=== PATIENT | female | born 1955 | race African-American/Black ===

== ENCOUNTER 2017-01-01 01:33 | Observation (INO) | payer OTHER ==
--- NOTE | 2017-01-01 02:16 | PDOC ---
History of Present Illness - History of Present Illness Initial Comments: 01/01/17 03:09 The patient is a 61 year old female with a PMHx of HIV, diabetes, glaucoma who presents to the ED with chronic low back pain. She states that the pain is worse than usual, so she is requesting pain medication. She denies weakness, numbness. She denies fever, chills, nausea, vomiting, diarrhea. <Aparna Wallace - Last Filed: 01/01/17 03:08> <Natalie Vidal - Last Filed: 01/01/17 07:22> - General Chief Complaint: Chronic pain Stated Complaint: BACK PAIN Time Seen by Provider: 01/01/17 02:16 Past History <Aparna Wallace - Last Filed: 01/01/17 03:08> - Past Medical History Diabetes: Yes HTN: Yes HIV: Yes Thyroid Disease: Yes - Surgical History Abdominal Surgery: Yes Appendectomy: Yes - Immunization History Immunization Up to Date: Yes - Psycho/Social/Smoking Cessation Hx Anxiety: No Suicidal Ideation: No Smoking Status: No Smoking History: Never smoked Have you smoked in the past 12 months: No Information on smoking cessation initiated: No Hx Alcohol Use: No Drug/Substance Use Hx: No Substance Use Type: None <Natalie Vidal - Last Filed: 01/01/17 07:22> - Past Medical History Allergies/Adverse Reactions: Allergies Allergy/AdvReac Type Severity Reaction Status Date / Time metronidazole [From Flagyl] Allergy Verified 01/01/17 01:46 Home Medications: Ambulatory Orders Aspirin [ASA -] 81 mg PO DAILY 12/18/15 Efavirenz/Emtricitab/Tenofovir [Atripla Tablet -] 1 tab PO DAILY 12/18/15 Hydrochlorothiazide 25 mg PO DAILY 12/18/15 Insulin Aspart [Novolog Flexpen] 10 unit SQ TID 12/18/15 Insulin Glargine,Hum.rec.anlog [Lantus Solostar PEN -] 55 units SQ HS 12/18/15 Metformin HCl [Glucophage] 1,000 mg PO AM 12/18/15 Doxepin HCl 200 mg PO DAILY 01/06/16 Metformin HCl 500 mg PO ACDIN 01/06/16 Ziprasidone HCl [Geodon] 40 mg PO DAILY 01/06/16 Review of Systems - Review of Systems Comments:: 01/01/17 03:09 GENERAL/CONSTITUTIONAL: No fever or chills. No weakness. HEAD, EYES, EARS, NOSE AND THROAT: No change in vision. No ear pain or discharge. No sore throat. CARDIOVASCULAR: No chest pain or shortness of breath. RESPIRATORY: No cough, wheezing, or hemoptysis. GASTROINTESTINAL: No nausea, vomiting, diarrhea or constipation. GENITOURINARY: No dysuria, frequency, or change in urination. MUSCULOSKELETAL: + low back pain. No joint or muscle swelling or pain. No neck pain. SKIN: No rash NEUROLOGIC: No headache, vertigo, loss of consciousness, or change in strength/ sensation. ENDOCRINE: No increased thirst. No abnormal weight change. HEMATOLOGIC/LYMPHATIC: No anemia, easy bleeding, or history of blood clots. ALLERGIC/IMMUNOLOGIC: No hives or skin allergy. <Aparna Wallace - Last Filed: 01/01/17 03:08> *Physical Exam - Vital Signs Last Vital Signs Temp Pulse Resp BP Pulse Ox 97.2 F L 105 H 20 160/89 96 01/01/17 01:46 01/01/17 01:46 01/01/17 01:46 01/01/17 01:46 01/01/17 01:46 - Physical Exam Comments: 01/01/17 03:09 GENERAL: Awake, alert, and fully oriented, in no acute distress HEAD: No signs of trauma EYES: PERRLA, EOMI, sclera anicteric, conjunctiva clear ENT: Auricles normal inspection, hearing grossly normal, nares patent, oropharynx clear without exudates. Moist mucosa NECK: Normal ROM, supple, no lymphadenopathy, JVD, or masses LUNGS: Breath sounds equal, clear to auscultation bilaterally. No wheezes, and no crackles HEART: Regular rate and rhythm, normal S1 and S2, no murmurs, rubs or gallops ABDOMEN: Soft, nontender, normoactive bowel sounds. No guarding, no rebound. No masses EXTREMITIES: + back tenderness. No bony deformities. Normal range of motion, no edema. No clubbing or cyanosis. No cords, erythema, or tenderness NEUROLOGICAL: Cranial nerves II through XII grossly intact. Normal speech, normal gait SKIN: Warm, Dry, normal turgor, no rashes or lesions noted. <Aparna Wallace - Last Filed: 01/01/17 03:08> - Vital Signs Last Vital Signs Temp Pulse Resp BP Pulse Ox 97.2 F L 105 H 20 160/89 96 01/01/17 01:46 01/01/17 01:46 01/01/17 01:46 01/01/17 01:46 01/01/17 01:46 <Natalie Vidal - Last Filed: 01/01/17 07:22> ED Treatment Course - Medications Given in the ED: ED Medications Discontinued Medications Generic Name Dose Route Start Last Admin Trade Name Guillaumeq PRN Reason Stop Dose Admin Cyclobenzaprine HCl 10 mg 01/01/17 02:34 01/01/17 02:44 Flexeril - PO 01/01/17 02:35 10 mg ONCE ONE Administration Ketorolac Tromethamine 60 mg 01/01/17 02:35 01/01/17 02:45 Toradol Injection - IM 01/01/17 02:36 60 mg ONCE ONE Administration <Aparna Wallace - Last Filed: 01/01/17 03:08> - LABORATORY CBC & Chemistry Diagram: 01/01/17 05:40 01/01/17 05:40 <Natalie Vidal - Last Filed: 01/01/17 07:22> Medical Decision Making - Medical Decision Making 01/01/17 07:12 Pt comes in with her "usual back pain" however she has tachycardia and she has a history of HIV and diabetes and she has abdominal pain. Pt admits that todays pain is worse than her usual pain. She is a poor historian. 01/01/17 07:16 Patient Name: Saniya Gold This is a preliminary report by imaging sr. operations manager Exam: Noncontrast CT abdomen and pelvis Images: 544 Clinical indication: Back pain. HIV positive. Findings: Subsegmental dependent atelectatic changes are noted in the lung bases. The liver, gallbladder, spleen and pancreas all have a normal unenhanced appearance. The adrenal glands are unremarkable. The kidneys have a normal unenhanced appearance. No calculi are seen. There is no hydronephrosis or hydroureter. A short segment of prominent small bowel is noted in the midabdomen measuring up to 3.3 cm in diameter. The majority of bowel is nondistended. The appendix has a normal appearance. Colonic diverticulosis is noted without evidence of diverticulitis. The uterus is anteverted. A fibroid is noted in the fundus. No adnexal masses are seen. Fat- containing ventral hernias are noted. The urinary bladder is unremarkable. No abdominal or pelvic adenopathy is seen. No lytic or blastic destructive osseous lesions are seen. Impression: Short segment of distended small bowel could be transient and physiologic. There is no associated mesenteric infiltration. This could also represent an early or low grade bowel obstruction. Fibroid uterus. No inflammatory process identified in the abdomen or pelvis. No abdominal mass, adenopathy or collection seen. THIS DOCUMENT HAS BEEN ELECTRONICALLY SIGNED 01/01/17 07:21 Pt will be signed out to the day doctor. She is awaiting EKG; and zosyn abx; ( NOTE SHE IS ALLERGIC TO FLAGYL) she will require admission. <Natalie Vidal - Last Filed: 01/01/17 07:22> *DC/Admit/Observation/Transfer - Attestations Scribe Attestion: 01/01/17 03:10 Documentation prepared by Aparna Wallace, acting as medical billing coordinator for Natalie Vidal MD. <Aparna Wallace - Last Filed: 01/01/17 03:08> <Natalie Vidal - Last Filed: 01/01/17 07:22> Diagnosis at time of Disposition: HIV disease, Bowel obstruction - Discharge Dispostion Condition at time of disposition: Guarded - Referrals Referrals: STAFF,NOT ON [Primary Care Provider] -
[2017-01-01] MEDS ORDERED: CYCLOBENZAPRINE HCL 10 MG TABLET (FP) PO ONE (02:34)
[2017-01-01] MEDS ORDERED: KETOROLAC TROMETHAMINE 60 MG/2 ML VIAL IM ONE (02:35)
[2017-01-01] MEDS ORDERED: CYCLOBENZAPRINE HCL 10 MG TABLET (FP) ONE (02:37)
[2017-01-01] MEDS ORDERED: KETOROLAC TROMETHAMINE 60 MG/2 ML VIAL ONE (02:37)
[2017-01-01 03:17] LABS: URINE APPEARANCE CLEAR; URINE BILIRUBIN NEGATIVE (NEGATIVE); URINE COLOR STRAW; URINE GLUCOSE (UA) 3+ (NEGATIVE); URINE KETONE NEGATIVE (NEGATIVE); URINE NITRITE NEGATIVE (NEGATIVE); URINE UROBILINOGEN NEGATIVE E.U./dl (0.2-1.0)
[2017-01-01 03:25] LABS: URINE BLOOD 1+ (NEGATIVE); URINE LEUK ESTERASE 1+ (NEGATIVE); URINE PROTEIN 2+ (NEGATIVE)
[2017-01-01 03:27] LABS: URINE BACTERIA RARE /hpf (NONE SEEN); URINE RBC 7 /hpf (0-3); URINE WBC 10 /hpf (3-5)
[2017-01-01] MEDS ORDERED: SODIUM CHLORIDE 0.9% 500 ML INFUS.BAG IV ONE (05:20)
[2017-01-01 06:14] LABS: MCH 29.6 pg (25.7-33.7); MCHC 32.7 g/dl (32.0-36.0); MEAN CELL VOLUME 90.3 fl (80-96); MEAN PLT VOLUME 8.5 fl (7.5-11.1); PLATELET COUNT 309 K/MM3 (134-434); RDW 13.6 % (11.6-15.6); WHITE BLOOD COUNT 16.1 K/mm3 (4.0-10.0)
[2017-01-01 06:36] LABS: ALBUMIN 3.3 g/dl (3.4-5.0); BILIRUBIN,TOTAL 0.2 mg/dL (0.2-1.0); CALCIUM 9.1 mg/dL (8.5-10.1); CREATININE 1.8 mg/dL (0.55-1.02); TOT PROT 7.8 g/dl (6.4-8.2)
[2017-01-01 06:52] LABS: PLATELET ESTIMATE ADEQUATE (NORMAL)
[2017-01-01 07:18] LABS: TROPONIN I 0.02 ng/ml (0.00-0.05)
[2017-01-01] MEDS ORDERED: PIPERACILLIN/TAZOB 3.375 GM 3.375 GM in DEXTROSE 5%-WATER - 50 ML IVPB ONE (07:18)
[2017-01-01] MEDS ORDERED: PIPERACILLIN/TAZOB 3.375 GM 50 ML IVPB ONE (07:23)
--- NOTE | 2017-01-01 11:06 | PDOC ---
*Physical Exam - Vital Signs Last Vital Signs Temp Pulse Resp BP Pulse Ox 97.3 F L 81 18 110/76 97 01/01/17 09:40 01/01/17 09:40 01/01/17 09:40 01/01/17 09:40 01/01/17 09:40 ED Treatment Course - LABORATORY CBC & Chemistry Diagram: 01/01/17 05:40 01/01/17 05:40 - ADDITIONAL ORDERS Additional order review: Laboratory Results 01/01/17 01/01/17 01/01/17 06:44 05:40 03:05 Sodium 134 L Potassium 4.3 Chloride 100 Carbon Dioxide 24 Anion Gap 10 BUN 21 H D Creatinine 1.8 H D Creat Clearance w eGFR 28.60 Random Glucose 336 H* D Calcium 9.1 Total Bilirubin 0.2 D AST 14 L D ALT 13 Alkaline Phosphatase 210 H D Creatine Kinase 158 D CK-MB (CK-2) 5.642 H Troponin I 0.02 Total Protein 7.8 Albumin 3.3 L Urine Color Straw Urine Appearance Clear Urine pH 6.0 Ur Specific [place] 1.012 Urine Protein 2+ H Urine Glucose (UA) 3+ H Urine Ketones Negative Urine Blood 1+ H Urine Nitrite Negative Urine Bilirubin Negative Urine Urobilinogen Negative Ur Leukocyte Esterase 1+ H Urine RBC 7 Urine WBC 10 Ur Epithelial Cells Rare Urine Bacteria Rare 01/01/17 05:40 RBC 4.30 MCV 90.3 MCHC 32.7 RDW 13.6 MPV 8.5 Neutrophils % 38.0 L D Lymphocytes % 49.0 H Monocytes % 2.0 L Eosinophils % 1.0 - Medications Given in the ED: ED Medications Discontinued Medications Generic Name Dose Route Start Last Admin Trade Name Freq PRN Reason Stop Dose Admin Cyclobenzaprine HCl 10 mg 01/01/17 02:34 01/01/17 02:44 Flexeril - PO 01/01/17 02:35 10 mg ONCE ONE Administration Piperacillin Sod/Tazobactam 50 mls @ 100 mls/hr 01/01/17 07:18 01/01/17 07:35 Sod 3.375 gm/ Dextrose IVPB 01/01/17 07:47 100 mls/hr ONCE ONE Administration Protocol Ketorolac Tromethamine 60 mg 01/01/17 02:35 01/01/17 02:45 Toradol Injection - IM 01/01/17 02:36 60 mg ONCE ONE Administration Sodium Chloride 1,000 ml 01/01/17 05:20 01/01/17 06:03 Normal Saline - IV 01/01/17 05:21 1,000 ml ONCE ONE Administration Medical Decision Making - Medical Decision Making 01/01/17 11:01 Labs, CT and my repeat medical exam, Obs admit for Uncontrolled DM, and Abdominal Distention and low grade obstruction. Will assume she has a UTI[ Culture Pending] *DC/Admit/Observation/Transfer Diagnosis at time of Disposition: HIV disease, Hyperglycemia Bowel obstruction Qualifiers: Intestinal obstruction type: unspecified Qualified Code(s): K56.60 - Unspecified intestinal obstruction - Discharge Dispostion Condition at time of disposition: Guarded Admit: Yes - Referrals Referrals: STAFF,NOT ON [Primary Care Provider] - - Patient Instructions - Post Discharge Activity
[2017-01-01] MEDS ORDERED: ACETAMINOPHEN 325 MG TABLET (FP) PO PRN (12:20)
--- NOTE | 2017-01-01 12:47 | PN ---
Teaching Attending Note Name of Resident: Afua Fuentes ATTENDING PHYSICIAN STATEMENT I saw and evaluated the patient. I reviewed the resident's note and discussed the case with the resident. I agree with the resident's findings and plan as documented. SUBJECTIVE:61yo F c/o low back pain intermittent over the past 3 months. was started on gabapentin which typically alleviates the pain but states it did not help her pain this morning and prompted her to come to the ER. she states that she is still able to ambulate with the pain. pain is not moving and is limited to the back. reports no bowel/bladder incontinence. has not followed up with a doctor to further evaluate her back. states she last ate in the evening and tolerated well. had normal BM yesterday. passing significants amount of flatus and belching. no difficulty urinating. denies CP, SOB,fever, chills, N/V/C/D, dysuria, urinary frequency, hematuria, abdominal pain. recent abx use or travel. no sick contacts. states her viral load was checked last month and was undetectable. states she had abdominal surgery for hysterctomy and appendectomy. (however CT scan reports uterus and appendix) OBJECTIVE: Last Vital Signs Temp Pulse Resp BP Pulse Ox 97.3 F L 81 18 110/76 97 01/01/17 09:40 01/01/17 09:40 01/01/17 09:40 01/01/17 09:40 01/01/17 09:40 General NAD, flat affect CV S1 S2 RRR no murmur/rub/gallop Lungs CTA B/L no wheezing/rales/rhonchi Abdomen soft ND/NT hypoactive BS. tympanic throughout, obese, old surgical incision below the umbilicus Extremities no pedal edema, no rashes ASSESSMENT AND PLAN: 61yo F wtih PMH HTN, depression, HIV on HARRT, DM, presented to the ER and was admitted for further evaluation of their emergent condition 1. Early SBO- hx of abdominal surgery and doxepin. will make NPO for now and IVF. serial abdominal exam. await official read of CT scan however on my review no definite obstruction appreciated. significant ileus and fecal retention noted. will give suppository. after official read if pt continues to feel asymptomatic and no change in physical exam will consider advancing diet to liquids. repeat AXR in AM. consider surgical consult if theres change in status 2. SIRS- leukocytosis and tachycardia which can be pain induced. no urinary symptoms and CXR clear. on reviewing old labs appears pt appears to have chronic leukocytosis, will check BCx. was given zosyn in the ER. will hold off on continuing abx at this time and monitor labs. f/u cx 3. ERIKA- likely dehydration. IVF. monitor UOP. avoid nephrotoxic agents 4. Hyperglycemia- check A1c. BGM Q6H. hold metformin at this time. reduced dosing of lantus. iss, bgm 5. HTN- will hold HCTZ at this time for likely dehydration, if BP remains elevated will consider alternative agent 6. HIV- as per pt has undetectable viral load. hold HARRT 7. Depression- restart meds once tolerating po 8. DVT ppx- hep sq
--- NOTE | 2017-01-01 12:59 | HP ---
CHIEF COMPLAINT:low back pain PCP: HISTORY OF PRESENT ILLNESS: 61 year old female with a past medical history of HIV (on antivirals), Diabetes mellitus type II, and sciatica, present to the emergency room for worsening low back pain that has started this am. The pain is a 6/10, sharp, non radiating, in the region of the middle, low back. Patient denies lifting something heavy. She thinks she may have "twisted" her back. Patient denies fever, chills, n, v, chest pain, sob, abdominal pain, dysuria, polyuria. ER course was notable for: (1)WBC 16 (2)UA + LE +1, rbc 7, wbc 10 (3)imaging CT early/low grade bowel obstruction Recent Travel:no PAST MEDICAL HISTORY: DM type II, HIV, HTN, HLD, chronic low back pain PAST SURGICAL HISTORY: Right oophorectomy Social History: Smoking:no Alcohol:no Drugs: IVDA crack, heroin; quit ten years ago Family History: Allergies metronidazole [From Flagyl] Allergy (Verified 01/01/17 07:40) HOME MEDICATIONS: Home Medications Medication Instructions Recorded Aspirin [ASA -] 81 mg PO DAILY 12/18/15 Efavirenz/Emtricitab/Tenofovir 1 tab PO DAILY 12/18/15 [Atripla Tablet -] Hydrochlorothiazide 25 mg PO DAILY 12/18/15 Insulin Aspart [Novolog Flexpen] 10 unit SQ TID 12/18/15 Insulin Glargine,Hum.rec.anlog 55 units SQ HS 12/18/15 [Lantus Solostar PEN -] Metformin HCl [Glucophage] 1,000 mg PO AM 12/18/15 Doxepin HCl 200 mg PO DAILY 01/06/16 Metformin HCl 500 mg PO ACDIN 01/06/16 Ziprasidone HCl [Geodon] 40 mg PO DAILY 01/06/16 REVIEW OF SYSTEMS CONSTITUTIONAL: Absent: fever, chills, diaphoresis, generalized weakness, malaise, loss of appetite, weight change HEENT: Absent: rhinorrhea, nasal congestion, throat pain, throat swelling, difficulty swallowing, mouth swelling, ear pain, eye pain, visual changes CARDIOVASCULAR: Absent: chest pain, syncope, palpitations, irregular heart rate, lightheadedness , peripheral edema RESPIRATORY: Absent: cough, shortness of breath, dyspnea with exertion, orthopnea, wheezing, stridor, hemoptysis GASTROINTESTINAL: Absent: abdominal pain, abdominal distension, nausea, vomiting, diarrhea, constipation, melena, hematochezia GENITOURINARY: Absent: dysuria, frequency, urgency, hesitancy, hematuria, flank pain, genital pain MUSCULOSKELETAL: Present: low back pain, nonradiating Absent: myalgia, arthralgia, joint swelling, neck pain SKIN: Absent: rash, itching, pallor HEMATOLOGIC/IMMUNOLOGIC: Absent: easy bleeding, easy bruising, lymphadenopathy, frequent infections ENDOCRINE: Absent: unexplained weight gain, unexplained weight loss, heat intolerance, cold intolerance NEUROLOGIC: Absent: headache, focal weakness or paresthesias, dizziness, unsteady gait, seizure, mental status changes, bladder or bowel incontinence PSYCHIATRIC: Absent: anxiety, depression, suicidal or homicidal ideation, hallucinations. PHYSICAL EXAMINATION GENERAL: Awake, alert, and fully oriented, in no acute distress. HEAD: Normal with no signs of trauma. EYES: Pupils equal, round and reactive to light, extraocular movements intact, sclera anicteric, conjunctiva clear. No lid lag. EARS, NOSE, THROAT: Ears normal, nares patent, oropharynx clear without exudates. Moist mucous membranes. tongue with significant leukoplakia NECK: Normal range of motion, supple without lymphadenopathy, JVD, or masses. LUNGS: Breath sounds equal, clear to auscultation bilaterally. No wheezes, and no crackles. No accessory muscle use. HEART: Regular rate and rhythm, normal S1 and S2 without murmur, rub or gallop. ABDOMEN: Soft, nontender, not distended, normoactive bowel sounds, no guarding, no rebound, no masses. No hepatomegaly or splenomegaly. MUSCULOSKELETAL: Normal range of motion at all joints. tenderness to palpation of lower back , bl. + CVA tenderness. UPPER EXTREMITIES: 2+ pulses, warm, well-perfused. No cyanosis. No clubbing. Cap refill <2 seconds. No peripheral edema. LOWER EXTREMITIES: 2+ pulses, warm, well-perfused. No calf tenderness. No peripheral edema. NEUROLOGICAL: Cranial nerves II-XII intact. Normal speech. Normal gait. PSYCHIATRIC: Cooperative. Good eye contact. Appropriate mood and affect. SKIN: Warm, dry, normal turgor, no rashes or lesions noted. ASSESSMENT/PLAN: 61 year old female with PMH of HIV, DM II, chronic low back pain, presenting with worsening low back pain. Admitted for early/low grade obstruction and UTI. 1. Early/Low grade bowel obstruction: -NPO, bowel rest -IVF NS 75mls/hr -suppository -watch for clinical signs of resolving obstruction: belching, flatus -repeat abdominal x ray in the AM 2. SIRS criteria met: tachycardic >100; leukocytosis; secondary to questionable UTI: -wbc count 16: patient wbc baseline around 12 -1x antibiotic given in ER; will hold antibiotic for now; -await cultures urine and blood cultures 3. Diabetes Mellitus Type II: hyperglycemia -levemir 25U one time HS tonight -Insulin SS -Glucose check Q6h -hemoglobin a1c 4. HIV: -hold antivirals -current viral load undetectable as per patient; checked one month ago 5. HTN: -hydrochlorothiazide 25mg po ddaily : hold -hold until can tolerate po 6. Low back pain: -Lumbar spine xray did not indicate fracture -degenerative changes -tylenol 650mg po q4h prn for pain -flexeril as outpatient prn -f/u with ortho 7. Acute kidney injury: -hold all nephrotoxic drugs -BUN/Cr 21/1.8 -secondary to poor glycemic control, or home medication possibly metformin FEN: Fluids: NS 75mls. 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 Code(s): E11.29 - TYPE 2 DIABETES MELLITUS W OTH DIABETIC KIDNEY COMPLICATION (5) HIV (human immunodeficiency virus infection) Code(s): Z21 - ASYMPTOMATIC HUMAN IMMUNODEFICIENCY VIRUS INFECTION STATUS (6) HLD (hyperlipidemia) Code(s): E78.5 - HYPERLIPIDEMIA, UNSPECIFIED (7) Sciatica Code(s): M54.30 - SCIATICA, UNSPECIFIED SIDE Qualifiers: Laterality: bilateral Qualified Code(s): M54.31 - Sciatica, right side (8) Urinary tract infection Code(s): N39.0 - URINARY TRACT INFECTION, SITE NOT SPECIFIED Visit type - Emergency Visit Emergency Visit: Yes ED Registration Date: 01/01/17 Care time: The patient presented to the Emergency Department on the above date and was hospitalized for further evaluation of their emergent condition. - New Patient This patient is new to me today: Yes Date on this admission: 01/01/17 - Critical Care Critical Care patient: No
[2017-01-01] MEDS: SODIUM CHLORIDE 1,000 ML IV SCH (13:10)
[2017-01-01 13:55] VITALS: BMI 34.5
[2017-01-01] MEDS ORDERED: BISACODYL 10 MG SUPP.RECT RC ONE (14:00)
[2017-01-01] MEDS ORDERED: INSULIN SLIDING SCALE (NOVOLOG) 1 VIAL SQ SCH ×2 (16:30→18:00)
[2017-01-01] MEDS ORDERED: BISACODYL 10 MG SUPP.RECT PR ONE (17:23)
[2017-01-01] MEDS ORDERED: INSULIN DETEMIR 100 UNITS/ML MDV SQ ONE (21:00)
[2017-01-01] MEDS ORDERED: INSULIN DETEMIR 100 UNITS/ML MDV SQ SCH (22:00)
[2017-01-01] MEDS ORDERED: ZOLPIDEM TARTRATE 5 MG TABLET PO ONE ×2 (22:02)
[2017-01-01] MEDS: INSULIN SLIDING SCALE (NOVOLOG) 1 VIAL SQ SCH (22:06)
[2017-01-02] MEDS: HEPARIN NA (PORCINE) 5,000 UNITS/ML 1ML VIAL SQ SCH ×2 (01:59→10:41)
[2017-01-02] MEDS: SODIUM CHLORIDE 1,000 ML IV SCH (01:59)
[2017-01-02] MEDS: INSULIN SLIDING SCALE (NOVOLOG) 1 VIAL SQ SCH ×2 (06:17→11:19)
[2017-01-02 06:39] VITALS: TEMP 98.7
[2017-01-02 07:54] LABS: BASOPHIL 0.8 % (0-2.0); EOSINOPHIL 2.2 % (0-4.5); MCH 30.4 pg (25.7-33.7); MCHC 33.6 g/dl (32.0-36.0); MEAN CELL VOLUME 90.5 fl (80-96); MEAN PLT VOLUME 8.5 fl (7.5-11.1); NEUTROPHILS 43.3 % (42.8-82.8); PLATELET COUNT 244 K/MM3 (134-434); RDW 13.8 % (11.6-15.6); WHITE BLOOD COUNT 9.5 K/mm3 (4.0-10.0)
[2017-01-02 08:12] LABS: ALBUMIN 2.8 g/dl (3.4-5.0); CALCIUM 8.6 mg/dL (8.5-10.1); CREATININE 1.3 mg/dL (0.55-1.02)
[2017-01-02 08:14] LABS: BILIRUBIN,TOTAL 0.2 mg/dL (0.2-1.0); TOT PROT 6.5 g/dl (6.4-8.2)
[2017-01-02 10:05] VITALS: BP 149/88; PULSE 108
[2017-01-02] MEDS ORDERED: INSULIN (NOVOLOG) ASPART 100 UNITS/ML 10ML VIAL ONE (11:13)
--- NOTE | 2017-01-02 12:08 | PN ---
Teaching Attending Note Name of Resident: Afua Fuentes ATTENDING PHYSICIAN STATEMENT I saw and evaluated the patient. I reviewed the resident's note and discussed the case with the resident. I agree with the resident's findings and plan as documented. SUBJECTIVE:currently asymptomatic. states she had a large BM yesterday and a small one this morning. tolerating diet well. denies CP, SOB,fever, chills, N/V/ C/D OBJECTIVE: Last Vital Signs Temp Pulse Resp BP Pulse Ox 98.7 F 108 H 20 149/88 96 01/02/17 10:00 01/02/17 10:00 01/02/17 10:01/02/17 10:01/01/17 21:33 General NAD, flat affect CV S1 S2 RRR no murmur/rub/gallop Lungs CTA B/L no wheezing/rales/rhonchi Abdomen soft ND/NT hypoactive BS, obese, old surgical incision below the umbilicus Extremities no pedal edema, no rashes ASSESSMENT AND PLAN: 61yo F wtih PMH HTN, depression, HIV on HARRT, DM, presented to the ER and was admitted for further evaluation of their emergent condition 1. Early SBO- hx of abdominal surgery and on doxepin which is know to cause paralytic ileus. diet advanced to liquids last night. had BM last night and this morning. pt remains asymptomatic. further review of the chart shows ileus since 2014. AXR today shows ileus with fecal retention. pt states she has GI appointment the end of the month and there was possibility of colonoscopy. states she was started on stool softeners a week ago but has not been taking them. counseled in detail need to have minimum BM daily. encouraged to f/u with GI appointement. informed her of medication that can be related to her symtpoms and risks of her bowels being distended can lead to obstruction and perforation. informed her to eat high fiber diet. notified her of signs of obstruction and to report to ER if these symptoms develop. 2. SIRS- leukocytosis resolved. no signs of infection. no indication for abx. 3. ERIKA- likely dehydration.imrpoved. d/c ivf avoid nephrotoxic agents 4. Hyperglycemia- A1c 11.6. resume home regimen. counseled on diabetic diet and medication complaince. 5. HTN- will resume HCTZ 6. HIV- as per pt has undetectable viral load. cont HARRT 7. Depression- restart medications with hesitation, will defer to psychiatrist of changing medications 8. chronic back pain- tylenol prn pain. PT outpatient referral 9. DVT ppx- hep sq
--- NOTE | 2017-01-02 12:12 | EKG ---
Test Reason : Blood Pressure : / mmHG Vent. Rate : 099 BPM Atrial Rate : 099 BPM P-R Int : 148 ms QRS Dur : 080 ms QT Int : 384 ms P-R-T Axes : 048 -28 024 degrees QTc Int : 492 ms NORMAL SINUS RHYTHM MINIMAL VOLTAGE CRITERIA FOR LVH, MAY BE NORMAL VARIANT PROLONGED QT ABNORMAL ECG WHEN COMPARED WITH ECG OF 06-JAN-2016 10:55, NO SIGNIFICANT CHANGE WAS FOUND Confirmed by CAROLINA DE OLIVEIRA MD ([id number]) on 01/02/2017 12:12:15 PM Referred By: Confirmed By:CAROLINA DE OLIVEIRA MD
--- NOTE | 2017-01-02 15:34 | DS ---
Physical Exam: SUBJECTIVE: Patient seen and examined, ambulating without pain. Two watery bowel movements last night. Denies fever, chills, n, v, abdominal pain or back pain. OBJECTIVE: Vital Signs Period Temp Pulse Resp BP Sys/Isbell Pulse Ox Last 24 Hr 98.3 F-98.7 F 98-108 18-20 131-149/76-88 95-96 PHYSICAL EXAM GENERAL: The patient is awake, alert, and fully oriented, in no acute distress. HEAD: Normal with no signs of trauma. EYES: PERRL, extraocular movements intact, sclera anicteric, conjunctiva clear. ENT: Ears normal, nares patent, oropharynx clear without exudates, moist mucous membranes. NECK: Trachea midline, full range of motion, supple. LUNGS: Breath sounds equal, clear to auscultation bilaterally, no wheezes, no crackles, no accessory muscle use. HEART: Regular rate and rhythm, S1, S2 without murmur, rub or gallop. ABDOMEN: Soft, nontender, nondistended, normoactive bowel sounds, no guarding, no rebound, no hepatosplenomegaly, no masses. EXTREMITIES: 2+ pulses, warm, well-perfused, no edema. NEUROLOGICAL: Cranial nerves II through XII grossly intact. Normal speech, gait not observed. PSYCH: Normal mood, normal affect. SKIN: Warm, dry, normal turgor, no rashes or lesions noted. LABS CBC, BMP 01/02/17 06:15 01/02/17 06:15 HOSPITAL COURSE: Date of Admission:01/01/17 Date of Discharge: 01/02/17 This is a 61 year old female with a past medical history of depression, HIV on HARRT, DM type II, presented to the emergency room with worsening back pain. Patient found to have a early/mild small bowel obstruction vs dilation. She was kept NPO, started on IV hydration and pain was controlled with Tylenol. Patients 's diet was advanced, which she tolerated well. Repeat abdominal xray in the am did reveal ileus with fecal impaction. Patient started on stool softeners, counseled on diet. She has an appointment to she GI doctor this month. During admission patient fulfilled SIRS criteria with leukocytosis and tachycardia. This resolved the next day, no signs of infections and there was no indication for antibiotics. On admission, labs indicated acute kidney injury that was related to dehydration and improved. Patient also has uncontrolled diabetes, hemoglobin A1C was around 11. Patient was treated here with levemir and insulin sliding scale. She is advised to keep a tight glucose control and follow up with her primary regarding this issue. Patient has HIV, antivirals were held during hospital stay, due effects on kidney. Patient reveals viral load was undetectable last month. Patient also had a history of depression and on doxepin , that could cause paralytic ileus. Would advise speaking to her psychiatrist regarding possible change in this medication. Minutes to complete discharge: 40 Discharge Summary Reason For Visit: UTI, DIABETES MELLITUS, SMALL BOWEL OBSTRUCTION Current Active Problems Bowel obstruction (Acute) Fecal retention (Acute) HIV disease (Acute) Hyperglycemia (Acute) Ileus (Acute) Morbid obesity (Acute) Condition: Improved - Instructions Diet, Activity, Other Instructions: continue to take stool softeners daily to ensure you have daily bowel movements. Follow up with your GI doctor the end of the month for your scheduled appointment as you may require colonoscopy. your slow bowel movement may be related to your medication (Doxepin). Follow a diabetic, high fiber diet. Follow up with your primary care doctor this week take tylenol as needed for back pain, start doing physical therapy. you can schedule for outpatient physical therapy at [facility] for chronic back pain ([phone]). if your symptoms worsen than you may benefit from further evaluation from an orthopedic surgeon if you develop nausea and vomiting or abdominal pain return to the ER. Referrals: STAFF,NOT ON [Primary Care Provider] - Disposition: HOME - Home Medications Comprehensive Discharge Medication List: Ambulatory Orders Aspirin [ASA -] 81 mg PO DAILY 12/18/15 Efavirenz/Emtricitab/Tenofovir [Atripla Tablet -] 1 tab PO DAILY 12/18/15 Hydrochlorothiazide 25 mg PO DAILY 12/18/15 Insulin Aspart [Novolog Flexpen] 10 unit SQ TID 12/18/15 Insulin Glargine,Hum.rec.anlog [Lantus Solostar PEN -] 55 units SQ HS 12/18/15 Metformin HCl [Glucophage] 1,000 mg PO AM 12/18/15 Doxepin HCl 200 mg PO DAILY 01/06/16 Metformin HCl 500 mg PO ACDIN 01/06/16 Ziprasidone HCl [Geodon] 40 mg PO DAILY 01/06/16 Docusate Sodium [Colace -] 100 mg PO TID #90 capsule 01/02/17 Problem List - Problems (1) Bowel obstruction Code(s): K56.60 - UNSPECIFIED INTESTINAL OBSTRUCTION Qualifiers: Intestinal obstruction type: unspecified Qualified Code(s): K56.60 - Unspecified intestinal obstruction (2) HIV disease Code(s): B20 - HUMAN IMMUNODEFICIENCY VIRUS [HIV] DISEASE (3) Hyperglycemia Code(s): R73.9 - HYPERGLYCEMIA, UNSPECIFIED (4) DM type 2 causing renal disease Code(s): E11.29 - TYPE 2 DIABETES MELLITUS W OTH DIABETIC KIDNEY COMPLICATION (5) HIV (human immunodeficiency virus infection) Code(s): Z21 - ASYMPTOMATIC HUMAN IMMUNODEFICIENCY VIRUS INFECTION STATUS (6) HLD (hyperlipidemia) Code(s): E78.5 - HYPERLIPIDEMIA, UNSPECIFIED (7) Sciatica Code(s): M54.30 - SCIATICA, UNSPECIFIED SIDE Qualifiers: Laterality: bilateral Qualified Code(s): M54.31 - Sciatica, right side This patient is new to me today: No Emergency Visit: Yes ED Registration Date: 01/01/17 Care time: The patient presented to the Emergency Department on the above date and was hospitalized for further evaluation of their emergent condition. Critical Care patient: No - Discharge Referral Referred to [facility] No
== END 2017-01-02 12:00 | disposition home or self-care (01) ==
LOC: JER 01:33 → JERBED 11:07 → J5S 13:10
PROVIDERS: ADMIT Internal Medicine; ATTEND Internal Medicine
DX: K56.69 Other intestinal obstruction (principal); M54.5 Low back pain; E11.65 Type 2 diabetes mellitus with hyperglycemia; H40.89 Other specified glaucoma; N17.9 Acute kidney failure, unspecified; I10 Essential (primary) hypertension; E86.0 Dehydration; M54.31 Sciatica, right side; R65.10 Systemic inflammatory response syndrome (SIRS) of non-infectious origin without acute organ dysfunction; F32.9 Major depressive disorder, single episode, unspecified; N39.0 Urinary tract infection, site not specified; E78.5 Hyperlipidemia, unspecified; Z21 Asymptomatic human immunodeficiency virus [HIV] infection status
CPT/HCPCS: 36415; 71010-TC; 72100-TC; 74020-TC; 74176; 80053; 81003; 81015; 82550; 82553; 83036; 84484; 85025; 87040; 87086; 93005; 93010; 99285-25; G0378; J1644

== ENCOUNTER 2017-03-26 00:34 | Emergency (ER) | payer OTHER ==
[2017-03-26 01:15] VITALS: BP 128/81; PULSE 76; TEMP 97.9; BMI 34.8
[2017-03-26] MEDS ORDERED: OXYCODONE/APAP 5/325MG COMBO TABLET PO ONE (02:21)
--- NOTE | 2017-03-26 02:30 | PDOC ---
History of Present Illness - General Chief Complaint: Back Pain Stated Complaint: BACK PAIN Time Seen by Provider: 03/26/17 01:41 History Source: Patient Exam Limitations: No Limitations - History of Present Illness Initial Comments: 03/26/17 02:22 Patient is a 61 year old female with HIV+, HTN, glaucoma, DM, appendectomy, right oopherectomy, c/o lower back pain. States she was diagnosed with sciatica 2 months ago. Has been using Naproxen for pain without any relief. Pain is 9/10 throbbing, this episode started 3:30pm today. Took naproxen then without any improvement in symptoms. denies bowel or bladder incontinence, saddle anesthesia. PMD: Dr. Zuleta PMHX: as above PSocHx: PFamHX; noncontributary ALL:metronidazole GENERAL/CONSTITUTIONAL: [No fever or chills. No weakness. No weight change.] HEAD, EYES, EARS, NOSE AND THROAT: [No change in vision. No ear pain or discharge. No sore throat.] CARDIOVASCULAR: [No chest pain or shortness of breath.] RESPIRATORY: [No cough, wheezing, or hemoptysis.] GASTROINTESTINAL: [No nausea, vomiting, diarrhea or constipation. No rectal bleeding.] GENITOURINARY: [No dysuria, frequency, or change in urination.] MUSCULOSKELETAL: (+) joint or muscle swelling or pain. No neck or back pain.] SKIN AND BREASTS: [No rash or easy bruising.] NEUROLOGIC: [No headache, vertigo, loss of consciousness, or loss of sensation.] PSYCHIATRIC: [No depression or anxiety.] ENDOCRINE: [No increased thirst. No abnormal weight change.] HEMATOLOGIC/LYMPHATIC: [No anemia, easy bleeding, or history of blood clots.] ALLERGIC/IMMUNOLOGIC: [No hives or skin allergy. No latex allergy.] GENERAL: [The patient is awake, alert, and fully oriented, in no acute distress. ] HEAD: [Normal with no signs of trauma.] EYES: [Pupils equal, round and reactive to light, extraocular movements intact, sclera anicteric, conjunctiva clear.] ENT: [Ears normal, nares patent, oropharynx clear without exudates. Moist mucous membranes.] NECK: [Normal range of motion, supple without lymphadenopathy, JVD, or masses.] LUNGS: [Breath sounds equal, clear to auscultation bilaterally. No wheezes, and no crackles.] HEART: [Regular rate and rhythm, normal S1 and S2 without murmur, rub.] ABDOMEN: [Soft, nontender, normoactive bowel sounds. No guarding, no rebound. No masses.] BACK: tenderness b/l paraspinal tenderness lumbar, tenderness to the right buttock midline. EXTREMITIES: [Normal range of motion, no edema. No clubbing or cyanosis. No cords, erythema, or tenderness.] NEUROLOGICAL: [Cranial nerves II through XII grossly intact. Normal speech, normal gait with cane, (+) 5/5 strength b/l, DTR's intact] PSYCH: [Normal mood, normal affect.] SKIN: [Warm, Dry, normal turgor, no rashes or lesions noted.] Past History - Past Medical History Allergies/Adverse Reactions: Allergies Allergy/AdvReac Type Severity Reaction Status Date / Time metronidazole [From Flagyl] Allergy Verified 03/26/17 01:15 Home Medications: Ambulatory Orders Aspirin [ASA -] 81 mg PO DAILY 12/18/15 Efavirenz/Emtricitab/Tenofovir [Atripla Tablet -] 1 tab PO DAILY 12/18/15 Hydrochlorothiazide 25 mg PO DAILY 12/18/15 Insulin Aspart [Novolog Flexpen] 10 unit SQ TID 12/18/15 Insulin Glargine,Hum.rec.anlog [Lantus Solostar PEN -] 55 units SQ HS 12/18/15 Metformin HCl [Glucophage] 1,000 mg PO AM 12/18/15 Doxepin HCl 200 mg PO DAILY 01/06/16 Metformin HCl 500 mg PO ACDIN 01/06/16 Ziprasidone HCl [Geodon] 40 mg PO DAILY 01/06/16 Docusate Sodium [Colace -] 100 mg PO TID #90 capsule 01/02/17 Cyclobenzaprine HCl [Flexeril 10 mg] 10 mg PO BID PRN #20 tablet 03/26/17 Tramadol HCl [Ultram] 50 mg PO TID #14 tablet MDD 4 03/26/17 Diabetes: Yes HTN: Yes HIV: Yes Thyroid Disease: Yes - Surgical History Abdominal Surgery: Yes Appendectomy: Yes - Immunization History Immunization Up to Date: Yes - Psycho/Social/Smoking Cessation Hx Anxiety: No Suicidal Ideation: No Smoking Status: No Smoking History: Never smoked Have you smoked in the past 12 months: No Information on smoking cessation initiated: No Hx Alcohol Use: No Drug/Substance Use Hx: No Substance Use Type: None *Physical Exam - Vital Signs Last Vital Signs Temp Pulse Resp BP Pulse Ox 97.9 F 76 19 128/81 98 03/26/17 01:08 03/26/17 01:08 03/26/17 01:08 03/26/17 01:08 03/26/17 01:08 Medical Decision Making - Medical Decision Making 03/26/17 02:30 Patient is a 61 year old female with HIV+, HTN, glaucoma, DM, appendectomy, right oopherectomy, c/o lower back pain. Pain is chronic but pain meds Rx does not control pain. here questing to have pain meds. Given percocet 1 tab without relief. Given Toradol 60mg IM and Flexeril 10mg po I discussed the physical exam findings, ancillary test results and final diagnoses with the patient. I answered all of the patient's questions. The patient was satisfied with the care received and felt comfortable with the discharge plan and treatment plan. The Patient agrees to follow up with the primary care physician within 24-72 hours. *DC/Admit/Observation/Transfer Diagnosis at time of Disposition: Chronic radicular pain of lower back - Discharge Dispostion Disposition: HOME Condition at time of disposition: Stable - Prescriptions Prescriptions: Cyclobenzaprine HCl [Flexeril 10 mg] 10 mg PO BID PRN #20 tablet PRN Reason: Back Pain Tramadol HCl [Ultram] 50 mg PO TID #14 tablet MDD 4 - Referrals Referrals: STAFF,NOT ON [Primary Care Provider] - - Patient Instructions Additional Instructions: Your Discharge Instructions: You must call primary care physician within 24 hours to arrange follow-up. Return to the Emergency Department with any new, persistent or worsening symptoms, for fever, chills, SOB, dizziness or any other concerning changes that may occur.
[2017-03-26] MEDS ORDERED: OXYCODONE/APAP 5/325MG COMBO TABLET ONE (02:45)
[2017-03-26] MEDS ORDERED: KETOROLAC TROMETHAMINE 60 MG/2 ML VIAL IM ONE (02:58)
[2017-03-26] MEDS ORDERED: CYCLOBENZAPRINE HCL 10 MG TABLET (FP) PO ONE (02:58)
[2017-03-26] MEDS ORDERED: CYCLOBENZAPRINE HCL 10 MG TABLET (FP) ONE (03:07)
[2017-03-26] MEDS ORDERED: KETOROLAC TROMETHAMINE 60 MG/2 ML VIAL ONE (03:07)
== END 2017-03-26 03:38 | disposition home or self-care (01) ==
LOC: SUPCPDRO 00:34 → JER 00:34
PROC: 3E0233Z Introduction of Anti-inflammatory into Muscle, Percutaneous Approach (ICD-10-PCS; principal; 2017-03-26)
DX: M54.16 Radiculopathy, lumbar region (principal); I10 Essential (primary) hypertension; E11.9 Type 2 diabetes mellitus without complications; Z79.4 Long term (current) use of insulin; Z79.84 Long term (current) use of oral hypoglycemic drugs; Z21 Asymptomatic human immunodeficiency virus [HIV] infection status
CPT/HCPCS: 96372; 99282-25

== ENCOUNTER 2017-06-01 03:11 | Emergency (ER) | payer OTHER ==
[2017-06-01 03:29] VITALS: BP 115/72; PULSE 97; TEMP 98.2; BMI 34.0
--- NOTE | 2017-06-01 03:30 | PDOC ---
History of Present Illness - General History Source: Patient Exam Limitations: No Limitations - History of Present Illness Initial Comments: 06/01/17 03:44 The patient is a 61 year old female with significant past medical history of CAD s/p recent stent placement x1 (2 weeks ago), HIV+, hypertension, diabetes, and glaucoma who presents to the ED for less than left hand numbness prior to arrival. Patient reports around 9pm yesterday evening she developed numbness at the lateral aspect of the left elbow. Denies any trauma to the area. States taking her medications prior to going to bed and subsequently her numbness improved. Patient reports prior to arrival she was awoken by the pain and numbness that was localized at the left third, fourth, and fifth digits and the dorsal aspect of the left hand. Patient recently had a stent placement done 2 weeks ago. Denies lightheadedness, diaphoresis, SOB, chest pain, jaw pain, shoulder pain, leg swelling, nausea, or vomiting. The patient denies fever, chills, cough, abdominal pain, and diarrhea. Allergies: amoxicillin, metronidazole Social History: No alcohol, tobacco, or drug use reported. Past Surgical History: s/p recent cardiac stent placement (2 weeks ago), appendectomy, right oophorectomy PCP: Dr. Zuleta <Pura Martinez - Last Filed: 06/01/17 04:53> - General History Source: Patient <Gina Roldanan - Last Filed: 06/01/17 21:34> - General Stated Complaint: NUMBNESS/HAND Time Seen by Provider: 06/01/17 03:22 Past History <Pura Martinez - Last Filed: 06/01/17 04:53> - Past Medical History Diabetes: Yes HTN: Yes HIV: Yes Thyroid Disease: Yes - Surgical History Abdominal Surgery: Yes Appendectomy: Yes - Immunization History Immunization Up to Date: Yes - Psycho/Social/Smoking Cessation Hx Anxiety: No Suicidal Ideation: No Smoking Status: No Smoking History: Never smoked Have you smoked in the past 12 months: No Number of Cigarettes Smoked Daily: 0 If you are a former smoker, when did you quit?: 0 Information on smoking cessation initiated: No Hx Alcohol Use: No Drug/Substance Use Hx: No Substance Use Type: None <Selvin Roldan - Last Filed: 06/01/17 21:34> - Past Medical History Allergies/Adverse Reactions: Allergies Allergy/AdvReac Type Severity Reaction Status Date / Time amoxicillin Allergy Verified 06/01/17 03:31 metronidazole [From Flagyl] Allergy Verified 06/01/17 03:31 Home Medications: Ambulatory Orders Aspirin [ASA -] 81 mg PO DAILY 12/18/15 Efavirenz/Emtricitab/Tenofovir [Atripla Tablet -] 1 tab PO DAILY 12/18/15 Hydrochlorothiazide 25 mg PO DAILY 12/18/15 Insulin Aspart [Novolog Flexpen] 10 unit SQ TID 12/18/15 Insulin Glargine,Hum.rec.anlog [Lantus Solostar PEN -] 45 units SQ HS 12/18/15 Ziprasidone HCl [Geodon] 40 mg PO DAILY 01/06/16 Cyclobenzaprine HCl [Flexeril 10 mg] 10 mg PO BID PRN #20 tablet 03/26/17 Lisinopril [Prinivil] 20 mg PO DAILY 06/01/17 Review of Systems - Review of Systems Able to Perform ROS?: Yes Comments:: 06/01/17 03:44 CONSTITUTIONAL: Absent: fever, chills, diaphoresis, generalized weakness, malaise, loss of appetite HEENT: Absent: rhinorrhea, nasal congestion, throat pain, throat swelling, difficulty swallowing, mouth swelling, ear pain, eye pain, visual Changes CARDIOVASCULAR: Absent: chest pain, syncope, palpitations, irregular heart rate, lightheadedness , peripheral edema RESPIRATORY: Absent: cough, shortness of breath, dyspnea with exertion, orthopnea, wheezing, stridor, hemoptysis GASTROINTESTINAL: Absent: abdominal pain, abdominal distension, nausea, vomiting, diarrhea, constipation, melena, hematochezia GENITOURINARY: Absent: dysuria, frequency, urgency, hesitancy, hematuria, flank pain, genital pain MUSCULOSKELETAL: +pain over the left third, fourth, and fifth digits Absent: myalgia, arthralgia , joint swelling SKIN: Absent: rash, itching, pallor NEUROLOGIC: +numbness over the left third, fourth, and fifth digits Absent: headache, focal weakness, dizziness, unsteady gait, seizure, mental status changes, bladder or bowel incontinence <Pura Martinez - Last Filed: 06/01/17 04:53> *Physical Exam - Vital Signs Last Vital Signs Temp Pulse Resp BP Pulse Ox 98.2 F 97 H 16 115/72 98 06/01/17 03:26 06/01/17 03:26 06/01/17 03:26 06/01/17 03:26 06/01/17 03:26 - Physical Exam Comments: 06/01/17 03:45 GENERAL: Well developed, well nourished. Awake and alert. No acute distress. HEENT: Normocephalic, atraumatic. PERRLA, EOMI. No conjunctival pallor. Sclera are non- icteric. Moist mucous membranes. Oropharynx is clear. NECK: Supple. Full ROM. No JVD. Carotid pulses 2+ and symmetric, without bruits. No thyromegaly. No lymphadenopathy. CARDIOVASCULAR: Regular rate and rhythm. No murmurs, rubs, or gallops. Distal pulses are 2+ and symmetric. PULMONARY: No evidence of respiratory distress. Lungs clear to auscultation bilaterally. No wheezing, rales or rhonchi. ABDOMINAL: Soft. Non-tender. Non-distended. No rebound or guarding. No organomegaly. Normoactive bowel sounds. MUSCULOSKELETAL Normal range of motion at all joints. No bony deformities. No CVA tenderness. EXTREMITIES: No cyanosis. No clubbing. Tenderness on palpation over the left 3rd, 4th, and 5th digits. No edema. No calf tenderness. SKIN: Warm and dry. Normal capillary refill. No rashes. No jaundice. NEUROLOGICAL: Alert, awake, appropriate. Cranial nerves 2-12 intact. Moving all extremities equally. No gross neurological deficits. <Pura Martinez - Last Filed: 06/01/17 04:53> - Vital Signs Last Vital Signs Temp Pulse Resp BP Pulse Ox 98.2 F 97 H 16 115/72 98 06/01/17 03:26 06/01/17 03:26 06/01/17 03:26 06/01/17 03:26 06/01/17 03:26 <Selvin Roldan - Last Filed: 06/01/17 21:34> Heart Score/ECG Review - ECG Impressions Comment:: 06/01/17 03:55 NSR @91bpm L axis deviation Voltage criteria for L ventricular hypertrophy Nonspecific T wave abnormality Abnormal ECG <Pura Martinez - Last Filed: 06/01/17 04:53> ED Treatment Course - LABORATORY CBC & Chemistry Diagram: 06/01/17 03:44 06/01/17 03:44 - RADIOLOGY Radiograph Interpretation: 06/01/17 04:50 EXAM: CT cervical spine without contrast Reviewed by Imaging nurse receptionist: FINDINGS: The cervical vertebrae are normally . No fracture or destructive bone lesion. Multilevel anterior osteophytosis is noted. There is slight left foraminal narrowing at C5-6 and C6-7 due to left uncovertebral hypertrophy. Although no definite disc abnormalities are identified, CT, especially in patients with large body habitus, are not sensitive for evaluation of degenerative disc disease. If this is suspected MRI should be obtained. 06/01/17 04:53 EXAM: CT brain without contrast Reviewed by Imaging nurse receptionist: FINDINGS: No hemorrhage. No mass. No detectable infarct. No shift or herniation. Osseous structures are intact. <Pura Martinez - Last Filed: 06/01/17 04:53> - LABORATORY CBC & Chemistry Diagram: 06/01/17 03:44 06/01/17 03:44 <eSlvin Roldan - Last Filed: 06/01/17 21:34> Medical Decision Making - Medical Decision Making 06/01/17 21:34 Dr. Roldan: The scribe's documentation has been prepared under my direction and personally reviewed by me in its entirery. I confirm that the note above accurately reflects all work, treatment, procedures, and medical decision making performed by me. <Selvin Roldan - Last Filed: 06/01/17 21:34> *DC/Admit/Observation/Transfer - Attestations Scribe Attestion: 06/01/17 03:45 Documentation prepared by Pura Martinez, acting as outside medical sales representative for Selvin Roldan MD/DO. <Pura Martinez - Last Filed: 06/01/17 04:53> - Discharge Dispostion Admit: No <Selvin Roldan - Last Filed: 06/01/17 21:34> Diagnosis at time of Disposition: Ulnar neuropathy at wrist Qualifiers: Laterality: left Qualified Code(s): G56.22 - Lesion of ulnar nerve, left upper limb Leukocytosis Qualifiers: Leukocytosis type: unspecified Qualified Code(s): D72.829 - Elevated white blood cell count, unspecified Proteinuria Qualifiers: Proteinuria type: other Qualified Code(s): R80.8 - Other proteinuria - Discharge Dispostion Disposition: HOME Condition at time of disposition: Improved - Referrals Referrals: [facility] [Provider Group] - Patient Instructions Printed Discharge Instructions: DI for Leukocytosis Additional Instructions: There was protein found in your urine. Please follow up with your primary care doctor to have this evaluated. There was an elevated white blood cell count, there was no signs of an infection , but please have this rechecked with your primary care doctor within 2-3 days. if you have any fevers, pain, vomiting, or any other concerns, return to the ER or go to your primary care doctor for evaluation immediately. A copy of your blood work is included, please follow up with your doctor for reevaluation. Return if your sypmtoms are worse. Print Language: MACEDON[place]
[2017-06-01] MEDS ORDERED: NITROGLYCERIN 2% OINTMENT - 1GM PACKET TD ONE ×2 (03:32→05:30)
[2017-06-01 03:55] LABS: BASOPHIL 0.6 % (0-2.0); MCH 29.3 pg (25.7-33.7); MCHC 32.3 g/dl (32.0-36.0); MEAN CELL VOLUME 90.5 fl (80-96); MEAN PLT VOLUME 7.9 fl (7.5-11.1); NEUTROPHILS 52.4 % (42.8-82.8); PLATELET COUNT 312 K/MM3 (134-434); RDW 15.2 % (11.6-15.6); WHITE BLOOD COUNT 18.7 K/mm3 (4.0-10.0)
[2017-06-01 04:06] LABS: INR 0.98 (0.82-1.09); PROTHROMBIN TIME (PATIENT) 10.8 SEC (9.98-11.88)
[2017-06-01 04:14] LABS: ANION GAP 8 (8-16); CALCIUM 8.6 mg/dL (8.5-10.1); CO2 23 mmol/L (21-32); CREATININE 1.3 mg/dL (0.55-1.02); GLUCOSE,RANDOM 153 mg/dL (74-106); MAGNESIUM 2.1 mg/dL (1.8-2.4); SGOT/AST 22 U/L (15-37); SGPT/ALT 20 U/L (12-78); TOT PROT 7.7 g/dl (6.4-8.2)
[2017-06-01 04:17] LABS: ALK PHOS 172 U/L (45-117); TROPONIN I < 0.02 ng/ml (0.00-0.05)
[2017-06-01 04:18] LABS: ALBUMIN 0.4 g/dl (3.4-5.0); BILIRUBIN,TOTAL < 0.1 mg/dL (0.2-1.0)
[2017-06-01] MEDS ORDERED: KETOROLAC TROMETHAMINE 30 MG/1 ML VIAL IVPUSH ONE (05:10)
[2017-06-01] MEDS ORDERED: KETOROLAC TROMETHAMINE 30 MG/1 ML VIAL ONE ×2 (05:24→05:27)
[2017-06-01] MEDS ORDERED: KETOROLAC TROMETHAMINE 60 MG/2 ML VIAL IM ONE (05:27)
[2017-06-01] MEDS ORDERED: morphine CARPU-JECT 2 MG/1 ML DISP.SYRIN IVPUSH ONE (06:04)
[2017-06-01] MEDS ORDERED: morphine CARPU-JECT 2 MG/1 ML DISP.SYRIN ONE (06:10)
--- NOTE | 2017-06-01 09:12 | PDOC ---
*Physical Exam - Vital Signs Last Vital Signs Temp Pulse Resp BP Pulse Ox 98.2 F 97 H 16 115/72 98 06/01/17 03:26 06/01/17 03:26 06/01/17 03:26 06/01/17 03:26 06/01/17 03:26 ED Treatment Course - LABORATORY CBC & Chemistry Diagram: 06/01/17 03:44 06/01/17 03:44 - ADDITIONAL ORDERS Additional order review: Laboratory Results 06/01/17 06/01/17 03:44 03:44 INR 0.98 Sodium 139 Potassium 4.6 Chloride 108 H Carbon Dioxide 23 Anion Gap 8 BUN 30 H D Creatinine 1.3 H Creat Clearance w eGFR 41.64 Random Glucose 153 H D Calcium 8.6 Magnesium 2.1 Total Bilirubin < 0.1 L D AST 22 D ALT 20 D Alkaline Phosphatase 172 H Creatine Kinase 121 Troponin I < 0.02 B-Natriuretic Peptide 24.60 Total Protein 7.7 Albumin 0.4 L D 06/01/17 03:44 RBC 3.92 MCV 90.5 MCHC 32.3 RDW 15.2 D MPV 7.9 Neutrophils % 52.4 D Lymphocytes % 41.2 H Monocytes % 3.8 Eosinophils % 2.0 Basophils % 0.6 - Medications Given in the ED: ED Medications Discontinued Medications Generic Name Dose Route Start Last Admin Trade Name Stephanie PRN Reason Stop Dose Admin Ketorolac Tromethamine 30 mg 06/01/17 05:10 06/01/17 05:31 Toradol Injection - IVPUSH 06/01/17 05:11 Not Given ONCE ONE Ketorolac Tromethamine 60 mg 06/01/17 05:27 06/01/17 05:31 Toradol Injection - IM 06/01/17 05:28 Not Given ONCE ONE Morphine Sulfate 2 mg 06/01/17 06:04 06/01/17 06:25 Morphine Injection - IVPUSH 06/01/17 06:05 2 mg ONCE ONE Administration Nitroglycerin 0.5 inch 06/01/17 03:32 06/01/17 05:30 Nitro-Bid 2% Paste - TD 06/01/17 03:33 0.5 inch ONCE ONE Administration Medical Decision Making - Medical Decision Making 06/01/17 09:13 61y F hx of CAD s/p stent (2 weeks ago), HIV (und VRL), htn, dm, glaucoma presents with L hand parasthesias primarily in the 345 digits distal to the wrist, denies any arm proximal to it, including elbow, shoulder, neck pain, chest pain, sob, diaphoresis. Pt denies any recent trauma, or any pressure to the wrist area. The pt is awaiting a secnod trop due to concern it is an anginal equivalent, trop due to 9:30. Pt has cardiology appointment later today at [facility] Pts labs noted for leukocytosis, unclera source, cxr clear, awaiting UA suspect her sypmtoms are due to ulnar radiculapathy 06/01/17 12:01 trop negative no chest pain will dc pt with pmd and cardiology fu I discussed the physical exam findings, ancillary test results and final diagnoses with the patient. I answered all of the patient's questions. The patient was satisfied with the care received and felt comfortable with the discharge plan and treatment plan. The patient will call their primary care physician within 24 hours to arrange follow-up and will return to the Emergency Department with any new, persistent or worsening symptoms. *DC/Admit/Observation/Transfer Diagnosis at time of Disposition: Ulnar neuropathy at wrist Qualifiers: Laterality: left Qualified Code(s): G56.22 - Lesion of ulnar nerve, left upper limb Leukocytosis Qualifiers: Leukocytosis type: unspecified Qualified Code(s): D72.829 - Elevated white blood cell count, unspecified Proteinuria Qualifiers: Proteinuria type: other Qualified Code(s): R80.8 - Other proteinuria - Discharge Dispostion Disposition: HOME Condition at time of disposition: Improved Admit: No - Referrals Referrals: [facility] [Provider Group] - Patient Instructions Printed Discharge Instructions: DI for Leukocytosis Additional Instructions: There was protein found in your urine. Please follow up with your primary care doctor to have this evaluated. There was an elevated white blood cell count, there was no signs of an infection , but please have this rechecked with your primary care doctor within 2-3 days. if you have any fevers, pain, vomiting, or any other concerns, return to the ER or go to your primary care doctor for evaluation immediately. A copy of your blood work is included, please follow up with your doctor for reevaluation. Return if your sypmtoms are worse. Print Language: ESTONIAN - Post Discharge Activity
[2017-06-01] MEDS ORDERED: OXYCODONE/APAP 5/325MG COMBO TABLET PO ONE (09:17)
[2017-06-01] MEDS ORDERED: OXYCODONE/APAP 5/325MG COMBO TABLET ONE (09:19)
[2017-06-01 09:34] LABS: URINE APPEARANCE CLEAR; URINE BILIRUBIN NEGATIVE (NEGATIVE); URINE COLOR COLORLESS; URINE GLUCOSE (UA) 1+ (NEGATIVE); URINE KETONE NEGATIVE (NEGATIVE); URINE LEUK ESTERASE NEGATIVE (NEGATIVE); URINE NITRITE NEGATIVE (NEGATIVE); URINE UROBILINOGEN NEGATIVE mg/dL (0.2-1.0)
[2017-06-01 09:38] LABS: URINE BLOOD 1+ (NEGATIVE); URINE PROTEIN 2+ (NEGATIVE)
[2017-06-01 09:40] LABS: URINE BACTERIA RARE /hpf (NONE SEEN); URINE RBC 3 /hpf (0-3); URINE WBC 1 /hpf (3-5)
[2017-06-01 11:23] LABS: TROPONIN I < 0.02 ng/ml (0.00-0.05)
--- NOTE | 2017-06-01 13:07 | EKG ---
Test Reason : Blood Pressure : / mmHG Vent. Rate : 091 BPM Atrial Rate : 091 BPM P-R Int : 154 ms QRS Dur : 072 ms QT Int : 376 ms P-R-T Axes : 045 -34 026 degrees QTc Int : 462 ms POOR DATA QUALITY, INTERPRETATION MAY BE ADVERSELY AFFECTED NORMAL SINUS RHYTHM LEFT AXIS DEVIATION VOLTAGE CRITERIA FOR LEFT VENTRICULAR HYPERTROPHY NONSPECIFIC T WAVE ABNORMALITY ABNORMAL ECG WHEN COMPARED WITH ECG OF 01-JAN-2017 07:42, NO SIGNIFICANT CHANGE WAS FOUND Confirmed by JADE WALDRON MD ([id number]) on 06/01/2017 1:07:27 PM Referred By: Confirmed By:JADE WALDRON MD
== END 2017-06-01 13:15 | disposition home or self-care (01) ==
LOC: JER 03:11
PROC: 3E033NZ Introduction of Analgesics, Hypnotics, Sedatives into Peripheral Vein, Percutaneous Approach (ICD-10-PCS; principal; 2017-06-01)
DX: G56.32 Lesion of radial nerve, left upper limb (principal); D72.829 Elevated white blood cell count, unspecified; R80.8 Other proteinuria; I25.10 Atherosclerotic heart disease of native coronary artery without angina pectoris; I10 Essential (primary) hypertension; Z95.5 Presence of coronary angioplasty implant and graft; E11.9 Type 2 diabetes mellitus without complications; Z79.4 Long term (current) use of insulin; Z21 Asymptomatic human immunodeficiency virus [HIV] infection status; E07.9 Disorder of thyroid, unspecified; H40.89 Other specified glaucoma
CPT/HCPCS: 36415; 70450-TC; 71010-TC; 72125-TC; 80053; 81003; 81015; 82550; 83735; 83880; 84484; 85025; 85610; 93005; 93010; 99282-25

== ENCOUNTER 2017-08-30 00:15 | Emergency (ER) | payer OTHER ==
--- NOTE | 2017-08-30 00:43 | PDOC ---
History of Present Illness - History of Present Illness Initial Comments: 08/30/17 01:02 The patient is a 61 year old female, with no significant past medical history, who presents to the emergency department with left wrist pain s/p falling onto her left hand this evening. She denies numbness or tingling to her hand or fingers. She denies chest pain, shortness of breath, headache and dizziness. She denies fever, chills, nausea, vomit, diarrhea and constipation. She denies dysuria, frequency, urgency and hematuria. Allergies: amoxicillin <Danica Sierra - Last Filed: 08/30/17 02:02> <Elizabeth Baires - Last Filed: 08/30/17 02:14> - General Stated Complaint: INJURY TO LEFT WRIST Time Seen by Provider: 08/30/17 00:40 Past History <Danica Sierra - Last Filed: 08/30/17 02:02> - Past Medical History Diabetes: Yes HTN: Yes Thyroid Disease: Yes - Surgical History Abdominal Surgery: Yes Appendectomy: Yes - Immunization History Immunization Up to Date: Yes - Suicide/Smoking/Psychosocial Hx Smoking Status: No Smoking History: Never smoked Have you smoked in the past 12 months: No Number of Cigarettes Smoked Daily: 0 If you are a former smoker, when did you quit?: 0 Hx Alcohol Use: No Drug/Substance Use Hx: No Substance Use Type: None <Elizabeth Baires - Last Filed: 08/30/17 02:14> - Past Medical History Allergies/Adverse Reactions: Allergies Allergy/AdvReac Type Severity Reaction Status Date / Time amoxicillin Allergy Verified 08/30/17 00:49 metronidazole [From Flagyl] Allergy Verified 08/30/17 00:49 Home Medications: Ambulatory Orders Aspirin [ASA -] 81 mg PO DAILY 12/18/15 Efavirenz/Emtricitab/Tenofovir [Atripla Tablet -] 1 tab PO DAILY 12/18/15 Hydrochlorothiazide 25 mg PO DAILY 12/18/15 Insulin Aspart [Novolog Flexpen] 10 unit SQ TID 12/18/15 Insulin Glargine,Hum.rec.anlog [Lantus Solostar PEN -] 45 units SQ HS 12/18/15 Ziprasidone HCl [Geodon] 40 mg PO DAILY 01/06/16 Cyclobenzaprine HCl [Flexeril 10 mg] 10 mg PO BID PRN #20 tablet 03/26/17 Lisinopril [Prinivil] 20 mg PO DAILY 06/01/17 Review of Systems - Review of Systems Able to Perform ROS?: Yes Comments:: 08/30/17 01:01 CONSTITUTIONAL: Absent: fever, no chills, no fatigue EYES: Absent: visual changes ENT: Absent: ear pain, no sore throat CARDIOVASCULAR: Absent: chest pain, no palpitations RESPIRATORY: Absent: cough, no SOB GI: Absent: abdominal pain, no nausea, no vomiting, no constipation, no diarrhea GENITOURINARY: Absent: dysuria, no frequency, no hematuria MUSCULOSKELETAL: (+) left wrist pain. Absent: back pain, no myalgia SKIN: Absent: rash NEURO: Absent: headache <Danica Sierra - Last Filed: 08/30/17 02:02> *Physical Exam - Vital Signs Last Vital Signs Temp Pulse Resp BP Pulse Ox 97.5 F L 78 20 142/83 98 08/30/17 00:49 08/30/17 00:49 08/30/17 00:49 08/30/17 00:49 08/30/17 00:49 - Physical Exam Comments: 08/30/17 01:02 GENERAL: Well-appearing, well-nourished. No apparent distress. HEENT: Normocephalic, atraumatic. PERRL, EOM intact. CARDIOVASCULAR: Normal S1, S2. Regular rate and rhythm. PULMONARY: Clear to auscultation bilaterally. ABDOMEN: Soft, non-distended, non-tender. EXTREMITIES: (+) left wrist is mildly ttp with normal ROM. Normal ROM in all four extremities. No gross deformities. SKIN: Warm, dry. No rash NEUROLOGICAL: No focal neurological deficits. <Danica Sierra - Last Filed: 08/30/17 02:02> ED Treatment Course - RADIOLOGY Radiograph Interpretation: 08/30/17 02:02 Preliminary read of left wrist and forearm xrays by Dr. Baires reveal no evidence of obvious fractures or abnormalities. The patient has been placed in an ANDREIA wrap. <Danica Sierra - Last Filed: 08/30/17 02:02> Medical Decision Making - Medical Decision Making 08/30/17 00:45 61-year-old female presents with left wrist pain. She states that she fell onto her wrist earlier today. The left wrist is neurovascularly intact with radial and ulnar pulses. Sensation and proprioception is intact. Cap refill is less than 2 seconds. And radiographs of left wrist <Elizabeth Baires - Last Filed: 08/30/17 02:14> *DC/Admit/Observation/Transfer - Attestations Scribe Attestion: 08/30/17 01:04 Documentation prepared by Danica Sierra, acting as medical office secretary for Elizabeth Baires MD <Danica Sierra - Last Filed: 08/30/17 02:02> <Elizabeth Baires - Last Filed: 08/30/17 02:14> Diagnosis at time of Disposition: Sprain of left wrist Qualifiers: Encounter type: initial encounter Qualified Code(s): S63.502A - Unspecified sprain of left wrist, initial encounter; S63.502A - Unspecified sprain of left wrist, initial encounter - Discharge Dispostion Disposition: HOME Condition at time of disposition: Stable - Referrals Referrals: Reinier Torres MD [Staff Physician] - - Patient Instructions Printed Discharge Instructions: DI for Wrist Sprain Additional Instructions: please take tylenol or OTC mediation for pain See the orthopedist if your symptoms do not get better in a couple days
[2017-08-30 00:56] VITALS: BP 142/83; PULSE 78; TEMP 97.5; BMI 34.0
== END 2017-08-30 02:19 | disposition home or self-care (01) ==
LOC: JER 00:15
DX: S63.502A Unspecified sprain of left wrist, initial encounter (principal); W18.39XA Other fall on same level, initial encounter; Y93.89 Activity, other specified; Y92.9 Unspecified place or not applicable; E11.9 Type 2 diabetes mellitus without complications; I10 Essential (primary) hypertension; E07.9 Disorder of thyroid, unspecified
CPT/HCPCS: 73090-TC-LT; 73110-TC-LT; 99281-25

== ENCOUNTER 2017-12-21 21:30 | Inpatient (IN) | payer OTHER ==
--- NOTE | 2017-12-21 22:15 | PDOC ---
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 Chest pain is different than prior anginal pain. No alleviators or identifiable triggers. Denies F/C, N/V, SOB, Paulino, cough, abdominal pain, diarrhea, constipation, urinary complaints, lightheadedness, vertigo, weakness, sensory changes. Pt. reports last stress test 07/2017- wnl. Denies h/o CABG. Does not recall last CD4 count. Past History - Past Medical History Allergies/Adverse Reactions: Allergies Allergy/AdvReac Type Severity Reaction Status Date / Time amoxicillin Allergy Verified 12/21/17 21:33 metronidazole [From Flagyl] Allergy Verified 12/21/17 21:33 Home Medications: Ambulatory Orders Aspirin [ASA -] 81 mg PO DAILY 12/18/15 Efavirenz/Emtricitab/Tenofovir [Atripla Tablet -] 1 tab PO DAILY 12/18/15 Hydrochlorothiazide 25 mg PO DAILY 12/18/15 Insulin Glargine,Hum.rec.anlog [Lantus Solostar PEN -] 45 units SQ HS 12/18/15 Ziprasidone HCl [Geodon] 40 mg PO DAILY 01/06/16 Lisinopril [Prinivil] 20 mg PO DAILY 06/01/17 Cardiac Disorders: Yes COPD: No Diabetes: Yes HTN: Yes Thyroid Disease: Yes - Surgical History Abdominal Surgery: Yes Appendectomy: Yes Cardiac Surgery: Yes - Immunization History Immunization Up to Date: Yes - Suicide/Smoking/Psychosocial Hx Smoking Status: No Smoking History: Never smoked Have you smoked in the past 12 months: No Number of Cigarettes Smoked Daily: 0 If you are a former smoker, when did you quit?: 0 Information on smoking cessation initiated: No Hx Alcohol Use: No Drug/Substance Use Hx: No Substance Use Type: None Review of Systems - Review of Systems Comments:: 12/21/17 22:15 GENERAL/CONSTITUTIONAL: No fever or chills. No weakness. HEAD, EYES, EARS, NOSE AND THROAT: No change in vision. No ear pain or discharge. No sore throat.- CARDIOVASCULAR: + chest pain.No shortness of breath RESPIRATORY: No cough, wheezing, or hemoptysis. GASTROINTESTINAL: No nausea, vomiting, diarrhea or constipation. GENITOURINARY: No dysuria, frequency, or change in urination. MUSCULOSKELETAL: No joint or muscle swelling or pain. No neck or back pain. SKIN: No rash NEUROLOGIC: No headache, vertigo, loss of consciousness, or change in strength/ sensation. ENDOCRINE: No increased thirst. No abnormal weight change HEMATOLOGIC/LYMPHATIC: No anemia, easy bleeding, or history of blood clots. ALLERGIC/IMMUNOLOGIC: No hives or skin allergy. *Physical Exam - Vital Signs Last Vital Signs Temp Pulse Resp BP Pulse Ox 97.6 F 102 H 20 130/71 95 12/21/17 21:33 12/21/17 21:33 12/21/17 21:33 12/21/17 21:33 12/21/17 21:33 - Physical Exam Comments: 12/21/17 22:15 GENERAL: Awake, alert, and fully oriented, in no acute distress HEAD: No signs of trauma, normocephalic, atraumatic EYES: PERRLA, EOMI, sclera anicteric, conjunctiva clear ENT: Hearing grossly normal, nares patent, oropharynx clear without exudates. Moist mucosa NECK: Normal ROM, supple, no lymphadenopathy, JVD, or masses LUNGS: No distress, speaks full sentences, clear to auscultation bilaterally HEART: Chest wall ttp at 2-3rd intercostal space at inframammary line. Regular rate and rhythm, normal S1 and S2, no murmurs, rubs or gallops, peripheral pulses normal and equal bilaterally. ABDOMEN: LUQ ttp. Soft, normoactive bowel sounds. No guarding, no rebound. No masses. Neg CVA ttp. Neg suprapubic ttp. EXTREMITIES : Normal inspection, Normal range of motion, no edema. No clubbing or cyanosis. SKIN: Warm, Dry, normal turgor, no rashes or lesions noted. 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 Chest pain different than prior anginal pain. No alleviators or identifiable triggers. Denies F/C, N/V, SOB, palpitations, diaphoresis, Paulino, cough, abdominal pain, diarrhea, constipation, urinary complaints, lightheadedness, vertigo, weakness, sensory changes. Pt. reports last stress test 07/2017- wnl. Denies h/o CABG. Does not recall last CD4 count. Physical exam unremarkable and pt. hemodynamically stable. Chest pain reproducible at 2-3rd intercostal space at inframammary line. Will perform ACS/ND r/o given significant comorbidities and risk factors. Will also assess for PNA. Dr. Esparza Software Test Manager. DDx: Costochondirits, esophagitis, gastritis, ACS/ND, PNA ED Course: CBC, CMP, Lipase, cardiac profile EKG, CXR UA ASA 325 mg 12/21/17 22:41 EKG: NSR with absent TWI ,STD, or ANETA. Normal interval duration. LVH. 12/21/17 22:45 *DC/Admit/Observation/Transfer - Referrals - Patient Instructions Additional Instructions: Please return to the emergency department with any new or worsening symptoms or concerns. Please follow up with your board mill supervisor within the next 24-72 hours. - Post Discharge Activity - Attestations Physician Attestion: 12/21/17 23:22 I attest to the documentation provided in this note.
[2017-12-21] MEDS ORDERED: ASPIRIN 325 MG ENTERIC COATED TABLET (FP) PO ONE (22:41)
--- NOTE | 2017-12-21 22:49 | PDOC ---
Attending Attestation - HPI HPI: 12/21/17 22:50 The patient is a 62 year old female with past medical history of hypertension, hyperlipidemia, HIV, CAD s/p stent 05/16, and morbid obesity who presents to the ED with complaints of sudden onset left sided chest pain that began 1 hour ago. She describes the pain as sharp, stabbing, spasmodic and is present underneath her left breast. She denies taking anything for her pain and coming straight to the emergency department. The patient denies any similar symptoms in the past. She denies any associated diaphoresis, lightheadedness, shortness of breath. She denies any fever or chills. Last stress test was 07/2017 which was normal. She states this pain is very different from the time she needed a stent. Customer Management Specialist: Dr. Esparza Documentation prepared by Jennifer Sotomayor, acting as medical practice administrator for Christin Carl DO. - Physicial Exam PE: 12/21/17 22:51 GENERAL: Awake, alert, and fully oriented, in no acute distress HEAD: No signs of trauma EYES: PERRLA, EOMI, sclera anicteric, conjunctiva clear ENT: Auricles normal inspection, hearing grossly normal, nares patent, oropharynx clear without exudates. Moist mucosa NECK: Normal ROM, supple, no lymphadenopathy, JVD, or masses LUNGS: Breath sounds equal, clear to auscultation bilaterally. No wheezes, and no crackles HEART: Tednerness to palpation under left breast. Regular rate and rhythm, normal S1 and S2, no murmurs, rubs or gallops ABDOMEN: Soft, nontender, normoactive bowel sounds. No guarding, no rebound. No masses EXTREMITIES: Normal range of motion, no edema. No clubbing or cyanosis. No cords, erythema, or tenderness NEUROLOGICAL: Cranial nerves II through XII grossly intact. Normal speech, normal gait SKIN: Warm, Dry, normal turgor, no rashes or lesions noted. <Jennifer Sotomayor - Last Filed: 12/21/17 22:50> - Resident Resident Name: Anurag Vargas - ED Attending Attestation I have performed the following: I have examined & evaluated the patient, The case was reviewed & discussed with the resident, I agree w/resident's findings & plan, Exceptions are as noted - Medical Decision Making 12/21/17 22:46 I, Dr. Christin Carl, DO, attest that this document has been prepared under my direction and personally reviewed by me in its entirety. I further attest, that it accurately reflects all work, treatment, procedures and medical decision -making performed by me. 12/21/17 22:46 a/p: 62yo female with Sharp L sided cp that is reproducible -pain under L breast no rashes no sob no abd pain no n/v/d no diaphoresis different than when she needed a stent will check labs including cardiac enzyme - though low suspicion for ACS given reproducibilty of pain will consult with Dr. Esparza 12/22/17 01:[address] Viki Phelan - accepts pt under Dr. Rhoda Phelan will place consult to Dr. Esparza pt with elevated lipase no gallstones on ultrasound - prelim read ivf hydration running elevated WBC will monitor on obs 12/22/17 01:42 pt agreeable to stay for further eval <Christin Carl - Last Filed: 12/22/17 01:42> Discharge Disposition <Jennifer Sotomayor - Last Filed: 12/21/17 22:50> - Discharge Dispostion Last Admission D/C Date: 07/14/09 Admit: Yes <Christin Carl - Last Filed: 12/22/17 01:42> - Diagnosis Chest pain, Pancreatitis - Discharge Dispostion Condition at time of disposition: Fair - Referrals Referrals: Rhoda Phelan [Primary Care Provider] - - Patient Instructions Additional Instructions: Please return to the emergency department with any new or worsening symptoms or concerns. Please follow up with your reference library assistant within the next 24-72 hours. - Post Discharge Activity Heart Score/ECG Review - ECG Intrepretation Comment:: 12/21/17 22:48 sinus at 93, nl axis, nl interval, lvh, no acute st/t wave findings <Christin Carl - Last Filed: 12/22/17 01:42>
[2017-12-21] MEDS ORDERED: ASPIRIN 325 MG ENTERIC COATED TABLET (FP) ONE (23:00)
[2017-12-21 23:11] LABS: HEMATOCRIT 35.2 % (32.4-45.2); HEMOGLOBIN 11.7 GM/dL (10.7-15.3); MCH 30.6 pg (25.7-33.7); MCHC 33.1 g/dl (32.0-36.0); MEAN CELL VOLUME 92.5 fl (80-96); MEAN PLT VOLUME 8.5 fl (7.5-11.1); PLATELET COUNT 309 K/MM3 (134-434); RBC 3.81 M/mm3 (3.60-5.2); RDW 13.9 % (11.6-15.6); WHITE BLOOD COUNT 21.2 K/mm3 (4.0-10.0)
[2017-12-21 23:22] LABS: INR 1.07 (0.82-1.09); PROTHROMBIN TIME (PATIENT) 12.1 SEC (9.98-11.88)
[2017-12-21 23:34] LABS: URINE APPEARANCE CLEAR; URINE BILIRUBIN NEGATIVE (NEGATIVE); URINE BLOOD 1+ (NEGATIVE); URINE COLOR COLORLESS; URINE GLUCOSE (UA) NEGATIVE (NEGATIVE); URINE KETONE NEGATIVE (NEGATIVE); URINE LEUK ESTERASE TRACE (NEGATIVE); URINE NITRITE NEGATIVE (NEGATIVE); URINE UROBILINOGEN NEGATIVE mg/dL (0.2-1.0)
[2017-12-21 23:36] LABS: ALBUMIN 3.5 g/dl (3.4-5.0); ANION GAP 7 (8-16); BLOOD UREA NITROGEN 28 mg/dL (7-18); CALCIUM 9.2 mg/dL (8.5-10.1); CHLORIDE 108 mmol/L (98-107); CO2 27 mmol/L (21-32); GLUCOSE,RANDOM 64 mg/dL (74-106); SGPT/ALT 17 U/L (12-78); SODIUM 142 mmol/L (136-145)
[2017-12-21 23:39] LABS: ALK PHOS 167 U/L (45-117); BILIRUBIN,TOTAL 0.3 mg/dL (0.2-1.0); CREATININE 1.4 mg/dL (0.55-1.02); SGOT/AST 17 U/L (15-37)
[2017-12-21 23:41] LABS: URINE PROTEIN 2+ (NEGATIVE)
[2017-12-21 23:43] LABS: EPI CELLS RARE /HPF (FEW); URINE BACTERIA RARE /hpf (NONE SEEN)
--- NOTE | 2017-12-22 00:28 | PDOC ---
*Physical Exam - Vital Signs Last Vital Signs Temp Pulse Resp BP Pulse Ox 97.6 F 102 H 20 130/71 95 12/21/17 21:33 12/21/17 21:33 12/21/17 21:33 12/21/17 21:33 12/21/17 21:33 ED Treatment Course - LABORATORY CBC & Chemistry Diagram: 12/21/17 22:52 12/21/17 22:52 - ADDITIONAL ORDERS Additional order review: Laboratory Results 12/21/17 12/21/17 12/21/17 23:27 22:57 22:52 PT with INR INR Sodium 142 Potassium 4.0 Chloride 108 H Carbon Dioxide 27 Anion Gap 7 L BUN 28 H Creatinine 1.4 H Creat Clearance w eGFR 38.10 Random Glucose 64 L Calcium 9.2 Total Bilirubin 0.3 D AST 17 ALT 17 Alkaline Phosphatase 167 H Creatine Kinase 233 H Creatine Kinase Index 1.6 CK-MB (CK-2) 3.879 H Troponin I 0.02 Total Protein 8.0 Albumin 3.5 Lipase 496 H Urine Color Colorless Urine Appearance Clear Urine pH 7.0 Ur Specific [place] 1.004 Urine Protein 2+ H Urine Glucose (UA) Negative Urine Ketones Negative Urine Blood 1+ H Urine Nitrite Negative Urine Bilirubin Negative Urine Urobilinogen Negative Ur Leukocyte Esterase Trace Urine WBC (Auto) 3 Urine RBC (Auto) 8 Ur Epithelial Cells Rare Urine Bacteria Rare 12/21/17 22:52 PT with INR 12.10 H INR 1.07 Sodium Potassium Chloride Carbon Dioxide Anion Gap BUN Creatinine Creat Clearance w eGFR Random Glucose Calcium Total Bilirubin AST ALT Alkaline Phosphatase Creatine Kinase Creatine Kinase Index CK-MB (CK-2) Troponin I Total Protein Albumin Lipase Urine Color Urine Appearance Urine pH Ur Specific [place] Urine Protein Urine Glucose (UA) Urine Ketones Urine Blood Urine Nitrite Urine Bilirubin Urine Urobilinogen Ur Leukocyte Esterase Urine WBC (Auto) Urine RBC (Auto) Ur Epithelial Cells Urine Bacteria 12/21/17 22:52 RBC 3.81 MCV 92.5 MCHC 33.1 RDW 13.9 MPV 8.5 Neutrophils % No Result Required. Lymphocytes % No Result Required. - Medications Given in the ED: ED Medications Discontinued Medications Generic Name Dose Route Start Last Admin Trade Name Freq PRN Reason Stop Dose Admin Aspirin 325 mg 12/21/17 22:41 12/21/17 23:10 Ecotrin - PO 12/21/17 22:42 325 mg ONCE ONE Administration Medical Decision Making - Medical Decision Making 12/22/17 00:26 Pt signed out to me by ivelisse Garcia team. 62F with a PMH HTN, HLD, CAD s/p stent placement in 04/2017 who presents with CP. ACS r/o. Pending repeat trop at 0200 and d/c if negative. 12/22/17 01:41 Attending admitted pt to Dr. Phelan. US negative. *DC/Admit/Observation/Transfer Diagnosis at time of Disposition: Chest pain, Pancreatitis - Discharge Dispostion Condition at time of disposition: Fair - Referrals Referrals: Rhoda Phelan [Primary Care Provider] - - Patient Instructions Additional Instructions: Please return to the emergency department with any new or worsening symptoms or concerns. Please follow up with your food safety auditor within the next 24-72 hours. - Post Discharge Activity
[2017-12-22] MEDS ORDERED: SODIUM CHLORIDE 0.9% 1000 ML INFUS.BAG IV ONE (00:38)
[2017-12-22 04:16] VITALS: BMI 34.4
--- NOTE | 2017-12-22 06:54 | HP ---
Admitting History and Physical - Primary Care Physician PCP: Cesar Phelan - Admission Chief Complaint: CP History of Present Illness: Pt developed left sided CP last night while washing dishes, lasted for one hour ; CP is described as stabbing, no radiation, not associated with SOB/ palpitations/ dizziness. Pt was a HX/o CAD, s/p PCI and stenting ( triggered by GANNON) at [facility]. History Source: Patient - Past Medical History Cardiovascular: Yes: CAD (with stent), HTN, Hyperlipdemia ...: No Infectious Disease: Yes: HIV Endocrine: Yes: Diabetes Mellitus (on insulin) - Past Surgical History Past Surgical History: Yes: Appendectomy (complicated- per pt) - Smoking History Smoking history: Former smoker Have you smoked in the past 12 months: No Aproximately how many cigarettes per day: 0 If you are a former smoker, when did you quit?: 40 YRS AGO - Alcohol/Substance Use Hx Alcohol Use: No - Social History ADL: Independent History of Recent Travel: No Home Medications - Allergies Allergies/Adverse Reactions: Allergies Allergy/AdvReac Type Severity Reaction Status Date / Time amoxicillin Allergy Verified 12/21/17 21:33 metronidazole [From Flagyl] Allergy Verified 12/21/17 21:33 - Home Medications Home Medications: Ambulatory Orders Aspirin [ASA -] 81 mg PO DAILY 12/18/15 Efavirenz/Emtricitab/Tenofovir [Atripla Tablet -] 1 tab PO DAILY 12/18/15 Hydrochlorothiazide 25 mg PO DAILY 12/18/15 Insulin Glargine,Hum.rec.anlog [Lantus Solostar PEN -] 45 units SQ HS 12/18/15 Ziprasidone HCl [Geodon] 40 mg PO DAILY 01/06/16 Lisinopril [Prinivil] 20 mg PO DAILY 06/01/17 Family Disease History - Family Disease History Family Disease History: Heart Disease: Mother Review of Systems - Review of Systems Constitutional: denies: Chills, Fever Eyes: denies: Blurred Vision, Eye Pain, Recent Change in Vision HENT: denies: Ear Discharge, Ear Pain, Nasal Congestion, Throat Pain Neck: denies: Pain on Movement, Stiffness, Tenderness Cardiovascular: denies: Chest Pain (now), Edema, Palpitations Respiratory: denies: Cough, SOB, Wheezing Gastrointestinal: denies: Abdominal Pain, Diarrhea, Nausea, Vomiting Genitourinary: denies: Burning, Discharge, Dysuria Musculoskeletal: denies: Back Pain, Extremity Pain Integumentary: denies: Eczema, Rash Neurological: denies: Change in LOC, Change in Speech, Numbness, Unsteady Gait, Weakness Endocrine: denies: Excessive Sweating, Intolerance to Cold Psychiatric: denies: Anxiety, Depression Physical Examination Vital Signs: Vital Signs Temperature 98.3 F 12/22/17 06:00 Pulse Rate 84 12/22/17 06:00 Respiratory Rate 18 12/22/17 06:00 Blood Pressure 128/76 12/22/17 06:00 O2 Sat by Pulse Oximetry (%) 98 12/22/17 03:55 Constitutional: Yes: No Distress, Calm Eyes: Yes: Conjunctiva Clear, EOM Intact HENT: Yes: Normocephalic. No: Pharyngeal Erythema, Rhinnorhea Neck: Yes: Trachea Midline. No: Lymphadenopathy, Tenderness Cardiovascular: Yes: Regular Rate and Rhythm, S1, S2 Respiratory: Yes: Regular, CTA Bilaterally. No: Rales Gastrointestinal: Yes: Normal Bowel Sounds, Soft, Abdomen, Obese, Tenderness, Epigastrium ...Rectal Exam: Yes: Deferred Renal/: No: CVA Tenderness - Left, CVA Tenderness - Right Breast(s): Yes: Other (deferred) Musculoskeletal: No: Joint Stiffness, Joint Swelling Edema: No Neurological: Yes: Alert, Oriented, Other (motor and sensory is symmetreri in UE / LE/ face) Psychiatric: Yes: Alert, Oriented Labs: CBC, BMP 12/21/17 22:52 12/21/17 22:52 Imaging - Results Chest X-ray: Report Reviewed Ultrasound: Pending Problem List - Problems (1) Chest pain Code(s): R07.9 - CHEST PAIN, UNSPECIFIED (2) Pancreatitis Assessment/Plan: probable, mild case NPO untill seen by GI. 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 Cardio consult ASA Probable mild case of pancreatitis; repeat labs today in AM; hold HIV meds GI consult ID consult AM labs Case was d/w pt's nurse.
[2017-12-22] MEDS ORDERED: SODIUM CHLORIDE 1,000 ML IV SCH (07:15)
[2017-12-22 08:42] LABS: AMYLASE 156 U/L (25-115); ANION GAP 7 (8-16); BILIRUBIN,TOTAL 0.4 mg/dL (0.2-1.0); BLOOD UREA NITROGEN 22 mg/dL (7-18); CALCIUM 8.3 mg/dL (8.5-10.1); CHLORIDE 110 mmol/L (98-107); CO2 23 mmol/L (21-32); CREATININE 1.1 mg/dL (0.55-1.02); GLUCOSE,RANDOM 119 mg/dL (74-106); SGOT/AST 16 U/L (15-37); SGPT/ALT 15 U/L (12-78); SODIUM 140 mmol/L (136-145)
[2017-12-22 08:43] LABS: ALK PHOS 156 U/L (45-117); HEMATOCRIT 34.5 % (32.4-45.2); HEMOGLOBIN 11.1 GM/dL (10.7-15.3); MCH 29.9 pg (25.7-33.7); MCHC 32.1 g/dl (32.0-36.0); MEAN CELL VOLUME 93.3 fl (80-96); MEAN PLT VOLUME 8.3 fl (7.5-11.1); PLATELET COUNT 285 K/MM3 (134-434); RBC 3.69 M/mm3 (3.60-5.2); RDW 13.9 % (11.6-15.6); WHITE BLOOD COUNT 13.1 K/mm3 (4.0-10.0)
[2017-12-22 08:59] LABS: LIPASE 264 U/L (73-393)
--- NOTE | 2017-12-22 10:02 | EKG ---
Test Reason : Blood Pressure : / mmHG Vent. Rate : 093 BPM Atrial Rate : 093 BPM P-R Int : 142 ms QRS Dur : 076 ms QT Int : 368 ms P-R-T Axes : 052 -25 064 degrees QTc Int : 457 ms POOR DATA QUALITY, INTERPRETATION MAY BE ADVERSELY AFFECTED NORMAL SINUS RHYTHM MODERATE VOLTAGE CRITERIA FOR LVH, MAY BE NORMAL VARIANT WHEN COMPARED WITH ECG OF 01-JUN-2017 03:40, NO SIGNIFICANT CHANGE WAS FOUND Confirmed by WENDIE HENAO MD ([id number]) on 12/22/2017 10:01:39 AM Referred By: Confirmed By:WENDIE HENAO MD
--- NOTE | 2017-12-22 10:18 | CON.GI ---
Consult Consult Specialty:: GI Reason for Consultation:: r/o pancreatitis - History of Present Illness History of Present Illness: A 62 yof with cardiac history admitted last night with severe left, lower, anterio-lateral, chest pain of acute onset while washing dishes at home. Denies associated nausea, vomiting, diarrhea, shortness of breath, palpitations, dizziness, or chest tightness. No prior episodes of the same. Denies recent trauma to the area. Denies chronic gastrointestinal issues. Denies weight loss, dysphagia, odynophagia, dyspepesia, chronic alcohol, or NSAIDs use. No significant family history. Screening colonoscopy was done 1 year ago, small polyps were found, per patent. Repeat in 3 y recommended. On admission noted to have leukocytosis, mild lipase, amylase, ALP, BUN, Cr elevation, normal AST, ALT , bilirubin. At the time of this encounter, the patient is not in distress, pain, or discomfort, ambulating. Reports mild pain and tenderness at the same location. - History Source History Provided By: Patient - Past Medical History Cardio/Vascular: Yes: CAD (with stent), HTN, Hyperlipdemia ...: No Infectious Disease: Yes: HIV Endocrine: Yes: Diabetes Mellitus (on insulin) - Past Surgical History Past Surgical History: Yes: Appendectomy (complicated- per pt) - Alcohol/Substance Use Hx Alcohol Use: No - Smoking History Smoking history: Former smoker Have you smoked in the past 12 months: No Aproximately how many cigarettes per day: 0 If you are a former smoker, when did you quit?: 40 YRS AGO - Social History ADL: Independent History of Recent Travel: No Home Medications - Allergies Allergies/Adverse Reactions: Allergies Allergy/AdvReac Type Severity Reaction Status Date / Time amoxicillin Allergy Verified 12/21/17 21:33 metronidazole [From Flagyl] Allergy Verified 12/21/17 21:33 - Home Medications Home Medications: Ambulatory Orders Aspirin [ASA -] 81 mg PO DAILY 12/18/15 Efavirenz/Emtricitab/Tenofovir [Atripla Tablet -] 1 tab PO DAILY 12/18/15 Hydrochlorothiazide 25 mg PO DAILY 12/18/15 Insulin Glargine,Hum.rec.anlog [Lantus Solostar PEN -] 45 units SQ HS 12/18/15 Ziprasidone HCl [Geodon] 40 mg PO DAILY 01/06/16 Lisinopril [Prinivil] 20 mg PO DAILY 06/01/17 Family Disease History - Family Disease History Family Disease History: Heart Disease: Mother Review of Systems Findings/Remarks: as per HPI, H&P Physical Exam-GI Vital Signs: Vital Signs Temperature 98.3 F 12/22/17 06:00 Pulse Rate 84 12/22/17 06:00 Respiratory Rate 18 12/22/17 06:00 Blood Pressure 128/76 12/22/17 06:00 O2 Sat by Pulse Oximetry (%) 98 12/22/17 03:55 Constitutional: Yes: Well Nourished, No Distress, Calm Eyes: Yes: Conjunctiva Clear HENT: Yes: Other (poor dental state) Neck: Yes: WNL Cardiovascular: Yes: WNL Respiratory: Yes: Regular, Other (LL anterolateral tenderness on palpation) Gastrointestinal Inspection: No: Ascites, Distention ...Auscultate: Yes: Normoactive Bowel Sounds ...Palpate: No: Firm/Rigid, Guarding, Pulsatile Mass, Soft, Tenderness, Tenderness, Epigastium, Tenderness, Rebound Neurological: Yes: Alert, Oriented Labs: CBC, BMP 12/22/17 07:50 12/22/17 07:50 INR, PTT INR 1.07 (0.82-1.09) 12/21/17 22:52 Laboratory Tests 12/21/17 12/21/17 12/21/17 22:52 22:52 22:52 WBC 21.2 H RBC 3.81 Hgb 11.7 Hct 35.2 MCV 92.5 MCH 30.6 MCHC 33.1 RDW 13.9 Plt Count 309 MPV 8.5 Neutrophils % No Result Required. Neutrophils % (Manual) 40.3 L Band Neutrophils % 1.8 Lymphocytes % No Result Required. Lymphocytes % (Manual) 53.5 H Monocytes % (Manual) 3 L Eosinophils % (Manual) 0.9 Basophils % (Manual) 0.0 Myelocytes % (Man) 0 Promyelocytes % (Man) 0 Nucleated RBC % 0 Metamyelocytes 0 PT with INR 12.10 H INR 1.07 Sodium 142 Potassium 4.0 Chloride 108 H Carbon Dioxide 27 Anion Gap 7 L BUN 28 H Creatinine 1.4 H Creat Clearance w eGFR 38.10 POC Glucometer Random Glucose 64 L Calcium 9.2 Total Bilirubin 0.3 D AST 17 ALT 17 Alkaline Phosphatase 167 H Creatine Kinase Creatine Kinase Index CK-MB (CK-2) Troponin I Total Protein 8.0 Albumin 3.5 Total Amylase Lipase Urine Color Urine Appearance Urine pH Ur Specific [place] Urine Protein Urine Glucose (UA) Urine Ketones Urine Blood Urine Nitrite Urine Bilirubin Urine Urobilinogen Ur Leukocyte Esterase Urine WBC (Auto) Urine RBC (Auto) Ur Epithelial Cells Urine Bacteria 12/21/17 12/21/17 12/22/17 22:57 23:27 01:59 WBC RBC Hgb Hct MCV MCH MCHC RDW Plt Count MPV Neutrophils % Neutrophils % (Manual) Band Neutrophils % Lymphocytes % Lymphocytes % (Manual) Monocytes % (Manual) Eosinophils % (Manual) Basophils % (Manual) Myelocytes % (Man) Promyelocytes % (Man) Nucleated RBC % Metamyelocytes PT with INR INR Sodium Potassium Chloride Carbon Dioxide Anion Gap BUN Creatinine Creat Clearance w eGFR POC Glucometer Random Glucose Calcium Total Bilirubin AST ALT Alkaline Phosphatase Creatine Kinase 233 H 227 H Creatine Kinase Index 1.6 1.4 CK-MB (CK-2) 3.879 H 3.356 Troponin I 0.02 0.02 Total Protein Albumin Total Amylase Lipase 496 H Urine Color Colorless Urine Appearance Clear Urine pH 7.0 Ur Specific [place] 1.004 Urine Protein 2+ H Urine Glucose (UA) Negative Urine Ketones Negative Urine Blood 1+ H Urine Nitrite Negative Urine Bilirubin Negative Urine Urobilinogen Negative Ur Leukocyte Esterase Trace Urine WBC (Auto) 3 Urine RBC (Auto) 8 Ur Epithelial Cells Rare Urine Bacteria Rare 12/22/17 12/22/17 12/22/17 07:50 07:50 11:27 WBC 13.1 H D RBC 3.69 Hgb 11.1 Hct 34.5 MCV 93.3 MCH 29.9 MCHC 32.1 RDW 13.9 Plt Count 285 MPV 8.3 Neutrophils % Neutrophils % (Manual) Band Neutrophils % Lymphocytes % Lymphocytes % (Manual) Monocytes % (Manual) Eosinophils % (Manual) Basophils % (Manual) Myelocytes % (Man) Promyelocytes % (Man) Nucleated RBC % Metamyelocytes PT with INR INR Sodium 140 Potassium 4.0 Chloride 110 H Carbon Dioxide 23 Anion Gap 7 L BUN 22 H Creatinine 1.1 H Creat Clearance w eGFR 50.33 POC Glucometer 164 Random Glucose 119 H Calcium 8.3 L Total Bilirubin 0.4 D AST 16 ALT 15 Alkaline Phosphatase 156 H Creatine Kinase Creatine Kinase Index CK-MB (CK-2) Troponin I Total Protein 7.0 Albumin 3.0 L Total Amylase 156 H Lipase 264 Urine Color Urine Appearance Urine pH Ur Specific [place] Urine Protein Urine Glucose (UA) Urine Ketones Urine Blood Urine Nitrite Urine Bilirubin Urine Urobilinogen Ur Leukocyte Esterase Urine WBC (Auto) Urine RBC (Auto) Ur Epithelial Cells Urine Bacteria Imaging - Results X-ray: Report Reviewed Ultrasound: Report Reviewed Problem List - Problems (1) Costochondritis, acute Code(s): M94.0 - CHONDROCOSTAL JUNCTION SYNDROME [TIETZE] (2) Pancreatitis Code(s): K85.90 - ACUTE PANCREATITIS WITHOUT NECROSIS OR INFECTION, UNSP (3) HIV disease Code(s): B20 - HUMAN IMMUNODEFICIENCY VIRUS [HIV] DISEASE Assessment/Plan A 62 yof with reproducible left, lower jerald-lateral chest pain, and no significant findings on GI history and exam other than obese abdomen. Elevated lipase, amylase, ALP, WBC noted on blood work and a fatty liver on US of the abdomen. The chest x-ray read didn't report acute pathology in the area of the tenderness. The Lipase normalized on repeat blood work. Amylase will take time to normalize in settings of abnormal renal clearance Suspicious for passed small gallstone/gs pancreatitis in setting of acute pain, leukocytosis, ALP, lipase and amylase elevation. Gastric, duodenal ulcer, or significant gastritis are a possibility. However, given the acute, unprovoked onset, favor either GS, or chest pathology. Asses for chest wall/rib/upper abdomen pathology with a CT Fractionated ALP ?bone GGT PPI EGD on Monday if the above is normal Monitor WBC Low fat diet
[2017-12-22] MEDS ORDERED: ACETAMINOPHEN 325 MG TABLET (FP) ONE (10:46)
[2017-12-22] MEDS: SODIUM CHLORIDE 1,000 ML IV SCH (10:47)
[2017-12-22] MEDS: ACETAMINOPHEN 325 MG TABLET (FP) PO PRN (10:47)
[2017-12-22] MEDS: ASPIRIN 81 MG CHEWABLE TABLETS PO SCH (10:49)
[2017-12-22] MEDS: RANITIDINE HCL 150 MG TABLET (FP) PO SCH (10:49)
--- NOTE | 2017-12-22 11:16 | CON.CARD ---
Consult Consult Specialty:: Cardiology Reason for Consultation:: Chest pain - History of Present Illness History of Present Illness: 62 yo F with h/o DM, HIV on HAART, HTN, HLD, hyporthoidism, peripheral neuropathy, CAD s/p PCI 04/2017 and MGUS. She is admitted with reproducible left sided pain exacerbated with palpation and deep inspiration. A GI work up is in progress for mildly elevated pancreatic enzymes. In 2017 reported typical anginal symptoms after one of her friends . Stress test showed inferior wall ischemia. Underwent LHC 04/2017 that showed severe ostial RPDA stenosis and underwent REBEKA placement. EF was preserved and there was moderate LCx stenosis. She had a negative stress test in 07/2017 after presenting with Atypical and reporoducible chest pain. - History Source History Provided By: Patient, Medical Record - Past Medical History Cardio/Vascular: Yes: CAD (with stent), HTN, Hyperlipdemia ...: No Infectious Disease: Yes: HIV Endocrine: Yes: Diabetes Mellitus (on insulin) - Past Surgical History Past Surgical History: Yes: Appendectomy (complicated- per pt) - Alcohol/Substance Use Hx Alcohol Use: No - Smoking History Smoking history: Former smoker Have you smoked in the past 12 months: No Aproximately how many cigarettes per day: 0 If you are a former smoker, when did you quit?: 40 YRS AGO - Social History ADL: Independent History of Recent Travel: No Home Medications - Allergies Allergies/Adverse Reactions: Allergies Allergy/AdvReac Type Severity Reaction Status Date / Time amoxicillin Allergy Verified 12/21/17 21:33 metronidazole [From Flagyl] Allergy Verified 12/21/17 21:33 - Home Medications Home Medications: Ambulatory Orders Aspirin [ASA -] 81 mg PO DAILY 12/18/15 Efavirenz/Emtricitab/Tenofovir [Atripla Tablet -] 1 tab PO DAILY 12/18/15 Hydrochlorothiazide 25 mg PO DAILY 12/18/15 Insulin Glargine,Hum.rec.anlog [Lantus Solostar PEN -] 45 units SQ HS 12/18/15 Ziprasidone HCl [Geodon] 40 mg PO DAILY 01/06/16 Lisinopril [Prinivil] 20 mg PO DAILY 06/01/17 Family Disease History - Family Disease History Family Disease History: Heart Disease: Mother Review of Systems - Review of Systems Constitutional: reports: No Symptoms, Chills Eyes: reports: No Symptoms HENT: reports: No Symptoms. denies: Difficult Swallowing Neck: reports: No Symptoms Cardiovascular: reports: No Symptoms, Chest Pain. denies: Edema, Palpitations, Shortness of Breath Respiratory: denies: Cough, Exercise Intolerance, Hemoptysis Gastrointestinal: denies: Abdominal Pain, Bloating Genitourinary: reports: No Symptoms Breasts: reports: No Symptoms Reported Vital Signs: Vital Signs Temperature 98.3 F 12/22/17 10:00 Pulse Rate 89 12/22/17 10:00 Respiratory Rate 12/22/17 10:00 Blood Pressure 129/75 12/22/17 10:00 O2 Sat by Pulse Oximetry (%) 98 12/22/17 03:55 Constitutional: Yes: Well Nourished, No Distress, Calm Eyes: Yes: Conjunctiva Clear, EOM Intact HENT: Yes: Atraumatic, Normocephalic Neck: Yes: Supple, Trachea Midline Respiratory: Yes: Regular, CTA Bilaterally Gastrointestinal: Yes: Normal Bowel Sounds, Soft Cardiovascular: Yes: Regular Rate and Rhythm, Other (reporducible left sided chest pain) JVD: No Carotid Bruit: No Heart Sounds: Yes: S1, S2 Murmur: No: Systolic Murmur, Diastolic Murmur Edema: No Peripheral Pulses WNL: No - Other Data Labs, Other Data: CBC, BMP 12/22/17 07:50 12/22/17 07:50 INR, PTT INR 1.07 (0.82-1.09) 12/21/17 22:52 Troponin, BNP 12/21/17 12/22/17 22:57 01:59 Troponin I 0.02 0.02 Troponin, BNP 12/21/17 12/22/17 22:57 01:59 Troponin I 0.02 0.02 NSR no STT changes. Nl axis and interval Problem List - Problems (1) Chest pain Code(s): R07.9 - CHEST PAIN, UNSPECIFIED Assessment/Plan 62 F with HTN and HIV. In 04/2017 sh had PCI/stenting for anginal symptoms. Presenting now with reproducible and musculoskeletal pain. ECG is normal and DAINA negative. Analgisic support for chest pain is appropriate. Continue ASA and consider statin therapy. Will see as needed.
[2017-12-22] MEDS: PANTOPRAZOLE 40 MG TABLET (FP) PO SCH (13:12)
--- NOTE | 2017-12-22 13:46 | PN ---
Progress Note, Physician Chief Complaint: ID ID Consult I used to care for this patient for this 62 year old femalewith HIV many years but she has been followed at [facility] for years and doing well from HIV standpoint. Has a good T cell cound and undectable HIV PCR RNA on Atripla. She sees her provider regularly. Her larger issues have been her obesity "metabolic syndrome" with fatty liver CAD with stenting HPTN and diabetes She may have a component of chronic kidney disease. Here with sudden left lower chest pain yesterday nonradiating No SOB diaphoresis N/V radiation of pain. No recent trauma EKG here unremarkable for ischemic changes. - Current Medication List Current Medications: Active Medications Acetaminophen (Tylenol -) 650 mg PO Q6H PRN PRN Reason: MODERATE PAIN Last Admin: 12/22/17 10:47 Dose: 650 mg Aspirin (Asa -) [address] [facility] Last Admin: 12/22/17 10:49 Dose: 81 mg Sodium Chloride (Normal Saline -) 1,000 mls @ 100 mls/hr IV ASDIR [facility] Last Admin: 12/22/17 10:47 Dose: 100 mls/hr Insulin Aspart (Novolog Vial Sliding Scale -) 1 vial SQ BIDAC BASIA PRN Reason: Protocol Pantoprazole Sodium (Protonix -) [address] [facility] Last Admin: 12/22/17 13:12 Dose: 40 mg Ranitidine HCl (Zantac -) [address] [facility] Last Admin: 12/22/17 10:49 Dose: 150 mg - Objective Vital Signs: Vital Signs Temperature 98.3 F 12/22/17 10:00 Pulse Rate 89 12/22/17 10:00 Respiratory Rate 18 12/22/17 10:00 Blood Pressure 129/75 12/22/17 10:00 O2 Sat by Pulse Oximetry (%) 98 12/22/17 03:55 Constitutional: Yes: Obese Neck: Yes: WNL, Supple Cardiovascular: Yes: S1, S2, Other (Tenderness left lower chest wall clearly reproducible) Respiratory: Yes: WNL, Regular, CTA Bilaterally Gastrointestinal: Yes: WNL, Normal Bowel Sounds, Soft. No: Tenderness, Tenderness, Epigastrium Labs: CBC, BMP 12/22/17 07:50 12/22/17 07:50 INR, PTT INR 1.07 (0.82-1.09) 12/21/17 22:52 Problem List - Problems (1) Costochondritis, acute Code(s): M94.0 - CHONDROCOSTAL JUNCTION SYNDROME [TIETZE] (2) HIV disease Code(s): B20 - HUMAN IMMUNODEFICIENCY VIRUS [HIV] DISEASE Assessment/Plan Laboratory Tests 12/21/17 12/21/17 12/21/17 22:52 22:52 22:57 WBC 21.2 H Plt Count Creat Clearance w eGFR 38.10 AST 17 ALT 17 Total Amylase Lipase 496 H 12/22/17 12/22/17 07:50 07:50 WBC 13.1 H D Plt Count 285 Creat Clearance w eGFR AST ALT Total Amylase 156 H Lipase Assessment HIV positive for years stable on meds. Her issues more to do with the "inflammatory " aspects of being HIV positive CAD DM Metabolic syndrome fatty liver. Her chest pain easily reproducible on palpation with unremarkable EKG so musculoskeletal origin my feeling. Not sure what to make of her elevated Lipase but clincially she does not appear to have pancreatitis Elevated WBC may be stress related Coming down on no antibiotics Plan Discussed with cardiology regarding the above Resume Atripla here if we have it Follow up with her HIV provider GI recommedations seen Michelle CRUZ
[2017-12-22] MEDS: INSULIN SLIDING SCALE (NOVOLOG) 1 VIAL SQ SCH (17:29)
[2017-12-22] MEDS: ZOLPIDEM TARTRATE 5 MG TABLET PO PRN (23:13)
[2017-12-23] MEDS: INSULIN SLIDING SCALE (NOVOLOG) 1 VIAL SQ SCH ×2 (06:20→16:43)
[2017-12-23 07:48] LABS: HEMATOCRIT 32.5 % (32.4-45.2); HEMOGLOBIN 10.5 GM/dL (10.7-15.3); MCH 30.5 pg (25.7-33.7); MCHC 32.4 g/dl (32.0-36.0); MEAN PLT VOLUME 8.4 fl (7.5-11.1); PLATELET COUNT 275 K/MM3 (134-434); RBC 3.46 M/mm3 (3.60-5.2); RDW 13.7 % (11.6-15.6); WHITE BLOOD COUNT 11.2 K/mm3 (4.0-10.0)
[2017-12-23 07:49] LABS: ALBUMIN 3.1 g/dl (3.4-5.0); ALK PHOS 154 U/L (45-117); AMYLASE 127 U/L (25-115); ANION GAP 6 (8-16); BILIRUBIN,TOTAL 0.3 mg/dL (0.2-1.0); BLOOD UREA NITROGEN 18 mg/dL (7-18); CALCIUM 7.9 mg/dL (8.5-10.1); CHLORIDE 111 mmol/L (98-107); CO2 24 mmol/L (21-32); CREATININE 1.1 mg/dL (0.55-1.02); GLUCOSE,RANDOM 237 mg/dL (74-106); POTASSIUM 4.6 mmol/L (3.5-5.1); SGOT/AST 15 U/L (15-37); SGPT/ALT 15 U/L (12-78); SODIUM 141 mmol/L (136-145); TOT PROT 6.7 g/dl (6.4-8.2)
[2017-12-23 07:59] LABS: LIPASE 366 U/L (73-393)
[2017-12-23] MEDS ORDERED: PT OWN MED DRAWER 7, Y5N ONE (08:29)
[2017-12-23] MEDS: RANITIDINE HCL 150 MG TABLET (FP) PO SCH (09:00)
[2017-12-23] MEDS: PANTOPRAZOLE 40 MG TABLET (FP) PO SCH (09:00)
[2017-12-23] MEDS: EFAVIRENZ 200 MG CAPSULE PO SCH (09:00)
[2017-12-23] MEDS: EMTRICITABINE 200MG/TENOFOVIR 300MG PO SCH (09:00)
[2017-12-23] MEDS: ASPIRIN 81 MG CHEWABLE TABLETS PO SCH (09:00)
--- NOTE | 2017-12-23 11:50 | CON.NEP ---
Consult Consult Specialty:: Nephrology Referred by:: Dr. Phelan Reason for Consultation:: CKD, Renal Cyst - History of Present Illness Chief Complaint: Abd pain History of Present Illness: This is a 62 year old woman with PMhx of HIV, Hypertension, DM, HLD who presented with complaints of Abd pain and found to have elevated Cr and cyst like lesion on CT scan. Pt denies any history of CKD. Pt is atripla which contains tenofovir. Pt denies any history of stones. Denies any NSIAD use. No recent contrast exposure. No dysuria, flank pain, hematuria. No N/V/D. No sob or chest pain. - History Source History Provided By: Patient Limitations to Obtaining History: No Limitations - Past Medical History Cardio/Vascular: Yes: CAD (with stent), HTN, Hyperlipdemia ...: No Infectious Disease: Yes: HIV Endocrine: Yes: Diabetes Mellitus (on insulin) - Past Surgical History Past Surgical History: Yes: Appendectomy (complicated- per pt) - Alcohol/Substance Use Hx Alcohol Use: No - Smoking History Smoking history: Former smoker Have you smoked in the past 12 months: No Aproximately how many cigarettes per day: 0 If you are a former smoker, when did you quit?: 40 YRS AGO - Social History ADL: Independent History of Recent Travel: No Home Medications - Allergies Allergies/Adverse Reactions: Allergies Allergy/AdvReac Type Severity Reaction Status Date / Time amoxicillin Allergy Verified 12/21/17 21:33 metronidazole [From Flagyl] Allergy Verified 12/21/17 21:33 - Home Medications Home Medications: Ambulatory Orders Aspirin [ASA -] 81 mg PO DAILY 12/18/15 Efavirenz/Emtricitab/Tenofovir [Atripla Tablet -] 1 tab PO DAILY 12/18/15 Hydrochlorothiazide 25 mg PO DAILY 12/18/15 Insulin Glargine,Hum.rec.anlog [Lantus Solostar PEN -] 45 units SQ HS 12/18/15 Ziprasidone HCl [Geodon] 40 mg PO DAILY 01/06/16 Lisinopril [Prinivil] 20 mg PO DAILY 06/01/17 Family Disease History - Family Disease History Family History: Unremarkable Family Disease History: Heart Disease: Mother Review of Systems - Review of Systems Constitutional: reports: No Symptoms Eyes: reports: No Symptoms HENT: reports: No Symptoms Neck: reports: No Symptoms Cardiovascular: reports: No Symptoms Respiratory: reports: No Symptoms Gastrointestinal: reports: No Symptoms Genitourinary: reports: No Symptoms Musculoskeletal: reports: No Symptoms Integumentary: reports: No Symptoms Neurological: reports: No Symptoms Endocrine: reports: No Symptoms Nephrology Consult - Height Height: 5 ft 9 in - Weight Weight: 105.687 kg - BMI Body Mass Index (BMI): 34.4 - Lab Results CBC,BMP: CBC, BMP 12/23/17 05:43 12/23/17 05:43 Anion Gap: Anion Gap Anion Gap 6 (8-16) L 12/23/17 05:43 - Imaging Cat Scan: Report Reviewed - Physical Examination Vital Signs: Vital Signs Temperature 98.4 F 12/23/17 05:22 Pulse Rate 79 12/23/17 05:22 Respiratory Rate 18 12/23/17 05:22 Blood Pressure 107/59 12/23/17 05:22 O2 Sat by Pulse Oximetry (%) 97 12/22/17 20:33 Constitutional: Yes: No Distress Eyes: Yes: Conjunctiva Clear HENT: Yes: Atraumatic Neck: Yes: Supple Cardiovascular: Yes: Regular Rate and Rhythm Respiratory: Yes: Regular, CTA Bilaterally Gastrointestinal: Yes: Normal Bowel Sounds, Soft Edema: No Assessment/Plan 62 year old woman with PMhx of HIV, Hypertension, DM, HLD who presented with complaints of Abd pain and found to have elevated Cr and cyst like lesion on CT scan. #Renal Cyst seen on CT of the Abd appears to be a simple cyst but may contrain some proteinious material will check US of the kidney to aceess for any solid lesions UA does have some RBC's so it is important to characterize the lesions repeat UA tomorrow #CKD Pt does have a elevated Cr in the past will determine echotexture of kidney on US check UPCR pt is on tenofovir which can cause ATN Trend BUN/Cr #Abd pain work up as per primary Gi following #Hypertension currently off anithypertensives can d/c IVF and trend BP Thank you Will follow Kane Aguirre DO Current Medications Acetaminophen (Tylenol -) 650 mg PO Q6H PRN PRN Reason: MODERATE PAIN Last Admin: 12/22/17 10:47 Dose: 650 mg Aspirin (Asa -) 81 mg PO DAILY [facility] Last Admin: 12/23/17 09:00 Dose: 81 mg Efavirenz (Sustiva -) 600 mg PO DAILY [facility] Last Admin: 12/23/17 09:00 Dose: 600 mg Emtricitabine/Tenofovir (Truvada) 1 tab PO DAILY [facility] Last Admin: 12/23/17 09:00 Dose: 1 tab Sodium Chloride (Normal Saline -) 1,000 mls @ 100 mls/hr IV ASDIR [facility] Last Admin: 12/22/17 10:47 Dose: 100 mls/hr Insulin Aspart (Novolog Vial Sliding Scale -) 1 vial SQ BIDAC [facility] PRN Reason: Protocol Last Admin: 12/23/17 06:20 Dose: 6 units Pantoprazole Sodium (Protonix -) 40 mg PO DAILY [facility] Last Admin: 12/23/17 09:00 Dose: 40 mg Ranitidine HCl (Zantac -) 150 mg PO DAILY [facility] Last Admin: 12/23/17 09:00 Dose: 150 mg Zolpidem Tartrate (Ambien -) 5 mg PO HS PRN PRN Reason: INSOMNIA Last Admin: 12/22/17 23:13 Dose: 5 mg
[2017-12-23] MEDS: SODIUM CHLORIDE 1,000 ML IV SCH (12:00)
--- NOTE | 2017-12-23 12:11 | PN ---
Progress Note, Physician History of Present Illness: Pt w/o SOB, CP, palp, abd pain. SHe is tolerating well PO intake - Current Medication List Current Medications: Active Medications Acetaminophen (Tylenol -) 650 mg PO Q6H PRN PRN Reason: MODERATE PAIN Last Admin: 12/22/17 10:47 Dose: 650 mg Aspirin (Asa -) 81 mg PO DAILY [facility] Last Admin: 12/23/17 09:00 Dose: 81 mg Efavirenz (Sustiva -) 600 mg PO DAILY [facility] Last Admin: 12/23/17 09:00 Dose: 600 mg Emtricitabine/Tenofovir (Truvada) 1 tab PO DAILY [facility] Last Admin: 12/23/17 09:00 Dose: 1 tab Sodium Chloride (Normal Saline -) 1,000 mls @ 100 mls/hr IV ASDIR [facility] Last Admin: 12/22/17 10:47 Dose: 100 mls/hr Insulin Aspart (Novolog Vial Sliding Scale -) 1 vial SQ BIDAC [facility] PRN Reason: Protocol Last Admin: 12/23/17 06:20 Dose: 6 units Pantoprazole Sodium (Protonix -) 40 mg PO DAILY [facility] Last Admin: 12/23/17 09:00 Dose: 40 mg Ranitidine HCl (Zantac -) 150 mg PO DAILY [facility] Last Admin: 12/23/17 09:00 Dose: 150 mg Zolpidem Tartrate (Ambien -) 5 mg PO HS PRN PRN Reason: INSOMNIA Last Admin: 12/22/17 23:13 Dose: 5 mg - Objective Vital Signs: Vital Signs Temperature 98.4 F 12/23/17 05:22 Pulse Rate 79 12/23/17 05:22 Respiratory Rate 18 12/23/17 05:22 Blood Pressure 107/59 12/23/17 05:22 O2 Sat by Pulse Oximetry (%) 97 12/22/17 20:33 Constitutional: Yes: No Distress, Calm Cardiovascular: Yes: Regular Rate and Rhythm, S1, S2 Respiratory: Yes: Regular, CTA Bilaterally. No: Rales Gastrointestinal: Yes: Normal Bowel Sounds, Soft, Abdomen, Obese. No: Tenderness Edema: No Neurological: Yes: Alert, Oriented Labs: CBC, BMP 12/23/17 05:43 12/23/17 05:43 INR, PTT INR 1.07 (0.82-1.09) 12/21/17 22:52 Problem List - Problems (1) Chest pain Code(s): R07.9 - CHEST PAIN, UNSPECIFIED (2) Pancreatitis Code(s): K85.90 - ACUTE PANCREATITIS WITHOUT NECROSIS OR INFECTION, UNSP (3) Leukocytosis Code(s): D72.829 - ELEVATED WHITE BLOOD CELL COUNT, UNSPECIFIED Qualifiers: Leukocytosis type: unspecified Qualified Code(s): D72.829 - Elevated white blood cell count, unspecified (4) ERIKA (acute kidney injury) Code(s): N17.9 - ACUTE KIDNEY FAILURE, UNSPECIFIED (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 Cardio, GI, ID, Renal consults appreciated Probable mild case of pancreatitis; repeat labs today in AM; hold HIV meds AM labs Restart Lantus Consider Pulm consult Case was d/w pt's nurse.
--- NOTE | 2017-12-23 15:11 | PN ---
Progress Note, Physician History of Present Illness: No events. Comfortable. LL chest tenderness still present, better. CT results noted - Current Medication List Current Medications: Active Medications Acetaminophen (Tylenol -) 650 mg PO Q6H PRN PRN Reason: MODERATE PAIN Last Admin: 12/22/17 10:47 Dose: 650 mg Aspirin (Asa -) 81 mg PO DAILY [facility] Last Admin: 12/23/17 09:00 Dose: 81 mg Efavirenz (Sustiva -) 600 mg PO DAILY [facility] Last Admin: 12/23/17 09:00 Dose: 600 mg Emtricitabine/Tenofovir (Truvada) 1 tab PO DAILY [facility] Last Admin: 12/23/17 09:00 Dose: 1 tab Sodium Chloride (Normal Saline -) 1,000 mls @ 100 mls/hr IV ASDIR [facility] Last Admin: 12/22/17 10:47 Dose: 100 mls/hr Insulin Aspart (Novolog Vial Sliding Scale -) 1 vial SQ BIDAC [facility] PRN Reason: Protocol Last Admin: 12/23/17 06:20 Dose: 6 units Insulin Detemir (Levemir Vial) 45 units SQ HS [facility] Pantoprazole Sodium (Protonix -) 40 mg PO DAILY [facility] Last Admin: 12/23/17 09:00 Dose: 40 mg Ranitidine HCl (Zantac -) 150 mg PO DAILY [facility] Last Admin: 12/23/17 09:00 Dose: 150 mg Zolpidem Tartrate (Ambien -) 5 mg PO HS PRN PRN Reason: INSOMNIA Last Admin: 12/22/17 23:13 Dose: 5 mg - Objective Vital Signs: Vital Signs Temperature 98.4 F 12/23/17 10:00 Pulse Rate 80 12/23/17 10:00 Respiratory Rate 18 12/23/17 10:00 Blood Pressure 138/81 12/23/17 10:00 O2 Sat by Pulse Oximetry (%) 96 12/23/17 10:00 Constitutional: Yes: Well Nourished, No Distress, Calm Eyes: Yes: Conjunctiva Clear HENT: Yes: Atraumatic Neck: Yes: Supple Cardiovascular: Yes: Regular Rate and Rhythm Respiratory: Yes: Regular Gastrointestinal: Yes: Soft. No: Melena, Tenderness, Vomiting Neurological: Yes: Alert, Oriented Labs: CBC, BMP 12/23/17 05:43 12/23/17 05:43 INR, PTT INR 1.07 (0.82-1.09) 12/21/17 22:52 Abnormal Lab Results 12/23/17 12/23/17 05:43 05:43 WBC 11.2 H RBC 3.46 L Hgb 10.5 L Chloride 111 H Anion Gap 6 L Creatinine 1.1 H Random Glucose 237 H Calcium 7.9 L Alkaline Phosphatase 154 H Albumin 3.1 L Total Amylase 127 H Problem List - Problems (1) Costochondritis, acute Code(s): M94.0 - CHONDROCOSTAL JUNCTION SYNDROME [TIETZE] (2) Pancreatitis Code(s): K85.90 - ACUTE PANCREATITIS WITHOUT NECROSIS OR INFECTION, UNSP (3) HIV disease Code(s): B20 - HUMAN IMMUNODEFICIENCY VIRUS [HIV] DISEASE Assessment/Plan EGD early next week Fractionated ALP ?bone GGT PPI po qam Monitor WBC Low fat diet
[2017-12-23] MEDS: INSULIN DETEMIR 100 UNITS/ML MDV SQ SCH (21:50)
[2017-12-23] MEDS ORDERED: amLODIPine BESYLATE 5 MG TABLET (FP) PO ONE (22:15)
[2017-12-23] MEDS: CITALOPRAM HYDROBROMIDE 20 MG TABLET (FP) PO SCH (22:18)
[2017-12-23] MEDS: ZOLPIDEM TARTRATE 5 MG TABLET PO PRN (22:18)
[2017-12-24 06:57] LABS: HEMATOCRIT 33.3 % (32.4-45.2); HEMOGLOBIN 10.7 GM/dL (10.7-15.3); MCH 30.1 pg (25.7-33.7); MCHC 32.3 g/dl (32.0-36.0); MEAN CELL VOLUME 93.2 fl (80-96); MEAN PLT VOLUME 8.3 fl (7.5-11.1); PLATELET COUNT 292 K/MM3 (134-434); RBC 3.57 M/mm3 (3.60-5.2); RDW 13.9 % (11.6-15.6); WHITE BLOOD COUNT 11.7 K/mm3 (4.0-10.0)
[2017-12-24 07:53] LABS: CHLORIDE 110 mmol/L (98-107); SODIUM 143 mmol/L (136-145)
[2017-12-24 08:25] LABS: ALBUMIN 3.2 g/dl (3.4-5.0); ALK PHOS 157 U/L (45-117); ANION GAP 12 (8-16); BILIRUBIN,TOTAL 0.2 mg/dL (0.2-1.0); BLOOD UREA NITROGEN 15 mg/dL (7-18); CALCIUM 8.7 mg/dL (8.5-10.1); CO2 21 mmol/L (21-32); CREATININE 1.1 mg/dL (0.55-1.02); GLUCOSE,RANDOM 148 mg/dL (74-106); MAGNESIUM 1.8 mg/dL (1.8-2.4); PHOSPHOROUS 2.9 mg/dL (2.5-4.9); SGOT/AST 16 U/L (15-37)
[2017-12-24 08:56] LABS: SGPT/ALT 15 U/L (12-78)
[2017-12-24] MEDS: PANTOPRAZOLE 40 MG TABLET (FP) PO SCH (09:26)
[2017-12-24] MEDS: ASPIRIN 81 MG CHEWABLE TABLETS PO SCH (09:26)
[2017-12-24] MEDS: CITALOPRAM HYDROBROMIDE 20 MG TABLET (FP) PO SCH (09:26)
[2017-12-24] MEDS: RANITIDINE HCL 150 MG TABLET (FP) PO SCH (09:26)
[2017-12-24] MEDS: EFAVIRENZ 200 MG CAPSULE PO SCH (09:27)
--- NOTE | 2017-12-24 09:27 | PN ---
Progress Note (short form) - Note Progress Note: Renal follow up for Renal cyst/CKD Pt seen and examined at the bedside awake and alert no acute complaints no sob, chest pain, abd pain making urine Vital Signs Temperature 98.2 F 12/24/17 07:23 Pulse Rate 79 12/24/17 07:23 Respiratory Rate 20 12/24/17 07:26 Blood Pressure 138/77 12/24/17 07:23 O2 Sat by Pulse Oximetry (%) 99 12/24/17 07:26 Intake & Output 12/21/17 12/22/17 12/23/17 12/24/17 23:59 23:59 23:59 23:59 Intake Total 1040 1840 1690 Balance 1040 1840 1690 Weight 81.647 kg 105.687 kg 105.687 kg NAD awake and alert no LE edema CBC, BMP 12/24/17 05:37 12/24/17 05:37 Laboratory Tests 12/24/17 05:37 Calcium 8.7 Phosphorus 2.9 Magnesium 1.8 Albumin 3.2 L Current Medications Acetaminophen (Tylenol -) 650 mg PO Q6H PRN PRN Reason: MODERATE PAIN Last Admin: 12/22/17 10:47 Dose: 650 mg Aspirin (Asa -) 81 mg PO DAILY [facility] Last Admin: 12/23/17 09:00 Dose: 81 mg Citalopram Hydrobromide (Celexa -) 40 mg PO DAILY [facility] Last Admin: 12/23/17 22:18 Dose: 40 mg Efavirenz (Sustiva -) 600 mg PO DAILY [facility] Last Admin: 12/23/17 09:00 Dose: 600 mg Emtricitabine/Tenofovir (Truvada) 1 tab PO DAILY [facility] Last Admin: 12/23/17 09:00 Dose: 1 tab Sodium Chloride (Normal Saline -) 1,000 mls @ 100 mls/hr IV ASDIR [facility] Last Admin: 12/23/17 12:00 Dose: 100 mls/hr Insulin Aspart (Novolog Vial Sliding Scale -) 1 vial SQ BIDAC [facility] PRN Reason: Protocol Last Admin: 12/23/17 16:43 Dose: 10 units Insulin Detemir (Levemir Vial) 45 units SQ HS [facility] Last Admin: 12/23/17 21:50 Dose: 45 units Pantoprazole Sodium (Protonix -) 40 mg PO DAILY [facility] Last Admin: 12/23/17 09:00 Dose: 40 mg Ranitidine HCl (Zantac -) 150 mg PO DAILY [facility] Last Admin: 12/23/17 09:00 Dose: 150 mg Zolpidem Tartrate (Ambien -) 5 mg PO HS PRN PRN Reason: INSOMNIA Last Admin: 12/23/17 22:18 Dose: 5 mg 62 year old woman with PMhx of HIV, Hypertension, DM, HLD who presented with complaints of Abd pain and found to have elevated Cr and cyst like lesion on CT scan. #Renal Cyst seen on CT of the Abd US performed, read is pending would repeat UA today to monitor for RBCs pt would benefit from repeat CT and urology eval as outpatient #CKD Pt does have a elevated Cr in the past US read is pending renal function stable at this time urine studies pending #Abd pain work up as per primary Gi following for possible EGD Kane Aguirre DO
[2017-12-24] MEDS: EMTRICITABINE 200MG/TENOFOVIR 300MG PO SCH (09:28)
[2017-12-24] MEDS: SODIUM CHLORIDE 1,000 ML IV SCH (09:36)
[2017-12-24] MEDS: INSULIN SLIDING SCALE (NOVOLOG) 1 VIAL SQ SCH ×2 (09:36→16:34)
[2017-12-24 09:41] LABS: PLATELET ESTIMATE ADEQUATE
--- NOTE | 2017-12-24 11:39 | PN ---
Progress Note, Physician History of Present Illness: Pt w/o SOB, CP, palp, abd pain. She is tolerating well PO intake. She didn't sleep as well last night as before; she states that is taking ambien 10 mg every night. - Current Medication List Current Medications: Active Medications Acetaminophen (Tylenol -) 650 mg PO Q6H PRN PRN Reason: MODERATE PAIN Last Admin: 12/22/17 10:47 Dose: 650 mg Aspirin (Asa -) 81 mg PO DAILY [facility] Last Admin: 12/24/17 09:26 Dose: 81 mg Citalopram Hydrobromide (Celexa -) 40 mg PO DAILY [facility] Last Admin: 12/24/17 09:26 Dose: 40 mg Efavirenz (Sustiva -) 600 mg PO DAILY [facility] Last Admin: 12/24/17 09:27 Dose: 600 mg Emtricitabine/Tenofovir (Truvada) 1 tab PO DAILY [facility] Last Admin: 12/24/17 09:28 Dose: 1 tab Sodium Chloride (Normal Saline -) 1,000 mls @ 100 mls/hr IV ASDIR [facility] Last Admin: 12/24/17 09:36 Dose: 100 mls/hr Insulin Aspart (Novolog Vial Sliding Scale -) 1 vial SQ BIDAC [facility] PRN Reason: Protocol Last Admin: 12/24/17 09:36 Dose: Not Given Insulin Detemir (Levemir Vial) 45 units SQ HS [facility] Last Admin: 12/23/17 21:50 Dose: 45 units Pantoprazole Sodium (Protonix -) 40 mg PO DAILY [facility] Last Admin: 12/24/17 09:26 Dose: 40 mg Ranitidine HCl (Zantac -) 150 mg PO DAILY [facility] Last Admin: 12/24/17 09:26 Dose: 150 mg Zolpidem Tartrate (Ambien -) 5 mg PO HS PRN PRN Reason: INSOMNIA Last Admin: 12/23/17 22:18 Dose: 5 mg - Objective Vital Signs: Vital Signs Temperature 98.2 F 12/24/17 07:23 Pulse Rate 79 12/24/17 07:23 Respiratory Rate 20 12/24/17 07:26 Blood Pressure 138/77 12/24/17 07:23 O2 Sat by Pulse Oximetry (%) 99 12/24/17 07:26 Constitutional: Yes: No Distress, Calm Respiratory: Yes: Regular, CTA Bilaterally. No: Rales Gastrointestinal: Yes: Normal Bowel Sounds, Soft. No: Tenderness Edema: No Neurological: Yes: Alert, Oriented Labs: CBC, BMP 12/24/17 05:37 12/24/17 05:37 INR, PTT INR 1.07 (0.82-1.09) 12/21/17 22:52 Problem List - Problems (1) Chest pain Code(s): R07.9 - CHEST PAIN, UNSPECIFIED (2) Pancreatitis Code(s): K85.90 - ACUTE PANCREATITIS WITHOUT NECROSIS OR INFECTION, UNSP (3) Leukocytosis Code(s): D72.829 - ELEVATED WHITE BLOOD CELL COUNT, UNSPECIFIED Qualifiers: Leukocytosis type: unspecified Qualified Code(s): D72.829 - Elevated white blood cell count, unspecified (4) ERIKA (acute kidney injury) Code(s): N17.9 - ACUTE KIDNEY FAILURE, UNSPECIFIED (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 Cardio, GI, ID, Renal consults appreciated Probable mild case of pancreatitis AM labs Restart Lantus Pulm consult for mediastinal LA. Add small dose Lisinopril. Case was d/w pt's nurse.
[2017-12-24] MEDS ORDERED: ZOLPIDEM TARTRATE 5 MG TABLET PO PRN (12:21)
[2017-12-24] MEDS: LISINOPRIL 10 MG TABLET (FP) PO SCH (12:52)
[2017-12-24] MEDS: INSULIN DETEMIR 100 UNITS/ML MDV SQ SCH (22:21)
[2017-12-24] MEDS: ACETAMINOPHEN 325 MG TABLET (FP) PO PRN (23:41)
[2017-12-25] MEDS: INSULIN SLIDING SCALE (NOVOLOG) 1 VIAL SQ SCH ×2 (06:20→17:32)
[2017-12-25 06:46] LABS: HEMATOCRIT 30.8 % (32.4-45.2); HEMOGLOBIN 10.1 GM/dL (10.7-15.3); MCH 30.7 pg (25.7-33.7); MCHC 32.8 g/dl (32.0-36.0); MEAN CELL VOLUME 93.6 fl (80-96); MEAN PLT VOLUME 8.7 fl (7.5-11.1); PLATELET COUNT 301 K/MM3 (134-434); RBC 3.29 M/mm3 (3.60-5.2); RDW 13.6 % (11.6-15.6)
[2017-12-25 07:10] LABS: ANION GAP 11 (8-16); BLOOD UREA NITROGEN 16 mg/dL (7-18); CHLORIDE 110 mmol/L (98-107); CO2 21 mmol/L (21-32); GLUCOSE,RANDOM 173 mg/dL (74-106); POTASSIUM 3.9 mmol/L (3.5-5.1); SODIUM 142 mmol/L (136-145)
[2017-12-25 07:15] LABS: ALK PHOS 141 U/L (45-117); BILIRUBIN,TOTAL 0.4 mg/dL (0.2-1.0); SGOT/AST 11 U/L (15-37); SGPT/ALT 13 U/L (12-78); TOT PROT 6.5 g/dl (6.4-8.2)
[2017-12-25] MEDS ORDERED: PT OWN MED DRAWER 7, Y5N ONE (09:31)
--- NOTE | 2017-12-25 09:31 | PN ---
Progress Note, Physician History of Present Illness: Pt w/o SOB, CP, palp, abd pain. She is tolerating well PO intake. - Current Medication List Current Medications: Active Medications Acetaminophen (Tylenol -) 650 mg PO Q6H PRN PRN Reason: MODERATE PAIN Last Admin: 12/24/17 23:41 Dose: 650 mg Aspirin (Asa -) 81 mg PO DAILY [facility] Last Admin: 12/24/17 09:26 Dose: 81 mg Citalopram Hydrobromide (Celexa -) 40 mg PO DAILY [facility] Last Admin: 12/24/17 09:26 Dose: 40 mg Efavirenz (Sustiva -) 600 mg PO DAILY [facility] Last Admin: 12/24/17 09:27 Dose: 600 mg Emtricitabine/Tenofovir (Truvada) 1 tab PO DAILY [facility] Last Admin: 12/24/17 09:28 Dose: 1 tab Sodium Chloride (Normal Saline -) 1,000 mls @ 100 mls/hr IV ASDIR [facility] Last Admin: 12/24/17 09:36 Dose: 100 mls/hr Insulin Aspart (Novolog Vial Sliding Scale -) 1 vial SQ BIDAC [facility] PRN Reason: Protocol Last Admin: 12/25/17 06:20 Dose: Not Given Insulin Detemir (Levemir Vial) 45 units SQ HS [facility] Last Admin: 12/24/17 22:21 Dose: 45 units Lisinopril (Prinivil) 10 mg PO DAILY [facility] Last Admin: 12/24/17 12:52 Dose: 10 mg Pantoprazole Sodium (Protonix -) 40 mg PO DAILY [facility] Last Admin: 12/24/17 09:26 Dose: 40 mg Ranitidine HCl (Zantac -) 150 mg PO DAILY [facility] Last Admin: 12/24/17 09:26 Dose: 150 mg Zolpidem Tartrate (Ambien -) 10 mg PO HS PRN PRN Reason: INSOMNIA - Objective Vital Signs: Vital Signs Temperature 98.0 F 12/25/17 07:30 Pulse Rate 74 12/25/17 07:30 Respiratory Rate 20 12/25/17 07:38 Blood Pressure 138/73 12/25/17 07:30 O2 Sat by Pulse Oximetry (%) 97 12/25/17 07:38 Constitutional: Yes: No Distress, Calm Cardiovascular: Yes: Regular Rate and Rhythm, S1, S2 Respiratory: Yes: Regular, CTA Bilaterally. No: Rales Gastrointestinal: Yes: Normal Bowel Sounds, Soft. No: Tenderness Peripheral Pulses WNL: No Neurological: Yes: Alert, Oriented Labs: CBC, BMP 12/25/17 06:20 12/25/17 06:20 INR, PTT INR 1.07 (0.82-1.09) 12/21/17 22:52 Problem List - Problems (1) Chest pain Code(s): R07.9 - CHEST PAIN, UNSPECIFIED (2) Pancreatitis Code(s): K85.90 - ACUTE PANCREATITIS WITHOUT NECROSIS OR INFECTION, UNSP (3) Leukocytosis Code(s): D72.829 - ELEVATED WHITE BLOOD CELL COUNT, UNSPECIFIED Qualifiers: Leukocytosis type: unspecified Qualified Code(s): D72.829 - Elevated white blood cell count, unspecified (4) ERIKA (acute kidney injury) Code(s): N17.9 - ACUTE KIDNEY FAILURE, UNSPECIFIED (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 Code(s): E11.29 - TYPE 2 DIABETES MELLITUS W OTH DIABETIC KIDNEY COMPLICATION (6) HLD (hyperlipidemia) Code(s): E78.5 - HYPERLIPIDEMIA, UNSPECIFIED (7) HTN (hypertension) Code(s): I10 - ESSENTIAL (PRIMARY) HYPERTENSION (8) HIV disease Code(s): B20 - HUMAN IMMUNODEFICIENCY VIRUS [HIV] DISEASE (9) Kidney cysts Code(s): N28.1 - CYST OF KIDNEY, ACQUIRED (10) Mediastinal lymphadenopathy Code(s): R59.0 - LOCALIZED ENLARGED LYMPH NODES (11) Depression Code(s): F32.9 - MAJOR DEPRESSIVE DISORDER, SINGLE EPISODE, UNSPECIFIED (12) Insomnia Code(s): G47.00 - INSOMNIA, UNSPECIFIED Assessment/Plan Admitted to monitor bed. Cardio, GI, ID, Renal consults appreciated Probable mild case of pancreatitis AM labs Restart Lantus Pulm consult for mediastinal LA. Add small dose Lisinopril. For EGD today; to f/u with GI. Case was d/w pt's nurse.
[2017-12-25] MEDS: LISINOPRIL 10 MG TABLET (FP) PO SCH (09:35)
--- NOTE | 2017-12-25 12:00 | PN ---
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 ASHD S/P STENT HTN HLD DM PLAN ANALGESICS F/U CHEST CT 6 MONTHS MONITOR PANCREATIC ENZYMES GI W/U CONTINUE HAART DR BARTHOLOMEW Problem List - Problems (1) Chest pain Code(s): R07.9 - CHEST PAIN, UNSPECIFIED (2) Chest pain Code(s): R07.9 - CHEST PAIN, UNSPECIFIED (3) Costochondritis, acute Code(s): M94.0 - CHONDROCOSTAL JUNCTION SYNDROME [TIETZE] (4) Mediastinal lymphadenopathy Code(s): R59.0 - LOCALIZED ENLARGED LYMPH NODES (5) Pancreatitis Code(s): K85.90 - ACUTE PANCREATITIS WITHOUT NECROSIS OR INFECTION, UNSP (6) HIV disease Code(s): B20 - HUMAN IMMUNODEFICIENCY VIRUS [HIV] DISEASE (7) Hyperglycemia Code(s): R73.9 - HYPERGLYCEMIA, UNSPECIFIED (8) HLD (hyperlipidemia) Code(s): E78.5 - HYPERLIPIDEMIA, UNSPECIFIED (9) HTN (hypertension) Code(s): I10 - ESSENTIAL (PRIMARY) HYPERTENSION
--- NOTE | 2017-12-25 12:49 | PN ---
Progress Note, Physician Chief Complaint: ID Discussed with Dr Phelan Patient for EGD - Current Medication List Current Medications: Active Medications Acetaminophen (Tylenol -) 650 mg PO Q6H PRN PRN Reason: MODERATE PAIN Last Admin: 12/24/17 23:41 Dose: 650 mg Aspirin (Asa -) 81 mg PO DAILY [facility] Last Admin: 12/24/17 09:26 Dose: 81 mg Citalopram Hydrobromide (Celexa -) 40 mg PO DAILY [facility] Last Admin: 12/24/17 09:26 Dose: 40 mg Efavirenz (Sustiva -) 600 mg PO DAILY [facility] Last Admin: 12/24/17 09:27 Dose: 600 mg Emtricitabine/Tenofovir (Truvada) 1 tab PO DAILY [facility] Last Admin: 12/24/17 09:28 Dose: 1 tab Sodium Chloride (Normal Saline -) 1,000 mls @ 100 mls/hr IV ASDIR [facility] Last Admin: 12/24/17 09:36 Dose: 100 mls/hr Insulin Aspart (Novolog Vial Sliding Scale -) 1 vial SQ BIDAC [facility] PRN Reason: Protocol Last Admin: 12/25/17 06:20 Dose: Not Given Insulin Detemir (Levemir Vial) 45 units SQ HS [facility] Last Admin: 12/24/17 22:21 Dose: 45 units Lisinopril (Prinivil) 10 mg PO DAILY [facility] Last Admin: 12/25/17 09:35 Dose: 10 mg Pantoprazole Sodium (Protonix -) 40 mg PO DAILY [facility] Last Admin: 12/24/17 09:26 Dose: 40 mg Ranitidine HCl (Zantac -) 150 mg PO DAILY [facility] Last Admin: 12/24/17 09:26 Dose: 150 mg Zolpidem Tartrate (Ambien -) 10 mg PO HS PRN PRN Reason: INSOMNIA - Objective Vital Signs: Vital Signs Temperature 98.0 F 12/25/17 07:30 Pulse Rate 74 12/25/17 07:30 Respiratory Rate 20 12/25/17 07:38 Blood Pressure 138/73 12/25/17 07:30 O2 Sat by Pulse Oximetry (%) 97 12/25/17 07:38 Labs: CBC, BMP 12/25/17 06:20 12/25/17 06:20 INR, PTT INR 1.07 (0.82-1.09) 12/21/17 22:52 Problem List - Problems (1) Costochondritis, acute Code(s): M94.0 - CHONDROCOSTAL JUNCTION SYNDROME [TIETZE] (2) HIV disease Code(s): B20 - HUMAN IMMUNODEFICIENCY VIRUS [HIV] DISEASE Assessment/Plan Laboratory Tests 12/25/17 06:20 WBC 11.0 H Hgb 10.1 L Plt Count 301 Assessment patient can probably be discharged to her PMD [place] assuming her EGD unremakable as discussed Michelle CRUZ
[2017-12-25] MEDS ORDERED: MIDAZOLAM HCL 2 MG/2 ML SINGLE DOSE VIAL ONE (13:11)
[2017-12-25] MEDS ORDERED: LIDOCAINE VISCOUS 2% ORAL/TOP 20 ML UNIT-DOSE CUP MM ONE (13:12)
--- NOTE | 2017-12-25 13:26 | PROC ---
Endoscopy Procedure Endoscopy procedure completed. Please see scanned procedure report. Mild gastritis in the antrum, otherwise normal EGD. Random biopsies taken from proximal small bowel and the stomach. Follow results in office in 1 week
--- NOTE | 2017-12-25 13:33 | CONS ---
DATE OF CONSULTATION: 12/25/2017 REFERRING PHYSICIAN: Cesar Phelan MD HISTORY: The patient is a 62-year-old black female with a past medical history of HIV currently on HAART therapy, hypertension, hyperlipidemia, ASHD status post stent in April 2017, MGUS, hypothyroidism, peripheral neuropathy, nonsmoker admitted to [facility] with the complaint of left-sided chest pain. The patient states that she was washing dishes and suddenly developed left-sided chest pain. She describes the pain as sharp in character increasing with movement. She denied any shortness of breath, fever, chills, nausea, vomiting, or diaphoresis. She presented to the emergency room with above. The patient also states that the pain was reproducible increasing with movement and palpation. In the emergency room, she underwent CT scan of the chest that revealed no evidence of any infiltrates and/or effusions. CT of the abdomen and pelvis were performed, which revealed evidence of cortical thickening of the right kidney and lobulated contoured unchanged from January 06 and showed a 2.7 cortical lesion in the upper pole of the right kidney. Of note is also a CT scan of the chest that revealed numbers nonspecific subcentimeter mediastinal nodes not pathologically enlarged. The patient denies any shortness of breath. Denies any dyspnea on exertion, PND, or orthopnea. Denies any fevers, weight loss, or night sweats. She has a history of smoking. Quit greater than 40 years ago. She is currently employed as a nurse's aide. PAST MEDICAL HISTORY: Again include HIV on HAART therapy, ASHD status post stent, hypertension, hyperlipidemia, hypothyroidism, peripheral neuropathy, MGUS, diabetes. REVIEW OF SYSTEMS: No orthopnea, no PND, no cough, no hemoptysis. Positive left-sided chest pain reproducible. No abdominal pain, no nausea, no vomiting. SOCIAL HISTORY: Born in [place]. Moved to [place] many years ago. History of smoking. Quit greater than 40 years ago. CURRENT MEDICATIONS: Include Tylenol, Prinivil, Celexa, Sustiva, Truvada, Ambien, normal saline, Zantac, Norvasc, Levemir, aspirin, Protonix. PHYSICAL EXAMINATION: General: The patient is a well-developed, well-nourished female awake and alert in no acute distress. Vital Signs: She is afebrile. Blood pressure 138/73, respiratory rate 20, O2 saturation 97% on room air. HEENT: Normocephalic and atraumatic. Neck: Supple. Heart: Regular with S1, S2. Chest: Clear. Abdomen: Soft. Bowel sounds positive. Extremities: No cyanosis or edema. LABORATORIES: BUN 16, creatinine 1, alkaline phosphatase 141, lipase elevated on admission 496, currently at 366. Amylase 156 on admission, currently 127. Chest CT: No acute infiltrates or effusions. There are multiple mediastinal nodes not enlarged. There was a 1.5-cm x 1-cm tracheal diverticulum by posterolateral wall. IMPRESSION: 1. Chest pain syndrome most likely musculoskeletal. The pain is reproducible with movement and palpation. 2. Elevated pancreatic cancer, pancreatitis secondary to possible gallstones. 3. Human immunodeficiency virus currently on highly active antiretroviral therapy. 4. Mediastinal nodules, nonspecific. 5. Tracheal diverticulum. 6. Hypertension. 7. Arteriosclerotic heart disease. PLAN: Continue GI workup as per GI. Obtain follow up chest CT in 4-6 months to evaluate mediastinal nodes. Continue HAART therapy. O2 p.r.ru BARTHOLOMEW M.D. RAVINDER/[id number]
[2017-12-25 13:44] VITALS: TEMP 98.5
[2017-12-25 14:00] VITALS: BP 150/77; PULSE 65
--- NOTE | 2017-12-25 16:45 | PN ---
Progress Note (short form) - Note Progress Note: Renal follow up for Renal cyst/CKD Pt seen and examined at the bedside no acute complaints no sob, chest pain, abd pain Vital Signs Temperature 98.5 F 12/25/17 13:25 Pulse Rate 65 12/25/17 13:59 Respiratory Rate 20 12/25/17 13:59 Blood Pressure 150/77 12/25/17 13:59 O2 Sat by Pulse Oximetry (%) 99 12/25/17 13:59 Intake & Output 12/22/17 12/23/17 12/24/17 12/25/17 23:59 23:59 23:59 23:59 Intake Total 1040 1840 3160 2660 Balance 1040 1840 3160 2660 Weight 105.687 kg 105.687 kg NAD awake and alert no LE edema CBC, BMP 12/25/17 06:20 12/25/17 06:20 Current Medications Acetaminophen (Tylenol -) 650 mg PO Q6H PRN PRN Reason: MODERATE PAIN Last Admin: 12/24/17 23:41 Dose: 650 mg Aspirin (Asa -) 81 mg PO DAILY [facility] Last Admin: 12/24/17 09:26 Dose: 81 mg Citalopram Hydrobromide (Celexa -) 40 mg PO DAILY [facility] Last Admin: 12/24/17 09:26 Dose: 40 mg Efavirenz (Sustiva -) 600 mg PO DAILY [facility] Last Admin: 12/24/17 09:27 Dose: 600 mg Emtricitabine/Tenofovir (Truvada) 1 tab PO DAILY [facility] Last Admin: 12/24/17 09:28 Dose: 1 tab Sodium Chloride (Normal Saline -) 1,000 mls @ 100 mls/hr IV ASDIR [facility] Last Admin: 12/24/17 09:36 Dose: 100 mls/hr Insulin Aspart (Novolog Vial Sliding Scale -) 1 vial SQ BIDAC [facility] PRN Reason: Protocol Last Admin: 12/25/17 06:20 Dose: Not Given Insulin Detemir (Levemir Vial) 45 units SQ HS [facility] Last Admin: 12/24/17 22:21 Dose: 45 units Lisinopril (Prinivil) 10 mg PO DAILY [facility] Last Admin: 12/25/17 09:35 Dose: 10 mg Pantoprazole Sodium (Protonix -) 40 mg PO DAILY [facility] Last Admin: 12/24/17 09:26 Dose: 40 mg Ranitidine HCl (Zantac -) 150 mg PO DAILY [facility] Last Admin: 12/24/17 09:26 Dose: 150 mg Zolpidem Tartrate (Ambien -) 10 mg PO HS PRN PRN Reason: INSOMNIA 62 year old woman with PMhx of HIV, Hypertension, DM, HLD who presented with complaints of Abd pain and found to have elevated Cr and cyst like lesion on CT scan. #Renal Cyst seen on CT of the Abd US showed no pathology would recommend outpatient urology follow up and CT of Abd #CKD Pt does have a elevated Cr in the past Renal function stable at this time UPCR is pending US showed no change in size or echotexture of the kidney #Abd pain work up as per primary Gi following for possible EGD Kane Aguirre DO
[2017-12-25] MEDS: ASPIRIN 81 MG CHEWABLE TABLETS PO SCH (17:33)
[2017-12-25] MEDS: RANITIDINE HCL 150 MG TABLET (FP) PO SCH (17:33)
[2017-12-25] MEDS: PANTOPRAZOLE 40 MG TABLET (FP) PO SCH (17:33)
[2017-12-25] MEDS: CITALOPRAM HYDROBROMIDE 20 MG TABLET (FP) PO SCH (17:33)
[2017-12-25] MEDS: SODIUM CHLORIDE 1,000 ML IV SCH (17:34)
[2017-12-25] MEDS: EFAVIRENZ 200 MG CAPSULE PO SCH (17:34)
[2017-12-25] MEDS: EMTRICITABINE 200MG/TENOFOVIR 300MG PO SCH (17:34)
--- NOTE | 2017-12-25 18:13 | DS ---
Physical Examination Vital Signs: Vital Signs Temperature 98.5 F 12/25/17 13:25 Pulse Rate 65 12/25/17 13:59 Respiratory Rate 20 12/25/17 13:59 Blood Pressure 150/77 12/25/17 13:59 O2 Sat by Pulse Oximetry (%) 99 12/25/17 13:59 Findings/Remarks: See progress note for HPI, PE. Labs: CBC, BMP 12/25/17 06:20 12/25/17 06:20 Discharge Summary Reason For Visit: PANCREATITIS, CHEST PAIN Current Active Problems ERIKA (acute kidney injury) (Acute) Chest pain (Acute) Chest pain (Acute) Costochondritis, acute (Acute) Depression (Acute) Insomnia (Acute) Kidney cysts (Acute) Mediastinal lymphadenopathy (Acute) Pancreatitis (Acute) Procedures: Principal: Chest/ Abd/ Pelvis CT scan. Renal US. CXR Hospital Course: Pt came to ER c/o left sided CP, CE were negative, Telemetry monitoring was negative; pt was seen by Cardio (Dr. Monterroso) and considered to have musculoskeletal pain. Pt was noticed to have elevated Lipase, unremarkable pancreas on Abd/ Pelvis CT scan; Pt was seen by GI (Dr. Jim), had EGD + for mid gastritis. Pt's creatinine was elevated at admission and improved with IVF; pt was seen by Renal (Dr. Aguirre), simple renal cyst in right kidney was confirmed by US ( also seen on CT scan. Pt with subcentimeter mediastinal LA, seen by Pulmonary (Dr. Travis); 6 months follow up chest CT scan was recommended. Pt was seen by ID (Dr. Martinez). Pt to be DC'ed home with follow up with her PCP and specialists at [facility]. Condition: Fair - Instructions Diet, Activity, Other Instructions: To see own Primary Medical Doctor within a week. To have Chest CT scan repeated in 6 months ( for follow up on mediastinal LA). To see Endocrinology for thyroid nodule evaluation. To see LOG HANDLING EQUIPMENT OPERATOR for evaluation of uterine masses and vaginal wall mass. To see GI in 1-2 weeks, for follow up. To see Renal doctor in 1-2 weeks, for follow up. To see ID as scheduled. Resume diet. Please return to the emergency department with any new or worsening symptoms or concerns. Please follow up with your demonstrator sewing techniques within the next 24-72 hours. Referrals: Rhoda Phelan [Primary Care Provider] - Disposition: HOME - Home Medications Comprehensive Discharge Medication List: Ambulatory Orders
--- NOTE | 2017-12-26 14:25 | PATH ---
Surgical Pathology Report Patient Name: SANJUANITA APODACA [facility]. Rec. #: [id number] /Age/Gender: 1955 (Age: 62) / F Account: [id number] Location: 4 W TELEMETRY U Taken: 12/25/2017 Received: 12/25/2017 Reported: 12/26/2017 Physicians: Marilee Mary M.D. Specimen(s) Received A: BX DUODENUM B: BX ANTRUM BODY Clinical History Preoperative diagnosis: Epigastric pain Postoperative diagnosis: Gastritis Final Diagnosis A. DUODENUM, SECOND PORTION, BIOPSY: DUODENAL MUCOSA WITHOUT SIGNIFICANT PATHOLOGIC FINDINGS. B. STOMACH, ANTRUM AND BODY, BIOPSY: GASTRIC ANTRAL AND BODY MUCOSA WITH MILD CHRONIC GASTRITIS. IMMUNOHISTOCHEMICAL STAIN FOR H. PYLORI IS NEGATIVE. Electronically Signed Cherise Larson M.D. Gross Description A. Received in formalin, labeled "biopsy duodenum second portion" are 2 farooq, irregular portions of soft tissue measuring 0.1 and 0.2 cm. in greatest dimension. The specimens are submitted in toto in one cassette. B. Received in formalin, labeled "biopsy antrum and body" are 2 farooq, irregular portions of soft tissue measuring 0.2 and 0.3 cm. in greatest dimension. The specimens are submitted in toto in one cassette. 12/25/201712/25/2017
== END 2017-12-25 19:06 | disposition home or self-care (01) | DRG 439 ==
LOC: JER 21:30 → JERBED 12-22 01:37 → UNDOADMOB 12-22 02:05 → JERBED 12-22 02:05 → J4W 12-22 03:54 → OBSVTOIN 12-22 10:04
PROVIDERS: ADMIT Internal Medicine; ATTEND Internal Medicine
PROC: 0DB68ZX Excision of Stomach, Via Natural or Artificial Opening Endoscopic, Diagnostic (ICD-10-PCS; 2017-12-25)
PROC: 0DB98ZX Excision of Duodenum, Via Natural or Artificial Opening Endoscopic, Diagnostic (ICD-10-PCS; principal; 2017-12-25 13:15)
DX: K85.90 Acute pancreatitis without necrosis or infection, unspecified (principal); N17.9 Acute kidney failure, unspecified; M94.0 Chondrocostal junction syndrome [Tietze]; K29.60 Other gastritis without bleeding; I25.10 Atherosclerotic heart disease of native coronary artery without angina pectoris; E78.5 Hyperlipidemia, unspecified; E66.01 Morbid (severe) obesity due to excess calories; Z87.891 Personal history of nicotine dependence; D72.829 Elevated white blood cell count, unspecified; Z79.4 Long term (current) use of insulin; E11.42 Type 2 diabetes mellitus with diabetic polyneuropathy; Z98.61 Coronary angioplasty status; K76.0 Fatty (change of) liver, not elsewhere classified; N28.1 Cyst of kidney, acquired; E11.22 Type 2 diabetes mellitus with diabetic chronic kidney disease; I12.9 Hypertensive chronic kidney disease with stage 1 through stage 4 chronic kidney disease, or unspecified chronic kidney disease; N18.9 Chronic kidney disease, unspecified; R59.0 Localized enlarged lymph nodes; F32.9 Major depressive disorder, single episode, unspecified; G47.00 Insomnia, unspecified; E03.9 Hypothyroidism, unspecified; D47.2 Monoclonal gammopathy; Z21 Asymptomatic human immunodeficiency virus [HIV] infection status; Z68.34 Body mass index [BMI] 34.0-34.9, adult
CPT/HCPCS: 36415; 71045-TC; 71260-TC; 74177-TC; 76705-TC; 76775-TC; 80053; 81003; 81015; 82150; 82550; 82553; 82962; 82977; 83690; 83735; 84080; 84100; 84484; 85025; 85027; 85610; 88305-TC; 93005; 93010; 99283-25; G0378

== ENCOUNTER 2018-04-06 20:37 | Emergency (ER) | payer OTHER ==
[2018-04-06 20:44] VITALS: BP 130/86; PULSE 93; TEMP 98.8; BMI 35.2
--- NOTE | 2018-04-06 20:44 | PDOC ---
Rapid Medical Evaluation Time Seen by Provider: 04/06/18 20:39 Medical Evaluation: Allergies Allergy/AdvReac Type Severity Reaction Status Date / Time amoxicillin Allergy Verified 12/21/17 21:33 metronidazole [From Flagyl] Allergy Verified 12/21/17 21:33 04/06/18 20:39 I have performed a brief in-person evaluation of this patient. The patient presents with a chief complaint of: dizziness Pertinent physical exam findings: EOMI. CN2-12 grossly intact. I have ordered the following: ekg, labs, urine The patient will proceed to the ED for further evaluation. Discharge Disposition - Diagnosis Dizziness - Referrals - Patient Instructions - Post Discharge Activity
[2018-04-06 21:29] LABS: BASO % 0.7 % (0-2.0); EOS % 2.1 % (0-4.5); HEMATOCRIT 37.2 % (32.4-45.2); HEMOGLOBIN 12.4 GM/dL (10.7-15.3); LYMPH % 47.5 % (8-40); MCHC 33.3 g/dl (32.0-36.0); MEAN CELL VOLUME 89.9 fl (80-96); MEAN PLT VOLUME 8.5 fl (7.5-11.1); MONO % 3.3 % (3.8-10.2); NEUT % 46.4 % (42.8-82.8); PLATELET COUNT 338 K/MM3 (134-434); RBC 4.13 M/mm3 (3.60-5.2); RDW 14.9 % (11.6-15.6)
[2018-04-06 21:41] LABS: URINE APPEARANCE CLEAR; URINE BILIRUBIN NEGATIVE (<2.0 mg/dL); URINE COLOR LTYELLOW; URINE GLUCOSE (UA) 1+ (NEGATIVE); URINE KETONE NEGATIVE (NEGATIVE); URINE LEUK ESTERASE TRACE (NEGATIVE); URINE NITRITE NEGATIVE (NEGATIVE); URINE UROBILINOGEN NEGATIVE mg/dL (0.2-1.0)
[2018-04-06 21:47] LABS: EPI CELLS RARE /HPF (FEW); URINE BACTERIA RARE /hpf (NONE SEEN); URINE PROTEIN 3+ (NEGATIVE)
[2018-04-06 21:59] LABS: ALBUMIN 3.7 g/dl (3.4-5.0); ANION GAP 6 (8-16); BILIRUBIN,TOTAL 0.2 mg/dL (0.2-1.0); BLOOD UREA NITROGEN 24 mg/dL (7-18); CALCIUM 9.6 mg/dL (8.5-10.1); CHLORIDE 109 mmol/L (98-107); CO2 26 mmol/L (21-32); CREATININE 1.4 mg/dL (0.55-1.02); GLUCOSE,RANDOM 180 mg/dL (74-106); POTASSIUM 4.6 mmol/L (3.5-5.1); SGOT/AST 14 U/L (15-37); SGPT/ALT 15 U/L (12-78); SODIUM 141 mmol/L (136-145); TOT PROT 8.4 g/dl (6.4-8.2)
[2018-04-06 22:01] LABS: ALK PHOS 123 U/L (45-117)
[2018-04-06] MEDS ORDERED: SODIUM CHLORIDE 0.9% 500 ML INFUS.BAG IV ONE (22:19)
--- NOTE | 2018-04-06 23:29 | PDOC ---
History of Present Illness - General History Source: Patient, Old Records Exam Limitations: No Limitations - History of Present Illness Initial Comments: 04/07/18 03:10 Patient is a 62 year old female with a significant past medical history of Diabetes, HIV, HTN, Hyperlipidemia, who presents to the ED with complaints of of lightheadedness that began this morning. Patient reports waking up this morning when she began to experience sudden onset of lightheaded. She reports taking her blood pressure shortly after waking up, stating it was found to be 205/195. Patient reports feeling continuous lightheaded throughout the rest of the day. She reports experiencing associated symptoms of decreased appetite, and head pain. Patient stated taking her blood pressure again after attempting to eat with it being 195/105, prompting her to come into the ED for further evaluation. Denies chest pain, Denies nausea, vomiting. Denies contact with sick individuals , out of state travelling. Denies dysuria, hematuria. Denies constipation, diarrhea. Denies fevers, chills. Denies fever, chills Allergies: Amoxicillin, Metronidazole Social history: Lives alone. Former smoker. No alcohol. No illicit drugs. Surgical history: Appendectomy (complicated- per pt) PMD: Not on staff. <Kenyon Vieyra - Last Filed: 04/07/18 03:10> <Natalie Vidal - Last Filed: 04/08/18 02:25> - General Chief Complaint: Blood Pressure Problem Stated Complaint: HYPERTENSION Time Seen by Provider: 04/06/18 20:39 Past History <Kenyon Vieyra - Last Filed: 04/07/18 03:10> - Past Medical History Anemia: No Asthma: Yes Cancer: No Cardiac Disorders: Yes CVA: No COPD: No CHF: No Dementia: No Diabetes: Yes GI Disorders: No Disorders: No HTN: Yes Hypercholesterolemia: Yes Liver Disease: No Seizures: No Thyroid Disease: Yes - Surgical History Abdominal Surgery: Yes Appendectomy: Yes Cardiac Surgery: Yes Cholecystectomy: No Lung Surgery: No Neurologic Surgery: No Orthopedic Surgery: No - Immunization History Immunization Up to Date: Yes - Suicide/Smoking/Psychosocial Hx Smoking Status: No Smoking History: Never smoked Have you smoked in the past 12 months: No Number of Cigarettes Smoked Daily: 0 If you are a former smoker, when did you quit?: 0 Information on smoking cessation initiated: No Hx Alcohol Use: No Drug/Substance Use Hx: No Substance Use Type: None Hx Substance Use Treatment: No <Natalie Vidal - Last Filed: 04/08/18 02:25> - Past Medical History Allergies/Adverse Reactions: Allergies Allergy/AdvReac Type Severity Reaction Status Date / Time amoxicillin Allergy Verified 04/06/18 20:44 metronidazole [From Flagyl] Allergy Verified 04/06/18 20:44 Home Medications: Ambulatory Orders Aspirin [ASA -] 81 mg PO DAILY 12/18/15 Efavirenz/Emtricitab/Tenofovir [Atripla Tablet -] 1 tab PO DAILY 12/18/15 Hydrochlorothiazide 25 mg PO DAILY 12/18/15 Insulin Glargine,Hum.rec.anlog [Lantus Solostar PEN -] 45 units SQ HS 12/18/15 Ziprasidone HCl [Geodon] 40 mg PO DAILY 01/06/16 Lisinopril [Prinivil] 20 mg PO DAILY 06/01/17 Citalopram Hydrobromide [Celexa -] 40 mg PO DAILY tablet 12/25/17 Pantoprazole Sodium [Protonix -] 40 mg PO DAILY #14 tablet.ec MDD 1 12/25/17 Zolpidem Tartrate [Ambien] 10 mg PO HS PRN tablet MDD 1 12/25/17 Review of Systems - Review of Systems Able to Perform ROS?: Yes Comments:: 04/07/18 03:10 GENERAL/CONSTITUTIONAL: No fever or chills. No weakness. HEAD, EYES, EARS, NOSE AND THROAT: No change in vision. No ear pain or discharge. No sore throat. CARDIOVASCULAR: No chest pain or shortness of breath. RESPIRATORY: No cough, wheezing, or hemoptysis. GASTROINTESTINAL: No nausea, vomiting, diarrhea or constipation. GENITOURINARY: No dysuria, frequency, or change in urination. MUSCULOSKELETAL: No joint or muscle swelling or pain. No neck or back pain. SKIN: No rash NEUROLOGIC: +Lightheadedness. +Headache. No vertigo, loss of consciousness, or change in strength/sensation. ENDOCRINE: No increased thirst. No abnormal weight change. HEMATOLOGIC/LYMPHATIC: No anemia, easy bleeding, or history of blood clots. ALLERGIC/IMMUNOLOGIC: No hives or skin allergy. <Kenyon Vieyra - Last Filed: 04/07/18 03:10> *Physical Exam - Vital Signs Last Vital Signs Temp Pulse Resp BP Pulse Ox 98.8 F 93 H 19 130/86 100 04/06/18 20:40 04/06/18 20:40 04/06/18 20:40 04/06/18 20:40 04/06/18 20:40 - Physical Exam Comments: 04/07/18 03:10 GENERAL: Awake, alert, and fully oriented, in no acute distress HEAD: No signs of trauma EYES: PERRLA, EOMI, sclera anicteric, conjunctiva clear ENT: +Missing multiple teeth. +Bridge of nose depression. Auricles normal inspection, hearing grossly normal, nares patent, oropharynx clear without exudates. Moist mucosa NECK: Normal ROM, supple, no lymphadenopathy, JVD, or masses LUNGS: Breath sounds equal, clear to auscultation bilaterally. No wheezes, and no crackles HEART: +Borderline tachycardia to 92. Regular rate and rhythm, normal S1 and S2, no murmurs, rubs or gallops ABDOMEN: +Minimal gassy pain. Soft, nontender, normoactive bowel sounds. No guarding, no rebound. No masses EXTREMITIES: Normal range of motion, no edema. No clubbing or cyanosis. No cords, erythema, or tenderness NEUROLOGICAL: Cranial nerves II through XII grossly intact. Normal speech, normal gait SKIN: Warm, Dry, normal turgor, no rashes or lesions noted. <Kenyon Vieyra - Last Filed: 04/07/18 03:10> - Vital Signs Last Vital Signs Temp Pulse Resp BP Pulse Ox 98.8 F 93 H 19 130/86 100 04/06/18 20:40 04/06/18 20:40 04/06/18 20:40 04/06/18 20:40 04/06/18 20:40 <Natalie Vidal - Last Filed: 04/08/18 02:25> Heart Score/ECG Review - ECG Intrepretation Comment:: 04/07/18 02:41 Completed @23:08:40 Normal Sinus rhythm Left axis Deviation Moderate voltage criteria for LVH, may be normal variant Nonspecific T wave abnormality Abnormal ECG Vent. rate OR interval 148 ms QRS duration 76 ms <Kenyon Vieyra - Last Filed: 04/07/18 03:10> ED Treatment Course - LABORATORY CBC & Chemistry Diagram: 04/06/18 21:12 04/06/18 21:12 - ADDITIONAL ORDERS Additional order review: Laboratory Results 04/06/18 04/06/18 04/06/18 21:34 21:12 21:12 PT with INR 12.40 INR 1.10 Sodium Potassium Chloride Carbon Dioxide Anion Gap BUN Creatinine Creat Clearance w eGFR Random Glucose Calcium Magnesium 1.8 Total Bilirubin AST ALT Alkaline Phosphatase Creatine Kinase Creatine Kinase Index CK-MB (CK-2) Troponin I Total Protein Albumin Urine Color Ltyellow Urine Appearance Clear Urine pH 7.0 Ur Specific [place] 1.008 Urine Protein 3+ H Urine Glucose (UA) 1+ H Urine Ketones Negative Urine Blood 1+ H Urine Nitrite Negative Urine Bilirubin Negative Urine Urobilinogen Negative Ur Leukocyte Esterase Trace Urine WBC (Auto) 6 Urine RBC (Auto) 6 Ur Epithelial Cells Rare Urine Bacteria Rare 04/06/18 21:12 PT with INR INR Sodium 141 Potassium 4.6 Chloride 109 H Carbon Dioxide 26 Anion Gap 6 L BUN 24 H Creatinine 1.4 H Creat Clearance w eGFR 38.10 Random Glucose 180 H Calcium 9.6 Magnesium Total Bilirubin 0.2 D AST 14 L ALT 15 Alkaline Phosphatase 123 H Creatine Kinase 169 Creatine Kinase Index 2.3 CK-MB (CK-2) 3.950 H Troponin I < 0.02 Total Protein 8.4 H Albumin 3.7 Urine Color Urine Appearance Urine pH Ur Specific [place] Urine Protein Urine Glucose (UA) Urine Ketones Urine Blood Urine Nitrite Urine Bilirubin Urine Urobilinogen Ur Leukocyte Esterase Urine WBC (Auto) Urine RBC (Auto) Ur Epithelial Cells Urine Bacteria 04/06/18 21:12 RBC 4.13 D MCV 89.9 MCHC 33.3 RDW 14.9 MPV 8.5 Neutrophils % 46.4 Lymphocytes % 47.5 H Monocytes % 3.3 L Eosinophils % 2.1 Basophils % 0.7 - Medications Given in the ED: ED Medications Discontinued Medications Generic Name Dose Route Start Last Admin Trade Name Freq PRN Reason Stop Dose Admin Sodium Chloride 500 ml 04/06/18 22:19 04/06/18 22:58 Normal Saline - IV 04/06/18 22:20 500 ml ONCE ONE Administration <Kenyon Vieyra - Last Filed: 04/07/18 03:10> - LABORATORY CBC & Chemistry Diagram: 04/06/18 21:12 04/06/18 21:12 - ADDITIONAL ORDERS Additional order review: Laboratory Results 04/06/18 04/06/18 04/06/18 21:34 21:12 21:12 Sodium 141 Potassium 4.6 Chloride 109 H Carbon Dioxide 26 Anion Gap 6 L BUN 24 H Creatinine 1.4 H Creat Clearance w eGFR 38.10 Random Glucose 180 H Calcium 9.6 Magnesium 1.8 Total Bilirubin 0.2 D AST 14 L ALT 15 Alkaline Phosphatase 123 H Creatine Kinase 169 Creatine Kinase Index 2.3 CK-MB (CK-2) 3.950 H Troponin I < 0.02 Total Protein 8.4 H Albumin 3.7 Urine Color Ltyellow Urine Appearance Clear Urine pH 7.0 Ur Specific [place] 1.008 Urine Protein 3+ H Urine Glucose (UA) 1+ H Urine Ketones Negative Urine Blood 1+ H Urine Nitrite Negative Urine Bilirubin Negative Urine Urobilinogen Negative Ur Leukocyte Esterase Trace Urine WBC (Auto) 6 Urine RBC (Auto) 6 Ur Epithelial Cells Rare Urine Bacteria Rare 04/06/18 21:12 RBC 4.13 D MCV 89.9 MCHC 33.3 RDW 14.9 MPV 8.5 Neutrophils % 46.4 Lymphocytes % 47.5 H Monocytes % 3.3 L Eosinophils % 2.1 Basophils % 0.7 - RADIOLOGY Radiology Studies Ordered: Category Date Time Status HEAD CT WITHOUT CONTRAST [CT] Stat CT Scan 04/06/18 22:04 Completed - Medications Given in the ED: ED Medications Discontinued Medications Generic Name Dose Route Start Last Admin Trade Name Freq PRN Reason Stop Dose Admin Sodium Chloride 500 ml 04/06/18 22:19 04/06/18 22:58 Normal Saline - IV 04/06/18 22:20 500 ml ONCE ONE Administration <Natalie Vidal - Last Filed: 04/08/18 02:25> Medical Decision Making - Medical Decision Making 04/08/18 02:04 Pt is non compliant with her meds and her BP is elevated. No other complaints. She feels better after treatment and she will be discharged and she will follow with PMD. <Natalie Vidal - Last Filed: 04/08/18 02:25> *DC/Admit/Observation/Transfer - Attestations Scribe Attestion: 04/07/18 03:11 Documentation prepared by Kenyon Vieyra, acting as medical doctor md/medical director for Natalie Vidal MD/DO. <Kenyon Vieyra - Last Filed: 04/07/18 03:10> - Discharge Dispostion Decision to Admit order: No <Natalie Vidal - Last Filed: 04/08/18 02:25> Diagnosis at time of Disposition: Dizziness, HTN (hypertension) - Discharge Dispostion Disposition: HOME Condition at time of disposition: Improved - Referrals Referrals: ON STAFF,NOT [Primary Care Provider] - - Patient Instructions Printed Discharge Instructions: How to Monitor Your Blood Pressure at Home - Post Discharge Activity
[2018-04-07 02:34] LABS: INR 1.1 (0.82-1.09); PROTHROMBIN TIME (PATIENT) 12.4 SEC (9.7-13.0)
--- NOTE | 2018-04-10 00:39 | EKG ---
Test Reason : Blood Pressure : / mmHG Vent. Rate : 084 BPM Atrial Rate : 084 BPM P-R Int : 148 ms QRS Dur : 076 ms QT Int : 386 ms P-R-T Axes : 054 -31 042 degrees QTc Int : 456 ms NORMAL SINUS RHYTHM LEFT AXIS DEVIATION MODERATE VOLTAGE CRITERIA FOR LVH, MAY BE NORMAL VARIANT NONSPECIFIC T WAVE ABNORMALITY ABNORMAL ECG WHEN COMPARED WITH ECG OF 21-DEC-2017 22:38, NO SIGNIFICANT CHANGE WAS FOUND Confirmed by ESAU MAHONEY MD ([id number]) on 04/10/2018 12:39:35 AM Referred By: Confirmed By:ESAU MAHONEY MD
== END 2018-04-06 23:50 | disposition home or self-care (01) ==
LOC: JER 20:37
DX: I10 Essential (primary) hypertension (principal); E11.9 Type 2 diabetes mellitus without complications; Z79.4 Long term (current) use of insulin; E78.00 Pure hypercholesterolemia, unspecified; Z21 Asymptomatic human immunodeficiency virus [HIV] infection status; Z91.14 Patient's other noncompliance with medication regimen
CPT/HCPCS: 36415; 70450-TC; 80053; 81003; 81015; 82550; 82553; 83735; 84484; 85025; 85610; 93005; 93010; 99283-25

== ENCOUNTER 2019-11-26 20:50 | Inpatient (IN) | payer OTHER ==
--- NOTE | 2019-11-26 21:35 | PDOC ---
History of Present Illness - General Chief Complaint: Constipation Stated Complaint: ABD PAIN - History of Present Illness Initial Comments: The pt is a 64F w/ a history of T2DM, HIV, HTN, HLD, history of bowel obstruction, constipation, recent UTI who presents for evaluation of constipation. The pt states her last BM was Monday (3 days ago). Pt tolerating PO, denies N/V, fevers. Endorses recent UTI treated with Ciprofloxacin. She reports lower abdominal pain that is achy, non-radiating, waxes/wanes, is worse with pressure, and not alleviated by anything she can identify. Pt states she follow up at [facility] for HIV, reports undetectable viral load, CD4 count reportedly [id number] 11/26/19 21:46 Past History - Past Medical History Allergies/Adverse Reactions: Allergies Allergy/AdvReac Type Severity Reaction Status Date / Time amoxicillin Allergy Verified 11/26/19 21:36 metronidazole [From Flagyl] Allergy Verified 11/26/19 21:36 Home Medications: Ambulatory Orders Hydrochlorothiazide 25 mg PO DAILY 12/18/15 Citalopram Hydrobromide [Celexa -] 40 mg PO DAILY tablet 12/25/17 Pantoprazole Sodium [Protonix -] 40 mg PO DAILY #14 tablet.ec MDD 1 12/25/17 Zolpidem Tartrate [Ambien] 10 mg PO HS PRN tablet MDD 1 12/25/17 Brimonidine Tartrate/Timolol [Combigan Eye Drops] 5 ml OU BID 11/27/19 Carvedilol [Coreg -] 3.125 mg PO BID 11/27/19 Clopidogrel Bisulfate [Clopidogrel] 75 mg PO DAILY 11/27/19 Doxepin HCl [Sinequan -] 100 mg PO DAILY 11/27/19 Dulaglutide [Trulicity] 1.5 mg SQ DAILY 11/27/19 Furosemide [Lasix -] 20 mg PO BID 11/27/19 Insulin Glargine,Hum.rec.anlog [Basaglar Kwikpen U-100] 50 unit SQ AM 11/27/19 Levothyroxine [Synthroid -] 50 mcg PO DAILY 11/27/19 Rosuvastatin [Crestor -] 20 mg PO HS 11/27/19 Travoprost [Travatan Z] 5 ml OU HS 11/27/19 Anemia: No Asthma: Yes Cancer: No Cardiac Disorders: Yes CVA: No COPD: No CHF: No Dementia: No Diabetes: Yes GI Disorders: No Disorders: No HTN: Yes Hypercholesterolemia: Yes Liver Disease: No Seizures: No Thyroid Disease: Yes - Surgical History Abdominal Surgery: Yes Appendectomy: Yes Cardiac Surgery: Yes Cholecystectomy: No Lung Surgery: No Neurologic Surgery: No Orthopedic Surgery: No - Immunization History Immunization Up to Date: Yes - Psycho Social/Smoking Cessation Hx Smoking Status: No Smoking History: Never smoked Have you smoked in the past 12 months: No Number of Cigarettes Smoked Daily: 0 If you are a former smoker, when did you quit?: 0 Hx Alcohol Use: No Drug/Substance Use Hx: No Substance Use Type: None Hx Substance Use Treatment: No Review of Systems - Review of Systems Able to Perform ROS?: Yes Comments:: GENERAL/CONSTITUTIONAL: No fever or chills. No weakness HEAD, EYES, EARS, NOSE AND THROAT: No change in vision. No change in hearing. No sore throat CARDIOVASCULAR: No chest pain or shortness of breath RESPIRATORY: Denies cough, hemoptysis GASTROINTESTINAL: No nausea, vomiting, diarrhea GENITOURINARY: +frequency; denies dysuria/hematuria MUSCULOSKELETAL: No joint or muscle swelling or pain. No neck or back pain SKIN: No rash NEUROLOGIC: No headache, vertigo, loss of consciousness, or change in strength/ sensation ENDOCRINE: No increased thirst. No abnormal weight change HEMATOLOGIC/LYMPHATIC: No anemia, easy bleeding, or history of blood clots ALLERGIC/IMMUNOLOGIC: No hives or skin allergy 11/26/19 21:34 Is the patient limited Venezuelan proficient: No *Physical Exam - Vital Signs Initial Vital Signs Temp Pulse Resp BP Pulse Ox 98.4 F 112 H 20 103/77 98 11/26/19 21:15 11/26/19 21:15 11/26/19 21:15 11/26/19 21:15 11/26/19 21:15 11/26/19 21:59 - Physical Exam GENERAL: Awake, alert, and oriented to person/place/time, in no acute distress HEAD: No signs of trauma, normocephalic, atraumatic EYES: PERRLA, EOMI, sclera anicteric, conjunctiva clear ENT: Hearing grossly normal, nares patent, oropharynx clear without exudates. No uvular deviation. Moist mucosa LUNGS: No distress, speaks in full sentences, clear to auscultation bilaterally HEART: Regular rate and rhythm, normal S1 and S2, no murmurs appreciated, peripheral pulses normal and equal bilaterally ABDOMEN: Soft, protuberant, inferior TTP w/o rebound or guarding, increased bowel sounds EXTREMITIES: Normal inspection, Normal range of motion, no edema. No clubbing or cyanosis NEUROLOGICAL: Cranial nerves II through XII grossly intact. Normal speech, normal gait, no focal sensorimotor deficits SKIN: Warm, Dry 11/26/19 21:34 ED Treatment Course - LABORATORY CBC & Chemistry Diagram: 11/27/19 01:26 11/26/19 22:20 - RADIOLOGY Radiograph Interpretation: THIS IS A PRELIMINARY REPORT FROM [facility] [employer] DATE OF SERVICE: 2019-11-26 23:49:33 EXAM: CT ABDOMEN AND PELVIS WITH CONTRAST 1.1 cm indeterminate cortical hypodensity mid left kidney (axial image 70, for example), advise ultrasound correlation. Additonal small hypodensities bilateral kidneys probably represent cysts. Large feces rectosigmoid colon, probably constipation. No bowel obstruction or inflammation. Diverticulosis colon. No free fluid or free air. Normal appendix. Shallow lobulated periumbilical ventral hernia containing fat and a small portion of cecum. Unremarkable liver, spleen, stomach, pancreas. Dilated gallbladder, which can be seen with fasting state. Presacral edema, nonspecific. Leiomyomatous uterus. 1.2 cm cystic structure lower left vaginal region, possibly a Bartholin cyst. 11/27/19 01:42 Medical Decision Making - Medical Decision Making The pt is a 64F w/ a history of T2DM, HIV, HTN, HLD, history of bowel obstruction, constipation, recent UTI who presents for evaluation of constipation. ED Course Labs sent CT A&P CT w/ evidence of heavy stool burden, no evidence of infection or obstruction Results discussed with patient and copy of prelim read provided Lytes overall unremarkable LFTs wnl No ERIKA CBC pending 11/27/19 01:43 Tachycardia and Leukocytosis noted Pt given 1L IVF Pt giving urine sample 11/27/19 04:24 UA w/o evidence of UTI Plan for admission for dehydration Pt signed out to [facility] Admitting 11/27/19 06:42 Discharge - Discharge Information Problems reviewed: Yes Clinical Impression/Diagnosis: Dehydration Constipation Qualifiers: Constipation type: unspecified constipation type Qualified Code(s): K59.00 - Constipation, unspecified Leukocytosis Qualifiers: Leukocytosis type: unspecified Qualified Code(s): D72.829 - Elevated white blood cell count, unspecified Condition: Fair - Admission No - Follow up/Referral - Patient Discharge Instructions - Post Discharge Activity
--- NOTE | 2019-11-26 22:26 | PDOC ---
Documentation entered by eTresa Garg SCRIBE, acting as scribe for Elizabeth Baires MD. Elizabeth Baires MD: This documentation has been prepared by the darwinibe, Teresa Garg SCRIBE, under my direction and personally reviewed by me in its entirety. I confirm that the documentation accurately reflects all work, treatment, procedures, and medical decision making performed by me. Attending Attestation - Resident Resident Name: Ramon Zavala - ED Attending Attestation I have performed the following: I have examined & evaluated the patient, The case was reviewed & discussed with the resident, I agree w/resident's findings & plan, Exceptions are as noted - HPI HPI: 11/26/19 22:07 64-year-old female presents because she has not had a bowel movement since Monday after multiple attempts with stool softeners and cathartics. She is tried mag citrate and MiraLAX with no success. She states that she typically does not have a problem with constipation. - Physicial Exam PE: 11/26/19 22:20 64 yo female with c/o constipaiyon head ncat face midface injury(old scarring)) neck supple lungs cta b/l cvs [id number] abdomen protuberant, no rebound, hyperactive BS skin warm and dry neuro axox3,moving All extremites 11/27/19 01:38 - Medical Decision Making 11/26/19 22:30 Past medical history diagnosed with HIV 07/31, reports undetectable viral loads and is followed by infectious disease at [facility] Type 2 diabetes, hypertension hyperlipidemia 11/26/19 22:57 11/27/19 01:38 ct scan was done ct scan shows large stool burden, normal appemdix,no sbo plan will start with enemas
[2019-11-26 23:25] LABS: ALBUMIN 3.2 g/dl (3.4-5.0); BILIRUBIN,TOTAL 0.3 mg/dL (0.2-1); BLOOD UREA NITROGEN 32.5 mg/dL (7-18); CREATININE 1.2 mg/dL (0.55-1.3); POTASSIUM 5.2 mmol/L (3.5-5.1); TOT PROT 7.8 g/dl (6.4-8.2)
[2019-11-27] MEDS ORDERED: MINERAL OIL ENEMA 133 ML ENEMA PR ONE (00:16)
[2019-11-27 01:42] LABS: BASO % 1.3 % (0-2.0); HEMATOCRIT 47.3 % (32.4-45.2); HEMOGLOBIN 15.7 GM/dL (10.7-15.3); MCH 29.6 pg (25.7-33.7); MCHC 33.2 g/dl (32.0-36.0); MEAN PLT VOLUME 9.2 fl (7.5-11.1); MONO % 3.8 % (3.8-10.2); NEUT % 49.9 % (42.8-82.8); RBC 5.31 M/mm3 (3.60-5.2); RDW 14.4 % (11.6-15.6); WHITE BLOOD COUNT 24.5 K/mm3 (4.0-10.0)
[2019-11-27] MEDS ORDERED: SODIUM CHLORIDE 0.9% 500 ML INFUS.BAG IV ONE (02:03)
[2019-11-27 04:29] LABS: PLATELET COUNT 273 K/MM3 (134-434)
[2019-11-27 04:31] LABS: PLATELET ESTIMATE ADEQUATE
[2019-11-27 04:56] LABS: EPI CELLS 3.7 /HPF (0-5/HPF); HYALINE CASTS 4 /lpf (0-8); URINE APPEARANCE CLEAR; URINE BACTERIA 14.1 /hpf (NEGATIVE); URINE BILIRUBIN NEGATIVE (NEGATIVE); URINE COLOR YELLOW; URINE GLUCOSE (UA) 1+ (NEGATIVE); URINE KETONE NEGATIVE (NEGATIVE); URINE LEUK ESTERASE NEGATIVE (NEGATIVE); URINE NITRITE NEGATIVE (NEGATIVE); URINE PROTEIN 3+ (NEGATIVE); URINE RBC 11 /hpf (0-4); URINE UROBILINOGEN 0.2 mg/dL (0.2-1.0)
--- NOTE | 2019-11-27 05:03 | PN ---
Teaching Attending Note Name of Resident: Rachele Caldwell ATTENDING PHYSICIAN STATEMENT I saw and evaluated the patient. I reviewed the resident's note and discussed the case with the resident. I agree with the resident's findings and plan as documented. SUBJECTIVE: Patient is a 64 year old woman with a PMH of NIDDM, HIV disease, HTN, HLD, Appendectomy, Depression, Renal cysts, Bowel obstruction, Constipation and Recent UTI who presents for evaluation of constipation. Patient states her last bowel movement was Monday (3 days ago). She reports associated lower abdominal pain that is achy, non-radiating, waxes/wanes, is worse with pressure , and not alleviated by anything she can identify. Tolerating oral intake and denies nausea, fever, chills, vomiting, headache, chest pain, dizziness, SOB, palpitations or dysuria, Recently had a UTI and was treated with Ciprofloxacin. Remote history of crack/cocaine use. Follows up at [facility] for HIV care, and reports undetectable viral load [place] [id number]. OBJECTIVE: Alert Vital Signs Period Temp Pulse Resp BP Sys/Isbell Pulse Ox Last 24 Hr 98.4 F-98.6 F 88-112 18-20 103-129/77-85 93-98 HEENT: No Jaundice, eye redness or discharge, PERRLA, EOMI. Normocephalic, atraumatic. External ears are normal and hearing is grossly intact. No nasal discharge. Neck: Supple, nontender. No palpable adenopathy or thyromegaly. No JVD Chest: Good effort. Clear to auscultation and percussion. Heart: Regular. No S3, rub or murmur Abdomen: Not distended, soft, suprapubic tenderness and no HSM. No rebound or guarding. Normal bowel sounds. Ext: Peripheral pulses intact. No leg edema. Skin: Warm and dry. No petechiae, rash or ecchymosis. Neuro: Alert. Oriented x3. CN 2-12 grossly intact. Sensation grossly intact in all four extremities and DTR are symmetric. Psych: Appropriate mood and affect. Good insight. Home Medications Medication Instructions Recorded Aspirin [ASA -] 81 mg PO DAILY 12/18/15 Efavirenz/Emtricitab/Tenofovir 1 tab PO DAILY 12/18/15 [Atripla Tablet -] Hydrochlorothiazide 25 mg PO DAILY 12/18/15 Insulin Glargine,Hum.rec.anlog 45 units SQ HS 12/18/15 [Lantus Solostar PEN -] Ziprasidone HCl [Geodon] 40 mg PO DAILY 01/06/16 Lisinopril [Prinivil] 20 mg PO DAILY 06/01/17 Citalopram Hydrobromide [Celexa -] 40 mg PO DAILY tablet 12/25/17 Pantoprazole Sodium [Protonix -] 40 mg PO DAILY #14 tablet.ec MDD 1 12/25/17 Zolpidem Tartrate [Ambien] 10 mg PO HS PRN tablet MDD 1 12/25/17 Abnormal Lab Results 11/26/19 11/27/19 11/27/19 22:20 01:26 04:38 WBC 24.5 H RBC 5.31 H Hgb 15.7 H Hct 47.3 H D Absolute Neuts (auto) 12.2 H Neutrophils % (Manual) 37.0 L Lymphocytes % 44.0 H Lymphocytes % (Manual) 50.0 H Sodium 133 L Potassium 5.2 H Anion Gap 5 L BUN 32.5 H Random Glucose 239 H Alkaline Phosphatase 145 H Albumin 3.2 L Ur Specific [place] 1.036 H Urine Protein 3+ H Urine Glucose (UA) 1+ H Urine Blood 1+ H ASSESSMENT AND PLAN: 1. Incompletely treated UTI?/Constipation - Got IV NS and Fleet mineral oil enema in the ER. Will treat with IV Levofloxacin for incompletely treated UTI pending urine culture. Consult ID. CXR shows cardiomegaly, poor inspiration and unfolded aorta. Will continue on Miralax bid, IV NS and liberal oral fluid intake. Consult GI - could she have colitis underlying the constipation? CT scan of abdomen/pelvis with IV contrast showed "1.1 cm indeterminate cortical hypodensity mid left kidney (axial image 70, for example), advise ultrasound correlation. Additonal small hypodensities bilateral kidneys probably represent cysts. Large feces rectosigmoid colon, probably constipation. No bowel obstruction or inflammation. Diverticulosis colon. No free fluid or free air. Normal appendix. Shallow lobulated periumbilical ventral hernia containing fat and a small portion of cecum. Unremarkable liver, spleen, stomach, pancreas. Dilated gallbladder, which can be seen with fasting state. Presacral edema, nonspecific. Leiomyomatous uterus. 1.2 cm cystic structure lower left vaginal region, possibly a Bartholin cyst." Mild hyponatremia likely due to HCTZ and mild hyperkalemia likely due to hyperglycemia/lisinopril/type 4 RTA. Will strive for euglycemia and give IV NS to enhance K+ excretion. EKG shows NSR with no significant ST-T wave changes. Will continue comprehensive care for all of patients comorbid conditions including HAART for HIV disease 2. Hypoalbuminemia - Possibly due to combined effects of proteinuriamalnutrition and inflammation associated with comorbid chronic conditions. Will ensure adequate dietary protein intake and also consult quality assurance assessor. 3. Uncontrolled DM For now, we will hold the home diabetes drugs and implement sliding scale insulin regimen. Provide comprehensive diabetes care with patient teaching and counseling about the importance of adherence to prescribed diabetes regimen, euglycemia, eye care and foot care. 4. CKD - Has proteinuria and multiple risk factors for CKD. Likely has superimposed dehydration. Will check CPK, hydrate and monitor urine output. Will consult nephrology and avoid nephrotoxic agents such as NSAIDS, aminoglycosides, contrast dyes and certain Alternative medicine products. 5. Obesity Counseled on the risks associated with obesity. Will provide patient all the necessary assistance, counseling and positive reinforcement to facilitate weight loss. Consult quality assurance assessor. 6. Hypertension - Restart suitable outpatient antihypertensive drugs when clinically appropriate. Revise regimen to ensure [id number] excellent BP control and marriage and family counselor patient on the injurious effects of uncontrolled hypertension. Nonpharmacologic measures to control hypertension like weight loss , salt restriction and exercise discussed. Importance of adherence to treatment regimen and attainment of normotension emphasized. 7 DVT prophylaxis - Heparin 5000u sq tid. 8. Advance directives - Full code
[2019-11-27 05:49] LABS: URINE WBC 13 /hpf (0-5)
--- NOTE | 2019-11-27 05:56 | HP ---
CHIEF COMPLAINT: Constipation PCP: [facility] HISTORY OF PRESENT ILLNESS: Ms. Gold is a 64 year old female with PMH of HIV, HTN, HLD, CAD s/p stent who presents with constipation x4 days. Patient has been experiencing intermittent lower abdominal cramping for about 2 weeks and constipation since last Monday. She took miralax, docusate, and mag citrate over the weekend with no relief of symptoms. She denies any associated fevers, nausea, vomiting, diarrhea. She states that she normally has regular BMs every other day, no hx of severe constipation or blood in her stool. Patient has had no appetite x1 day to feeling "full and backed up". She has been drinking 6-7 bottles of water each day. Patient also reports urinary symptoms for the past couple weeks. She states that she has the urge to continue urinating after she goes to the bathroom and has difficulty fully emptying her bladder. She was diagnosed with a UTI one week ago and prescribed cipro. She only took the abx for 3 days and discontinued them because her symptoms had improved. Patient's last colonoscopy was 2016, she states that she is due for next scope this year. She has had polyps in the past, so receives colonoscopies every 3 years. No hx of cancer. She follows with infectious disease at [facility] for her HIV. Reports an undetectable viral load and CD4 count of 2500. ER course was notable for: (1) Gave fleet enema --> pt had small BM (2) CTAP: Large feces, no bowel obstruction or inflammation. Diverticulosis colon. Shallow lobulated periumbilical ventral hernia containing fat and small portion of cecum. 1.1cm indeterminate cortical hypodensity mid left kidney. (3) Recent Travel: denies PAST MEDICAL HISTORY: As per HPI PAST SURGICAL HISTORY: Appendectomy, complicated with perforation --> R ovary removed Cardiac stent Social History: Smoking: quit >30 years ago Alcohol: ~2 drinks/month Drugs: hx of crack and heroin use (snorted), last use in 2017 Allergies amoxicillin Allergy (Verified 11/26/19 21:36) metronidazole [From Flagyl] Allergy (Verified 11/26/19 21:36) HOME MEDICATIONS: Home Medications Medication Instructions Recorded Aspirin [ASA -] 81 mg PO DAILY 12/18/15 Efavirenz/Emtricitab/Tenofovir 1 tab PO DAILY 12/18/15 [Atripla Tablet -] Hydrochlorothiazide 25 mg PO DAILY 12/18/15 Insulin Glargine,Hum.rec.anlog 45 units SQ HS 12/18/15 [Lantus Solostar PEN -] Ziprasidone HCl [Geodon] 40 mg PO DAILY 01/06/16 Lisinopril [Prinivil] 20 mg PO DAILY 06/01/17 Citalopram Hydrobromide [Celexa -] 40 mg PO DAILY tablet 12/25/17 Pantoprazole Sodium [Protonix -] 40 mg PO DAILY #14 tablet.ec MDD 1 12/25/17 Zolpidem Tartrate [Ambien] 10 mg PO HS PRN tablet MDD 1 12/25/17 REVIEW OF SYSTEMS CONSTITUTIONAL: Absent: fever, chills, diaphoresis, generalized weakness, malaise, loss of appetite, weight change HEENT: Absent: rhinorrhea, nasal congestion, throat pain, throat swelling, difficulty swallowing, mouth swelling, ear pain, eye pain, visual changes CARDIOVASCULAR: Absent: chest pain, syncope, palpitations, irregular heart rate, lightheadedness , peripheral edema RESPIRATORY: Absent: cough, shortness of breath, dyspnea with exertion, orthopnea, wheezing, stridor, hemoptysis GASTROINTESTINAL: abdominal pain, constipation Absent: abdominal distension, nausea, vomiting, diarrhea, melena, hematochezia GENITOURINARY: urgency Absent: dysuria, frequency, hesitancy, hematuria, flank pain, genital pain MUSCULOSKELETAL: Absent: myalgia, arthralgia, joint swelling, back pain, neck pain SKIN: Absent: rash, itching, pallor HEMATOLOGIC/IMMUNOLOGIC: Absent: easy bleeding, easy bruising, lymphadenopathy, frequent infections ENDOCRINE: Absent: unexplained weight gain, unexplained weight loss, heat intolerance, cold intolerance NEUROLOGIC: Absent: headache, focal weakness or paresthesias, dizziness, unsteady gait, seizure, mental status changes, bladder or bowel incontinence PSYCHIATRIC: Absent: anxiety, depression, suicidal or homicidal ideation, hallucinations. PHYSICAL EXAMINATION Vital Signs - 24 hr 11/26/19 11/27/19 11/27/19 21:15 03:41 03:59 Temperature 98.4 F 98.6 F Pulse Rate 112 H Pulse Rate [ 94 H 88 Right Radial] Respiratory 20 18 Rate Blood Pressure 103/77 Blood Pressure 129/85 [Left Arm] O2 Sat by Pulse 98 93 L 97 Oximetry (%) 11/27/19 05:23 Temperature Pulse Rate Pulse Rate [ Right Radial] Respiratory Rate Blood Pressure Blood Pressure [Left Arm] O2 Sat by Pulse 97 Oximetry (%) GENERAL: Awake, alert, and fully oriented, in no acute distress. HEAD: Normal with no signs of trauma. EYES: Pupils equal, round and reactive to light, extraocular movements intact, sclera anicteric, conjunctiva clear. No lid lag. EARS, NOSE, THROAT: Ears normal, nares patent, oropharynx clear without exudates. Moist mucous membranes. NECK: Normal range of motion, supple without lymphadenopathy, JVD, or masses. LUNGS: Breath sounds equal, clear to auscultation bilaterally. No wheezes, and no crackles. No accessory muscle use. HEART: Regular rate and rhythm, normal S1 and S2 without murmur, rub or gallop. ABDOMEN: Distended, obese but soft, no guarding. Tender in lower quadrants, normoactive bowel sounds, no guarding, no rebound, no masses. No hepatomegaly or splenomegaly. MUSCULOSKELETAL: Normal range of motion at all joints. No bony deformities or tenderness. No CVA tenderness. UPPER EXTREMITIES: 2+ pulses, warm, well-perfused. No cyanosis. No clubbing. No peripheral edema. LOWER EXTREMITIES: 2+ pulses, warm, well-perfused. No calf tenderness. No peripheral edema. NEUROLOGICAL: Cranial nerves II-XII intact. Normal speech. Normal gait. PSYCHIATRIC: Cooperative. Good eye contact. Appropriate mood and affect. SKIN: Warm, dry, normal turgor, no rashes or lesions noted, normal capillary refill. Laboratory Results - last 24 hr CBC, BMP 11/27/19 01:26 11/26/19 22:20 Urine Test Results Urine Color Yellow Urine Appearance Clear Urine pH 7.0 (5.0-8.0) Ur Specific [place] 1.036 (1.010-1.035) H Urine Protein 3+ (NEGATIVE) H Urine Glucose (UA) 1+ (NEGATIVE) H Urine Ketones Negative (NEGATIVE) Urine Blood 1+ (NEGATIVE) H Urine Nitrite Negative (NEGATIVE) Urine Bilirubin Negative (NEGATIVE) Ur Leukocyte Esterase Negative (NEGATIVE) ASSESSMENT/PLAN: Ms. Gold is a 64 year old female with PMH of HIV, HTN, HLD, CAD s/p stent who presents with constipation x4 days with abdominal cramping and urinary symptoms. #Incompletely treated UTI/Constipation Received fleet emema in ED, had small BM CTAP: Large feces, no bowel obstruction or inflammation. Diverticulosis colon. Shallow lobulated periumbilical ventral hernia containing fat and small portion of cecum. 1.1cm indeterminate cortical hypodensity mid left kidney. Treat with saline enema daily and miralax BID. Pt may need discomplaction Complete UTI treatment with IV levaquin Hyponatremia likely 2/2 dehydration and Hctz. Hyperkalemia likely 2/2 hyperglycemia and lisinopril. Will hydrate with IVF and closely monitor electrolytes #CKD Pt has proteinuria and multiple risk factors F/u renal US for evaluation of cysts F/u CPK Nephrology consultation (Dr. Cuello) #HIV Med-rec pt's HIV medications F/u CPK IV hydration #HTN Med-rec pt's BP medications and cont #DM2 Pt states she takes insulin 50units in am, will med-rec and continue Implement ISS TIDAC and FSG monitoring #CAD Cont asa 81mg daily #FEN IV NS @ 100ml/hr Diabetic and sodium-controlled diet #DVT ppx Heparin sq #Dispo Monitor on med-surg ATTENDING PHYSICIAN STATEMENT I saw and evaluated the patient. I reviewed the resident's note and discussed the case with the resident. I agree with the resident's findings and plan as documented. SUBJECTIVE: OBJECTIVE: ASSESSMENT AND PLAN:
[2019-11-27] MEDS ORDERED: SODIUM CHLORIDE 1,000 ML IV SCH ×2 (06:00→06:30)
[2019-11-27 07:45] LABS: BASO % 0.4 % (0-2.0); EOS % 0.5 % (0-4.5); HEMATOCRIT 41.3 % (32.4-45.2); HEMOGLOBIN 13.6 GM/dL (10.7-15.3); LYMPH % 35.4 % (8-40); MCH 29.6 pg (25.7-33.7); MEAN CELL VOLUME 89.7 fl (80-96); MEAN PLT VOLUME 8.7 fl (7.5-11.1); MONO % 4.2 % (3.8-10.2); NEUT % 59.5 % (42.8-82.8); PLATELET COUNT 268 K/MM3 (134-434); RBC 4.61 M/mm3 (3.60-5.2); RDW 13.9 % (11.6-15.6); WHITE BLOOD COUNT 17.2 K/mm3 (4.0-10.0)
[2019-11-27] MEDS: INSULIN SLIDING SCALE (NOVOLOG) 1 VIAL SQ SCH ×3 (07:45→17:39)
[2019-11-27 07:51] LABS: ALBUMIN 2.8 g/dl (3.4-5.0); BILIRUBIN,TOTAL 0.3 mg/dL (0.2-1); BLOOD UREA NITROGEN 31.8 mg/dL (7-18); CREATININE 1.2 mg/dL (0.55-1.3); POTASSIUM 4.4 mmol/L (3.5-5.1); TOT PROT 6.6 g/dl (6.4-8.2)
[2019-11-27] MEDS: HEPARIN NA (PORCINE) 5,000 UNITS/ML 1ML VIAL SQ SCH ×4 (09:22→22:58)
--- NOTE | 2019-11-27 09:59 | HOSP ---
Subjective - Review of Symptoms Events since last encounter: Patient was seen and examined. stated that came in due to having severe constipation, was given multiple agents in ed. that patient had a bowel movement today. Vital Signs Temperature 98.6 F 11/27/19 03:41 Pulse Rate 88 11/27/19 03:59 Respiratory Rate 18 11/27/19 03:41 Blood Pressure 129/85 11/27/19 03:41 O2 Sat by Pulse Oximetry (%) 97 11/27/19 05:23 chest: CTA Heart:S1S2 positive Abdomen: large abdomen, NT CBCD WBC 17.2 K/mm3 (4.0-10.0) H 11/27/19 06:50 RBC 4.61 M/mm3 (3.60-5.2) 11/27/19 06:50 Hgb 13.6 GM/dL (10.7-15.3) 11/27/19 06:50 Hct 41.3 % (32.4-45.2) 11/27/19 06:50 MCV 89.7 fl (80-96) 11/27/19 06:50 MCHC 33.0 g/dl (32.0-36.0) 11/27/19 06:50 RDW 13.9 % (11.6-15.6) 11/27/19 06:50 Plt Count 268 K/MM3 (134-434) 11/27/19 06:50 MPV 8.7 fl (7.5-11.1) 11/27/19 06:50 CMP Sodium 137 mmol/L (136-145) 11/27/19 06:50 Potassium 4.4 mmol/L (3.5-5.1) 11/27/19 06:50 Chloride 103 mmol/L (98-107) 11/27/19 06:50 Carbon Dioxide 28 mmol/L (21-32) 11/27/19 06:50 Anion Gap 5 MMOL/L (8-16) L 11/27/19 06:50 BUN 31.8 mg/dL (7-18) H 11/27/19 06:50 Creatinine 1.2mg/dL (0.55-1.3) 11/27/19 06:50 Random Glucose 220 mg/dL (74-106) H 11/27/19 06:50 Calcium 9.0 mg/dL (8.5-10.1) 11/27/19 06:50 Total Bilirubin 0.3 mg/dL (0.2-1) 11/27/19 06:50 AST 19 U/L (15-37) 11/27/19 06:50 ALT 19 U/L (13-61) 11/27/19 06:50 Alkaline Phosphatase 127 U/L (45-117) H 11/27/19 06:50 Total Protein 6.6 g/dl (6.4-8.2) 11/27/19 06:50 Albumin 2.8 g/dl (3.4-5.0) L 11/27/19 06:50 Current Medications Generic Name Dose Route Start Last Admin Trade Name Freq PRN Reason Stop Dose Admin Heparin Sodium (Porcine) 5,000 unit 11/27/19 07:15 11/27/19 09:22 Heparin - SQ 5,000 unit TID [facility] Administration Sodium Chloride 1,000 mls @ 100 mls/hr 11/27/19 06:30 11/27/19 06:32 Normal Saline - IV 100 mls/hr ASDIR [facility] Administration Insulin Aspart 1 vial 11/27/19 07:00 Novolog Vial Sliding Scale - SQ TIDAC [facility] Protocol Polyethylene Glycol 17 gm 11/27/19 10:00 Miralax (For Daily Use) - PO BID [facility] Home Medications Medication Instructions Recorded Hydrochlorothiazide 25 mg PO DAILY 12/18/15 Citalopram Hydrobromide [Celexa -] 40 mg PO DAILY tablet 12/25/17 Pantoprazole Sodium [Protonix -] 40 mg PO DAILY #14 tablet.ec MDD 1 12/25/17 Zolpidem Tartrate [Ambien] 10 mg PO HS PRN tablet MDD 1 12/25/17 Brimonidine Tartrate/Timolol 5 ml OU BID 11/27/19 [Combigan Eye Drops] Carvedilol [Coreg -] 3.125 mg PO BID 11/27/19 Clopidogrel Bisulfate [Clopidogrel] 75 mg PO DAILY 11/27/19 Doxepin HCl [Sinequan -] 100 mg PO DAILY 11/27/19 Dulaglutide [Trulicity] 1.5 mg SQ DAILY 11/27/19 Furosemide [Lasix -] 20 mg PO BID 11/27/19 Insulin Glargine,Hum.rec.anlog 50 unit SQ AM 11/27/19 [Basaglar Kwikpen U-100] Levothyroxine [Synthroid -] 50 mcg PO DAILY 11/27/19 Rosuvastatin [Crestor -] 20 mg PO HS 11/27/19 Travoprost [Travatan Z] 5 ml OU HS 11/27/19 CTAP: Large feces, no bowel obstruction or inflammation. Diverticulosis colon. Shallow lobulated periumbilical ventral hernia containing fat and small portion of cecum. 1.1cm indeterminate cortical hypodensity mid left kidney. ASSESSMENT AND PLan: 64 year old female with PMH of HIV, HTN, HLD, CAD s/p stent who presents with constipation x4 days with abdominal cramping and urinary symptoms. #Incompletely treated UTI: on IV levaquin, ucx pending #Constipation; s/p fleet emema in ED, had small BM, ivf continue #ARF on CKD:back to nl , nephro consult due to cortical hypodensity mid left kidney, repeat bmp, #HIV: Med-rec pt's HIV medications #HTN: continue coreg/lasix , will dc hctz #DM2: SS with coverage for now, will start 50U levemir for am #CAD: on asa 81mg daily, also plavix will continue DVt px : heparin Physical Examination Vital Signs: Vital Signs Temperature 98.6 F 11/27/19 03:41 Pulse Rate 88 11/27/19 03:59 Respiratory Rate 18 11/27/19 03:41 Blood Pressure 129/85 11/27/19 03:41 O2 Sat by Pulse Oximetry (%) 97 11/27/19 05:23 Labs: CBC, BMP 11/27/19 06:50 11/27/19 06:50
[2019-11-27] MEDS ORDERED: PATIENT'S OWN MEDICATION (NON-FORMULARY) (Brimonidine Tartrate/Timolol [Combigan 0.2%-0.5% OU SCH (10:15)
--- NOTE | 2019-11-27 11:35 | EKG ---
Test Reason : Blood Pressure : / mmHG Vent. Rate : 098 BPM Atrial Rate : 098 BPM P-R Int : 152 ms QRS Dur : 074 ms QT Int : 380 ms P-R-T Axes : 045 -28 039 degrees QTc Int : 485 ms NORMAL SINUS RHYTHM MINIMAL VOLTAGE CRITERIA FOR LVH, MAY BE NORMAL VARIANT NONSPECIFIC T WAVE ABNORMALITY PROLONGED QT ABNORMAL ECG WHEN COMPARED WITH ECG OF 06-APR-2018 23:08, NO SIGNIFICANT CHANGE WAS FOUND Confirmed by ALPHONSE CRUZ, VANGIE ([id number]) on 11/27/2019 11:34:53 AM Referred By: Confirmed By:VANGIE CUNHA MD
--- NOTE | 2019-11-27 11:40 | CONSULT ---
Consult Consult Specialty:: Nephrology Reason for Consultation:: hyperkalemia - History of Present Illness Chief Complaint: abd pain History of Present Illness: Pt is a 64 year old female with pmhx of hiv, htn, hld, constipation and cad who presents with abd pain. She was found to be hyperkalemic and hyponatremic. Her main complaint is constipation and abd discomfort. She denies fevers or chills. She denies dysuria. She denies hematuria. She denies nsaid use. She says she drinks about 7 bottle of water per day to keep hydrated. She denies hx of ckd. - History Source History Provided By: Patient, Medical Record - Past Medical History Cardio/Vascular: Yes: CAD (with stent), HTN, Hyperlipdemia Infectious Disease: Yes: HIV Endocrine: Yes: Diabetes Mellitus (on insulin) - Past Surgical History Past Surgical History: Yes: Appendectomy (complicated- per pt) - Alcohol/Substance Use Hx Alcohol Use: No - Smoking History Smoking history: Never smoked Have you smoked in the past 12 months: No Aproximately how many cigarettes per day: 0 If you are a former smoker, when did you quit?: 0 - Social History ADL: Independent History of Recent Travel: No Home Medications - Allergies Allergies/Adverse Reactions: Allergies Allergy/AdvReac Type Severity Reaction Status Date / Time amoxicillin Allergy Verified 11/26/19 21:36 metronidazole [From Flagyl] Allergy Verified 11/26/19 21:36 - Home Medications Home Medications: Ambulatory Orders Hydrochlorothiazide 25 mg PO DAILY 12/18/15 Citalopram Hydrobromide [Celexa -] 40 mg PO DAILY tablet 12/25/17 Pantoprazole Sodium [Protonix -] 40 mg PO DAILY #14 tablet.ec MDD 1 12/25/17 Zolpidem Tartrate [Ambien] 10 mg PO HS PRN tablet MDD 1 12/25/17 Brimonidine Tartrate/Timolol [Combigan Eye Drops] 5 ml OU BID 11/27/19 Carvedilol [Coreg -] 3.125 mg PO BID 11/27/19 Clopidogrel Bisulfate [Clopidogrel] 75 mg PO DAILY 11/27/19 Doxepin HCl [Sinequan -] 100 mg PO DAILY 11/27/19 Dulaglutide [Trulicity] 1.5 mg SQ DAILY 11/27/19 Furosemide [Lasix -] 20 mg PO BID 11/27/19 Insulin Glargine,Hum.rec.anlog [Basaglar Kwikpen U-100] 50 unit SQ AM 11/27/19 Levothyroxine [Synthroid -] 50 mcg PO DAILY 11/27/19 Rosuvastatin [Crestor -] 20 mg PO HS 11/27/19 Travoprost [Travatan Z] 5 ml OU HS 11/27/19 Family Medical History Family History: Denies Review of Systems - Review of Systems Constitutional: reports: Malaise Eyes: reports: No Symptoms HENT: reports: No Symptoms Neck: reports: No Symptoms Cardiovascular: reports: No Symptoms Respiratory: reports: No Symptoms Gastrointestinal: reports: Constipation Genitourinary: reports: No Symptoms Musculoskeletal: reports: No Symptoms Integumentary: reports: No Symptoms Neurological: reports: No Symptoms Endocrine: reports: No Symptoms Hematology/Lymphatic: reports: No Symptoms Psychiatric: reports: No Symptoms Physical Exam Vital Signs: Vital Signs Temperature 98.6 F 11/27/19 03:41 Pulse Rate 88 11/27/19 03:59 Respiratory Rate 18 11/27/19 03:41 Blood Pressure 129/85 11/27/19 03:41 O2 Sat by Pulse Oximetry (%) 97 11/27/19 05:23 Constitutional: Yes: Calm Eyes: Yes: Conjunctiva Clear HENT: Yes: Atraumatic Neck: Yes: Supple Cardiovascular: Yes: S1, S2 Respiratory: Yes: CTA Bilaterally Gastrointestinal: Yes: Soft Renal/: Yes: Bladder Distention Musculoskeletal: Yes: WNL Edema: No Neurological: Yes: Oriented Psychiatric: Yes: Oriented Labs: CBC, BMP 11/27/19 06:50 11/27/19 06:50 Laboratory Tests 11/26/19 11/27/19 22:20 06:50 Sodium 133 L 137 Potassium 5.2 H 4.4 BUN 31.8 H Creatinine 1.2 1.2 Imaging - Results Ultrasound: Report Reviewed Problem List - Problems (1) Urinary retention Code(s): R33.9 - RETENTION OF URINE, UNSPECIFIED (2) Dehydration Code(s): E86.0 - DEHYDRATION (3) Fecal retention Code(s): K59.00 - CONSTIPATION, UNSPECIFIED Qualifiers: Constipation type: unspecified constipation type Qualified Code(s): K59.00 - Constipation, unspecified (4) ERIKA (acute kidney injury) Code(s): N17.9 - ACUTE KIDNEY FAILURE, UNSPECIFIED Assessment/Plan Current Medications Generic Name Dose Route Start Last Admin Trade Name Stephanie PRN Reason Stop Dose Admin Brimonidine Tartrate 1 drop 11/27/19 22:00 Alphagan 0.2% - OU BID [facility] Carvedilol 3.125 mg 11/27/19 10:45 Coreg - PO BID [facility] Citalopram Hydrobromide 40 mg 11/27/19 10:15 Celexa - PO DAILY [facility] Clopidogrel Bisulfate 75 mg 11/27/19 10:15 Plavix - PO DAILY [facility] Doxepin HCl 100 mg 11/28/19 10:00 Sinequan - PO DAILY [facility] Furosemide 20 mg 11/27/19 14:00 Lasix - PO BIDLASIX [facility] Heparin Sodium (Porcine) 5,000 unit 11/27/19 07:15 11/27/19 09:22 Heparin - SQ 5,000 unit TID [facility] Administration Sodium Chloride 1,000 mls @ 100 mls/hr 11/27/19 06:30 11/27/19 06:32 Normal Saline - IV 11/27/19 23:59 100 mls/hr ASDIR [facility] Administration Insulin Aspart 1 vial 11/27/19 07:00 11/27/19 07:45 Novolog Vial Sliding Scale - SQ Not Given TIDAC [facility] Protocol Latanoprost 1 drop 11/27/19 22:00 Xalatan 0.005% Eye Drops - OU HS [facility] Levothyroxine Sodium 50 mcg 11/27/19 10:45 Synthroid - PO DAILY@0700 [facility] Non-Formulary Medication 1.5 mg 11/28/19 10:00 Dulaglutide [Trulicity] SQ DAILY [facility] Polyethylene Glycol 17 gm 11/27/19 10:00 Miralax (For Daily Use) - PO BID [facility] Rosuvastatin Calcium 20 mg 11/27/19 22:00 Crestor - PO HS [facility] Timolol Maleate 1 drop 11/27/19 22:00 Timoptic 0.5% OU BID [facility] Impression 1. azotemia 2. urinary retention 3. hld 4. HIV 5. cad 6. constipation 7. UTI Plan - place santana - consider urology eval - monitor for post obstructive diuresis - hold next lasix dose - follow cultures
[2019-11-27] MEDS ORDERED: FUROSEMIDE 20 MG TABLET (FP) PO SCH (14:00)
[2019-11-27] MEDS: LEVOTHYROXINE NA 50 MCG TABLET (FP) PO SCH (15:55)
[2019-11-27] MEDS: CLOPIDOGREL BISULFATE 75 MG TABLET (FP) PO SCH (15:55)
[2019-11-27] MEDS: POLYETHYLENE GLYCOL 3350 119 GM BTL PO SCH ×2 (15:55→23:01)
[2019-11-27] MEDS: CITALOPRAM HYDROBROMIDE 20 MG TABLET (FP) PO SCH (15:56)
[2019-11-27] MEDS: CARVEDILOL 3.125 MG TABLET (FP) PO SCH ×2 (15:57→22:55)
[2019-11-27] MEDS ORDERED: INSULIN (NOVOLOG) ASPART 100 UNITS/ML 10ML VIAL ONE (17:44)
[2019-11-27] MEDS: ROSUVASTATIN CA 20 MG TABLET (FP) PO SCH (22:54)
[2019-11-27] MEDS ORDERED: MELATONIN 5 MG TABLETS PO ONE (23:00)
[2019-11-27] MEDS: BRIMONIDINE TARTRATE 0.2% OPHTHALMIC 5 ML BOTTLE OU SCH (23:02)
[2019-11-27] MEDS: TIMOLOL 0.5% OPHTHALMIC SOL 5 ML BOTTLE OU SCH (23:02)
[2019-11-27] MEDS: LATANOPROST 0.005% OPHTH SOLN 2.5ML BOTTLE OU SCH (23:03)
[2019-11-28] MEDS: INSULIN SLIDING SCALE (NOVOLOG) 1 VIAL SQ SCH ×3 (06:43→17:21)
[2019-11-28] MEDS: HEPARIN NA (PORCINE) 5,000 UNITS/ML 1ML VIAL SQ SCH ×3 (06:44→21:26)
[2019-11-28] MEDS: LEVOTHYROXINE NA 50 MCG TABLET (FP) PO SCH (06:46)
--- NOTE | 2019-11-28 08:01 | CON.GI ---
Consult Consult Specialty:: GI Referred by:: Hospitalist Reason for Consultation:: Constipation - History of Present Illness Chief Complaint: Constipation History of Present Illness: 64F admited through [facility] ER for evaluation of constipation. She states that she has chronic constipation, uses MiraLAX intermittently and that her last bowel movement was Monday. She was given enemas and states that she was "finally able to push out the rock" last night. She believes that her last colonoscopy was 3 years ago at [facility] and that she is due to have another this year. Her PMD is Dr. Aguilera and she states he is affiliated with [facility]. He father had colon cancer in his 70's. CT scan of A/P in the ER revealed rectal fecal impaction and umbilical hernia containing portion of transverse colon. - History Source History Provided By: Patient - Past Medical History Cardio/Vascular: Yes: CAD (with stent), HTN, Hyperlipdemia Infectious Disease: Yes: HIV Endocrine: Yes: Diabetes Mellitus (on insulin) - Past Surgical History Past Surgical History: Yes: Appendectomy (complicated- per pt, with right sided oophorectomy and removal of fallopian tube) - Alcohol/Substance Use Hx Alcohol Use: Yes (occasional) History of Substance Use: reports: Cocaine, Heroin - Smoking History Smoking history: Never smoked Have you smoked in the past 12 months: No Aproximately how many cigarettes per day: 0 If you are a former smoker, when did you quit?: 0 - Social History ADL: Independent Place of : [facility] History of Recent Travel: No Home Medications - Allergies Allergies/Adverse Reactions: Allergies Allergy/AdvReac Type Severity Reaction Status Date / Time amoxicillin Allergy Verified 11/26/19 21:36 metronidazole [From Flagyl] Allergy Verified 11/26/19 21:36 - Home Medications Home Medications: Ambulatory Orders Hydrochlorothiazide 25 mg PO DAILY 12/18/15 Citalopram Hydrobromide [Celexa -] 40 mg PO DAILY tablet 12/25/17 Pantoprazole Sodium [Protonix -] 40 mg PO DAILY #14 tablet.ec MDD 1 12/25/17 Zolpidem Tartrate [Ambien] 10 mg PO HS PRN tablet MDD 1 12/25/17 Brimonidine Tartrate/Timolol [Combigan Eye Drops] 5 ml OU BID 11/27/19 Carvedilol [Coreg -] 3.125 mg PO BID 11/27/19 Clopidogrel Bisulfate [Clopidogrel] 75 mg PO DAILY 11/27/19 Doxepin HCl [Sinequan -] 100 mg PO DAILY 11/27/19 Dulaglutide [Trulicity] 1.5 mg SQ DAILY 11/27/19 Furosemide [Lasix -] 20 mg PO BID 11/27/19 Insulin Glargine,Hum.rec.anlog [Basaglar Kwikpen U-100] 50 unit SQ AM 11/27/19 Levothyroxine [Synthroid -] 50 mcg PO DAILY 11/27/19 Rosuvastatin [Crestor -] 20 mg PO HS 11/27/19 Travoprost [Travatan Z] 5 ml OU HS 11/27/19 Family Medical History Family Hx Cancer: Father (colon cancer 72) Family Hx Cardiac Disorders: Mother (: 74: "hrt problems") Other Family History: 1 sister: healthy. 1 son, 1 daughter: healthy Review of Systems - Review of Systems Constitutional: denies: Chills Cardiovascular: denies: Chest Pain Respiratory: denies: SOB Gastrointestinal: reports: Constipation. denies: Abdominal Pain, Diarrhea, Rectal Bleeding, Vomiting, Vomiting Blood Musculoskeletal: denies: Back Pain Physical Exam-GI Vital Signs: Vital Signs Temperature 98.1 F 11/28/19 06:49 Pulse Rate 76 11/28/19 06:49 Respiratory Rate 18 11/28/19 06:49 Blood Pressure 123/82 11/28/19 06:49 O2 Sat by Pulse Oximetry (%) 97 11/27/19 21:00 Constitutional: Yes: Calm Eyes: No: Sclera Icterus Cardiovascular: Yes: Regular Rate and Rhythm. No: Murmur Respiratory: Yes: CTA Bilaterally Gastrointestinal Inspection: Yes: Scars (midline pelvic surgical scar). No: Distention ...Auscultate: Yes: Normoactive Bowel Sounds ...Palpate: Yes: Soft. No: Hepatomegaly, Splenomegaly, Tenderness ...Percussion: No: Tympanitic ...Rectal Exam: Yes: Deferred (deferred by patient) Edema: No (No LE edema) Labs: CBC, BMP 11/27/19 06:50 11/27/19 06:50 Hepatic Panel Total Bilirubin 0.3 mg/dL (0.2-1) 11/27/19 06:50 AST 19 U/L (15-37) 11/27/19 06:50 ALT 19 U/L (13-61) 11/27/19 06:50 Alkaline Phosphatase 127 U/L (45-117) H 11/27/19 06:50 Albumin 2.8 g/dl (3.4-5.0) L 11/27/19 06:50 Imaging - Results Cat Scan: Report Reviewed Problem List - Problems (1) Constipation Assessment/Plan: Likely multifactorial. Sounds like Ms. Gold had a fecal impaction that she was able to pas yesterday Advise: MiraLAX 17g BID Check TSH Glycemic control That she follow-up with her PMD to arrange follow-up at [facility] for colonoscopy Unable to appreciate umbilical hernia on my exam. ? if reduced during a prior examination. Can obtain surgical opinion regarding this ALP mildly elevated on admission: check GGT, Check abdominal US, if it does not appear to be liver / biliary in etiology, exclusion of alternate causes per primary team. Code(s): K59.00 - CONSTIPATION, UNSPECIFIED
[2019-11-28 09:24] LABS: BASO % 0.8 % (0-2.0); EOS % 2.8 % (0-4.5); HEMATOCRIT 37.5 % (32.4-45.2); HEMOGLOBIN 12.5 GM/dL (10.7-15.3); LYMPH % 58.3 % (8-40); MCH 29.9 pg (25.7-33.7); MCHC 33.4 g/dl (32.0-36.0); MEAN CELL VOLUME 89.5 fl (80-96); MEAN PLT VOLUME 8.7 fl (7.5-11.1); MONO % 4.5 % (3.8-10.2); NEUT % 33.6 % (42.8-82.8); PLATELET COUNT 246 K/MM3 (134-434); RBC 4.19 M/mm3 (3.60-5.2); RDW 13.9 % (11.6-15.6)
[2019-11-28] MEDS ORDERED: PT OWN MED DRAWER 7, Y5N ONE (09:52)
[2019-11-28] MEDS ORDERED: DOXEPIN HCL 50 MG CAPSULE PO SCH (10:00)
[2019-11-28] MEDS ORDERED: PATIENT'S OWN MEDICATION (NON-FORMULARY) (Dulaglutide [Trulicity] 1.5 MG) SQ SCH (10:00)
[2019-11-28 10:03] LABS: ALBUMIN 2.6 g/dl (3.4-5.0); BILIRUBIN,TOTAL 0.2 mg/dL (0.2-1); BLOOD UREA NITROGEN 38.5 mg/dL (7-18); CREATININE 1.6 mg/dL (0.55-1.3); MAGNESIUM 2.6 mg/dL (1.8-2.4); PHOSPHOROUS 3.5 mg/dL (2.5-4.9); POTASSIUM 4.5 mmol/L (3.5-5.1); TOT PROT 6.3 g/dl (6.4-8.2)
[2019-11-28] MEDS: DOXEPIN HCL 25 MG CAPSULE PO SCH (10:03)
[2019-11-28] MEDS: CITALOPRAM HYDROBROMIDE 20 MG TABLET (FP) PO SCH (10:03)
[2019-11-28] MEDS: CARVEDILOL 3.125 MG TABLET (FP) PO SCH ×2 (10:03→21:26)
[2019-11-28] MEDS: CLOPIDOGREL BISULFATE 75 MG TABLET (FP) PO SCH (10:03)
[2019-11-28] MEDS: BRIMONIDINE TARTRATE 0.2% OPHTHALMIC 5 ML BOTTLE OU SCH ×2 (10:04→21:28)
[2019-11-28] MEDS: TIMOLOL 0.5% OPHTHALMIC SOL 5 ML BOTTLE OU SCH ×2 (10:04→21:27)
[2019-11-28] MEDS: POLYETHYLENE GLYCOL 3350 119 GM BTL PO SCH ×2 (10:09→21:35)
[2019-11-28 10:40] LABS: ANISOCYTOSIS 0; MACROCYTOSIS 0; PLATELET ESTIMATE NORMAL
--- NOTE | 2019-11-28 14:30 | PN ---
Progress Note, Physician History of Present Illness: Pt seen and examined at bedside. She is awake and alert. She feels that the abd discomfort is improved. - Current Medication List Current Medications: Active Medications Brimonidine Tartrate (Alphagan 0.2% -) 1 drop OU BID [facility] Last Admin: 11/28/19 10:04 Dose: 1 drop Carvedilol (Coreg -) 3.125 mg PO BID [facility] Last Admin: 11/28/19 10:03 Dose: 3.125 mg Citalopram Hydrobromide (Celexa -) 40 mg PO DAILY [facility] Last Admin: 11/28/19 10:03 Dose: 40 mg Clopidogrel Bisulfate (Plavix -) 75 mg PO DAILY [facility] Last Admin: 11/28/19 10:03 Dose: 75 mg Doxepin HCl (Sinequan -) 100 mg PO DAILY [facility] Last Admin: 11/28/19 10:03 Dose: 100 mg Heparin Sodium (Porcine) (Heparin -) 5,000 unit SQ TID [facility] Last Admin: 11/28/19 06:44 Dose: 5,000 unit Insulin Aspart ([facility] Vial Sliding [facility] -) [facility] Last Admin: 11/28/19 11:26 Dose: 8 units Latanoprost (Xalatan 0.005% Eye Drops -) 1 drop OU [facility] Last Admin: 11/27/19 23:03 Dose: 1 drop Levothyroxine Sodium (Synthroid -) 50 mcg PO DAILY@0700 [facility] Last Admin: 11/28/19 06:46 Dose: 50 mcg Non-Formulary Medication (Dulaglutide [Trulicity]) 1.5 mg SQ DAILY [facility] Polyethylene Glycol (Miralax (For Daily Use) -) 17 gm PO BID [facility] Last Admin: 11/28/19 10:09 Dose: 17 grams Rosuvastatin Calcium (Crestor -) 20 mg PO HS [facility] Last Admin: 11/27/19 22:54 Dose: 20 mg Timolol Maleate (Timoptic 0.5%) 1 drop OU BID [facility] Last Admin: 11/28/19 10:04 Dose: 1 drop - Objective Vital Signs: Vital Signs Temperature 98.6 F 11/28/19 10:04 Pulse Rate 80 11/28/19 10:04 Respiratory Rate 18 11/28/19 10:04 Blood Pressure 112/69 11/28/19 10:04 O2 Sat by Pulse Oximetry (%) 97 11/28/19 09:00 Constitutional: Yes: Calm Eyes: Yes: Conjunctiva Clear HENT: Yes: Atraumatic Neck: Yes: Supple Cardiovascular: Yes: S1, S2 Respiratory: Yes: CTA Bilaterally Gastrointestinal: Yes: Normal Bowel Sounds, Soft Genitourinary: Yes: Santana Present Edema: No Neurological: Yes: Oriented Psychiatric: Yes: Oriented Labs: CBC, BMP 11/28/19 08:05 11/28/19 08:05 Problem List - Problems (1) Urinary retention Code(s): R33.9 - RETENTION OF URINE, UNSPECIFIED (2) Dehydration Code(s): E86.0 - DEHYDRATION (3) Fecal retention Code(s): K59.00 - CONSTIPATION, UNSPECIFIED Qualifiers: Constipation type: unspecified constipation type Qualified Code(s): K59.00 - Constipation, unspecified (4) ERIKA (acute kidney injury) Code(s): N17.9 - ACUTE KIDNEY FAILURE, UNSPECIFIED Assessment/Plan Current Medications Generic Name Dose Route Start Last Admin Trade Name Freq PRN Reason Stop Dose Admin Brimonidine Tartrate 1 drop 11/27/19 22:00 11/28/19 10:04 Alphagan 0.2% - OU 1 drop BID [facility] Administration Carvedilol 3.125 mg 11/27/19 10:45 11/28/19 10:03 Coreg - PO 3.125 mg BID [facility] Administration Citalopram Hydrobromide 40 mg 11/27/19 10:15 11/28/19 10:03 Celexa - PO 40 mg DAILY [facility] Administration Clopidogrel Bisulfate 75 mg 11/27/19 10:15 11/28/19 10:03 Plavix - PO 75 mg DAILY [facility] Administration Doxepin HCl 100 mg 11/28/19 10:00 11/28/19 10:03 Sinequan - PO 100 mg DAILY [facility] Administration Heparin Sodium (Porcine) 5,000 unit 11/27/19 15:45 11/28/19 06:44 Heparin - SQ 5,000 unit TID [facility] Administration Insulin Aspart 1 vial 11/27/19 07:00 11/28/19 11:26 Novolog Vial Sliding Scale - SQ 8 units TIDAC [facility] Administration Protocol Latanoprost 1 drop 11/27/19 22:00 11/27/19 23:03 Xalatan 0.005% Eye Drops - OU 1 drop HS [facility] Administration Levothyroxine Sodium 50 mcg 11/27/19 10:45 11/28/19 06:46 Synthroid - PO 50 mcg DAILY@0700 [facility] Administration Non-Formulary Medication 1.5 mg 11/28/19 10:00 Dulaglutide [Trulicity] SQ DAILY [facility] Polyethylene Glycol 17 gm 11/27/19 10:00 11/28/19 10:09 Miralax (For Daily Use) - PO 17 grams BID [facility] Administration Rosuvastatin Calcium 20 mg 11/27/19 22:00 11/27/19 22:54 Crestor - PO 20 mg HS [facility] Administration Timolol Maleate 1 drop 11/27/19 22:00 11/28/19 10:04 Timoptic 0.5% OU 1 drop BID [facility] Administration Impression 1. azotemia 2. urinary retention 3. hld 4. HIV 5. cad 6. constipation 7. UTI Plan - monitor santana output - start fluids - monitor for post obstructive diuresis - consider urology eval - follow cultures - cont bowel regimen
[2019-11-28] MEDS: SODIUM CHLORIDE 0.45% 1,000 ML IV SCH (15:06)
--- NOTE | 2019-11-28 15:20 | PN ---
Teaching Attending Note Name of Resident: Claire Brantley ATTENDING PHYSICIAN STATEMENT I saw and evaluated the patient. SUBJECTIVE: Seen and examined at bedside, no acute events overnight. No further bowel movements. OBJECTIVE: Vital Signs - 24 hr 11/27/19 11/27/19 11/27/19 18:00 21:00 22:00 Temperature 98.6 F 98.5 F Pulse Rate 82 91 H Respiratory 18 18 Rate Blood Pressure 152/78 126/78 O2 Sat by Pulse 97 Oximetry (%) 11/28/19 11/28/19 11/28/19 06:49 09:00 10:04 Temperature 98.1 F 98.6 F Pulse Rate 76 80 Respiratory 18 18 18 Rate Blood Pressure 123/82 112/69 O2 Sat by Pulse 97 Oximetry (%) PE: General: NAD CVS: s1s2, rrr Lungs: cta bl unlabored Abd: nt, slightly distended, large abdomen, +santana Ext: no cce Current Medications Brimonidine Tartrate (Alphagan 0.2% -) 1 drop OU BID [facility] Last Admin: 11/28/19 10:04 Dose: 1 drop Carvedilol (Coreg -) 3.125 mg PO BID [facility] Last Admin: 11/28/19 10:03 Dose: 3.125 mg Citalopram Hydrobromide (Celexa -) 40 mg PO DAILY [facility] Last Admin: 11/28/19 10:03 Dose: 40 mg Clopidogrel Bisulfate (Plavix -) 75 mg PO DAILY [facility] Last Admin: 11/28/19 10:03 Dose: 75 mg Doxepin HCl (Sinequan -) 100 mg PO DAILY [facility] Last Admin: 11/28/19 10:03 Dose: 100 mg Heparin Sodium (Porcine) (Heparin -) 5,000 unit SQ TID [facility] Last Admin: 11/28/19 14:43 Dose: 5,000 unit Sodium Chloride (1/2 Normal Saline) 1,000 mls @ 75 mls/hr IV ASDIR [facility] Last Admin: 11/28/19 15:06 Dose: 75 mls/hr Insulin Aspart (Novolog Vial Sliding Scale -) 1 vial SQ TIDAC [facility]; Protocol Last Admin: 11/28/19 11:26 Dose: 8 units Latanoprost (Xalatan 0.005% Eye Drops -) 1 drop OU HS [facility] Last Admin: 11/27/19 23:03 Dose: 1 drop Levothyroxine Sodium (Synthroid -) 50 mcg PO DAILY@0700 [facility] Last Admin: 11/28/19 06:46 Dose: 50 mcg Non-Formulary Medication (Dulaglutide [Trulicity]) 1.5 mg SQ DAILY [facility] Polyethylene Glycol (Miralax (For Daily Use) -) 17 gm PO BID [facility] Last Admin: 11/28/19 10:09 Dose: 17 grams Rosuvastatin Calcium (Crestor -) 20 mg PO HS [facility] Last Admin: 11/27/19 22:54 Dose: 20 mg Timolol Maleate (Timoptic 0.5%) 1 drop OU BID [facility] Last Admin: 11/28/19 10:04 Dose: 1 drop Laboratory Results - last 24 hr 11/27/19 11/28/19 11/28/19 17:38 06:41 08:05 WBC 10.0 RBC 4.19 Hgb 12.5 Hct 37.5 MCV 89.5 MCH 29.9 MCHC 33.4 RDW 13.9 Plt Count 246 MPV 8.7 Absolute Neuts (auto) 3.4 Neutrophils % 33.6 L D Neutrophils % (Manual) 31.7 L Band Neutrophils % 0.0 Lymphocytes % 58.3 H D Lymphocytes % (Manual) 49.5 H Monocytes % 4.5 Monocytes % (Manual) 2 L Eosinophils % 2.8 D Eosinophils % (Manual) 3.9 D Basophils % 0.8 Basophils % (Manual) 2.0 D Myelocytes % (Man) 0 Promyelocytes % (Man) 0 Blast Cells % (Manual) 0 Nucleated RBC % 0 Metamyelocytes 0 Hypochromia 0 Platelet Estimate Normal Polychromasia 1+ Poikilocytosis 0 Anisocytosis 0 Microcytosis 0 Macrocytosis 0 Sodium Potassium Chloride Carbon Dioxide Anion Gap BUN Creatinine Est GFR (CKD-EPI)AfAm Est GFR (CKD-EPI)NonAf POC Glucometer 277 278 Random Glucose Calcium Phosphorus Magnesium Total Bilirubin AST ALT Alkaline Phosphatase Total Protein Albumin 11/28/19 11/28/19 08:05 11:06 WBC RBC Hgb Hct MCV MCH MCHC RDW Plt Count MPV Absolute Neuts (auto) Neutrophils % Neutrophils % (Manual) Band Neutrophils % Lymphocytes % Lymphocytes % (Manual) Monocytes % Monocytes % (Manual) Eosinophils % Eosinophils % (Manual) Basophils % Basophils % (Manual) Myelocytes % (Man) Promyelocytes % (Man) Blast Cells % (Manual) Nucleated RBC % Metamyelocytes Hypochromia Platelet Estimate Polychromasia Poikilocytosis Anisocytosis Microcytosis Macrocytosis Sodium 137 Potassium 4.5 Chloride 103 Carbon Dioxide 28 Anion Gap 5 L BUN 38.5 H Creatinine 1.6 H Est GFR (CKD-EPI)AfAm 39.06 Est GFR (CKD-EPI)NonAf 33.70 POC Glucometer 311 Random Glucose 233 H Calcium 9.0 Phosphorus 3.5 Magnesium 2.6 H Total Bilirubin 0.2 AST 15 ALT 18 Alkaline Phosphatase 117 Total Protein 6.3 L Albumin 2.6 L ASSESSMENT AND PLAN: 64 year old female with PMH of HIV, HTN, HLD, CAD s/p stent who presents with constipation x4 days with abdominal cramping and urinary symptoms. 1) UTI -completed outpatient PO abx -urine cx neg here -stop IV abx 2) Constipation -fecal impaction, passed yesterday -started on miralax -needs outpatient endoscopy -GI following 3) Acute on chronic kidney disease -started on IV fluids -santana placed, monitor i/os -monitor renal function -renal following 4) HIV, cw current regimen 5) HTN, controlled on bb, holding hctz given tani 6) DM2, cw current regimen 7) CAD, asa/plavix, bb
[2019-11-28] MEDS: LATANOPROST 0.005% OPHTH SOLN 2.5ML BOTTLE OU SCH (21:27)
[2019-11-28] MEDS: ROSUVASTATIN CA 20 MG TABLET (FP) PO SCH (21:27)
[2019-11-28] MEDS ORDERED: MELATONIN 1 MG TABLET PO ONE (21:38)
[2019-11-29] MEDS: SODIUM CHLORIDE 0.45% 1,000 ML IV SCH ×2 (06:54→15:17)
[2019-11-29] MEDS: INSULIN SLIDING SCALE (NOVOLOG) 1 VIAL SQ SCH ×2 (06:58→11:52)
[2019-11-29] MEDS: HEPARIN NA (PORCINE) 5,000 UNITS/ML 1ML VIAL SQ SCH ×2 (07:00→15:17)
[2019-11-29] MEDS: LEVOTHYROXINE NA 50 MCG TABLET (FP) PO SCH (07:02)
[2019-11-29 09:40] LABS: HEMATOCRIT 38.3 % (32.4-45.2); HEMOGLOBIN 12.7 GM/dL (10.7-15.3); MCH 29.7 pg (25.7-33.7); MCHC 33.1 g/dl (32.0-36.0); MEAN CELL VOLUME 89.5 fl (80-96); MEAN PLT VOLUME 8.6 fl (7.5-11.1); PLATELET COUNT 253 K/MM3 (134-434); RBC 4.28 M/mm3 (3.60-5.2); RDW 14.1 % (11.6-15.6); WHITE BLOOD COUNT 9.5 K/mm3 (4.0-10.0)
[2019-11-29] MEDS: CLOPIDOGREL BISULFATE 75 MG TABLET (FP) PO SCH (09:44)
[2019-11-29] MEDS: CITALOPRAM HYDROBROMIDE 20 MG TABLET (FP) PO SCH (09:44)
[2019-11-29] MEDS: CARVEDILOL 3.125 MG TABLET (FP) PO SCH (09:45)
[2019-11-29] MEDS: BRIMONIDINE TARTRATE 0.2% OPHTHALMIC 5 ML BOTTLE OU SCH (09:46)
[2019-11-29] MEDS: TIMOLOL 0.5% OPHTHALMIC SOL 5 ML BOTTLE OU SCH (09:46)
[2019-11-29] MEDS: DOXEPIN HCL 25 MG CAPSULE PO SCH (09:47)
[2019-11-29] MEDS: POLYETHYLENE GLYCOL 3350 119 GM BTL PO SCH (09:49)
[2019-11-29 10:04] VITALS: BP 139/92; PULSE 84; TEMP 98.3
[2019-11-29 10:07] LABS: ALBUMIN 2.6 g/dl (3.4-5.0); BILIRUBIN,TOTAL 0.3 mg/dL (0.2-1); BLOOD UREA NITROGEN 31.3 mg/dL (7-18); CALCIUM 8.9 mg/dL (8.5-10.1); CREATININE 1.5 mg/dL (0.55-1.3); POTASSIUM 4.5 mmol/L (3.5-5.1); TOT PROT 6.3 g/dl (6.4-8.2)
--- NOTE | 2019-11-29 12:06 | DS ---
Physical Exam: SUBJECTIVE: Patient seen and examined She was admitted to the hospital for constipation and dehydration she had a CAT scan done in the hospital which was nonspecific. Today she had a bowel movement no abdominal pain no diarrhea no other symptoms. OBJECTIVE: Vital Signs Period Temp Pulse Resp BP Sys/Isbell Pulse Ox Last 24 Hr 97.8 F-98.5 F 71-84 17-19 110-147/57-92 97 PHYSICAL EXAM GENERAL: The patient is awake, alert, and fully oriented, in no acute distress. HEAD: Normal with no signs of trauma. EYES: PERRL, extraocular movements intact, sclera anicteric, conjunctiva clear. ENT: Ears normal, nares patent, oropharynx clear without exudates, moist mucous membranes. NECK: Trachea midline, full range of motion, supple. LUNGS: Breath sounds equal, clear to auscultation bilaterally, no wheezes, no crackles, no accessory muscle use. HEART: Regular rate and rhythm, S1, S2 without murmur, rub or gallop. ABDOMEN: Soft, nontender, nondistended, normoactive bowel sounds, no guarding, no rebound, no hepatosplenomegaly, no masses. EXTREMITIES: 2+ pulses, warm, well-perfused, no edema. NEUROLOGICAL: Cranial nerves II through XII grossly intact. Normal speech, gait not observed. PSYCH: Normal mood, normal affect. SKIN: Warm, dry, normal turgor, no rashes or lesions noted. LABS Laboratory Results - last 24 hr 11/28/19 11/29/19 11/29/19 16:43 06:57 07:30 WBC RBC Hgb Hct MCV MCH MCHC RDW Plt Count MPV Sodium 139 Potassium 4.5 Chloride 107 Carbon Dioxide 28 Anion Gap 5 L BUN 31.3 H Creatinine 1.5 H Est GFR (CKD-EPI)AfAm 42.23 Est GFR (CKD-EPI)NonAf 36.44 POC Glucometer 167 208 Random Glucose 234 H Calcium 8.9 Total Bilirubin 0.3 AST 13 L ALT 15 Alkaline Phosphatase 114 Total Protein 6.3 L Albumin 2.6 L 11/29/19 11/29/19 07:30 11:48 WBC 9.5 RBC 4.28 Hgb 12.7 Hct 38.3 MCV 89.5 MCH 29.7 MCHC 33.1 RDW 14.1 Plt Count 253 MPV 8.6 Sodium Potassium Chloride Carbon Dioxide Anion Gap BUN Creatinine Est GFR (CKD-EPI)AfAm Est GFR (CKD-EPI)NonAf POC Glucometer 341 Random Glucose Calcium Total Bilirubin AST ALT Alkaline Phosphatase Total Protein Albumin HOSPITAL COURSE: She was admitted to the hospital for intestinal obstruction and constipation she was observed in the hospital and she had good bowel movement yesterday she is eating well her CAT scan abdomen is nonspecific no obstruction she got umbilical hernia which is not obstructed. Her abdominal ultrasound is okay to also renal ultrasound is okay to. Her creatinine has come down to base 1.5. She discharged home on home medication advised her to take MiraLAX 1 pack twice a day and more fiber in the diet she will follow-up with her primary care doctor. Date of Admission:11/27/19 Date of Discharge: 11/29/19 Minutes to complete discharge: 30 Discharge Summary Problems reviewed: Yes Reason For Visit: DM TYPE 2 CAUSING RENAL DISEASE,CONSTIPATION Current Active Problems Constipation (Acute) Dehydration (Acute) Fecal retention (Acute) Leukocytosis (Acute) Urinary retention (Acute) Condition: Improved - Instructions Diet, Activity, Other Instructions: Diabetic diet and activity as tolerated. Referrals: Evita Palma MD [Staff Physician] - Disposition: HOME - Home Medications Comprehensive Discharge Medication List: Ambulatory Orders Hydrochlorothiazide 25 mg PO DAILY 12/18/15 Citalopram Hydrobromide [Celexa -] 40 mg PO DAILY tablet 12/25/17 Pantoprazole Sodium [Protonix -] 40 mg PO DAILY #14 tablet.ec MDD 1 12/25/17 Zolpidem Tartrate [Ambien] 10 mg PO HS PRN tablet MDD 1 12/25/17 Brimonidine Tartrate/Timolol [Combigan Eye Drops] 5 ml OU BID 11/27/19 Carvedilol [Coreg -] 3.125 mg PO BID 11/27/19 Clopidogrel Bisulfate [Clopidogrel] 75 mg PO DAILY 11/27/19 Doxepin HCl [Sinequan -] 100 mg PO DAILY 11/27/19 Dulaglutide [Trulicity] 1.5 mg SQ DAILY 11/27/19 Furosemide [Lasix -] 20 mg PO BID 11/27/19 Insulin Glargine,Hum.rec.anlog [Basaglar Kwikpen U-100] 50 unit SQ AM 01/08/20 Levothyroxine [Synthroid -] 50 mcg PO DAILY 11/27/19 Rosuvastatin [Crestor -] 20 mg PO HS 11/27/19 Travoprost [Travatan Z] 5 ml OU HS 11/27/19 Doxepin HCl [Sinequan -] 100 mg PO DAILY capsule 11/29/19 Levothyroxine [Synthroid -] 50 mcg PO DAILY@0700 tablet 11/29/19 Polyethylene Glycol 3350 [Miralax 119 gm Btl -] 17 gm PO BID #30 bottle Timolol 0.5% [Timoptic 0.5%] 1 drop OU BID drops 11/29/19 This patient is new to me today: Yes Date on this admission: 11/29/19 Emergency Visit: Yes ED Registration Date: 11/27/19 Care time: The patient presented to the Emergency Department on the above date and was hospitalized for further evaluation of their emergent condition. Critical Care patient: No - Discharge Referral Referred to [facility] Med P.C.: No
--- NOTE | 2019-11-29 13:55 | PN ---
Progress Note, Physician History of Present Illness: Pt seen and examined at bedside. She is awake and alert. She had the santana removed and is voiding. - Current Medication List Current Medications: Active Medications Brimonidine Tartrate (Alphagan 0.2% -) 1 drop OU BID [facility] Last Admin: 11/29/19 09:46 Dose: 1 drop Carvedilol (Coreg -) 3.125 mg PO BID [facility] Last Admin: 11/29/19 09:45 Dose: 3.125 mg Citalopram Hydrobromide (Celexa -) 40 mg PO DAILY [facility] Last Admin: 11/29/19 09:44 Dose: 40 mg Clopidogrel Bisulfate (Plavix -) 75 mg PO DAILY [facility] Last Admin: 11/29/19 09:44 Dose: 75 mg Doxepin HCl (Sinequan -) 100 mg PO DAILY [facility] Last Admin: 11/29/19 09:47 Dose: 100 mg Heparin Sodium (Porcine) (Heparin -) 5,000 unit SQ TID [facility] Last Admin: 11/29/19 07:00 Dose: 5,000 unit Sodium Chloride (1/2 Normal Saline) 1,000 mls @ 75 mls/hr IV ASDIR [facility] Last Admin: 11/29/19 06:54 Dose: 75 mls/hr Insulin Aspart (Novolog Vial Sliding Scale -) 1 vial SQ TIDAC [facility]; Protocol Last Admin: 11/29/19 11:52 Dose: 8 units Latanoprost (Xalatan 0.005% Eye Drops -) 1 drop OU [facility] Last Admin: 11/28/19 21:27 Dose: 1 drop Levothyroxine Sodium (Synthroid -) 50 mcg PO DAILY@0700 [facility] Last Admin: 11/29/19 07:02 Dose: 50 mcg Non-Formulary Medication (Dulaglutide [Trulicity]) 1.5 mg SQ DAILY [facility] Polyethylene Glycol (Miralax (For Daily Use) -) 17 gm PO BID [facility] Last Admin: 11/29/19 09:49 Dose: 17 grams Rosuvastatin Calcium (Crestor -) 20 mg PO HS [facility] Last Admin: 11/28/19 21:27 Dose: 20 mg Timolol Maleate (Timoptic 0.5%) 1 drop OU BID [facility] Last Admin: 11/29/19 09:46 Dose: 1 drop - Objective Vital Signs: Vital Signs Temperature 98.3 F 11/29/19 10:03 Pulse Rate 84 11/29/19 10:03 Respiratory Rate 17 11/29/19 10:03 Blood Pressure 139/92 11/29/19 10:03 O2 Sat by Pulse Oximetry (%) 97 11/29/19 09:00 Constitutional: Yes: Calm Eyes: Yes: Conjunctiva Clear HENT: Yes: Atraumatic Neck: Yes: Supple Cardiovascular: Yes: S1, S2 Respiratory: Yes: CTA Bilaterally Gastrointestinal: Yes: Soft Genitourinary: Yes: WNL Musculoskeletal: Yes: WNL Edema: No Neurological: Yes: Oriented Psychiatric: Yes: Oriented Labs: CBC, BMP 11/29/19 07:30 11/29/19 07:30 Problem List - Problems (1) Urinary retention Code(s): R33.9 - RETENTION OF URINE, UNSPECIFIED (2) Dehydration Code(s): E86.0 - DEHYDRATION (3) Fecal retention Code(s): K59.00 - CONSTIPATION, UNSPECIFIED Qualifiers: Constipation type: unspecified constipation type Qualified Code(s): K59.00 - Constipation, unspecified (4) ERIKA (acute kidney injury) Code(s): N17.9 - ACUTE KIDNEY FAILURE, UNSPECIFIED Assessment/Plan Current Medications Generic Name Dose Route Start Last Admin Trade Name Freq PRN Reason Stop Dose Admin Brimonidine Tartrate 1 drop 11/27/19 22:00 11/29/19 09:46 Alphagan 0.2% - OU 1 drop BID [facility] Administration Carvedilol 3.125 mg 11/27/19 10:45 11/29/19 09:45 Coreg - PO 3.125 mg BID [facility] Administration Citalopram Hydrobromide 40 mg 11/27/19 10:15 11/29/19 09:44 Celexa - PO 40 mg DAILY [facility] Administration Clopidogrel Bisulfate 75 mg 11/27/19 10:15 11/29/19 09:44 Plavix - PO 75 mg DAILY [facility] Administration Doxepin HCl 100 mg 11/28/19 10:00 11/29/19 09:47 Sinequan - PO 100 mg DAILY [facility] Administration Heparin Sodium (Porcine) 5,000 unit 11/27/19 15:45 11/29/19 07:00 Heparin - SQ 5,000 unit TID [facility] Administration Sodium Chloride 1,000 mls @ 75 mls/hr 11/28/19 14:45 11/29/19 06:54 1/2 Normal Saline IV 75 mls/hr ASDIR [facility] Administration Insulin Aspart 1 vial 11/27/19 07:00 11/29/19 11:52 Novolog Vial Sliding Scale - SQ 8 units TIDAC [facility] Administration Protocol Latanoprost 1 drop 11/27/19 22:00 11/28/19 21:27 Xalatan 0.005% Eye Drops - OU 1 drop HS [facility] Administration Levothyroxine Sodium 50 mcg 11/27/19 10:45 11/29/19 07:02 Synthroid - PO 50 mcg DAILY@0700 [facility] Administration Non-Formulary Medication 1.5 mg 11/28/19 10:00 Dulaglutide [Trulicity] SQ DAILY [facility] Polyethylene Glycol 17 gm 11/27/19 10:00 11/29/19 09:49 Miralax (For Daily Use) - PO 17 grams BID [facility] Administration Rosuvastatin Calcium 20 mg 11/27/19 22:00 11/28/19 21:27 Crestor - PO 20 mg HS [facility] Administration Timolol Maleate 1 drop 11/27/19 22:00 11/29/19 09:46 Timoptic 0.5% OU 1 drop BID [facility] Administration Impression 1. azotemia 2. urinary retention 3. hld 4. HIV 5. cad 6. constipation 7. UTI Plan - renal function starting to improve - pt tolerated voiding trial - will need outpt follow up - bowel regimen for constipation
[2019-11-29 15:38] VITALS: BMI 34.2
== END 2019-11-29 15:32 | disposition home or self-care (01) | DRG 392 ==
LOC: JER 20:50 → JERBED 11-27 05:06 → J5S 11-27 12:13
PROVIDERS: ADMIT Internal Medicine; ATTEND Internal Medicine
DX: K59.09 Other constipation (principal); E87.1 Hypo-osmolality and hyponatremia; N39.0 Urinary tract infection, site not specified; N17.9 Acute kidney failure, unspecified; E46 Unspecified protein-calorie malnutrition; E78.5 Hyperlipidemia, unspecified; Z21 Asymptomatic human immunodeficiency virus [HIV] infection status; R00.0 Tachycardia, unspecified; D72.829 Elevated white blood cell count, unspecified; E11.9 Type 2 diabetes mellitus without complications; E86.0 Dehydration; F32.9 Major depressive disorder, single episode, unspecified; N28.1 Cyst of kidney, acquired; E87.5 Hyperkalemia; K43.9 Ventral hernia without obstruction or gangrene; E11.65 Type 2 diabetes mellitus with hyperglycemia; R33.9 Retention of urine, unspecified; E66.9 Obesity, unspecified; Z68.34 Body mass index [BMI] 34.0-34.9, adult; E88.09 Other disorders of plasma-protein metabolism, not elsewhere classified; I25.10 Atherosclerotic heart disease of native coronary artery without angina pectoris; I12.9 Hypertensive chronic kidney disease with stage 1 through stage 4 chronic kidney disease, or unspecified chronic kidney disease; E11.22 Type 2 diabetes mellitus with diabetic chronic kidney disease; N18.9 Chronic kidney disease, unspecified; Z95.5 Presence of coronary angioplasty implant and graft
CPT/HCPCS: 36415; 71045-TC-FY; 74177-TC; 76775-TC; 76856-TC; 80053; 81003; 82550; 82962; 83735; 84100; 85025; 85027; 87086; 93005; 93010; 97116-GP; 97161-GP; 99285-25; J1644; J7030; Q9967

== ENCOUNTER 2019-12-03 02:49 | Inpatient (IN) | payer OTHER ==
--- NOTE | 2019-12-03 03:32 | PDOC ---
Attending Attestation - Resident Resident Name: NasimericaSelene - ED Attending Attestation I have performed the following: I have examined & evaluated the patient, The case was reviewed & discussed with the resident, I agree w/resident's findings & plan - HPI HPI: 12/03/19 04:24 see resident hpi - Physicial Exam PE: 12/03/19 04:26 agree with resident exam - Medical Decision Making 12/03/19 04:26 64-year-old female status post mechanical fall with resulting shoulder pain Plan for CT scan of the head and cervical spine as well as x-rays of the affected shoulder We will plan for DC home pending results
[2019-12-03] MEDS ORDERED: ACETAMINOPHEN 325 MG TABLET (FP) PO ONE (03:46)
--- NOTE | 2019-12-03 03:46 | PDOC ---
History of Present Illness - General Chief Complaint: Injury Stated Complaint: FALL Time Seen by Provider: 12/03/19 03:31 - History of Present Illness Initial Comments: Saniya Gold is a 64yo woman with a PMH of T2DM, HIV, HTN, HLD, history of bowel obstruction, constipation, recent UTI who presents following a fall tonight. She says that she was rushing to get to the bathroom and slipped on the cement floor. She remebers the entire incident, did not hit her head, and denies LOC. She says that she caught herself on the right shoulder. She reports pain in the right shoulder but denies any other injury or pain. Past History - Past Medical History Allergies/Adverse Reactions: Allergies Allergy/AdvReac Type Severity Reaction Status Date / Time amoxicillin Allergy Verified 12/03/19 03:06 metronidazole [From Flagyl] Allergy Verified 12/03/19 03:06 Home Medications: Ambulatory Orders Hydrochlorothiazide 25 mg PO DAILY 12/18/15 Citalopram Hydrobromide [Celexa -] 40 mg PO DAILY tablet 12/25/17 Pantoprazole Sodium [Protonix -] 40 mg PO DAILY #14 tablet.ec MDD 1 12/25/17 Zolpidem Tartrate [Ambien] 10 mg PO HS PRN tablet MDD 1 12/25/17 Brimonidine Tartrate/Timolol [Combigan Eye Drops] 5 ml OU BID 11/27/19 Carvedilol [Coreg -] 3.125 mg PO BID 11/27/19 Clopidogrel Bisulfate [Clopidogrel] 75 mg PO DAILY 11/27/19 Dulaglutide [Trulicity] 1.5 mg SQ WEEKLY 11/27/19 Furosemide [Lasix -] 20 mg PO BID 11/27/19 Insulin Glargine,Hum.rec.anlog [Basaglar Kwikpen U-100] 50 unit SQ AM 11/27/19 Levothyroxine [Synthroid -] 50 mcg PO DAILY 11/27/19 Rosuvastatin [Crestor -] 20 mg PO HS 11/27/19 Travoprost [Travatan Z] 5 ml OU HS 11/27/19 Doxepin HCl [Sinequan -] 100 mg PO DAILY capsule 11/29/19 Polyethylene Glycol 3350 [Miralax 119 gm Btl -] 17 gm PO BID #30 bottle Timolol 0.5% [Timoptic 0.5%] 1 drop OU BID drops 11/29/19 Anemia: No Asthma: Yes Cancer: No Cardiac Disorders: Yes CVA: No COPD: No CHF: No Dementia: No Diabetes: Yes GI Disorders: No Disorders: No HTN: Yes Hypercholesterolemia: Yes Liver Disease: No Seizures: No Thyroid Disease: Yes - Surgical History Abdominal Surgery: Yes Appendectomy: Yes Cardiac Surgery: Yes Cholecystectomy: No Lung Surgery: No Neurologic Surgery: No Orthopedic Surgery: No - Immunization History Immunization Up to Date: Yes - Psycho Social/Smoking Cessation Hx Smoking Status: No Smoking History: Unknown if ever smoked Have you smoked in the past 12 months: No Number of Cigarettes Smoked Daily: 0 If you are a former smoker, when did you quit?: 0 Hx Alcohol Use: No Drug/Substance Use Hx: No Substance Use Type: None Hx Substance Use Treatment: No Review of Systems - Review of Systems Comments:: General: No fevers, no chills, no weight or appetite change, no malaise HEENT: No changes in vision, no changes in hearing, no congestion, no sore throat CV: No chest pain, no palpitations, no LE edema Pulm: No SOB, no cough, no wheezing GI: No nausea or vomiting, no change in bowel habits, no melena : No frequency, no urgency, no dysuria Musc: See HPI Skin: No rash, no lesions, no erythema Endo: No excessive thirst, no heat/cold intolerance Heme: No unusual bruising or bleeding, no swollen glands Neuro: No syncope, no numbness/tingling, no focal weakness Vasc: No claudication Psych: No recent change in mood, no SI or HI *Physical Exam - Vital Signs Last Vital Signs Temp Pulse Resp BP Pulse Ox 98.3 F 76 18 146/84 95 12/03/19 03:04 12/03/19 03:04 12/03/19 03:04 12/03/19 03:04 12/03/19 03:04 - Physical Exam General: Comfortable, no acute distress HEENT: PERRL, EOMI, MMM, voice normal, normal neck ROM, no LAD Cards: RRR, no murmur appreciated Pulm: Comfortable on room air, clear to auscultation bilaterally Abd: Soft, nontender, nondistended Ext: TTP over superior lateral right shoulder. No erythema, no bruising. Pt unable to move upper extremity secondary to pain Vasc: Extremities WWP. Skin: Normal color, no rashes or lesions Neuro: A&Ox3, CN grossly intact, normal speech, motor/sensory grossly intact and symmetric Psych: Mood appropriate to situation ED Treatment Course - LABORATORY CBC & Chemistry Diagram: 12/03/19 06:15 12/03/19 06:15 Medical Decision Making - Medical Decision Making 12/03/19 03:45 Saniya Gold is a 64yo woman with a PMH of T2DM, HIV, HTN, HLD, history of bowel obstruction, constipation, recent UTI who presents with right shoulder pain following a mechanical fall without head injury or LOC. - Apparently mechanical fall - Xray right shoulder - CT head, CT c-spine - Acetaminophen for pain. 12/03/19 05:01 - Shoulder xray with proximal humerus fracture. Preop labs ordered - Morphine for continued pain - No acute injury aprpeciated on CT head, c-spine but radiology report pending - Will admit when labs resulted 12/03/19 06:57 - Labs hemolized. Reordered - Consult to anny Salcedo 12/03/19 07:13 - Spoke to Dr Torres. Will likely need surgical repair - Plan to admit pending labs Signed out to Dr Chavez for the remainder of her ED care Discussed with Dr Urban. Selene Severino PGY2 Discharge - Discharge Information Problems reviewed: Yes Clinical Impression/Diagnosis: Closed fracture of right proximal humerus Qualifiers: Encounter type: initial encounter Fracture morphology: unspecified fracture morphology Qualified Code(s): S42.201A - Unspecified fracture of upper end of right humerus, initial encounter for closed fracture - Admission Yes - Follow up/Referral Referrals: ON STAFF,NOT [Primary Care Provider] - - Patient Discharge Instructions - Post Discharge Activity
[2019-12-03] MEDS ORDERED: ACETAMINOPHEN 325 MG TABLET (FP) ONE (03:53)
[2019-12-03] MEDS ORDERED: morphine CARPU-JECT 4 MG/1 ML DISP.SYRIN SQ ONE (05:00)
[2019-12-03] MEDS ORDERED: morphine SULFATE 4 MG/ML VIAL ONE (06:24)
[2019-12-03 07:09] LABS: INR 0.95 (0.83-1.09); PROTHROMBIN TIME (PATIENT) 11.2 SEC (9.7-13.0)
--- NOTE | 2019-12-03 07:51 | PDOC ---
*Physical Exam - Vital Signs Last Vital Signs Temp Pulse Resp BP Pulse Ox 98.3 F 69 18 143/81 95 12/03/19 03:04 12/03/19 06:15 12/03/19 06:15 12/03/19 06:15 12/03/19 06:15 ED Treatment Course - LABORATORY CBC & Chemistry Diagram: 12/04/19 09:46 12/04/19 09:46 - ADDITIONAL ORDERS Additional order review: Laboratory Results 12/03/19 12/03/19 12/03/19 06:15 06:15 06:15 PT with INR 11.20 INR 0.95 PTT (Actin FS) 30.5 Sodium Cancelled Potassium Cancelled Chloride Cancelled Carbon Dioxide Cancelled Anion Gap Cancelled BUN Cancelled Creatinine Cancelled Est GFR (CKD-EPI)AfAm Cancelled Est GFR (CKD-EPI)NonAf Cancelled Random Glucose Cancelled Calcium Cancelled Total Bilirubin Cancelled AST Cancelled ALT Cancelled Alkaline Phosphatase Cancelled Total Protein Cancelled Albumin Cancelled 12/03/19 06:15 RBC Cancelled MCV Cancelled MCHC Cancelled RDW Cancelled MPV Cancelled Neutrophils % Cancelled Lymphocytes % Cancelled Monocytes % Cancelled Eosinophils % Cancelled Basophils % Cancelled - Medications Given in the ED: ED Medications Discontinued Medications Generic Name Dose Route Start Last Admin Trade Name Stephanie PRN Reason Stop Dose Admin Acetaminophen 975 mg 12/03/19 03:46 12/03/19 03:55 Tylenol - PO 12/03/19 03:47 975 mg ONCE ONE Administration Morphine Sulfate 6 mg 12/03/19 05:00 12/03/19 06:27 Morphine Injection - SQ 12/03/19 05:01 6 mg ONCE ONE Administration Medical Decision Making - Medical Decision Making 12/03/19 07:50 Sign-out received from Dr. Severino. Pt with proximal radial fracture, displaced, surgical per Dr. Torres. Waiting for labs (first set hemolyzed) --> Admit Med/Surg 12/03/19 08:35 - 20g IV placed L AC by myself under ultrasound guidance - Labs redrawn and sent - Patient's pain is well controlled s/p morphine overnight - Ordered for 1L NS (no CHF, Normal EF on 2016 ECHO) - Patient made NPO 12/03/19 09:22 - White count 17.0, nl H&H - CMP pending 12/03/19 10:34 - Sign-out given to Dr. Reyes, admitted under Dr. Brantley - Lab sending phlebotomy for repeat CMP - BGM ordered, nurse aware - Per report, Ortho was at bedside and said patient to be NPO tonight at 6PM for surgery tomorrow 12/03/19 10:37 - CMP drawn - BGM 420, 6 U Regular SQ Insulin ordered 12/03/19 11:53 - K 4.8 on repeat CMP, Glucose elevated - drawn before insulin administered Discharge - Discharge Information Problems reviewed: Yes Clinical Impression/Diagnosis: Closed fracture of right proximal humerus Qualifiers: Encounter type: initial encounter Fracture morphology: unspecified fracture morphology Qualified Code(s): S42.201A - Unspecified fracture of upper end of right humerus, initial encounter for closed fracture Condition: Stable - Follow up/Referral - Patient Discharge Instructions - Post Discharge Activity
[2019-12-03] MEDS ORDERED: SODIUM CHLORIDE 0.9% 500 ML INFUS.BAG IV ONE (08:30)
[2019-12-03 09:11] LABS: BASO % 0.3 % (0-2.0); EOS % 0.2 % (0-4.5); HEMATOCRIT 44.5 % (32.4-45.2); HEMOGLOBIN 14.7 GM/dL (10.7-15.3); MCH 29.9 pg (25.7-33.7); MEAN CELL VOLUME 90.5 fl (80-96); MEAN PLT VOLUME 8.9 fl (7.5-11.1); NEUT % 64.5 % (42.8-82.8); PLATELET COUNT 301 K/MM3 (134-434); RBC 4.92 M/mm3 (3.60-5.2)
[2019-12-03 09:53] LABS: ALBUMIN 3.3 g/dl (3.4-5.0); BILIRUBIN,TOTAL 0.4 mg/dL (0.2-1); BLOOD UREA NITROGEN 32.5 mg/dL (7-18); CALCIUM 9.2 mg/dL (8.5-10.1); CREATININE 1.7 mg/dL (0.55-1.3); TOT PROT 8.4 g/dl (6.4-8.2)
[2019-12-03 09:56] LABS: POTASSIUM 6.5 mmol/L (3.5-5.1)
--- NOTE | 2019-12-03 10:13 | PN ---
Progress Note (short form) - Note Progress Note: Pt seen and examined in ER. In short she is a 64 year old right hand dominant female patient who fell last night , injuring her right arm. She is on PLavix, last took it yesterday. AVSS PE Right UE is NVI, good ROM at the wrist, fingers, thumb Right shoulder is swollen, tender to touch. + deformity X-rays Show a completely displaced right proximal humerus fracture, 2 part. Imp Displaced right proximal humerus fracture. Rec The pt needs surgery, closed reduction vs likely ORIF with an intramedullary clayton. Surgery likely delayed as she last took Plavix yesterday, and this is not a surgery we can use a tourniquet. Surgery will be tomorrow, or more likely Monday. We need medical clearance. NPO after midnight tonight in case we can do the surgery tomorrow. Stop all anticoagulants. Surgery d/w pt
[2019-12-03 10:22] LABS: INR 0.96 (0.83-1.09); PROTHROMBIN TIME (PATIENT) 11.3 SEC (9.7-13.0)
[2019-12-03 10:25] LABS: ACTIVATED PTT 37.8 SECONDS (25.2-36.5)
[2019-12-03] MEDS ORDERED: INSULIN REGULAR HUMAN 100 UNITS/ML *VIAL SQ ONE (10:37)
[2019-12-03] MEDS ORDERED: morphine CARPU-JECT 4 MG/1 ML DISP.SYRIN IVPUSH ONE (11:39)
[2019-12-03] MEDS ORDERED: MORPHINE SULFATE 2 MG/ML VIAL ONE (11:44)
[2019-12-03 11:46] LABS: BILIRUBIN,TOTAL 0.2 mg/dL (0.2-1); BLOOD UREA NITROGEN 31.8 mg/dL (7-18); CALCIUM 8.9 mg/dL (8.5-10.1); CREATININE 1.5 mg/dL (0.55-1.3); POTASSIUM 4.8 mmol/L (3.5-5.1); TOT PROT 7.2 g/dl (6.4-8.2)
--- NOTE | 2019-12-03 12:35 | EKG ---
Test Reason : Blood Pressure : / mmHG Vent. Rate : 088 BPM Atrial Rate : 088 BPM P-R Int : 160 ms QRS Dur : 076 ms QT Int : 382 ms P-R-T Axes : 052 -33 031 degrees QTc Int : 462 ms NORMAL SINUS RHYTHM LEFT AXIS DEVIATION MODERATE VOLTAGE CRITERIA FOR LVH, MAY BE NORMAL VARIANT ABNORMAL ECG Confirmed by MD PRIMITIVO, YESENIA ([id number]) on 12/03/2019 12:35:19 PM Referred By: Confirmed By:YESENIA LANGFORD MD
--- NOTE | 2019-12-03 14:09 | HP ---
CHIEF COMPLAINT: fall PCP: Peterson Tejada ([facility]) HISTORY OF PRESENT ILLNESS: Patient is a 64 yo F with a PMHx of DM, HIV, HTN, HLD, CAD s/p CABG 2017, recent UTI, presenting today with a mechanical fall. Patient says she was getting out of bed to go to the bathroom where she ended up slipping on cement. She denies LOC, head trauma. In the ER patient was found to have a Proximal R Humeral Neck fracture. Ortho was consulted and are planning surgical intervention. Patient currently denies pain except for her RUE. She denies dizziness, sob, chest pain, chills, fevers, urinary problems, nausea, vomiting, bloody stools. ER course was notable for: (1) Proximal L humeral fracture on x ray. (2) Glucose 400 Recent Travel: n/a Surgery: Appendectomy, complicated with perforation --> R ovary removed Cardiac stent Social History: Smoking: quit >30 years ago Alcohol: ~2 drinks/month Drugs: hx of crack and heroin use (snorted), last use in 2004 per patient Allergies amoxicillin Allergy (Verified 12/03/19 03:06) metronidazole [From Flagyl] Allergy (Verified 12/03/19 03:06) HOME MEDICATIONS: Home Medications Medication Instructions Recorded Hydrochlorothiazide 25 mg PO DAILY 12/18/15 Citalopram Hydrobromide [Celexa -] 40 mg PO DAILY tablet 12/25/17 Pantoprazole Sodium [Protonix -] 40 mg PO DAILY #14 tablet.ec MDD 1 12/25/17 Zolpidem Tartrate [Ambien] 10 mg PO HS PRN tablet MDD 1 12/25/17 Brimonidine Tartrate/Timolol 5 ml OU BID 11/27/19 [Combigan Eye Drops] Carvedilol [Coreg -] 3.125 mg PO BID 11/27/19 Clopidogrel Bisulfate [Clopidogrel] 75 mg PO DAILY 11/27/19 Dulaglutide [Trulicity] 1.5 mg SQ WEEKLY 11/27/19 Furosemide [Lasix -] 20 mg PO BID 11/27/19 Insulin Glargine,Hum.rec.anlog 50 unit SQ AM 11/27/19 [Basaglar Kwikpen U-100] Levothyroxine [Synthroid -] 50 mcg PO DAILY 11/27/19 Rosuvastatin [Crestor -] 20 mg PO HS 11/27/19 Travoprost [Travatan Z] 5 ml OU HS 11/27/19 Doxepin HCl [Sinequan -] 100 mg PO DAILY capsule 11/29/19 Polyethylene Glycol 3350 [Miralax 17 gm PO BID #30 bottle 11/29/19 119 gm Btl -] Timolol 0.5% [Timoptic 0.5%] 1 drop OU BID drops 11/29/19 REVIEW OF SYSTEMS per HPI PHYSICAL EXAMINATION Vital Signs - 24 hr 12/03/19 12/03/19 12/03/19 03:04 06:15 09:20 Temperature 98.3 F 98.4 F Pulse Rate 76 Pulse Rate [ 69 93 H Radial] Respiratory 18 18 20 Rate Blood Pressure 146/84 Blood Pressure 143/81 144/86 [Left Arm] O2 Sat by Pulse 95 95 96 Oximetry (%) GENERAL: a/o x 3, in nad HEAD: Normal with no signs of trauma. EYES:extraocular movements intact, sclera anicteric EARS, NOSE, THROAT: Moist mucous membranes. NECK: supple without lymphadenopathy, JVD LUNGS: Lungs CTA b/l HEART: RRR ABDOMEN: obese, +BS, nt, nd MUSCULOSKELETAL: RUE with sling, restricted ROM LOWER EXTREMITIES: 2+ pulses, No peripheral edema. Laboratory Results - last 24 hr 12/03/19 12/03/19 12/03/19 06:15 06:15 08:30 WBC 17.0 H Corrected WBC (auto) RBC 4.92 Hgb 14.7 Hct 44.5 D MCV 90.5 MCH 29.9 MCHC 33.0 RDW 14.0 Plt Count 301 MPV 8.9 Absolute Neuts (auto) 10.9 H Neutrophils % 64.5 D Lymphocytes % 32.0 D Monocytes % 3.0 L Eosinophils % 0.2 D Basophils % 0.3 Nucleated RBC % 0 Platelet Estimate Platelet Comment PT with INR 11.20 INR 0.95 PTT (Actin FS) Sodium Potassium Chloride Carbon Dioxide Anion Gap BUN Creatinine Est GFR (CKD-EPI)AfAm Est GFR (CKD-EPI)NonAf POC Glucometer Random Glucose Calcium Total Bilirubin AST ALT Alkaline Phosphatase Total Protein Albumin Blood Type B POSITIVE Antibody Screen Negative 12/03/19 12/03/19 12/03/19 08:30 08:30 08:30 WBC Corrected WBC (auto) RBC Hgb Hct MCV MCH MCHC RDW Plt Count MPV Absolute Neuts (auto) Neutrophils % Lymphocytes % Monocytes % Eosinophils % Basophils % Nucleated RBC % Platelet Estimate Platelet Comment PT with INR 11.30 INR 0.96 PTT (Actin FS) Cancelled 37.8 H Sodium 132 L Potassium 6.5 H* Chloride 99 Carbon Dioxide 28 Anion Gap 5 L BUN 32.5 H Creatinine 1.7 H Est GFR (CKD-EPI)AfAm 36.30 Est GFR (CKD-EPI)NonAf 31.32 POC Glucometer Random Glucose 446 H* Calcium 9.2 Total Bilirubin 0.4 AST 66 H ALT 39 Alkaline Phosphatase 152 H Total Protein 8.4 H Albumin 3.3 L Blood Type Antibody Screen 12/03/19 12/03/19 12/03/19 08:30 10:35 10:45 WBC Corrected WBC (auto) RBC Hgb Hct MCV MCH MCHC RDW Plt Count MPV Absolute Neuts (auto) Neutrophils % Lymphocytes % Monocytes % Eosinophils % Basophils % Nucleated RBC % Platelet Estimate Platelet Comment PT with INR INR PTT (Actin FS) Sodium 134 L Potassium 4.8 Chloride 102 Carbon Dioxide 29 Anion Gap 4 L BUN 31.8 H Creatinine 1.5 H Est GFR (CKD-EPI)AfAm 42.23 Est GFR (CKD-EPI)NonAf 36.44 POC Glucometer 420 Random Glucose 410 H* Calcium 8.9 Total Bilirubin 0.2 AST 26 ALT 33 Alkaline Phosphatase 134 H Total Protein 7.2 Albumin 3.0 L Blood Type Cancelled Antibody Screen Cancelled ASSESSMENT/PLAN: 64 yo F with a PMHx of DM, HIV, HTN, HLD, CAD s/p CABG 2016, recent UTI, presenting with a mechanical fall. # R Proximal Humeral Neck fracture s/P mechanical fall -ortho on board -plan for surgery some time this week. -patient on plavix and will need to be held -npo after midnight -pain control #Leukocytosis -likely reactive. -FU am labs #DM -SSI -hold home meds #HIV -cont. Home meds #HTN -cont. coreg, hctz #CHF -cont lasix 20mg BID #Hypothyroidosm -cont. Levothyroxin #HLD/CAD -cont. Crestor 20mg -hold Plavix for planned surgical intervention #DVT ppx hep sq- hold after midnight #FEN -npo after midnight -monitor lytes Visit type - Emergency Visit Emergency Visit: Yes ED Registration Date: 12/03/19 Care time: The patient presented to the Emergency Department on the above date and was hospitalized for further evaluation of their emergent condition. - New Patient This patient is new to me today: Yes Date on this admission: 12/03/19 - Critical Care Critical Care patient: No ATTENDING PHYSICIAN STATEMENT I saw and evaluated the patient. I reviewed the resident's note and discussed the case with the resident. I agree with the resident's findings and plan as documented. SUBJECTIVE: OBJECTIVE: ASSESSMENT AND PLAN:
[2019-12-03] MEDS: FUROSEMIDE 20 MG TABLET (FP) PO SCH (15:06)
[2019-12-03] MEDS ORDERED: FUROSEMIDE 40 MG TABLET (FP) ONE (15:22)
[2019-12-03 16:50] VITALS: BMI 32.8
[2019-12-03] MEDS: INSULIN SLIDING SCALE (NOVOLOG) 1 VIAL SQ SCH ×2 (18:35→23:24)
--- NOTE | 2019-12-03 18:50 | PN ---
Teaching Attending Note Name of Resident: Deep Reyes ATTENDING PHYSICIAN STATEMENT I saw and evaluated the patient. I reviewed the resident's note and discussed the case with the resident. I agree with the resident's findings and plan as documented. SUBJECTIVE: Seen and examined at bedside. Patient states that tramadol works better than morphine for pain. Right arm is in sling. OBJECTIVE: Vital Signs - 24 hr 12/03/19 12/03/19 12/03/19 03:04 06:15 09:20 Temperature 98.3 F 98.4 F Pulse Rate 76 Pulse Rate [ 69 93 H Radial] Respiratory 18 18 20 Rate Blood Pressure 146/84 Blood Pressure 143/81 144/86 [Left Arm] O2 Sat by Pulse 95 95 96 Oximetry (%) 12/03/19 12/03/19 15:11 16:23 Temperature 98.4 F 97.4 F L Pulse Rate 81 Pulse Rate [ 91 H Radial] Respiratory 20 20 Rate Blood Pressure 151/98 Blood Pressure 116/68 [Left Arm] O2 Sat by Pulse 99 Oximetry (%) PE: Current Medications Brimonidine Tartrate (Alphagan 0.2% -) 1 drop OU BID [facility] Carvedilol (Coreg -) 3.125 mg PO BID [facility] Citalopram Hydrobromide (Celexa -) 40 mg PO DAILY [facility] Doxepin HCl (Sinequan -) 100 mg PO DAILY [facility] Furosemide (Lasix -) 20 mg PO BIDLASIX [facility] Last Admin: 12/03/19 15:06 Dose: 20 mg Heparin Sodium (Porcine) (Heparin -) 5,000 unit SQ BID [facility] Hydrochlorothiazide (Hctz -) 25 mg PO DAILY [facility] Insulin Aspart (Novolog Vial Sliding Scale -) 1 vial SQ Q4HPO [facility]; Protocol Last Admin: 12/03/19 18:35 Dose: 6 units Latanoprost (Xalatan 0.005% Eye Drops -) 1 drop OU HS [facility] Levothyroxine Sodium (Synthroid -) 50 mcg PO AM [facility] Pantoprazole Sodium (Protonix -) 40 mg PO DAILY [facility] Polyethylene Glycol (Miralax (For Daily Use) -) 17 gm PO BID [facility] Rosuvastatin Calcium (Crestor -) 20 mg PO HS [facility] Timolol Maleate (Timoptic 0.5%) 1 drop OU BID [facility] Timolol Maleate (Timoptic 0.5%) 1 drop OU BID [facility] Laboratory Tests 12/03/19 12/03/19 12/03/19 06:15 06:15 06:15 WBC Cancelled Corrected WBC (auto) Cancelled RBC Cancelled Hgb Cancelled Hct Cancelled MCV Cancelled MCH Cancelled MCHC Cancelled RDW Cancelled Plt Count Cancelled MPV Cancelled Absolute Neuts (auto) Cancelled Neutrophils % Cancelled Lymphocytes % Cancelled Monocytes % Cancelled Eosinophils % Cancelled Basophils % Cancelled Nucleated RBC % Cancelled Platelet Estimate Cancelled Platelet Comment Cancelled PT with INR INR PTT (Actin FS) 30.5 Sodium Cancelled Potassium Cancelled Chloride Cancelled Carbon Dioxide Cancelled Anion Gap Cancelled BUN Cancelled Creatinine Cancelled Est GFR (CKD-EPI)AfAm Cancelled Est GFR (CKD-EPI)NonAf Cancelled POC Glucometer Random Glucose Cancelled Calcium Cancelled Total Bilirubin Cancelled AST Cancelled ALT Cancelled Alkaline Phosphatase Cancelled Total Protein Cancelled Albumin Cancelled Blood Type Antibody Screen 12/03/19 12/03/19 12/03/19 06:15 06:15 08:30 WBC 17.0 H Corrected WBC (auto) RBC 4.92 Hgb 14.7 Hct 44.5 D MCV 90.5 MCH 29.9 MCHC 33.0 RDW 14.0 Plt Count 301 MPV 8.9 Absolute Neuts (auto) 10.9 H Neutrophils % 64.5 D Lymphocytes % 32.0 D Monocytes % 3.0 L Eosinophils % 0.2 D Basophils % 0.3 Nucleated RBC % 0 Platelet Estimate Platelet Comment PT with INR 11.20 INR 0.95 PTT (Actin FS) Sodium Potassium Chloride Carbon Dioxide Anion Gap BUN Creatinine Est GFR (CKD-EPI)AfAm Est GFR (CKD-EPI)NonAf POC Glucometer Random Glucose Calcium Total Bilirubin AST ALT Alkaline Phosphatase Total Protein Albumin Blood Type B POSITIVE Antibody Screen Negative 12/03/19 12/03/19 12/03/19 08:30 08:30 08:30 WBC Corrected WBC (auto) RBC Hgb Hct MCV MCH MCHC RDW Plt Count MPV Absolute Neuts (auto) Neutrophils % Lymphocytes % Monocytes % Eosinophils % Basophils % Nucleated RBC % Platelet Estimate Platelet Comment PT with INR 11.30 INR 0.96 PTT (Actin FS) Cancelled 37.8 H Sodium 132 L Potassium 6.5 H* Chloride 99 Carbon Dioxide 28 Anion Gap 5 L BUN 32.5 H Creatinine 1.7 H Est GFR (CKD-EPI)AfAm 36.30 Est GFR (CKD-EPI)NonAf 31.32 POC Glucometer Random Glucose 446 H* Calcium 9.2 Total Bilirubin 0.4 AST 66 H ALT 39 Alkaline Phosphatase 152 H Total Protein 8.4 H Albumin 3.3 L Blood Type Antibody Screen 12/03/19 12/03/19 12/03/19 08:30 10:35 10:45 WBC Corrected WBC (auto) RBC Hgb Hct MCV MCH MCHC RDW Plt Count MPV Absolute Neuts (auto) Neutrophils % Lymphocytes % Monocytes % Eosinophils % Basophils % Nucleated RBC % Platelet Estimate Platelet Comment PT with INR INR PTT (Actin FS) Sodium 134 L Potassium 4.8 Chloride 102 Carbon Dioxide 29 Anion Gap 4 L BUN 31.8 H Creatinine 1.5 H Est GFR (CKD-EPI)AfAm 42.23 Est GFR (CKD-EPI)NonAf 36.44 POC Glucometer 420 Random Glucose 410 H* Calcium 8.9 Total Bilirubin 0.2 AST 26 ALT 33 Alkaline Phosphatase 134 H Total Protein 7.2 Albumin 3.0 L Blood Type Cancelled Antibody Screen Cancelled 12/03/19 12/03/19 12:12 16:58 WBC Corrected WBC (auto) RBC Hgb Hct MCV MCH MCHC RDW Plt Count MPV Absolute Neuts (auto) Neutrophils % Lymphocytes % Monocytes % Eosinophils % Basophils % Nucleated RBC % Platelet Estimate Platelet Comment PT with INR INR PTT (Actin FS) Sodium Potassium Chloride Carbon Dioxide Anion Gap BUN Creatinine Est GFR (CKD-EPI)AfAm Est GFR (CKD-EPI)NonAf POC Glucometer 307 276 Random Glucose Calcium Total Bilirubin AST ALT Alkaline Phosphatase Total Protein Albumin Blood Type Antibody Screen all imaging reports reviewed ASSESSMENT AND PLAN: 64 year old female with PMH of HIV, HTN, HLD, CAD s/p stent who presents after a fall onto her right side 1) Right Proximal Humeral Neck fracture -surgery to be scheduled likely on Monday, last dose of Plavix was yesterday -EKG no ischemic changes and cxr no acute pathology -pain control -ortho eval -hold plavix 2) CKD-creat stable, monitor 3) HIV, placed back on home regimen 4) HTN, controlled on current meds 5) DM2, uncontrolled, give half dose lantus in AM 25 units, start sliding scale for coverage 6) CAD, holding plavix, c/w asa, bb 7) Hypothyroidism-synthroid
[2019-12-03] MEDS ORDERED: ACETAMINOPHEN 1000 MG/100 ML VIAL (NON FORMULARY) IVPB ONE (20:27)
[2019-12-03] MEDS ORDERED: TIMOLOL 0.5% OPHTHALMIC SOL 5 ML BOTTLE OU SCH (22:00)
[2019-12-03] MEDS ORDERED: PATIENT'S OWN MEDICATION (NON-FORMULARY) (Brimonidine Tartrate/Timolol [Combigan 0.2%-0.5% OU SCH (22:00)
[2019-12-03] MEDS: HEPARIN NA (PORCINE) 5,000 UNITS/ML 1ML VIAL SQ SCH (23:14)
[2019-12-03] MEDS: CARVEDILOL 3.125 MG TABLET (FP) PO SCH (23:14)
[2019-12-03] MEDS: ROSUVASTATIN CA 20 MG TABLET (FP) PO SCH (23:14)
[2019-12-03] MEDS: POLYETHYLENE GLYCOL 3350 119 GM BTL PO SCH (23:21)
[2019-12-03] MEDS: TIMOLOL 0.5% OPHTHALMIC SOL 5 ML BOTTLE OU SCH (23:27)
[2019-12-03] MEDS: LATANOPROST 0.005% OPHTH SOLN 2.5ML BOTTLE OU SCH (23:28)
[2019-12-04] MEDS: LATANOPROST 0.005% OPHTH SOLN 2.5ML BOTTLE OU SCH ×2 (02:18→22:14)
[2019-12-04] MEDS: INSULIN SLIDING SCALE (NOVOLOG) 1 VIAL SQ SCH ×6 (02:19→22:14)
[2019-12-04] MEDS: TIMOLOL 0.5% OPHTHALMIC SOL 5 ML BOTTLE OU SCH ×3 (02:19→22:14)
[2019-12-04] MEDS: BRIMONIDINE TARTRATE 0.2% OPHTHALMIC 5 ML BOTTLE OU SCH ×3 (02:21→22:13)
[2019-12-04] MEDS: FUROSEMIDE 20 MG TABLET (FP) PO SCH ×2 (06:53→13:44)
[2019-12-04] MEDS: LEVOTHYROXINE NA 50 MCG TABLET (FP) PO SCH (06:53)
[2019-12-04] MEDS: INSULIN (LEVEMIR) 100 UNITS/ML UNITS SQ SCH (06:55)
[2019-12-04] MEDS: ACETAMINOPHEN 1000 MG/100 ML VIAL (NON FORMULARY) IVPB PRN ×3 (09:55→23:48)
[2019-12-04] MEDS ORDERED: PT OWN MED DRAWER 7, Y5N ONE (10:06)
[2019-12-04] MEDS: HYDROCHLOROTHIAZIDE 25 MG TABLET (FP) PO SCH (10:09)
[2019-12-04] MEDS: PANTOPRAZOLE 40 MG TABLET PO SCH (10:09)
[2019-12-04] MEDS: CITALOPRAM HYDROBROMIDE 20 MG TABLET PO SCH (10:09)
[2019-12-04] MEDS: CARVEDILOL 3.125 MG TABLET (FP) PO SCH ×2 (10:09→22:14)
[2019-12-04] MEDS: DOXEPIN HCL 50 MG CAPSULE PO SCH (10:10)
[2019-12-04 10:16] LABS: BASO % 0.4 % (0-2.0); EOS % 1.3 % (0-4.5); HEMOGLOBIN 12.8 GM/dL (10.7-15.3); MCH 30.2 pg (25.7-33.7); MCHC 33.8 g/dl (32.0-36.0); MEAN CELL VOLUME 89.4 fl (80-96); MEAN PLT VOLUME 8.4 fl (7.5-11.1); MONO % 4.4 % (3.8-10.2); NEUT % 44.9 % (42.8-82.8); PLATELET COUNT 262 K/MM3 (134-434); RBC 4.25 M/mm3 (3.60-5.2); RDW 13.7 % (11.6-15.6); WHITE BLOOD COUNT 11.6 K/mm3 (4.0-10.0)
--- NOTE | 2019-12-04 10:48 | PN ---
Progress Note (short form) - Note Progress Note: Pt seen and examined. In sling. PE RUE is NVI + swelling right shoulder area Imp Right proximal humerus fracture, displaced Rec Pt needs surgery, ORIF with a proximal humeral nail. Medical clearance Hold all anticoagulants NPO after midnight Surgery planned for Monday
[2019-12-04] MEDS: POLYETHYLENE GLYCOL 3350 119 GM BTL PO SCH ×2 (10:51→22:14)
[2019-12-04 10:53] LABS: BLOOD UREA NITROGEN 29.4 mg/dL (7-18); CALCIUM 8.7 mg/dL (8.5-10.1); CREATININE 1.5 mg/dL (0.55-1.3); POTASSIUM 4.4 mmol/L (3.5-5.1)
[2019-12-04] MEDS ORDERED: INSULIN (NOVOLOG) ASPART 100 UNITS/ML 10ML VIAL ONE ×2 (12:01→17:20)
--- NOTE | 2019-12-04 13:19 | PN ---
Physical Exam: SUBJECTIVE: Patient seen and examined. Complaining of RUE pain. Refusing morphine because her history of drug abuse. OBJECTIVE: Vital Signs Period Temp Pulse Resp BP Sys/Isbell Pulse Ox Last 24 Hr 97.4 F-98.4 F 80-91 20-20 116-151/68-98 94-99 GENERAL: a/o x 3, in nad HEAD: Normal with no signs of trauma. EYES:extraocular movements intact, sclera anicteric EARS, NOSE, THROAT: Moist mucous membranes. NECK: supple without lymphadenopathy, JVD LUNGS: Lungs CTA b/l HEART: RRR ABDOMEN: obese, +BS, nt, nd MUSCULOSKELETAL: RUE with sling, restricted ROM LOWER EXTREMITIES: 2+ pulses, No peripheral edema. Laboratory Results - last 24 hr 12/03/19 12/03/19 12/04/19 16:58 23:05 02:16 WBC RBC Hgb Hct MCV MCH MCHC RDW Plt Count MPV Absolute Neuts (auto) Neutrophils % Lymphocytes % Monocytes % Eosinophils % Basophils % Nucleated RBC % Sodium Potassium Chloride Carbon Dioxide Anion Gap BUN Creatinine Est GFR (CKD-EPI)AfAm Est GFR (CKD-EPI)NonAf POC Glucometer 276 360 278 Random Glucose Calcium 12/04/19 12/04/19 12/04/19 06:52 09:46 09:46 WBC 11.6 H RBC 4.25 Hgb 12.8 Hct 38.0 MCV 89.4 MCH 30.2 MCHC 33.8 RDW 13.7 Plt Count 262 MPV 8.4 Absolute Neuts (auto) 5.2 Neutrophils % 44.9 D Lymphocytes % 49.0 H D Monocytes % 4.4 Eosinophils % 1.3 D Basophils % 0.4 Nucleated RBC % 0 Sodium 139 Potassium 4.4 Chloride 108 H Carbon Dioxide 27 Anion Gap 5 L BUN 29.4 H Creatinine 1.5 H Est GFR (CKD-EPI)AfAm 42.23 Est GFR (CKD-EPI)NonAf 36.44 POC Glucometer 152 Random Glucose 147 H Calcium 8.7 12/04/19 11:59 WBC RBC Hgb Hct MCV MCH MCHC RDW Plt Count MPV Absolute Neuts (auto) Neutrophils % Lymphocytes % Monocytes % Eosinophils % Basophils % Nucleated RBC % Sodium Potassium Chloride Carbon Dioxide Anion Gap BUN Creatinine Est GFR (CKD-EPI)AfAm Est GFR (CKD-EPI)NonAf POC Glucometer 320 Random Glucose Calcium Active Medications Generic Name Dose Route Start Last Admin Trade Name Freq PRN Reason Stop Dose Admin Acetaminophen 1,000 mg 12/04/19 09:26 12/04/19 09:55 Ofirmev Injection - IVPB 1,000 mg Q6H PRN Administration PAIN LEVEL 6-10 Brimonidine Tartrate 1 drop 12/03/19 22:00 12/04/19 10:51 Alphagan 0.2% - OU 1 drop BID [facility] Administration Carvedilol 3.125 mg 12/03/19 22:00 12/04/19 10:09 Coreg - PO 3.125 mg BID [facility] Administration Citalopram Hydrobromide 40 mg 12/04/19 10:00 12/04/19 10:09 Celexa - PO 40 mg DAILY [facility] Administration Doxepin HCl 100 mg 12/04/19 10:00 12/04/19 10:10 Sinequan - PO 100 mg DAILY [facility] Administration Furosemide 20 mg 12/03/19 14:30 12/04/19 06:53 Lasix - PO 20 mg BIDLASIX [facility] Administration Heparin Sodium (Porcine) 5,000 unit 12/03/19 22:00 12/03/19 23:14 Heparin - SQ 5,000 unit BID [facility] Administration Hydrochlorothiazide 25 mg 12/04/19 10:00 12/04/19 10:09 Hctz - PO 25 mg DAILY [facility] Administration Insulin Aspart 1 vial 12/03/19 18:00 12/04/19 12:02 Novolog Vial Sliding Scale - SQ 8 units Q4HPO [facility] Administration Protocol Insulin Detemir 25 units 12/04/19 07:00 12/04/19 06:55 Levemir Vial SQ 25 units AM [facility] Administration Latanoprost 1 drop 12/03/19 22:00 12/04/19 02:18 Xalatan 0.005% Eye Drops - OU 1 drop HS [facility] Administration Levothyroxine Sodium 50 mcg 12/04/19 07:00 12/04/19 06:53 Synthroid - PO 50 mcg AM [facility] Administration Pantoprazole Sodium 40 mg 12/04/19 10:00 12/04/19 10:09 Protonix - PO 40 mg DAILY [facility] Administration Polyethylene Glycol 17 gm 12/03/19 22:00 12/04/19 10:51 Miralax (For Daily Use) - PO 17 gm BID [facility] Administration Rosuvastatin Calcium 20 mg 12/03/19 22:00 12/03/19 23:14 Crestor - PO 20 mg HS [facility] Administration Timolol Maleate 1 drop 12/03/19 22:00 12/04/19 10:51 Timoptic 0.5% OU 1 drop BID [facility] Administration ASSESSMENT/PLAN: 64 yo F with a PMHx of DM, HIV, HTN, HLD, CAD s/p CABG 2017, recent UTI, presenting with a mechanical fall. # R Proximal Humeral Neck fracture s/P mechanical fall -ortho on board -plan for surgery monday -patient on plavix and will need to be held -make npo night -pain control with IV tylenol #Leukocytosis -likely reactive. went down to 11 today -FU am labs #DM -SSI -hold home meds #HIV -cont. Home meds #HTN -cont. coreg, hctz #CHF -cont lasix 20mg BID #Hypothyroidosm -cont. Levothyroxin #HLD/CAD -cont. Crestor 20mg -hold Plavix for planned surgical intervention #DVT ppx hep sq- hold after midnight #FEN -npo after midnight -monitor lytes Patient medically optimized for surgery. Visit type - Emergency Visit Emergency Visit: Yes ED Registration Date: 12/03/19 Care time: The patient presented to the Emergency Department on the above date and was hospitalized for further evaluation of their emergent condition. - New Patient This patient is new to me today: Yes Date on this admission: 12/04/19 - Critical Care Critical Care patient: No ATTENDING PHYSICIAN STATEMENT I saw and evaluated the patient. I reviewed the resident's note and discussed the case with the resident. I agree with the resident's findings and plan as documented. SUBJECTIVE: OBJECTIVE: ASSESSMENT AND PLAN:
--- NOTE | 2019-12-04 17:08 | PN ---
Teaching Attending Note Name of Resident: Deep Reyes ATTENDING PHYSICIAN STATEMENT I saw and evaluated the patient. I reviewed the resident's note and discussed the case with the resident. I agree with the resident's findings and plan as documented. SUBJECTIVE: Seen and examined at bedside. Feeling well, tylenol with good relief. Wants sleeping pill for tonight, didn't sleep well last night. OBJECTIVE: Vital Signs - 24 hr 12/03/19 12/04/19 12/04/19 21:00 05:50 09:00 Temperature 98.2 F Pulse Rate 87 Respiratory 20 20 Rate Blood Pressure 129/76 O2 Sat by Pulse 94 L 98 Oximetry (%) 12/04/19 12/04/19 10:00 14:35 Temperature 97.9 F 98.0 F Pulse Rate 80 97 H Respiratory 20 20 Rate Blood Pressure 144/84 130/73 O2 Sat by Pulse Oximetry (%) PE: Gen: NAD CVS: s1s2, rrr Lungs: CTA b/l, unlabored Abdomen: soft, ntnd Ext: + swelling right shoulder area Current Medications Acetaminophen (Ofirmev Injection -) 1,000 mg IVPB Q6H PRN PRN Reason: PAIN LEVEL 6-10 Last Admin: 12/04/19 09:55 Dose: 1,000 mg Brimonidine Tartrate (Alphagan 0.2% -) 1 drop OU BID [facility] Last Admin: 12/04/19 10:51 Dose: 1 drop Carvedilol (Coreg -) 3.125 mg PO BID [facility] Last Admin: 12/04/19 10:09 Dose: 3.125 mg Citalopram Hydrobromide (Celexa -) 40 mg PO DAILY [facility] Last Admin: 12/04/19 10:09 Dose: 40 mg Doxepin HCl (Sinequan -) 100 mg PO DAILY [facility] Last Admin: 12/04/19 10:10 Dose: 100 mg Furosemide (Lasix -) 20 mg PO BIDLASIX [facility] Last Admin: 12/04/19 13:44 Dose: 20 mg Heparin Sodium (Porcine) (Heparin -) 5,000 unit SQ BID [facility] Last Admin: 12/03/19 23:14 Dose: 5,000 unit Hydrochlorothiazide (Hctz -) 25 mg PO DAILY [facility] Last Admin: 12/04/19 10:09 Dose: 25 mg Insulin Aspart (Novolog Vial Sliding Scale -) 1 vial SQ Q4HPO [facility]; Protocol Last Admin: 12/04/19 16:57 Dose: 8 units Insulin Detemir (Levemir Vial) 25 units SQ AM [facility] Last Admin: 12/04/19 06:55 Dose: 25 units Latanoprost (Xalatan 0.005% Eye Drops -) 1 drop OU HS [facility] Last Admin: 12/04/19 02:18 Dose: 1 drop Levothyroxine Sodium (Synthroid -) 50 mcg PO AM [facility] Last Admin: 12/04/19 06:53 Dose: 50 mcg Pantoprazole Sodium (Protonix -) 40 mg PO DAILY [facility] Last Admin: 12/04/19 10:09 Dose: 40 mg Polyethylene Glycol (Miralax (For Daily Use) -) 17 gm PO BID [facility] Last Admin: 12/04/19 10:51 Dose: 17 gm Rosuvastatin Calcium (Crestor -) 20 mg PO HS [facility] Last Admin: 12/03/19 23:14 Dose: 20 mg Timolol Maleate (Timoptic 0.5%) 1 drop OU BID [facility] Last Admin: 12/04/19 10:51 Dose: 1 drop Laboratory Results - last 24 hr 12/03/19 12/04/19 12/04/19 23:05 02:16 06:52 WBC RBC Hgb Hct MCV MCH MCHC RDW Plt Count MPV Absolute Neuts (auto) Neutrophils % Lymphocytes % Monocytes % Eosinophils % Basophils % Nucleated RBC % Sodium Potassium Chloride Carbon Dioxide Anion Gap BUN Creatinine Est GFR (CKD-EPI)AfAm Est GFR (CKD-EPI)NonAf POC Glucometer 360 278 152 Random Glucose Calcium 12/04/19 12/04/19 12/04/19 09:46 09:46 11:59 WBC 11.6 H RBC 4.25 Hgb 12.8 Hct 38.0 MCV 89.4 MCH 30.2 MCHC 33.8 RDW 13.7 Plt Count 262 MPV 8.4 Absolute Neuts (auto) 5.2 Neutrophils % 44.9 D Lymphocytes % 49.0 H D Monocytes % 4.4 Eosinophils % 1.3 D Basophils % 0.4 Nucleated RBC % 0 Sodium 139 Potassium 4.4 Chloride 108 H Carbon Dioxide 27 Anion Gap 5 L BUN 29.4 H Creatinine 1.5 H Est GFR (CKD-EPI)AfAm 42.23 Est GFR (CKD-EPI)NonAf 36.44 POC Glucometer 320 Random Glucose 147 H Calcium 8.7 12/04/19 16:52 WBC RBC Hgb Hct MCV MCH MCHC RDW Plt Count MPV Absolute Neuts (auto) Neutrophils % Lymphocytes % Monocytes % Eosinophils % Basophils % Nucleated RBC % Sodium Potassium Chloride Carbon Dioxide Anion Gap BUN Creatinine Est GFR (CKD-EPI)AfAm Est GFR (CKD-EPI)NonAf POC Glucometer 324 Random Glucose Calcium ASSESSMENT AND PLAN: 64 year old female with PMH of HIV, HTN, HLD, CAD s/p stent who presents after a fall onto her right side 1) Right Proximal Humeral Neck fracture -surgery planned for Monday -EKG no ischemic changes and cxr no acute pathology patient is medically stable for surgery -pain control -ortho eval -hold asa/plavix 2) CKD-creat stable, monitor 3) HIV, cw home regimen 4) HTN, controlled on current meds 5) DM2, cw mnmgt, ss for supp coverage 6) CAD, holding asa/plavix, c/w bb 7) Hypothyroidism-synthroid
[2019-12-04] MEDS: ROSUVASTATIN CA 20 MG TABLET (FP) PO SCH (22:14)
[2019-12-04] MEDS: ZOLPIDEM TARTRATE 5 MG TABLET PO PRN (22:15)
[2019-12-05] MEDS: INSULIN SLIDING SCALE (NOVOLOG) 1 VIAL SQ SCH ×5 (02:35→22:27)
[2019-12-05] MEDS: FUROSEMIDE 20 MG TABLET (FP) PO SCH ×2 (06:27→14:40)
[2019-12-05] MEDS: INSULIN (LEVEMIR) 100 UNITS/ML UNITS SQ SCH (06:27)
[2019-12-05] MEDS: LEVOTHYROXINE NA 50 MCG TABLET (FP) PO SCH (06:28)
[2019-12-05] MEDS: ACETAMINOPHEN 1000 MG/100 ML VIAL (NON FORMULARY) IVPB PRN (07:46)
[2019-12-05 08:54] LABS: BASO % 0.3 % (0-2.0); EOS % 1.8 % (0-4.5); HEMOGLOBIN 13.2 GM/dL (10.7-15.3); LYMPH % 39.6 % (8-40); MCH 29.6 pg (25.7-33.7); MCHC 33.1 g/dl (32.0-36.0); MEAN CELL VOLUME 89.4 fl (80-96); MEAN PLT VOLUME 8.8 fl (7.5-11.1); MONO % 5.3 % (3.8-10.2); PLATELET COUNT 272 K/MM3 (134-434); RBC 4.47 M/mm3 (3.60-5.2); RDW 13.4 % (11.6-15.6)
[2019-12-05 09:28] LABS: BILIRUBIN,TOTAL 0.4 mg/dL (0.2-1); BLOOD UREA NITROGEN 28.1 mg/dL (7-18); CALCIUM 9.3 mg/dL (8.5-10.1); CREATININE 1.4 mg/dL (0.55-1.3); POTASSIUM 4.4 mmol/L (3.5-5.1); TOT PROT 7.2 g/dl (6.4-8.2)
--- NOTE | 2019-12-05 09:39 | PN ---
Physical Exam: SUBJECTIVE: Patient seen and examined. Offers no complaints today. No events overnight. OBJECTIVE: Vital Signs Period Temp Pulse Resp BP Sys/Isbell Pulse Ox Last 24 Hr 97.9 F-98.0 F 80-114 20-20 130-149/71-88 98 GENERAL: a/o x 3, in nad HEAD: Normal with no signs of trauma. EYES:extraocular movements intact, sclera anicteric EARS, NOSE, THROAT: Moist mucous membranes. NECK: supple without lymphadenopathy, JVD LUNGS: Lungs CTA b/l HEART: RRR ABDOMEN: obese, +BS, nt, nd MUSCULOSKELETAL: RUE with sling, restricted ROM from pain LOWER EXTREMITIES: 2+ pulses, No peripheral edema. Laboratory Results - last 24 hr 12/04/19 12/04/19 12/04/19 09:46 09:46 11:59 WBC 11.6 H RBC 4.25 Hgb 12.8 Hct 38.0 MCV 89.4 MCH 30.2 MCHC 33.8 RDW 13.7 Plt Count 262 MPV 8.4 Absolute Neuts (auto) 5.2 Neutrophils % 44.9 D Lymphocytes % 49.0 H D Monocytes % 4.4 Eosinophils % 1.3 D Basophils % 0.4 Nucleated RBC % 0 Sodium 139 Potassium 4.4 Chloride 108 H Carbon Dioxide 27 Anion Gap 5 L BUN 29.4 H Creatinine 1.5 H Est GFR (CKD-EPI)AfAm 42.23 Est GFR (CKD-EPI)NonAf 36.44 POC Glucometer 320 Random Glucose 147 H Calcium 8.7 Total Bilirubin AST ALT Alkaline Phosphatase Total Protein Albumin 12/05/19 12/05/19 12/05/19 06:26 07:45 07:45 WBC 15.0 H RBC 4.47 Hgb 13.2 Hct 40.0 MCV 89.4 MCH 29.6 MCHC 33.1 RDW 13.4 Plt Count 272 MPV 8.8 Absolute Neuts (auto) 7.9 Neutrophils % 53.0 Lymphocytes % 39.6 Monocytes % 5.3 Eosinophils % 1.8 Basophils % 0.3 Nucleated RBC % 0 Sodium 138 Potassium 4.4 Chloride 105 Carbon Dioxide 28 Anion Gap 5 L BUN 28.1 H Creatinine 1.4 H Est GFR (CKD-EPI)AfAm 45.90 Est GFR (CKD-EPI)NonAf 39.61 POC Glucometer 148 Random Glucose 170 H Calcium 9.3 Total Bilirubin 0.4 AST 15 ALT 20 Alkaline Phosphatase 129 H Total Protein 7.2 Albumin 3.0 L Active Medications Generic Name Dose Route Start Last Admin Trade Name Stephanie PRN Reason Stop Dose Admin Brimonidine Tartrate 1 drop 12/03/19 22:00 12/04/19 22:13 Alphagan 0.2% - OU 1 drop BID [facility] Administration Carvedilol 3.125 mg 12/03/19 22:00 12/04/19 22:14 Coreg - PO 3.125 mg BID [facility] Administration Citalopram Hydrobromide 40 mg 12/04/19 10:00 12/04/19 10:09 Celexa - PO 40 mg DAILY [facility] Administration Doxepin HCl 100 mg 12/04/19 10:00 12/04/19 10:10 Sinequan - PO 100 mg DAILY [facility] Administration Furosemide 20 mg 12/03/19 14:30 12/05/19 06:27 Lasix - PO 20 mg BIDLASIX [facility] Administration Heparin Sodium (Porcine) 5,000 unit 12/03/19 22:00 12/03/19 23:14 Heparin - SQ 5,000 unit BID [facility] Administration Hydrochlorothiazide 25 mg 12/04/19 10:00 12/04/19 10:09 Hctz - PO 25 mg DAILY [facility] Administration Insulin Aspart 1 vial 12/03/19 18:00 12/05/19 06:27 Novolog Vial Sliding Scale - SQ Not Given Q4HPO [facility] Protocol Insulin Detemir 25 units 12/04/19 07:00 12/05/19 06:27 Levemir Vial SQ 25 units AM [facility] Administration Latanoprost 1 drop 12/03/19 22:00 12/04/19 22:14 Xalatan 0.005% Eye Drops - OU 1 drop HS [facility] Administration Levothyroxine Sodium 50 mcg 12/04/19 07:00 12/05/19 06:28 Synthroid - PO 50 mcg AM [facility] Administration Pantoprazole Sodium 40 mg 12/04/19 10:00 12/04/19 10:09 Protonix - PO 40 mg DAILY [facility] Administration Polyethylene Glycol 17 gm 12/03/19 22:00 12/04/19 22:14 Miralax (For Daily Use) - PO 17 gm BID [facility] Administration Rosuvastatin Calcium 20 mg 12/03/19 22:00 12/04/19 22:14 Crestor - PO 20 mg HS [facility] Administration Timolol Maleate 1 drop 12/03/19 22:00 12/04/19 22:14 Timoptic 0.5% OU 1 drop BID [facility] Administration Zolpidem Tartrate 10 mg 12/04/19 17:16 12/04/19 22:15 Ambien - PO 10 mg HS PRN Administration INSOMNIA ASSESSMENT/PLAN: 64 yo F with a PMHx of DM, HIV, HTN, HLD, CAD s/p CABG 2017, recent UTI, presenting with a mechanical fall. # R Proximal Humeral Neck fracture s/P mechanical fall -ortho on board -plan for surgery tomorrow -plavix held -make npo after midnight -pain control with IV tylenol #Leukocytosis -likely reactive -FU am labs #DM -SSI -hold home meds #HIV -cont. Home meds #HTN -cont. coreg, hctz #CHF -cont lasix 20mg BID #Hypothyroidosm -cont. Levothyroxin #HLD/CAD -cont. Crestor 20mg -hold Plavix for planned surgical intervention #DVT ppx hep sq- hold after midnight #FEN -npo after midnight -monitor lytes Patient medically optimized for surgery. Visit type - Emergency Visit Emergency Visit: Yes ED Registration Date: 12/03/19 Care time: The patient presented to the Emergency Department on the above date and was hospitalized for further evaluation of their emergent condition. - New Patient This patient is new to me today: Yes Date on this admission: 12/05/19 - Critical Care Critical Care patient: No ATTENDING PHYSICIAN STATEMENT I saw and evaluated the patient. I reviewed the resident's note and discussed the case with the resident. I agree with the resident's findings and plan as documented. SUBJECTIVE: OBJECTIVE: ASSESSMENT AND PLAN:
--- NOTE | 2019-12-05 10:12 | PN ---
Progress Note (short form) - Note Progress Note: Ortho Pt seen and examined s/p right proximal humerus fx Selected Entries 12/05/19 05:45 Temperature 98 F Pulse Rate 86 Respiratory 20 Rate Blood Pressure 132/88 Laboratory Tests 12/05/19 07:45 WBC 15.0 H Hgb 13.2 Hct 40.0 Plt Count 272 + swelling, + ttp, decr rom nvi a/p OR tomorrow for right humeral IM clayton NPO after midnight surgical clearance d/w Dr. Baird
[2019-12-05] MEDS: CITALOPRAM HYDROBROMIDE 20 MG TABLET PO SCH (10:26)
[2019-12-05] MEDS: PANTOPRAZOLE 40 MG TABLET PO SCH (10:26)
[2019-12-05] MEDS: BRIMONIDINE TARTRATE 0.2% OPHTHALMIC 5 ML BOTTLE OU SCH ×2 (10:26→22:24)
[2019-12-05] MEDS: CARVEDILOL 3.125 MG TABLET (FP) PO SCH ×2 (10:26→22:20)
[2019-12-05] MEDS: HYDROCHLOROTHIAZIDE 25 MG TABLET (FP) PO SCH (10:26)
[2019-12-05] MEDS: TIMOLOL 0.5% OPHTHALMIC SOL 5 ML BOTTLE OU SCH ×2 (10:27→22:25)
[2019-12-05] MEDS: POLYETHYLENE GLYCOL 3350 119 GM BTL PO SCH ×2 (10:31→22:21)
[2019-12-05] MEDS: DOXEPIN HCL 50 MG CAPSULE PO SCH (10:32)
[2019-12-05] MEDS ORDERED: INSULIN (NOVOLOG) ASPART 100 UNITS/ML 10ML VIAL ONE (11:12)
[2019-12-05] MEDS: RILPIVIRINE PO SCH (12:00)
[2019-12-05] MEDS: EMTRICITABINE PO SCH (12:00)
[2019-12-05] MEDS: TENOFOVIR ALAFENAMIDE PO SCH (12:00)
--- NOTE | 2019-12-05 15:56 | PN ---
Teaching Attending Note Name of Resident: Deep Reyes ATTENDING PHYSICIAN STATEMENT I saw and evaluated the patient. I reviewed the resident's note and discussed the case with the resident. I agree with the resident's findings and plan as documented. SUBJECTIVE: Seen and examined at bedside. Feeling well, no complaints. afebrile OBJECTIVE: Vital Signs - 24 hr 12/04/19 12/04/19 12/05/19 21:00 22:36 05:45 Temperature 98.0 F 98 F Pulse Rate 114 H 86 Respiratory 20 20 Rate Blood Pressure 149/71 132/88 O2 Sat by Pulse 98 Oximetry (%) 12/05/19 12/05/19 12/05/19 09:00 10:00 15:02 Temperature 98.0 F Pulse Rate 94 H 95 H Respiratory 20 20 Rate Blood Pressure 105/60 128/69 O2 Sat by Pulse 98 Oximetry (%) PE: Gen: NAD CVS: s1s2, rrr Lungs: CTA b/l, unlabored Abdomen: soft, ntnd Ext: + swelling right shoulder area Current Medications Brimonidine Tartrate (Alphagan 0.2% -) 1 drop OU BID [facility] Last Admin: 12/05/19 10:26 Dose: 1 drop Carvedilol (Coreg -) 3.125 mg PO BID [facility] Last Admin: 12/05/19 10:26 Dose: 3.125 mg Citalopram Hydrobromide (Celexa -) 40 mg PO DAILY [facility] Last Admin: 12/05/19 10:26 Dose: 40 mg Doxepin HCl (Sinequan -) 100 mg PO DAILY [facility] Last Admin: 12/05/19 10:32 Dose: 100 mg Furosemide (Lasix -) 20 mg PO BIDLASIX [facility] Last Admin: 12/05/19 14:40 Dose: 20 mg Heparin Sodium (Porcine) (Heparin -) 5,000 unit SQ BID [facility] Last Admin: 12/03/19 23:14 Dose: 5,000 unit Hydrochlorothiazide (Hctz -) 25 mg PO DAILY [facility] Last Admin: 12/05/19 10:26 Dose: 25 mg Insulin Aspart (Novolog Vial Sliding Scale -) 1 vial SQ Q4HPO [facility]; Protocol Last Admin: 12/05/19 14:40 Dose: 10 units Insulin Detemir (Levemir Vial) 25 units SQ AM [facility] Last Admin: 12/05/19 06:27 Dose: 25 units Latanoprost (Xalatan 0.005% Eye Drops -) 1 drop OU HS [facility] Last Admin: 12/04/19 22:14 Dose: 1 drop Levothyroxine Sodium (Synthroid -) 50 mcg PO AM [facility] Last Admin: 12/05/19 06:28 Dose: 50 mcg Patient's Own Medication (Non- Formulary) ( Emtricitab/Rilpi [ Odefsey Tablet] 1 each PO DAILY@0800 [facility] Last Admin: 12/05/19 12:00 Dose: 1 each Pantoprazole Sodium (Protonix -) 40 mg PO DAILY [facility] Last Admin: 12/05/19 10:26 Dose: 40 mg Polyethylene Glycol (Miralax (For Daily Use) -) 17 gm PO BID [facility] Last Admin: 12/05/19 10:31 Dose: 17 gm Rosuvastatin Calcium (Crestor -) 20 mg PO HS [facility] Last Admin: 12/04/19 22:14 Dose: 20 mg Timolol Maleate (Timoptic 0.5%) 1 drop OU BID [facility] Last Admin: 12/05/19 10:27 Dose: 1 drop Zolpidem Tartrate (Ambien -) 10 mg PO HS PRN PRN Reason: INSOMNIA Last Admin: 12/04/19 22:15 Dose: 10 mg Laboratory Results - last 24 hr 12/04/19 12/04/19 12/05/19 16:52 22:11 02:33 WBC RBC Hgb Hct MCV MCH MCHC RDW Plt Count MPV Absolute Neuts (auto) Neutrophils % Lymphocytes % Monocytes % Eosinophils % Basophils % Nucleated RBC % Sodium Potassium Chloride Carbon Dioxide Anion Gap BUN Creatinine Est GFR (CKD-EPI)AfAm Est GFR (CKD-EPI)NonAf POC Glucometer 324 273 152 Random Glucose Calcium Total Bilirubin AST ALT Alkaline Phosphatase Total Protein Albumin 12/05/19 12/05/19 12/05/19 06:26 07:45 07:45 WBC 15.0 H RBC 4.47 Hgb 13.2 Hct 40.0 MCV 89.4 MCH 29.6 MCHC 33.1 RDW 13.4 Plt Count 272 MPV 8.8 Absolute Neuts (auto) 7.9 Neutrophils % 53.0 Lymphocytes % 39.6 Monocytes % 5.3 Eosinophils % 1.8 Basophils % 0.3 Nucleated RBC % 0 Sodium 138 Potassium 4.4 Chloride 105 Carbon Dioxide 28 Anion Gap 5 L BUN 28.1 H Creatinine 1.4 H Est GFR (CKD-EPI)AfAm 45.90 Est GFR (CKD-EPI)NonAf 39.61 POC Glucometer 148 Random Glucose 170 H Calcium 9.3 Total Bilirubin 0.4 AST 15 ALT 20 Alkaline Phosphatase 129 H Total Protein 7.2 Albumin 3.0 L 12/05/19 10:59 WBC RBC Hgb Hct MCV MCH MCHC RDW Plt Count MPV Absolute Neuts (auto) Neutrophils % Lymphocytes % Monocytes % Eosinophils % Basophils % Nucleated RBC % Sodium Potassium Chloride Carbon Dioxide Anion Gap BUN Creatinine Est GFR (CKD-EPI)AfAm Est GFR (CKD-EPI)NonAf POC Glucometer 351 Random Glucose Calcium Total Bilirubin AST ALT Alkaline Phosphatase Total Protein Albumin ASSESSMENT AND PLAN: 64 year old female with PMH of HIV, HTN, HLD, CAD s/p stent who presents after a fall onto her right side 1) Right Proximal Humeral Neck fracture -surgery planned for tomorrow -medically acceptable risk for surgery -pain control -chronic leukocytosis, no evidence of infection, ua ordered -ortho eval -hold asa/plavix 2) CKD-creat stable, monitor 3) HIV, cw home regimen 4) HTN, controlled on current meds 5) DM2, cw mnmgt, ss for supp coverage 6) CAD, holding asa/plavix, c/w bb 7) Hypothyroidism-synthroid
[2019-12-05] MEDS ORDERED: ACETAMINOPHEN 1000 MG/100 ML VIAL (NON FORMULARY) IVPB PRN (20:34)
[2019-12-05 20:40] LABS: EPI CELLS 1.5 /HPF (0-5/HPF); HYALINE CASTS 1 /lpf (0-8); PH,URINE 6.5 (5.0-8.0); URINE APPEARANCE CLEAR; URINE BACTERIA 17.9 /hpf (NEGATIVE); URINE BILIRUBIN NEGATIVE (NEGATIVE); URINE COLOR YELLOW; URINE GLUCOSE (UA) 3+ (NEGATIVE); URINE KETONE NEGATIVE (NEGATIVE); URINE LEUK ESTERASE NEGATIVE (NEGATIVE); URINE NITRITE NEGATIVE (NEGATIVE); URINE PROTEIN 2+ (NEGATIVE); URINE RBC 2 /hpf (0-4); URINE UROBILINOGEN 0.2 mg/dL (0.2-1.0); URINE WBC 2 /hpf (0-5)
[2019-12-05] MEDS ORDERED: PT OWN MED DRAWER 7, Y5N ONE (21:55)
[2019-12-05] MEDS: HEPARIN NA (PORCINE) 5,000 UNITS/ML 1ML VIAL SQ SCH (22:19)
[2019-12-05] MEDS: ROSUVASTATIN CA 20 MG TABLET (FP) PO SCH (22:20)
[2019-12-05] MEDS: ZOLPIDEM TARTRATE 5 MG TABLET PO PRN (22:20)
[2019-12-05] MEDS: LATANOPROST 0.005% OPHTH SOLN 2.5ML BOTTLE OU SCH (22:25)
[2019-12-06] MEDS: FUROSEMIDE 20 MG TABLET (FP) PO SCH (06:18)
[2019-12-06] MEDS: LEVOTHYROXINE NA 50 MCG TABLET (FP) PO SCH (06:25)
[2019-12-06] MEDS: INSULIN SLIDING SCALE (NOVOLOG) 1 VIAL SQ SCH ×4 (06:25→23:03)
[2019-12-06] MEDS: INSULIN (LEVEMIR) 100 UNITS/ML UNITS SQ SCH (06:27)
[2019-12-06 09:17] LABS: BASO % 0.2 % (0-2.0); EOS % 2.1 % (0-4.5); HEMATOCRIT 39.9 % (32.4-45.2); HEMOGLOBIN 13.3 GM/dL (10.7-15.3); LYMPH % 41.9 % (8-40); MCH 30.3 pg (25.7-33.7); MCHC 33.4 g/dl (32.0-36.0); MEAN CELL VOLUME 90.7 fl (80-96); MEAN PLT VOLUME 8.8 fl (7.5-11.1); MONO % 4.6 % (3.8-10.2); NEUT % 51.2 % (42.8-82.8); PLATELET COUNT 264 K/MM3 (134-434); WHITE BLOOD COUNT 16.8 K/mm3 (4.0-10.0)
[2019-12-06 09:42] LABS: INR 1.01 (0.83-1.09); PROTHROMBIN TIME (PATIENT) 11.9 SEC (9.7-13.0)
[2019-12-06 10:08] LABS: ALBUMIN 2.9 g/dl (3.4-5.0); BILIRUBIN,TOTAL 0.4 mg/dL (0.2-1); BLOOD UREA NITROGEN 30.3 mg/dL (7-18); CALCIUM 9.3 mg/dL (8.5-10.1); CREATININE 1.6 mg/dL (0.55-1.3); POTASSIUM 4.8 mmol/L (3.5-5.1); TOT PROT 7.4 g/dl (6.4-8.2)
[2019-12-06] MEDS: RILPIVIRINE PO SCH (10:13)
[2019-12-06] MEDS: EMTRICITABINE PO SCH (10:13)
[2019-12-06] MEDS: TENOFOVIR ALAFENAMIDE PO SCH (10:13)
[2019-12-06] MEDS: PANTOPRAZOLE 40 MG TABLET PO SCH (10:14)
[2019-12-06] MEDS: CITALOPRAM HYDROBROMIDE 20 MG TABLET PO SCH (10:14)
[2019-12-06] MEDS: CARVEDILOL 3.125 MG TABLET (FP) PO SCH ×2 (10:14→22:28)
[2019-12-06] MEDS: BRIMONIDINE TARTRATE 0.2% OPHTHALMIC 5 ML BOTTLE OU SCH ×2 (10:16→22:30)
[2019-12-06] MEDS: TIMOLOL 0.5% OPHTHALMIC SOL 5 ML BOTTLE OU SCH ×2 (10:16→22:30)
--- NOTE | 2019-12-06 10:28 | PN ---
Teaching Attending Note Name of Resident: Deep Reyes ATTENDING PHYSICIAN STATEMENT I saw and evaluated the patient. I reviewed the resident's note and discussed the case with the resident. I agree with the resident's findings and plan as documented. SUBJECTIVE: Is in no distress at this time Pain is well controlled OBJECTIVE: In no distress has dry mucosa cvs::S1S2 CTAB Abd:BS+ nt/nd EXT: no edema ASSESSMENT AND PLAN: She is a 64 Y/O F W DM HIV Vital Signs - 24 hr Regards to her caraic meds: she is tachycardic which can be in the setting of pain if still tachy with proper pain control will increase the carvedilol dose patient is on LASIX and HCTZ which is not indicated, will DC HCTZ at this time and if any other agent needed for HTN control will add non diuretics. Will get an TTE and will get cardiac monitoring in light of her recent fall in HX of CAD in elderly patient. Also will help with initiating other antiHTN medication such as ACEI . Will restart plavix Monitor Volume status of the patient After the procedure: need to get Fu EKG and cardiac markers will send LFT Pain management with opioids Start bowel regimen 12/05/19 12/05/19 12/05/19 15:02 21:00 22:31 Temperature 98.0 F 98.4 F Pulse Rate 95 H 97 H Respiratory 20 20 20 Rate Blood Pressure 128/69 130/80 O2 Sat by Pulse 98 Oximetry (%) 12/06/19 05:14 Temperature 97.8 F Pulse Rate 91 H Respiratory 20 Rate Blood Pressure 142/79 O2 Sat by Pulse Oximetry (%) Current Medications Generic Name Dose Route Start Last Admin Trade Name Freq PRN Reason Stop Dose Admin Acetaminophen 1,000 mg 12/05/19 20:34 12/05/19 22:20 Ofirmev Injection - IVPB 1,000 mg Q6H PRN Administration MODERATE PAIN Brimonidine Tartrate 1 drop 12/03/19 22:00 12/06/19 10:16 Alphagan 0.2% - OU 1 drop BID [facility] Administration Carvedilol 3.125 mg 12/03/19 22:00 12/06/19 10:14 Coreg - PO 3.125 mg BID [facility] Administration Citalopram Hydrobromide 40 mg 12/04/19 10:00 12/06/19 10:14 Celexa - PO 40 mg DAILY [facility] Administration Doxepin HCl 100 mg 12/04/19 10:00 12/05/19 10:32 Sinequan - PO 100 mg DAILY [facility] Administration Furosemide 20 mg 12/03/19 14:30 12/06/19 06:18 Lasix - PO Not Given BIDLASIX [facility] Heparin Sodium (Porcine) 5,000 unit 12/03/19 22:00 12/05/19 22:19 Heparin - SQ 5,000 unit BID [facility] Administration Hydrochlorothiazide 25 mg 12/04/19 10:00 12/05/19 10:26 Hctz - PO 25 mg DAILY [facility] Administration Insulin Aspart 1 vial 12/05/19 22:00 12/06/19 06:25 Novolog Vial Sliding Scale - SQ Not Given ACHS [facility] Protocol Insulin Detemir 25 units 12/04/19 07:00 12/06/19 06:27 Levemir Vial SQ Not Given AM [facility] Latanoprost 1 drop 12/03/19 22:00 12/05/19 22:25 Xalatan 0.005% Eye Drops - OU 1 drop HS [facility] Administration Levothyroxine Sodium 50 mcg 12/04/19 07:00 12/06/19 06:25 Synthroid - PO 50 mcg AM [facility] Administration Patient's Own 1 each 12/05/19 10:00 12/06/19 10:13 Medication (Non- PO 1 each Formulary) ( DAILY@0800 [facility] Administration Emtricitab/Rilpi [ Odefsey Tablet] Pantoprazole Sodium 40 mg 12/04/19 10:00 12/06/19 10:14 Protonix - PO 40 mg DAILY [facility] Administration Polyethylene Glycol 17 gm 12/03/19 22:00 12/05/19 22:21 Miralax (For Daily Use) - PO 17 gm BID [facility] Administration Rosuvastatin Calcium 20 mg 12/03/19 22:00 12/05/19 22:20 Crestor - PO 20 mg HS [facility] Administration Timolol Maleate 1 drop 12/03/19 22:00 12/06/19 10:16 Timoptic 0.5% OU 1 drop BID [facility] Administration Zolpidem Tartrate 10 mg 12/04/19 17:16 12/05/19 22:20 Ambien - PO 10 mg HS PRN Administration INSOMNIA
[2019-12-06] MEDS: POLYETHYLENE GLYCOL 3350 119 GM BTL PO SCH ×2 (11:27→22:31)
[2019-12-06] MEDS: HEPARIN NA (PORCINE) 5,000 UNITS/ML 1ML VIAL SQ SCH ×2 (11:27→22:31)
[2019-12-06] MEDS: DOXEPIN HCL 50 MG CAPSULE PO SCH (11:27)
[2019-12-06] MEDS ORDERED: DEXAMETHASONE SOD PHOSPHATE/PF 10 MG/ML SDV ONE (12:38)
[2019-12-06] MEDS ORDERED: ROPIVACAINE HCL 0.5% 30ML VIAL ONE (12:38)
[2019-12-06] MEDS ORDERED: INSULIN (NOVOLOG) ASPART 100 UNITS/ML 10ML VIAL ONE (12:38)
[2019-12-06] MEDS ORDERED: MIDAZOLAM HCL 2 MG/2 ML SINGLE DOSE VIAL ONE ×2 (12:40)
[2019-12-06] MEDS ORDERED: PROPOFOL 20 ML ONE ×3 (13:30)
[2019-12-06] MEDS ORDERED: ETOMIDATE 20 MG/10 ML AMPUL IVPUSH ONE (13:30)
[2019-12-06] MEDS ORDERED: ROCURONIUM BROMIDE 50 MG/5 ML SYRINGE ONE ×2 (13:31→13:33)
[2019-12-06] MEDS ORDERED: EPHEDRINE SULFATE/0.9% NACL/PF 50 MG/10 ML SYRINGE NR ONE (13:31)
[2019-12-06] MEDS ORDERED: LIDOCAINE HCL/PF 2% SDV 5ML VIAL ONE (13:42)
[2019-12-06] MEDS ORDERED: ceFAZolin SODIUM 1 GM VIAL ONE (13:59)
[2019-12-06] MEDS ORDERED: ceFAZolin SODIUM 1 GM VIAL IVPB ONE (14:07)
[2019-12-06] MEDS ORDERED: DEXAMETHASONE SOD PHOSPHATE 4 MG/1 ML VIAL ONE (14:15)
[2019-12-06] MEDS ORDERED: NEOSTIGMINE METHYLSULFATE 0.5 MG/ML - 10 ML MDV ONE (14:24)
[2019-12-06] MEDS ORDERED: GLYCOPYRROLATE 0.2 MG/1 ML VIAL ONE (14:25)
[2019-12-06] MEDS ORDERED: oxyCODONE HCL 5 MG TABLET PO PRN (14:56)
--- NOTE | 2019-12-06 14:59 | OP ---
Operative Note - Note: Operative Date: 12/06/19 ([facility]) Pre-Operative Diagnosis: right displaced proximal humerus fx Operation: right humerus IM clayton Post-Operative Diagnosis: Same as Pre-op Surgeon: Reinier Torres Underwriter Solicitation Director: Luis Eduardo Hunter Anesthesiologist/NSH TEACHER: Sarah Russell Anesthesia: General, Local Estimated Blood Loss (mls): 20
--- NOTE | 2019-12-06 15:29 | OP ---
DATE OF OPERATION: 12/06/2019 PREOPERATIVE DIAGNOSIS: Right proximal humerus fracture, displaced. POSTOPERATIVE DIAGNOSIS: Right proximal humerus fracture, displaced. PROCEDURE: Intramedullary rodding, right proximal humerus fracture. SURGICAL ATTENDING: Reinier Torres MD [employer] CLERK: Rafat Baird MD and DIANNE Smith ANESTHESIA: Regional and general. CLOSURE: [place] proximal humeral nail with appropriate interlocks proximally and distally, 0 Vicryl deltoid, 2-0 subcutaneous, and samreen for skin. ESTIMATED BLOOD LOSS: Negligible. COMPLICATIONS: None. CONDITION: To recovery room in stable condition. DESCRIPTION OF PROCEDURE: The patient was taken to the operating room on December 06, 2019. General and regional anesthesia was administered by the anesthesiologist. IV Kefzol was administered prophylactically prior to the case. The patient was placed in the beach chair position with all prominences well padded. Right shoulder area was prepped and draped in the usual sterile fashion. A 2-cm longitudinal incision over the anterolateral corner of the humerus was incised. Hemostasis achieved with Bovie electrocautery. Sharp dissection was carried through the deltoid fascia splitting the fibers in the direction of their origin and gaining access to the subcutaneous space. Digital palpation was used to place the guidewire for the [place] proximal humeral nail at the articular margin on the greater tuberosity. Proper placement was confirmed in the AP and lateral plane based on the image intensifier. A wire was advanced into the proximal humerus and then opened with a proximal reamer. A beaded guidewire was placed down the opening, past the fracture, and into the distal fragment. Intramedullary canal was reamed to a 9-1/2 to facilitate passage of the clayton. A nonbeaded guidewire was placed instead of the beaded in order to pass the clayton and able to remove the wire. The real nail was then malleted into place. Three proximal and 2 distal screws were drilled, depth gauged, and then screwed with the appropriate length screws. They were done using a triple bushing on each one of the targeting holes on the targeter for the clayton. Proper placement of all hardware was confirmed based on the image intensifier in AP and lateral planes. The outrigger was then removed. The palpation revealed that the proximal aspect of the nail was just flush with the cortical margin and not intersharing the subacromial space. Range of motion revealed excellent stability of the fracture with excellent placement of the hardware. The incisions were irrigated, and the was then closed with 0 Vicryl, 2-0 subcutaneous, and samreen for skin. Sterile pressure dressing followed by a sling was applied. Patient was awakened from anesthesia, transferred to recovery in stable condition. No complications. Estimated blood loss negligible. Marilee [id number]
[2019-12-06] MEDS ORDERED: ACETAMINOPHEN 1000 MG/100 ML VIAL (NON FORMULARY) IVPB PRN (15:57)
[2019-12-06] MEDS ORDERED: ACETAMINOPHEN 325 MG TABLET (FP) PO PRN (16:01)
[2019-12-06] MEDS ORDERED: ONDANSETRON 4 MG/2 ML VIAL IVPUSH PRN (16:01)
[2019-12-06] MEDS ORDERED: LACTATED RINGERS SOLUTION 1,000 ML IV SCH (16:15)
--- NOTE | 2019-12-06 18:16 | PN ---
Physical Exam: SUBJECTIVE: Patient seen and examined. offers no complaints at this time. no events overnight. plan for surgery today OBJECTIVE: Vital Signs Period Temp Pulse Resp BP Sys/Isbell Pulse Ox Last 24 Hr 97.7 F-98.9 F 84-108 11-20 92-154/53-87 93-98 GENERAL: a/o x 3, in nad HEAD: Normal with no signs of trauma. EYES:extraocular movements intact, sclera anicteric EARS, NOSE, THROAT: Moist mucous membranes. NECK: supple without lymphadenopathy, JVD LUNGS: Lungs CTA b/l HEART: RRR ABDOMEN: obese, +BS, nt, nd MUSCULOSKELETAL: RUE with sling, restricted ROM from pain LOWER EXTREMITIES: 2+ pulses, No peripheral edema. Laboratory Results - last 24 hr 12/05/19 12/05/19 12/06/19 19:15 22:26 07:36 WBC 16.8 H RBC 4.40 Hgb 13.3 Hct 39.9 MCV 90.7 MCH 30.3 MCHC 33.4 RDW 14.0 Plt Count 264 MPV 8.8 Absolute Neuts (auto) 8.6 H Neutrophils % 51.2 Lymphocytes % 41.9 H Monocytes % 4.6 Eosinophils % 2.1 Basophils % 0.2 Nucleated RBC % 0 PT with INR INR Sodium Potassium Chloride Carbon Dioxide Anion Gap BUN Creatinine Est GFR (CKD-EPI)AfAm Est GFR (CKD-EPI)NonAf POC Glucometer 252 Random Glucose Calcium Total Bilirubin AST ALT Alkaline Phosphatase Creatine Kinase Creatine Kinase Index CK-MB (CK-2) Troponin I Total Protein Albumin Urine Color Yellow Urine Appearance Clear Urine pH 6.5 Ur Specific [place] 1.015 Urine Protein 2+ H Urine Glucose (UA) 3+ H Urine Ketones Negative Urine Blood Trace Urine Nitrite Negative Urine Bilirubin Negative Urine Urobilinogen 0.2 Ur Leukocyte Esterase Negative Urine WBC (Auto) 2 Urine RBC (Auto) 2 Urine Casts (Auto) 1 U Epithel Cells (Auto) 1.5 Urine Bacteria (Auto) 17.9 12/06/19 12/06/19 12/06/19 07:36 07:36 12:25 WBC RBC Hgb Hct MCV MCH MCHC RDW Plt Count MPV Absolute Neuts (auto) Neutrophils % Lymphocytes % Monocytes % Eosinophils % Basophils % Nucleated RBC % PT with INR 11.90 INR 1.01 Sodium 136 Potassium 4.8 Chloride 102 Carbon Dioxide 28 Anion Gap 6 L BUN 30.3 H Creatinine 1.6 H Est GFR (CKD-EPI)AfAm 39.06 Est GFR (CKD-EPI)NonAf 33.70 POC Glucometer 256 Random Glucose 254 H Calcium 9.3 Total Bilirubin 0.4 AST 12 L ALT 18 Alkaline Phosphatase 135 H Creatine Kinase Creatine Kinase Index CK-MB (CK-2) Troponin I Total Protein 7.4 Albumin 2.9 L Urine Color Urine Appearance Urine pH Ur Specific [place] Urine Protein Urine Glucose (UA) Urine Ketones Urine Blood Urine Nitrite Urine Bilirubin Urine Urobilinogen Ur Leukocyte Esterase Urine WBC (Auto) Urine RBC (Auto) Urine Casts (Auto) U Epithel Cells (Auto) Urine Bacteria (Auto) 12/06/19 12/06/19 15:45 17:06 WBC RBC Hgb Hct MCV MCH MCHC RDW Plt Count MPV Absolute Neuts (auto) Neutrophils % Lymphocytes % Monocytes % Eosinophils % Basophils % Nucleated RBC % PT with INR INR Sodium Potassium Chloride Carbon Dioxide Anion Gap BUN Creatinine Est GFR (CKD-EPI)AfAm Est GFR (CKD-EPI)NonAf POC Glucometer 208 Random Glucose Calcium Total Bilirubin AST ALT Alkaline Phosphatase Creatine Kinase 157 Creatine Kinase Index No Result Required. CK-MB (CK-2) < 1.0 Troponin I < 0.02 Total Protein Albumin Urine Color Urine Appearance Urine pH Ur Specific [place] Urine Protein Urine Glucose (UA) Urine Ketones Urine Blood Urine Nitrite Urine Bilirubin Urine Urobilinogen Ur Leukocyte Esterase Urine WBC (Auto) Urine RBC (Auto) Urine Casts (Auto) U Epithel Cells (Auto) Urine Bacteria (Auto) Active Medications Generic Name Dose Route Start Last Admin Trade Name Guillaumeq PRN Reason Stop Dose Admin Acetaminophen 1,000 mg 12/06/19 15:57 Ofirmev Injection - IVPB Q6H PRN MODERATE PAIN Acetaminophen 650 mg 12/06/19 16:01 Tylenol - PO Q4H PRN Pain-PACU ORDER X 2 DOSES ONLY Brimonidine Tartrate 1 drop 12/06/19 22:00 Alphagan 0.2% - OU BID [facility] Carvedilol 3.125 mg 12/06/19 22:00 Coreg - PO BID [facility] Cefazolin Sodium/Dextrose 2 gm 12/06/19 21:00 Ancef 2 Gm Premixed Ivpb - IVPB 12/07/19 20:59 Q8H [facility] Citalopram Hydrobromide 40 mg 12/07/19 10:00 Celexa - PO DAILY [facility] Doxepin HCl 100 mg 12/07/19 22:00 Sinequan - PO HS [facility] Furosemide 20 mg 12/07/19 06:00 Lasix - PO BIDLASIX [facility] Heparin Sodium (Porcine) 5,000 unit 12/06/19 22:00 Heparin - SQ BID [facility] Lactated Ringer's 1,000 mls @ 125 mls/hr 12/06/19 16:15 12/06/19 17:15 Lactated Ringers Solution IV 0 mls ASDIR [facility] Administration Insulin Aspart 1 vial 12/06/19 16:30 12/06/19 18:06 Novolog Vial Sliding Scale - SQ Not Given ACHS [facility] Protocol Insulin Detemir 25 units 12/07/19 07:00 Levemir Vial SQ AM [facility] Latanoprost 1 drop 12/06/19 22:00 Xalatan 0.005% Eye Drops - OU HS [facility] Levothyroxine Sodium 50 mcg 12/07/19 07:00 Synthroid - PO AM [facility] Non-Formulary Medication 1 each 12/07/19 08:00 Emtricitab/Rilpiviri/Tenof Ala [Odefsey Tablet] PO DAILY@0800 [facility] Ondansetron HCl 4 mg 12/06/19 16:01 Zofran Injection IVPUSH Q6H PRN NAUSEA AND/OR VOMITING Oxycodone HCl 5 mg 12/06/19 15:57 Roxicodone - PO Q4H PRN PAIN LEVEL 6-10 Pantoprazole Sodium 40 mg 12/07/19 10:00 Protonix - PO DAILY [facility] Polyethylene Glycol 17 gm 12/06/19 22:00 Miralax (For Daily Use) - PO BID [facility] Rosuvastatin Calcium 20 mg 12/06/19 22:00 Crestor - PO HS [facility] Timolol Maleate 1 drop 12/06/19 22:00 Timoptic 0.5% OU BID [facility] Zolpidem Tartrate 10 mg 12/06/19 15:57 Ambien - PO HS PRN INSOMNIA ASSESSMENT/PLAN: 64 yo F with a PMHx of DM, HIV, HTN, HLD, CAD s/p CABG 2017, recent UTI, presenting with a mechanical fall. # R Proximal Humeral Neck fracture s/P mechanical fall -ortho on board -plan for surgery today -plavix held -npo -pain control -restart plavix once cleared #Leukocytosis -likely reactive -FU am labs #DM -SSI -hold home meds #HIV -cont. Home meds #HTN -cont. coreg, hctz #CHF -dc lasix. patient on hctz. -echo #Hypothyroidosm -cont. Levothyroxin #HLD/CAD -cont. Crestor 20mg -hold Plavix for planned surgical intervention #DVT ppx hep sq #FEN -npo -monitor lytes Visit type - Emergency Visit Emergency Visit: Yes ED Registration Date: 12/03/19 Care time: The patient presented to the Emergency Department on the above date and was hospitalized for further evaluation of their emergent condition. - New Patient This patient is new to me today: Yes Date on this admission: 12/06/19 - Critical Care Critical Care patient: No ATTENDING PHYSICIAN STATEMENT I saw and evaluated the patient. I reviewed the resident's note and discussed the case with the resident. I agree with the resident's findings and plan as documented. SUBJECTIVE: OBJECTIVE: ASSESSMENT AND PLAN:
[2019-12-06] MEDS ORDERED: ceFAZolin 2 GRAM PREMIX BAG IVPB SCH (21:00)
[2019-12-06] MEDS: ceFAZolin 2 GRAM PREMIX BAG IVPB SCH (22:00)
[2019-12-06] MEDS: ROSUVASTATIN CA 20 MG TABLET (FP) PO SCH (22:28)
[2019-12-06] MEDS: ZOLPIDEM TARTRATE 5 MG TABLET PO PRN (22:29)
[2019-12-06] MEDS: oxyCODONE HCL 5 MG TABLET PO PRN (22:29)
[2019-12-06] MEDS: LATANOPROST 0.005% OPHTH SOLN 2.5ML BOTTLE OU SCH (22:30)
[2019-12-07] MEDS: oxyCODONE HCL 5 MG TABLET PO PRN ×4 (03:17→20:10)
[2019-12-07] MEDS: MELATONIN 5 MG TABLETS PO PRN (03:47)
[2019-12-07] MEDS ORDERED: LIDOCAINE 5% TOPICAL PATCH TP ONE (05:37)
[2019-12-07] MEDS: ceFAZolin 2 GRAM PREMIX BAG IVPB SCH ×2 (05:51→14:02)
[2019-12-07] MEDS: LEVOTHYROXINE NA 50 MCG TABLET (FP) PO SCH (06:00)
[2019-12-07] MEDS: INSULIN (LEVEMIR) 100 UNITS/ML UNITS SQ SCH (06:00)
[2019-12-07] MEDS: INSULIN SLIDING SCALE (NOVOLOG) 1 VIAL SQ SCH ×4 (06:00→22:27)
--- NOTE | 2019-12-07 10:09 | PN ---
Progress Note (short form) - Note Progress Note: Post op day#1.S/p Right humerus pining under GA with intersclene block uneventful.Patient stable and c/o some pain so will put patient on oxycodone.No any anesthesia related problem.Patient Dc from the anesthesia care.
[2019-12-07] MEDS: CITALOPRAM HYDROBROMIDE 20 MG TABLET PO SCH (11:17)
[2019-12-07] MEDS: BRIMONIDINE TARTRATE 0.2% OPHTHALMIC 5 ML BOTTLE OU SCH ×2 (11:18→22:30)
[2019-12-07] MEDS: HEPARIN NA (PORCINE) 5,000 UNITS/ML 1ML VIAL SQ SCH ×2 (11:19→22:27)
[2019-12-07] MEDS: CARVEDILOL 3.125 MG TABLET (FP) PO SCH ×2 (11:19→22:26)
[2019-12-07] MEDS: PANTOPRAZOLE 40 MG TABLET PO SCH (11:19)
[2019-12-07] MEDS: TIMOLOL 0.5% OPHTHALMIC SOL 5 ML BOTTLE OU SCH ×2 (11:20→22:32)
--- NOTE | 2019-12-07 13:00 | PN ---
Progress Note, Physician History of Present Illness: patient seen at bedside. complains of right arm pain. Better since increasing oxycodone to 10mg by anesthesia. Denies nausea vomiting fever chills chest pain or SOB. denies urianry or GI symptoms. is eating and drinking well. urinating well. having BMs. POD#1 s/p right humerus IM [facility] - Current Medication List Current Medications: Active Medications Acetaminophen (Ofirmev Injection -) 1,000 mg IVPB Q6H PRN PRN Reason: MODERATE PAIN Last Admin: 12/07/19 04:43 Dose: 1,000 mg Acetaminophen (Tylenol -) 650 mg PO Q4H PRN PRN Reason: Pain-PACU ORDER X 2 DOSES ONLY Brimonidine Tartrate (Alphagan 0.2% -) 1 drop OU BID [facility] Last Admin: 12/07/19 11:18 Dose: 1 drop Carvedilol (Coreg -) 3.125 mg PO BID [facility] Last Admin: 12/07/19 11:19 Dose: 3.125 mg Cefazolin Sodium/Dextrose (Ancef 2 Gm Premixed Ivpb -) 2 gm IVPB Q8H [facility] Stop: 12/07/19 20:59 Last Admin: 12/07/19 05:51 Dose: 2 gm Citalopram Hydrobromide (Celexa -) 40 mg PO DAILY [facility] Last Admin: 12/07/19 11:17 Dose: 40 mg Doxepin HCl (Sinequan -) 100 mg PO HS [facility] Furosemide (Lasix -) 20 mg PO BIDLASIX [facility] Heparin Sodium (Porcine) (Heparin -) 5,000 unit SQ BID [facility] Last Admin: 12/07/19 11:19 Dose: 5,000 unit Lactated Ringer's (Lactated Ringers Solution) 1,000 mls @ 125 mls/hr IV ASDIR [facility] Last Admin: 12/06/19 17:15 Dose: 0 mls Insulin Aspart (Novolog Vial Sliding Scale -) 1 vial SQ ACHS [facility]; Protocol Last Admin: 12/07/19 11:52 Dose: 4 units Insulin Detemir (Levemir Vial) 25 units SQ AM [facility] Last Admin: 12/07/19 06:00 Dose: 25 units Latanoprost (Xalatan 0.005% Eye Drops -) 1 drop OU HS [facility] Last Admin: 12/06/19 22:30 Dose: 1 drop Levothyroxine Sodium (Synthroid -) 50 mcg PO AM [facility] Last Admin: 12/07/19 06:00 Dose: 50 mcg Melatonin (Melatonin) 5 mg PO HS PRN PRN Reason: INSOMNIA Last Admin: 12/07/19 03:47 Dose: 5 mg Miscellaneous (Lidoderm Patch Removal) 1 each MC DAILY@2200 [facility] Non-Formulary Medication (Emtricitab/Rilpiviri/Tenof Ala [Odefsey Tablet]) 1 each PO DAILY@0800 [facility] Last Admin: 12/07/19 11:18 Dose: 1 each Ondansetron HCl (Zofran Injection) 4 mg IVPUSH Q6H PRN PRN Reason: NAUSEA AND/OR VOMITING Oxycodone HCl (Roxicodone -) 10 mg PO Q4H PRN PRN Reason: PAIN LEVEL 6-10 Last Admin: 12/07/19 11:16 Dose: 10 mg Pantoprazole Sodium (Protonix -) 40 mg PO DAILY [facility] Last Admin: 12/07/19 11:19 Dose: 40 mg Polyethylene Glycol (Miralax (For Daily Use) -) 17 gm PO BID [facility] Last Admin: 12/06/19 22:31 Dose: 17 gm Rosuvastatin Calcium (Crestor -) 20 mg PO HS [facility] Last Admin: 12/06/19 22:28 Dose: 20 mg Timolol Maleate (Timoptic 0.5%) 1 drop OU BID [facility] Last Admin: 12/07/19 11:20 Dose: 1 drop Zolpidem Tartrate (Ambien -) 10 mg PO HS PRN PRN Reason: INSOMNIA Last Admin: 12/06/19 22:29 Dose: 10 mg - Objective Vital Signs: Vital Signs Temperature 97.9 F 12/07/19 06:00 Pulse Rate 96 H 12/07/19 06:00 Respiratory Rate 19 12/07/19 06:00 Blood Pressure 139/84 12/07/19 06:00 O2 Sat by Pulse Oximetry (%) 95 12/06/19 21:00 Constitutional: Yes: No Distress, Calm, Obese Eyes: Yes: Conjunctiva Clear, EOM Intact HENT: Yes: Atraumatic Neck: Yes: Supple Cardiovascular: Yes: Regular Rate and Rhythm Respiratory: Yes: CTA Bilaterally Gastrointestinal: Yes: Soft, Abdomen, Obese. No: Tenderness, Tenderness, Epigastrium, Tenderness, Rebound Extremities: Yes: Other (RUE dressing C/D/I. good capillary refill of RUE. RUE is warm with 2+ radial pulse. sensation intact. able to move fingers and wrist.) Edema: No Wound/Incision: Yes: Clean/Dry Neurological: Yes: Alert Psychiatric: Yes: Alert Labs: CBC, BMP 12/06/19 07:36 12/06/19 07:36 INR, PTT INR 1.01 (0.83-1.09) 12/06/19 07:36 Impression/Plan Impression/Plan: 64 yo F with a PMHx of DM, HIV, HTN, HLD, CAD s/p CABG 2017, presenting with a mechanical fall found to have right proximal displaced humeral fracture POD#1 s/ p right humerus IM [facility]. R Proximal displaced Humeral fracture from a fall mechanical fall POD#1 s/p right humerus IM [place] Pain control restart plavix when ok by ortho PT consult Leukocytosis likely reactive trend labs not done today will check tomorrow AM ERIKA vs ERIKA on CKD will get renal consult patient unsure if she has a CKD history but states she has a "spot" on one of her kidneys making urine DM ISS hold home meds HIV continue HAART HTN continue coreg CHF Echo pending diuretics held for now Hypothyroidosm continue synthroid HLD/CAD cont. Crestor 20mg restart plavix once cleared by ortho FEN LR @ 125ml/hr-decrease to 42ml/hr then dc in AM no electrolyte issues-monitor Diabetic diet PPx: HSQ TID PT consult PPI Visit type - Emergency Visit Emergency Visit: Yes ED Registration Date: 12/03/19 Care time: The patient presented to the Emergency Department on the above date and was hospitalized for further evaluation of their emergent condition. - New Patient This patient is new to me today: Yes Date on this admission: 12/07/19 - Critical Care Critical Care patient: No
[2019-12-07] MEDS ORDERED: LACTATED RINGERS SOLUTION 1,000 ML IV SCH (13:01)
--- NOTE | 2019-12-07 13:15 | EKG ---
Test Reason : Blood Pressure : / mmHG Vent. Rate : 102 BPM Atrial Rate : 102 BPM P-R Int : 150 ms QRS Dur : 082 ms QT Int : 382 ms P-R-T Axes : 043 -33 106 degrees QTc Int : 497 ms SINUS TACHYCARDIA LEFT AXIS DEVIATION MODERATE VOLTAGE CRITERIA FOR LVH, MAY BE NORMAL VARIANT T WAVE ABNORMALITY, CONSIDER LATERAL ISCHEMIA ABNORMAL ECG WHEN COMPARED WITH ECG OF 03-DEC-2019 06:04, INVERTED T WAVES HAVE REPLACED NONSPECIFIC T WAVE ABNORMALITY IN LATERAL LEADS Confirmed by JADE WALDRON MD ([id number]) on 12/07/2019 1:14:57 PM Referred By: Confirmed By:JADE WALDRON MD
[2019-12-07 14:00] LABS: BASO % 0.5 % (0-2.0); EOS % 0.3 % (0-4.5); HEMATOCRIT 36.2 % (32.4-45.2); MCH 29.4 pg (25.7-33.7); MCHC 33.1 g/dl (32.0-36.0); MEAN CELL VOLUME 88.7 fl (80-96); MEAN PLT VOLUME 8.5 fl (7.5-11.1); MONO % 5.8 % (3.8-10.2); NEUT % 58.4 % (42.8-82.8); PLATELET COUNT 300 K/MM3 (134-434); RBC 4.09 M/mm3 (3.60-5.2); RDW 13.4 % (11.6-15.6); WHITE BLOOD COUNT 18.4 K/mm3 (4.0-10.0)
[2019-12-07] MEDS: POLYETHYLENE GLYCOL 3350 119 GM BTL PO SCH ×2 (14:00→22:33)
[2019-12-07 14:23] LABS: ALBUMIN 2.7 g/dl (3.4-5.0); BILIRUBIN,TOTAL 0.2 mg/dL (0.2-1); BLOOD UREA NITROGEN 30.5 mg/dL (7-18); CALCIUM 8.9 mg/dL (8.5-10.1); CREATININE 1.6 mg/dL (0.55-1.3); POTASSIUM 4.1 mmol/L (3.5-5.1)
--- NOTE | 2019-12-07 17:59 | CON.NEP ---
Consult - Past Medical History Cardio/Vascular: Yes: CAD (with stent), HTN, Hyperlipdemia Infectious Disease: Yes: HIV Endocrine: Yes: Diabetes Mellitus (on insulin) - Past Surgical History Past Surgical History: Yes: Appendectomy (complicated- per pt, with right sided oophorectomy and removal of fallopian tube) - Alcohol/Substance Use Hx Alcohol Use: No History of Substance Use: reports: Cocaine, Heroin - Smoking History Smoking history: Never smoked Have you smoked in the past 12 months: No Aproximately how many cigarettes per day: 0 If you are a former smoker, when did you quit?: 0 - Social History ADL: Independent History of Recent Travel: No Home Medications - Allergies Allergies/Adverse Reactions: Allergies Allergy/AdvReac Type Severity Reaction Status Date / Time amoxicillin Allergy Verified 12/03/19 03:06 metronidazole [From Flagyl] Allergy Verified 12/03/19 03:06 - Home Medications Home Medications: Ambulatory Orders Hydrochlorothiazide 25 mg PO DAILY 12/18/15 Citalopram Hydrobromide [Celexa -] 40 mg PO DAILY tablet 12/25/17 Pantoprazole Sodium [Protonix -] 40 mg PO DAILY #14 tablet.ec MDD 1 12/25/17 Zolpidem Tartrate [Ambien] 10 mg PO HS PRN tablet MDD 1 12/25/17 Brimonidine Tartrate/Timolol [Combigan Eye Drops] 5 ml OU BID 11/27/19 Carvedilol [Coreg -] 3.125 mg PO BID 11/27/19 Clopidogrel Bisulfate [Clopidogrel] 75 mg PO DAILY 11/27/19 Dulaglutide [Trulicity] 1.5 mg SQ WEEKLY 11/27/19 Furosemide [Lasix -] 20 mg PO BID 11/27/19 Insulin Glargine,Hum.rec.anlog [Basaglar Kwikpen U-100] 50 unit SQ AM 11/27/19 Levothyroxine [Synthroid -] 50 mcg PO DAILY 11/27/19 Rosuvastatin [Crestor -] 20 mg PO HS 11/27/19 Travoprost [Travatan Z] 5 ml OU HS 11/27/19 Doxepin HCl [Sinequan -] 100 mg PO DAILY capsule 11/29/19 Polyethylene Glycol 3350 [Miralax 119 gm Btl -] 17 gm PO BID #30 bottle Timolol 0.5% [Timoptic 0.5%] 1 drop OU BID drops 11/29/19 Emtricitab/Rilpiviri/Tenof Ala [Odefsey Tablet] 1 each PO DAILY 12/05/19 Nephrology Consult - Height Height: 5 ft 9 in - Weight Weight: 222 lb 4.8 oz - BMI Body Mass Index (BMI): 32.8 - Lab Results CBC,BMP: CBC, BMP 12/07/19 13:29 12/07/19 13:29 Anion Gap: Anion Gap Anion Gap 5 MMOL/L (8-16) L 12/07/19 13:29 - Physical Examination Vital Signs: Vital Signs Temperature 98.3 F 12/07/19 14:00 Pulse Rate 85 12/07/19 14:00 Respiratory Rate 12/07/19 14:00 Blood Pressure 139/88 12/07/19 14:00 O2 Sat by Pulse Oximetry (%) 98 12/07/19 09:00 Assessment/Plan tani underlying ckd on ivf proteinuria noted T2DM, HIV, HTN, HLD, history of bowel obstruction, constipation, recent UTI fall
[2019-12-07] MEDS: DOXEPIN HCL 50 MG CAPSULE PO SCH (22:26)
[2019-12-07] MEDS: ROSUVASTATIN CA 20 MG TABLET (FP) PO SCH (22:26)
[2019-12-07] MEDS: LATANOPROST 0.005% OPHTH SOLN 2.5ML BOTTLE OU SCH (22:26)
[2019-12-07] MEDS: ZOLPIDEM TARTRATE 5 MG TABLET PO PRN (22:27)
[2019-12-07] MEDS: LIDOCAINE PATCH REMOVAL MC SCH (22:33)
[2019-12-08] MEDS: oxyCODONE HCL 5 MG TABLET PO PRN ×5 (01:03→22:18)
[2019-12-08] MEDS: INSULIN (LEVEMIR) 100 UNITS/ML UNITS SQ SCH (06:28)
[2019-12-08] MEDS: LEVOTHYROXINE NA 50 MCG TABLET (FP) PO SCH (06:28)
[2019-12-08] MEDS: INSULIN SLIDING SCALE (NOVOLOG) 1 VIAL SQ SCH ×4 (06:28→21:41)
[2019-12-08 07:24] LABS: BASO % 0.7 % (0-2.0); EOS % 1.4 % (0-4.5); HEMATOCRIT 35.8 % (32.4-45.2); HEMOGLOBIN 11.9 GM/dL (10.7-15.3); LYMPH % 40.9 % (8-40); MCH 29.4 pg (25.7-33.7); MCHC 33.1 g/dl (32.0-36.0); MEAN CELL VOLUME 88.7 fl (80-96); MEAN PLT VOLUME 8.5 fl (7.5-11.1); MONO % 5.1 % (3.8-10.2); NEUT % 51.9 % (42.8-82.8); PLATELET COUNT 255 K/MM3 (134-434); RBC 4.03 M/mm3 (3.60-5.2); RDW 13.4 % (11.6-15.6); WHITE BLOOD COUNT 14.3 K/mm3 (4.0-10.0)
[2019-12-08 07:46] LABS: ALBUMIN 2.5 g/dl (3.4-5.0); BILIRUBIN,TOTAL 0.4 mg/dL (0.2-1); BLOOD UREA NITROGEN 31.1 mg/dL (7-18); CALCIUM 9.1 mg/dL (8.5-10.1); CREATININE 1.5 mg/dL (0.55-1.3); POTASSIUM 4.3 mmol/L (3.5-5.1); TOT PROT 6.8 g/dl (6.4-8.2)
[2019-12-08] MEDS ORDERED: INSULIN (LEVEMIR) 100 UNITS/ML UNITS SQ ONE (08:45)
--- NOTE | 2019-12-08 08:57 | PN ---
Progress Note, Physician History of Present Illness: patient seen and examined at bedside. Pain muc better controlled today since increasing oxycodone to 10mg by anesthesia yesterday. States she had the best sleep last night since being admitted to the hospital. Denies nausea vomiting fever chills chest pain or SOB. denies urinary or GI symptoms. is eating and drinking well. urinating well. having BMs. POD#2 s/p right humerus IM [place]. Fingersticks high. Patient states she is on 60units of basaglar QAM at home. here only on 25 units - Current Medication List Current Medications: Active Medications Acetaminophen (Ofirmev Injection -) 1,000 mg IVPB Q6H PRN PRN Reason: MODERATE PAIN Last Admin: 12/07/19 04:43 Dose: 1,000 mg Acetaminophen (Tylenol -) 650 mg PO Q4H PRN PRN Reason: Pain-PACU ORDER X 2 DOSES ONLY Brimonidine Tartrate (Alphagan 0.2% -) 1 drop OU BID [facility] Last Admin: 12/07/19 22:30 Dose: 1 drop Carvedilol (Coreg -) 3.125 mg PO BID [facility] Last Admin: 12/07/19 22:26 Dose: 3.125 mg Citalopram Hydrobromide (Celexa -) 40 mg PO DAILY [facility] Last Admin: 12/07/19 11:17 Dose: 40 mg Doxepin HCl (Sinequan -) 100 mg PO HS [facility] Last Admin: 12/07/19 22:26 Dose: 100 mg Furosemide (Lasix -) 20 mg PO BIDLASIX [facility] Heparin Sodium (Porcine) (Heparin -) 5,000 unit SQ BID [facility] Last Admin: 12/07/19 22:27 Dose: 5,000 unit Insulin Aspart (Novolog Vial Sliding Scale -) 1 vial SQ ACHS [facility]; Protocol Last Admin: 12/08/19 06:28 Dose: 4 units Insulin Detemir (Levemir Vial) 35 units SQ AM [facility] Latanoprost (Xalatan 0.005% Eye Drops -) 1 drop OU HS [facility] Last Admin: 12/07/19 22:26 Dose: 1 drop Levothyroxine Sodium (Synthroid -) 50 mcg PO AM [facility] Last Admin: 12/08/19 06:28 Dose: 50 mcg Melatonin (Melatonin) 5 mg PO HS PRN PRN Reason: INSOMNIA Last Admin: 12/07/19 03:47 Dose: 5 mg Miscellaneous (Lidoderm Patch Removal) 1 each MC DAILY@2200 [facility] Last Admin: 12/07/19 22:33 Dose: 1 each Non-Formulary Medication (Emtricitab/Rilpiviri/Tenof Ala [Odefsey Tablet]) 1 each PO DAILY@0800 [facility] Last Admin: 12/08/19 07:59 Dose: 1 each Ondansetron HCl (Zofran Injection) 4 mg IVPUSH Q6H PRN PRN Reason: NAUSEA AND/OR VOMITING Oxycodone HCl (Roxicodone -) 10 mg PO Q4H PRN PRN Reason: PAIN LEVEL 6-10 Last Admin: 12/08/19 06:30 Dose: 10 mg Pantoprazole Sodium (Protonix -) 40 mg PO DAILY [facility] Last Admin: 12/07/19 11:19 Dose: 40 mg Polyethylene Glycol (Miralax (For Daily Use) -) 17 gm PO BID [facility] Last Admin: 12/07/19 22:33 Dose: Not Given Rosuvastatin Calcium (Crestor -) 20 mg PO HS [facility] Last Admin: 12/07/19 22:26 Dose: 20 mg Timolol Maleate (Timoptic 0.5%) 1 drop OU BID [facility] Last Admin: 12/07/19 22:32 Dose: 1 drop Zolpidem Tartrate (Ambien -) 10 mg PO HS PRN PRN Reason: INSOMNIA Last Admin: 12/07/19 22:27 Dose: 10 mg - Objective Vital Signs: Vital Signs Temperature 98.6 F 12/08/19 06:00 Pulse Rate 94 H 12/08/19 06:00 Respiratory Rate 12/08/19 06:00 Blood Pressure 132/76 12/08/19 06:00 O2 Sat by Pulse Oximetry (%) 96 12/07/19 21:00 Constitutional: Yes: No Distress, Calm, Obese, diaphoretic Eyes: Yes: Conjunctiva Clear, EOM Intact HENT: Yes: Atraumatic Neck: Yes: Supple Cardiovascular: Yes: Regular Rate and Rhythm Respiratory: Yes: CTA Bilaterally Gastrointestinal: Yes: Soft, Abdomen, Obese. No: Tenderness, Tenderness, Epigastrium, Tenderness, Rebound Extremities: Yes: Other (RUE dressing C/D/I. good capillary refill of RUE. RUE is warm with 2+ radial pulse. sensation intact. able to move fingers and wrist.) Edema: No Wound/Incision: Yes: Clean/Dry Neurological: Yes: Alert Psychiatric: Yes: Alert Labs: CBC, BMP 12/08/19 06:45 12/08/19 06:45 INR, PTT INR 1.01 (0.83-1.09) 12/06/19 07:36 Impression/Plan Impression/Plan: 64 yo F with a PMHx of DM, HIV, HTN, HLD, CAD s/p CABG 2016, presenting with a mechanical fall found to have right proximal displaced humeral fracture POD#2 s/ p right humerus IM [facility]. R Proximal displaced Humeral fracture from a fall mechanical fall POD#2 s/p right humerus IM [place] Pain control restart plavix when ok by ortho PT consult Leukocytosis likely reactive improving and is 14.3K today down from 18.4 yesterday trend patient is diaphoretic and states she feels warm but denies fever and/or chills culture if spikes temp ERIKA vs ERIKA on CKD renal consult noted and appreciated f/u renal/bladder US patient unsure if she has a CKD history but states she has a "spot" on one of her kidneys making urine creatinine 1.4 today which is likely her baseline DM blood glucose needs better control currently on 25units levemir QAM but patient states she is on 60 units of basaglar at home (home meds documented as 60units) Will increase her to 35 units to avoid hypoglycemia and titrate up as needed as the patient is on a diabetic diet and likely not eating as much carbs as she does at home. ISS hold home trulicity HIV continue HAART HTN continue coreg BP acceptable CHF Echo pending continue 20mg po BID lasix Hypothyroidosm continue synthroid HLD/CAD s/p stent cont. Crestor 20mg restart plavix once cleared by ortho FEN DC IVF today no electrolyte issues-monitor Diabetic diet PPx: HSQ TID PT consult PPI Visit type - Emergency Visit Emergency Visit: Yes ED Registration Date: 12/03/19 Care time: The patient presented to the Emergency Department on the above date and was hospitalized for further evaluation of their emergent condition. - New Patient This patient is new to me today: No - Critical Care Critical Care patient: No
[2019-12-08] MEDS: CITALOPRAM HYDROBROMIDE 20 MG TABLET PO SCH (10:15)
[2019-12-08] MEDS: CARVEDILOL 3.125 MG TABLET (FP) PO SCH ×2 (10:15→21:34)
[2019-12-08] MEDS: PANTOPRAZOLE 40 MG TABLET PO SCH (10:15)
[2019-12-08] MEDS: HEPARIN NA (PORCINE) 5,000 UNITS/ML 1ML VIAL SQ SCH ×2 (10:16→21:35)
[2019-12-08] MEDS: BRIMONIDINE TARTRATE 0.2% OPHTHALMIC 5 ML BOTTLE OU SCH ×2 (10:16→21:44)
[2019-12-08] MEDS: TIMOLOL 0.5% OPHTHALMIC SOL 5 ML BOTTLE OU SCH ×2 (10:17→21:37)
[2019-12-08] MEDS: POLYETHYLENE GLYCOL 3350 119 GM BTL PO SCH ×3 (13:07→21:45)
[2019-12-08] MEDS: FUROSEMIDE 20 MG TABLET (FP) PO SCH (14:43)
--- NOTE | 2019-12-08 20:06 | PN ---
Progress Note (short form) - Note Progress Note: tani underlying ckd proteinuria T2DM, HIV, HTN, HLD, history of bowel obstruction, constipation, recent UTI fall Current Medications Acetaminophen (Ofirmev Injection -) 1,000 mg IVPB Q6H PRN PRN Reason: MODERATE PAIN Last Admin: 12/07/19 04:43 Dose: 1,000 mg Acetaminophen (Tylenol -) 650 mg PO Q4H PRN PRN Reason: Pain-PACU ORDER X 2 DOSES ONLY Brimonidine Tartrate (Alphagan 0.2% -) 1 drop OU BID [facility] Last Admin: 12/08/19 10:16 Dose: 1 drop Carvedilol (Coreg -) 3.125 mg PO BID [facility] Last Admin: 12/08/19 10:15 Dose: 3.125 mg Citalopram Hydrobromide (Celexa -) 40 mg PO DAILY [facility] Last Admin: 12/08/19 10:15 Dose: 40 mg Doxepin HCl (Sinequan -) 100 mg PO HS [facility] Last Admin: 12/07/19 22:26 Dose: 100 mg Furosemide (Lasix -) 20 mg PO BIDLASIX [facility] Last Admin: 12/08/19 14:43 Dose: 20 mg Heparin Sodium (Porcine) (Heparin -) 5,000 unit SQ BID [facility] Last Admin: 12/08/19 10:16 Dose: 5,000 unit Insulin Aspart (Novolog Vial Sliding Scale -) 1 vial SQ [facility]; Protocol Last Admin: 12/08/19 17:19 Dose: 4 units Insulin Detemir (Levemir Vial) 35 units SQ AM [facility] Latanoprost (Xalatan 0.005% Eye Drops -) 1 drop OU HS [facility] Last Admin: 12/07/19 22:26 Dose: 1 drop Levothyroxine Sodium (Synthroid -) 50 mcg PO AM [facility] Last Admin: 12/08/19 06:28 Dose: 50 mcg Melatonin (Melatonin) 5 mg PO HS PRN PRN Reason: INSOMNIA Last Admin: 12/07/19 03:47 Dose: 5 mg Miscellaneous (Lidoderm Patch Removal) 1 each MC DAILY@2200 [facility] Last Admin: 12/07/19 22:33 Dose: 1 each Non-Formulary Medication (Emtricitab/Rilpiviri/Tenof Ala [Odefsey Tablet]) 1 each PO DAILY@0800 [facility] Last Admin: 12/08/19 07:59 Dose: 1 each Ondansetron HCl (Zofran Injection) 4 mg IVPUSH Q6H PRN PRN Reason: NAUSEA AND/OR VOMITING Oxycodone HCl (Roxicodone -) 10 mg PO Q4H PRN PRN Reason: PAIN LEVEL 6-10 Last Admin: 12/08/19 18:16 Dose: 10 mg Pantoprazole Sodium (Protonix -) 40 mg PO DAILY [facility] Last Admin: 12/08/19 10:15 Dose: 40 mg Polyethylene Glycol (Miralax (For Daily Use) -) 17 gm PO BID [facility] Last Admin: 12/08/19 13:07 Dose: Not Given Rosuvastatin Calcium (Crestor -) 20 mg PO HS [facility] Last Admin: 12/07/19 22:26 Dose: 20 mg Timolol Maleate (Timoptic 0.5%) 1 drop OU BID [facility] Last Admin: 12/08/19 10:17 Dose: 1 drop Zolpidem Tartrate (Ambien -) 10 mg PO HS PRN PRN Reason: INSOMNIA Last Admin: 12/07/19 22:27 Dose: 10 mg Last Vital Signs Temp Pulse Resp BP Pulse Ox 97.4 F L 95 H 20 128/77 99 12/08/19 19:56 12/08/19 19:56 12/08/19 19:56 12/08/19 19:56 12/08/19 19:56 CBC, BMP 12/08/19 06:45 12/08/19 06:45 IMP tani- creat trending down today underlying ckd proteinuria noted T2DM, HIV, HTN, HLD, history of bowel obstruction, constipation, recent UTI fall Plan- follow up renal function continue to hydrate
[2019-12-08] MEDS: ROSUVASTATIN CA 20 MG TABLET (FP) PO SCH (21:34)
[2019-12-08] MEDS: DOXEPIN HCL 50 MG CAPSULE PO SCH (21:36)
[2019-12-08] MEDS: LATANOPROST 0.005% OPHTH SOLN 2.5ML BOTTLE OU SCH (21:37)
[2019-12-08] MEDS: ZOLPIDEM TARTRATE 5 MG TABLET PO PRN (22:17)
[2019-12-08] MEDS: LIDOCAINE PATCH REMOVAL MC SCH (22:17)
[2019-12-09] MEDS: LEVOTHYROXINE NA 50 MCG TABLET (FP) PO SCH (06:40)
[2019-12-09] MEDS: INSULIN (LEVEMIR) 100 UNITS/ML UNITS SQ SCH (06:40)
[2019-12-09] MEDS: FUROSEMIDE 20 MG TABLET (FP) PO SCH ×2 (06:40→13:25)
[2019-12-09] MEDS: INSULIN SLIDING SCALE (NOVOLOG) 1 VIAL SQ SCH ×4 (06:41→21:43)
[2019-12-09 07:10] LABS: BLOOD UREA NITROGEN 38.2 mg/dL (7-18); CREATININE 1.9 mg/dL (0.55-1.3); MAGNESIUM 2.1 mg/dL (1.8-2.4); POTASSIUM 4.3 mmol/L (3.5-5.1)
[2019-12-09 07:12] LABS: BASO % 0.4 % (0-2.0); EOS % 1.8 % (0-4.5); HEMATOCRIT 34.3 % (32.4-45.2); HEMOGLOBIN 11.4 GM/dL (10.7-15.3); LYMPH % 48.9 % (8-40); MCH 29.7 pg (25.7-33.7); MCHC 33.2 g/dl (32.0-36.0); MEAN CELL VOLUME 89.5 fl (80-96); MEAN PLT VOLUME 8.5 fl (7.5-11.1); MONO % 6.1 % (3.8-10.2); NEUT % 42.8 % (42.8-82.8); PLATELET COUNT 271 K/MM3 (134-434); RBC 3.83 M/mm3 (3.60-5.2); RDW 13.4 % (11.6-15.6)
--- NOTE | 2019-12-09 07:51 | PN ---
Teaching Attending Note Name of Resident: Deep Reyes ATTENDING PHYSICIAN STATEMENT I saw and evaluated the patient. I reviewed the resident's note and discussed the case with the resident. I agree with the resident's findings and plan as documented. SUBJECTIVE: Patient pain is better controlled OBJECTIVE: Vital Signs Temperature 98.0 F 12/09/19 06:00 Pulse Rate 92 H 12/09/19 06:00 Respiratory Rate 12/09/19 06:00 Blood Pressure 114/78 12/09/19 06:00 O2 Sat by Pulse Oximetry (%) 99 12/08/19 21:00 General: Elderly woman, comfortable, not in distress HEENT; mucous membranes moist, no anemia, no jaundice, PERRLA, no nystagmus Neck: No JVD, supple, no bruit, thyroid palpably normal, normal carotid pulsations. Chest: Nontender, minimal basal rales. CVS: S1-S2 regular no murmur/gallop/rub Abdomen: Nondistended, soft, bowel sounds present. Extremities: Right upper extremity status post IM nail postoperative day thyroid no edema., No cough tenderness, pulses present ORE DRYER: AO X3 , no gross motor sensory deficit CBC, BMP 12/09/19 05:10 12/09/19 05:10 Active Medications Acetaminophen (Ofirmev Injection -) 1,000 mg IVPB Q6H PRN PRN Reason: MODERATE PAIN Last Admin: 12/07/19 04:43 Dose: 1,000 mg Acetaminophen (Tylenol -) 650 mg PO Q4H PRN PRN Reason: Pain-PACU ORDER X 2 DOSES ONLY Brimonidine Tartrate (Alphagan 0.2% -) 1 drop OU BID [facility] Last Admin: 12/08/19 21:44 Dose: 1 drop Carvedilol (Coreg -) 3.125 mg PO BID [facility] Last Admin: 12/08/19 21:34 Dose: 3.125 mg Citalopram Hydrobromide (Celexa -) 40 mg PO DAILY [facility] Last Admin: 12/08/19 10:15 Dose: 40 mg Doxepin HCl (Sinequan -) 100 mg PO HS [facility] Last Admin: 12/08/19 21:36 Dose: 100 mg Furosemide (Lasix -) 20 mg PO BIDLASIX [facility] Last Admin: 12/09/19 06:40 Dose: 20 mg Heparin Sodium (Porcine) (Heparin -) 5,000 unit SQ BID [facility] Last Admin: 12/08/19 21:35 Dose: 5,000 unit Insulin Aspart (Novolog Vial Sliding Scale -) 1 vial SQ ACHS [facility]; Protocol Last Admin: 12/09/19 06:41 Dose: 2 units Insulin Detemir (Levemir Vial) 35 units SQ AM [facility] Last Admin: 12/09/19 06:40 Dose: 35 units Latanoprost (Xalatan 0.005% Eye Drops -) 1 drop OU HS [facility] Last Admin: 12/08/19 21:37 Dose: 1 drop Levothyroxine Sodium (Synthroid -) 50 mcg PO AM [facility] Last Admin: 12/09/19 06:40 Dose: 50 mcg Melatonin (Melatonin) 5 mg PO HS PRN PRN Reason: INSOMNIA Last Admin: 12/07/19 03:47 Dose: 5 mg Miscellaneous (Lidoderm Patch Removal) 1 each MC DAILY@2200 [facility] Last Admin: 12/08/19 22:17 Dose: Not Given Non-Formulary Medication (Emtricitab/Rilpiviri/Tenof Ala [Odefsey Tablet]) 1 each PO DAILY@0800 [facility] Last Admin: 12/08/19 07:59 Dose: 1 each Ondansetron HCl (Zofran Injection) 4 mg IVPUSH Q6H PRN PRN Reason: NAUSEA AND/OR VOMITING Oxycodone HCl (Roxicodone -) 10 mg PO Q4H PRN PRN Reason: PAIN LEVEL 6-10 Last Admin: 12/08/19 22:18 Dose: 10 mg Pantoprazole Sodium (Protonix -) 40 mg PO DAILY [facility] Last Admin: 12/08/19 10:15 Dose: 40 mg Polyethylene Glycol (Miralax (For Daily Use) -) 17 gm PO BID [facility] Last Admin: 12/08/19 21:45 Dose: 17 gm Rosuvastatin Calcium (Crestor -) 20 mg PO HS [facility] Last Admin: 12/08/19 21:34 Dose: 20 mg Timolol Maleate (Timoptic 0.5%) 1 drop OU BID [facility] Last Admin: 12/08/19 21:37 Dose: 1 drop Zolpidem Tartrate (Ambien -) 10 mg PO HS PRN PRN Reason: INSOMNIA Last Admin: 12/08/19 22:17 Dose: 10 mg ASSESSMENT AND PLAN:64 yo F with a PMHx of DM, HIV, HTN, HLD, CAD s/p CABG 2017 , presenting with a mechanical fall found to have right proximal displaced humeral fracture POD#3 s/p right humerus IM [facility]. Plan: Continue current management, IV hydration normal saline 75 cc. Problem List - Problems (1) Right supracondylar humerus fracture Assessment/Plan: Status post IM nail, Postoperative day third today third continue pain management Problems reviewed: Yes Code(s): S42.411A - DISPL SIMPLE SUPRCNDL FX W/O INTRCNDL FX R HUMERUS, INIT (2) ERIKA (acute kidney injury) Assessment/Plan: Will start IV normal saline 75 cc/h follow BMP follow-up nephrology recommendations Problems reviewed: Yes Code(s): N17.9 - ACUTE KIDNEY FAILURE, UNSPECIFIED (3) HIV disease Assessment/Plan: Continue all home medication Problems reviewed: Yes Code(s): B20 - HUMAN IMMUNODEFICIENCY VIRUS [HIV] DISEASE (4) Leukocytosis Assessment/Plan: Stable afebrile most likely reactive will observe Problems reviewed: Yes Code(s): D72.829 - ELEVATED WHITE BLOOD CELL COUNT, UNSPECIFIED Qualifiers: Leukocytosis type: unspecified Qualified Code(s): D72.829 - Elevated white blood cell count, unspecified (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 Assessment/Plan: Optimize glycemic control Problems reviewed: Yes Code(s): E11.29 - TYPE 2 DIABETES MELLITUS W OTH DIABETIC KIDNEY COMPLICATION (6) HIV (human immunodeficiency virus infection) Assessment/Plan: No acute issue continue all home medication Problems reviewed: Yes Code(s): Z21 - ASYMPTOMATIC HUMAN IMMUNODEFICIENCY VIRUS INFECTION STATUS (7) HLD (hyperlipidemia) Assessment/Plan: Continue statin Problems reviewed: Yes Code(s): E78.5 - HYPERLIPIDEMIA, UNSPECIFIED (8) Hypothyroid Assessment/Plan: Continue levothyroxine Problems reviewed: Yes Code(s): E03.9 - HYPOTHYROIDISM, UNSPECIFIED
[2019-12-09] MEDS: oxyCODONE HCL 5 MG TABLET PO PRN ×3 (09:07→21:43)
[2019-12-09] MEDS: CITALOPRAM HYDROBROMIDE 20 MG TABLET PO SCH (10:58)
[2019-12-09] MEDS: TIMOLOL 0.5% OPHTHALMIC SOL 5 ML BOTTLE OU SCH ×2 (10:58→21:37)
[2019-12-09] MEDS: BRIMONIDINE TARTRATE 0.2% OPHTHALMIC 5 ML BOTTLE OU SCH ×2 (10:58→21:42)
[2019-12-09] MEDS: PANTOPRAZOLE 40 MG TABLET PO SCH (10:58)
[2019-12-09] MEDS: CARVEDILOL 3.125 MG TABLET (FP) PO SCH ×2 (10:58→21:42)
[2019-12-09] MEDS: HEPARIN NA (PORCINE) 5,000 UNITS/ML 1ML VIAL SQ SCH ×2 (10:59→21:39)
[2019-12-09] MEDS ORDERED: SODIUM CHLORIDE 1,000 ML IV SCH (11:00)
[2019-12-09] MEDS: POLYETHYLENE GLYCOL 3350 119 GM BTL PO SCH ×2 (11:01→21:43)
--- NOTE | 2019-12-09 11:24 | PN ---
Physical Exam: SUBJECTIVE: Patient seen and examined. Complains of pain of RUE. No events overnight. Creatinine bump to 1.9. OBJECTIVE: Vital Signs Period Temp Pulse Resp BP Sys/Isbell Pulse Ox Last 24 Hr 97.4 F-98.3 F 91-97 18-20 109-142/73-79 99 GENERAL: a/o x 3, in nad HEAD: Normal with no signs of trauma. EYES:extraocular movements intact, sclera anicteric EARS, NOSE, THROAT: Moist mucous membranes. NECK: supple without lymphadenopathy, JVD LUNGS: Lungs CTA b/l HEART: RRR ABDOMEN: obese, +BS, nt, nd MUSCULOSKELETAL: dry dressing on RUE. restricted ROM from pain LOWER EXTREMITIES: 2+ pulses, No peripheral edema. Laboratory Results - last 24 hr 12/08/19 12/08/19 12/08/19 12:50 17:14 21:40 WBC RBC Hgb Hct MCV MCH MCHC RDW Plt Count MPV Absolute Neuts (auto) Neutrophils % Lymphocytes % Monocytes % Eosinophils % Basophils % Nucleated RBC % Sodium Potassium Chloride Carbon Dioxide Anion Gap BUN Creatinine Est GFR (CKD-EPI)AfAm Est GFR (CKD-EPI)NonAf POC Glucometer 242 293 353 Random Glucose Calcium Magnesium 12/09/19 12/09/19 12/09/19 05:10 05:10 05:46 WBC 14.0 H RBC 3.83 Hgb 11.4 Hct 34.3 MCV 89.5 MCH 29.7 MCHC 33.2 RDW 13.4 Plt Count 271 MPV 8.5 Absolute Neuts (auto) 6.0 Neutrophils % 42.8 Lymphocytes % 48.9 H Monocytes % 6.1 Eosinophils % 1.8 Basophils % 0.4 Nucleated RBC % 0 Sodium 135 L Potassium 4.3 Chloride 103 Carbon Dioxide 28 Anion Gap 4 L BUN 38.2 H Creatinine 1.9 H Est GFR (CKD-EPI)AfAm 31.73 Est GFR (CKD-EPI)NonAf 27.38 POC Glucometer 193 Random Glucose 265 H Calcium 9.0 Magnesium 2.1 12/09/19 10:55 WBC RBC Hgb Hct MCV MCH MCHC RDW Plt Count MPV Absolute Neuts (auto) Neutrophils % Lymphocytes % Monocytes % Eosinophils % Basophils % Nucleated RBC % Sodium Potassium Chloride Carbon Dioxide Anion Gap BUN Creatinine Est GFR (CKD-EPI)AfAm Est GFR (CKD-EPI)NonAf POC Glucometer 254 Random Glucose Calcium Magnesium Active Medications Generic Name Dose Route Start Last Admin Trade Name Freq PRN Reason Stop Dose Admin Acetaminophen 1,000 mg 12/06/19 15:57 12/07/19 04:43 Ofirmev Injection - IVPB 1,000 mg Q6H PRN Administration MODERATE PAIN Acetaminophen 650 mg 12/06/19 16:01 Tylenol - PO Q4H PRN Pain-PACU ORDER X 2 DOSES ONLY Brimonidine Tartrate 1 drop 12/06/19 22:00 12/09/19 10:58 Alphagan 0.2% - OU 1 drop BID [facility] Administration Carvedilol 3.125 mg 12/06/19 22:00 12/09/19 10:58 Coreg - PO 3.125 mg BID [facility] Administration Citalopram Hydrobromide 40 mg 12/07/19 10:00 12/09/19 10:58 Celexa - PO 40 mg DAILY [facility] Administration Doxepin HCl 100 mg 12/07/19 22:00 12/08/19 21:36 Sinequan - PO 100 mg HS [facility] Administration Furosemide 20 mg 12/07/19 06:00 12/09/19 06:40 Lasix - PO 20 mg BIDLASIX [facility] Administration Heparin Sodium (Porcine) 5,000 unit 12/06/19 22:00 12/09/19 10:59 Heparin - SQ 5,000 unit BID [facility] Administration Sodium Chloride 1,000 mls @ 75 mls/hr 12/09/19 11:00 Normal Saline - IV ASDIR [facility] Insulin Aspart 1 vial 12/06/19 16:30 12/09/19 10:59 Novolog Vial Sliding Scale - SQ 6 units ACHS [facility] Administration Protocol Insulin Detemir 35 units 12/08/19 08:45 12/09/19 06:40 Levemir Vial SQ 35 units AM [facility] Administration Latanoprost 1 drop 12/06/19 22:00 12/08/19 21:37 Xalatan 0.005% Eye Drops - OU 1 drop HS [facility] Administration Levothyroxine Sodium 50 mcg 12/07/19 07:00 12/09/19 06:40 Synthroid - PO 50 mcg AM [facility] Administration Melatonin 5 mg 12/07/19 03:40 12/07/19 03:47 Melatonin PO 5 mg HS PRN Administration INSOMNIA Miscellaneous 1 each 12/07/19 22:00 12/08/19 22:17 Lidoderm Patch Removal MC Not Given DAILY@2200 [facility] Non-Formulary Medication 1 each 12/07/19 08:00 12/09/19 08:02 Emtricitab/Rilpiviri/Tenof Ala [Odefsey Tablet] PO 1 each DAILY@0800 [facility] Administration Ondansetron HCl 4 mg 12/06/19 16:01 Zofran Injection IVPUSH Q6H PRN NAUSEA AND/OR VOMITING Oxycodone HCl 10 mg 12/07/19 10:09 12/09/19 09:07 Roxicodone - PO 10 mg Q4H PRN Administration PAIN LEVEL 6-10 Pantoprazole Sodium 40 mg 12/07/19 10:00 12/09/19 10:58 Protonix - PO 40 mg DAILY [facility] Administration Polyethylene Glycol 17 gm 12/06/19 22:00 12/09/19 11:01 Miralax (For Daily Use) - PO 17 gm BID [facility] Administration Rosuvastatin Calcium 20 mg 12/06/19 22:00 12/08/19 21:34 Crestor - PO 20 mg HS [facility] Administration Timolol Maleate 1 drop 12/06/19 22:00 12/09/19 10:58 Timoptic 0.5% OU 1 drop BID [facility] Administration Zolpidem Tartrate 10 mg 12/06/19 15:57 12/08/19 22:17 Ambien - PO 10 mg HS PRN Administration INSOMNIA ASSESSMENT/PLAN: # R Proximal displaced Humeral fracture from a fall mechanical fall - POD#3 s/p right humerus IM [place] -ortho on board -plavix currently held. restart when ok with ortho -pain control -PT consult #Leukocytosis -likely reactive. downtrending -FU am labs #ERIKA on CKD -cr up to 1.9 from 1.5 -renal consult noted and appreciated -renal/bladder US noted -start IV fluids NS @ 75ml. -FU echo #DM -SSI -hold home meds #HIV -cont. Home meds #HTN -cont. coreg, hctz #CHF -dc lasix. patient on hctz. -FU echo #Hypothyroidosm -cont. Levothyroxin #HLD/CAD -cont. Crestor 20mg -Restart plavix when ok with ortho #DVT ppx hep sq BID #FEN -start IV fluids NS @ 75ml/hour -diabetic diet -monitor lytes Visit type - Emergency Visit Emergency Visit: Yes ED Registration Date: 12/03/19 Care time: The patient presented to the Emergency Department on the above date and was hospitalized for further evaluation of their emergent condition. - New Patient This patient is new to me today: Yes Date on this admission: 12/09/19 - Critical Care Critical Care patient: No ATTENDING PHYSICIAN STATEMENT I saw and evaluated the patient. I reviewed the resident's note and discussed the case with the resident. I agree with the resident's findings and plan as documented. SUBJECTIVE: OBJECTIVE: ASSESSMENT AND PLAN:
--- NOTE | 2019-12-09 11:35 | ECHO ---
Name: SANJUANITA APODACA Exam:Adult Echocardiogram Study Date: 12/09/2019 09:51 AM Age: 64 yrs Height: 69 in Weight: 222 lb BSA: 2.2 m2 MMode/2D Measurements & Calculations Ao root diam: 3.1 cm LVOT diam: 2.1 cm LA dimension: 2.8 cm LVLd ap4: 6.4 cm SV(MOD-sp4): 19.0 ml EDV(MOD-sp4): 64.0 ml LVLs ap4: 5.3 cm ESV(MOD-sp4): 45.0 ml RV S Larry: 13.4 cm/sec Doppler Measurements & Calculations MV E max larry: 57.8 cm/sec Ao V2 max: 109.0 cm/sec MV A max larry: 110.1 cm/sec Ao max P.8 mmHg MV E/A: 0.52 MV dec time: 0.11 sec CLAUDIO(V,D): 2.7 cm2 LV V1 max P.7 mmHg PA V2 max: 97.7 cm/sec LV V1 max: 82.7 cm/sec PA max P.8 mmHg Med Peak E' Larry: 4.9 cm/sec Med E/e': 11.7 Lat Peak E' Larry: 6.8 cm/sec Lat E/e': 8.5 Procedure A complete two-dimensional transthoracic echocardiogram was performed (2D, M-mode, Doppler and color flow Doppler). Technically limited study. Left Ventricle The left ventricle is normal in size. Left ventricular systolic function is mild to moderately reduce d. Ejection Fraction = 40-45%. Grade I diastolic dysfunction, (abnormal relaxation pattern). Ratio E/E'= 11. There is mild to moderate global hypokinesis of the left ventricle. Right Ventricle The right ventricle is normal size. The right ventricular systolic function is mildly reduced. Atria The left atrial size is normal. Right atrial size is normal. Mitral Valve The mitral valve is normal in structure and function. There is no mitral regurgitation noted. Tricuspid Valve The tricuspid valve is normal in structure and function. No tricuspid regurgitation. Aortic Valve There is mild aortic sclerosis.;. No aortic regurgitation is present. Pulmonic Valve The pulmonic valve is not well visualized. Great Vessels The aortic root is normal size. Pericardium/Pleura There is no pericardial effusion. Interpretation Summary Technically limited study The left ventricle is normal in size. Left ventricular systolic function is mild to moderately reduced. There is mild to moderate global hypokinesis of the left ventricle. Ejection Fraction = 40-45%. Grade I diastolic dysfunction, (abnormal relaxation pattern). Ratio E/E'= 11 The right ventricular systolic function is mildly reduced. The left atrial size is normal. Right atrial size is normal. There is mild aortic sclerosis. No significant valvular regurgitations There is no pericardial effusion. Viraj Geronimo MD 12/09/2019 11:34 AM
--- NOTE | 2019-12-09 15:36 | PN ---
Progress Note (short form) - Note Progress Note: Ortho Pt seen and examined s/p right proximal humerus IM [facility] pod #3 Selected Entries 12/09/19 14:00 Temperature 98.6 F Pulse Rate 85 Respiratory 20 Rate Blood Pressure 127/70 Laboratory Tests 12/09/19 05:10 WBC 14.0 H Hgb 11.4 Hct 34.3 Plt Count 271 dressing c/d/i, good rom of elbow, wrist and hand nvi a/p ROM exercises as tolerated sling for comfort pain control ok to d/c from ortho pov fu in 7-10 days
--- NOTE | 2019-12-09 16:10 | PN ---
Progress Note, Physician History of Present Illness: Pt seen and examined at bedside. She denies shortness of breath. - Current Medication List Current Medications: Active Medications Acetaminophen (Ofirmev Injection -) 1,000 mg IVPB Q6H PRN PRN Reason: MODERATE PAIN Last Admin: 12/07/19 04:43 Dose: 1,000 mg Acetaminophen (Tylenol -) 650 mg PO Q4H PRN PRN Reason: Pain-PACU ORDER X 2 DOSES ONLY Brimonidine Tartrate (Alphagan 0.2% -) 1 drop OU BID [facility] Last Admin: 12/09/19 10:58 Dose: 1 drop Carvedilol (Coreg -) 3.125 mg PO BID [facility] Last Admin: 12/09/19 10:58 Dose: 3.125 mg Citalopram Hydrobromide (Celexa -) 40 mg PO DAILY [facility] Last Admin: 12/09/19 10:58 Dose: 40 mg Doxepin HCl (Sinequan -) 100 mg PO HS [facility] Last Admin: 12/08/19 21:36 Dose: 100 mg Furosemide (Lasix -) 20 mg PO BIDLASIX [facility] Last Admin: 12/09/19 13:25 Dose: 20 mg Heparin Sodium (Porcine) (Heparin -) 5,000 unit SQ BID [facility] Last Admin: 12/09/19 10:59 Dose: 5,000 unit Sodium Chloride (Normal Saline -) 1,000 mls @ 75 mls/hr IV ASDIR [facility] Last Admin: 12/09/19 13:03 Dose: 75 mls/hr Insulin Aspart (Novolog Vial Sliding Scale -) 1 vial SQ ACHS [facility]; Protocol Last Admin: 12/09/19 10:59 Dose: 6 units Insulin Detemir (Levemir Vial) 35 units SQ AM [facility] Last Admin: 12/09/19 06:40 Dose: 35 units Latanoprost (Xalatan 0.005% Eye Drops -) 1 drop OU HS [facility] Last Admin: 12/08/19 21:37 Dose: 1 drop Levothyroxine Sodium (Synthroid -) 50 mcg PO AM [facility] Last Admin: 12/09/19 06:40 Dose: 50 mcg Melatonin (Melatonin) 5 mg PO HS PRN PRN Reason: INSOMNIA Last Admin: 12/07/19 03:47 Dose: 5 mg Miscellaneous (Lidoderm Patch Removal) 1 each [facility] DAILY@2200 [facility] Last Admin: 12/08/19 22:17 Dose: Not Given Non-Formulary Medication (Emtricitab/Rilpiviri/Tenof Ala [Odefsey Tablet]) 1 each PO DAILY@0800 [facility] Last Admin: 12/09/19 08:02 Dose: 1 each Ondansetron HCl (Zofran Injection) 4 mg IVPUSH Q6H PRN PRN Reason: NAUSEA AND/OR VOMITING Oxycodone HCl (Roxicodone -) 10 mg PO Q4H PRN PRN Reason: PAIN LEVEL 6-10 Last Admin: 12/09/19 14:56 Dose: 10 mg Pantoprazole Sodium (Protonix -) 40 mg PO DAILY [facility] Last Admin: 12/09/19 10:58 Dose: 40 mg Polyethylene Glycol (Miralax (For Daily Use) -) 17 gm PO BID [facility] Last Admin: 12/09/19 11:01 Dose: 17 gm Rosuvastatin Calcium (Crestor -) 20 mg PO HS [facility] Last Admin: 12/08/19 21:34 Dose: 20 mg Timolol Maleate (Timoptic 0.5%) 1 drop OU BID [facility] Last Admin: 12/09/19 10:58 Dose: 1 drop Zolpidem Tartrate (Ambien -) 10 mg PO HS PRN PRN Reason: INSOMNIA Last Admin: 12/08/19 22:17 Dose: 10 mg - Objective Vital Signs: Vital Signs Temperature 98.6 F 12/09/19 14:00 Pulse Rate 85 12/09/19 14:00 Respiratory Rate 20 12/09/19 14:00 Blood Pressure 127/70 12/09/19 14:00 O2 Sat by Pulse Oximetry (%) 99 12/09/19 09:00 Constitutional: Yes: Calm Eyes: Yes: Conjunctiva Clear HENT: Yes: Atraumatic Cardiovascular: Yes: S1, S2 Respiratory: Yes: CTA Bilaterally Gastrointestinal: Yes: WNL Genitourinary: Yes: WNL Musculoskeletal: Yes: Other (right shoulder pain) Edema: No Neurological: Yes: Oriented Psychiatric: Yes: Oriented Labs: CBC, BMP 12/09/19 05:10 12/09/19 05:10 INR, PTT INR 1.01 (0.83-1.09) 12/06/19 07:36 Assessment/Plan Current Medications Generic Name Dose Route Start Last Admin Trade Name Freq PRN Reason Stop Dose Admin Acetaminophen 1,000 mg 12/06/19 15:57 12/07/19 04:43 Ofirmev Injection - IVPB 1,000 mg Q6H PRN Administration MODERATE PAIN Acetaminophen 650 mg 12/06/19 16:01 Tylenol - PO Q4H PRN Pain-PACU ORDER X 2 DOSES ONLY Brimonidine Tartrate 1 drop 12/06/19 22:00 12/09/19 10:58 Alphagan 0.2% - OU 1 drop BID [facility] Administration Carvedilol 3.125 mg 12/06/19 22:00 12/09/19 10:58 Coreg - PO 3.125 mg BID [facility] Administration Citalopram Hydrobromide 40 mg 12/07/19 10:00 12/09/19 10:58 Celexa - PO 40 mg DAILY [facility] Administration Doxepin HCl 100 mg 12/07/19 22:00 12/08/19 21:36 Sinequan - PO 100 mg HS [facility] Administration Furosemide 20 mg 12/07/19 06:00 12/09/19 13:25 Lasix - PO 20 mg BIDLASIX [facility] Administration Heparin Sodium (Porcine) 5,000 unit 12/06/19 22:00 12/09/19 10:59 Heparin - SQ 5,000 unit BID [facility] Administration Sodium Chloride 1,000 mls @ 75 mls/hr 12/09/19 11:00 12/09/19 13:03 Normal Saline - IV 75 mls/hr ASD[facility] Administration Insulin Aspart 1 vial 12/06/19 16:30 12/09/19 10:59 Novolog Vial Sliding Scale - SQ 6 units ACHS [facility] Administration Protocol Insulin Detemir 35 units 12/08/19 08:45 12/09/19 06:40 Levemir Vial SQ 35 units AM [facility] Administration Latanoprost 1 drop 12/06/19 22:00 12/08/19 21:37 Xalatan 0.005% Eye Drops - OU 1 drop HS [facility] Administration Levothyroxine Sodium 50 mcg 12/07/19 07:00 12/09/19 06:40 Synthroid - PO 50 mcg AM [facility] Administration Melatonin 5 mg 12/07/19 03:40 12/07/19 03:47 Melatonin PO 5 mg HS PRN Administration INSOMNIA Miscellaneous 1 each 12/07/19 22:00 12/08/19 22:17 Lidoderm Patch Removal MC Not Given DAILY@2200 [facility] Non-Formulary Medication 1 each 12/07/19 08:00 12/09/19 08:02 Emtricitab/Rilpiviri/Tenof Ala [Odefsey Tablet] PO 1 each DAILY@0800 [facility] Administration Ondansetron HCl 4 mg 12/06/19 16:01 Zofran Injection IVPUSH Q6H PRN NAUSEA AND/OR VOMITING Oxycodone HCl 10 mg 12/07/19 10:09 12/09/19 14:56 Roxicodone - PO 10 mg Q4H PRN Administration PAIN LEVEL 6-10 Pantoprazole Sodium 40 mg 12/07/19 10:00 12/09/19 10:58 Protonix - PO 40 mg DAILY [facility] Administration Polyethylene Glycol 17 gm 12/06/19 22:00 12/09/19 11:01 Miralax (For Daily Use) - PO 17 gm BID [facility] Administration Rosuvastatin Calcium 20 mg 12/06/19 22:00 12/08/19 21:34 Crestor - PO 20 mg HS [facility] Administration Timolol Maleate 1 drop 12/06/19 22:00 12/09/19 10:58 Timoptic 0.5% OU 1 drop BID [facility] Administration Zolpidem Tartrate 10 mg 12/06/19 15:57 12/08/19 22:17 Ambien - PO 10 mg HS PRN Administration INSOMNIA Impression 1. ERIKA 2. hx urinary retention 3. hld 4. HIV 5. cad 6. constipation 7. 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
[2019-12-09] MEDS ORDERED: PT OWN MED DRAWER 7, Y5N ONE ×2 (21:15→21:31)
[2019-12-09] MEDS: LATANOPROST 0.005% OPHTH SOLN 2.5ML BOTTLE OU SCH (21:37)
[2019-12-09] MEDS: ZOLPIDEM TARTRATE 5 MG TABLET PO PRN (21:41)
[2019-12-09] MEDS: ROSUVASTATIN CA 20 MG TABLET (FP) PO SCH (21:42)
[2019-12-09] MEDS: DOXEPIN HCL 50 MG CAPSULE PO SCH (21:43)
[2019-12-09] MEDS: LIDOCAINE PATCH REMOVAL MC SCH (21:50)
[2019-12-10] MEDS: oxyCODONE HCL 5 MG TABLET PO PRN ×2 (03:30→22:59)
[2019-12-10] MEDS: INSULIN (LEVEMIR) 100 UNITS/ML UNITS SQ SCH (06:38)
[2019-12-10] MEDS: INSULIN SLIDING SCALE (NOVOLOG) 1 VIAL SQ SCH ×4 (06:38→22:58)
[2019-12-10] MEDS: LEVOTHYROXINE NA 50 MCG TABLET (FP) PO SCH (06:38)
[2019-12-10 07:13] LABS: BASO % 0.9 % (0-2.0); EOS % 1.4 % (0-4.5); HEMATOCRIT 33.5 % (32.4-45.2); HEMOGLOBIN 11.2 GM/dL (10.7-15.3); LYMPH % 47.8 % (8-40); MCH 29.9 pg (25.7-33.7); MCHC 33.3 g/dl (32.0-36.0); MEAN CELL VOLUME 89.6 fl (80-96); MEAN PLT VOLUME 8.2 fl (7.5-11.1); MONO % 5.5 % (3.8-10.2); NEUT % 44.4 % (42.8-82.8); PLATELET COUNT 301 K/MM3 (134-434); RBC 3.74 M/mm3 (3.60-5.2); RDW 13.3 % (11.6-15.6); WHITE BLOOD COUNT 14.6 K/mm3 (4.0-10.0)
--- NOTE | 2019-12-10 07:42 | PN ---
Teaching Attending Note Name of Resident: Deep Reyes ATTENDING PHYSICIAN STATEMENT I saw and evaluated the patient. I reviewed the resident's note and discussed the case with the resident. I agree with the resident's findings and plan as documented. SUBJECTIVE: No new complaint, Hemodynamically stable OBJECTIVE: Vital Signs Temperature 97.8 F 12/10/19 06:00 Pulse Rate 86 12/10/19 06:00 Respiratory Rate 20 12/10/19 06:00 Blood Pressure 130/73 12/10/19 06:00 O2 Sat by Pulse Oximetry (%) 96 12/09/19 21:00 General: Elderly woman, comfortable, not in distress HEENT; mucous membranes moist, no anemia, no jaundice, PERRLA, no nystagmus Neck: No JVD, supple, no bruit, thyroid palpably normal, normal carotid pulsations. Chest: Nontender, minimal basal rales. CVS: S1-S2 regular no murmur/gallop/rub Abdomen: Nondistended, soft, bowel sounds present. Extremities: Right upper extremity status post IM nail postoperative day thyroid no edema., No cough tenderness, pulses present FRAME FIXER: AO X3 , no gross motor sensory deficit Active Medications Acetaminophen (Ofirmev Injection -) 1,000 mg IVPB Q6H PRN PRN Reason: MODERATE PAIN Last Admin: 12/07/19 04:43 Dose: 1,000 mg Acetaminophen (Tylenol -) 650 mg PO Q4H PRN PRN Reason: Pain-PACU ORDER X 2 DOSES ONLY Brimonidine Tartrate (Alphagan 0.2% -) 1 drop OU BID [facility] Last Admin: 12/09/19 21:42 Dose: 1 drop Carvedilol (Coreg -) 3.125 mg PO BID [facility] Last Admin: 12/09/19 21:42 Dose: 3.125 mg Citalopram Hydrobromide (Celexa -) 40 mg PO DAILY [facility] Last Admin: 12/09/19 10:58 Dose: 40 mg Doxepin HCl (Sinequan -) 100 mg PO HS [facility] Heparin Sodium (Porcine) (Heparin -) 5,000 unit SQ BID [facility] Last Admin: 12/09/19 21:39 Dose: 5,000 unit Insulin Aspart (Novolog Vial Sliding Scale -) 1 vial SQ [facility]; Protocol Last Admin: 12/10/19 06:38 Dose: 2 units Insulin Detemir (Levemir Vial) 35 units SQ AM [facility] Last Admin: 12/10/19 06:38 Dose: 35 units Latanoprost (Xalatan 0.005% Eye Drops -) 1 drop OU HS [facility] Last Admin: 12/09/19 21:37 Dose: 1 drop Levothyroxine Sodium (Synthroid -) 50 mcg PO AM [facility] Last Admin: 12/10/19 06:38 Dose: 50 mcg Melatonin (Melatonin) 5 mg PO HS PRN PRN Reason: INSOMNIA Last Admin: 12/07/19 03:47 Dose: 5 mg Miscellaneous (Lidoderm Patch Removal) 1 each MC DAILY@2200 [facility] Last Admin: 12/09/19 21:50 Dose: Not Given Non-Formulary Medication (Emtricitab/Rilpiviri/Tenof Ala [Odefsey Tablet]) 1 each PO DAILY@0800 [facility] Last Admin: 12/09/19 08:02 Dose: 1 each Ondansetron HCl (Zofran Injection) 4 mg IVPUSH Q6H PRN PRN Reason: NAUSEA AND/OR VOMITING Oxycodone HCl (Roxicodone -) 10 mg PO Q4H PRN PRN Reason: PAIN LEVEL 6-10 Last Admin: 12/10/19 03:30 Dose: 10 mg Pantoprazole Sodium (Protonix -) 40 mg PO DAILY [facility] Last Admin: 12/09/19 10:58 Dose: 40 mg Polyethylene Glycol (Miralax (For Daily Use) -) 17 gm PO BID [facility] Last Admin: 12/09/19 21:43 Dose: 17 gm Rosuvastatin Calcium (Crestor -) 20 mg PO HS [facility] Last Admin: 12/09/19 21:42 Dose: 20 mg Timolol Maleate (Timoptic 0.5%) 1 drop OU BID [facility] Last Admin: 12/09/19 21:37 Dose: 1 drop Zolpidem Tartrate (Ambien -) 10 mg PO HS PRN PRN Reason: INSOMNIA Last Admin: 12/09/19 21:41 Dose: 10 mg 64 yo F with a PMHx of DM, HIV, HTN, HLD, CAD s/p CABG 2017, presenting with a mechanical fall found to have right proximal displaced humeral fracture POD#4 s/ p right humerus IM clayton. ASSESSMENT AND PLAN: Follow-up BMP if creatinine is baseline can be discharged home after evaluation by physical therapy. Problem List - Problems (1) Right supracondylar humerus fracture Assessment/Plan: Status post IM nail, Postoperative day 4th continue pain management, orthopedics cleared to DC. 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 Assessment/Plan: Optimize glycemic control Code(s): E11.29 - TYPE 2 DIABETES MELLITUS W OTH DIABETIC KIDNEY COMPLICATION (5) HIV (human immunodeficiency virus infection) Assessment/Plan: No acute issue continue all home medication Code(s): Z21 - ASYMPTOMATIC HUMAN IMMUNODEFICIENCY VIRUS INFECTION STATUS (6) HLD (hyperlipidemia) Assessment/Plan: Continue statin Code(s): E78.5 - HYPERLIPIDEMIA, UNSPECIFIED (7) Hypothyroid Assessment/Plan: Continue levothyroxine Code(s): E03.9 - HYPOTHYROIDISM, UNSPECIFIED (8) CAD (coronary artery disease) Assessment/Plan: Status post stent hemodynamically stable denies any chest pain continue statin, beta-blockers, Plavix Problems reviewed: Yes Code(s): I25.10 - ATHSCL HEART DISEASE OF [place] CORONARY ARTERY W/O ANG PCTRS (9) HTN (hypertension) Assessment/Plan: Well-controlled continue all home medications Problems reviewed: Yes Code(s): I10 - ESSENTIAL (PRIMARY) HYPERTENSION (10) Systolic heart failure secondary to coronary artery disease Assessment/Plan: Patient has history of CAD, hypertension ejection fraction 45 to 50% most likely compensated heart failure with reduced/borderline ejection fraction needs optimization of CHF therapy, already on beta-felicita, statin and Plavix, patient has CKD stage III currently mild ERIKA, ACEI/ARBS intubated as an outpatient. I Problems reviewed: Yes Code(s): I50.20 - UNSPECIFIED SYSTOLIC (CONGESTIVE) HEART FAILURE; I25.10 - ATHSCL HEART DISEASE OF [place] CORONARY ARTERY W/O ANG PCTRS (11) Acute kidney injury superimposed on CKD Assessment/Plan: Baseline CKD stage III rising BUN/creatinine, nephrology input appreciated will follow up. Patient was recently admitted with subacute obstruction, with urinary retention in November 2019, patient was discharged home on November 20, 2019, readmitted with fall developed ERIKA we will follow-up bladder scan. Code(s): N17.9 - ACUTE KIDNEY FAILURE, UNSPECIFIED; N18.9 - CHRONIC KIDNEY DISEASE, UNSPECIFIED
[2019-12-10 07:54] LABS: ALBUMIN 2.3 g/dl (3.4-5.0); BILIRUBIN,TOTAL 0.6 mg/dL (0.2-1); BLOOD UREA NITROGEN 34.5 mg/dL (7-18); CALCIUM 9.2 mg/dL (8.5-10.1); CREATININE 1.9 mg/dL (0.55-1.3); POTASSIUM 4.3 mmol/L (3.5-5.1); TOT PROT 6.6 g/dl (6.4-8.2)
[2019-12-10] MEDS: CITALOPRAM HYDROBROMIDE 20 MG TABLET PO SCH (10:09)
[2019-12-10] MEDS: CARVEDILOL 3.125 MG TABLET (FP) PO SCH ×2 (10:09→22:58)
[2019-12-10] MEDS: CLOPIDOGREL BISULFATE 75 MG TABLET (FP) PO SCH (10:09)
[2019-12-10] MEDS: HEPARIN NA (PORCINE) 5,000 UNITS/ML 1ML VIAL SQ SCH ×2 (10:09→22:43)
[2019-12-10] MEDS: PANTOPRAZOLE 40 MG TABLET PO SCH (10:09)
[2019-12-10] MEDS: BRIMONIDINE TARTRATE 0.2% OPHTHALMIC 5 ML BOTTLE OU SCH ×2 (10:14→22:42)
[2019-12-10] MEDS: POLYETHYLENE GLYCOL 3350 119 GM BTL PO SCH ×2 (10:15→22:58)
[2019-12-10] MEDS: TIMOLOL 0.5% OPHTHALMIC SOL 5 ML BOTTLE OU SCH ×2 (10:15→22:43)
--- NOTE | 2019-12-10 13:03 | PN ---
Progress Note, Physician History of Present Illness: Pt seen and examined at bedside. She is awake and alert. She denies shortness of breath. - Current Medication List Current Medications: Active Medications Acetaminophen (Ofirmev Injection -) 1,000 mg IVPB Q6H PRN PRN Reason: MODERATE PAIN Last Admin: 12/07/19 04:43 Dose: 1,000 mg Acetaminophen (Tylenol -) 650 mg PO Q4H PRN PRN Reason: Pain-PACU ORDER X 2 DOSES ONLY Brimonidine Tartrate (Alphagan 0.2% -) 1 drop OU BID [facility]CLUDE 234 BEDS AT [facility] Last Admin: 12/10/19 10:14 Dose: 1 drop Carvedilol (Coreg -) 3.125 mg PO BID [facility]CLUDE 234 BEDS AT [facility] Last Admin: 12/10/19 10:09 Dose: 3.125 mg Citalopram Hydrobromide (Celexa -) 40 mg PO DAILY [facility]CLUDE 234 BEDS AT [facility] Last Admin: 12/10/19 10:09 Dose: 40 mg Clopidogrel Bisulfate (Plavix -) 75 mg PO DAILY [facility]CLUDE 234 BEDS AT [facility] Last Admin: 12/10/19 10:09 Dose: 75 mg Doxepin HCl (Sinequan -) 100 mg PO [facility] Heparin Sodium (Porcine) (Heparin -) 5,000 unit SQ BID [facility] 234 BEDS AT [facility] Last Admin: 12/10/19 10:09 Dose: 5,000 unit Insulin Aspart (Novolog Vial Sliding Scale -) 1 vial SQ [facility] COUNTS INCLUDE 234 BEDS AT [facility]; Protocol Last Admin: 12/10/19 12:31 Dose: 6 units Insulin Detemir (Levemir Vial) 35 units SQ AM [facility]S [facility]CLUDE 234 BEDS AT [facility] Last Admin: 12/10/19 06:38 Dose: 35 units Latanoprost (Xalatan 0.005% Eye Drops -) 1 drop OU HS [facility]S INCLUDE 234 BEDS AT [facility] Last Admin: 12/09/19 21:37 Dose: 1 drop Levothyroxine Sodium (Synthroid -) 50 mcg PO AM [facility]CLUDE 234 BEDS AT [facility] Last Admin: 12/10/19 06:38 Dose: 50 mcg Melatonin (Melatonin) 5 mg PO HS PRN PRN Reason: INSOMNIA Last Admin: 12/07/19 03:47 Dose: 5 mg Miscellaneous (Lidoderm Patch Removal) 1 each MC DAILY@2200 [facility]CLUDE 234 BEDS AT [facility] Last Admin: 12/09/19 21:50 Dose: Not Given Non-Formulary Medication (Emtricitab/Rilpiviri/Tenof Ala [Odefsey Tablet]) 1 each PO DAILY@0800 [facility]CLUDE 234 BEDS AT [facility] Last Admin: 12/10/19 08:31 Dose: 1 each Ondansetron HCl (Zofran Injection) 4 mg IVPUSH Q6H PRN PRN Reason: NAUSEA AND/OR VOMITING Pantoprazole Sodium (Protonix -) 40 mg PO DAILY [facility]CLUDE 234 BEDS AT [facility] Last Admin: 12/10/19 10:09 Dose: 40 mg Polyethylene Glycol (Miralax (For Daily Use) -) 17 gm PO BID [facility]CLUDE 234 BEDS AT [facility] Last Admin: 12/10/19 10:15 Dose: 17 gm Rosuvastatin Calcium (Crestor -) 20 mg PO HS [facility]S INCLUDE 234 BEDS AT [facility] Last Admin: 12/09/19 21:42 Dose: 20 mg Timolol Maleate (Timoptic 0.5%) 1 drop OU BID [facility]CLUDE 234 BEDS AT [facility] Last Admin: 12/10/19 10:15 Dose: 1 drop Zolpidem Tartrate (Ambien -) 10 mg PO HS PRN PRN Reason: INSOMNIA Last Admin: 12/09/19 21:41 Dose: 10 mg - Objective Vital Signs: Vital Signs Temperature 97.8 F 12/10/19 09:00 Pulse Rate 87 12/10/19 09:00 Respiratory Rate 12/10/19 09:00 Blood Pressure 145/88 12/10/19 09:00 O2 Sat by Pulse Oximetry (%) 94 L 12/10/19 09:00 Constitutional: Yes: Calm Eyes: Yes: Conjunctiva Clear HENT: Yes: Atraumatic Neck: Yes: Supple Cardiovascular: Yes: S1, S2 Respiratory: Yes: CTA Bilaterally Gastrointestinal: Yes: Soft Genitourinary: Yes: WNL Musculoskeletal: Yes: WNL Edema: No Neurological: Yes: Oriented Psychiatric: Yes: Oriented Labs: CBC, BMP 12/10/19 07:00 12/10/19 07:00 INR, PTT INR 1.01 (0.83-1.09) 12/06/19 07:36 Assessment/Plan Current Medications Generic Name Dose Route Start Last Admin Trade Name Freq PRN Reason Stop Dose Admin Acetaminophen 1,000 mg 12/06/19 15:57 12/07/19 04:43 Ofirmev Injection - IVPB 1,000 mg Q6H PRN Administration MODERATE PAIN Acetaminophen 650 mg 12/06/19 16:01 Tylenol - PO Q4H PRN Pain-PACU ORDER X 2 DOSES ONLY Brimonidine Tartrate 1 drop 12/06/19 22:00 12/10/19 10:14 Alphagan 0.2% - OU 1 drop BID [facility] Administration Carvedilol 3.125 mg 12/06/19 22:00 12/10/19 10:09 Coreg - PO 3.125 mg BID [facility] Administration Citalopram Hydrobromide 40 mg 12/07/19 10:00 12/10/19 10:09 Celexa - PO 40 mg DAILY [facility] Administration Clopidogrel Bisulfate 75 mg 12/10/19 10:00 12/10/19 10:09 Plavix - PO 75 mg DAILY [facility] Administration Doxepin HCl 100 mg 12/10/19 22:00 Sinequan - PO HS [facility] Heparin Sodium (Porcine) 5,000 unit 12/06/19 22:00 12/10/19 10:09 Heparin - SQ 5,000 unit BID [facility] Administration Insulin Aspart 1 vial 12/06/19 16:30 12/10/19 12:31 Novolog Vial Sliding Scale - SQ 6 units ACHS [facility] Administration Protocol Insulin Detemir 35 units 12/08/19 08:45 12/10/19 06:38 Levemir Vial SQ 35 units AM [facility] Administration Latanoprost 1 drop 12/06/19 22:00 12/09/19 21:37 Xalatan 0.005% Eye Drops - OU 1 drop HS [facility] Administration Levothyroxine Sodium 50 mcg 12/07/19 07:00 12/10/19 06:38 Synthroid - PO 50 mcg AM [facility] Administration Melatonin 5 mg 12/07/19 03:40 12/07/19 03:47 Melatonin PO 5 mg HS PRN Administration INSOMNIA Miscellaneous 1 each 12/07/19 22:00 12/09/19 21:50 Lidoderm Patch Removal MC Not Given DAILY@2200 COUNTS INCLUDE 234 BEDS AT [facility] Non-Formulary Medication 1 each 12/07/19 08:00 12/10/19 08:31 Emtricitab/Rilpiviri/Tenof Ala [Odefsey Tablet] PO 1 each DAILY@0800 [facility] Administration Ondansetron HCl 4 mg 12/06/19 16:01 Zofran Injection IVPUSH Q6H PRN NAUSEA AND/OR VOMITING Pantoprazole Sodium 40 mg 12/07/19 10:00 12/10/19 10:09 Protonix - PO 40 mg DAILY [facility] Administration Polyethylene Glycol 17 gm 12/06/19 22:00 12/10/19 10:15 Miralax (For Daily Use) - PO 17 gm BID [facility] Administration Rosuvastatin Calcium 20 mg 12/06/19 22:00 12/09/19 21:42 Crestor - PO 20 mg HS [facility] Administration Timolol Maleate 1 drop 12/06/19 22:00 12/10/19 10:15 Timoptic 0.5% OU 1 drop BID [facility] Administration Zolpidem Tartrate 10 mg 12/06/19 15:57 12/09/19 21:41 Ambien - PO 10 mg HS PRN Administration INSOMNIA Impression 1. ERIKA 2. hx urinary retention 3. hld 4. HIV 5. cad 6. constipation 7. s/p right humerus repair Plan - check bladder scan again - place santana if elevated pvr - if no urine start saline - repeat labs in am - pt was on lasix and fluids yesterday, held both overnight
[2019-12-10] MEDS ORDERED: SODIUM CHLORIDE 1,000 ML IV SCH (13:45)
--- NOTE | 2019-12-10 13:50 | PN ---
Physical Exam: SUBJECTIVE: Patient seen and examined. Offers no new complaints. no events overnight. OBJECTIVE: Vital Signs Period Temp Pulse Resp BP Sys/Isbell Pulse Ox Last 24 Hr 97.7 F-98.6 F 84-87 20-20 114-145/70-88 94-96 GENERAL: a/o x 3, in nad HEAD: Normal with no signs of trauma. EYES:extraocular movements intact, sclera anicteric EARS, NOSE, THROAT: Moist mucous membranes. NECK: supple without lymphadenopathy, JVD LUNGS: Lungs CTA b/l HEART: RRR ABDOMEN: obese, +BS, nt, nd MUSCULOSKELETAL: restricted ROM from pain LOWER EXTREMITIES: 2+ pulses, No peripheral edema. Laboratory Results - last 24 hr 12/09/19 12/09/19 12/10/19 17:19 21:35 05:47 WBC RBC Hgb Hct MCV MCH MCHC RDW Plt Count MPV Absolute Neuts (auto) Neutrophils % Lymphocytes % Monocytes % Eosinophils % Basophils % Nucleated RBC % Sodium Potassium Chloride Carbon Dioxide Anion Gap BUN Creatinine Est GFR (CKD-EPI)AfAm Est GFR (CKD-EPI)NonAf POC Glucometer 284 231 178 Random Glucose Calcium Total Bilirubin AST ALT Alkaline Phosphatase Total Protein Albumin 12/10/19 12/10/19 12/10/19 07:00 07:00 11:52 WBC 14.6 H RBC 3.74 Hgb 11.2 Hct 33.5 MCV 89.6 MCH 29.9 MCHC 33.3 RDW 13.3 Plt Count 301 MPV 8.2 Absolute Neuts (auto) 6.5 Neutrophils % 44.4 Lymphocytes % 47.8 H Monocytes % 5.5 Eosinophils % 1.4 Basophils % 0.9 Nucleated RBC % 0 Sodium 135 L Potassium 4.3 Chloride 102 Carbon Dioxide 29 Anion Gap 4 L BUN 34.5 H Creatinine 1.9 H Est GFR (CKD-EPI)AfAm 31.73 Est GFR (CKD-EPI)NonAf 27.38 POC Glucometer 290 Random Glucose 202 H Calcium 9.2 Total Bilirubin 0.6 AST 16 ALT 8 L Alkaline Phosphatase 104 Total Protein 6.6 Albumin 2.3 L Active Medications Generic Name Dose Route Start Last Admin Trade Name Freq PRN Reason Stop Dose Admin Acetaminophen 1,000 mg 12/06/19 15:57 12/07/19 04:43 Ofirmev Injection - IVPB 1,000 mg Q6H PRN Administration MODERATE PAIN Acetaminophen 650 mg 12/06/19 16:01 Tylenol - PO Q4H PRN Pain-PACU ORDER X 2 DOSES ONLY Brimonidine Tartrate 1 drop 12/06/19 22:00 12/10/19 10:14 Alphagan 0.2% - OU 1 drop BID [facility] Administration Carvedilol 3.125 mg 12/06/19 22:00 12/10/19 10:09 Coreg - PO 3.125 mg BID [facility] Administration Citalopram Hydrobromide 40 mg 12/07/19 10:00 12/10/19 10:09 Celexa - PO 40 mg DAILY [facility] Administration Clopidogrel Bisulfate 75 mg 12/10/19 10:00 12/10/19 10:09 Plavix - PO 75 mg DAILY [facility] Administration Doxepin HCl 100 mg 12/10/19 22:00 Sinequan - PO HS [facility] Heparin Sodium (Porcine) 5,000 unit 12/06/19 22:00 12/10/19 10:09 Heparin - SQ 5,000 unit BID [facility] Administration Sodium Chloride 1,000 mls @ 42 mls/hr 12/10/19 13:45 Normal Saline - IV ASDIR [facility] Insulin Aspart 1 vial 12/06/19 16:30 12/10/19 12:31 Novolog Vial Sliding Scale - SQ 6 units ACHS [facility] Administration Protocol Insulin Detemir 35 units 12/08/19 08:45 12/10/19 06:38 Levemir Vial SQ 35 units AM [facility] Administration Latanoprost 1 drop 12/06/19 22:00 12/09/19 21:37 Xalatan 0.005% Eye Drops - OU 1 drop HS [facility] Administration Levothyroxine Sodium 50 mcg 12/07/19 07:00 12/10/19 06:38 Synthroid - PO 50 mcg AM [facility] Administration Melatonin 5 mg 12/07/19 03:40 12/07/19 03:47 Melatonin PO 5 mg HS PRN Administration INSOMNIA Miscellaneous 1 each 12/07/19 22:00 12/09/19 21:50 Lidoderm Patch Removal MC Not Given DAILY@2200 [facility] Non-Formulary Medication 1 each 12/07/19 08:00 12/10/19 08:31 Emtricitab/Rilpiviri/Tenof Ala [Odefsey Tablet] PO 1 each DAILY@0800 [facility] Administration Ondansetron HCl 4 mg 12/06/19 16:01 Zofran Injection IVPUSH Q6H PRN NAUSEA AND/OR VOMITING Pantoprazole Sodium 40 mg 12/07/19 10:00 12/10/19 10:09 Protonix - PO 40 mg DAILY [facility] Administration Polyethylene Glycol 17 gm 12/06/19 22:00 12/10/19 10:15 Miralax (For Daily Use) - PO 17 gm BID [facility] Administration Rosuvastatin Calcium 20 mg 12/06/19 22:00 12/09/19 21:42 Crestor - PO 20 mg HS [facility] Administration Timolol Maleate 1 drop 12/06/19 22:00 12/10/19 10:15 Timoptic 0.5% OU 1 drop BID [facility] Administration Zolpidem Tartrate 10 mg 12/06/19 15:57 12/09/19 21:41 Ambien - PO 10 mg HS PRN Administration INSOMNIA ASSESSMENT/PLAN: # R Proximal displaced Humeral fracture from a fall mechanical fall - POD#4 s/p right humerus IM clayton -ortho on board -plavix restarted -pain control -PT consult -fu in 7-10 days with ortho #Leukocytosis -likely reactive. downtrending -FU am labs #ERKIA on CKD -cr at 1.9 with no change. -renal consult noted and appreciated -renal/bladder US noted -IV fluids held yesterday because she was on lasix too.. lasix held. restart normal saline at 53ml/hour -echo noted. EF 40-45% -bladder scan done post void 320ml -will repeat bladder scan later -encourage frequent urinations. #DM -SSI -hold home meds #HIV -cont. Home meds #HTN -cont. coreg, hctz #CHF -dc lasix. patient on hctz. -FU echo #Hypothyroidosm -cont. Levothyroxin #HLD/CAD -cont. Crestor 20mg -Restart plavix when ok with ortho #DVT ppx hep sq BID #FEN -IV fluids NS @ 53ml/hour -diabetic diet -monitor lytes dispo: likely discharge tomorrow with home VNS Visit type - Emergency Visit Emergency Visit: Yes ED Registration Date: 12/03/19 Care time: The patient presented to the Emergency Department on the above date and was hospitalized for further evaluation of their emergent condition. - New Patient This patient is new to me today: Yes Date on this admission: 12/10/19 - Critical Care Critical Care patient: No - Discharge Referral Referred to [facility] Med [facility] No ATTENDING PHYSICIAN STATEMENT I saw and evaluated the patient. I reviewed the resident's note and discussed the case with the resident. I agree with the resident's findings and plan as documented. SUBJECTIVE: OBJECTIVE: ASSESSMENT AND PLAN:
[2019-12-10] MEDS ORDERED: ACETAMINOPHEN 500 MG TABLET (FP) PO PRN (16:45)
[2019-12-10] MEDS: LATANOPROST 0.005% OPHTH SOLN 2.5ML BOTTLE OU SCH (22:42)
[2019-12-10] MEDS: MELATONIN 5 MG TABLETS PO PRN (22:57)
[2019-12-10] MEDS: ROSUVASTATIN CA 20 MG TABLET (FP) PO SCH (22:58)
[2019-12-10] MEDS: DOXEPIN HCL 25 MG CAPSULE PO SCH (22:58)
[2019-12-10] MEDS ORDERED: DOCUSATE SODIUM 100 MG CAPSULE (FP) PO SCH (23:10)
[2019-12-10] MEDS ORDERED: SENNOSIDES 8.6MG TABLET (FP) PO SCH (23:10)
[2019-12-11] MEDS: LEVOTHYROXINE NA 50 MCG TABLET (FP) PO SCH (06:47)
[2019-12-11] MEDS: INSULIN (LEVEMIR) 100 UNITS/ML UNITS SQ SCH (06:47)
[2019-12-11] MEDS: INSULIN SLIDING SCALE (NOVOLOG) 1 VIAL SQ SCH ×3 (06:47→18:04)
[2019-12-11 08:21] LABS: BASO % 0.4 % (0-2.0); HEMATOCRIT 33.4 % (32.4-45.2); HEMOGLOBIN 11.1 GM/dL (10.7-15.3); LYMPH % 43.4 % (8-40); MCH 29.7 pg (25.7-33.7); MCHC 33.2 g/dl (32.0-36.0); MEAN CELL VOLUME 89.5 fl (80-96); MEAN PLT VOLUME 8.4 fl (7.5-11.1); NEUT % 47.2 % (42.8-82.8); PLATELET COUNT 306 K/MM3 (134-434); RBC 3.74 M/mm3 (3.60-5.2); RDW 13.5 % (11.6-15.6); WHITE BLOOD COUNT 12.2 K/mm3 (4.0-10.0)
[2019-12-11 08:39] LABS: ALBUMIN 2.4 g/dl (3.4-5.0); BILIRUBIN,TOTAL 0.5 mg/dL (0.2-1); BLOOD UREA NITROGEN 39.8 mg/dL (7-18); CALCIUM 9.1 mg/dL (8.5-10.1); CREATININE 2.1 mg/dL (0.55-1.3); POTASSIUM 4.2 mmol/L (3.5-5.1); TOT PROT 6.4 g/dl (6.4-8.2)
[2019-12-11] MEDS: CITALOPRAM HYDROBROMIDE 20 MG TABLET PO SCH (09:00)
--- NOTE | 2019-12-11 09:20 | PN ---
Progress Note (short form) - Note Progress Note: Pt seen and examined. She is on POD #5 s/p right proximal humerus fracture ORIF with an intra medullary clayton. Doing well, less pain, no real complaints, in sling. PE Right arm is NVI Good/full painless ROM at the right elbow, forearm, wrist, fingers, thumb Right shoulder dressing is CDI, no drainage Imp Doing very well. She understands her restrictions Rec Can DC from an orthopedic pov F/U with Dr Torres in 7-10 days
[2019-12-11] MEDS: HEPARIN NA (PORCINE) 5,000 UNITS/ML 1ML VIAL SQ SCH ×2 (09:33→21:09)
[2019-12-11] MEDS: PANTOPRAZOLE 40 MG TABLET PO SCH (09:33)
[2019-12-11] MEDS: CARVEDILOL 3.125 MG TABLET (FP) PO SCH (09:33)
[2019-12-11] MEDS: CLOPIDOGREL BISULFATE 75 MG TABLET (FP) PO SCH (09:34)
--- NOTE | 2019-12-11 10:29 | PN ---
Physical Exam: SUBJECTIVE: Patient seen and examined. No events overnight. no new complaints from patient. OBJECTIVE: Vital Signs Period Temp Pulse Resp BP Sys/Isbell Pulse Ox Last 24 Hr 97.8 F-98.9 F 79-96 20-20 103-140/66-85 98 GENERAL: a/o x 3, in nad HEAD: Normal with no signs of trauma. EYES:extraocular movements intact, sclera anicteric EARS, NOSE, THROAT: Moist mucous membranes. NECK: supple without lymphadenopathy, JVD LUNGS: Lungs CTA b/l HEART: RRR ABDOMEN: obese, +BS, nt, nd MUSCULOSKELETAL: restricted ROM from pain LOWER EXTREMITIES: 2+ pulses, No peripheral edema. Laboratory Results - last 24 hr 12/11/19 12/11/19 12/11/19 06:43 07:10 07:10 WBC 12.2 H RBC 3.74 Hgb 11.1 Hct 33.4 MCV 89.5 MCH 29.7 MCHC 33.2 RDW 13.5 Plt Count 306 MPV 8.4 Absolute Neuts (auto) 5.8 Neutrophils % 47.2 Lymphocytes % 43.4 H Monocytes % 6.0 Eosinophils % 3.0 D Basophils % 0.4 Nucleated RBC % 0 Sodium 136 Potassium 4.2 Chloride 103 Carbon Dioxide 26 Anion Gap 7 L BUN 39.8 H Creatinine 2.1 H Est GFR (CKD-EPI)AfAm 28.12 Est GFR (CKD-EPI)NonAf 24.26 POC Glucometer 242 Random Glucose 266 H Calcium 9.1 Total Bilirubin 0.5 AST 12 L ALT 9 L Alkaline Phosphatase 105 Total Protein 6.4 Albumin 2.4 L Active Medications Generic Name Dose Route Start Last Admin Trade Name Freq PRN Reason Stop Dose Admin Acetaminophen 1,000 mg 12/10/19 16:45 Tylenol - PO Q6H PRN MODERATE PAIN Brimonidine Tartrate 1 drop 12/06/19 22:00 12/10/19 22:42 Alphagan 0.2% - OU 1 drop BID [facility] Administration Carvedilol 3.125 mg 12/06/19 22:00 12/11/19 09:33 Coreg - PO 3.125 mg BID [facility] Administration Citalopram Hydrobromide 40 mg 12/07/19 10:00 12/11/19 09:00 Celexa - PO 40 mg DAILY [facility] Administration Clopidogrel Bisulfate 75 mg 12/10/19 10:00 12/11/19 09:34 Plavix - PO 75 mg DAILY [facility] Administration Docusate Sodium 300 mg 12/10/19 23:10 Colace - PO HS [facility] Doxepin HCl 100 mg 12/10/19 22:00 12/10/19 22:58 Sinequan - PO 100 mg HS [facility] Administration Heparin Sodium (Porcine) 5,000 unit 12/06/19 22:00 12/11/19 09:33 Heparin - SQ 5,000 unit BID [facility] Administration Sodium Chloride 1,000 mls @ 42 mls/hr 12/11/19 10:30 Normal Saline - IV ASDIR [facility] Insulin Aspart 1 vial 12/06/19 16:30 12/11/19 06:47 Novolog Vial Sliding Scale - SQ 4 units ACHS [facility] Administration Protocol Insulin Detemir 35 units 12/08/19 08:45 12/11/19 06:47 Levemir Vial SQ 35 units AM [facility] Administration Latanoprost 1 drop 12/06/19 22:00 12/10/19 22:42 Xalatan 0.005% Eye Drops - OU 1 drop HS [facility] Administration Levothyroxine Sodium 50 mcg 12/07/19 07:00 12/11/19 06:47 Synthroid - PO 50 mcg AM [facility] Administration Melatonin 5 mg 12/07/19 03:40 12/10/19 22:57 Melatonin PO 5 mg HS PRN Administration INSOMNIA Non-Formulary Medication 1 each 12/07/19 08:00 12/11/19 08:17 Emtricitab/Rilpiviri/Tenof Ala [Odefsey Tablet] PO 1 each DAILY@0800 [facility] Administration Ondansetron HCl 4 mg 12/06/19 16:01 12/11/19 09:58 Zofran Injection IVPUSH 4 mg Q6H PRN Administration NAUSEA AND/OR VOMITING Oxycodone HCl 5 mg 12/10/19 22:31 12/10/19 22:59 Roxicodone - PO 5 mg Q4H PRN Administration PAIN LEVEL 6-10 Pantoprazole Sodium 40 mg 12/07/19 10:00 12/11/19 09:33 Protonix - PO 40 mg DAILY [facility] Administration Polyethylene Glycol 17 gm 12/06/19 22:00 12/10/19 22:58 Miralax (For Daily Use) - PO 17 gm BID [facility] Administration Rosuvastatin Calcium 20 mg 12/06/19 22:00 12/10/19 22:58 Crestor - PO 20 mg HS [facility] Administration Senna 1 tab 12/10/19 23:10 Senna - PO HS [facility] Timolol Maleate 1 drop 12/06/19 22:00 12/10/19 22:43 Timoptic 0.5% OU 1 drop BID [facility] Administration ASSESSMENT/PLAN: # R Proximal displaced Humeral fracture from a fall mechanical fall - POD#5 s/p right humerus IM clayton -ortho on board -plavix restarted -pain control -PT consult -fu in 7-10 days with ortho #Leukocytosis -likely reactive. downtrending -FU am labs #ERIKA on CKD -worsening cr at 2.1 now -renal consult noted and appreciated -renal/bladder US noted -IV fluids held yesterday because she was on lasix too.. lasix held. restart normal saline at 45mll/hour -echo noted. EF 40-45% #DM -SSI -hold home meds #HIV -cont. Home meds #HTN -cont. coreg, hctz #CHF -dc lasix. patient on hctz. -FU echo #Hypothyroidosm -cont. Levothyroxin #HLD/CAD -cont. Crestor 20mg -Restart plavix when ok with ortho #DVT ppx hep sq BID #FEN -IV fluids NS @ 45ml/hour -diabetic diet -monitor lytes dispo: likely discharge tomorrow with home VNS Visit type - Emergency Visit Emergency Visit: Yes ED Registration Date: 12/03/19 Care time: The patient presented to the Emergency Department on the above date and was hospitalized for further evaluation of their emergent condition. - New Patient This patient is new to me today: Yes Date on this admission: 12/11/19 - Critical Care Critical Care patient: No ATTENDING PHYSICIAN STATEMENT I saw and evaluated the patient. I reviewed the resident's note and discussed the case with the resident. I agree with the resident's findings and plan as documented. SUBJECTIVE: OBJECTIVE: ASSESSMENT AND PLAN:
[2019-12-11] MEDS ORDERED: SODIUM CHLORIDE 1,000 ML IV SCH (10:30)
--- NOTE | 2019-12-11 11:20 | PN ---
Progress Note, Physician History of Present Illness: Pt seen and examined at bedside. She is awake and alert. She has no complaints. - Current Medication List Current Medications: Active Medications Acetaminophen (Tylenol -) 1,000 mg PO Q6H PRN PRN Reason: MODERATE PAIN Brimonidine Tartrate (Alphagan 0.2% -) 1 drop OU BID [facility] Last Admin: 12/10/19 22:42 Dose: 1 drop Carvedilol (Coreg -) 3.125 mg PO BID [facility] Last Admin: 12/11/19 09:33 Dose: 3.125 mg Citalopram Hydrobromide (Celexa -) 40 mg PO DAILY [facility] Last Admin: 12/11/19 09:00 Dose: 40 mg Clopidogrel Bisulfate (Plavix -) 75 mg PO DAILY [facility] Last Admin: 12/11/19 09:34 Dose: 75 mg Docusate Sodium (Colace -) 300 mg PO HS [facility] Doxepin HCl (Sinequan -) 100 mg PO HS [facility] Last Admin: 12/10/19 22:58 Dose: 100 mg Heparin Sodium (Porcine) (Heparin -) 5,000 unit SQ BID [facility] Last Admin: 12/11/19 09:33 Dose: 5,000 unit Sodium Chloride (Normal Saline -) 1,000 mls @ 42 mls/hr IV ASDIR [facility] Insulin Aspart (Novolog Vial Sliding Scale -) 1 vial SQ ACHS [facility]; Protocol Last Admin: 12/11/19 06:47 Dose: 4 units Insulin Detemir (Levemir Vial) 35 units SQ AM [facility] Last Admin: 12/11/19 06:47 Dose: 35 units Latanoprost (Xalatan 0.005% Eye Drops -) 1 drop OU HS [facility] Last Admin: 12/10/19 22:42 Dose: 1 drop Levothyroxine Sodium (Synthroid -) 50 mcg PO AM [facility] Last Admin: 12/11/19 06:47 Dose: 50 mcg Melatonin (Melatonin) 5 mg PO HS PRN PRN Reason: INSOMNIA Last Admin: 12/10/19 22:57 Dose: 5 mg Non-Formulary Medication (Emtricitab/Rilpiviri/Tenof Ala [Odefsey Tablet]) 1 each PO DAILY@0800 [facility] Last Admin: 12/11/19 08:17 Dose: 1 each Ondansetron HCl (Zofran Injection) 4 mg IVPUSH Q6H PRN PRN Reason: NAUSEA AND/OR VOMITING Last Admin: 12/11/19 09:58 Dose: 4 mg Oxycodone HCl (Roxicodone -) 5 mg PO Q4H PRN PRN Reason: PAIN LEVEL 6-10 Last Admin: 12/10/19 22:59 Dose: 5 mg Pantoprazole Sodium (Protonix -) 40 mg PO DAILY [facility] Last Admin: 12/11/19 09:33 Dose: 40 mg Polyethylene Glycol (Miralax (For Daily Use) -) 17 gm PO BID [facility] Last Admin: 12/10/19 22:58 Dose: 17 gm Rosuvastatin Calcium (Crestor -) 20 mg PO HS [facility] Last Admin: 12/10/19 22:58 Dose: 20 mg Senna (Senna -) 1 tab PO [facility] Timolol Maleate (Timoptic 0.5%) 1 drop OU BID [facility] Last Admin: 12/10/19 22:43 Dose: 1 drop - Objective Vital Signs: Vital Signs Temperature 98 F 12/11/19 10:00 Pulse Rate 80 12/11/19 10:00 Respiratory Rate 12/11/19 10:00 Blood Pressure 121/69 12/11/19 10:00 O2 Sat by Pulse Oximetry (%) 93 L 12/11/19 09:00 Constitutional: Yes: Calm Eyes: Yes: Conjunctiva Clear HENT: Yes: Atraumatic Cardiovascular: Yes: S1, S2 Respiratory: Yes: CTA Bilaterally Gastrointestinal: Yes: Normal Bowel Sounds, Soft Genitourinary: Yes: WNL Musculoskeletal: Yes: WNL Edema: LLE: Trace, RLE: Trace Neurological: Yes: Oriented Psychiatric: Yes: Oriented Labs: CBC, BMP 12/11/19 07:10 12/11/19 07:10 INR, PTT INR 1.01 (0.83-1.09) 12/06/19 07:36 Assessment/Plan Current Medications Generic Name Dose Route Start Last Admin Trade Name Freq PRN Reason Stop Dose Admin Acetaminophen 1,000 mg 12/10/19 16:45 Tylenol - PO Q6H PRN MODERATE PAIN Brimonidine Tartrate 1 drop 12/06/19 22:00 12/10/19 22:42 Alphagan 0.2% - OU 1 drop BID [facility] Administration Carvedilol 3.125 mg 12/06/19 22:00 12/11/19 09:33 Coreg - PO 3.125 mg BID [facility] Administration Citalopram Hydrobromide 40 mg 12/07/19 10:00 12/11/19 09:00 Celexa - PO 40 mg DAILY [facility] Administration Clopidogrel Bisulfate 75 mg 12/10/19 10:00 12/11/19 09:34 Plavix - PO 75 mg DAILY [facility] Administration Docusate Sodium 300 mg 12/10/19 23:10 Colace - PO HS [facility] Doxepin HCl 100 mg 12/10/19 22:00 12/10/19 22:58 Sinequan - PO 100 mg HS [facility] Administration Heparin Sodium (Porcine) 5,000 unit 12/06/19 22:00 12/11/19 09:33 Heparin - SQ 5,000 unit BID [facility] Administration Sodium Chloride 1,000 mls @ 42 mls/hr 12/11/19 10:30 Normal Saline - IV ASDIR [facility] Insulin Aspart 1 vial 12/06/19 16:30 12/11/19 06:47 Novolog Vial Sliding Scale - SQ 4 units ACHS [facility] Administration Protocol Insulin Detemir 35 units 12/08/19 08:45 12/11/19 06:47 Levemir Vial SQ 35 units AM [facility] Administration Latanoprost 1 drop 12/06/19 22:00 12/10/19 22:42 Xalatan 0.005% Eye Drops - OU 1 drop HS [facility] Administration Levothyroxine Sodium 50 mcg 12/07/19 07:00 12/11/19 06:47 Synthroid - PO 50 mcg AM [facility] Administration Melatonin 5 mg 12/07/19 03:40 12/10/19 22:57 Melatonin PO 5 mg HS PRN Administration INSOMNIA Non-Formulary Medication 1 each 12/07/19 08:00 12/11/19 08:17 Emtricitab/Rilpiviri/Tenof Ala [Odefsey Tablet] PO 1 each DAILY@0800 [facility] Administration Ondansetron HCl 4 mg 12/06/19 16:01 12/11/19 09:58 Zofran Injection IVPUSH 4 mg Q6H PRN Administration NAUSEA AND/OR VOMITING Oxycodone HCl 5 mg 12/10/19 22:31 12/10/19 22:59 Roxicodone - PO 5 mg Q4H PRN Administration PAIN LEVEL 6-10 Pantoprazole Sodium 40 mg 12/07/19 10:00 12/11/19 09:33 Protonix - PO 40 mg DAILY [facility] Administration Polyethylene Glycol 17 gm 12/06/19 22:00 12/10/19 22:58 Miralax (For Daily Use) - PO 17 gm BID [facility] Administration Rosuvastatin Calcium 20 mg 12/06/19 22:00 12/10/19 22:58 Crestor - PO 20 mg HS [facility] Administration Senna 1 tab 12/10/19 23:10 Senna - PO HS [facility] Timolol Maleate 1 drop 12/06/19 22:00 12/10/19 22:43 Timoptic 0.5% OU 1 drop BID [facility] Administration Impression 1. ERIKA 2. hx urinary retention 3. hld 4. HIV 5. cad 6. constipation 7. s/p right humerus repair Plan - will need outpt follow up for CKD - should also see urology for elevated pvr - should be on a bathroom schedule as she does not get up to urinate - can stop fluids - home lasix dose held for now - monitor bmp while here, will need labs monitored in rehab
[2019-12-11] MEDS: POLYETHYLENE GLYCOL 3350 119 GM BTL PO SCH (11:32)
[2019-12-11] MEDS: BRIMONIDINE TARTRATE 0.2% OPHTHALMIC 5 ML BOTTLE OU SCH (11:32)
[2019-12-11] MEDS: TIMOLOL 0.5% OPHTHALMIC SOL 5 ML BOTTLE OU SCH (11:32)
--- NOTE | 2019-12-11 12:33 | PN ---
Teaching Attending Note Name of Resident: Deep Reyes ATTENDING PHYSICIAN STATEMENT I saw and evaluated the patient. I reviewed the resident's note and discussed the case with the resident. I agree with the resident's findings and plan as documented. SUBJECTIVE: No new complaints OBJECTIVE: Vital Signs Temperature 98 F 12/11/19 10:00 Pulse Rate 80 12/11/19 10:00 Respiratory Rate 20 12/11/19 10:00 Blood Pressure 121/69 12/11/19 10:00 O2 Sat by Pulse Oximetry (%) 93 L 12/11/19 09:00 General: Elderly woman, comfortable, not in distress HEENT; mucous membranes moist, no anemia, no jaundice, PERRLA, no nystagmus Neck: No JVD, supple, no bruit, thyroid palpably normal, normal carotid pulsations. Chest: Nontender, minimal basal rales. CVS: S1-S2 regular no murmur/gallop/rub Abdomen: Nondistended, soft, bowel sounds present. Extremities: Right upper extremity status post IM nail postoperative day thyroid no edema., No cough tenderness, pulses present FEATHER WASHER: AO X3 , no gross motor sensory deficit CBC, BMP 12/11/19 07:10 12/11/19 07:10 Active Medications Acetaminophen (Tylenol -) 1,000 mg PO Q6H PRN PRN Reason: MODERATE PAIN Brimonidine Tartrate (Alphagan 0.2% -) 1 drop OU BID [facility] Last Admin: 12/11/19 11:32 Dose: 1 drop Carvedilol (Coreg -) 3.125 mg PO BID [facility] Last Admin: 12/11/19 09:33 Dose: 3.125 mg Citalopram Hydrobromide (Celexa -) 40 mg PO DAILY [facility] Last Admin: 12/11/19 09:00 Dose: 40 mg Clopidogrel Bisulfate (Plavix -) 75 mg PO DAILY [facility] Last Admin: 12/11/19 09:34 Dose: 75 mg Docusate Sodium (Colace -) 300 mg PO HS [facility] Doxepin HCl (Sinequan -) 100 mg PO HS [facility] Last Admin: 12/10/19 22:58 Dose: 100 mg Heparin Sodium (Porcine) (Heparin -) 5,000 unit SQ BID [facility] Last Admin: 12/11/19 09:33 Dose: 5,000 unit Sodium Chloride (Normal Saline -) 1,000 mls @ 42 mls/hr IV ASDIR [facility] Last Admin: 12/11/19 11:32 Dose: 42 mls/hr Insulin Aspart (Novolog Vial Sliding Scale -) 1 vial SQ ACHS [facility]; Protocol Last Admin: 12/11/19 11:16 Dose: 6 units Insulin Detemir (Levemir Vial) 35 units SQ AM [facility] Last Admin: 12/11/19 06:47 Dose: 35 units Latanoprost (Xalatan 0.005% Eye Drops -) 1 drop OU HS [facility] Last Admin: 12/10/19 22:42 Dose: 1 drop Levothyroxine Sodium (Synthroid -) 50 mcg PO AM [facility] Last Admin: 12/11/19 06:47 Dose: 50 mcg Melatonin (Melatonin) 5 mg PO HS PRN PRN Reason: INSOMNIA Last Admin: 12/10/19 22:57 Dose: 5 mg Non-Formulary Medication (Emtricitab/Rilpiviri/Tenof Ala [Odefsey Tablet]) 1 each PO DAILY@0800 [facility] Last Admin: 12/11/19 08:17 Dose: 1 each Ondansetron HCl (Zofran Injection) 4 mg IVPUSH Q6H PRN PRN Reason: NAUSEA AND/OR VOMITING Last Admin: 12/11/19 09:58 Dose: 4 mg Oxycodone HCl (Roxicodone -) 5 mg PO Q4H PRN PRN Reason: PAIN LEVEL 6-10 Last Admin: 12/10/19 22:59 Dose: 5 mg Pantoprazole Sodium (Protonix -) 40 mg PO DAILY [facility] Last Admin: 12/11/19 09:33 Dose: 40 mg Polyethylene Glycol (Miralax (For Daily Use) -) 17 gm PO BID [facility] Last Admin: 12/11/19 11:32 Dose: 17 gm Rosuvastatin Calcium (Crestor -) 20 mg PO HS [facility] Last Admin: 12/10/19 22:58 Dose: 20 mg Senna (Senna -) [address] [facility] Timolol Maleate (Timoptic 0.5%) 1 drop OU BID [facility] Last Admin: 12/11/19 11:32 Dose: 1 drop ASSESSMENT AND PLAN:64 yo F with a PMHx of DM, HIV, HTN, HLD, CAD s/p CABG 2016 , presenting with a mechanical fall found to have right proximal displaced humeral fracture s/p right humerus IM clayton. Patient developed ERIKA on CKD creatinine 0 point ASSESSMENT AND PLAN: We will DC telemetry monitoring, observe overnight with IV hydration follow-up BMP in the morning Problem List - Problems (1) Right supracondylar humerus fracture Assessment/Plan: Status post IM nail, continue pain management, orthopedics cleared to DC. 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 Code(s): E11.29 - TYPE 2 DIABETES MELLITUS W OTH DIABETIC KIDNEY COMPLICATION (4) HIV (human immunodeficiency virus infection) Assessment/Plan: No acute issue continue all home medication Code(s): Z21 - ASYMPTOMATIC HUMAN IMMUNODEFICIENCY VIRUS INFECTION STATUS (5) HLD (hyperlipidemia) Assessment/Plan: Continue statin Code(s): E78.5 - HYPERLIPIDEMIA, UNSPECIFIED (6) Hypothyroid Assessment/Plan: Continue levothyroxine Code(s): E03.9 - HYPOTHYROIDISM, UNSPECIFIED (7) CAD (coronary artery disease) Assessment/Plan: Status post stent hemodynamically stable denies any chest pain continue statin, beta-blockers, Plavix Code(s): I25.10 - ATHSCL HEART DISEASE OF [place] CORONARY ARTERY W/O ANG PCTRS (8) HTN (hypertension) Assessment/Plan: Well-controlled continue all home medications Code(s): I10 - ESSENTIAL (PRIMARY) HYPERTENSION (9) Systolic heart failure secondary to coronary artery disease Assessment/Plan: Patient has history of CAD, hypertension ejection fraction 45 to 50% most likely compensated heart failure with reduced/borderline ejection fraction needs optimization of CHF therapy, already on beta-felicita, statin and Plavix, patient has CKD stage III currently mild ERIKA, ACEI/ARBS intubated as an outpatient. I Code(s): I50.20 - UNSPECIFIED SYSTOLIC (CONGESTIVE) HEART FAILURE; I25.10 - ATHSCL HEART DISEASE OF [place] CORONARY ARTERY W/O ANG PCTRS (10) Acute kidney injury superimposed on CKD Assessment/Plan: Baseline CKD stage III rising BUN/creatinine, creatinine is 2.1 will continue IV hydration follow-up BMP in the morning Code(s): N17.9 - ACUTE KIDNEY FAILURE, UNSPECIFIED; N18.9 - CHRONIC KIDNEY DISEASE, UNSPECIFIED
[2019-12-11] MEDS: oxyCODONE HCL 5 MG TABLET PO PRN ×2 (13:50→21:09)
[2019-12-11] MEDS ORDERED: PT OWN MED DRAWER 7, Y5N ONE (21:06)
[2019-12-11] MEDS: ROSUVASTATIN CA 20 MG TABLET (FP) PO SCH (21:11)
[2019-12-11] MEDS ORDERED: DOCUSATE SODIUM 100 MG CAPSULE (FP) PO SCH (22:32)
[2019-12-11] MEDS ORDERED: SENNOSIDES 8.6MG TABLET (FP) PO SCH (22:32)
[2019-12-12] MEDS: CARVEDILOL 3.125 MG TABLET (FP) PO SCH ×3 (00:08→21:51)
[2019-12-12] MEDS: POLYETHYLENE GLYCOL 3350 119 GM BTL PO SCH ×4 (00:08→21:50)
[2019-12-12] MEDS: DOXEPIN HCL 25 MG CAPSULE PO SCH (00:09)
[2019-12-12] MEDS: BRIMONIDINE TARTRATE 0.2% OPHTHALMIC 5 ML BOTTLE OU SCH ×3 (00:09→21:51)
[2019-12-12] MEDS: TIMOLOL 0.5% OPHTHALMIC SOL 5 ML BOTTLE OU SCH ×3 (00:09→21:52)
[2019-12-12] MEDS: LATANOPROST 0.005% OPHTH SOLN 2.5ML BOTTLE OU SCH (00:10)
[2019-12-12] MEDS: INSULIN SLIDING SCALE (NOVOLOG) 1 VIAL SQ SCH ×5 (00:13→21:56)
[2019-12-12] MEDS ORDERED: PT OWN MED DRAWER 7, Y5N ONE ×4 (06:28→21:07)
[2019-12-12] MEDS: INSULIN (LEVEMIR) 100 UNITS/ML UNITS SQ SCH (06:35)
[2019-12-12] MEDS: LEVOTHYROXINE NA 50 MCG TABLET (FP) PO SCH (06:35)
[2019-12-12 09:50] LABS: BASO % 0.5 % (0-2.0); EOS % 1.7 % (0-4.5); HEMATOCRIT 32.8 % (32.4-45.2); HEMOGLOBIN 10.9 GM/dL (10.7-15.3); LYMPH % 45.1 % (8-40); MCHC 33.2 g/dl (32.0-36.0); MEAN CELL VOLUME 90.2 fl (80-96); MEAN PLT VOLUME 8.2 fl (7.5-11.1); MONO % 5.5 % (3.8-10.2); NEUT % 47.2 % (42.8-82.8); PLATELET COUNT 304 K/MM3 (134-434); RBC 3.63 M/mm3 (3.60-5.2); RDW 13.2 % (11.6-15.6); WHITE BLOOD COUNT 12.5 K/mm3 (4.0-10.0)
--- NOTE | 2019-12-12 09:58 | PN ---
Teaching Attending Note Name of Resident: Deep Reyes ATTENDING PHYSICIAN STATEMENT I saw and evaluated the patient. I reviewed the resident's note and discussed the case with the resident. I agree with the resident's findings and plan as documented. SUBJECTIVE: OBJECTIVE: Vital Signs Temperature 98.2 F 12/12/19 06:16 Pulse Rate 79 12/12/19 06:16 Respiratory Rate 20 12/12/19 06:16 Blood Pressure 126/56 L 12/12/19 06:16 O2 Sat by Pulse Oximetry (%) 99 12/11/19 21:00 General: Elderly woman, comfortable, not in distress HEENT; mucous membranes moist, no anemia, no jaundice, PERRLA, no nystagmus Neck: No JVD, supple, no bruit, thyroid palpably normal, normal carotid pulsations. Chest: Nontender, minimal basal rales. CVS: S1-S2 regular no murmur/gallop/rub Abdomen: Nondistended, soft, bowel sounds present. Extremities: Right upper extremity status post IM nail postoperative day thyroid no edema., No cough tenderness, pulses present JERKER: AO X3 , no gross motor sensory deficit CBC, BMP 12/12/19 08:10 12/12/19 08:10 SSESSMENT AND PLAN:64 yo F with a PMHx of DM, HIV, HTN, HLD, CAD s/p CABG 2016, presenting with a mechanical fall found to have right proximal displaced humeral fracture s/p right humerus IM clayton. Patient developed ERIKA on CKD , patient c/o constipation with rising BUN creatanine , case discussed with the Manager Paid recommonded mineral oil enema and patient can be discharged home. Plan; F/u renal recommondations. Problem List - Problems (1) Right supracondylar humerus fracture Assessment/Plan: Status post IM nail, continue pain management, orthopedics cleared to DC. 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 Assessment/Plan: Optimize glycemic control Code(s): E11.29 - TYPE 2 DIABETES MELLITUS W OTH DIABETIC KIDNEY COMPLICATION (4) HIV (human immunodeficiency virus infection) Assessment/Plan: No acute issue continue all home medication Code(s): Z21 - ASYMPTOMATIC HUMAN IMMUNODEFICIENCY VIRUS INFECTION STATUS (5) HLD (hyperlipidemia) Assessment/Plan: Continue statin Code(s): E78.5 - HYPERLIPIDEMIA, UNSPECIFIED (6) Hypothyroid Assessment/Plan: Continue levothyroxine Code(s): E03.9 - HYPOTHYROIDISM, UNSPECIFIED (7) CAD (coronary artery disease) Assessment/Plan: Status post stent hemodynamically stable denies any chest pain continue statin, beta-blockers, Plavix Code(s): I25.10 - ATHSCL HEART DISEASE OF [place] CORONARY ARTERY W/O ANG PCTRS (8) HTN (hypertension) Assessment/Plan: Well-controlled continue all home medications Code(s): I10 - ESSENTIAL (PRIMARY) HYPERTENSION (9) Systolic heart failure secondary to coronary artery disease Assessment/Plan: Patient has history of CAD, hypertension ejection fraction 45 to 50% most likely compensated heart failure with reduced/borderline ejection fraction needs optimization of CHF therapy, already on beta-felicita, statin and Plavix, patient has CKD stage III currently mild ERIKA, ACEI/ARBS intubated as an outpatient. I Code(s): I50.20 - UNSPECIFIED SYSTOLIC (CONGESTIVE) HEART FAILURE; I25.10 - ATHSCL HEART DISEASE OF [place] CORONARY ARTERY W/O ANG PCTRS (10) Acute kidney injury superimposed on CKD Assessment/Plan: Baseline CKD stage III rising BUN/creatinine, creatinine is 2.1 will continue IV hydration follow-up BMP in the morning Code(s): N17.9 - ACUTE KIDNEY FAILURE, UNSPECIFIED; N18.9 - CHRONIC KIDNEY DISEASE, UNSPECIFIED
[2019-12-12 10:27] LABS: ALBUMIN 2.3 g/dl (3.4-5.0); BILIRUBIN,TOTAL 0.3 mg/dL (0.2-1); CALCIUM 9.3 mg/dL (8.5-10.1); CREATININE 2.2 mg/dL (0.55-1.3); POTASSIUM 4.1 mmol/L (3.5-5.1); TOT PROT 6.6 g/dl (6.4-8.2)
[2019-12-12] MEDS: CITALOPRAM HYDROBROMIDE 20 MG TABLET PO SCH (10:56)
[2019-12-12] MEDS: HEPARIN NA (PORCINE) 5,000 UNITS/ML 1ML VIAL SQ SCH ×2 (10:57→21:51)
[2019-12-12] MEDS: CLOPIDOGREL BISULFATE 75 MG TABLET (FP) PO SCH (10:58)
[2019-12-12] MEDS: PANTOPRAZOLE 40 MG TABLET PO SCH (10:58)
--- NOTE | 2019-12-12 11:27 | PN ---
Physical Exam: SUBJECTIVE: Patient seen and examined. Offers no new complaints today. No events overnight. OBJECTIVE: Vital Signs Period Temp Pulse Resp BP Sys/Isbell Pulse Ox Last 24 Hr 97.7 F-98.2 F 77-88 20-20 104-141/56-81 99 GENERAL: The patient is awake, alert, and fully oriented, in no acute distress. HEAD: Normal with no signs of trauma. EYES: PERRL, extraocular movements intact, sclera anicteric, conjunctiva clear. No ptosis. ENT: Ears normal, nares patent, oropharynx clear without exudates, moist mucous membranes. NECK: Trachea midline, full range of motion, supple. LUNGS: Breath sounds equal, clear to auscultation bilaterally, no wheezes, no crackles, no accessory muscle use. HEART: Regular rate and rhythm, S1, S2 without murmur, rub or gallop. ABDOMEN: Soft, nontender, nondistended, normoactive bowel sounds, no guarding, no rebound, no hepatosplenomegaly, no masses. EXTREMITIES: 2+ pulses, warm, well-perfused, no edema. NEUROLOGICAL: Cranial nerves II through XII grossly intact. Normal speech, gait not observed. PSYCH: Normal mood, normal affect. SKIN: Warm, dry, normal turgor, no rashes or lesions noted Laboratory Results - last 24 hr 12/11/19 12/12/19 12/12/19 18:00 00:12 06:32 WBC RBC Hgb Hct MCV MCH MCHC RDW Plt Count MPV Absolute Neuts (auto) Neutrophils % Lymphocytes % Monocytes % Eosinophils % Basophils % Nucleated RBC % Sodium Potassium Chloride Carbon Dioxide Anion Gap BUN Creatinine Est GFR (CKD-EPI)AfAm Est GFR (CKD-EPI)NonAf POC Glucometer 303 268 184 Random Glucose Calcium Total Bilirubin AST ALT Alkaline Phosphatase Total Protein Albumin 12/12/19 12/12/19 08:10 08:10 WBC 12.5 H RBC 3.63 Hgb 10.9 Hct 32.8 MCV 90.2 MCH 30.0 MCHC 33.2 RDW 13.2 Plt Count 304 MPV 8.2 Absolute Neuts (auto) 5.9 Neutrophils % 47.2 Lymphocytes % 45.1 H Monocytes % 5.5 Eosinophils % 1.7 Basophils % 0.5 Nucleated RBC % 0 Sodium 138 Potassium 4.1 Chloride 105 Carbon Dioxide 28 Anion Gap 6 L BUN 38.0 H Creatinine 2.2 H Est GFR (CKD-EPI)AfAm 26.58 Est GFR (CKD-EPI)NonAf 22.93 POC Glucometer Random Glucose 180 H Calcium 9.3 Total Bilirubin 0.3 AST 15 ALT 9 L Alkaline Phosphatase 105 Total Protein 6.6 Albumin 2.3 L Active Medications Generic Name Dose Route Start Last Admin Trade Name Freq PRN Reason Stop Dose Admin Acetaminophen 1,000 mg 12/10/19 16:45 Tylenol - PO Q6H PRN MODERATE PAIN Brimonidine Tartrate 1 drop 12/06/19 22:00 12/12/19 00:09 Alphagan 0.2% - OU 1 drop BID [facility] Administration Carvedilol 3.125 mg 12/06/19 22:00 12/12/19 10:57 Coreg - PO 3.125 mg BID [facility] Administration Citalopram Hydrobromide 40 mg 12/07/19 10:00 12/12/19 10:56 Celexa - PO 40 mg DAILY [facility] Administration Clopidogrel Bisulfate 75 mg 12/10/19 10:00 12/12/19 10:58 Plavix - PO 75 mg DAILY [facility] Administration Docusate Sodium 300 mg 12/10/19 23:10 12/11/19 21:10 Colace - PO 300 mg HS [facility] Administration Doxepin HCl 100 mg 12/10/19 22:00 12/12/19 00:09 Sinequan - PO 100 mg HS [facility] Administration Heparin Sodium (Porcine) 5,000 unit 12/06/19 22:00 12/12/19 10:57 Heparin - SQ 5,000 unit BID [facility] Administration Insulin Aspart 1 vial 12/06/19 16:30 12/12/19 06:33 Novolog Vial Sliding Scale - SQ 2 units ACHS [facility] Administration Protocol Insulin Detemir 35 units 12/08/19 08:45 12/12/19 06:35 Levemir Vial SQ 35 units AM [facility] Administration Latanoprost 1 drop 12/06/19 22:00 12/12/19 00:10 Xalatan 0.005% Eye Drops - OU 1 drop HS [facility] Administration Levothyroxine Sodium 50 mcg 12/07/19 07:00 12/12/19 06:35 Synthroid - PO 50 mcg AM [facility] Administration Melatonin 5 mg 12/07/19 03:40 12/10/19 22:57 Melatonin PO 5 mg HS PRN Administration INSOMNIA Non-Formulary Medication 1 each 12/07/19 08:00 12/12/19 11:05 Emtricitab/Rilpiviri/Tenof Ala [Odefsey Tablet] PO 1 each DAILY@0800 [facility] Administration Ondansetron HCl 4 mg 12/06/19 16:01 12/11/19 09:58 Zofran Injection IVPUSH 4 mg Q6H PRN Administration NAUSEA AND/OR VOMITING Oxycodone HCl 5 mg 12/10/19 22:31 12/11/19 21:09 Roxicodone - PO 5 mg Q4H PRN Administration PAIN LEVEL 6-10 Pantoprazole Sodium 40 mg 12/07/19 10:00 12/12/19 10:58 Protonix - PO 40 mg DAILY [facility] Administration Polyethylene Glycol 17 gm 12/06/19 22:00 12/12/19 11:01 Miralax (For Daily Use) - PO 17 gm BID [facility] Administration Rosuvastatin Calcium 20 mg 12/06/19 22:00 12/11/19 21:11 Crestor - PO 20 mg HS [facility] Administration Senna 1 tab 12/10/19 23:10 12/11/19 21:09 Senna - PO 1 tab HS [facility] Administration Timolol Maleate 1 drop 12/06/19 22:00 12/12/19 11:04 Timoptic 0.5% OU 1 drop BID [facility] Administration ASSESSMENT/PLAN: 64 yo F with a PMHx of DM, HIV, HTN, HLD, CAD s/p CABG 2016, presenting with a mechanical fall found to have right proximal displaced humeral fracture s/p right humerus IM clay[place]. Patient developed ERIKA on CKD # R Proximal displaced Humeral fracture from a fall mechanical fall - POD#6 s/p right humerus IM clayton -ortho on board -plavix restarted -pain control -PT consult -will fu in 7-10 days with ortho #Leukocytosis -likely reactive. improved #ERIKA on CKD -Cr 2.3 -will need close nephrology follow up outpatient. patient in agreement. -Recommend BMP every 3 days until seen by PCP or turbine operator. -renal/bladder US noted -echo noted. EF 40-45% #DM -SSI -hold home meds #HIV -cont. Home meds #HTN -cont. coreg, hctz #CHF -dc lasix. patient on hctz. -echo results noted #Hypothyroidosm -cont. Levothyroxin #HLD/CAD -cont. Crestor 20mg -plavix restarted #DVT ppx hep sq BID #FEN -iv fluids stopped -diabetic diet -monitor lytes Visit type - Emergency Visit Emergency Visit: Yes ED Registration Date: 12/03/19 Care time: The patient presented to the Emergency Department on the above date and was hospitalized for further evaluation of their emergent condition. - New Patient This patient is new to me today: Yes Date on this admission: 12/12/19 - Critical Care Critical Care patient: No ATTENDING PHYSICIAN STATEMENT I saw and evaluated the patient. I reviewed the resident's note and discussed the case with the resident. I agree with the resident's findings and plan as documented. SUBJECTIVE: OBJECTIVE: ASSESSMENT AND PLAN:
[2019-12-12] MEDS ORDERED: INSULIN (NOVOLOG) ASPART 100 UNITS/ML 10ML VIAL ONE (11:54)
[2019-12-12] MEDS ORDERED: LACTULOSE 20 GM/30 ML UDC (FOR ORAL USE ONLY) PO ONE (12:17)
[2019-12-12] MEDS ORDERED: MINERAL OIL ENEMA 133 ML ENEMA PR ONE (12:17)
--- NOTE | 2019-12-12 15:47 | PN ---
Progress Note, Physician History of Present Illness: Pt seen and examined at bedside. She complains of constipation and says that she has not had a bowel movement in a week. - Current Medication List Current Medications: Active Medications Acetaminophen (Tylenol -) 1,000 mg PO Q6H PRN PRN Reason: MODERATE PAIN Brimonidine Tartrate (Alphagan 0.2% -) 1 drop OU BID [facility] Last Admin: 12/12/19 11:50 Dose: 1 drop Carvedilol (Coreg -) 3.125 mg PO BID [facility] Last Admin: 12/12/19 10:57 Dose: 3.125 mg Citalopram Hydrobromide (Celexa -) 40 mg PO DAILY [facility] Last Admin: 12/12/19 10:56 Dose: 40 mg Clopidogrel Bisulfate (Plavix -) 75 mg PO DAILY [facility] Last Admin: 12/12/19 10:58 Dose: 75 mg Docusate Sodium (Colace -) 300 mg PO [facility] Last Admin: 12/11/19 21:10 Dose: 300 mg Doxepin HCl (Sinequan -) 100 mg PO [facility] Last Admin: 12/12/19 00:09 Dose: 100 mg Heparin Sodium (Porcine) (Heparin -) 5,000 unit SQ BID [facility] Last Admin: 12/12/19 10:57 Dose: 5,000 unit Insulin Aspart (Novolog Vial Sliding Scale -) 1 vial SQ [facility]; Protocol Last Admin: 12/12/19 11:55 Dose: 6 units Insulin Detemir (Levemir Vial) 35 units SQ AM [facility] Last Admin: 12/12/19 06:35 Dose: 35 units Latanoprost (Xalatan 0.005% Eye Drops -) 1 drop OU [facility] Last Admin: 12/12/19 00:10 Dose: 1 drop Levothyroxine Sodium (Synthroid -) 50 mcg PO AM [facility] Last Admin: 12/12/19 06:35 Dose: 50 mcg Melatonin (Melatonin) 5 mg PO HS PRN PRN Reason: INSOMNIA Last Admin: 12/10/19 22:57 Dose: 5 mg Non-Formulary Medication (Emtricitab/Rilpiviri/Tenof Ala [Odefsey Tablet]) 1 each PO DAILY@0800 [facility] Last Admin: 12/12/19 11:05 Dose: 1 each Ondansetron HCl (Zofran Injection) 4 mg IVPUSH Q6H PRN PRN Reason: NAUSEA AND/OR VOMITING Last Admin: 12/11/19 09:58 Dose: 4 mg Oxycodone HCl (Roxicodone -) 5 mg PO Q4H PRN PRN Reason: PAIN LEVEL 6-10 Last Admin: 12/11/19 21:09 Dose: 5 mg Pantoprazole Sodium (Protonix -) 40 mg PO DAILY [facility] Last Admin: 12/12/19 10:58 Dose: 40 mg Polyethylene Glycol (Miralax (For Daily Use) -) 17 gm PO BID [facility] Last Admin: 12/12/19 11:01 Dose: 17 gm Rosuvastatin Calcium (Crestor -) 20 mg PO [facility] Last Admin: 12/11/19 21:11 Dose: 20 mg Senna (Senna -) 1 tab PO [facility] Last Admin: 12/11/19 21:09 Dose: 1 tab Timolol Maleate (Timoptic 0.5%) 1 drop OU BID [facility] Last Admin: 12/12/19 11:04 Dose: 1 drop - Objective Vital Signs: Vital Signs Temperature 98 F 12/12/19 14:00 Pulse Rate 80 12/12/19 14:00 Respiratory Rate 20 12/12/19 14:00 Blood Pressure 116/64 12/12/19 14:00 O2 Sat by Pulse Oximetry (%) 99 12/11/19 21:00 Constitutional: Yes: Calm Eyes: Yes: Conjunctiva Clear HENT: Yes: Atraumatic Neck: Yes: Supple Cardiovascular: Yes: S1, S2 Respiratory: Yes: CTA Bilaterally Gastrointestinal: Yes: Soft, Distention Genitourinary: Yes: WNL Musculoskeletal: Yes: WNL Edema: LLE: Trace, RLE: Trace Neurological: Yes: Oriented Psychiatric: Yes: Oriented Labs: CBC, BMP 12/12/19 08:10 12/12/19 08:10 INR, PTT INR 1.01 (0.83-1.09) 12/06/19 07:36 Assessment/Plan Current Medications Generic Name Dose Route Start Last Admin Trade Name Freq PRN Reason Stop Dose Admin Acetaminophen 1,000 mg 12/10/19 16:45 Tylenol - PO Q6H PRN MODERATE PAIN Brimonidine Tartrate 1 drop 12/06/19 22:00 12/12/19 11:50 Alphagan 0.2% - OU 1 drop BID [facility] Administration Carvedilol 3.125 mg 12/06/19 22:00 12/12/19 10:57 Coreg - PO 3.125 mg BID [facility] Administration Citalopram Hydrobromide 40 mg 12/07/19 10:00 12/12/19 10:56 Celexa - PO 40 mg DAILY [facility] Administration Clopidogrel Bisulfate 75 mg 12/10/19 10:00 12/12/19 10:58 Plavix - PO 75 mg DAILY [facility] Administration Docusate Sodium 300 mg 12/10/19 23:10 12/11/19 21:10 Colace - PO 300 mg HS [facility] Administration Doxepin HCl 100 mg 12/10/19 22:00 12/12/19 00:09 Sinequan - PO 100 mg HS [facility] Administration Heparin Sodium (Porcine) 5,000 unit 12/06/19 22:00 12/12/19 10:57 Heparin - SQ 5,000 unit BID [facility] Administration Insulin Aspart 1 vial 12/06/19 16:30 12/12/19 11:55 Novolog Vial Sliding Scale - SQ 6 units ACHS [facility] Administration Protocol Insulin Detemir 35 units 12/08/19 08:45 12/12/19 06:35 Levemir Vial SQ 35 units AM [facility] Administration Latanoprost 1 drop 12/06/19 22:00 12/12/19 00:10 Xalatan 0.005% Eye Drops - OU 1 drop HS [facility] Administration Levothyroxine Sodium 50 mcg 12/07/19 07:00 12/12/19 06:35 Synthroid - PO 50 mcg AM [facility] Administration Melatonin 5 mg 12/07/19 03:40 12/10/19 22:57 Melatonin PO 5 mg HS PRN Administration INSOMNIA Non-Formulary Medication 1 each 12/07/19 08:00 12/12/19 11:05 Emtricitab/Rilpiviri/Tenof Ala [Odefsey Tablet] PO 1 each DAILY@0800 [facility] Administration Ondansetron HCl 4 mg 12/06/19 16:01 12/11/19 09:58 Zofran Injection IVPUSH 4 mg Q6H PRN Administration NAUSEA AND/OR VOMITING Oxycodone HCl 5 mg 12/10/19 22:31 12/11/19 21:09 Roxicodone - PO 5 mg Q4H PRN Administration PAIN LEVEL 6-10 Pantoprazole Sodium 40 mg 12/07/19 10:00 12/12/19 10:58 Protonix - PO 40 mg DAILY [facility] Administration Polyethylene Glycol 17 gm 12/06/19 22:00 12/12/19 11:01 Miralax (For Daily Use) - PO 17 gm BID [facility] Administration Rosuvastatin Calcium 20 mg 12/06/19 22:00 12/11/19 21:11 Crestor - PO 20 mg HS [facility] Administration Senna 1 tab 12/10/19 23:10 12/11/19 21:09 Senna - PO 1 tab HS [facility] Administration Timolol Maleate 1 drop 12/06/19 22:00 12/12/19 11:04 Timoptic 0.5% OU 1 drop BID [facility] Administration Impression 1. ERIKA 2. hx urinary retention 3. hld 4. HIV 5. cad 6. constipation 7. 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
[2019-12-12] MEDS ORDERED: MAGNESIUM CITRATE 300 ML BOTTLE PO PRN (18:17)
[2019-12-12] MEDS ORDERED: LACTULOSE 20 GM/30 ML UDC (FOR ORAL USE ONLY) PO PRN (18:17)
[2019-12-12] MEDS ORDERED: MELATONIN 5 MG TABLETS PO PRN (20:03)
[2019-12-12] MEDS ORDERED: ONDANSETRON 4 MG/2 ML VIAL IVPUSH PRN (20:03)
[2019-12-12] MEDS ORDERED: oxyCODONE HCL 5 MG TABLET PO PRN (20:03)
[2019-12-12] MEDS ORDERED: ACETAMINOPHEN 500 MG TABLET (FP) PO PRN (20:03)
[2019-12-12] MEDS ORDERED: SENNOSIDES 8.6MG TABLET (FP) PO SCH (22:00)
[2019-12-12] MEDS ORDERED: DOXEPIN HCL 25 MG CAPSULE PO SCH (22:00)
[2019-12-12] MEDS ORDERED: LATANOPROST 0.005% OPHTH SOLN 2.5ML BOTTLE OU SCH (22:00)
[2019-12-12] MEDS ORDERED: ROSUVASTATIN CA 20 MG TABLET (FP) PO SCH (22:00)
[2019-12-12] MEDS ORDERED: DOCUSATE SODIUM 100 MG CAPSULE (FP) PO SCH (22:00)
[2019-12-13] MEDS: INSULIN SLIDING SCALE (NOVOLOG) 1 VIAL SQ SCH ×2 (06:25→12:07)
[2019-12-13] MEDS ORDERED: INSULIN (LEVEMIR) 100 UNITS/ML UNITS SQ SCH (07:00)
[2019-12-13] MEDS ORDERED: LEVOTHYROXINE NA 50 MCG TABLET (FP) PO SCH (07:00)
[2019-12-13] MEDS ORDERED: PT OWN MED DRAWER 7, Y5N ONE (08:35)
--- NOTE | 2019-12-13 09:05 | PN ---
Teaching Attending Note Name of Resident: Deep Reyes ATTENDING PHYSICIAN STATEMENT I saw and evaluated the patient. I reviewed the resident's note and discussed the case with the resident. I agree with the resident's findings and plan as documented. SUBJECTIVE: OBJECTIVE: Vital Signs Temperature 97.5 F L 12/13/19 07:27 Pulse Rate 69 12/13/19 07:27 Respiratory Rate 20 12/13/19 07:27 Blood Pressure 129/75 12/13/19 07:27 O2 Sat by Pulse Oximetry (%) 98 12/13/19 01:10 General: Elderly woman, comfortable, not in distress HEENT; mucous membranes moist, no anemia, no jaundice, PERRLA, no nystagmus Neck: No JVD, supple, no bruit, thyroid palpably normal, normal carotid pulsations. Chest: Nontender, minimal basal rales. CVS: S1-S2 regular no murmur/gallop/rub Abdomen: Nondistended, soft, bowel sounds present. Extremities: Right upper extremity status post IM nail postoperative day thyroid no edema., No cough tenderness, pulses present MEDICAL ADMINISTRATIVE: AO X3 , no gross motor sensory deficit CBC, BMP 12/12/19 08:10 12/12/19 08:10 SSESSMENT AND PLAN:64 yo F with a PMHx of DM, HIV, HTN, HLD, CAD s/p CABG 2016, presenting with a mechanical fall found to have right proximal displaced humeral fracture s/p right humerus IM clay[place]. Patient developed ERIKA on CKD , patient c/o constipation with rising BUN creatanine , case discussed with the Harvest Worker recommended mineral oil enema and patient can be discharged home. Problem List - Problems (1) Right supracondylar humerus fracture Assessment/Plan: Status post IM nail, continue pain management, orthopedics cleared to DC. 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 Assessment/Plan: Optimize glycemic control Code(s): E11.29 - TYPE 2 DIABETES MELLITUS W OTH DIABETIC KIDNEY COMPLICATION (4) HIV (human immunodeficiency virus infection) Assessment/Plan: No acute issue continue all home medication Code(s): Z21 - ASYMPTOMATIC HUMAN IMMUNODEFICIENCY VIRUS INFECTION STATUS (5) HLD (hyperlipidemia) Assessment/Plan: Continue statin Code(s): E78.5 - HYPERLIPIDEMIA, UNSPECIFIED (6) Hypothyroid Assessment/Plan: Continue levothyroxine Code(s): E03.9 - HYPOTHYROIDISM, UNSPECIFIED (7) CAD (coronary artery disease) Assessment/Plan: Status post stent hemodynamically stable denies any chest pain continue statin, beta-blockers, Plavix Code(s): I25.10 - ATHSCL HEART DISEASE OF [place] CORONARY ARTERY W/O ANG PCTRS (8) HTN (hypertension) Assessment/Plan: Well-controlled continue all home medications Code(s): I10 - ESSENTIAL (PRIMARY) HYPERTENSION (9) Systolic heart failure secondary to coronary artery disease Assessment/Plan: Patient has history of CAD, hypertension ejection fraction 45 to 50% most likely compensated heart failure with reduced/borderline ejection fraction needs optimization of CHF therapy, already on beta-felicita, statin and Plavix, patient has CKD stage III currently mild ERIKA, ACEI/ARBS intubated as an outpatient. I Code(s): I50.20 - UNSPECIFIED SYSTOLIC (CONGESTIVE) HEART FAILURE; I25.10 - ATHSCL HEART DISEASE OF [place] CORONARY ARTERY W/O ANG PCTRS (10) Acute kidney injury superimposed on CKD Assessment/Plan: Baseline CKD stage III rising BUN/creatinine, creatinine is 2.1 will continue IV hydration follow-up BMP in the morning Code(s): N17.9 - ACUTE KIDNEY FAILURE, UNSPECIFIED; N18.9 - CHRONIC KIDNEY DISEASE, UNSPECIFIED
--- NOTE | 2019-12-13 09:20 | PN ---
Progress Note (short form) - Note Progress Note: Ortho Pt seen and examined s/p right proximal humerus IM clayton. doing well. denies any pain Selected Entries 12/13/19 07:27 Temperature 97.5 F L Pulse Rate 69 Respiratory 20 Rate Blood Pressure 129/75 Laboratory Tests 12/12/19 08:10 WBC 12.5 H Hgb 10.9 Hct 32.8 Plt Count 304 dressing c/d/i, good rom of elbow, wrist and hand nvi a/p ROM exercises as tolerated sling for comfort pain control ok to d/c from ortho pov fu in the office next week
[2019-12-13] MEDS: BRIMONIDINE TARTRATE 0.2% OPHTHALMIC 5 ML BOTTLE OU SCH (09:31)
[2019-12-13] MEDS: HEPARIN NA (PORCINE) 5,000 UNITS/ML 1ML VIAL SQ SCH (09:32)
[2019-12-13] MEDS: POLYETHYLENE GLYCOL 3350 119 GM BTL PO SCH (09:39)
[2019-12-13] MEDS: TIMOLOL 0.5% OPHTHALMIC SOL 5 ML BOTTLE OU SCH (09:39)
[2019-12-13] MEDS ORDERED: CITALOPRAM HYDROBROMIDE 20 MG TABLET PO SCH (10:00)
[2019-12-13] MEDS ORDERED: CLOPIDOGREL BISULFATE 75 MG TABLET (FP) PO SCH (10:00)
[2019-12-13] MEDS ORDERED: PANTOPRAZOLE 40 MG TABLET PO SCH (10:00)
--- NOTE | 2019-12-13 11:38 | DS ---
Physical Exam: SUBJECTIVE: Patient seen and examined. Offers no new complaints. Denies symptoms. OBJECTIVE: Vital Signs Period Temp Pulse Resp BP Sys/Isbell Pulse Ox Last 24 Hr 97.5 F-98.3 F 69-90 17-20 116-140/64-87 98-98 PHYSICAL EXAM GENERAL: a/o x 3, in nad HEAD: Normal with no signs of trauma. EYES:extraocular movements intact, sclera anicteric EARS, NOSE, THROAT: Moist mucous membranes. NECK: supple without lymphadenopathy, JVD LUNGS: Lungs CTA b/l HEART: RRR ABDOMEN: obese, +BS, nt, nd MUSCULOSKELETAL: better ROM LOWER EXTREMITIES: 2+ pulses, No peripheral edema. LABS Laboratory Results - last 24 hr 12/12/19 12/12/19 12/12/19 11:52 17:41 21:54 POC Glucometer 275 255 273 12/13/19 05:35 POC Glucometer 178 HOSPITAL COURSE: 64 yo F with a PMHx of DM, HIV, HTN, HLD, CAD s/p CABG 2016, presenting with a mechanical fall found to have right proximal displaced humeral fracture s/p right humerus IM clay[place]. Patient developed ERIKA on CKD # R Proximal displaced Humeral fracture from a fall mechanical fall -POD#7 s/p right humerus IM clayton -ortho on board -plavix restarted -pain control -PT -will fu in 7-10 days with ortho #Leukocytosis -likely reactive. improved #ERIKA on CKD -Cr 2.3 -will need close nephrology follow up outpatient. patient in agreement. -Recommend BMP within 1 week with PCP/Nephro -renal/bladder US noted -echo noted. EF 40-45% -Lasix held until seen by PCP or nephrology #Urinary retention -follow up with Urology outpatient #DM -cont home meds #HIV -cont. Home meds #HTN -cont. coreg, hctz #CHF -dc lasix. -echo results noted #Hypothyroidosm -cont. Levothyroxin #HLD/CAD -cont. Crestor 20mg -plavix restarted Date of Discharge: 12/13/19 Minutes to complete discharge: 35 Discharge Summary Problems reviewed: Yes Reason For Visit: CLOSED FRACTURE OF RIGHT PROXIMAL HUMERUS Current Active Problems Acute kidney injury superimposed on CKD (Acute) CAD (coronary artery disease) (Acute) Closed fracture of right proximal humerus (Acute) Hypothyroid (Acute) Right supracondylar humerus fracture (Acute) Systolic heart failure secondary to coronary artery disease (Acute) Condition: Stable - Instructions Diet, Activity, Other Instructions: You were admitted because you broke your arm which required surgery. Your kidney function was getting worse and it is recommended to follow up closely with a kidney doctor. We stopped your water pill. You will need blood work by your primary care doctor or kidney doctor to check your kidney function. You will need to follow up with orthopedic surgery in 1 week. It is important to follow up with your primary care doctor in 1 week. You will need to follow up with your kidney doctor for further evaluation of your kidney. You will also need to follow up with a urologist because of your urinary retention. You should be on a bathroom schedule and go to pee more frequently. If you develop shortness of breath, chest pain, fevers, chills, nausea, vomiting , please go to your nearest emergency department. Referrals: Walt Donohue MD [Staff Physician] - 1 Week Reinier Torres MD [Staff Physician] - Jillian Cuello MD [Staff Physician] - 1 Week Dequan Baptiste MD [Staff Physician] - 1 Week Disposition: HOME - Home Medications Comprehensive Discharge Medication List: Ambulatory Orders Citalopram Hydrobromide [Celexa -] 40 mg PO DAILY tablet 12/25/17 Pantoprazole Sodium [Protonix -] 40 mg PO DAILY #14 tablet.ec MDD 1 12/25/17 Brimonidine Tartrate/Timolol [Combigan 0.2%-0.5% Eye Drops] 5 ml OU BID Carvedilol [Coreg -] 3.125 mg PO BID 11/27/19 Clopidogrel Bisulfate [Clopidogrel] 75 mg PO DAILY 11/27/19 Dulaglutide [Trulicity] 1.5 mg SQ WEEKLY 11/27/19 Insulin Glargine,Hum.rec.anlog [Basaglar Kwikpen U-100] 50 unit SQ AM 11/27/19 Levothyroxine [Synthroid -] 50 mcg PO DAILY 11/27/19 Rosuvastatin [Crestor -] 20 mg PO HS 11/27/19 Travoprost [Travatan Z] 5 ml OU HS 11/27/19 Doxepin HCl [Sinequan -] 100 mg PO DAILY capsule 11/29/19 Polyethylene Glycol 3350 [Miralax 119 gm Btl -] 17 gm PO BID #30 bottle Timolol 0.5% [Timoptic 0.5%] 1 drop OU BID drops 11/29/19 Emtricitab/Rilpiviri/Tenof Ala [Odefsey Tablet] 1 each PO DAILY 12/05/19 Acetaminophen [Tylenol .Extra-Strength -] 1,000 mg PO Q6H PRN tablet 12/13/19 Docusate Sodium [Colace -] 300 mg PO HS capsule 12/13/19 Lactulose (Oral Use) [Cephulac -] 20 gm PO TID PRN udc 12/13/19 Sennosides [Senna -] 1 tab PO HS tablet 12/13/19 This patient is new to me today: Yes Date on this admission: 12/13/19 Emergency Visit: Yes ED Registration Date: 12/03/19 Care time: The patient presented to the Emergency Department on the above date and was hospitalized for further evaluation of their emergent condition. Critical Care patient: No - Discharge Referral Referred to [facility] Med P.C.: No ATTENDING PHYSICIAN STATEMENT I saw and evaluated the patient. I reviewed the resident's note and discussed the case with the resident. I agree with the resident's findings and plan as documented. SUBJECTIVE: OBJECTIVE: ASSESSMENT AND PLAN:
[2019-12-13 12:15] LABS: BLOOD UREA NITROGEN 32.8 mg/dL (7-18); CREATININE 2.1 mg/dL (0.55-1.3); POTASSIUM 4.4 mmol/L (3.5-5.1)
[2019-12-13] MEDS: CARVEDILOL 3.125 MG TABLET (FP) PO SCH (14:25)
--- NOTE | 2019-12-13 14:31 | PN ---
Progress Note, Physician History of Present Illness: Pt seen and examined at bedside. She is awake and alert. She denies shortness of breath. - Current Medication List Current Medications: Active Medications Acetaminophen (Tylenol -) 1,000 mg PO Q6H PRN PRN Reason: MODERATE PAIN Brimonidine Tartrate (Alphagan 0.2% -) 1 drop OU BID [facility] Last Admin: 12/13/19 09:31 Dose: 1 drop Carvedilol (Coreg -) 3.125 mg PO BID [facility] Last Admin: 12/13/19 14:25 Dose: 3.125 mg Citalopram Hydrobromide (Celexa -) 40 mg PO DAILY [facility] Last Admin: 12/13/19 09:32 Dose: 40 mg Clopidogrel Bisulfate (Plavix -) 75 mg PO DAILY [facility] Last Admin: 12/13/19 09:32 Dose: 75 mg Docusate Sodium (Colace -) 300 mg PO [facility] Last Admin: 12/12/19 21:50 Dose: Not Given Doxepin HCl (Sinequan -) 100 mg PO [facility] Last Admin: 12/12/19 21:51 Dose: 100 mg Heparin Sodium (Porcine) (Heparin -) 5,000 unit SQ BID [facility] Last Admin: 12/13/19 09:32 Dose: 5,000 unit Insulin Aspart (Novolog Vial Sliding Scale -) 1 vial SQ [facility]; Protocol Last Admin: 12/13/19 12:07 Dose: 8 unit Insulin Detemir (Levemir Vial) 35 units SQ AM [facility] Last Admin: 12/13/19 06:27 Dose: 35 units Lactulose (Cephulac (Oral Use)) 20 gm PO TID PRN PRN Reason: CONSTIPATION Last Admin: 12/12/19 18:52 Dose: 20 gm Latanoprost (Xalatan 0.005% Eye Drops -) 1 drop OU HS [facility] Last Admin: 12/12/19 21:52 Dose: 1 drop Levothyroxine Sodium (Synthroid -) 50 mcg PO AM [facility] Last Admin: 12/13/19 06:25 Dose: 50 mcg Magnesium Citrate (Citroma -) 300 ml PO PRN PRN PRN Reason: CONSTIPATION Last Admin: 12/12/19 18:52 Dose: 300 ml Melatonin (Melatonin) 5 mg PO HS PRN PRN Reason: INSOMNIA Non-Formulary Medication (Emtricitab/Rilpiviri/Tenof Ala [Odefsey Tablet]) 1 each PO DAILY@0800 [facility] Last Admin: 12/13/19 09:31 Dose: 1 each Ondansetron HCl (Zofran Injection) 4 mg IVPUSH Q6H PRN PRN Reason: NAUSEA AND/OR VOMITING Oxycodone HCl (Roxicodone -) 5 mg PO Q4H PRN PRN Reason: PAIN LEVEL 6-10 Last Admin: 12/13/19 09:38 Dose: 5 mg Pantoprazole Sodium (Protonix -) 40 mg PO DAILY [facility] Last Admin: 12/13/19 09:32 Dose: 40 mg Polyethylene Glycol (Miralax (For Daily Use) -) 17 gm PO BID [facility] Last Admin: 12/13/19 09:39 Dose: Not Given Rosuvastatin Calcium (Crestor -) 20 mg PO [facility] Last Admin: 12/12/19 21:51 Dose: 20 mg Senna (Senna -) 1 tab PO [facility] Last Admin: 12/12/19 21:50 Dose: Not Given Timolol Maleate (Timoptic 0.5%) 1 drop OU BID [facility] Last Admin: 12/13/19 09:39 Dose: 1 drop - Objective Vital Signs: Vital Signs Temperature 98.2 F 12/13/19 09:35 Pulse Rate 78 12/13/19 09:35 Respiratory Rate 17 12/13/19 09:35 Blood Pressure 127/80 12/13/19 09:35 O2 Sat by Pulse Oximetry (%) 98 12/13/19 09:40 Constitutional: Yes: Calm Eyes: Yes: Conjunctiva Clear HENT: Yes: Atraumatic Neck: Yes: Supple Cardiovascular: Yes: S1, S2 Respiratory: Yes: CTA Bilaterally Gastrointestinal: Yes: Normal Bowel Sounds, Soft Genitourinary: Yes: WNL Musculoskeletal: Yes: WNL Edema: No Neurological: Yes: Oriented Psychiatric: Yes: Oriented Labs: CBC, BMP 12/12/19 08:10 12/13/19 11:05 INR, PTT INR 1.01 (0.83-1.09) 12/06/19 07:36 Assessment/Plan Current Medications Generic Name Dose Route Start Last Admin Trade Name Freq PRN Reason Stop Dose Admin Acetaminophen 1,000 mg 12/12/19 20:03 Tylenol - PO Q6H PRN MODERATE PAIN Brimonidine Tartrate 1 drop 12/12/19 22:00 12/13/19 09:31 Alphagan 0.2% - OU 1 drop BID [facility] Administration Carvedilol 3.125 mg 12/12/19 22:00 12/13/19 14:25 Coreg - PO 3.125 mg BID [facility] Administration Citalopram Hydrobromide 40 mg 12/13/19 10:00 12/13/19 09:32 Celexa - PO 40 mg DAILY [facility] Administration Clopidogrel Bisulfate 75 mg 12/13/19 10:00 12/13/19 09:32 Plavix - PO 75 mg DAILY [facility] Administration Docusate Sodium 300 mg 12/12/19 22:00 12/12/19 21:50 Colace - PO Not Given HS [facility] Doxepin HCl 100 mg 12/12/19 22:00 12/12/19 21:51 Sinequan - PO 100 mg HS [facility] Administration Heparin Sodium (Porcine) 5,000 unit 12/12/19 22:00 12/13/19 09:32 Heparin - SQ 5,000 unit BID [facility] Administration Insulin Aspart 1 vial 12/12/19 22:00 12/13/19 12:07 Novolog Vial Sliding Scale - SQ 8 unit ACHS [facility] Administration Protocol Insulin Detemir 35 units 12/13/19 07:00 12/13/19 06:27 Levemir Vial SQ 35 units AM [facility] Administration Lactulose 20 gm 12/12/19 18:17 12/12/19 18:52 Cephulac (Oral Use) PO 20 gm TID PRN Administration CONSTIPATION Latanoprost 1 drop 12/12/19 22:00 12/12/19 21:52 Xalatan 0.005% Eye Drops - OU 1 drop HS [facility] Administration Levothyroxine Sodium 50 mcg 12/13/19 07:00 12/13/19 06:25 Synthroid - PO 50 mcg AM [facility] Administration Magnesium Citrate 300 ml 12/12/19 18:17 12/12/19 18:52 Citroma - PO 300 ml PRN PRN Administration CONSTIPATION Melatonin 5 mg 12/12/19 20:03 Melatonin PO HS PRN INSOMNIA Non-Formulary Medication 1 each 12/13/19 08:00 12/13/19 09:31 Emtricitab/Rilpiviri/Tenof Ala [Odefsey Tablet] PO 1 each DAILY@0800 [facility] Administration Ondansetron HCl 4 mg 12/12/19 20:03 Zofran Injection IVPUSH Q6H PRN NAUSEA AND/OR VOMITING Oxycodone HCl 5 mg 12/12/19 20:03 12/13/19 09:38 Roxicodone - PO 5 mg Q4H PRN Administration PAIN LEVEL 6-10 Pantoprazole Sodium 40 mg 12/13/19 10:00 12/13/19 09:32 Protonix - PO 40 mg DAILY [facility] Administration Polyethylene Glycol 17 gm 12/12/19 22:00 12/13/19 09:39 Miralax (For Daily Use) - PO Not Given BID [facility] Rosuvastatin Calcium 20 mg 12/12/19 22:00 12/12/19 21:51 Crestor - PO 20 mg HS [facility] Administration Senna 1 tab 12/12/19 22:00 12/12/19 21:50 Senna - PO Not Given HS [facility] Timolol Maleate 1 drop 12/12/19 22:00 12/13/19 09:39 Timoptic 0.5% OU 1 drop BID [facility] Administration Impression 1. ERIKA 2. hx urinary retention 3. hld 4. HIV 5. cad 6. constipation 7. s/p right humerus repair Plan - reviewed repeat labs, creatinine is starting to improve - explained the importance of follow up with pt - she will need more extensive workup - will also need to see what last viral load and cd4 count were - she agrees to come to the office - lasix on hold for now
[2019-12-13 14:44] VITALS: BP 114/68; PULSE 87; TEMP 97.9
== END 2019-12-13 14:51 | disposition home or self-care (01) | DRG 493 ==
LOC: JER 02:49 → JERBED 07:32 → J6S 16:16 → JSAMEDAYSX 12-06 12:50 → J4W 12-06 17:44 → J8W 12-11 19:40
PROVIDERS: ADMIT Internal Medicine; ATTEND Internal Medicine
PROC: 0PSC06Z Reposition Right Humeral Head with Intramedullary Internal Fixation Device, Open Approach (ICD-10-PCS; principal; 2019-12-06 14:00)
DX: S42.291A Other displaced fracture of upper end of right humerus, initial encounter for closed fracture (principal); N17.9 Acute kidney failure, unspecified; I13.0 Hypertensive heart and chronic kidney disease with heart failure and stage 1 through stage 4 chronic kidney disease, or unspecified chronic kidney disease; I50.20 Unspecified systolic (congestive) heart failure; E11.65 Type 2 diabetes mellitus with hyperglycemia; E78.5 Hyperlipidemia, unspecified; E03.9 Hypothyroidism, unspecified; D72.829 Elevated white blood cell count, unspecified; I25.10 Atherosclerotic heart disease of native coronary artery without angina pectoris; E11.22 Type 2 diabetes mellitus with diabetic chronic kidney disease; N18.3 Chronic kidney disease, stage 3 (moderate); Z21 Asymptomatic human immunodeficiency virus [HIV] infection status; K59.09 Other constipation; R33.9 Retention of urine, unspecified; W18.39XA Other fall on same level, initial encounter; Y92.098 Other place in other non-institutional residence as the place of occurrence of the external cause; Z95.1 Presence of aortocoronary bypass graft; Z87.891 Personal history of nicotine dependence
CPT/HCPCS: 36415; 70450-TC; 71045-TC-FY; 72125-TC; 73030-TC-RT-FY; 76775-TC; 76856-TC; 80048; 80053; 81003; 82550; 82553; 82962; 83735; 84484; 85025; 85610; 85730; 86850; 86900; 86901; 93005; 93010; 93306-TC; 94760; 97116-GP; 97161-GP; 99285-25; J0131; J1644; J7030

== ENCOUNTER 2020-01-17 23:24 | Emergency (ER) | payer OTHER ==
[2020-01-17 23:33] VITALS: BMI 32.8
--- NOTE | 2020-01-18 00:01 | PDOC ---
Attending Attestation - Resident Resident Name: Alberto Wyatt - ED Attending Attestation I have performed the following: I have examined & evaluated the patient, The case was reviewed & discussed with the resident, I agree w/resident's findings & plan - HPI HPI: 01/18/20 19:38 64 yo F with a PMHx of DM, HIV, HTN, HLD, CAD s/p CABG 2017, s/p fall and shoulder repair 1 month ago, presenting today with urinary incontinence. Reports that 2 weeks ago she started having difficulty holding in her urine in time to make it to the restroom. Reports that she wears Depends but that she is soaking through those with her urine. Denies dysuria, hematuria. Denies fever/ chills. Denies nausea/vomiting/abdominal pain. Denies back pain. Denies chest pain/shortness of breath. Denies foul smelling urine. Reports that she is usually able to hold in her urine for a few minutes but becomes incontinent when she is not able to make it to the bathroom in time. - Physicial Exam PE: 01/18/20 19:38 Agree with resident exam. Heart and lungs normal no fever no abd pain or rebound or guarding. No flank pain. - Medical Decision Making 01/18/20 19:40 Pt received IVF and she has normal vitals at this time She is feeling better We will treat for a UTI, based on the fact that she has a lot of bacteria in her urine and the fact that she is incontinent. Pt needs urology outpatient follow up.
--- NOTE | 2020-01-18 01:01 | PDOC ---
History of Present Illness - General Chief Complaint: Urinary Problem Stated Complaint: URINARY PROBLEMS Time Seen by Provider: 01/17/20 23:44 - History of Present Illness Initial Comments: 64 yo F with a PMHx of DM, HIV, HTN, HLD, CAD s/p CABG 2017, s/p fall and shoulder repair 1 month ago, presenting today with urinary incontinence. Reports that 2 weeks ago she started having difficulty holding in her urine in time to make it to the restroom. Reports that she wears Depends but that she is soaking through those with her urine. Denies dysuria, hematuria. Denies fever/ chills. Denies nausea/vomiting/abdominal pain. Denies back pain. Denies chest pain/shortness of breath. Denies foul smelling urine. Reports that she is usually able to hold in her urine for a few minutes but becomes incontinent when she is not able to make it to the bathroom in time. Also reports a small 3 mm laceration to the lateral aspect of left great toe that she noticed a couple days ago. Past History - Past Medical History Allergies/Adverse Reactions: Allergies Allergy/AdvReac Type Severity Reaction Status Date / Time amoxicillin Allergy Verified 01/17/20 23:33 metronidazole [From Flagyl] Allergy Verified 01/17/20 23:33 Home Medications: Ambulatory Orders Citalopram Hydrobromide [Celexa -] 40 mg PO DAILY tablet 12/25/17 Pantoprazole Sodium [Protonix -] 40 mg PO DAILY #14 tablet.ec MDD 1 12/25/17 Brimonidine Tartrate/Timolol [Combigan 0.2%-0.5% Eye Drops] 5 ml OU BID Carvedilol [Coreg -] 3.125 mg PO BID 11/27/19 Clopidogrel Bisulfate [Clopidogrel] 75 mg PO DAILY 11/27/19 Dulaglutide [Trulicity] 1.5 mg SQ WEEKLY 11/27/19 Insulin Glargine,Hum.rec.anlog [Basaglar Kwikpen U-100] 50 unit SQ AM 11/27/19 Levothyroxine [Synthroid -] 50 mcg PO DAILY 11/27/19 Rosuvastatin [Crestor -] 20 mg PO HS 11/27/19 Travoprost [Travatan Z] 5 ml OU HS 11/27/19 Doxepin HCl [Sinequan -] 100 mg PO DAILY capsule 11/29/19 Polyethylene Glycol 3350 [Miralax 119 gm Btl -] 17 gm PO BID #30 bottle Timolol 0.5% [Timoptic 0.5%] 1 drop OU BID drops 11/29/19 Emtricitab/Rilpiviri/Tenof Ala [Odefsey Tablet] 1 each PO DAILY 12/05/19 Acetaminophen [Tylenol .Extra-Strength -] 1,000 mg PO Q6H PRN tablet 12/13/19 Docusate Sodium [Colace -] 300 mg PO HS capsule 12/13/19 Lactulose (Oral Use) [Cephulac -] 20 gm PO TID PRN udc 12/13/19 Sennosides [Senna -] 1 tab PO HS tablet 12/13/19 Sulfamethoxazole/Trimethoprim [Bactrim Ds -] 1 tab PO BID #14 tablet 01/18/20 Anemia: No Asthma: No Cancer: No Cardiac Disorders: Yes CVA: No COPD: No CHF: No Dementia: No Diabetes: Yes GI Disorders: No Disorders: No HTN: Yes Hypercholesterolemia: Yes Liver Disease: No Seizures: No Thyroid Disease: Yes - Surgical History Abdominal Surgery: Yes Appendectomy: Yes Cardiac Surgery: Yes (stent) Cholecystectomy: No Lung Surgery: No Neurologic Surgery: No Orthopedic Surgery: No - Immunization History Immunization Up to Date: Yes - Psycho Social/Smoking Cessation Hx Smoking Status: No Smoking History: Never smoked Have you smoked in the past 12 months: No Number of Cigarettes Smoked Daily: 0 If you are a former smoker, when did you quit?: 0 Hx Alcohol Use: No Drug/Substance Use Hx: No Substance Use Type: None Hx Substance Use Treatment: No Review of Systems - Review of Systems Comments:: GENERAL/CONSTITUTIONAL: No fever or chills. No weakness._ HEAD, EYES, EARS, NOSE AND THROAT: No change in vision. No change in hearing. No sore throat._ CARDIOVASCULAR: No chest pain or shortness of breath_ RESPIRATORY: Denies cough, hemoptysis_ GASTROINTESTINAL: No nausea, vomiting, diarrhea or constipation._ GENITOURINARY: Reports urinary incontinence. Denies dysuria, hematuria, frequency. MUSCULOSKELETAL: Reports mild laceration to left great toe. No neck or back pain._ SKIN: No rash_ NEUROLOGIC: No headache, vertigo, loss of consciousness, or change in strength/ sensation._ ENDOCRINE: No increased thirst. No abnormal weight change_ HEMATOLOGIC/LYMPHATIC: No anemia, easy bleeding, or history of blood clots._ ALLERGIC/IMMUNOLOGIC: No hives or skin allergy._ *Physical Exam - Vital Signs Last Vital Signs Temp Pulse Resp BP Pulse Ox 98.1 F 116 H 18 142/78 99 01/17/20 23:26 01/17/20 23:26 01/17/20 23:26 01/17/20 23:26 01/17/20 23:26 - Physical Exam GENERAL: Awake, alert, and oriented to person/place/time, in no acute distress_ HEAD: No signs of trauma, normocephalic, atraumatic _ EYES: PERRLA, EOMI, sclera anicteric, conjunctiva clear_ ENT: Hearing grossly normal, nares patent, oropharynx clear without exudates. No uvular deviation. Moist mucosa_ NECK: Normal ROM, supple, no lymphadenopathy, JVD, or masses_ LUNGS: No distress, speaks in full sentences, clear to auscultation bilaterally _ HEART: Regular rate and rhythm, normal S1 and S2, no murmurs appreciated, peripheral pulses normal and equal bilaterally._ ABDOMEN: Soft, obese, nontender, normoactive bowel sounds. No guarding, no rebound. No masses_ BACK: No CVA TTP. EXTREMITIES: Normal inspection, Normal range of motion, no edema. No clubbing or cyanosis. Small 3 mm laceration to left lateral aspect of great toe. NEUROLOGICAL: Cranial nerves II through XII grossly intact. Normal speech, normal gait, no focal sensorimotor deficits _ SKIN: Warm, Dry, normal turgor, no rashes or lesions noted_ ED Treatment Course - LABORATORY CBC & Chemistry Diagram: 01/18/20 01:55 01/18/20 01:55 Medical Decision Making - Medical Decision Making 01/18/20 01:37 64F presenting with 2 weeks of urinary incontinence. -ua, ucx -cbc, cmp 01/18/20 06:34 Finger stick glucose 212. Labs reviewed. Laboratory Last Values WBC 12.6 K/mm3 (4.0-10.0) H 01/18/20 01:55 RBC 4.26 M/mm3 (3.60-5.2) 01/18/20 01:55 Hgb 12.6 GM/dL (10.7-15.3) 01/18/20 01:55 Hct 38.3 % (32.4-45.2) D 01/18/20 01:55 MCV 90.0 fl (80-96) 01/18/20 01:55 MCH 29.5 pg (25.7-33.7) 01/18/20 01:55 MCHC 32.8 g/dl (32.0-36.0) 01/18/20 01:55 RDW 14.0 % (11.6-15.6) 01/18/20 01:55 Plt Count 291 K/MM3 (134-434) 01/18/20 01:55 MPV 8.6 fl (7.5-11.1) 01/18/20 01:55 Absolute Neuts (auto) 4.7 K/mm3 (1.5-8.0) 01/18/20 01:55 Neutrophils % 37.3 % (42.8-82.8) L D 01/18/20 01:55 Lymphocytes % 54.6 % (8-40) H D 01/18/20 01:55 Monocytes % 5.2 % (3.8-10.2) 01/18/20 01:55 Eosinophils % 2.1 % (0-4.5) 01/18/20 01:55 Basophils % 0.8 % (0-2.0) 01/18/20 01:55 Nucleated RBC % 0 % (0-0) 01/18/20 01:55 Sodium 137 mmol/L (136-145) 01/18/20 01:55 Potassium 4.5 mmol/L (3.5-5.1) 01/18/20 01:55 Chloride 101 mmol/L (98-107) 01/18/20 01:55 Carbon Dioxide 30 mmol/L (21-32) 01/18/20 01:55 Anion Gap 6 MMOL/L (8-16) L 01/18/20 01:55 BUN 24.8 mg/dL (7-18) H 01/18/20 01:55 Creatinine 1.6 mg/dL (0.55-1.3) H 01/18/20 01:55 Est GFR (CKD-EPI)AfAm 39.06 01/18/20 01:55 Est GFR (CKD-EPI)NonAf 33.70 01/18/20 01:55 POC Glucometer 212 UNITS (80-120) 01/18/20 06:14 Random Glucose 311 mg/dL (74-106) H 01/18/20 01:55 Calcium 9.3 mg/dL (8.5-10.1) 01/18/20 01:55 Total Bilirubin 0.3 mg/dL (0.2-1) 01/18/20 01:55 AST 15 U/L (15-37) 01/18/20 01:55 ALT 14 U/L (13-61) 01/18/20 01:55 Alkaline Phosphatase 209 U/L (45-117) H 01/18/20 01:55 Total Protein 7.6 g/dl (6.4-8.2) 01/18/20 01:55 Albumin 3.2 g/dl (3.4-5.0) L 01/18/20 01:55 Urine Color Yellow 01/18/20 01:55 Urine Appearance Clear 01/18/20 01:55 Urine pH 7.5 (5.0-8.0) 01/18/20 01:55 Ur Specific [place] 1.015 (1.010-1.035) 01/18/20 01:55 Urine Protein 3+ (NEGATIVE) H 01/18/20 01:55 Urine Glucose (UA) 3+ (NEGATIVE) H 01/18/20 01:55 Urine Ketones Negative (NEGATIVE) 01/18/20 01:55 Urine Blood Trace (NEGATIVE) 01/18/20 01:55 Urine Nitrite Negative (NEGATIVE) 01/18/20 01:55 Urine Bilirubin Negative (NEGATIVE) 01/18/20 01:55 Urine Urobilinogen 0.2 mg/dL (0.2-1.0) 01/18/20 01:55 Ur Leukocyte Esterase Negative (NEGATIVE) 01/18/20 01:55 Urine WBC (Auto) 6 /hpf (0-5) 01/18/20 01:55 Urine RBC (Auto) 10 /hpf (0-4) 01/18/20 01:55 Urine Casts (Auto) 3 /lpf (0-8) 01/18/20 01:55 U Epithel Cells (Auto) 4.1 /HPF (0-5/HPF) 01/18/20 01:55 Urine Bacteria (Auto) 81.0 /hpf (NEGATIVE) 01/18/20 01:55 01/18/20 06:38 Pt reassessed. Discussed importance of urology OP f/u for incontinence. Plan to d/c home with macrobid. All questions answered. Return precautions given. Pt verbalized understanding and agreement with plan. Discharge - Discharge Information Problems reviewed: Yes Clinical Impression/Diagnosis: Incontinence Condition: Stable Disposition: HOME - Admission No - Additional Discharge Information Prescriptions: Sulfamethoxazole/Trimethoprim [Bactrim Ds -] 1 tab PO BID #14 tablet - Follow up/Referral - Patient Discharge Instructions Patient Printed Discharge Instructions: DI for Urinary Incontinence Additional Instructions: Please make an appointment with a urologist to discuss your urinary incontinence. Please take the Macrobid antibiotic for urinary tract infection 1 tab twice per day for 7 days. If you experience any new, worsening, or concerning symptoms, including burning on urination, headache, nausea, vomiting, or any other concerns, please return to the emergency department. - Post Discharge Activity
[2020-01-18 02:08] LABS: BASO % 0.8 % (0-2.0); EOS % 2.1 % (0-4.5); HEMATOCRIT 38.3 % (32.4-45.2); HEMOGLOBIN 12.6 GM/dL (10.7-15.3); LYMPH % 54.6 % (8-40); MCH 29.5 pg (25.7-33.7); MCHC 32.8 g/dl (32.0-36.0); MEAN PLT VOLUME 8.6 fl (7.5-11.1); MONO % 5.2 % (3.8-10.2); NEUT % 37.3 % (42.8-82.8); PLATELET COUNT 291 K/MM3 (134-434); RBC 4.26 M/mm3 (3.60-5.2); WHITE BLOOD COUNT 12.6 K/mm3 (4.0-10.0)
[2020-01-18 02:35] LABS: ALBUMIN 3.2 g/dl (3.4-5.0); BILIRUBIN,TOTAL 0.3 mg/dL (0.2-1); BLOOD UREA NITROGEN 24.8 mg/dL (7-18); CALCIUM 9.3 mg/dL (8.5-10.1); CREATININE 1.6 mg/dL (0.55-1.3); POTASSIUM 4.5 mmol/L (3.5-5.1); TOT PROT 7.6 g/dl (6.4-8.2)
[2020-01-18 02:42] LABS: EPI CELLS 4.1 /HPF (0-5/HPF); HYALINE CASTS 3 /lpf (0-8); PH,URINE 7.5 (5.0-8.0); URINE APPEARANCE CLEAR; URINE BILIRUBIN NEGATIVE (NEGATIVE); URINE COLOR YELLOW; URINE GLUCOSE (UA) 3+ (NEGATIVE); URINE KETONE NEGATIVE (NEGATIVE); URINE LEUK ESTERASE NEGATIVE (NEGATIVE); URINE NITRITE NEGATIVE (NEGATIVE); URINE PROTEIN 3+ (NEGATIVE); URINE RBC 10 /hpf (0-4); URINE UROBILINOGEN 0.2 mg/dL (0.2-1.0); URINE WBC 6 /hpf (0-5)
[2020-01-18] MEDS ORDERED: SODIUM CHLORIDE 0.9% 500 ML INFUS.BAG IV ONE (03:19)
[2020-01-18] MEDS ORDERED: SULFAMETHOXAZOLE/TRIMETHOPRIM 800MG/160MG D.S. TABLET PO ONE (04:59)
[2020-01-18] MEDS ORDERED: SULFAMETHOXAZOLE/TRIMETHOPRIM 800MG/160MG D.S. TABLET ONE (05:14)
[2020-01-18 06:55] VITALS: BP 133/75; PULSE 85; TEMP 97.6
== END 2020-01-18 07:03 | disposition home or self-care (01) ==
LOC: JER 23:24
PROC: 3E0337Z Introduction of Electrolytic and Water Balance Substance into Peripheral Vein, Percutaneous Approach (ICD-10-PCS; principal; 2020-01-17)
DX: R32 Unspecified urinary incontinence (principal); I10 Essential (primary) hypertension; E11.9 Type 2 diabetes mellitus without complications; Z21 Asymptomatic human immunodeficiency virus [HIV] infection status; E78.5 Hyperlipidemia, unspecified; Z95.1 Presence of aortocoronary bypass graft; I25.10 Atherosclerotic heart disease of native coronary artery without angina pectoris
CPT/HCPCS: 36415; 80053; 81003; 82962; 85025; 87086; 99283-25

== ENCOUNTER 2020-01-27 06:12 | Inpatient (IN) | payer OTHER ==
--- NOTE | 2020-01-27 07:08 | PDOC ---
History of Present Illness - General Chief Complaint: Chest Pain Stated Complaint: CHEST PAIN Time Seen by Provider: 01/27/20 07:07 - History of Present Illness Initial Comments: HPI: 64yo F with PMH of HIV, CAD s/p 1 stent in 2017, HTN, HLD, DM, CHF, CKD presenting with chest pain. The pain is described as "sharp" and "pressure" located on the left side of her chest. Nonradiating without associated nausea, vomiting, or diaphoresis. Patient though the pain was "just gas" and took some baking soda which did not relieve her symptoms. The pain will last for about ten or fifteen minutes before going away on its own. Patient has never had pain like this before. Reports dyspnea on exertion: used to walk without difficulty but h ad to take a break about every twenty minutes yesterday. No hemoptysis, no recent surgical history, no recent immobilization, no hormone use, no history of DVT or PE. No fever but endorses chills. ROS: Constitutional: no fever, +chills HEENT: no throat pain, no dysphagia Cardiovascular: +chest pain, no palpitations Respiratory: no cough, +shortness of breath Gastrointestinal: no abdominal pain, no nausea Genitourinary: no dysuria, no hematuria Musculoskeletal: no myalgia, no arthralgia Skin: no rash, no itching Neurologic: no headache, no weakness Psych: no agitation, no anxiety PE: General: Awake, alert, and fully oriented, in no acute distress Head: No signs of trauma Eyes: EOMI, sclera anicteric ENT: Moist mucus membranes Neck: Normal ROM, supple Lungs: Lungs clear, Normal breath sounds Cardio: Regular rhythm, S1 and S2 present Abdomen: Soft, nontender. No guarding, no rebound, no masses Extremities: Normal range of motion, Distal pulses present, No calf tenderness SKIN: Warm, Dry, normal turgor Neurologic: Cranial nerves II through XII grossly intact. Normal speech ED Course/MDM: DDX including but not limited to ACS, PE, PNA, anemia, metabolic derangement Labs, EKG, CXR HEART score is at least 4 due to history, age, and risk factors; plan for admission EKG: rate 104, Qtc 494, sinus 01/27/20 07:08 CBC WBC 11.8 K/mm3 (4.0-10.0) H 01/27/20 08:10 RBC 4.47 M/mm3 (3.60-5.2) 01/27/20 08:10 Hgb 13.2 GM/dL (10.7-15.3) 01/27/20 08:10 Hct 39.2 % (32.4-45.2) 01/27/20 08:10 MCV 87.8 fl (80-96) 01/27/20 08:10 MCH 29.6 pg (25.7-33.7) 01/27/20 08:10 MCHC 33.7 g/dl (32.0-36.0) 01/27/20 08:10 RDW 14.3 % (11.6-15.6) 01/27/20 08:10 Plt Count 240 K/MM3 (134-434) 01/27/20 08:10 MPV 8.4 fl (7.5-11.1) 01/27/20 08:10 Absolute Neuts (auto) 5.1 K/mm3 (1.5-8.0) 01/27/20 08:10 Neutrophils % 42.8 % (42.8-82.8) 01/27/20 08:10 Lymphocytes % 50.0 % (8-40) H 01/27/20 08:10 Monocytes % 5.2 % (3.8-10.2) 01/27/20 08:10 Eosinophils % 1.6 % (0-4.5) 01/27/20 08:10 Basophils % 0.4 % (0-2.0) 01/27/20 08:10 Nucleated RBC % 0 % (0-0) 01/27/20 08:10 Mild leukocytosis No anemia CMP Sodium 135 mmol/L (136-145) L 01/27/20 08:10 Potassium 4.1 mmol/L (3.5-5.1) 01/27/20 08:10 Chloride 101 mmol/L (98-107) 01/27/20 08:10 Carbon Dioxide 28 mmol/L (21-32) 01/27/20 08:10 Anion Gap 6 MMOL/L (8-16) L 01/27/20 08:10 BUN 29.9 mg/dL (7-18) H 01/27/20 08:10 Creatinine 1.4 mg/dL (0.55-1.3) H 01/27/20 08:10 Est GFR (CKD-EPI)AfAm 45.90 01/27/20 08:10 Est GFR (CKD-EPI)NonAf 39.61 01/27/20 08:10 Random Glucose 304 mg/dL (74-106) H 01/27/20 08:10 Calcium 9.2 mg/dL (8.5-10.1) 01/27/20 08:10 Total Bilirubin 0.2 mg/dL (0.2-1) 01/27/20 08:10 AST 26 U/L (15-37) 01/27/20 08:10 ALT 13 U/L (13-61) 01/27/20 08:10 Alkaline Phosphatase 233 U/L (45-117) H 01/27/20 08:10 Creatine Kinase 90 U/L (26-192) 01/27/20 08:10 Troponin I < 0.02 ng/ml (0.00-0.05) 01/27/20 08:10 B-Natriuretic Peptide 33.6 pg/ml (5-125) 01/27/20 08:10 Total Protein 7.1 g/dl (6.4-8.2) 01/27/20 08:10 Albumin 2.8 g/dl (3.4-5.0) L 01/27/20 08:10 Electrolytes unremarkable Cr mildly elevated No transaminitis Tpn undetectable BNP normal Discussed case with Dr. Slade who accepted patient for tele obs under herself 01/27/20 09:32 Past History - Past Medical History Allergies/Adverse Reactions: Allergies Allergy/AdvReac Type Severity Reaction Status Date / Time amoxicillin Allergy Verified 01/27/20 10:33 metronidazole [From Flagyl] Allergy Verified 01/27/20 10:33 Home Medications: Ambulatory Orders Brimonidine Tartrate/Timolol [Combigan 0.2%-0.5% Eye Drops] 1 drop OU BID 11/27/19 Carvedilol [Coreg -] 3.125 mg PO BID 11/27/19 Clopidogrel Bisulfate [Clopidogrel] 75 mg PO DAILY 11/27/19 Dulaglutide [Trulicity] 1.5 mg SQ WEEKLY 11/27/19 Insulin Glargine,Hum.rec.anlog [Basaglar Kwikpen U-100] 50 unit SQ AM 11/27/19 Levothyroxine [Synthroid -] 50 mcg PO DAILY 11/27/19 Rosuvastatin [Crestor -] 20 mg PO HS 11/27/19 Travoprost [Travatan Z] 1 drop OU HS 11/27/19 Emtricitab/Rilpiviri/Tenof Ala [Odefsey Tablet] 1 each PO DAILY 12/05/19 Anemia: No Asthma: No Cancer: No Cardiac Disorders: Yes CVA: No COPD: No CHF: No Dementia: No Diabetes: Yes GI Disorders: No Disorders: No HTN: Yes Hypercholesterolemia: Yes Liver Disease: No Seizures: No Thyroid Disease: Yes - Surgical History Abdominal Surgery: Yes Appendectomy: Yes Cardiac Surgery: Yes (stent) Cholecystectomy: No Lung Surgery: No Neurologic Surgery: No Orthopedic Surgery: No - Immunization History Td Vaccination: Yes TDAP Vaccination: Yes Immunization Up to Date: Yes - Psycho Social/Smoking Cessation Hx Smoking Status: No Smoking History: Never smoked Have you smoked in the past 12 months: No Number of Cigarettes Smoked Daily: 0 If you are a former smoker, when did you quit?: 0 Information on smoking cessation initiated: No Hx Alcohol Use: Yes (occa) Drug/Substance Use Hx: No Substance Use Type: None Hx Substance Use Treatment: No *Physical Exam - Vital Signs Last Vital Signs Temp Pulse Resp BP Pulse Ox 97.8 F 110 H 20 141/91 96 01/27/20 06:36 01/27/20 06:36 01/27/20 06:36 01/27/20 06:36 01/27/20 06:36 Heart Score/ECG Review - History History: Moderately suspicious - Electrocardiogram EKG: Normal - Age Age: 45-65 - Risk Factors Risk Factors Heart Score: Yes Hx Hypercholesterolemia, Yes Hx Hypertension, Yes Hx Diabetes Based on the list above the patient has:: >/=3 risk factors or Hx atherosclerotic disease - Troponin Troponin: </= normal limit - Score Heart Score - Total: 4 ED Treatment Course - LABORATORY CBC & Chemistry Diagram: 01/27/20 08:10 01/27/20 08:10 Discharge - Discharge Information Problems reviewed: Yes Clinical Impression/Diagnosis: Chest pain Qualifiers: Chest pain type: other chest pain Qualified Code(s): R07.89 - Other chest pain Condition: Guarded - Admission Yes - Follow up/Referral - Patient Discharge Instructions - Post Discharge Activity
--- NOTE | 2020-01-27 08:26 | PDOC ---
Attending Attestation - Resident Resident Name: Malgorzata Barker - ED Attending Attestation I have performed the following: I have examined & evaluated the patient, The case was reviewed & discussed with the resident, I agree w/resident's findings & plan, Exceptions are as noted - HPI HPI: 01/27/20 08:20 64 yo F h/o HTN HLD DM HIV here with chest pain since yesterday. also c/o exertional sob. no fever does report chills. no h/o similar pain in the past. no h/o pe o dvt. no leg swelling but does report ankle swelling bilaterally 01/27/20 08:21 - Physicial Exam PE: 01/27/20 08:26 awake alert lungs clear bilat heart rrr no mrg abd soft nt nd ext wwp no edema. no calf tenderness. nuero awake alert oriented x 3. - Medical Decision Making 01/27/20 08:29 64 yo F mul med problems her with c/o chest pain. differential infection, acs, gerd. no risk factors for PE. chf. plan labs cxr ekg troponin. pt ekg wihsinus tachycardia [address] elevation or depression. left axis. cxr with atelectasis vs. scarring right base. pt afebrile. labs pending. 01/27/20 12:44 troponin is negative. Cr 1.4. wbc 11, cxr changes at right base, read normal by radiology. pt denies cough or fever.
[2020-01-27 08:38] LABS: BASO % 0.4 % (0-2.0); EOS % 1.6 % (0-4.5); HEMATOCRIT 39.2 % (32.4-45.2); HEMOGLOBIN 13.2 GM/dL (10.7-15.3); MCH 29.6 pg (25.7-33.7); MCHC 33.7 g/dl (32.0-36.0); MEAN CELL VOLUME 87.8 fl (80-96); MEAN PLT VOLUME 8.4 fl (7.5-11.1); MONO % 5.2 % (3.8-10.2); NEUT % 42.8 % (42.8-82.8); PLATELET COUNT 240 K/MM3 (134-434); RBC 4.47 M/mm3 (3.60-5.2); RDW 14.3 % (11.6-15.6); WHITE BLOOD COUNT 11.8 K/mm3 (4.0-10.0)
[2020-01-27 09:04] LABS: PROTHROMBIN TIME (PATIENT) 11.8 SEC (9.7-13.0)
[2020-01-27 09:07] LABS: ACTIVATED PTT 29.8 SECONDS (25.2-36.5)
[2020-01-27 09:16] LABS: ALBUMIN 2.8 g/dl (3.4-5.0); ALK PHOS 233 U/L (45-117); ANION GAP 6 MMOL/L (8-16); BILIRUBIN,TOTAL 0.2 mg/dL (0.2-1); BLOOD UREA NITROGEN 29.9 mg/dL (7-18); CALCIUM 9.2 mg/dL (8.5-10.1); CHLORIDE 101 mmol/L (98-107); CO2 28 mmol/L (21-32); CREATININE 1.4 mg/dL (0.55-1.3); GLUCOSE,RANDOM 304 mg/dL (74-106); N-TERMINAL BNP 33.6 pg/ml (5-125); POTASSIUM 4.1 mmol/L (3.5-5.1); SGOT/AST 26 U/L (15-37); SGPT/ALT 13 U/L (13-61); SODIUM 135 mmol/L (136-145); TOT PROT 7.1 g/dl (6.4-8.2)
--- NOTE | 2020-01-27 09:26 | EKG ---
Test Reason : Blood Pressure : / mmHG Vent. Rate : 104 BPM Atrial Rate : 104 BPM P-R Int : 160 ms QRS Dur : 082 ms QT Int : 376 ms P-R-T Axes : 045 -28 056 degrees QTc Int : 494 ms SINUS TACHYCARDIA MINIMAL VOLTAGE CRITERIA FOR LVH, MAY BE NORMAL VARIANT BORDERLINE ECG WHEN COMPARED WITH ECG OF 06-DEC-2019 15:15, NO SIGNIFICANT CHANGE WAS FOUND Confirmed by Tati Farrell ([id number]) on 01/27/2020 9:25:30 AM Referred By: Confirmed By:Tati Farrell
[2020-01-27 11:55] LABS: URINE APPEARANCE CLEAR; URINE COLOR YELLOW
[2020-01-27 11:57] LABS: URINE BILIRUBIN NEGATIVE (NEGATIVE); URINE GLUCOSE (UA) 3+ (NEGATIVE); URINE KETONE NEGATIVE (NEGATIVE)
[2020-01-27 11:58] LABS: PH,URINE 6.5 (5.0-8.0)
[2020-01-27 11:59] LABS: URINE LEUK ESTERASE NEGATIVE (NEGATIVE); URINE NITRITE NEGATIVE (NEGATIVE); URINE PROTEIN 3+ (NEGATIVE); URINE UROBILINOGEN 0.2 mg/dL (0.2-1.0); URINE WBC 1.8 /hpf (0-5)
[2020-01-27 12:00] LABS: EPI CELLS 1.1 /HPF (0-5/HPF); URINE BACTERIA 9.1 /hpf (NEGATIVE)
--- NOTE | 2020-01-27 12:10 | HP ---
Admitting History and Physical - Primary Care Physician PCP: Rajan Slade - Admission History of Present Illness: HPI: 64yo F with PMH of HIV, CAD s/p 1 stent in 2017, HTN, HLD, DM, CHF, CKD presenting with chest pain. The pain is described as "sharp" and "pressure" located on the left side of her chest. Nonradiating without associated nausea, vomiting, or diaphoresis. Patient though the pain was "just gas" and took some baking soda which did not relieve her symptoms. The pain will last for about ten or fifteen minutes before going away on its own. Patient has never had pain like this before. Reports dyspnea on exertion: used to walk without difficulty but had to take a break about every twenty minutes yesterday. No recent travel - Past Medical History Cardiovascular: Yes: CAD (with stent), HTN, Hyperlipdemia Infectious Disease: Yes: HIV Endocrine: Yes: Diabetes Mellitus (on insulin) - Past Surgical History Past Surgical History: Yes: Appendectomy (complicated- per pt, with right sided oophorectomy and removal of fallopian tube) - Smoking History Smoking history: Never smoked Have you smoked in the past 12 months: No Aproximately how many cigarettes per day: 0 If you are a former smoker, when did you quit?: 0 - Alcohol/Substance Use Hx Alcohol Use: Yes (occa) History of Substance Use: reports: Cocaine, Heroin - Social History ADL: Independent History of Recent Travel: No Home Medications - Allergies Allergies/Adverse Reactions: Allergies Allergy/AdvReac Type Severity Reaction Status Date / Time amoxicillin Allergy Verified 01/27/20 10:33 metronidazole [From Flagyl] Allergy Verified 01/27/20 10:33 - Home Medications Home Medications: Ambulatory Orders Brimonidine Tartrate/Timolol [Combigan 0.2%-0.5% Eye Drops] 1 drop OU BID 11/27/19 Carvedilol [Coreg -] 3.125 mg PO BID 11/27/19 Clopidogrel Bisulfate [Clopidogrel] 75 mg PO DAILY 11/27/19 Dulaglutide [Trulicity] 1.5 mg SQ WEEKLY 11/27/19 Insulin Glargine,Hum.rec.anlog [Basaglar Kwikpen U-100] 50 unit SQ AM 11/27/19 Levothyroxine [Synthroid -] 50 mcg PO DAILY 11/27/19 Rosuvastatin [Crestor -] 20 mg PO HS 11/27/19 Travoprost [Travatan Z] 1 drop OU HS 11/27/19 Emtricitab/Rilpiviri/Tenof Ala [Odefsey Tablet] 1 each PO DAILY 12/05/19 Physical Examination Vital Signs: Vital Signs Temperature 97.8 F 01/27/20 06:36 Pulse Rate 110 H 01/27/20 06:36 Respiratory Rate 01/27/20 06:36 Blood Pressure 141/91 01/27/20 06:36 O2 Sat by Pulse Oximetry (%) 96 01/27/20 06:36 Constitutional: Yes: No Distress HENT: Yes: Atraumatic Neck: Yes: Supple Cardiovascular: Yes: Regular Rate and Rhythm Respiratory: Yes: CTA Bilaterally, Other (reproducible CP) Extremities: Yes: WNL Edema: No Neurological: Yes: Alert, Oriented Labs: CBC, BMP 01/27/20 08:10 01/27/20 08:10 Problem List - Problems (1) Chest pain Assessment/Plan: tele monitoring fu cardiac profile cardio consult Code(s): R07.9 - CHEST PAIN, UNSPECIFIED Qualifiers: Chest pain type: other chest pain Qualified Code(s): R07.89 - Other chest pain; R07.8 - Other chest pain Assessment/Plan Laboratory Tests 01/27/20 01/27/20 01/27/20 08:10 08:10 08:10 WBC 11.8 H RBC 4.47 Hgb 13.2 Hct 39.2 MCV 87.8 MCH 29.6 MCHC 33.7 RDW 14.3 Plt Count 240 MPV 8.4 Absolute Neuts (auto) 5.1 Neutrophils % 42.8 Lymphocytes % 50.0 H Monocytes % 5.2 Eosinophils % 1.6 Basophils % 0.4 Nucleated RBC % 0 PT with INR 11.80 INR 1.00 PTT (Actin FS) 29.8 Sodium 135 L Potassium 4.1 Chloride 101 Carbon Dioxide 28 Anion Gap 6 L BUN 29.9 H Creatinine 1.4 H Est GFR (CKD-EPI)AfAm 45.90 Est GFR (CKD-EPI)NonAf 39.61 Random Glucose 304 H Calcium 9.2 Total Bilirubin 0.2 AST 26 ALT 13 Alkaline Phosphatase 233 H Creatine Kinase 90 Troponin I < 0.02 B-Natriuretic Peptide 33.6 Total Protein 7.1 Albumin 2.8 L Urine Color Urine Appearance Urine pH Ur Specific [place] Urine Protein Urine Glucose (UA) Urine Ketones Urine Blood Urine Nitrite Urine Bilirubin Urine Urobilinogen Ur Leukocyte Esterase Urine WBC (Auto) Urine RBC (Auto) Urine Casts (Auto) U Epithel Cells (Auto) Urine Bacteria (Auto) 01/27/20 10:45 WBC RBC Hgb Hct MCV MCH MCHC RDW Plt Count MPV Absolute Neuts (auto) Neutrophils % Lymphocytes % Monocytes % Eosinophils % Basophils % Nucleated RBC % PT with INR INR PTT (Actin FS) Sodium Potassium Chloride Carbon Dioxide Anion Gap BUN Creatinine Est GFR (CKD-EPI)AfAm Est GFR (CKD-EPI)NonAf Random Glucose Calcium Total Bilirubin AST ALT Alkaline Phosphatase Creatine Kinase Troponin I B-Natriuretic Peptide Total Protein Albumin Urine Color Yellow Urine Appearance Clear Urine pH 6.5 Ur Specific [place] 1.016 Urine Protein 3+ H Urine Glucose (UA) 3+ H Urine Ketones Negative Urine Blood Negative Urine Nitrite Negative Urine Bilirubin Negative Urine Urobilinogen 0.2 Ur Leukocyte Esterase Negative Urine WBC (Auto) 1.8 Urine RBC (Auto) 4.0 Urine Casts (Auto) 0.00 U Epithel Cells (Auto) 1.1 Urine Bacteria (Auto) 9.1 Active Medications Generic Name Dose Route Start Last Admin Trade Name Freq PRN Reason Stop Dose Admin Carvedilol 3.125 mg 01/27/20 22:00 Coreg - PO BID [facility] Clopidogrel Bisulfate 75 mg 01/28/20 10:00 Plavix - PO DAILY [facility] Latanoprost 1 drop 01/27/20 22:00 Xalatan 0.005% Eye Drops - OU HS [facility]1983 Levothyroxine Sodium 50 mcg 01/28/20 07:00 Synthroid - PO 0700 [facility]1983 Non-Formulary Medication 1.5 mg 01/27/20 12:15 Dulaglutide [Trulicity] SQ WEEKLY [facility] Rosuvastatin Calcium 20 mg 01/27/20 22:00 Crestor - PO HS [facility]
[2020-01-27] MEDS ORDERED: PATIENT'S OWN MEDICATION (NON-FORMULARY) (Dulaglutide [Trulicity] 1.5 MG) SQ SCH (12:15)
--- NOTE | 2020-01-27 13:32 | CON.CARD ---
Consult Consult Specialty:: Cardiology Referred by:: Rajan Slade MD Reason for Consultation:: Chest pain, dyspnea - History of Present Illness Chief Complaint: Chest pain, dyspnea History of Present Illness: 62 yo F with h/o DM, HIV on HAART, HTN, HLD, hypothyroidism, peripheral neuropathy, CAD s/p PCI 04/2017 and MGUS presented with reproducible left sided pain exacerbated with palpation and deep inspiration and GANNON. In 2017 reported typical anginal symptoms after one of her friends . Stress test showed inferior wall ischemia. Underwent LHC 04/2017 that showed severe ostial RPDA stenosis and underwent REBEKA placement. EF was preserved and there was moderate LCx stenosis. She had a negative stress test in 07/2017 after presenting with Atypical and reproducible chest pain. - History Source History Provided By: Patient Limitations to Obtaining History: No Limitations - Past Medical History Cardio/Vascular: Yes: CAD (with stent), HTN, Hyperlipdemia Infectious Disease: Yes: HIV Endocrine: Yes: Diabetes Mellitus (on insulin) - Past Surgical History Past Surgical History: Yes: Appendectomy (complicated- per pt, with right sided oophorectomy and removal of fallopian tube), Stent - Alcohol/Substance Use Hx Alcohol Use: Yes (occa) History of Substance Use: reports: Cocaine, Heroin - Smoking History Smoking history: Never smoked Have you smoked in the past 12 months: No Aproximately how many cigarettes per day: 0 If you are a former smoker, when did you quit?: 0 - Social History ADL: Independent History of Recent Travel: No Home Medications - Allergies Allergies/Adverse Reactions: Allergies Allergy/AdvReac Type Severity Reaction Status Date / Time amoxicillin Allergy Verified 01/27/20 10:33 metronidazole [From Flagyl] Allergy Verified 01/27/20 10:33 - Home Medications Home Medications: Ambulatory Orders Brimonidine Tartrate/Timolol [Combigan 0.2%-0.5% Eye Drops] 1 drop OU BID 11/27/19 Carvedilol [Coreg -] 3.125 mg PO BID 11/27/19 Clopidogrel Bisulfate [Clopidogrel] 75 mg PO DAILY 11/27/19 Dulaglutide [Trulicity] 1.5 mg SQ WEEKLY 11/27/19 Insulin Glargine,Hum.rec.anlog [Calebaglquintin Muir U-100] 50 unit SQ AM 11/27/19 Levothyroxine [Synthroid -] 50 mcg PO DAILY 11/27/19 Rosuvastatin [Crestor -] 20 mg PO HS 11/27/19 Travoprost [Travatan Z] 1 drop OU HS 11/27/19 Emtricitab/Rilpiviri/Tenof Ala [Odefsey Tablet] 1 each PO DAILY 12/05/19 Review of Systems - Review of Systems Cardiovascular: reports: Chest Pain Respiratory: reports: SOB on Exertion Vital Signs: Vital Signs Temperature 97.8 F 01/27/20 06:36 Pulse Rate 91 H 01/27/20 12:00 Respiratory Rate 18 01/27/20 12:00 Blood Pressure 128/91 01/27/20 12:00 O2 Sat by Pulse Oximetry (%) 97 01/27/20 12:00 Constitutional: Yes: No Distress, Calm Neck: Yes: Supple Respiratory: Yes: Regular, Diminished, Other (Reproducible chest wall discomfort) Gastrointestinal: Yes: Normal Bowel Sounds, Soft, Abdomen, Obese Cardiovascular: Yes: Regular Rate and Rhythm JVD: No Carotid Bruit: No Heart Sounds: Yes: S1, S2 Murmur: Yes: Systolic Murmur, Grade 1 Edema: No - Other Data Labs, Other Data: CBC, BMP 01/27/20 08:10 01/27/20 08:10 INR, PTT INR 1.00 (0.83-1.09) 01/27/20 08:10 Troponin, BNP 01/27/20 08:10 Troponin I < 0.02 B-Natriuretic Peptide 33.6 Troponin, BNP 01/27/20 08:10 Troponin I < 0.02 B-Natriuretic Peptide 33.6 ST @ 104 min criteria LVH Ejection Fraction %: LVEF > or = 40 % Imaging - Results Chest X-ray: Report Reviewed (Bibasilar ATX) Problem List - Problems (1) Systolic dysfunction without heart failure Code(s): I51.89 - OTHER ILL-DEFINED HEART DISEASES (2) Chest pain Code(s): R07.9 - CHEST PAIN, UNSPECIFIED Qualifiers: Chest pain type: other chest pain Qualified Code(s): R07.89 - Other chest pain; R07.8 - Other chest pain (3) CAD (coronary artery disease) Code(s): I25.10 - ATHSCL HEART DISEASE OF [place] CORONARY ARTERY W/O ANG PCTRS Qualifiers: Coronary Disease-Associated Artery/Lesion type: [place] artery [place] vs. transplanted heart: [place] heart Associated angina: without angina Qualified Code(s): I25.10 - Atherosclerotic heart disease of [place] coronary artery w ithout angina pectoris (4) Hypothyroid Code(s): E03.9 - HYPOTHYROIDISM, UNSPECIFIED Qualifiers: Hypothyroidism type: unspecified Qualified Code(s): E03.9 - Hypothyroidism, unspecified (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 Code(s): E11.29 - TYPE 2 DIABETES MELLITUS W OTH DIABETIC KIDNEY COMPLICATION Qualifiers: Diabetes mellitus buttermaker helper insulin use: with group home use Chronic kidney disease stage: stage 3 (moderate) (6) HIV (human immunodeficiency virus infection) Code(s): Z21 - ASYMPTOMATIC HUMAN IMMUNODEFICIENCY VIRUS INFECTION STATUS (7) HLD (hyperlipidemia) Code(s): E78.5 - HYPERLIPIDEMIA, UNSPECIFIED Qualifiers: Hyperlipidemia type: pure hypercholesterolemia Qualified Code(s): E78.00 - Pure hypercholesterolemia, unspecified; E78.0 - Pure hypercholesterolemia (8) HTN (hypertension) Code(s): I10 - ESSENTIAL (PRIMARY) HYPERTENSION Qualifiers: Hypertension type: essential hypertension Qualified Code(s): I10 - Essential (primary) hypertension (9) CKD (chronic kidney disease) Code(s): N18.9 - CHRONIC KIDNEY DISEASE, UNSPECIFIED Qualifiers: Chronic kidney disease stage: stage 3 (moderate) Qualified Code(s): N18.3 - Chronic kidney disease, stage 3 (moderate) (10) S/P coronary artery stent placement Code(s): Z95.5 - PRESENCE OF CORONARY ANGIOPLASTY IMPLANT AND GRAFT Assessment/Plan 12/09/2019 Mild-mod decreased LVEF 40-45%, mild decreased RV fxn. no sig valve abnl 01/05/2016 P-Myoview, no ischemia, normal LVEF 1. Atypical reproducible and musculoskeletal chest wall pain 2. CAD s/p REBEKA 3. Mild-moderate LV systolic dysfunction, euvolemic, BNP low 4. HIV 5. Hyperlipidemia 6. HTN heart disease 7. CKD 8. Hypothyroidism 9. Type 2 DM 10. s/p right humerus repair P:1. Ruling out for MS 2. Analgesia as needed 3. Continue carvedilol 3.125 bid, Plavix 75 qd. Crestor 20 qd, add losartan 25 qd and uptitrate as tolerated once renal fxn stabilized 4. Patient sees Dr. Cherise Jimenez of [facility] as outpatient, f/u with her upon d/c 5. Thank you for consultative opportunity
[2020-01-27] MEDS: CARVEDILOL 3.125 MG TABLET (FP) PO SCH (21:26)
[2020-01-27] MEDS ORDERED: ROSUVASTATIN CA 20 MG TABLET (FP) PO SCH (22:00)
[2020-01-27] MEDS ORDERED: LATANOPROST 0.005% OPHTH SOLN 2.5ML BOTTLE OU SCH (22:00)
[2020-01-28 00:46] VITALS: BMI 33.6
[2020-01-28] MEDS ORDERED: LEVOTHYROXINE NA 50 MCG TABLET (FP) PO SCH (07:00)
[2020-01-28] MEDS ORDERED: EMTRICITAB/RILPIVIRI/TENOF ALA (ODEFSEY) TABLET PO SCH (10:00)
[2020-01-28] MEDS ORDERED: CLOPIDOGREL BISULFATE 75 MG TABLET (FP) PO SCH (10:00)
--- NOTE | 2020-01-28 10:39 | PN ---
Progress Note (short form) - Note Progress Note: Chief Complaint: Events noted, notes reviewed, denies any recurrent chest discomfort, denies any dyspnea History of Present Illness: Seen and examined on telemetry. Events noted, notes reviewed, denies any recurrent chest discomfort, denies any dyspnea Medications: Current Medications Carvedilol (Coreg -) 3.125 mg PO BID [facility] Last Admin: 01/27/20 21:26 Dose: 3.125 mg Documented by: Clopidogrel Bisulfate (Plavix -) 75 mg PO DAILY [facility] Latanoprost (Xalatan 0.005% Eye Drops -) 1 drop OU [facility] Last Admin: 01/27/20 23:06 Dose: 1 drop Documented by: Levothyroxine Sodium (Synthroid -) 50 mcg PO 0700 [facility] Last Admin: 01/28/20 06:13 Dose: 50 mcg Documented by: Non-Formulary Medication (Dulaglutide [Trulicity]) 1.5 mg SQ WEEKLY [facility] Rosuvastatin Calcium (Crestor -) 20 mg PO [facility] Last Admin: 01/27/20 21:26 Dose: 20 mg Documented by: Review of Systems Constitutional: denies: Chills or Fever Cardiovascular: as noted above Respiratory: denies: Cough Gastrointestinal: denies: Nausea, Vomiting, Diarrhea, Constipation or Abdominal Pain Genitourinary: denies: Dysuria Musculoskeletal: denies: Joint Pain Neurological: denies: Dizziness or Headache Vital Signs: Last Vital Signs Temp Pulse Resp BP Pulse Ox 97.5 F L 81 20 120/72 95 01/28/20 05:49 01/28/20 05:49 01/28/20 05:49 01/28/20 05:49 01/27/20 20:00 Intake & Output 01/25/20 01/26/20 01/27/20 01/28/20 22:59 23:59 23:59 23:59 Intake Total 400 120 Balance 400 120 Weight 227 lb 9.6 oz Constitutional: No Distress, Calm, Thin Respiratory: Diminished Breath Sounds at the Bases Cardiovascular: S1 S2 Regular Rate and Rhythm Gastrointestinal: Soft Benign Normal Bowel Sounds Ext: No Edema Labs: Troponin, BNP 01/27/20 01/28/20 21:30 06:00 Troponin I < 0.02 < 0.02 CBC, BMP 01/27/20 08:10 01/27/20 08:10 Assessment/Plan ASSESSMENT: 1. Chest pain syndrome- atypical for angina pectoris in a patient with known history of coronary artery disease post percutaneous core intervention/stenting angina pectoris/clinically stable 2. Systolic/diastolic left ventricular dysfunction with clinical class 0-I [place] Heart Association classification of ventricular failure, clinically compensated/euvolemic 3. Hypertensive cardiovascular disease 4. Diabetes mellitus 5. Hypercholesterolemia 6. Hypothyroidism 7. History of HIV 8. Chronic kidney disease 9. Obesity PLAN: 1. Continue Coreg and dose titration as needed and as tolerated 2. Ideally patient should be on ANDREIA inhibitor or angiotensin receptor felicita therapy unless they are absolutely contraindicated 3. Continue Crestor 4. Continue Plavix 5. Patient can be discharged home from the cardiovascular point of view and additional cardiovascular evaluation to be performed on an outpatient basis, patient expressed wishes to switch her care from [facility] to a local provider Idalia Jain M.D.
[2020-01-28] MEDS ORDERED: PT OWN MED DRAWER 7, Y5N ONE (10:44)
[2020-01-28] MEDS: CARVEDILOL 3.125 MG TABLET (FP) PO SCH (10:58)
--- NOTE | 2020-01-28 17:05 | DS ---
Physical Examination Vital Signs: Vital Signs Temperature 98.7 F 01/28/20 14:00 Pulse Rate 91 H 01/28/20 14:00 Respiratory Rate 18 01/28/20 14:00 Blood Pressure 129/71 01/28/20 14:00 O2 Sat by Pulse Oximetry (%) 95 01/27/20 20:00 Constitutional: Yes: No Distress HENT: Yes: Atraumatic Neck: Yes: Supple Cardiovascular: Yes: Regular Rate and Rhythm Respiratory: Yes: CTA Bilaterally Gastrointestinal: Yes: Normal Bowel Sounds Extremities: Yes: WNL Neurological: Yes: Alert, Oriented Labs: CBC, BMP 01/27/20 08:10 01/27/20 08:10 Discharge Summary Problems reviewed: Yes Reason For Visit: CHEST PAIN Current Active Problems CKD (chronic kidney disease) (Acute) Chest pain (Acute) S/P coronary artery stent placement (Acute) Systolic dysfunction without heart failure (Acute) Condition: Guarded - Instructions Diet, Activity, Other Instructions: see you pmd/cardio in 1 week Referrals: Viraj Geronimo MD [Staff Physician] - - Home Medications Comprehensive Discharge Medication List: Ambulatory Orders Brimonidine Tartrate/Timolol [Combigan 0.2%-0.5% Eye Drops] 1 drop OU BID 11/27/19 Carvedilol [Coreg -] 3.125 mg PO BID 11/27/19 Clopidogrel Bisulfate [Clopidogrel] 75 mg PO DAILY 11/27/19 Dulaglutide [Trulicity] 1.5 mg SQ WEEKLY 11/27/19 Insulin Glargine,Hum.rec.anlog [Basaglar Kwikpen U-100] 50 unit SQ AM 11/27/19 Levothyroxine [Synthroid -] 50 mcg PO DAILY 11/27/19 Rosuvastatin [Crestor -] 20 mg PO HS 11/27/19 Travoprost [Travatan Z] 1 drop OU HS 11/27/19 Emtricitab/Rilpiviri/Tenof Ala [Odefsey Tablet] 1 each PO DAILY 12/05/19 Aspirin Coated [Ecotrin -] 81 mg PO DAILY 01/27/20 Furosemide [Lasix] 20 mg PO DAILY 01/27/20 Hydroxyzine HCl 50 mg PO HS 01/27/20 Multivitamins [Multivit ([facility] Formulary)] 1 tab PO DAILY 01/27/20 1. Chest pain syndrome- atypical for angina pectoris in a patient with known history of coronary artery disease post percutaneous core intervention/stenting angina pectoris/clinically stable 2. Systolic/diastolic left ventricular dysfunction with clinical class 0-I [place] Heart Association classification of ventricular failure, clinically compensated/euvolemic 3. Hypertensive cardiovascular disease 4. Diabetes mellitus 5. Hypercholesterolemia 6. Hypothyroidism 7. History of HIV 8. Chronic kidney disease 9. Obesity
[2020-01-28 19:11] VITALS: BP 135/80; PULSE 83; TEMP 98.1
== END 2020-01-28 20:44 | disposition home or self-care (01) | DRG 313 ==
LOC: JER 06:12 → JERBED 09:32 → OBSVTOIN 12:10 → J4S 20:12
PROVIDERS: ADMIT Internal Medicine; ATTEND Internal Medicine
DX: R07.89 Other chest pain (principal); I13.0 Hypertensive heart and chronic kidney disease with heart failure and stage 1 through stage 4 chronic kidney disease, or unspecified chronic kidney disease; I25.10 Atherosclerotic heart disease of native coronary artery without angina pectoris; E11.22 Type 2 diabetes mellitus with diabetic chronic kidney disease; I50.9 Heart failure, unspecified; Z79.4 Long term (current) use of insulin; E03.9 Hypothyroidism, unspecified; E11.40 Type 2 diabetes mellitus with diabetic neuropathy, unspecified; Z21 Asymptomatic human immunodeficiency virus [HIV] infection status; E78.5 Hyperlipidemia, unspecified; N18.3 Chronic kidney disease, stage 3 (moderate); Z95.5 Presence of coronary angioplasty implant and graft; E66.9 Obesity, unspecified; Z68.33 Body mass index [BMI] 33.0-33.9, adult
CPT/HCPCS: 36415; 71045-TC-FY; 80053; 81003; 82550; 83880; 84484; 85025; 85610; 85730; 87086; 93005; 93010; 99285-25; G0378

== ENCOUNTER 2020-05-22 09:11 | Emergency (ER) | payer OTHER ==
--- NOTE | 2020-05-22 09:15 | PDOC ---
Rapid Medical Evaluation Time Seen by Provider: 05/22/20 09:12 Medical Evaluation: Allergies Allergy/AdvReac Type Severity Reaction Status Date / Time amoxicillin Allergy Verified 01/27/20 10:33 metronidazole [From Flagyl] Allergy Verified 01/27/20 10:33 05/22/20 09:12 I performed a brief in-person evaluation of this patient. Pt is a 64 y/o female with h/o HTN, DM, HIV (unknown CD4, undetectable viral load) who presents with a vaginal abscess for 2 weeks. She denies any fevers or chills. Denies any drainage from the abscess Pertinent physical exam findings: nontoxic appearing, speaking in full and complete sentences, no respiratory distress. [employer] exam deferred to ED provider. I have ordered the following: none Patient to proceed to ED for further evaluation. Discharge Disposition - Diagnosis Abscess - Referrals - Patient Instructions - Post Discharge Activity
[2020-05-22 09:20] VITALS: TEMP 98.5; BMI 35.1
--- NOTE | 2020-05-22 09:56 | PDOC ---
History of Present Illness - General Chief Complaint: Vaginal Sxs Stated Complaint: VAGINAL SXS Time Seen by Provider: 05/22/20 09:12 - History of Present Illness Initial Comments: 05/22/20 09:55 HPI: 64 y/o with hx of CKD, CAD s/p stent, HTN, IDDM, HLD presenting with vaginal swelling and pain x2-3 weeks worsening since last night. Pain is difficult to describe per the patient but reports 10/10 pain. Pain is non radiating. She also reports swelling. She denies any fever, chills, vag bleed, vag discharge, wound discharge, drainage. PMHx: as noted above ROS: as noted SHx: Denies tobacco use; occ alcohol use; no rec drugs Allergies: NKDA ROS: GENERAL/CONSTITUTIONAL: No fever or chills. No weakness. HEAD, EYES, EARS, NOSE AND THROAT: No change in vision. No ear pain or discharge. No sore throat. CARDIOVASCULAR: No chest pain or shortness of breath RESPIRATORY: No cough, wheezing, or hemoptysis. GASTROINTESTINAL: No nausea, vomiting, diarrhea or constipation. GENITOURINARY: No dysuria, frequency, or change in urination. MUSCULOSKELETAL: No joint or muscle swelling or pain. No neck or back pain. SKIN: No rash NEUROLOGIC: No headache, vertigo, loss of consciousness, or change in strength/sensation. ENDOCRINE: No increased thirst. No abnormal weight change HEMATOLOGIC/LYMPHATIC: No anemia, easy bleeding, or history of blood clots. ALLERGIC/IMMUNOLOGIC: No hives or skin allergy. PE: GENERAL: Awake, alert, and fully oriented, no acute distress HEAD: No signs of trauma, normocephalic, atraumatic EYES: EOMI, sclera anicteric, conjunctiva clear ENT: Auricles normal inspection, hearing grossly normal, nares patent, oropharynx clear without exudates. Moist mucosa NECK: Normal ROM, no lymphadenopathy LUNGS: No increased work of breathing, symmetrical chest rise HEART: Regular rate, regular rhythm ABDOMEN: Soft, nondistended, nontender. No guarding, no rebound. No masses. No CVAT : external gentialia with white plaque like lesion on right labial minora 1cm in diameter, also appears ulcerated, ttp, no lymphadenopathy MUSCULOSKELETAL: FROM NEUROLOGICAL: Cranial nerves II through XII grossly intact. Normal speech, normal gait, no focal sensorimotor deficits SKIN: Warm, Dry, normal turgor, no rashes or lesions noted Past History - Medical History Allergies/Adverse Reactions: Allergies Allergy/AdvReac Type Severity Reaction Status Date / Time amoxicillin Allergy Verified 05/22/20 09:14 metronidazole [From Flagyl] Allergy Verified 05/22/20 09:14 Home Medications: Ambulatory Orders Brimonidine Tartrate/Timolol [Combigan 0.2%-0.5% Eye Drops] 1 drop OU BID 11/27/19 Carvedilol [Coreg -] 3.125 mg PO BID 11/27/19 Clopidogrel Bisulfate [Clopidogrel] 75 mg PO DAILY 11/27/19 Dulaglutide [Trulicity] 1.5 mg SQ WEEKLY MDD on 11/27/19 Insulin Glargine,Hum.rec.anlog [Basaglar Kwikpen U-100] 50 unit SQ AM 11/27/19 Levothyroxine [Synthroid -] 50 mcg PO DAILY 11/27/19 Rosuvastatin [Crestor -] 20 mg PO HS 11/27/19 Travoprost [Travatan Z] 1 drop OU HS 11/27/19 Emtricitab/Rilpiviri/Tenof Ala [Odefsey Tablet] 1 each PO DAILY 12/05/19 Aspirin Coated [Ecotrin -] 81 mg PO DAILY 01/27/20 Furosemide [Lasix] 20 mg PO DAILY 01/27/20 Hydroxyzine HCl 50 mg PO HS 01/27/20 Multivitamins [Multivit ([facility] Formulary)] 1 tab PO DAILY 01/27/20 Lidocaine 2% Jelly [Xylocaine 2% Jelly] 1 applic TP ONCE #1 tube 05/22/20 Anemia: No Asthma: No Cancer: No Cardiac Disorders: Yes CVA: No COPD: No CHF: No Dementia: No Diabetes: Yes GI Disorders: No Disorders: No HTN: Yes Hypercholesterolemia: Yes Liver Disease: No Seizures: No Thyroid Disease: Yes - Surgical History Abdominal Surgery: Yes Appendectomy: Yes Cardiac Surgery: Yes (stent) Cholecystectomy: No Lung Surgery: No Neurologic Surgery: No Orthopedic Surgery: No - Immunization History Td Vaccination: Yes TDAP Vaccination: Yes Immunization Up to Date: Yes - Psycho-Social/Smoking History Smoking Status: No Smoking History: Never smoked Have you smoked in the past 12 months: No Number of Cigarettes Smoked Daily: 0 If you are a former smoker, when did you quit?: 0 - Substance Abuse Hx (Audit-C & DAST Scrn) How often the patient has a drink containing alcohol: Never Score: In Men: 4 or > Positive; In Women: 3 or > Positive: 0 Screen Result (Pos requires Nsg. Audit-10AR): Negative In the last yr the pt used illegal drug/Rx for NonMed reason: No Score: Yes response is considered Positive: 0 Screen Result (Positive result requires Nsg. DAST-10): Negative *Physical Exam - Vital Signs Last Vital Signs Temp Pulse Resp BP Pulse Ox 98.5 F 97 H 16 136/78 99 05/22/20 09:15 05/22/20 09:15 05/22/20 09:15 05/22/20 09:15 05/22/20 09:15 ED Treatment Course - LABORATORY CBC & Chemistry Diagram: 05/22/20 10:30 05/22/20 10:24 - ADDITIONAL ORDERS Additional order review: Laboratory Results 05/22/20 09:47 POC Glucometer > 600 05/22/20 09:47 POC Glucometer > 600 Medical Decision Making - Medical Decision Making 05/22/20 15:34 64 y/o with hx of CKD, CAD s/p stent, HTN, IDDM, HLD presenting with vaginal swelling and pain x2-3 weeks worsening since last night. VSS, AF. PE with right labial minora 1cm white plaque raised lesion. -BGM 05/22/20 15:34 glu>600 will send cbc, cmp, ua, ekg ivf 05/22/20 15:35 Glu 737 discussed with ID briefly, and recommending Echocardiography Technologist followup for wound will give 10u for continued elevated gluc 05/22/20 15:40 patient admits to not taking morning meds and drinking alcohol heavily yesterday will give additional 6u insulin and DC if improved 05/22/20 15:41 insulin <500 will give Echocardiography Technologist followup and pcp followup script for lidocaine jelly sent all questions asnwered Discharge - Discharge Information Problems reviewed: Yes Clinical Impression/Diagnosis: Vaginal lesion, Hyperglycemia Condition: Stable Disposition: HOME - Additional Discharge Information Prescriptions: Lidocaine 2% Jelly [Xylocaine 2% Jelly] 1 applic TP ONCE #1 tube - Follow up/Referral Referrals: Ruma Marin MD [Staff Physician] - - Patient Discharge Instructions Patient Printed Discharge Instructions: DI for Hyperglycemia -- Adult, DI for Genital Lesions Additional Instructions: Additional Instructions: Please return to the emergency department with any new or worsening symptoms or concerns. Please follow up with the referral for the Chronic Care Nurse Dr Marin that we have attached. Please followup as soon as possible for further evaluation of the lesion and pain You may apply topical lidocaine cream on the lesion for pain control You may also take tylenol 650mg every 6-8 hours as needed for pain control - Post Discharge Activity
[2020-05-22] MEDS ORDERED: SODIUM CHLORIDE 1,000 ML IV STA (10:19)
--- NOTE | 2020-05-22 10:28 | PDOC ---
Documentation entered by Coretta Katz SCRIBE, acting as scribe for Malgorzata Berry MD. Malgorzata Berry MD: This documentation has been prepared by the Gianna ivory Xhesika, SCRIBE, under my direction and personally reviewed by me in its entirety. I confirm that the documentation accurately reflects all work, treatment, procedures, and medical decision making performed by me. Attending Attestation - Resident Resident Name: Lety Jiménez - ED Attending Attestation I have performed the following: I have examined & evaluated the patient, The case was reviewed & discussed with the resident, I agree w/resident's findings & plan, Exceptions are as noted - HPI HPI: 05/22/20 09:35 Pt is a 64 y/o female with a PMH of HTN, DM, HIV (unknown CD4, undetectable viral load) who presents to the ED for labia majora lesion x2 weeks. Pt states the pain is worse when urinating and wiping. Pt denies any drainage or discharge. The patient denies fever, chills, cough, nausea, vomiting, diarrhea and con stipation. Denies dysuria, frequency, urgency and hematuria. Allergies: Amoxicillin, Metronidazole - Physicial Exam PE: GENERAL: Awake, alert, and fully oriented, in no acute distress HEAD: No signs of trauma EYES: PERRLA, EOMI, sclera anicteric, conjunctiva clear ENT: Auricles normal inspection, hearing grossly normal, nares patent, oropharynx clear without exudates. Moist mucosa NECK: Normal ROM, supple, no lymphadenopathy, JVD, or masses LUNGS: Breath sounds equal, clear to auscultation bilaterally. No wheezes, and no crackles HEART: Regular rate and rhythm, normal S1 and S2, no murmurs, rubs or gallops ABDOMEN: Soft, nontender, normoactive bowel sounds. No guarding, no rebound. No masses EXTREMITIES: Normal range of motion, no edema. No clubbing or cyanosis. No cords, erythema, or tenderness NEUROLOGICAL: Cranial nerves II through XII grossly intact. Normal speech, normal gait. Motor and sensation intact SKIN: Warm, dry, normal turgor, no rashes or lesions noted. : ~1cm raised tender lesion to the R labia majora. Nonindurated, nonerythematous, nonfluctuant. - Medical Decision Making Pt found to have severe hyperglycemia, responding to insulin in ED. Normal anion gap. Vaginal lesion is unclear etiology, will need paraprofessional aide teacher referral as an outpatient for poss biopsy to r/o malignancy. Discharge - Discharge Information Problems reviewed: Yes Clinical Impression/Diagnosis: Vaginal lesion, Hyperglycemia - Follow up/Referral - Patient Discharge Instructions - Post Discharge Activity
[2020-05-22 10:55] LABS: BASO % 0.6 % (0-2.0); EOS % 1.9 % (0-4.5); HEMATOCRIT 39.1 % (32.4-45.2); HEMOGLOBIN 12.8 GM/dL (10.7-15.3); LYMPH % 51.2 % (8-40); MCH 28.4 pg (25.7-33.7); MCHC 32.7 g/dl (32.0-36.0); MEAN CELL VOLUME 87.1 fl (80-96); MEAN PLT VOLUME 9.1 fl (7.5-11.1); MONO % 4.2 % (3.8-10.2); NEUT % 42.1 % (42.8-82.8); PLATELET COUNT 249 K/MM3 (134-434); RBC 4.49 M/mm3 (3.60-5.2); WHITE BLOOD COUNT 9.1 K/mm3 (4.0-10.0)
[2020-05-22 10:56] LABS: EPI CELLS 7 /uL (0-25.1); HYALINE CASTS 1 /uL (0-3.1); URINE APPEARANCE CLEAR; URINE BACTERIA 128 /uL (0-1359); URINE BILIRUBIN NEGATIVE (NEGATIVE); URINE COLOR YELLOW; URINE GLUCOSE (UA) 3+ (NEGATIVE); URINE KETONE NEGATIVE (NEGATIVE); URINE LEUK ESTERASE NEGATIVE (NEGATIVE); URINE NITRITE NEGATIVE (NEGATIVE); URINE PROTEIN 2+ (NEGATIVE); URINE UROBILINOGEN 0.2 mg/dL (0.2-1.0); URINE WBC 12 /uL (0-25.8)
[2020-05-22 11:04] LABS: URINE RBC 18.1 /uL (0-23.9)
[2020-05-22 11:26] LABS: ALBUMIN 3.1 g/dl (3.4-5.0); BILIRUBIN,TOTAL 0.3 mg/dL (0.2-1); BLOOD UREA NITROGEN 42.2 mg/dL (7-18); CALCIUM 9.1 mg/dL (8.5-10.1); POTASSIUM 4.6 mmol/L (3.5-5.1); TOT PROT 7.3 g/dl (6.4-8.2)
[2020-05-22] MEDS ORDERED: INSULIN REGULAR HUMAN 100 UNITS/ML *VIAL SQ ONE ×2 (12:18→13:51)
[2020-05-22] MEDS ORDERED: INSULIN REGULAR HUMAN 100 UNITS/ML *VIAL IVPUSH ONE (13:35)
[2020-05-22 15:29] VITALS: BP 137/72; PULSE 84
== END 2020-05-22 15:29 | disposition home or self-care (01) ==
LOC: JER 09:11
PROC: 3E0337Z Introduction of Electrolytic and Water Balance Substance into Peripheral Vein, Percutaneous Approach (ICD-10-PCS; principal; 2020-05-22)
PROC: 3E023GC Introduction of Other Therapeutic Substance into Muscle, Percutaneous Approach (ICD-10-PCS; principal; 2020-05-22)
DX: N89.8 Other specified noninflammatory disorders of vagina (principal); E11.65 Type 2 diabetes mellitus with hyperglycemia
CPT/HCPCS: 36415; 80053; 81003; 82962; 85025; 99284-25

== ENCOUNTER 2020-05-22 19:56 | Emergency (ER) | payer OTHER ==
--- NOTE | 2020-05-22 20:07 | PDOC ---
Rapid Medical Evaluation Time Seen by Provider: 05/22/20 20:04 Medical Evaluation: Allergies Allergy/AdvReac Type Severity Reaction Status Date / Time amoxicillin Allergy Verified 05/22/20 09:14 metronidazole [From Flagyl] Allergy Verified 05/22/20 09:14 05/22/20 20:06 I performed a brief in-person evaluation of this patient. Pt is a 64 y/o female seen in the ED earlier today and called to return to the ED because her sugars were too high. She has has h/o HIV, HTN, HLD, HIV. Pertinent physical exam findings: speaking in full sentences, NAD, nontoxic I have ordered the following: deferred to ED provider caring for the patient Patient to proceed to ED for further evaluation. Discharge Disposition - Diagnosis Hyperglycemia - Referrals - Patient Instructions - Post Discharge Activity
[2020-05-22 20:09] VITALS: BMI 34.8
--- NOTE | 2020-05-22 21:35 | PDOC ---
History of Present Illness - General Chief Complaint: Blood Sugar Problem Stated Complaint: FOLLOW UP DIABETES Time Seen by Provider: 05/22/20 20:04 History Source: Patient, Old Records Exam Limitations: No Limitations - History of Present Illness Initial Comments: 05/22/20 21:35 Saniya Gold is a 64F with PMH IDDM, HTN, HIV (undetectable), discharged earlier today and now presenting back to ED for hyperglycemia. 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 Post-insulin labs showed hyperglycemia to ~700, called to come back to ED for re-evaluation. Patient denies any chest pain, SOB, abd pain, urinary sx, N/V/C/D, IRVING, vision changes, dizziness. Otherwise feels completely normal. Ate breakfast this AM before ED visit and ate a sandwich in ED. Has not taken any home insulin today, only got insulin in ED, has not eaten since early afternoon. Home glucose measurements 150-300 pre-prandial, takes weekly insuling with pre-prandial short acting doses. Past History - Medical History Allergies/Adverse Reactions: Allergies Allergy/AdvReac Type Severity Reaction Status Date / Time amoxicillin Allergy Verified 05/22/20 20:09 metronidazole [From Flagyl] Allergy Verified 05/22/20 20:09 Home Medications: Ambulatory Orders Brimonidine Tartrate/Timolol [Combigan 0.2%-0.5% Eye Drops] 1 drop OU BID 11/27/19 Carvedilol [Coreg -] 3.125 mg PO BID 11/27/19 Clopidogrel Bisulfate [Clopidogrel] 75 mg PO DAILY 11/27/19 Dulaglutide [Trulicity] 1.5 mg SQ WEEKLY MDD on 11/27/19 Insulin Glargine,Hum.rec.anlog [Basaglar Kwikpen U-100] 50 unit SQ AM 11/27/19 Levothyroxine [Synthroid -] 50 mcg PO DAILY 11/27/19 Rosuvastatin [Crestor -] 20 mg PO HS 11/27/19 Travoprost [Travatan Z] 1 drop OU HS 11/27/19 Emtricitab/Rilpiviri/Tenof Ala [Odefsey Tablet] 1 each PO DAILY 12/05/19 Aspirin Coated [Ecotrin -] 81 mg PO DAILY 01/27/20 Furosemide [Lasix] 20 mg PO DAILY 01/27/20 Hydroxyzine HCl 50 mg PO HS 01/27/20 Multivitamins [Multivit ([facility] Formulary)] 1 tab PO DAILY 01/27/20 Lidocaine 2% Jelly [Xylocaine 2% Jelly] 1 applic TP ONCE #1 tube 05/22/20 Anemia: No Asthma: No Cancer: No Cardiac Disorders: Yes CVA: No COPD: No CHF: No Dementia: No Diabetes: Yes GI Disorders: No Disorders: No HTN: Yes Hypercholesterolemia: Yes Liver Disease: No Seizures: No Thyroid Disease: Yes - Surgical History Abdominal Surgery: Yes Appendectomy: Yes Cardiac Surgery: Yes (stent) Cholecystectomy: No Lung Surgery: No Neurologic Surgery: No Orthopedic Surgery: No - Immunization History Td Vaccination: Yes TDAP Vaccination: Yes Immunization Up to Date: Yes - Psycho-Social/Smoking History Smoking Status: No Smoking History: Never smoked Have you smoked in the past 12 months: No Number of Cigarettes Smoked Daily: 0 If you are a former smoker, when did you quit?: 0 - Substance Abuse Hx (Audit-C & DAST Scrn) How often the patient has a drink containing alcohol: Never Score: In Men: 4 or > Positive; In Women: 3 or > Positive: 0 Screen Result (Pos requires Nsg. Audit-10AR): Negative Review of Systems - Review of Systems Able to Perform ROS?: Yes Constitutional: No: Symptoms Reported HEENTM: No: Symptoms Reported Respiratory: No: Symptoms reported Cardiac (ROS): No: Symptoms Reported ABD/GI: No: Symptoms Reported : No: Symptoms Reported Musculoskeletal: No: Symptoms Reported Integumentary: No: Symptoms Reported Neurological: No: Symptoms reported Endocrine: No: Symptoms Reported Hematologic/Lymphatic: No: Symptoms Reported All Other Systems: Reviewed and Negative *Physical Exam - Vital Signs Last Vital Signs Temp Pulse Resp BP Pulse Ox 98.5 F 105 H 18 113/78 97 05/22/20 20:05 05/22/20 20:05 05/22/20 20:05 05/22/20 20:05 05/22/20 20:05 - Physical Exam General Appearance: Yes: Nourished, Appropriately Dressed, Obese, Other (appears angry but is ambulatory, in NAD, and fluently articulating her thoughts to ED staff). No: Apparent Distress HEENT: positive: EOMI, SUGEY, Normal Voice, Symmetrical, Hearing Grossly Normal, Other. negative: Scleral Icterus (R), Scleral Icterus (L), Pharyngeal Erythema, Tonsillar Exudate, Tonsillar Erythema, Nasal Congestion Neck: positive: Supple. negative: Tender, Rigid, Lymphadenopathy (R), Lymphadenopathy (L) Respiratory/Chest: positive: Lungs Clear, Normal Breath Sounds. negative: Chest Tender, Respiratory Distress, Accessory Muscle Use, Crackles, Rales, Rhonchi, Stridor Cardiovascular: positive: Regular Rhythm, Regular Rate Gastrointestinal/Abdominal: positive: Normal Bowel Sounds, Flat, Soft. negative: Tender, Organomegaly, Pulsatile Mass, Guarding, Rebound Musculoskeletal: positive: Normal Inspection. negative: CVA Tenderness, Decreased Range of Motion Extremity: positive: Normal Capillary Refill, Normal Inspection, Normal Range of Motion, Pelvis Stable. negative: Tender Integumentary: positive: Normal Color, Dry, Warm Neurologic: positive: Fully Oriented, Alert, Normal Mood/Affect, Normal Response , Motor Strength 5/5, Other (gait intact, completely alert and oriented) ED Treatment Course - ADDITIONAL ORDERS Additional order review: Laboratory Results 05/22/20 21:23 POC Glucometer 188 05/22/20 21:23 POC Glucometer 188 Medical Decision Making - Medical Decision Making 05/22/20 21:30 Patient initially presented today for vaginal complaint, discharged home, found to have glucose 700, called back for repeat evaluation. Patient is A/O x 3 and in NAD, VSS, normal PE. BGM on arrival 188, well within normal limits of patient's expected fasting glucose range, no signs of DKA on prior labs, no complaints at this time. No emergent disease process evident, patient stable for discharge home and PMD f/u to improvement of glucose management at home. Discharge - Discharge Information Problems reviewed: Yes Clinical Impression/Diagnosis: Hyperglycemia Condition: Improved Disposition: HOME - Follow up/Referral - Patient Discharge Instructions Patient Printed Discharge Instructions: DI for Hyperglycemia -- Adult Additional Instructions: Today you were evaluated your high blood sugar. Your sugar here was 188 and you have no symptoms. Please take your insulin as prescribed and see your regular doctor for follow-up in the next week. If your sugar is high again, you have nausea, vomiting, abdominal pain, or any other new or concerning symptoms, please return to the emergency room. - Post Discharge Activity
[2020-05-23 00:24] VITALS: BP 100/64; PULSE 103; TEMP 97.6
--- NOTE | 2020-06-03 11:01 | PDOC ---
Documentation entered by Deepti Vargas SCRIBE, acting as scribe for Rc Solano MD. Rc Solano MD: This documentation has been prepared by the Alicia ivory Brenda, SCRIBE, under my direction and personally reviewed by me in its entirety. I confirm that the documentation accurately reflects all work, treatment, procedures, and medical decision making performed by me. Attending Attestation - Resident Resident Name: RadhaValentino - ED Attending Attestation I have performed the following: I have examined & evaluated the patient, The case was reviewed & discussed with the resident, I agree w/resident's findings & plan, Exceptions are as noted - HPI HPI: 05/22/20 21:34 The patient is a 64 year old female with a significant PMH of DM who presents to the ED for evaluation of high blood sugar. The patient was here earlier todat at 9:00am for high blood sugar. She was given insulin and ate while in the ED and was sent home with precautions to return for blood sugar over 700. As per patient, her blood sugar was high while at home, prompting her ot return to the ED. Patient notes she did not use insulin all day an dhas been asymptomatic. Blood sugar while in the ED was 188. Allergies: amoxicillin, metronidazole - Physicial Exam PE: GENERAL: The patient is awake, alert, and fully oriented, Nontoxic - in no acute distress. ENT: Normal voice, Moist mucous membranes. LUNGS: Breath sounds equal, clear to auscultation bilaterally. No wheezes, no rhonchi, no rales. HEART: Regular rate and rhythm, normal S1 and S2 without murmur, rub or gallop. ABDOMEN: Soft, nontender, No guarding, no rebound. No CVA tenderness - Medical Decision Making pt feeling well and asymptomatic bgm currently reasonable and improved will dc the pt with pmd fu return precautions were discussed Discharge - Discharge Information Problems reviewed: Yes Clinical Impression/Diagnosis: Hyperglycemia Condition: Improved Disposition: HOME - Follow up/Referral - Patient Discharge Instructions Patient Printed Discharge Instructions: DI for Hyperglycemia -- Adult Additional Instructions: Today you were evaluated your high blood sugar. Your sugar here was 188 and you have no symptoms. Please take your insulin as prescribed and see your regular doctor for follow-up in the next week. If your sugar is high again, you have nausea, vomiting, abdominal pain, or any other new or concerning symptoms, please return to the emergency room. - Post Discharge Activity
== END 2020-05-22 21:55 | disposition home or self-care (01) ==
LOC: JER 19:56
DX: E11.65 Type 2 diabetes mellitus with hyperglycemia (principal)
CPT/HCPCS: 82962; 99282-25

== ENCOUNTER 2020-07-08 14:23 | Inpatient (IN) | payer OTHER ==
[2020-07-08] MEDS ORDERED: SODIUM CHLORIDE 0.9% 500 ML INFUS.BAG IV ONE ×2 (15:29→16:36)
--- NOTE | 2020-07-08 15:42 | PDOC ---
History of Present Illness - General Chief Complaint: Abscess Boil Stated Complaint: WOUND Time Seen by Provider: 07/08/20 14:42 History Source: Patient Exam Limitations: No Limitations - History of Present Illness Initial Comments: 07/08/20 15:32 64-year-old female with history of diabetes on insulin, last hgA1C - 12, hypertension, HIV on [place] reports undetectable viral load presents complaining of pain and swelling to left buttock for 2.5 weeks. [place] drainage from the area 3 days ago. denies fever, chills, abdominal pain, nausea, vomiting, rectal pain, urinary complaints or any other symptoms. Patient was evaluated today at an outpatient clinic, was referred to the ED for I&D and possible admission for IV antibiotics. ROS: GENERAL/CONSTITUTIONAL: No fever, chills, weakness, dizziness HEAD, EYES, EARS, NOSE AND THROAT: No changes in vision, No ear pain or dischar ge, No sore throat CARDIOVASCULAR: No chest pain RESPIRATORY: No shortness of breath or cough GASTROINTESTINAL: Pain and drainage from left buttock, denies nausea, vomiting, diarrhea or constipation GENITOURINARY: No dysuria MUSCULOSKELETAL: No neck or back pain SKIN: No rash NEUROLOGIC: No headache, vertigo, loss of consciousness, or loss of sensation PE: GENERAL: well-appearing, NAD HEAD: NCAT EYES: Pupils equal, round and reactive to light, sclera anicteric, conjunctiva clear ENT: pharynx: no erythema, no exudate, uvula midline NECK: supple CHEST: nontender RESP: clear, no w/r/r CARDIO: rrr, no m/g/r ABD: +BS, soft, nontender, non distended BACK: no midline spinal ttp, no CVAT EXTREMITIES: Normal range of motion, no edema NEUROLOGICAL: Normal speech, normal gait SKIN: Approximately 4 cm x 3.5 cm indurated area to left buttock with fluctuant center, minimal drainage noted, minimal surrounding warmth, no streaking noted Is this a multiple visit Asthma Patient?: No Past History - Medical History Allergies/Adverse Reactions: Allergies Allergy/AdvReac Type Severity Reaction Status Date / Time amoxicillin Allergy Verified 07/08/20 16:36 metronidazole [From Flagyl] Allergy Verified 07/08/20 16:36 Home Medications: Ambulatory Orders Brimonidine Tartrate/Timolol [Combigan 0.2%-0.5% Eye Drops] 1 drop OU BID 11/27/19 Carvedilol [Coreg -] 3.125 mg PO BID 11/27/19 Clopidogrel Bisulfate [Clopidogrel] 75 mg PO DAILY 11/27/19 Dulaglutide [Trulicity] 1.5 mg SQ WEEKLY MDD on 11/27/19 Insulin Glargine,Hum.rec.anlog [Basaglar Kwikpen U-100] 65 unit SQ AM 11/27/19 Levothyroxine [Synthroid -] 50 mcg PO DAILY 11/27/19 Rosuvastatin [Crestor -] 20 mg PO HS 11/27/19 Travoprost [Travatan Z] 1 drop OU HS 11/27/19 Emtricitab/Rilpiviri/Tenof Ala [Odefsey Tablet] 1 each PO DAILY 12/05/19 Aspirin Coated [Ecotrin -] 81 mg PO DAILY 01/27/20 Furosemide [Lasix] 20 mg PO DAILY 01/27/20 Hydroxyzine HCl 50 mg PO HS 01/27/20 Multivitamins [Multivit ([facility] Formulary)] 1 tab PO DAILY 01/27/20 Anemia: No Asthma: No Cancer: No Cardiac Disorders: Yes CVA: No COPD: No CHF: No Dementia: No Diabetes: Yes GI Disorders: No Disorders: No HTN: Yes Hypercholesterolemia: Yes Liver Disease: No Seizures: No Thyroid Disease: Yes - Surgical History Abdominal Surgery: Yes Appendectomy: Yes Cardiac Surgery: Yes (stent) Cholecystectomy: No Lung Surgery: No Neurologic Surgery: No Orthopedic Surgery: No - Immunization History Td Vaccination: Yes TDAP Vaccination: Yes Immunization Up to Date: Yes - Psycho-Social/Smoking History Smoking Status: No Smoking History: Never smoked Have you smoked in the past 12 months: No Number of Cigarettes Smoked Daily: 0 If you are a former smoker, when did you quit?: 0 - Substance Abuse Hx (Audit-C & DAST Scrn) How often the patient has a drink containing alcohol: Never Score: In Men: 4 or > Positive; In Women: 3 or > Positive: 0 Screen Result (Pos requires Nsg. Audit-10AR): Negative In the last yr the pt used illegal drug/Rx for NonMed reason: No Score: Yes response is considered Positive: 0 Screen Result (Positive result requires Nsg. DAST-10): Negative *Physical Exam - Vital Signs Last Vital Signs Temp Pulse Resp BP Pulse Ox 98.0 F 91 H 20 136/86 98 07/08/20 14:34 07/08/20 14:34 07/08/20 14:34 07/08/20 14:34 07/08/20 14:34 ED Treatment Course - LABORATORY CBC & Chemistry Diagram: 07/08/20 15:23 07/08/20 17:50 - RADIOLOGY Radiology Studies Ordered: Category Date Time Status ABDOMEN & PELVIS CT WITH CONTR [CT] Stat CT Scan 07/08/20 15:28 Ordered Medical Decision Making - Medical Decision Making 07/08/20 18:16 64-year-old female with history of diabetes on insulin, last hgA1C - 12, hypertension, HIV on [place] reports undetectable viral load presents complaining of pain and swelling to left buttock for 2.5 weeks. [place] drainage from the area 3 days ago. denies fever, chills, abdominal pain, nausea, vomiting, rectal pain, urinary complaints or any other symptoms. Patient was evaluated today at an outpatient clinic, was referred to the ED for I&D and possible admission for IV antibiotics. Left buttock abscess with uncontrolled diabetes Labs, type and screen, blood cultures IV fluids CTAP initially ordered with contrast however Cr 2.1, GFR 28 changed order to CTAP w/o con I spoke with radiologist Dr. Velez concerning this change IV clindamycin Glucose 720, ordered 10 units of regular insulin and IV fluid Awaiting repeat fingerstick Plan to admit patient 07/08/20 18:57 Repeat glucose 405 Cr 2.1, 05/22/20 Cr 2.0, 01/27/20 Cr 1.4 CTAP w/o con: Bilateral subcutaneous soft tissue stranding along the inferior aspect of buttocks ecg: HR 80, nsr, no acute st or tw changes covid swab ordered Uncontrolled diabetes with left buttock abscess mild admit for IV antibiotics IV clindamycin 600 mg received Ordered chest x-ray Patient does not have a PMD 07/08/20 19:[address] Slade, will admit to her service Discharge - Discharge Information Problems reviewed: Yes Clinical Impression/Diagnosis: Abscess Uncontrolled diabetes mellitus Qualifiers: Diabetes mellitus type: type 2 Glycemic state: with hyperglycemia Qualified Code(s): E11.65 - Type 2 diabetes mellitus with hyperglycemia Condition: Stable - Admission Yes - Follow up/Referral - Patient Discharge Instructions - Post Discharge Activity
[2020-07-08 16:00] LABS: BASO % 0.7 % (0-2.0); EOS % 1.6 % (0-4.5); HEMATOCRIT 41.9 % (32.4-45.2); HEMOGLOBIN 13.4 GM/dL (10.7-15.3); LYMPH % 48.8 % (8-40); MEAN CELL VOLUME 87.7 fl (80-96); MEAN PLT VOLUME 9.7 fl (7.5-11.1); MONO % 4.8 % (3.8-10.2); NEUT % 44.1 % (42.8-82.8); PLATELET COUNT 293 K/MM3 (134-434); RBC 4.77 M/mm3 (3.60-5.2); RDW 13.7 % (11.6-15.6); WHITE BLOOD COUNT 11.9 K/mm3 (4.0-10.0)
[2020-07-08 16:11] LABS: INR 0.92 (0.83-1.09); PROTHROMBIN TIME (PATIENT) 10.9 SEC (9.7-13.0)
[2020-07-08 16:14] LABS: ACTIVATED PTT 34.1 SECONDS (25.2-36.5)
[2020-07-08 16:27] LABS: ALBUMIN 3.2 g/dl (3.4-5.0); BILIRUBIN,TOTAL 0.4 mg/dL (0.2-1); BLOOD UREA NITROGEN 44.5 mg/dL (7-18); CALCIUM 9.7 mg/dL (8.5-10.1); CREATININE 2.1 mg/dL (0.55-1.3); POTASSIUM 5.7 mmol/L (3.5-5.1); TOT PROT 8.3 g/dl (6.4-8.2)
[2020-07-08] MEDS ORDERED: INSULIN REGULAR HUMAN 100 UNITS/ML *VIAL IVPUSH ONE (16:36)
[2020-07-08] MEDS ORDERED: CLINDAMYCIN 600MG PREMIX IVPB 600 MG/50 ML BAG IVPB ONE ×2 (17:13→18:04)
[2020-07-08 18:41] LABS: BLOOD UREA NITROGEN 41.2 mg/dL (7-18); CALCIUM 9.5 mg/dL (8.5-10.1); POTASSIUM 4.2 mmol/L (3.5-5.1)
[2020-07-09] MEDS ORDERED: ACETAMINOPHEN 325 MG TABLET (FP) PO PRN (00:53)
[2020-07-09] MEDS ORDERED: INSULIN (NOVOLOG) ASPART 100 UNITS/ML 10ML VIAL SQ ONE ×2 (01:41→03:13)
[2020-07-09] MEDS: INSULIN SLIDING SCALE (NOVOLOG) 1 VIAL SQ SCH ×4 (06:45→21:13)
[2020-07-09] MEDS: LEVOTHYROXINE NA 50 MCG TABLET (FP) PO SCH (06:45)
[2020-07-09] MEDS: INSULIN (LEVEMIR) 100 UNITS/ML UNITS SQ SCH (06:46)
--- NOTE | 2020-07-09 07:14 | HP ---
Admitting History and Physical - Primary Care Physician PCP: Rajan Slade - Admission History of Present Illness: 64-year-old female with history of diabetes on insulin, last hgA1C - 12, hypertension, HIV on [place] reports undetectable viral load presents complaining of pain and swelling to left buttock for 2.5 weeks. [place] drainage from the area 3 days ago. denies fever, chills, abdominal pain, nausea, vomiting, rectal pain, urinary complaints or any other symptoms. Patient was evaluated today at an outpatient clinic, was referred to the ED for I&D and possible admission for IV antibiotics. - Past Medical History Cardiovascular: Yes: CAD (with stent), HTN, Hyperlipdemia ...: No Infectious Disease: Yes: HIV Endocrine: Yes: Diabetes Mellitus (on insulin) - Past Surgical History Past Surgical History: Yes: Appendectomy (complicated- per pt, with right sided oophorectomy and removal of fallopian tube) - Smoking History Smoking history: Never smoked Have you smoked in the past 12 months: No Aproximately how many cigarettes per day: 0 If you are a former smoker, when did you quit?: 0 - Alcohol/Substance Use Hx Alcohol Use: Yes (occa) History of Substance Use: reports: Cocaine, Heroin - Social History ADL: Independent History of Recent Travel: No Home Medications - Allergies Allergies/Adverse Reactions: Allergies Allergy/AdvReac Type Severity Reaction Status Date / Time amoxicillin Allergy Verified 07/08/20 16:36 metronidazole [From Flagyl] Allergy Verified 07/08/20 16:36 - Home Medications Home Medications: Ambulatory Orders Brimonidine Tartrate/Timolol [Combigan 0.2%-0.5% Eye Drops] 1 drop OU BID 11/27/19 Carvedilol [Coreg -] 3.125 mg PO BID 11/27/19 Clopidogrel Bisulfate [Clopidogrel] 75 mg PO DAILY 11/27/19 Dulaglutide [Trulicity] 1.5 mg SQ WEEKLY MDD on 11/27/19 Insulin Glargine,Hum.rec.anlog [Basaglar Kwikpen U-100] 65 unit SQ AM 11/27/19 Levothyroxine [Synthroid -] 50 mcg PO DAILY 11/27/19 Rosuvastatin [Crestor -] 20 mg PO HS 11/27/19 Travoprost [Travatan Z] 1 drop OU HS 11/27/19 Emtricitab/Rilpiviri/Tenof Ala [Odefsey Tablet] 1 each PO DAILY 12/05/19 Aspirin Coated [Ecotrin -] 81 mg PO DAILY 01/27/20 Furosemide [Lasix] 20 mg PO DAILY 01/27/20 Hydroxyzine HCl 50 mg PO HS 01/27/20 Multivitamins [Multivit ([facility] Formulary)] 1 tab PO DAILY 01/27/20 Family Medical History Family Hx Cancer: Father (colon cancer 72) Family Hx Cardiac Disorders: Mother (: 74: "hrt problems") Physical Examination Vital Signs: Vital Signs Temperature 98.0 F 07/09/20 06:00 Pulse Rate 85 07/09/20 06:00 Respiratory Rate 20 07/09/20 06:00 Blood Pressure 112/67 07/09/20 06:00 O2 Sat by Pulse Oximetry (%) 93 L 07/09/20 06:00 Constitutional: Yes: No Distress HENT: Yes: Atraumatic Neck: Yes: Supple Cardiovascular: Yes: Regular Rate and Rhythm Respiratory: Yes: CTA Bilaterally Gastrointestinal: Yes: Normal Bowel Sounds Extremities: Yes: WNL, Other (R buttock abcess L thigh abcess) Peripheral Pulses WNL: Yes Neurological: Yes: Alert, Oriented Labs: CBC, BMP 07/08/20 15:23 07/08/20 17:50 Imaging - Results Cat Scan: Report Reviewed Problem List - Problems (1) Abscess Assessment/Plan: surgical consult iv abx pain meds Code(s): L02.91 - CUTANEOUS ABSCESS, UNSPECIFIED (2) Uncontrolled diabetes mellitus Assessment/Plan: insulin bgms Code(s): E11.65 - TYPE 2 DIABETES MELLITUS WITH HYPERGLYCEMIA Qualifiers: Diabetes mellitus type: type 2 Glycemic state: with hyperglycemia Qualified Code(s): E11.65 - Type 2 diabetes mellitus with hyperglycemia (3) CAD (coronary artery disease) Code(s): I25.10 - ATHSCL HEART DISEASE OF [place] CORONARY ARTERY W/O ANG PCTRS Qualifiers: (4) CKD (chronic kidney disease) Assessment/Plan: will get renal consult monitor Code(s): N18.9 - CHRONIC KIDNEY DISEASE, UNSPECIFIED Qualifiers: (5) HIV disease Assessment/Plan: on meds continue Code(s): B20 - HUMAN IMMUNODEFICIENCY VIRUS [HIV] DISEASE (6) Hypothyroid Assessment/Plan: meds Code(s): E03.9 - HYPOTHYROIDISM, UNSPECIFIED Qualifiers: Assessment/Plan Laboratory Tests 07/08/20 07/08/20 07/08/20 15:23 15:23 15:23 WBC 11.9 H RBC 4.77 Hgb 13.4 Hct 41.9 MCV 87.7 MCH 28.0 MCHC 32.0 RDW 13.7 Plt Count 293 MPV 9.7 Absolute Neuts (auto) 5.2 Neutrophils % 44.1 Lymphocytes % 48.8 H Monocytes % 4.8 Eosinophils % 1.6 Basophils % 0.7 Nucleated RBC % 0 PT with INR 10.90 INR 0.92 PTT (Actin FS) 34.1 Sodium 125 L Potassium 5.7 H Chloride 89 L Carbon Dioxide 27 Anion Gap 9 BUN 44.5 H Creatinine 2.1 H Est GFR (CKD-EPI)AfAm 28.12 Est GFR (CKD-EPI)NonAf 24.26 POC Glucometer Random Glucose 760 H* Calcium 9.7 Total Bilirubin 0.4 AST 37 ALT 16 Alkaline Phosphatase 184 H Total Protein 8.3 H Albumin 3.2 L Blood Type Antibody Screen 07/08/20 07/08/20 07/09/20 15:23 17:50 01:20 WBC RBC Hgb Hct MCV MCH MCHC RDW Plt Count MPV Absolute Neuts (auto) Neutrophils % Lymphocytes % Monocytes % Eosinophils % Basophils % Nucleated RBC % PT with INR INR PTT (Actin FS) Sodium 134 L Potassium 4.2 Chloride 99 Carbon Dioxide 25 Anion Gap 10 BUN 41.2 H Creatinine 2.0 H Est GFR (CKD-EPI)AfAm 29.83 Est GFR (CKD-EPI)NonAf 25.73 POC Glucometer 462 Random Glucose 405 H* Calcium 9.5 Total Bilirubin AST ALT Alkaline Phosphatase Total Protein Albumin Blood Type Cancelled Antibody Screen Cancelled 07/09/20 07/09/20 03:09 05:49 WBC RBC Hgb Hct MCV MCH MCHC RDW Plt Count MPV Absolute Neuts (auto) Neutrophils % Lymphocytes % Monocytes % Eosinophils % Basophils % Nucleated RBC % PT with INR INR PTT (Actin FS) Sodium Potassium Chloride Carbon Dioxide Anion Gap BUN Creatinine Est GFR (CKD-EPI)AfAm Est GFR (CKD-EPI)NonAf POC Glucometer 420 247 Random Glucose Calcium Total Bilirubin AST ALT Alkaline Phosphatase Total Protein Albumin Blood Type Antibody Screen Active Medications Generic Name Dose Route Start Last Admin Trade Name Guillaumeq PRN Reason Stop Dose Admin Acetaminophen 650 mg 07/09/20 00:53 Tylenol - PO Q6H PRN FEVER Aspirin 81 mg 07/09/20 10:00 Ecotrin - PO DAILY [facility] Brimonidine Tartrate 1 drop 07/09/20 10:00 Alphagan 0.2% - OU BID [facility] Carvedilol 3.125 mg 07/09/20 10:00 Coreg - PO BID [facility] Clopidogrel Bisulfate 75 mg 07/09/20 10:00 Plavix - PO DAILY [facility] Furosemide 20 mg 07/09/20 10:00 Lasix - PO DAILY [facility] Heparin Sodium (Porcine) 5,000 unit 07/09/20 10:00 Heparin - SQ BID [facility] Insulin Aspart 1 vial 07/09/20 07:00 07/09/20 06:45 Novolog Vial Sliding Scale - SQ 6 units ACHS BASIA Administration Protocol Insulin Detemir 65 units 07/09/20 07:00 07/09/20 06:46 Levemir Vial SQ 65 units AM [facility] Administration Levothyroxine Sodium 50 mcg 07/09/20 07:00 07/09/20 06:45 Synthroid - PO 50 mcg DAILY@0700 [facility] Administration Rosuvastatin Calcium 20 mg 07/09/20 22:00 Crestor - PO HS [facility] Timolol Maleate 1 drop 07/09/20 10:00 Timoptic 0.5% OU BID [facility]
--- NOTE | 2020-07-09 07:40 | CONSULT ---
Consult Detox [facility] Reason for Current Admission/Consult: Opioid and cocaine use disorder Referred by:: Rajan Slade - History History of Present Illness: 64-year-old female with history of diabetes on insulin, last hgA1C - 12, hypertension, HIV on [place] reports undetectable viral load presents complaining of pain and swelling to left buttock for 2.5 weeks, CAD ( with stent), HTN, and Hyperlipidemia. [place] drainage from the area 3 days ago. denies fever, chills, abdominal pain, nausea, vomiting, rectal pain, urinary complaints or any other symptoms. Patient was evaluated today at an outpatient clinic, was referred to the ED for I&D and possible admission for IV antibiotics. As per ED examination: PE: GENERAL: well-appearing, NAD HEAD: NCAT EYES: Pupils equal, round and reactive to light, sclera anicteric, conjunctiva clear ENT: pharynx: no erythema, no exudate, uvula midline NECK: supple CHEST: nontender RESP: clear, no w/r/r CARDIO: rrr, no m/g/r ABD: +BS, soft, nontender, non distended BACK: no midline spinal ttp, no CVAT EXTREMITIES: Normal range of motion, no edema NEUROLOGICAL: Normal speech, normal gait SKIN: Approximately 4 cm x 3.5 cm indurated area to left buttock with fluctuant center, minimal drainage noted, minimal surrounding warmth, no streaking noted - History Source History Provided By: Medical Record Limitations to Obtaining History: No Limitations - Alcohol/Substance Use Hx Alcohol Use: Yes (occa) Hx Substance Use: Yes (cocaine and heroin sporadic use) Hx Substance Use Treatment: No - Current Drug/Alcohol Use Cocaine Frequency: 1-3 times last 30 days Amount used: 1 line Age of first use: 30 Date of Last Use: 07/04/20 Heroin Route: Inhalation Frequency: 1-2 times per week Amount used: 1 bag Age of first use: 30 Date of Last Use: 07/05/20 - Past Medical History Cardio/Vascular: Yes: CAD (with stent), HTN, Hyperlipdemia ...: No Infectious Disease: Yes: HIV Endocrine: Yes: Diabetes Mellitus (on insulin) - Past Surgical History Past Surgical History: Yes: Appendectomy (complicated- per pt, with right sided oophorectomy and removal of fallopian tube) - Significant Medical Findings: Temperature 98.0 F 07/09/20 06:00 Pulse Rate 85 07/09/20 06:00 Respiratory Rate 20 07/09/20 06:00 Blood Pressure 112/67 07/09/20 06:00 O2 Sat by Pulse Oximetry (%) 93 L 07/09/20 06:00 Labs: CBC, BMP 07/08/20 15:23 07/08/20 17:50 Assessment Plan - Diagnosis (1) Opioid use disorder, mild, abuse Status: Acute - Plan Plan: 1. Opioid and cocaine use disorders: Patient is dismissive about use of substances and does not see it as a problem. Patient can be offered rehab services if she chooses to electively enter rehab. Patient should be referred to an outpatient substance treatment center such as [facility] at [facility] where she can gain insight into her use disorder and obtain appropriate therapy. She has no prior history of detox or rehab within our health system so it is unlikely that she views her substance use as a relevant medical problem. Please offer patient [facility] Services is she so chooses. 2.Abscess: Continue Antibiotic and referral to ID 3. Uncontrolled Diabetes: Offer dietary counseling and education and exercise and weight loss as well as compliance with medications 4. CAD: Follow up with cardiology and need for compliance with statins. 5. HIV Disease: Needs specialist follow up and monitoring for adherence to antiretrovirals 6. Hypothyroidism: Endocrine follow up and monitoring. - Medication Detox Regimen/Protocol: Not Applicable
[2020-07-09] MEDS ORDERED: PATIENT'S OWN MEDICATION (NON-FORMULARY) (Brimonidine Tartrate/Timolol [Combigan 0.2%-0.5% OU SCH (10:00)
--- NOTE | 2020-07-09 10:44 | CONSULT ---
- Consultation REQUESTING PROVIDER: CONSULT REQUEST: We have been asked to surgically evaluate this patient for Right buttock abscess PCP:Rajan Slade HISTORY OF PRESENT ILLNESS: The patient is a 64 yo female with HIV, DM who presented to the ER for complaints of pain to the right buttock and drainage from this area. She states the pain began approximately 1 to 2 weeks ago, having pain and then noted drainage several days ago. She also has an abscess on her le ft thigh(not draining) She denies fevers, CP or SOB. While in the ER her sugars were noted to be elevated. She has been taking her HIV medications and gets them prescribed for her for months at a time. She saw a new PMD last month. The patient gives no history of abscess in the past. She is having BM every other day. No pain with BM. PMHx: HIV, DM, chronic kidney disease, s/p cardiac stent in 2017, cocaine and opoid use, thyroid disorder, constipation PSHx: appendectomy with removal of Right ovary/fallopian tube, R buttock drainage ?abscess 40 years ago Home Medications Medication Instructions Recorded Brimonidine Tartrate/Timolol 1 drop OU BID 11/27/19 [Combigan 0.2%-0.5% Eye Drops] Carvedilol [Coreg -] 3.125 mg PO BID 11/27/19 Clopidogrel Bisulfate [Clopidogrel] 75 mg PO DAILY 11/27/19 Dulaglutide [Trulicity] 1.5 mg SQ WEEKLY MDD on 11/27/19 Insulin Glargine,Hum.rec.anlog 65 unit SQ AM 11/27/19 [Basaglar Kwikpen U-100] Levothyroxine [Synthroid -] 50 mcg PO DAILY 11/27/19 Rosuvastatin [Crestor -] 20 mg PO HS 11/27/19 Travoprost [Travatan Z] 1 drop OU HS 11/27/19 Emtricitab/Rilpiviri/Tenof Ala 1 each PO DAILY 12/05/19 [Odefsey Tablet] Aspirin Coated [Ecotrin -] 81 mg PO DAILY 01/27/20 Furosemide [Lasix] 20 mg PO DAILY 01/27/20 Hydroxyzine HCl 50 mg PO HS 01/27/20 Multivitamins [Multivit ([facility] 1 tab PO DAILY 01/27/20 Formulary)] Allergies Allergy/AdvReac Type Severity Reaction Status Date / Time amoxicillin Allergy Verified 07/08/20 16:36 metronidazole [From Flagyl] Allergy Verified 07/08/20 16:36 REVIEW OF SYSTEMS: CONSTITUTIONAL: Absent: fever, chills CARDIOVASCULAR: Absent: chest pain RESPIRATORY: Absent: cough, shortness of breath GASTROINTESTINAL: Absent: abdominal pain, abdominal distension GENITOURINARY: Absent: dysuria, hematuria NEUROLOGIC: Absent: focal weakness, paresthesias Present:unsteady gait ambulates with cane PHYSICAL EXAM: GENERAL: Awake, alert, and fully oriented, in no acute distress. LUNGS: Clear to auscultation bilat anteriorly. No wheezes, and no crackles. No accessory muscle use. HEART: Regular rate and rhythm. ABDOMEN: Soft, nontender, not distended, normoactive bowel sounds, no guarding, no rebound. Right buttock: medial inner aspect 2cm from rectum with nonerythematous area and 1/2 cm opening which drains pus with palpation. mild tenderness and induration Right anterior upper thigh with 1/2 cm opening, mild surrounding erythema and induration 2 cmx 2cm. LOWER EXTREMITIES: 2+ pulses, warm, well-perfused. No calf tenderness. No peripheral edema. skin intact NEUROLOGICAL: Normal speech, gait not observed. PSYCH: Cooperative. Good eye contact. Appropriate mood and affect. Vital Signs Temperature 98.0 F 07/09/20 06:00 Pulse Rate 85 07/09/20 06:00 Respiratory Rate 20 07/09/20 06:00 Blood Pressure 112/67 07/09/20 06:00 O2 Sat by Pulse Oximetry (%) 93 L 07/09/20 06:00 Lab Results WBC 11.9 K/mm3 (4.0-10.0) H 07/08/20 15:23 RBC 4.77 M/mm3 (3.60-5.2) 07/08/20 15:23 Hgb 13.4 GM/dL (10.7-15.3) 07/08/20 15:23 Hct 41.9 % (32.4-45.2) 07/08/20 15:23 MCV 87.7 fl (80-96) 07/08/20 15: MCHC 32.0 g/dl (32.0-36.0) 07/08/20 15:23 RDW 13.7 % (11.6-15.6) 07/08/20 15:23 Plt Count 293 K/MM3 (134-434) 07/08/20 15:23 INR 0.92 (0.83-1.09) 07/08/20 15:23 Sodium 134 mmol/L (136-145) L 07/08/20 17:50 Potassium 4.2 mmol/L (3.5-5.1) 07/08/20 17:50 Chloride 99 mmol/L (98-107) 07/08/20 17:50 Carbon Dioxide 25 mmol/L (21-32) 07/08/20 17:50 Anion Gap 10 MMOL/L (8-16) 07/08/20 17:50 BUN 41.2 mg/dL (7-18) H 07/08/20 17:50 Creatinine 2.0 mg/dL (0.55-1.3) H 07/08/20 17:50 Random Glucose 405 mg/dL (74-106) H* 07/08/20 17:50 Calcium 9.5 mg/dL (8.5-10.1) 07/08/20 17:50 Blood Type Cancelled 07/08/20 15:23 Antibody Screen Cancelled 07/08/20 15:23 Microbiology Blood cultures pending CT scan: no contrast: mild b/l SQ tissue swellling in the buttock inferiorly. No abscess seen. Left buttock with mild focal SQ soft tissue thickening. Problem List - Problems (1) ERIKA (acute kidney injury) Assessment/Plan: Adjust IV abx for renal dosing and monitor BUN/CRET as per the medical team Problems reviewed: Yes Code(s): N17.9 - ACUTE KIDNEY FAILURE, UNSPECIFIED (2) HIV (human immunodeficiency virus infection) Assessment/Plan: ID f/u and resume all oral HIV medications Problems reviewed: Yes Code(s): Z21 - ASYMPTOMATIC HUMAN IMMUNODEFICIENCY VIRUS INFECTION STATUS (3) Abscess Assessment/Plan: Right buttock with draining area to medial buttock, no abscess collection seen on CT scan(unable to obtain IV contrast, pt with chronic kidney disease) Plan for I&D of right buttock tomorrow. Npo after midnight Continue IV abx as per iD Local wound care with SITZ bath to buttock warm compress to left thigh area(no need for surgical drainage to this area) D/w Dr. Mendiola Problems reviewed: Yes Code(s): L02.91 - CUTANEOUS ABSCESS, UNSPECIFIED Visit type - Case Type Case Type: ED Admission - Emergency Emergency Visit: Yes ED Registration Date: 07/08/20 Care time: The patient presented to the Emergency Department on the above date and was hospitalized for further evaluation of their emergent condition. - New patient This patient is new to me today: Yes Date on this admission: 07/10/20
--- NOTE | 2020-07-09 10:53 | CON.ID ---
Consult Consult Specialty:: infectious diseases Referred by:: Reason for Consultation:: induration abscess in the rt gluteal region,on the left thigh - History of Present Illness Chief Complaint: pain in the gluteal region History of Present Illness: 64-year-old female with history of diabetes on insulin, last hgA1C - 12, hypertension, HIV on [place] reports undetectable viral load presents complaining of pain and swelling to left buttock for 2-3 weeks. Brave drainage from the area 3 days ago. denies fever, chills, abdominal pain, nausea, vomiting, rectal pain, urinary complaints or any other symptoms. Patient was evaluated today at an outpatient clinic, was referred to the ED for I&D and possible admission for IV antibiotics. currently patient is c/o of pain in the area surgery on the case - History Source History Provided By: Patient Limitations to Obtaining History: No Limitations - Past Medical History Cardio/Vascular: Yes: CAD (with stent), HTN, Hyperlipdemia ...: No Infectious Disease: Yes: HIV Endocrine: Yes: Diabetes Mellitus (on insulin) - Past Surgical History Past Surgical History: Yes: Appendectomy (complicated- per pt, with right sided oophorectomy and removal of fallopian tube) - Alcohol/Substance Use Hx Alcohol Use: Yes (occa) History of Substance Use: reports: Cocaine, Heroin - Smoking History Smoking history: Never smoked Have you smoked in the past 12 months: No Aproximately how many cigarettes per day: 0 If you are a former smoker, when did you quit?: 0 - Social History ADL: Independent History of Recent Travel: No Home Medications - Allergies Allergies/Adverse Reactions: Allergies Allergy/AdvReac Type Severity Reaction Status Date / Time amoxicillin Allergy Verified 07/08/20 16:36 metronidazole [From Flagyl] Allergy Verified 07/08/20 16:36 - Home Medications Home Medications: Ambulatory Orders Brimonidine Tartrate/Timolol [Combigan 0.2%-0.5% Eye Drops] 1 drop OU BID 11/27/19 Carvedilol [Coreg -] 3.125 mg PO BID 11/27/19 Clopidogrel Bisulfate [Clopidogrel] 75 mg PO DAILY 11/27/19 Dulaglutide [Trulicity] 1.5 mg SQ WEEKLY MDD on 11/27/19 Insulin Glargine,Hum.rec.anlog [Basaglar Kwikpen U-100] 65 unit SQ AM 11/27/19 Levothyroxine [Synthroid -] 50 mcg PO DAILY 11/27/19 Rosuvastatin [Crestor -] 20 mg PO HS 11/27/19 Travoprost [Travatan Z] 1 drop OU HS 11/27/19 Emtricitab/Rilpiviri/Tenof Ala [Odefsey Tablet] 1 each PO DAILY 12/05/19 Aspirin Coated [Ecotrin -] 81 mg PO DAILY 01/27/20 Furosemide [Lasix] 20 mg PO DAILY 01/27/20 Hydroxyzine HCl 50 mg PO HS 01/27/20 Multivitamins [Multivit ([facility] Formul[facility])] 1 tab PO DAILY 01/27/20 Family Medical History Family Hx Cancer: Father (colon cancer 72) Family Hx Cardiac Disorders: Mother (: 74: "hrt problems") Review of Systems - Review of Systems Constitutional: reports: No Symptoms Eyes: reports: No Symptoms HENT: reports: No Symptoms Neck: reports: No Symptoms Cardiovascular: reports: No Symptoms Respiratory: reports: No Symptoms Gastrointestinal: reports: No Symptoms Musculoskeletal: reports: Other Integumentary: reports: Other Neurological: reports: No Symptoms Endocrine: reports: No Symptoms Hematology/Lymphatic: reports: No Symptoms Psychiatric: reports: No Symptoms Physical Exam Vital Signs: Vital Signs Temperature 98.0 F 07/09/20 06:00 Pulse Rate 85 07/09/20 06:00 Respiratory Rate 20 07/09/20 06:00 Blood Pressure 112/67 07/09/20 06:00 O2 Sat by Pulse Oximetry (%) 93 L 07/09/20 06:00 Constitutional: Yes: Well Nourished, Mild Distress, Obese Eyes: Yes: Conjunctiva Clear HENT: Yes: Atraumatic, Normocephalic Neck: Yes: Supple, Trachea Midline Cardiovascular: Yes: Regular Rate and Rhythm Respiratory: Yes: Regular, CTA Bilaterally Gastrointestinal: Yes: Normal Bowel Sounds, Soft Musculoskeletal: Yes: WNL Extremities: Yes: Other Integumentary: Yes: Other (boils on the left thigh and induration on the rt gluteal region) Neurological: Yes: Alert, Oriented Labs: CBC, BMP 07/08/20 15:23 07/08/20 17:50 Imaging - Results Chest X-ray: Report Reviewed, Image Reviewed Cat Scan: Report Reviewed, Image Reviewed Assessment/Plan Problem List - Problems (1) Abscess Code(s): L02.91 - CUTANEOUS ABSCESS, UNSPECIFIED (2) Uncontrolled diabetes mellitus Code(s): E11.65 - TYPE 2 DIABETES MELLITUS WITH HYPERGLYCEMIA Qualifiers: Diabetes mellitus type: type 2 Glycemic state: with hyperglycemia Qualified Code(s): E11.65 - Type 2 diabetes mellitus with hyperglycemia (3) CAD (coronary artery disease) Code(s): I25.10 - ATHSCL HEART DISEASE OF [place] CORONARY ARTERY W/O ANG PCTRS Qualifiers: (4) CKD (chronic kidney disease) Code(s): N18.9 - CHRONIC KIDNEY DISEASE, UNSPECIFIED Qualifiers: (5) HIV disease Code(s): B20 - HUMAN IMMUNODEFICIENCY VIRUS [HIV] DISEASE (6) Hypothyroid Code(s): E03.9 - HYPOTHYROIDISM, UNSPECIFIED Qualifiers: plan will start patient on clinda and aztreonam surgery on case await for cx report rest as per the team
[2020-07-09] MEDS: CLOPIDOGREL BISULFATE 75 MG TABLET (FP) PO SCH (11:00)
[2020-07-09] MEDS ORDERED: CLINDAMYCIN IVPB 300 MG in DEXTROSE 5%-WATER - 48 ML IVPB SCH (11:00)
[2020-07-09] MEDS: ASPIRIN COATED 81 MG TABLET.EC PO SCH (11:00)
[2020-07-09] MEDS: CARVEDILOL 3.125 MG TABLET (FP) PO SCH ×2 (11:00→21:14)
[2020-07-09] MEDS: HEPARIN NA (PORCINE) 5,000 UNITS/ML 1ML VIAL SQ SCH ×2 (11:01→21:14)
[2020-07-09] MEDS: FUROSEMIDE 20 MG TABLET (FP) PO SCH (11:01)
[2020-07-09] MEDS: BRIMONIDINE TARTRATE 0.2% OPHTHALMIC 5 ML BOTTLE OU SCH ×2 (11:02→21:15)
[2020-07-09] MEDS: EMTRICITAB/RILPIVIRI/TENOF ALA (ODEFSEY) TABLET PO SCH (11:02)
[2020-07-09] MEDS: TIMOLOL 0.5% OPHTHALMIC SOL 5 ML BOTTLE OU SCH ×2 (11:03→21:15)
[2020-07-09] MEDS ORDERED: INSULIN (NOVOLOG) ASPART 100 UNITS/ML 10ML VIAL ONE ×2 (11:07→21:09)
[2020-07-09] MEDS: CLINDAMYCIN 300 MG PREMIX IVPB 300 MG/50 ML BAG IVPB SCH ×2 (12:26→18:55)
[2020-07-09] MEDS ORDERED: PT OWN MED DRAWER 7, Y5N ONE ×3 (14:50→20:44)
[2020-07-09] MEDS: AZTREONAM 1 GM in DEXTROSE 5%-WATER - 50 ML IVPB SCH ×2 (15:53→17:19)
--- NOTE | 2020-07-09 16:55 | EKG ---
Test Reason : Blood Pressure : / mmHG Vent. Rate : 080 BPM Atrial Rate : 080 BPM P-R Int : 164 ms QRS Dur : 078 ms QT Int : 390 ms P-R-T Axes : 040 -38 059 degrees QTc Int : 449 ms POOR DATA QUALITY, INTERPRETATION MAY BE ADVERSELY AFFECTED NORMAL SINUS RHYTHM LEFT AXIS DEVIATION VOLTAGE CRITERIA FOR LEFT VENTRICULAR HYPERTROPHY NONSPECIFIC ST ABNORMALITY ABNORMAL ECG WHEN COMPARED WITH ECG OF 27-JAN-2020 06:25, NO SIGNIFICANT CHANGE WAS FOUND Confirmed by JADE WALDRON MD ([id number]) on 07/09/2020 4:55:09 PM Referred By: Confirmed By:JADE WALDRON MD
[2020-07-09] MEDS ORDERED: AZTREONAM 1 GM VIAL (RESTRICTED TO ID) ONE (17:17)
[2020-07-09] MEDS ORDERED: DEXTROSE 5%-WATER - 50 ML IVPB ONE (17:17)
[2020-07-09] MEDS ORDERED: ROSUVASTATIN CA 20 MG TABLET (FP) PO SCH (22:00)
[2020-07-09] MEDS ORDERED: traMADol HCL 50 MG TABLET PO ONE (22:06)
[2020-07-09] MEDS ORDERED: INSULIN (LEVEMIR) 100 UNITS/ML UNITS SQ ONE (22:13)
[2020-07-10] MEDS ORDERED: AZTREONAM 1 GM VIAL (RESTRICTED TO ID) ONE ×2 (01:33→17:49)
[2020-07-10] MEDS ORDERED: DEXTROSE 5%-WATER - 50 ML IVPB ONE ×2 (01:33→17:49)
[2020-07-10] MEDS: AZTREONAM 1 GM in DEXTROSE 5%-WATER - 50 ML IVPB SCH ×3 (01:44→17:51)
[2020-07-10] MEDS: CLINDAMYCIN 300 MG PREMIX IVPB 300 MG/50 ML BAG IVPB SCH ×3 (03:49→19:53)
[2020-07-10] MEDS: INSULIN SLIDING SCALE (NOVOLOG) 1 VIAL SQ SCH ×4 (06:07→23:17)
[2020-07-10] MEDS: LEVOTHYROXINE NA 50 MCG TABLET (FP) PO SCH (06:07)
[2020-07-10] MEDS: INSULIN (LEVEMIR) 100 UNITS/ML UNITS SQ SCH (06:08)
[2020-07-10] MEDS ORDERED: INSULIN (LEVEMIR) 100 UNITS/ML UNITS SQ ONE (06:17)
[2020-07-10] MEDS ORDERED: INSULIN (NOVOLOG) ASPART 100 UNITS/ML 10ML VIAL ONE (06:17)
[2020-07-10 06:42] LABS: BASO % 0.4 % (0-2.0); EOS % 2.2 % (0-4.5); HEMATOCRIT 38.7 % (32.4-45.2); HEMOGLOBIN 12.7 GM/dL (10.7-15.3); LYMPH % 66.5 % (8-40); MCH 27.9 pg (25.7-33.7); MCHC 32.8 g/dl (32.0-36.0); MEAN CELL VOLUME 85.1 fl (80-96); MEAN PLT VOLUME 8.7 fl (7.5-11.1); MONO % 5.5 % (3.8-10.2); NEUT % 25.4 % (42.8-82.8); PLATELET COUNT 272 K/MM3 (134-434); RBC 4.55 M/mm3 (3.60-5.2); RDW 13.6 % (11.6-15.6); WHITE BLOOD COUNT 10.5 K/mm3 (4.0-10.0)
[2020-07-10 06:56] LABS: ALBUMIN 2.8 g/dl (3.4-5.0); BILIRUBIN,TOTAL 0.3 mg/dL (0.2-1); CALCIUM 8.7 mg/dL (8.5-10.1); CREATININE 1.7 mg/dL (0.55-1.3); POTASSIUM 3.9 mmol/L (3.5-5.1); TOT PROT 6.9 g/dl (6.4-8.2)
[2020-07-10 07:24] LABS: BLOOD UREA NITROGEN 43.5 mg/dL (7-18)
[2020-07-10] MEDS ORDERED: ONDANSETRON 4 MG/2 ML VIAL IVPUSH PRN ×2 (10:19→11:56)
[2020-07-10] MEDS ORDERED: oxyCODONE HCL 5 MG TABLET PO PRN (10:19)
[2020-07-10] MEDS ORDERED: PROPOFOL 20 ML ONE ×2 (10:29)
[2020-07-10] MEDS ORDERED: MIDAZOLAM HCL 2 MG/2 ML SINGLE DOSE VIAL ONE (10:29)
[2020-07-10] MEDS ORDERED: SUCCINYLCHOLINE CHLORIDE 200 MG/10 ML SYRINGE ONE (10:29)
[2020-07-10] MEDS ORDERED: LACTATED RINGERS SOLUTION 1,000 ML IV SCH ×3 (10:30→17:20)
[2020-07-10] MEDS ORDERED: DEXAMETHASONE SOD PHOSPHATE 4 MG/1 ML VIAL ONE (10:47)
[2020-07-10] MEDS: HEPARIN NA (PORCINE) 5,000 UNITS/ML 1ML VIAL SQ SCH ×2 (10:48→22:36)
--- NOTE | 2020-07-10 11:26 | OP ---
Operative Note - Note: Operative Date: 07/10/20 Pre-Operative Diagnosis: abscess right buttock/posterior thigh Operation: incision and drainage abscess Findings: abscess; not clinically a fistula in ano Surgeon: Willy Mendiola Anesthesiologist/LEAD RECOVERER: Mirlande Gonzalez Anesthesia: General Estimated Blood Loss (mls): 5 Drains & Tubes with Location: iodoform packing
[2020-07-10 11:32] VITALS: BMI 31.5
[2020-07-10] MEDS ORDERED: ACETAMINOPHEN 325 MG TABLET (FP) PO PRN (11:56)
--- NOTE | 2020-07-10 12:20 | PN ---
Progress Note, Physician History of Present Illness: stable no new issues for or today - Current Medication List Current Medications: Active Medications Acetaminophen (Tylenol -) 650 mg PO Q6H PRN PRN Reason: FEVER Aspirin (Ecotrin -) 81 mg PO DAILY [facility] Brimonidine Tartrate (Alphagan 0.2% -) 1 drop OU BID [facility] Carvedilol (Coreg -) 3.125 mg PO BID [facility] Clopidogrel Bisulfate (Plavix -) 75 mg PO DAILY [facility] Fentanyl (Sublimaze Injection -) 50 mcg IVPUSH [id number] PRN PRN Reason: PAIN-PACU ORDER X 4 DOSES ONLY Furosemide (Lasix -) 20 mg PO DAILY [facility] Heparin Sodium (Porcine) (Heparin -) 5,000 unit SQ BID [facility] Aztreonam 1 gm/ Dextrose 50 mls @ 100 mls/hr IVPB Q8H-IV [facility]; Protocol Clindamycin Phosphate (Cleocin 300 Mg Premix Ivpb) 300 mg in 50 mls @ 100 mls/hr IVPB Q8H [facility]; Protocol Lactated Ringer's (Lactated Ringers Solution) 1,000 mls @ 125 mls/hr IV ASDIR [facility] Insulin Aspart (Novolog Vial Sliding Scale -) 1 vial SQ ACHS [facility]; Protocol Insulin Detemir (Levemir Vial) 65 units SQ AM [facility] Levothyroxine Sodium (Synthroid -) 50 mcg PO DAILY@0700 [facility] Ondansetron HCl (Zofran Injection) 4 mg IVPUSH Q6H PRN PRN Reason: NAUSEA AND/OR VOMITING Oxycodone HCl (Roxicodone -) 5 mg PO Q4H PRN PRN Reason: PAIN LEVEL 1-5 Rosuvastatin Calcium (Crestor -) 20 mg PO HS [facility] Timolol Maleate (Timoptic 0.5%) 1 drop OU BID [facility] - Objective Vital Signs: Vital Signs Temperature 97.6 F 07/10/20 06:00 Pulse Rate 86 07/10/20 06:00 Respiratory Rate 18 07/10/20 06:00 Blood Pressure 110/71 07/10/20 06:00 O2 Sat by Pulse Oximetry (%) 97 07/10/20 06:00 Constitutional: Yes: No Distress, Calm Cardiovascular: Yes: S1, S2 Respiratory: Yes: Regular, CTA Bilaterally Gastrointestinal: Yes: Normal Bowel Sounds, Soft Musculoskeletal: Yes: WNL Extremities: Yes: WNL Neurological: Yes: Alert, Oriented Psychiatric: Yes: Alert, Oriented Labs: CBC, BMP 07/10/20 05:37 07/10/20 05:37 INR, PTT INR 0.92 (0.83-1.09) 07/08/20 15:23 Assessment/Plan Problem List - Problems (1) Abscess Code(s): L02.91 - CUTANEOUS ABSCESS, UNSPECIFIED (2) Uncontrolled diabetes mellitus Code(s): E11.65 - TYPE 2 DIABETES MELLITUS WITH HYPERGLYCEMIA Qualifiers: Diabetes mellitus type: type 2 Glycemic state: with hyperglycemia Qualified Code(s): E11.65 - Type 2 diabetes mellitus with hyperglycemia (3) CAD (coronary artery disease) Code(s): I25.10 - ATHSCL HEART DISEASE OF [place] CORONARY ARTERY W/O ANG PCTRS Qualifiers: (4) CKD (chronic kidney disease) Code(s): N18.9 - CHRONIC KIDNEY DISEASE, UNSPECIFIED Qualifiers: (5) HIV disease Code(s): B20 - HUMAN IMMUNODEFICIENCY VIRUS [HIV] DISEASE (6) Hypothyroid Code(s): E03.9 - HYPOTHYROIDISM, UNSPECIFIED Qualifiers: plan ct abx for or to send c and s rest as per the team
[2020-07-10] MEDS: CARVEDILOL 3.125 MG TABLET (FP) PO SCH ×2 (13:24→22:36)
[2020-07-10] MEDS: EMTRICITAB/RILPIVIRI/TENOF ALA (ODEFSEY) TABLET PO SCH ×2 (13:25→17:54)
[2020-07-10] MEDS: FUROSEMIDE 20 MG TABLET (FP) PO SCH (13:25)
[2020-07-10] MEDS: TIMOLOL 0.5% OPHTHALMIC SOL 5 ML BOTTLE OU SCH ×2 (13:25→22:37)
[2020-07-10] MEDS: ASPIRIN COATED 81 MG TABLET.EC PO SCH (13:25)
[2020-07-10] MEDS: CLOPIDOGREL BISULFATE 75 MG TABLET (FP) PO SCH (13:25)
[2020-07-10 13:38] LABS: ANISOCYTOSIS 0; MACROCYTOSIS 0; PLATELET ESTIMATE NORMAL
[2020-07-10] MEDS: BRIMONIDINE TARTRATE 0.2% OPHTHALMIC 5 ML BOTTLE OU SCH ×2 (15:56→22:36)
--- NOTE | 2020-07-10 16:36 | PN ---
Progress Note, Physician - Current Medication List Current Medications: Active Medications Acetaminophen (Tylenol -) 650 mg PO Q6H PRN PRN Reason: FEVER Aspirin (Ecotrin -) 81 mg PO DAILY [facility] Brimonidine Tartrate (Alphagan 0.2% -) 1 drop OU BID [facility] Carvedilol (Coreg -) 3.125 mg PO BID [facility] Clopidogrel Bisulfate (Plavix -) 75 mg PO DAILY [facility] Fentanyl (Sublimaze Injection -) 50 mcg IVPUSH [id number] PRN PRN Reason: PAIN-PACU ORDER X 4 DOSES ONLY Furosemide (Lasix -) 20 mg PO DAILY [facility] Heparin Sodium (Porcine) (Heparin -) 5,000 unit SQ BID [facility] Aztreonam 1 gm/ Dextrose 50 mls @ 100 mls/hr IVPB Q8H-IV [facility]; Protocol Clindamycin Phosphate (Cleocin 300 Mg Premix Ivpb) 300 mg in 50 mls @ 100 mls/hr IVPB Q8H-IV [facility]; Protocol Lactated Ringer's (Lactated Ringers Solution) 1,000 mls @ 125 mls/hr IV ASDIR [facility] Last Admin: 07/10/20 12:30 Dose: 0 mls Documented by: Insulin Aspart (Novolog Vial Sliding Scale -) 1 vial SQ ACHS [facility]; Protocol Insulin Detemir (Levemir Vial) 65 units SQ AM [facility] Levothyroxine Sodium (Synthroid -) 50 mcg PO DAILY@0700 [facility] Ondansetron HCl (Zofran Injection) 4 mg IVPUSH Q6H PRN PRN Reason: NAUSEA AND/OR VOMITING Oxycodone HCl (Roxicodone -) 5 mg PO Q4H PRN PRN Reason: PAIN LEVEL 1-5 Rosuvastatin Calcium (Crestor -) 20 mg PO HS [facility] Timolol Maleate (Timoptic 0.5%) 1 drop OU BID [facility] - Objective Vital Signs: Vital Signs Temperature 97.7 F 07/10/20 15:00 Pulse Rate 73 07/10/20 15:00 Respiratory Rate 18 07/10/20 15:00 Blood Pressure 143/75 07/10/20 15:00 O2 Sat by Pulse Oximetry (%) 96 07/10/20 12:30 Constitutional: Yes: No Distress HENT: Yes: Atraumatic Neck: Yes: Supple Cardiovascular: Yes: Regular Rate and Rhythm Respiratory: Yes: CTA Bilaterally Gastrointestinal: Yes: Normal Bowel Sounds Extremities: Yes: Other (R buttock abcess s/p I and D) Neurological: Yes: Alert, Oriented Labs: CBC, BMP 07/10/20 05:37 07/10/20 05:37 INR, PTT INR 0.92 (0.83-1.09) 07/08/20 15:23 Problem List - Problems (1) Abscess Assessment/Plan: s/p I and day today id consult Code(s): L02.91 - CUTANEOUS ABSCESS, UNSPECIFIED (2) Uncontrolled diabetes mellitus Assessment/Plan: insulin bgms Code(s): E11.65 - TYPE 2 DIABETES MELLITUS WITH HYPERGLYCEMIA Qualifiers: Diabetes mellitus type: type 2 Glycemic state: with hyperglycemia Qualified Code(s): E11.65 - Type 2 diabetes mellitus with hyperglycemia (3) CAD (coronary artery disease) Code(s): I25.10 - ATHSCL HEART DISEASE OF [place] CORONARY ARTERY W/O ANG PCTRS Qualifiers: (4) CKD (chronic kidney disease) Assessment/Plan: will get renal consult monitor Code(s): N18.9 - CHRONIC KIDNEY DISEASE, UNSPECIFIED Qualifiers: (5) HIV disease Assessment/Plan: on meds continue Code(s): B20 - HUMAN IMMUNODEFICIENCY VIRUS [HIV] DISEASE (6) Hypothyroid Assessment/Plan: meds Code(s): E03.9 - HYPOTHYROIDISM, UNSPECIFIED Qualifiers:
--- NOTE | 2020-07-10 17:20 | CONSULT ---
Consult Consult Specialty:: Nephrology Reason for Consultation:: CKD - History of Present Illness Chief Complaint: right buttocks pain History of Present Illness: Pt is a 64 year old female with pmhx of dm, hiv, htn, and history of ckd who presents to the er with right buttocks pain and swelling. SHe denies shortness of breath or chest pain. She was found to have an abscess. I was called to evaluate her for elevated manager basketball. She does have history of ckd. She has not followed in the office since her last visit. She denies nsaid use. - History Source History Provided By: Patient - Past Medical History Cardio/Vascular: Yes: CAD (with stent), HTN, Hyperlipdemia Renal/: Yes: Renal Inusuff ...: No Infectious Disease: Yes: HIV Endocrine: Yes: Diabetes Mellitus (on insulin) - Past Surgical History Past Surgical History: Yes: Appendectomy (complicated- per pt, with right sided oophorectomy and removal of fallopian tube) - Alcohol/Substance Use Hx Alcohol Use: Yes (occa) History of Substance Use: reports: Cocaine, Heroin - Smoking History Smoking history: Never smoked Have you smoked in the past 12 months: No Aproximately how many cigarettes per day: 0 If you are a former smoker, when did you quit?: 0 - Social History ADL: Independent History of Recent Travel: No Home Medications - Allergies Allergies/Adverse Reactions: Allergies Allergy/AdvReac Type Severity Reaction Status Date / Time amoxicillin Allergy Verified 07/08/20 16:36 metronidazole [From Flagyl] Allergy Verified 07/08/20 16:36 - Home Medications Home Medications: Ambulatory Orders Brimonidine Tartrate/Timolol [Combigan 0.2%-0.5% Eye Drops] 1 drop OU BID 11/27/19 Carvedilol [Coreg -] 3.125 mg PO BID 11/27/19 Clopidogrel Bisulfate [Clopidogrel] 75 mg PO DAILY 11/27/19 Dulaglutide [Trulicity] 1.5 mg SQ WEEKLY MDD on 11/27/19 Insulin Glargine,Hum.rec.anlog [Basaglar Kwikpen U-100] 65 unit SQ AM 11/27/19 Levothyroxine [Synthroid -] 50 mcg PO DAILY 11/27/19 Rosuvastatin [Crestor -] 20 mg PO HS 11/27/19 Travoprost [Travatan Z] 1 drop OU HS 11/27/19 Emtricitab/Rilpiviri/Tenof Ala [Odefsey Tablet] 1 each PO DAILY 12/05/19 Aspirin Coated [Ecotrin -] 81 mg PO DAILY 01/27/20 Furosemide [Lasix] 20 mg PO DAILY 01/27/20 Hydroxyzine HCl 50 mg PO HS 01/27/20 Multivitamins [Multivit ([facility] Formulary)] 1 tab PO DAILY 01/27/20 Family Medical History Family Hx Cancer: Father (colon cancer 72) Family Hx Cardiac Disorders: Mother (: 74: "hrt problems") Review of Systems - Review of Systems Constitutional: reports: No Symptoms Eyes: reports: No Symptoms HENT: reports: No Symptoms Neck: reports: No Symptoms Cardiovascular: reports: No Symptoms Respiratory: reports: No Symptoms Gastrointestinal: reports: No Symptoms Genitourinary: reports: No Symptoms Musculoskeletal: reports: No Symptoms Integumentary: reports: No Symptoms Neurological: reports: No Symptoms Endocrine: reports: No Symptoms Hematology/Lymphatic: reports: No Symptoms Psychiatric: reports: No Symptoms Physical Exam Vital Signs: Vital Signs Temperature 97.7 F 07/10/20 15:00 Pulse Rate 73 07/10/20 15:00 Respiratory Rate 18 07/10/20 15:00 Blood Pressure 143/75 07/10/20 15:00 O2 Sat by Pulse Oximetry (%) 96 07/10/20 12:30 Constitutional: Yes: Calm Eyes: Yes: Conjunctiva Clear HENT: Yes: Atraumatic Neck: Yes: Supple Cardiovascular: Yes: S1, S2 Respiratory: Yes: CTA Bilaterally Gastrointestinal: Yes: Normal Bowel Sounds, Soft Renal/: Yes: WNL Musculoskeletal: Yes: WNL Edema: No Neurological: Yes: Oriented Psychiatric: Yes: Oriented Labs: CBC, BMP 07/10/20 05:37 07/10/20 05:37 Imaging - Results Cat Scan: Report Reviewed Problem List - Problems (1) Abscess Code(s): L02.91 - CUTANEOUS ABSCESS, UNSPECIFIED (2) CKD (chronic kidney disease) Code(s): N18.9 - CHRONIC KIDNEY DISEASE, UNSPECIFIED Qualifiers: Assessment/Plan Current Medications Generic Name Dose Route Start Last Admin Trade Name Freq PRN Reason Stop Dose Admin Acetaminophen 650 mg 07/10/20 11:56 Tylenol - PO Q6H PRN FEVER Aspirin 81 mg 07/11/20 10:00 Ecotrin - PO DAILY [facility] Brimonidine Tartrate 1 drop 07/10/20 22:00 Alphagan 0.2% - OU BID [facility] Carvedilol 3.125 mg 07/10/20 22:00 Coreg - PO BID [facility] Clopidogrel Bisulfate 75 mg 07/11/20 10:00 Plavix - PO DAILY [facility] Fentanyl 50 mcg 07/10/20 11:56 Sublimaze Injection - IVPUSH [id number] PRN PAIN-PACU ORDER X 4 DOSES ONLY Furosemide 20 mg 07/11/20 10:00 Lasix - PO DAILY [facility] Heparin Sodium (Porcine) 5,000 unit 07/10/20 22:00 Heparin - SQ BID [facility] Aztreonam 1 gm/ Dextrose 50 mls @ 100 mls/hr 07/10/20 18:00 IVPB Q8H-IV [facility] Protocol Clindamycin Phosphate 300 mg in 50 mls @ 100 mls/hr 07/10/20 19:30 Cleocin 300 Mg Premix Ivpb IVPB Q8H-IV [facility] Protocol Lactated Ringer's 1,000 mls @ 125 mls/hr 07/10/20 11:56 07/10/20 12:30 Lactated Ringers Solution IV 0 mls ASDIR [facility] Administration Insulin Aspart 1 vial 07/10/20 16:30 Novolog Vial Sliding Scale - SQ ACHS [facility] Protocol Insulin Detemir 65 units 07/11/20 07:00 Levemir Vial SQ AM [facility] Levothyroxine Sodium 50 mcg 07/11/20 07:00 Synthroid - PO DAILY@0700 [facility] Ondansetron HCl 4 mg 07/10/20 11:56 Zofran Injection IVPUSH Q6H PRN NAUSEA AND/OR VOMITING Oxycodone HCl 5 mg 07/10/20 11:56 Roxicodone - PO Q4H PRN PAIN LEVEL 1-5 Rosuvastatin Calcium 20 mg 07/10/20 22:00 Crestor - PO HS [facility] Timolol Maleate 1 drop 07/10/20 22:00 Timoptic 0.5% OU BID [facility] Impression 1. ckd 2. left renal complex cyst 3. hld 4. HIV 5. cad 6. constipation 7. buttocks abscess Plan - check renal ultrasound to evaluate cyst, pt should also follow with urology - decrease rate of fluids - repeat labs in am - can stop fluids in am - monitor volume status
[2020-07-10] MEDS ORDERED: PT OWN MED DRAWER 7, Y5N ONE (17:50)
[2020-07-10] MEDS: oxyCODONE HCL 5 MG TABLET PO PRN (17:56)
[2020-07-10] MEDS ORDERED: INSULIN (NOVOLOG) ASPART 100 UNITS/ML 10ML VIAL SQ ONE (20:30)
[2020-07-10] MEDS: ROSUVASTATIN CA 20 MG TABLET (FP) PO SCH (22:36)
[2020-07-11] MEDS ORDERED: DEXTROSE 5%-WATER - 50 ML IVPB ONE ×3 (00:49→16:50)
[2020-07-11] MEDS ORDERED: AZTREONAM 1 GM VIAL (RESTRICTED TO ID) ONE ×3 (00:49→16:50)
[2020-07-11] MEDS: AZTREONAM 1 GM in DEXTROSE 5%-WATER - 50 ML IVPB SCH ×3 (01:04→17:36)
[2020-07-11] MEDS: CLINDAMYCIN 300 MG PREMIX IVPB 300 MG/50 ML BAG IVPB SCH ×3 (01:35→17:36)
[2020-07-11] MEDS ORDERED: PT OWN MED DRAWER 7, Y5N ONE ×3 (06:17→17:20)
[2020-07-11] MEDS ORDERED: INSULIN (NOVOLOG) ASPART 100 UNITS/ML 10ML VIAL ONE (06:18)
[2020-07-11] MEDS: INSULIN SLIDING SCALE (NOVOLOG) 1 VIAL SQ SCH ×5 (06:20→21:32)
[2020-07-11] MEDS: LEVOTHYROXINE NA 50 MCG TABLET (FP) PO SCH (06:20)
[2020-07-11] MEDS: INSULIN (LEVEMIR) 100 UNITS/ML UNITS SQ SCH (06:20)
[2020-07-11] MEDS: HEPARIN NA (PORCINE) 5,000 UNITS/ML 1ML VIAL SQ SCH ×2 (09:36→21:21)
[2020-07-11] MEDS: CARVEDILOL 3.125 MG TABLET (FP) PO SCH ×2 (09:36→21:21)
[2020-07-11] MEDS: ASPIRIN COATED 81 MG TABLET.EC PO SCH (09:36)
[2020-07-11] MEDS: FUROSEMIDE 20 MG TABLET (FP) PO SCH (09:36)
[2020-07-11] MEDS: CLOPIDOGREL BISULFATE 75 MG TABLET (FP) PO SCH (09:36)
[2020-07-11] MEDS: BRIMONIDINE TARTRATE 0.2% OPHTHALMIC 5 ML BOTTLE OU SCH ×2 (09:37→22:00)
[2020-07-11] MEDS: EMTRICITAB/RILPIVIRI/TENOF ALA (ODEFSEY) TABLET PO SCH (09:38)
[2020-07-11] MEDS: TIMOLOL 0.5% OPHTHALMIC SOL 5 ML BOTTLE OU SCH ×2 (10:45→22:01)
--- NOTE | 2020-07-11 11:33 | PN ---
Progress Note (short form) - Note Progress Note: Attending Surgeon POD #1 No c/o; VSS AF wound; packing removed; no drainage; minimal TTP o/w negative. IMP: doing well PLAN: Sitz baths; continue present tx. Willy Mendiola MD FACS.
--- NOTE | 2020-07-11 12:48 | PN ---
Progress Note, Physician History of Present Illness: gluteal region feels good leg bothering her - Current Medication List Current Medications: Active Medications Acetaminophen (Tylenol -) 650 mg PO Q6H PRN PRN Reason: FEVER Aspirin (Ecotrin -) 81 mg PO DAILY [facility] Last Admin: 07/11/20 09:36 Dose: 81 mg Documented by: Brimonidine Tartrate (Alphagan 0.2% -) 1 drop OU BID [facility] Last Admin: 07/11/20 09:37 Dose: 1 drop Documented by: Carvedilol (Coreg -) 3.125 mg PO BID [facility] Last Admin: 07/11/20 09:36 Dose: 3.125 mg Documented by: Clopidogrel Bisulfate (Plavix -) 75 mg PO DAILY [facility] Last Admin: 07/11/20 09:36 Dose: 75 mg Documented by: Fentanyl (Sublimaze Injection -) 50 mcg IVPUSH [id number] PRN PRN Reason: PAIN-PACU ORDER X 4 DOSES ONLY Furosemide (Lasix -) 20 mg PO DAILY [facility] Last Admin: 07/11/20 09:36 Dose: 20 mg Documented by: Heparin Sodium (Porcine) (Heparin -) 5,000 unit SQ BID [facility] Last Admin: 07/11/20 09:36 Dose: 5,000 unit Documented by: Aztreonam 1 gm/ Dextrose 50 mls @ 100 mls/hr IVPB Q8H-IV [facility]; Protocol Last Admin: 07/11/20 09:35 Dose: 100 mls/hr Documented by: Clindamycin Phosphate (Cleocin 300 Mg Premix Ivpb) 300 mg in 50 mls @ 100 mls/hr IVPB Q8H-IV [facility]; Protocol Last Admin: 07/11/20 09:35 Dose: 100 mls/hr Documented by: Insulin Aspart (Novolog Vial Sliding Scale -) 1 vial SQ ACHS [facility]; Protocol Last Admin: 07/11/20 11:43 Dose: 12 units Documented by: Insulin Detemir (Levemir Vial) 65 units SQ AM [facility] Last Admin: 07/11/20 06:20 Dose: 65 units Documented by: Levothyroxine Sodium (Synthroid -) 50 mcg PO DAILY@0700 [facility] Last Admin: 07/11/20 06:20 Dose: 50 mcg Documented by: Ondansetron HCl (Zofran Injection) 4 mg IVPUSH Q6H PRN PRN Reason: NAUSEA AND/OR VOMITING Oxycodone HCl (Roxicodone -) 5 mg PO Q4H PRN PRN Reason: PAIN LEVEL 1-5 Last Admin: 07/10/20 17:56 Dose: 5 mg Documented by: Rosuvastatin Calcium (Crestor -) 20 mg PO HS [facility] Last Admin: 07/10/20 22:36 Dose: 20 mg Documented by: Timolol Maleate (Timoptic 0.5%) 1 drop OU BID [facility] Last Admin: 07/11/20 10:45 Dose: 1 drop Documented by: - Objective Vital Signs: Vital Signs Temperature 98.2 F 07/11/20 09:34 Pulse Rate 74 07/11/20 09:34 Respiratory Rate 19 07/11/20 09:34 Blood Pressure 138/71 07/11/20 09:34 O2 Sat by Pulse Oximetry (%) 97 07/11/20 09:34 Constitutional: Yes: Calm, Mild Distress Cardiovascular: Yes: S1, S2 Respiratory: Yes: Regular, CTA Bilaterally Gastrointestinal: Yes: Normal Bowel Sounds, Soft Musculoskeletal: Yes: WNL Extremities: Yes: Erythema, Other Neurological: Yes: Alert, Oriented Psychiatric: Yes: Alert, Oriented Labs: CBC, BMP 07/10/20 05:37 07/10/20 05:37 INR, PTT INR 0.92 (0.83-1.09) 07/08/20 15:23 Assessment/Plan Problem List - Problems (1) Abscess Code(s): L02.91 - CUTANEOUS ABSCESS, UNSPECIFIED (2) Uncontrolled diabetes mellitus Code(s): E11.65 - TYPE 2 DIABETES MELLITUS WITH HYPERGLYCEMIA Qualifiers: Diabetes mellitus type: type 2 Glycemic state: with hyperglycemia Qualified Code(s): E11.65 - Type 2 diabetes mellitus with hyperglycemia (3) CAD (coronary artery disease) Code(s): I25.10 - ATHSCL HEART DISEASE OF [place] CORONARY ARTERY W/O ANG PCTRS Qualifiers: (4) CKD (chronic kidney disease) Code(s): N18.9 - CHRONIC KIDNEY DISEASE, UNSPECIFIED Qualifiers: (5) HIV disease Code(s): B20 - HUMAN IMMUNODEFICIENCY VIRUS [HIV] DISEASE (6) Hypothyroid Code(s): E03.9 - HYPOTHYROIDISM, UNSPECIFIED Qualifiers: plan ct abx organism noted will d/w the team
--- NOTE | 2020-07-11 17:29 | PN ---
Progress Note, Physician - Current Medication List Current Medications: Active Medications Acetaminophen (Tylenol -) 650 mg PO Q6H PRN PRN Reason: FEVER Aspirin (Ecotrin -) 81 mg PO DAILY [facility] Last Admin: 07/11/20 09:36 Dose: 81 mg Documented by: Brimonidine Tartrate (Alphagan 0.2% -) 1 drop OU BID [facility] Last Admin: 07/11/20 09:37 Dose: 1 drop Documented by: Carvedilol (Coreg -) 3.125 mg PO BID [facility] Last Admin: 07/11/20 09:36 Dose: 3.125 mg Documented by: Clopidogrel Bisulfate (Plavix -) 75 mg PO DAILY [facility] Last Admin: 07/11/20 09:36 Dose: 75 mg Documented by: Fentanyl (Sublimaze Injection -) 50 mcg IVPUSH [id number] PRN PRN Reason: PAIN-PACU ORDER X 4 DOSES ONLY Furosemide (Lasix -) 20 mg PO DAILY [facility] Last Admin: 07/11/20 09:36 Dose: 20 mg Documented by: Heparin Sodium (Porcine) (Heparin -) 5,000 unit SQ BID [facility] Last Admin: 07/11/20 09:36 Dose: 5,000 unit Documented by: Aztreonam 1 gm/ Dextrose 50 mls @ 100 mls/hr IVPB Q8H-IV [facility]; Protocol Last Admin: 07/11/20 09:35 Dose: 100 mls/hr Documented by: Clindamycin Phosphate (Cleocin 300 Mg Premix Ivpb) 300 mg in 50 mls @ 100 mls/hr IVPB Q8H-IV [facility]; Protocol Last Admin: 07/11/20 09:35 Dose: 100 mls/hr Documented by: Insulin Aspart (Novolog Vial Sliding Scale -) 1 vial SQ ACHS [facility]; Protocol Last Admin: 07/11/20 16:52 Dose: 10 units Documented by: Insulin Detemir (Levemir Vial) 65 units SQ AM [facility] Last Admin: 07/11/20 06:20 Dose: 65 units Documented by: Levothyroxine Sodium (Synthroid -) 50 mcg PO DAILY@0700 [facility] Last Admin: 07/11/20 06:20 Dose: 50 mcg Documented by: Ondansetron HCl (Zofran Injection) 4 mg IVPUSH Q6H PRN PRN Reason: NAUSEA AND/OR VOMITING Oxycodone HCl (Roxicodone -) 5 mg PO Q4H PRN PRN Reason: PAIN LEVEL 1-5 Last Admin: 07/10/20 17:56 Dose: 5 mg Documented by: Rosuvastatin Calcium (Crestor -) 20 mg PO HS [facility] Last Admin: 07/10/20 22:36 Dose: 20 mg Documented by: Timolol Maleate (Timoptic 0.5%) 1 drop OU BID [facility] Last Admin: 07/11/20 10:45 Dose: 1 drop Documented by: - Objective Vital Signs: Vital Signs Temperature 98.2 F 07/11/20 09:34 Pulse Rate 74 07/11/20 09:34 Respiratory Rate 19 07/11/20 09:34 Blood Pressure 138/71 07/11/20 09:34 O2 Sat by Pulse Oximetry (%) 97 07/11/20 09:34 Constitutional: Yes: No Distress HENT: Yes: Atraumatic Neck: Yes: Supple Cardiovascular: Yes: Regular Rate and Rhythm Respiratory: Yes: CTA Bilaterally Extremities: Yes: Other (R buttock abcess) Neurological: Yes: Alert, Oriented Labs: CBC, BMP 07/10/20 05:37 07/10/20 05:37 INR, PTT INR 0.92 (0.83-1.09) 07/08/20 15:23 Problem List - Problems (1) Abscess Assessment/Plan: s/p I and D on abx id consult Code(s): L02.91 - CUTANEOUS ABSCESS, UNSPECIFIED (2) Uncontrolled diabetes mellitus Assessment/Plan: insulin bgms Code(s): E11.65 - TYPE 2 DIABETES MELLITUS WITH HYPERGLYCEMIA Qualifiers: Diabetes mellitus type: type 2 Glycemic state: with hyperglycemia Qu alified Code(s): E11.65 - Type 2 diabetes mellitus with hyperglycemia (3) CAD (coronary artery disease) Code(s): I25.10 - ATHSCL HEART DISEASE OF [place] CORONARY ARTERY W/O ANG PCTRS Qualifiers: (4) CKD (chronic kidney disease) Assessment/Plan: will get renal consult monitor Code(s): N18.9 - CHRONIC KIDNEY DISEASE, UNSPECIFIED Qualifiers: (5) HIV disease Code(s): B20 - HUMAN IMMUNODEFICIENCY VIRUS [HIV] DISEASE (6) Hypothyroid Code(s): E03.9 - HYPOTHYROIDISM, UNSPECIFIED Qualifiers:
--- NOTE | 2020-07-11 18:16 | PN ---
Progress Note (short form) - Note Progress Note: Probleems 1. ckd 2. left renal complex cyst 3. hld 4. HIV 5. cad 6. constipation 7. buttocks abscess Active Medications Acetaminophen (Tylenol -) 650 mg PO Q6H PRN PRN Reason: FEVER Aspirin (Ecotrin -) 81 mg PO DAILY [facility] Last Admin: 07/11/20 09:36 Dose: 81 mg Documented by: Brimonidine Tartrate (Alphagan 0.2% -) 1 drop OU BID [facility] Last Admin: 07/11/20 09:37 Dose: 1 drop Documented by: Carvedilol (Coreg -) 3.125 mg PO BID [facility] Last Admin: 07/11/20 09:36 Dose: 3.125 mg Documented by: Clopidogrel Bisulfate (Plavix -) 75 mg PO DAILY [facility] Last Admin: 07/11/20 09:36 Dose: 75 mg Documented by: Fentanyl (Sublimaze Injection -) 50 mcg IVPUSH [id number] PRN PRN Reason: PAIN-PACU ORDER X 4 DOSES ONLY Furosemide (Lasix -) 20 mg PO DAILY [facility] Last Admin: 07/11/20 09:36 Dose: 20 mg Documented by: Heparin Sodium (Porcine) (Heparin -) 5,000 unit SQ BID [facility] Last Admin: 07/11/20 09:36 Dose: 5,000 unit Documented by: Aztreonam 1 gm/ Dextrose 50 mls @ 100 mls/hr IVPB Q8H-IV [facility]; Protocol Last Admin: 07/11/20 17:36 Dose: 100 mls/hr Documented by: Clindamycin Phosphate (Cleocin 300 Mg Premix Ivpb) 300 mg in 50 mls @ 100 mls/hr IVPB Q8H-IV [facility]; Protocol Last Admin: 07/11/20 17:36 Dose: 100 mls/hr Documented by: Insulin Aspart (Novolog Vial Sliding Scale -) 1 vial SQ ACHS [facility]; Protocol Last Admin: 07/11/20 16:52 Dose: 10 units Documented by: Insulin Detemir (Levemir Vial) 65 units SQ AM [facility] Last Admin: 07/11/20 06:20 Dose: 65 units Documented by: Levothyroxine Sodium (Synthroid -) 50 mcg PO DAILY@0700 [facility] Last Admin: 07/11/20 06:20 Dose: 50 mcg Documented by: Ondansetron HCl (Zofran Injection) 4 mg IVPUSH Q6H PRN PRN Reason: NAUSEA AND/OR VOMITING Oxycodone HCl (Roxicodone -) 5 mg PO Q4H PRN PRN Reason: PAIN LEVEL 1-5 Last Admin: 07/10/20 17:56 Dose: 5 mg Documented by: Rosuvastatin Calcium (Crestor -) 20 mg PO HS [facility] Last Admin: 07/10/20 22:36 Dose: 20 mg Documented by: Timolol Maleate (Timoptic 0.5%) 1 drop OU BID [facility] Last Admin: 07/11/20 10:45 Dose: 1 drop Documented by: Last Vital Signs Temp Pulse Resp BP Pulse Ox 98.2 F 74 19 138/71 97 07/11/20 09:34 07/11/20 09:34 07/11/20 09:34 07/11/20 09:34 07/11/20 09:34 Constitutional: Yes: No Distress HENT: Yes: Atraumatic Neck: Yes: Supple Cardiovascular: Yes: Regular Rate and Rhythm Respiratory: Yes: CTA Bilaterally Extremities: Yes: Other (R buttock abcess) Neurological: Yes: Alert, Oriented CBC, BMP 07/10/20 05:37 07/10/20 05:37 IMP- CKD Abscess Plan - check renal ultrasound to evaluate cyst, f/u urology - decrease rate of fluids - repeat labs in am - monitor volume status
[2020-07-11] MEDS: ROSUVASTATIN CA 20 MG TABLET (FP) PO SCH (21:21)
[2020-07-11] MEDS: POLYETHYLENE GLYCOL 3350 255 GM BTL PO SCH (21:21)
[2020-07-11] MEDS: oxyCODONE HCL 5 MG TABLET PO PRN (21:24)
[2020-07-12] MEDS ORDERED: DEXTROSE 5%-WATER - 50 ML IVPB ONE ×2 (01:10→09:13)
[2020-07-12] MEDS ORDERED: AZTREONAM 1 GM VIAL (RESTRICTED TO ID) ONE ×2 (01:10→09:13)
[2020-07-12] MEDS: AZTREONAM 1 GM in DEXTROSE 5%-WATER - 50 ML IVPB SCH ×2 (01:13→10:07)
[2020-07-12] MEDS: CLINDAMYCIN 300 MG PREMIX IVPB 300 MG/50 ML BAG IVPB SCH ×2 (01:51→10:05)
[2020-07-12] MEDS ORDERED: diphenhydrAMINE HCL 25 MG CAPSULE (FP) PO ONE (02:30)
[2020-07-12] MEDS: INSULIN (LEVEMIR) 100 UNITS/ML UNITS SQ SCH (06:51)
[2020-07-12] MEDS: LEVOTHYROXINE NA 50 MCG TABLET (FP) PO SCH (06:51)
[2020-07-12] MEDS: INSULIN SLIDING SCALE (NOVOLOG) 1 VIAL SQ SCH ×4 (06:52→22:34)
[2020-07-12 07:36] LABS: BASO % 0.9 % (0-2.0); EOS % 2.2 % (0-4.5); HEMATOCRIT 39.1 % (32.4-45.2); HEMOGLOBIN 12.7 GM/dL (10.7-15.3); MCHC 32.6 g/dl (32.0-36.0); MEAN PLT VOLUME 8.4 fl (7.5-11.1); MONO % 4.4 % (3.8-10.2); NEUT % 26.5 % (42.8-82.8); PLATELET COUNT 248 K/MM3 (134-434); RBC 4.55 M/mm3 (3.60-5.2); RDW 13.7 % (11.6-15.6); WHITE BLOOD COUNT 11.4 K/mm3 (4.0-10.0)
[2020-07-12 07:54] LABS: ALBUMIN 2.6 g/dl (3.4-5.0); BILIRUBIN,TOTAL 0.3 mg/dL (0.2-1); BLOOD UREA NITROGEN 32.2 mg/dL (7-18); CALCIUM 8.6 mg/dL (8.5-10.1); CREATININE 1.6 mg/dL (0.55-1.3); POTASSIUM 4.5 mmol/L (3.5-5.1); TOT PROT 6.7 g/dl (6.4-8.2)
[2020-07-12] MEDS ORDERED: PT OWN MED DRAWER 7, Y5N ONE (09:14)
[2020-07-12 09:43] LABS: ANISOCYTOSIS 0; MACROCYTOSIS 0; PLATELET ESTIMATE NORMAL
[2020-07-12] MEDS: FUROSEMIDE 20 MG TABLET (FP) PO SCH (10:06)
[2020-07-12] MEDS: HEPARIN NA (PORCINE) 5,000 UNITS/ML 1ML VIAL SQ SCH ×2 (10:07→22:26)
[2020-07-12] MEDS: CARVEDILOL 3.125 MG TABLET (FP) PO SCH ×2 (10:07→22:26)
[2020-07-12] MEDS: ASPIRIN COATED 81 MG TABLET.EC PO SCH (10:07)
[2020-07-12] MEDS: EMTRICITAB/RILPIVIRI/TENOF ALA (ODEFSEY) TABLET PO SCH (10:07)
[2020-07-12] MEDS: CLOPIDOGREL BISULFATE 75 MG TABLET (FP) PO SCH (10:07)
[2020-07-12] MEDS: POLYETHYLENE GLYCOL 3350 255 GM BTL PO SCH ×2 (10:07→22:25)
[2020-07-12] MEDS: BRIMONIDINE TARTRATE 0.2% OPHTHALMIC 5 ML BOTTLE OU SCH ×2 (10:09→22:36)
[2020-07-12] MEDS: TIMOLOL 0.5% OPHTHALMIC SOL 5 ML BOTTLE OU SCH ×2 (10:10→22:36)
--- NOTE | 2020-07-12 12:01 | PN ---
Progress Note, Physician History of Present Illness: stable no new issues - Current Medication List Current Medications: Active Medications Acetaminophen (Tylenol -) 650 mg PO Q6H PRN PRN Reason: FEVER Aspirin (Ecotrin -) 81 mg PO DAILY [facility] Last Admin: 07/12/20 10:07 Dose: 81 mg Documented by: Brimonidine Tartrate (Alphagan 0.2% -) 1 drop OU BID [facility] Last Admin: 07/12/20 10:09 Dose: 1 drop Documented by: Carvedilol (Coreg -) 3.125 mg PO BID [facility] Last Admin: 07/12/20 10:07 Dose: 3.125 mg Documented by: Clopidogrel Bisulfate (Plavix -) 75 mg PO DAILY [facility] Last Admin: 07/12/20 10:07 Dose: 75 mg Documented by: Fentanyl (Sublimaze Injection -) 50 mcg IVPUSH [id number] PRN PRN Reason: PAIN-PACU ORDER X 4 DOSES ONLY Furosemide (Lasix -) 20 mg PO DAILY [facility] Last Admin: 07/12/20 10:06 Dose: 20 mg Documented by: Heparin Sodium (Porcine) (Heparin -) 5,000 unit SQ BID [facility] Last Admin: 07/12/20 10:07 Dose: 5,000 unit Documented by: Aztreonam 1 gm/ Dextrose 50 mls @ 100 mls/hr IVPB Q8H-IV [facility]; Protocol Last Admin: 07/12/20 10:07 Dose: 100 mls/hr Documented by: Clindamycin Phosphate (Cleocin 300 Mg Premix Ivpb) 300 mg in 50 mls @ 100 mls/hr IVPB Q8H-IV [facility]; Protocol Last Admin: 07/12/20 10:05 Dose: 100 mls/hr Documented by: Insulin Aspart (Novolog Vial Sliding Scale -) 1 vial SQ ACHS [facility]; Protocol Last Admin: 07/12/20 06:52 Dose: Not Given Documented by: Insulin Detemir (Levemir Vial) 65 units SQ AM [facility] Last Admin: 07/12/20 06:51 Dose: 65 units Documented by: Levothyroxine Sodium (Synthroid -) 50 mcg PO DAILY@0700 [facility] Last Admin: 07/12/20 06:51 Dose: 50 mcg Documented by: Ondansetron HCl (Zofran Injection) 4 mg IVPUSH Q6H PRN PRN Reason: NAUSEA AND/OR VOMITING Oxycodone HCl (Roxicodone -) 5 mg PO Q4H PRN PRN Reason: PAIN LEVEL 1-5 Last Admin: 07/11/20 21:24 Dose: 5 mg Documented by: Polyethylene Glycol (Miralax (For Bowel Prep) -) 17 gm PO BID [facility] Last Admin: 07/12/20 10:07 Dose: 17 gm Documented by: Rosuvastatin Calcium (Crestor -) 20 mg PO HS [facility] Last Admin: 07/11/20 21:21 Dose: 20 mg Documented by: Timolol Maleate (Timoptic 0.5%) 1 drop OU BID [facility] Last Admin: 07/12/20 10:10 Dose: 1 drop Documented by: - Objective Vital Signs: Vital Signs Temperature 98.3 F 07/11/20 22:00 Pulse Rate 76 07/11/20 22:00 Respiratory Rate 20 07/11/20 22:00 Blood Pressure 154/73 07/11/20 22:00 O2 Sat by Pulse Oximetry (%) 96 07/11/20 22:00 Constitutional: Yes: No Distress, Calm Cardiovascular: Yes: S1, S2 Respiratory: Yes: Regular, CTA Bilaterally Gastrointestinal: Yes: Normal Bowel Sounds, Soft Musculoskeletal: Yes: WNL Extremities: Yes: WNL Neurological: Yes: Alert, Oriented Psychiatric: Yes: Alert, Oriented Labs: CBC, BMP 07/12/20 07:00 07/12/20 07:00 INR, PTT INR 0.92 (0.83-1.09) 07/08/20 15:23 Assessment/Plan Problem List - Problems (1) Abscess Code(s): L02.91 - CUTANEOUS ABSCESS, UNSPECIFIED (2) Uncontrolled diabetes mellitus Code(s): E11.65 - TYPE 2 DIABETES MELLITUS WITH HYPERGLYCEMIA Qualifiers: Diabetes mellitus type: type 2 Glycemic state: with hyperglycemia Qualified Code(s): E11.65 - Type 2 diabetes mellitus with hyperglycemia (3) CAD (coronary artery disease) Code(s): I25.10 - ATHSCL HEART DISEASE OF [place] CORONARY ARTERY W/O ANG PCTRS Qualifiers: (4) CKD (chronic kidney disease) Code(s): N18.9 - CHRONIC KIDNEY DISEASE, UNSPECIFIED Qualifiers: (5) HIV disease Code(s): B20 - HUMAN IMMUNODEFICIENCY VIRUS [HIV] DISEASE (6) Hypothyroid Code(s): E03.9 - HYPOTHYROIDISM, UNSPECIFIED Qualifiers: plan changed to oral continue current mgmt
[2020-07-12] MEDS: CLINDAMYCIN HCL 150 MG CAPSULE (FP) PO SCH ×2 (17:27→23:15)
--- NOTE | 2020-07-12 18:52 | PN ---
Progress Note (short form) - Note Progress Note: Probleems 1. ckd 2. left renal complex cyst 3. hld 4. HIV 5. cad 6. constipation 7. buttocks abscess Active Medications Acetaminophen (Tylenol -) 650 mg PO Q6H PRN PRN Reason: FEVER Aspirin (Ecotrin -) 81 mg PO DAILY [facility] Last Admin: 07/12/20 10:07 Dose: 81 mg Documented by: Brimonidine Tartrate (Alphagan 0.2% -) 1 drop OU BID [facility] Last Admin: 07/12/20 10:09 Dose: 1 drop Documented by: Carvedilol (Coreg -) 3.125 mg PO BID [facility] Last Admin: 07/12/20 10:07 Dose: 3.125 mg Documented by: Clindamycin HCl (Cleocin -) 300 mg PO Q6HPO [facility] Last Admin: 07/12/20 17:27 Dose: 300 mg Documented by: Clopidogrel Bisulfate (Plavix -) 75 mg PO DAILY [facility] Last Admin: 07/12/20 10:07 Dose: 75 mg Documented by: Fentanyl (Sublimaze Injection -) 50 mcg IVPUSH [id number] PRN PRN Reason: PAIN-PACU ORDER X 4 DOSES ONLY Furosemide (Lasix -) 20 mg PO DAILY [facility] Last Admin: 07/12/20 10:06 Dose: 20 mg Documented by: Heparin Sodium (Porcine) (Heparin -) 5,000 unit SQ BID [facility] Last Admin: 07/12/20 10:07 Dose: 5,000 unit Documented by: Insulin Aspart (Novolog Vial Sliding Scale -) 1 vial SQ ACHS [facility]; Protocol Last Admin: 07/12/20 16:46 Dose: Not Given Documented by: Insulin Detemir (Levemir Vial) 65 units SQ AM [facility] Last Admin: 07/12/20 06:51 Dose: 65 units Documented by: Levothyroxine Sodium (Synthroid -) 50 mcg PO DAILY@0700 [facility] Last Admin: 07/12/20 06:51 Dose: 50 mcg Documented by: Ondansetron HCl (Zofran Injection) 4 mg IVPUSH Q6H PRN PRN Reason: NAUSEA AND/OR VOMITING Oxycodone HCl (Roxicodone -) 5 mg PO Q4H PRN PRN Reason: PAIN LEVEL 1-5 Last Admin: 07/11/20 21:24 Dose: 5 mg Documented by: Polyethylene Glycol (Miralax (For Bowel Prep) -) 17 gm PO BID [facility] Last Admin: 07/12/20 10:07 Dose: 17 gm Documented by: Rosuvastatin Calcium (Crestor -) 20 mg PO [facility] Last Admin: 07/11/20 21:21 Dose: 20 mg Documented by: Timolol Maleate (Timoptic 0.5%) 1 drop OU BID [facility] Last Admin: 07/12/20 10:10 Dose: 1 drop Documented by: Last Vital Signs Temp Pulse Resp BP Pulse Ox 98.2 F 73 18 148/82 96 07/12/20 10:00 07/12/20 10:00 07/12/20 10:00 07/12/20 10:00 07/12/20 10:00 Constitutional: Yes: No Distress HENT: Yes: Atraumatic Neck: Yes: Supple Cardiovascular: Yes: Regular Rate and Rhythm Respiratory: Yes: CTA Bilaterally Extremities: Yes: Other (R buttock abcess) Neurological: Yes: Alert, Oriented CBC, BMP 07/12/20 07:00 07/12/20 07:00 CBC, BMP 07/10/20 05:37 07/10/20 05:37 IMP- ERIKA improving Underlying CKD Abscess Plan - decrease rate of fluids - repeat labs in am - monitor volume status
--- NOTE | 2020-07-12 21:25 | PN ---
Progress Note, Physician History of Present Illness: Pt complains of constipation - Current Medication List Current Medications: Active Medications Acetaminophen (Tylenol -) 650 mg PO Q6H PRN PRN Reason: FEVER Aspirin (Ecotrin -) 81 mg PO DAILY [facility] Last Admin: 07/12/20 10:07 Dose: 81 mg Documented by: Brimonidine Tartrate (Alphagan 0.2% -) 1 drop OU BID [facility] Last Admin: 07/12/20 10:09 Dose: 1 drop Documented by: Carvedilol (Coreg -) 3.125 mg PO BID [facility] Last Admin: 07/12/20 10:07 Dose: 3.125 mg Documented by: Clindamycin HCl (Cleocin -) 300 mg PO Q6HPO [facility] Last Admin: 07/12/20 17:27 Dose: 300 mg Documented by: Clopidogrel Bisulfate (Plavix -) 75 mg PO DAILY [facility] Last Admin: 07/12/20 10:07 Dose: 75 mg Documented by: Fentanyl (Sublimaze Injection -) 50 mcg IVPUSH [id number] PRN PRN Reason: PAIN-PACU ORDER X 4 DOSES ONLY Furosemide (Lasix -) 20 mg PO DAILY [facility] Last Admin: 07/12/20 10:06 Dose: 20 mg Documented by: Heparin Sodium (Porcine) (Heparin -) 5,000 unit SQ BID [facility] Last Admin: 07/12/20 10:07 Dose: 5,000 unit Documented by: Insulin Aspart (Novolog Vial Sliding Scale -) 1 vial SQ [facility]; Protocol Last Admin: 07/12/20 16:46 Dose: Not Given Documented by: Insulin Detemir (Levemir Vial) 65 units SQ AM [facility] Last Admin: 07/12/20 06:51 Dose: 65 units Documented by: Levothyroxine Sodium (Synthroid -) 50 mcg PO DAILY@0700 [facility] Last Admin: 07/12/20 06:51 Dose: 50 mcg Documented by: Ondansetron HCl (Zofran Injection) 4 mg IVPUSH Q6H PRN PRN Reason: NAUSEA AND/OR VOMITING Oxycodone HCl (Roxicodone -) 5 mg PO Q4H PRN PRN Reason: PAIN LEVEL 1-5 Last Admin: 07/11/20 21:24 Dose: 5 mg Documented by: Polyethylene Glycol (Miralax (For Bowel Prep) -) 17 gm PO BID [facility] Last Admin: 07/12/20 10:07 Dose: 17 gm Documented by: Rosuvastatin Calcium (Crestor -) 20 mg PO HS [facility] Last Admin: 07/11/20 21:21 Dose: 20 mg Documented by: Timolol Maleate (Timoptic 0.5%) 1 drop OU BID [facility] Last Admin: 07/12/20 10:10 Dose: 1 drop Documented by: - Objective Vital Signs: Vital Signs Temperature 98.1 F 07/12/20 19:08 Pulse Rate 70 07/12/20 19:08 Respiratory Rate 18 07/12/20 19:08 Blood Pressure 124/68 07/12/20 19:08 O2 Sat by Pulse Oximetry (%) 95 07/12/20 19:08 Neck: Yes: WNL, Supple Cardiovascular: Yes: WNL, Regular Rate and Rhythm Respiratory: Yes: WNL, Regular, CTA Bilaterally Gastrointestinal: Yes: WNL, Normal Bowel Sounds, Soft Integumentary: Yes: Other ((+) rt buttock erythema) Labs: CBC, BMP 07/12/20 07:00 07/12/20 07:00 INR, PTT INR 0.92 (0.83-1.09) 07/08/20 15:23 Problem List - Problems (1) Abscess Assessment/Plan: S/P I&D Code(s): L02.91 - CUTANEOUS ABSCESS, UNSPECIFIED (2) Acute kidney injury superimposed on CKD Code(s): N17.9 - ACUTE KIDNEY FAILURE, UNSPECIFIED; N18.9 - CHRONIC KIDNEY DISEASE, UNSPECIFIED (3) CAD (coronary artery disease) Code(s): I25.10 - ATHSCL HEART DISEASE OF [place] CORONARY ARTERY W/O ANG PCTRS Qualifiers: (4) HIV disease Code(s): B20 - HUMAN IMMUNODEFICIENCY VIRUS [HIV] DISEASE (5) Hypothyroid Code(s): E03.9 - HYPOTHYROIDISM, UNSPECIFIED Qualifiers:
[2020-07-12] MEDS: oxyCODONE HCL 5 MG TABLET PO PRN (22:26)
[2020-07-12] MEDS: ROSUVASTATIN CA 20 MG TABLET (FP) PO SCH (22:26)
[2020-07-12] MEDS ORDERED: BISACODYL 5 MG TABLET.DR (FP) PO ONE (22:30)
[2020-07-13] MEDS: CLINDAMYCIN HCL 150 MG CAPSULE (FP) PO SCH ×3 (06:55→17:42)
[2020-07-13] MEDS: INSULIN (LEVEMIR) 100 UNITS/ML UNITS SQ SCH (06:55)
[2020-07-13] MEDS: LEVOTHYROXINE NA 50 MCG TABLET (FP) PO SCH (06:55)
[2020-07-13] MEDS: INSULIN SLIDING SCALE (NOVOLOG) 1 VIAL SQ SCH ×4 (06:55→21:26)
[2020-07-13] MEDS ORDERED: PT OWN MED DRAWER 7, Y5N ONE (09:33)
[2020-07-13] MEDS: POLYETHYLENE GLYCOL 3350 255 GM BTL PO SCH ×2 (10:36→21:30)
[2020-07-13] MEDS: ASPIRIN COATED 81 MG TABLET.EC PO SCH (10:36)
[2020-07-13] MEDS: CLOPIDOGREL BISULFATE 75 MG TABLET (FP) PO SCH (10:36)
[2020-07-13] MEDS: HEPARIN NA (PORCINE) 5,000 UNITS/ML 1ML VIAL SQ SCH ×2 (10:36→21:25)
[2020-07-13] MEDS: CARVEDILOL 3.125 MG TABLET (FP) PO SCH ×2 (10:36→21:25)
[2020-07-13] MEDS: FUROSEMIDE 20 MG TABLET (FP) PO SCH (10:36)
[2020-07-13] MEDS: EMTRICITAB/RILPIVIRI/TENOF ALA (ODEFSEY) TABLET PO SCH (10:36)
[2020-07-13] MEDS: TIMOLOL 0.5% OPHTHALMIC SOL 5 ML BOTTLE OU SCH ×2 (10:37→21:27)
[2020-07-13] MEDS: BRIMONIDINE TARTRATE 0.2% OPHTHALMIC 5 ML BOTTLE OU SCH ×2 (10:37→21:27)
--- NOTE | 2020-07-13 12:25 | PN ---
Progress Note, Physician History of Present Illness: stable no new issues - Current Medication List Current Medications: Active Medications Acetaminophen (Tylenol -) 650 mg PO Q6H PRN PRN Reason: FEVER Aspirin (Ecotrin -) 81 mg PO DAILY [facility] Last Admin: 07/13/20 10:36 Dose: 81 mg Documented by: Brimonidine Tartrate (Alphagan 0.2% -) 1 drop OU BID [facility] Last Admin: 07/13/20 10:37 Dose: 1 drop Documented by: Carvedilol (Coreg -) 3.125 mg PO BID [facility] Last Admin: 07/13/20 10:36 Dose: 3.125 mg Documented by: Clindamycin HCl (Cleocin -) 300 mg PO Q6HPO [facility] Last Admin: 07/13/20 06:55 Dose: 300 mg Documented by: Clopidogrel Bisulfate (Plavix -) 75 mg PO DAILY [facility] Last Admin: 07/13/20 10:36 Dose: 75 mg Documented by: Fentanyl (Sublimaze Injection -) 50 mcg IVPUSH [id number] PRN PRN Reason: PAIN-PACU ORDER X 4 DOSES ONLY Furosemide (Lasix -) 20 mg PO DAILY [facility] Last Admin: 07/13/20 10:36 Dose: 20 mg Documented by: Heparin Sodium (Porcine) (Heparin -) 5,000 unit SQ BID [facility] Last Admin: 07/13/20 10:36 Dose: 5,000 unit Documented by: Insulin Aspart (Novolog Vial Sliding Scale -) 1 vial SQ [facility]; Protocol Last Admin: 07/13/20 06:55 Dose: Not Given Documented by: Insulin Detemir (Levemir Vial) 65 units SQ AM [facility] Last Admin: 07/13/20 06:55 Dose: 65 units Documented by: Levothyroxine Sodium (Synthroid -) 50 mcg PO DAILY@0700 [facility] Last Admin: 07/13/20 06:55 Dose: 50 mcg Documented by: Ondansetron HCl (Zofran Injection) 4 mg IVPUSH Q6H PRN PRN Reason: NAUSEA AND/OR VOMITING Polyethylene Glycol (Miralax (For Bowel Prep) -) 17 gm PO BID [facility] Last Admin: 07/13/20 10:36 Dose: 17 gm Documented by: Rosuvastatin Calcium (Crestor -) 20 mg PO HS [facility] Last Admin: 07/12/20 22:26 Dose: 20 mg Documented by: Timolol Maleate (Timoptic 0.5%) 1 drop OU BID [facility] Last Admin: 07/13/20 10:37 Dose: 1 drop Documented by: - Objective Vital Signs: Vital Signs Temperature 98.5 F 07/13/20 06:03 Pulse Rate 72 07/13/20 06:03 Respiratory Rate 07/13/20 06:03 Blood Pressure 133/88 07/13/20 06:03 O2 Sat by Pulse Oximetry (%) 97 07/13/20 06:03 Constitutional: Yes: No Distress, Calm Cardiovascular: Yes: S1, S2 Respiratory: Yes: Regular, CTA Bilaterally Gastrointestinal: Yes: Normal Bowel Sounds, Soft Musculoskeletal: Yes: WNL Extremities: Yes: WNL Wound/Incision: Yes: Clean/Dry Neurological: Yes: Alert, Oriented Psychiatric: Yes: Alert, Oriented Labs: CBC, BMP 07/12/20 07:00 07/12/20 07:00 INR, PTT INR 0.92 (0.83-1.09) 07/08/20 15:23 Assessment/Plan Problem List - Problems (1) Abscess Code(s): L02.91 - CUTANEOUS ABSCESS, UNSPECIFIED (2) Uncontrolled diabetes mellitus Code(s): E11.65 - TYPE 2 DIABETES MELLITUS WITH HYPERGLYCEMIA Qualifiers: Diabetes mellitus type: type 2 Glycemic state: with hyperglycemia Qualified Code(s): E11.65 - Type 2 diabetes mellitus with hyperglycemia (3) CAD (coronary artery disease) Code(s): I25.10 - ATHSCL HEART DISEASE OF [place] CORONARY ARTERY W/O ANG PCTRS Qualifiers: (4) CKD (chronic kidney disease) Code(s): N18.9 - CHRONIC KIDNEY DISEASE, UNSPECIFIED Qualifiers: (5) HIV disease Code(s): B20 - HUMAN IMMUNODEFICIENCY VIRUS [HIV] DISEASE (6) Hypothyroid Code(s): E03.9 - HYPOTHYROIDISM, UNSPECIFIED Qualifiers: plan continue oral abx for couple of days rest as per the team
--- NOTE | 2020-07-13 16:12 | PN ---
Progress Note, Physician History of Present Illness: Pt seen and examined at bedside. She is awake and alert. She denies dysuria or hematuria. - Current Medication List Current Medications: Active Medications Acetaminophen (Tylenol -) 650 mg PO Q6H PRN PRN Reason: FEVER Aspirin (Ecotrin -) 81 mg PO DAILY [facility] Last Admin: 07/13/20 10:36 Dose: 81 mg Documented by: Brimonidine Tartrate (Alphagan 0.2% -) 1 drop OU BID [facility] Last Admin: 07/13/20 10:37 Dose: 1 drop Documented by: Carvedilol (Coreg -) 3.125 mg PO BID [facility] Last Admin: 07/13/20 10:36 Dose: 3.125 mg Documented by: Clindamycin HCl (Cleocin -) 300 mg PO Q6HPO [facility] Last Admin: 07/13/20 14:02 Dose: 300 mg Documented by: Clopidogrel Bisulfate (Plavix -) 75 mg PO DAILY [facility] Last Admin: 07/13/20 10:36 Dose: 75 mg Documented by: Fentanyl (Sublimaze Injection -) 50 mcg IVPUSH [id number] PRN PRN Reason: PAIN-PACU ORDER X 4 DOSES ONLY Furosemide (Lasix -) 20 mg PO DAILY [facility] Last Admin: 07/13/20 10:36 Dose: 20 mg Documented by: Heparin Sodium (Porcine) (Heparin -) 5,000 unit SQ BID [facility] Last Admin: 07/13/20 10:36 Dose: 5,000 unit Documented by: Insulin Aspart (Novolog Vial Sliding Scale -) 1 vial SQ [facility]; Protocol Last Admin: 07/13/20 13:13 Dose: Not Given Documented by: Insulin Detemir (Levemir Vial) 65 units SQ AM [facility] Last Admin: 07/13/20 06:55 Dose: 65 units Documented by: Levothyroxine Sodium (Synthroid -) 50 mcg PO DAILY@0700 [facility] Last Admin: 07/13/20 06:55 Dose: 50 mcg Documented by: Ondansetron HCl (Zofran Injection) 4 mg IVPUSH Q6H PRN PRN Reason: NAUSEA AND/OR VOMITING Polyethylene Glycol (Miralax (For Bowel Prep) -) 17 gm PO BID [facility] Last Admin: 07/13/20 10:36 Dose: 17 gm Documented by: Rosuvastatin Calcium (Crestor -) 20 mg PO HS [facility] Last Admin: 07/12/20 22:26 Dose: 20 mg Documented by: Timolol Maleate (Timoptic 0.5%) 1 drop OU BID [facility] Last Admin: 07/13/20 10:37 Dose: 1 drop Documented by: - Objective Vital Signs: Vital Signs Temperature 99.0 F 07/13/20 10:00 Pulse Rate 77 07/13/20 10:00 Respiratory Rate 18 07/13/20 10:00 Blood Pressure 136/82 07/13/20 10:00 O2 Sat by Pulse Oximetry (%) 98 07/13/20 10:00 Constitutional: Yes: Calm Eyes: Yes: Conjunctiva Clear HENT: Yes: Atraumatic Neck: Yes: Supple Cardiovascular: Yes: S1, S2 Respiratory: Yes: CTA Bilaterally Gastrointestinal: Yes: Soft Genitourinary: Yes: WNL Musculoskeletal: Yes: WNL Edema: No Neurological: Yes: Oriented Psychiatric: Yes: Oriented Labs: CBC, BMP 07/12/20 07:00 07/12/20 07:00 INR, PTT INR 0.92 (0.83-1.09) 07/08/20 15:23 Problem List - Problems (1) Abscess Code(s): L02.91 - CUTANEOUS ABSCESS, UNSPECIFIED (2) CKD (chronic kidney disease) Code(s): N18.9 - CHRONIC KIDNEY DISEASE, UNSPECIFIED Qualifiers: Assessment/Plan Current Medications Generic Name Dose Route Start Last Admin Trade Name Freq PRN Reason Stop Dose Admin Acetaminophen 650 mg 07/10/20 11:56 Tylenol - PO Q6H PRN FEVER Aspirin 81 mg 07/11/20 10:00 07/13/20 10:36 Ecotrin - PO 81 mg DAILY [facility] Administration Brimonidine Tartrate 1 drop 07/10/20 22:00 07/13/20 10:37 Alphagan 0.2% - OU 1 drop BID [facility] Administration Carvedilol 3.125 mg 07/10/20 22:00 07/13/20 10:36 Coreg - PO 3.125 mg BID [facility] Administration Clindamycin HCl 300 mg 07/12/20 18:00 07/13/20 14:02 Cleocin - PO 300 mg Q6HPO [facility] Administration Clopidogrel Bisulfate 75 mg 07/11/20 10:00 07/13/20 10:36 Plavix - PO 75 mg DAILY [facility] Administration Fentanyl 50 mcg 07/10/20 11:56 Sublimaze Injection - IVPUSH [id number] PRN PAIN-PACU ORDER X 4 DOSES ONLY Furosemide 20 mg 07/11/20 10:00 07/13/20 10:36 Lasix - PO 20 mg DAILY [facility] Administration Heparin Sodium (Porcine) 5,000 unit 07/10/20 22:00 07/13/20 10:36 Heparin - SQ 5,000 unit BID [facility] Administration Insulin Aspart 1 vial 07/10/20 16:30 07/13/20 13:13 Novolog Vial Sliding Scale - SQ Not Given ACHS [facility] Protocol Insulin Detemir 65 units 07/11/20 07:00 07/13/20 06:55 Levemir Vial SQ 65 units AM [facility] Administration Levothyroxine Sodium 50 mcg 07/11/20 07:00 07/13/20 06:55 Synthroid - PO 50 mcg DAILY@0700 [facility] Administration Ondansetron HCl 4 mg 07/10/20 11:56 Zofran Injection IVPUSH Q6H PRN NAUSEA AND/OR VOMITING Polyethylene Glycol 17 gm 07/11/20 22:00 07/13/20 10:36 Miralax (For Bowel Prep) - PO 17 gm BID [facility] Administration Rosuvastatin Calcium 20 mg 07/10/20 22:00 07/12/20 22:26 Crestor - PO 20 mg HS [facility] Administration Timolol Maleate 1 drop 07/10/20 22:00 07/13/20 10:37 Timoptic 0.5% OU 1 drop BID [facility] Administration Impression 1. ckd 2. left renal complex cyst 3. hld 4. HIV 5. cad 6. constipation 7. buttocks abscess Plan - will reorder renal ultrasound - renal function stable - cont po lasix - repeat labs in am - monitor volume status
--- NOTE | 2020-07-13 16:48 | PN ---
Progress Note, Physician History of Present Illness: doing well - Current Medication List Current Medications: Active Medications Acetaminophen (Tylenol -) 650 mg PO Q6H PRN PRN Reason: FEVER Aspirin (Ecotrin -) 81 mg PO DAILY [facility] Last Admin: 07/13/20 10:36 Dose: 81 mg Documented by: Brimonidine Tartrate (Alphagan 0.2% -) 1 drop OU BID [facility] Last Admin: 07/13/20 10:37 Dose: 1 drop Documented by: Carvedilol (Coreg -) 3.125 mg PO BID [facility] Last Admin: 07/13/20 10:36 Dose: 3.125 mg Documented by: Clindamycin HCl (Cleocin -) 300 mg PO Q6HPO [facility] Last Admin: 07/13/20 14:02 Dose: 300 mg Documented by: Clopidogrel Bisulfate (Plavix -) 75 mg PO DAILY [facility] Last Admin: 07/13/20 10:36 Dose: 75 mg Documented by: Fentanyl (Sublimaze Injection -) 50 mcg IVPUSH [id number] PRN PRN Reason: PAIN-PACU ORDER X 4 DOSES ONLY Furosemide (Lasix -) 20 mg PO DAILY [facility] Last Admin: 07/13/20 10:36 Dose: 20 mg Documented by: Heparin Sodium (Porcine) (Heparin -) 5,000 unit SQ BID [facility] Last Admin: 07/13/20 10:36 Dose: 5,000 unit Documented by: Insulin Aspart (Novolog Vial Sliding Scale -) 1 vial SQ [facility]; Protocol Last Admin: 07/13/20 13:13 Dose: Not Given Documented by: Insulin Detemir (Levemir Vial) 65 units SQ AM [facility] Last Admin: 07/13/20 06:55 Dose: 65 units Documented by: Levothyroxine Sodium (Synthroid -) 50 mcg PO DAILY@0700 [facility] Last Admin: 07/13/20 06:55 Dose: 50 mcg Documented by: Ondansetron HCl (Zofran Injection) 4 mg IVPUSH Q6H PRN PRN Reason: NAUSEA AND/OR VOMITING Polyethylene Glycol (Miralax (For Bowel Prep) -) 17 gm PO BID [facility] Last Admin: 07/13/20 10:36 Dose: 17 gm Documented by: Rosuvastatin Calcium (Crestor -) 20 mg PO HS [facility] Last Admin: 07/12/20 22:26 Dose: 20 mg Documented by: Timolol Maleate (Timoptic 0.5%) 1 drop OU BID [facility] Last Admin: 07/13/20 10:37 Dose: 1 drop Documented by: - Objective Vital Signs: Vital Signs Temperature 99.0 F 07/13/20 10:00 Pulse Rate 77 07/13/20 10:00 Respiratory Rate 18 07/13/20 10:00 Blood Pressure 136/82 07/13/20 10:00 O2 Sat by Pulse Oximetry (%) 98 07/13/20 10:00 Constitutional: Yes: No Distress HENT: Yes: Atraumatic Neck: Yes: Supple Cardiovascular: Yes: Regular Rate and Rhythm Respiratory: Yes: CTA Bilaterally Gastrointestinal: Yes: Normal Bowel Sounds Extremities: Yes: Other (R buttock abcess L thigh abcess) Neurological: Yes: Alert, Oriented Labs: CBC, BMP 07/12/20 07:00 07/12/20 07:00 INR, PTT INR 0.92 (0.83-1.09) 07/08/20 15:23 Problem List - Problems (1) Abscess Assessment/Plan: s/p I and D on abx id consult Code(s): L02.91 - CUTANEOUS ABSCESS, UNSPECIFIED (2) Uncontrolled diabetes mellitus Assessment/Plan: insulin bgms Code(s): E11.65 - TYPE 2 DIABETES MELLITUS WITH HYPERGLYCEMIA Qualifiers: Diabetes mellitus type: type 2 Glycemic state: with hyperglycemia Qualified Code(s): E11.65 - Type 2 diabetes mellitus with hyperglycemia (3) CAD (coronary artery disease) Code(s): I25.10 - ATHSCL HEART DISEASE OF [place] CORONARY ARTERY W/O ANG PCTRS Qualifiers: (4) CKD (chronic kidney disease) Assessment/Plan: renal consult reviewed Code(s): N18.9 - CHRONIC KIDNEY DISEASE, UNSPECIFIED Qualifiers: (5) HIV disease Assessment/Plan: on meds continue Code(s): B20 - HUMAN IMMUNODEFICIENCY VIRUS [HIV] DISEASE (6) Hypothyroid Assessment/Plan: meds Code(s): E03.9 - HYPOTHYROIDISM, UNSPECIFIED Qualifiers:
[2020-07-13] MEDS ORDERED: INSULIN (NOVOLOG) ASPART 100 UNITS/ML 10ML VIAL ONE (21:10)
[2020-07-13] MEDS: ROSUVASTATIN CA 20 MG TABLET (FP) PO SCH (21:30)
[2020-07-13] MEDS ORDERED: traMADol HCL 50 MG TABLET PO ONE (22:44)
[2020-07-14] MEDS: CLINDAMYCIN HCL 150 MG CAPSULE (FP) PO SCH ×3 (01:05→12:34)
[2020-07-14] MEDS: INSULIN (LEVEMIR) 100 UNITS/ML UNITS SQ SCH (06:43)
[2020-07-14] MEDS: INSULIN SLIDING SCALE (NOVOLOG) 1 VIAL SQ SCH ×2 (06:43→11:31)
[2020-07-14] MEDS: LEVOTHYROXINE NA 50 MCG TABLET (FP) PO SCH (06:43)
[2020-07-14 07:59] LABS: ALBUMIN 2.6 g/dl (3.4-5.0); BILIRUBIN,TOTAL 0.4 mg/dL (0.2-1); BLOOD UREA NITROGEN 30.3 mg/dL (7-18); CREATININE 1.4 mg/dL (0.55-1.3); POTASSIUM 4.7 mmol/L (3.5-5.1); TOT PROT 6.9 g/dl (6.4-8.2)
[2020-07-14] MEDS: HEPARIN NA (PORCINE) 5,000 UNITS/ML 1ML VIAL SQ SCH (10:58)
[2020-07-14] MEDS: POLYETHYLENE GLYCOL 3350 255 GM BTL PO SCH (10:58)
[2020-07-14] MEDS: FUROSEMIDE 20 MG TABLET (FP) PO SCH (10:58)
[2020-07-14] MEDS: CARVEDILOL 3.125 MG TABLET (FP) PO SCH (10:58)
[2020-07-14] MEDS: CLOPIDOGREL BISULFATE 75 MG TABLET (FP) PO SCH (10:58)
[2020-07-14] MEDS: EMTRICITAB/RILPIVIRI/TENOF ALA (ODEFSEY) TABLET PO SCH (10:58)
[2020-07-14] MEDS: ASPIRIN COATED 81 MG TABLET.EC PO SCH (10:58)
[2020-07-14] MEDS: TIMOLOL 0.5% OPHTHALMIC SOL 5 ML BOTTLE OU SCH (10:59)
[2020-07-14] MEDS: BRIMONIDINE TARTRATE 0.2% OPHTHALMIC 5 ML BOTTLE OU SCH (10:59)
--- NOTE | 2020-07-14 11:53 | PN ---
Progress Note, Physician History of Present Illness: stable no new issues - Current Medication List Current Medications: Active Medications Acetaminophen (Tylenol -) 650 mg PO Q6H PRN PRN Reason: FEVER Aspirin (Ecotrin -) 81 mg PO DAILY [facility] Last Admin: 07/14/20 10:58 Dose: 81 mg Documented by: Brimonidine Tartrate (Alphagan 0.2% -) 1 drop OU BID [facility] Last Admin: 07/14/20 10:59 Dose: 1 drop Documented by: Carvedilol (Coreg -) 3.125 mg PO BID [facility] Last Admin: 07/14/20 10:58 Dose: 3.125 mg Documented by: Clindamycin HCl (Cleocin -) 300 mg PO Q6HPO [facility] Last Admin: 07/14/20 06:43 Dose: 300 mg Documented by: Clopidogrel Bisulfate (Plavix -) 75 mg PO DAILY [facility] Last Admin: 07/14/20 10:58 Dose: 75 mg Documented by: Fentanyl (Sublimaze Injection -) 50 mcg IVPUSH [id number] PRN PRN Reason: PAIN-PACU ORDER X 4 DOSES ONLY Furosemide (Lasix -) 20 mg PO DAILY [facility] Last Admin: 07/14/20 10:58 Dose: 20 mg Documented by: Heparin Sodium (Porcine) (Heparin -) 5,000 unit SQ BID [facility] Last Admin: 07/14/20 10:58 Dose: 5,000 unit Documented by: Insulin Aspart (Novolog Vial Sliding Scale -) 1 vial SQ [facility]; Protocol Last Admin: 07/14/20 11:31 Dose: Not Given Documented by: Insulin Detemir (Levemir Vial) 65 units SQ AM [facility] Last Admin: 07/14/20 06:43 Dose: 65 units Documented by: Levothyroxine Sodium (Synthroid -) 50 mcg PO DAILY@0700 [facility] Last Admin: 07/14/20 06:43 Dose: 50 mcg Documented by: Ondansetron HCl (Zofran Injection) 4 mg IVPUSH Q6H PRN PRN Reason: NAUSEA AND/OR VOMITING Polyethylene Glycol (Miralax (For Bowel Prep) -) 17 gm PO BID [facility] Last Admin: 07/14/20 10:58 Dose: 17 gm Documented by: Rosuvastatin Calcium (Crestor -) 20 mg PO HS [facility] Last Admin: 07/13/20 21:30 Dose: 20 mg Documented by: Timolol Maleate (Timoptic 0.5%) 1 drop OU BID [facility] Last Admin: 07/14/20 10:59 Dose: 1 drop Documented by: - Objective Vital Signs: Vital Signs Temperature 99 F 07/14/20 06:00 Pulse Rate 85 07/14/20 06:00 Respiratory Rate 18 07/14/20 06:00 Blood Pressure 129/84 07/14/20 06:00 O2 Sat by Pulse Oximetry (%) 99 07/14/20 06:00 Constitutional: Yes: No Distress, Calm Cardiovascular: Yes: S1, S2 Respiratory: Yes: Regular, CTA Bilaterally Gastrointestinal: Yes: Normal Bowel Sounds, Soft Musculoskeletal: Yes: WNL Extremities: Yes: WNL Neurological: Yes: Alert, Oriented Psychiatric: Yes: Alert, Oriented Labs: CBC, BMP 07/12/20 07:00 07/14/20 06:28 INR, PTT INR 0.92 (0.83-1.09) 07/08/20 15:23 Assessment/Plan Problem List - Problems (1) Abscess Code(s): L02.91 - CUTANEOUS ABSCESS, UNSPECIFIED (2) Uncontrolled diabetes mellitus Code(s): E11.65 - TYPE 2 DIABETES MELLITUS WITH HYPERGLYCEMIA Qualifiers: Diabetes mellitus type: type 2 Glycemic state: with hyperglycemia Qualified Code(s): E11.65 - Type 2 diabetes mellitus with hyperglycemia (3) CAD (coronary artery disease) Code(s): I25.10 - ATHSCL HEART DISEASE OF [place] CORONARY ARTERY W/O ANG PCTRS Qualifiers: (4) CKD (chronic kidney disease) Code(s): N18.9 - CHRONIC KIDNEY DISEASE, UNSPECIFIED Qualifiers: (5) HIV disease Code(s): B20 - HUMAN IMMUNODEFICIENCY VIRUS [HIV] DISEASE (6) Hypothyroid Code(s): E03.9 - HYPOTHYROIDISM, UNSPECIFIED Qualifiers: plan continue oral abx for couple of days rest as per the team
--- NOTE | 2020-07-14 12:36 | PN ---
Progress Note, Physician History of Present Illness: Pt seen and examined at bedside. She is awake and appears comfortable. She denies shortness of breath. - Current Medication List Current Medications: Active Medications Acetaminophen (Tylenol -) 650 mg PO Q6H PRN PRN Reason: FEVER Aspirin (Ecotrin -) 81 mg PO DAILY [facility] Last Admin: 07/14/20 10:58 Dose: 81 mg Documented by: Brimonidine Tartrate (Alphagan 0.2% -) 1 drop OU BID [facility] Last Admin: 07/14/20 10:59 Dose: 1 drop Documented by: Carvedilol (Coreg -) 3.125 mg PO BID [facility] Last Admin: 07/14/20 10:58 Dose: 3.125 mg Documented by: Clindamycin HCl (Cleocin -) 300 mg PO Q6HPO [facility] Last Admin: 07/14/20 06:43 Dose: 300 mg Documented by: Clopidogrel Bisulfate (Plavix -) 75 mg PO DAILY [facility] Last Admin: 07/14/20 10:58 Dose: 75 mg Documented by: Fentanyl (Sublimaze Injection -) 50 mcg IVPUSH [id number] PRN PRN Reason: PAIN-PACU ORDER X 4 DOSES ONLY Furosemide (Lasix -) 20 mg PO DAILY [facility] Last Admin: 07/14/20 10:58 Dose: 20 mg Documented by: Heparin Sodium (Porcine) (Heparin -) 5,000 unit SQ BID [facility] Last Admin: 07/14/20 10:58 Dose: 5,000 unit Documented by: Insulin Aspart (Novolog Vial Sliding Scale -) 1 vial SQ [facility]; Protocol Last Admin: 07/14/20 11:31 Dose: Not Given Documented by: Insulin Detemir (Levemir Vial) 65 units SQ AM [facility] Last Admin: 07/14/20 06:43 Dose: 65 units Documented by: Levothyroxine Sodium (Synthroid -) 50 mcg PO DAILY@0700 [facility] Last Admin: 07/14/20 06:43 Dose: 50 mcg Documented by: Ondansetron HCl (Zofran Injection) 4 mg IVPUSH Q6H PRN PRN Reason: NAUSEA AND/OR VOMITING Polyethylene Glycol (Miralax (For Bowel Prep) -) 17 gm PO BID [facility] Last Admin: 07/14/20 10:58 Dose: 17 gm Documented by: Rosuvastatin Calcium (Crestor -) 20 mg PO HS [facility] Last Admin: 07/13/20 21:30 Dose: 20 mg Documented by: Timolol Maleate (Timoptic 0.5%) 1 drop OU BID [facility] Last Admin: 07/14/20 10:59 Dose: 1 drop Documented by: - Objective Vital Signs: Vital Signs Temperature 99 F 07/14/20 06:00 Pulse Rate 85 07/14/20 06:00 Respiratory Rate 18 07/14/20 06:00 Blood Pressure 129/84 07/14/20 06:00 O2 Sat by Pulse Oximetry (%) 99 07/14/20 06:00 Constitutional: Yes: Calm Eyes: Yes: Conjunctiva Clear HENT: Yes: Atraumatic Neck: Yes: Supple Cardiovascular: Yes: S1, S2 Respiratory: Yes: CTA Bilaterally Gastrointestinal: Yes: Soft Genitourinary: Yes: WNL Musculoskeletal: Yes: WNL Edema: No Neurological: Yes: Oriented Psychiatric: Yes: Oriented Labs: CBC, BMP 07/12/20 07:00 07/14/20 06:28 INR, PTT INR 0.92 (0.83-1.09) 07/08/20 15:23 Problem List - Problems (1) Abscess Code(s): L02.91 - CUTANEOUS ABSCESS, UNSPECIFIED (2) CKD (chronic kidney disease) Code(s): N18.9 - CHRONIC KIDNEY DISEASE, UNSPECIFIED Qualifiers: Assessment/Plan Current Medications Generic Name Dose Route Start Last Admin Trade Name Freq PRN Reason Stop Dose Admin Acetaminophen 650 mg 07/10/20 11:56 Tylenol - PO Q6H PRN FEVER Aspirin 81 mg 07/11/20 10:00 07/14/20 10:58 Ecotrin - PO 81 mg DAILY [facility] Administration Brimonidine Tartrate 1 drop 07/10/20 22:00 07/14/20 10:59 Alphagan 0.2% - OU 1 drop BID [facility] Administration Carvedilol 3.125 mg 07/10/20 22:00 07/14/20 10:58 Coreg - PO 3.125 mg BID [facility] Administration Clindamycin HCl 300 mg 07/12/20 18:00 07/14/20 06:43 Cleocin - PO 300 mg Q6HPO [facility] Administration Clopidogrel Bisulfate 75 mg 07/11/20 10:00 07/14/20 10:58 Plavix - PO 75 mg DAILY [facility] Administration Fentanyl 50 mcg 07/10/20 11:56 Sublimaze Injection - IVPUSH [id number] PRN PAIN-PACU ORDER X 4 DOSES ONLY Furosemide 20 mg 07/11/20 10:00 07/14/20 10:58 Lasix - PO 20 mg DAILY [facility] Administration Heparin Sodium (Porcine) 5,000 unit 07/10/20 22:00 07/14/20 10:58 Heparin - SQ 5,000 unit BID [facility] Administration Insulin Aspart 1 vial 07/10/20 16:30 07/14/20 11:31 Novolog Vial Sliding Scale - SQ Not Given ACHS [facility] Protocol Insulin Detemir 65 units 07/11/20 07:00 07/14/20 06:43 Levemir Vial SQ 65 units AM [facility] Administration Levothyroxine Sodium 50 mcg 07/11/20 07:00 07/14/20 06:43 Synthroid - PO 50 mcg DAILY@0700 [facility] Administration Ondansetron HCl 4 mg 07/10/20 11:56 Zofran Injection IVPUSH Q6H PRN NAUSEA AND/OR VOMITING Polyethylene Glycol 17 gm 07/11/20 22:00 07/14/20 10:58 Miralax (For Bowel Prep) - PO 17 gm BID [facility] Administration Rosuvastatin Calcium 20 mg 07/10/20 22:00 07/13/20 21:30 Crestor - PO 20 mg HS [facility] Administration Timolol Maleate 1 drop 07/10/20 22:00 07/14/20 10:59 Timoptic 0.5% OU 1 drop BID [facility] Administration Impression 1. ckd 2. left renal complex cyst 3. hld 4. HIV 5. cad 6. constipation 7. buttocks abscess Plan - renal ultrasound reviewed - cont lasix - will need outpt follow up - pt says he will follow with urology as outpt for renal cyst that was seen on ct scan - avoid nsaids
--- NOTE | 2020-07-14 14:05 | DS ---
Physical Examination Vital Signs: Vital Signs Temperature 99.2 F 07/14/20 10:00 Pulse Rate 87 07/14/20 10:00 Respiratory Rate 18 07/14/20 10:00 Blood Pressure 131/79 07/14/20 10:00 O2 Sat by Pulse Oximetry (%) 99 07/14/20 10:00 Constitutional: Yes: No Distress HENT: Yes: Atraumatic Neck: Yes: Supple Cardiovascular: Yes: Regular Rate and Rhythm Respiratory: Yes: CTA Bilaterally Gastrointestinal: Yes: Normal Bowel Sounds Extremities: Yes: WNL, Other (L thigh/R buttock abcesses are healing) Labs: CBC, BMP 07/12/20 07:00 07/14/20 06:28 Discharge Summary Problems reviewed: Yes Reason For Visit: ABSCESS,UNCONTROLLED DIABETES MELLITUS Current Active Problems Abscess (Acute) Opioid use disorder, mild, abuse (Acute) Uncontrolled diabetes mellitus (Acute) Condition: Stable - Instructions Diet, Activity, Other Instructions: see your pmd 3-5 days for follow up see your kidney doctor see your diabetes doctor Referrals: Jillian Cuello MD [Staff Physician] - Disposition: VNS/HOME HEALTH CARE - Home Medications Comprehensive Discharge Medication List: Ambulatory Orders Brimonidine Tartrate/Timolol [Combigan 0.2%-0.5% Eye Drops] 1 drop OU BID 11/27/19 Carvedilol [Coreg -] 3.125 mg PO BID 11/27/19 Clopidogrel Bisulfate [Clopidogrel] 75 mg PO DAILY 11/27/19 Dulaglutide [Trulicity] 1.5 mg SQ WEEKLY MDD on 11/27/19 Insulin Glargine,Hum.rec.anlog [Basaglar Kwikpen U-100] 65 unit SQ AM 11/27/19 Levothyroxine [Synthroid -] 50 mcg PO DAILY 11/27/19 Rosuvastatin [Crestor -] 20 mg PO HS 11/27/19 Travoprost [Travatan Z] 1 drop OU HS 11/27/19 Emtricitab/Rilpiviri/Tenof Ala [Odefsey Tablet] 1 each PO DAILY 12/05/19 Aspirin Coated [Ecotrin -] 81 mg PO DAILY 01/27/20 Furosemide [Lasix] 20 mg PO DAILY 01/27/20 Hydroxyzine HCl 50 mg PO HS 01/27/20 Multivitamins [Multivit ([facility] Formul[facility])] 1 tab PO DAILY 01/27/20 Clindamycin [Cleocin -] 300 mg PO Q6HPO #8 capsule 07/13/20 [place] home fu with pmd and other doctors
[2020-07-14 14:57] VITALS: BP 141/69; PULSE 79; TEMP 98.7
--- NOTE | 2020-07-21 13:11 | OP ---
DATE OF OPERATION: 07/10/2020 PREOPERATIVE DIAGNOSIS: Soft tissue abscess of the right buttock and posterior thigh. POSTOPERATIVE DIAGNOSIS: Soft tissue abscess of the right buttock and posterior thigh. PROCEDURE: Incision and drainage of abscess. SURGEON: Willy Mendiola MD TYING MACHINE OPERATOR LUMBER: ANESTHESIA: General. OPERATIVE FINDINGS: There was a soft tissue abscess of the right buttock posterior thigh just at the infragluteal crease. This was not clinically a [id number], and the rest of the findings were unremarkable. DESCRIPTION OF PROCEDURE: The patient was placed on the operating room table in supine position, and after the induction of general anesthesia, the patient was turned to the left lateral decubitus position. The area over the abscess in question was prepped and draped with Betadine. A time-out was taken. An incision was made with a scalpel and taken down through skin and subcutaneous tissue. Purulent drainage was sent for culture and sensitivity. Extensive irrigation was carried out with normal saline and hemostasis secured with electrocautery and the wound packed with 1/2-inch iodoform gauze followed by dry, sterile dressings. The procedure was terminated at this point and the patient aroused from general anesthesia and transferred to the post anesthesia care unit in stable condition awake and alert. ESTIMATED BLOOD LOSS: 5 mL. REPLACEMENTS: Crystalloid. DRAINS: None. SPECIMENS: Purulent drainage to Microbiology for culture and sensitivity. I, Willy Mendiola, was physically present in the operating room from the time the patient was placed on the operating room table until she was transferred to the post anesthesia care unit in [employer]. MD BETSEY [id number] MTDD
== END 2020-07-14 15:56 | disposition home health service (06) | DRG 603 ==
LOC: JER 14:23 → JERBED 19:04 → J7W 07-09 01:12
PROVIDERS: ADMIT Internal Medicine; ATTEND Internal Medicine
PROC: 0J9L0ZX Drainage of Right Upper Leg Subcutaneous Tissue and Fascia, Open Approach, Diagnostic (ICD-10-PCS; 2020-07-10)
PROC: 0J990ZX Drainage of Buttock Subcutaneous Tissue and Fascia, Open Approach, Diagnostic (ICD-10-PCS; principal; 2020-07-10 10:00)
DX: L02.31 Cutaneous abscess of buttock (principal); N17.9 Acute kidney failure, unspecified; L02.415 Cutaneous abscess of right lower limb; E78.5 Hyperlipidemia, unspecified; I25.10 Atherosclerotic heart disease of native coronary artery without angina pectoris; K59.00 Constipation, unspecified; I13.10 Hypertensive heart and chronic kidney disease without heart failure, with stage 1 through stage 4 chronic kidney disease, or unspecified chronic kidney disease; Z21 Asymptomatic human immunodeficiency virus [HIV] infection status; N18.9 Chronic kidney disease, unspecified; N28.1 Cyst of kidney, acquired; E11.65 Type 2 diabetes mellitus with hyperglycemia; E03.9 Hypothyroidism, unspecified; E66.9 Obesity, unspecified; Z68.31 Body mass index [BMI] 31.0-31.9, adult; F14.90 Cocaine use, unspecified, uncomplicated; F11.90 Opioid use, unspecified, uncomplicated
CPT/HCPCS: 36415; 71046-TC-FY; 74176-TC; 76775-TC; 80048; 80053; 82962; 84443; 85025; 85610; 85730; 87040; 87070; 87077; 87205; 93005; 93010; 94760; 99285-25; J1644; U0003

== ENCOUNTER 2020-08-21 17:41 | Emergency (ER) | payer OTHER ==
[2020-08-21 18:01] VITALS: BP 134/77; PULSE 105; TEMP 98.6; BMI 34.9
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
--- NOTE | 2020-08-21 19:54 | PDOC ---
History of Present Illness - General Chief Complaint: Edema Stated Complaint: SWOLLEN FEET Time Seen by Provider: 08/21/20 18:58 - History of Present Illness Initial Comments: 08/21/20 20:27 64yo F presents w/ b/l foot peeling. It started at some recent point within the last two months but pt was unable to give more specific date. It encompasses the plantar surfaces of both feet. It does not spare the toes but has not affected the dorsal surfaces. It is not painful or draining, erythematous, tender, or edematous. She regularly walks around in her shoes without socks and reports that her feet often get sweaty. She denies prior occurence of foot fungus. No trouble ambulating, no paresthesia, numbness, or feelings of coldness in the feet. No n/v/d, fevers, sore throat, rash. Past History - Medical History Allergies/Adverse Reactions: Allergies Allergy/AdvReac Type Severity Reaction Status Date / Time amoxicillin Allergy Verified 08/21/20 17:52 metronidazole [From Flagyl] Allergy Verified 08/21/20 17:52 Home Medications: Ambulatory Orders Brimonidine Tartrate/Timolol [Combigan 0.2%-0.5% Eye Drops] 1 drop OU BID 11/27/19 Clopidogrel Bisulfate [Clopidogrel] 75 mg PO DAILY 11/27/19 Insulin Glargine,Hum.rec.anlog [Basaglar Kwikpen U-100] 65 unit SQ AM 11/27/19 Levothyroxine [Synthroid -] 50 mcg PO DAILY 11/27/19 Rosuvastatin [Crestor -] 20 mg PO HS 11/27/19 Travoprost [Travatan Z] 1 drop OU HS 11/27/19 Emtricitab/Rilpiviri/Tenof Ala [Odefsey Tablet] 1 each PO DAILY 12/05/19 Aspirin Coated [Ecotrin -] 81 mg PO DAILY 01/27/20 Furosemide [Lasix] 20 mg PO DAILY 01/27/20 Hydroxyzine HCl 50 mg PO HS 01/27/20 Multivitamins [Multivit ([facility])] 1 tab PO DAILY 01/27/20 Citalopram Hydrobromide [Citalopram HBr] 40 mg PO DAILY 30 Days #30 tablet 08/11/20 Anemia: No Asthma: No Cancer: No Cardiac Disorders: Yes CVA: No COPD: No CHF: No Dementia: No Diabetes: Yes (on insulin) GI Disorders: No Disorders: No HTN: Yes Hypercholesterolemia: Yes Liver Disease: No Seizures: No Thyroid Disease: Yes - Surgical History Abdominal Surgery: Yes Appendectomy: Yes Cardiac Surgery: Yes (stent) Cholecystectomy: No Lung Surgery: No Neurologic Surgery: No Orthopedic Surgery: No - Immunization History Td Vaccination: Yes TDAP Vaccination: Yes Immunization Up to Date: Yes - Psycho-Social/Smoking History Smoking Status: No Smoking History: Never smoked Have you smoked in the past 12 months: No Number of Cigarettes Smoked Daily: 0 If you are a former smoker, when did you quit?: 0 - Substance Abuse Hx (Audit-C & DAST Scrn) How often the patient has a drink containing alcohol: Never Score: In Men: 4 or > Positive; In Women: 3 or > Positive: 0 Screen Result (Pos requires Nsg. Audit-10AR): Negative In the last yr the pt used illegal drug/Rx for NonMed reason: No Score: Yes response is considered Positive: 0 Screen Result (Positive result requires Nsg. DAST-10): Negative Review of Systems - Review of Systems Able to Perform ROS?: Yes Is the patient limited B[place]ian proficient: No Constitutional: No: Chills, Diaphoresis, Fever HEENTM: No: Blurred Vision, Recent change in vision Respiratory: No: Cough, Shortness of Breath Cardiac (ROS): No: Chest Pain, Lightheadedness ABD/GI: No: Constipated, Diarrhea, Nausea : No: Burning, Dysuria Musculoskeletal: No: Back Pain, Joint Swelling, Muscle Pain, Muscle Weakness, Joint Stiffness Integumentary: Yes: Dryness, Other (skin ). No: Change in Hair/Nails, Pruritus, Rash Neurological: No: Headache, Paresthesia Endocrine: No: Symptoms Reported Hematologic/Lymphatic: No: Symptoms Reported All Other Systems: Reviewed and Negative *Physical Exam - Vital Signs Last Vital Signs Temp Pulse Resp BP Pulse Ox 98.6 F 105 H 18 134/77 99 08/21/20 17:52 08/21/20 17:52 08/21/20 17:52 08/21/20 17:52 08/21/20 17:52 - Physical Exam General Appearance: Yes: Nourished, Appropriately Dressed, Disheveled, Obese. No: Apparent Distress HEENT: positive: EOMI, Normal Voice Neck: positive: Trachea midline. negative: Tender Respiratory/Chest: positive: Lungs Clear, Normal Breath Sounds. negative: Chest Tender Cardiovascular: positive: Regular Rhythm, Regular Rate. negative: Tachycardia Vascular Pulses: Dorsalis-Pedis (R): 1+, Doralis-Pedis (L): 1+ Gastrointestinal/Abdominal: positive: Normal Bowel Sounds, Soft Musculoskeletal: positive: Normal Inspection. negative: CVA Tenderness Extremity: positive: Normal Capillary Refill, Normal Range of Motion. negative: Normal Inspection Integumentary: positive: Other (skin peeling and some crusting b/l plantar surfaces of feet. no oozing, drainage, ttp. ) Neurologic: positive: Fully Oriented, Alert, Motor Strength 5/5 Medical Decision Making - Medical Decision Making 64yo F w/ painless peeling of plantar feet surface after walking around in shoes w/o socks. Consistent with tinea pedis. Will give tinactin cream and DC w/ referral for podiatry. 08/21/20 20:38 Discharge - Discharge Information Problems reviewed: Yes Clinical Impression/Diagnosis: Athletes foot Qualifiers: Laterality: bilateral Qualified Code(s): B35.3 - Tinea pedis Condition: Good Disposition: HOME - Admission No - Follow up/Referral Referrals: Walt Donohue MD [Primary Care Provider] - Christopher Farrar MD [Non Staff, Medical] - Grazyna Cain [Non Staff, Medical] - Chaka Thompson MD [Staff Physician] - - Patient Discharge Instructions Patient Printed Discharge Instructions: Athlete's Foot, DI for Athlete's Foot Additional Instructions: you came to the ED with athlete's foot. This is a benign fungal infection. We supplied some tinactin cream for you that can help treat the condition. Apply it topically to the affected area 2x (twice) per day for 4 weeks. Please follow up with the shirt ironer within 48hours of leaving the ED and return to the emergency department with any severe or concerning symptoms. - Post Discharge Activity
[2020-08-21] MEDS ORDERED: TOLNAFTATE 1% CREAM 15 GM TUBE TP SCH (22:00)
== END 2020-08-21 20:19 | disposition home or self-care (01) ==
LOC: JER 17:41
DX: B35.3 Tinea pedis (principal)
CPT/HCPCS: 99284-25

== ENCOUNTER 2021-02-06 17:52 | Emergency (ER) | payer OTHER ==
[2021-02-06 17:55] VITALS: TEMP 98.1; BMI 34.4
[2021-02-06] MEDS ORDERED: LIDOCAINE 5% TOPICAL PATCH TP ONE (18:35)
[2021-02-06] MEDS ORDERED: LIDOCAINE 5% TOPICAL PATCH ONE (18:47)
[2021-02-06 18:53] VITALS: BP 111/74; PULSE 101
[2021-02-06 18:58] LABS: EPI CELLS 15 /uL (0-25.1); HYALINE CASTS 0 /uL (0-3.1); PH,URINE 6.5 (5.0-8.0); URINE APPEARANCE CLEAR; URINE BACTERIA 53 /uL (0-1359); URINE BILIRUBIN NEGATIVE (NEGATIVE); URINE COLOR YELLOW; URINE GLUCOSE (UA) 1+ (NEGATIVE); URINE KETONE NEGATIVE (NEGATIVE); URINE LEUK ESTERASE TRACE (NEGATIVE); URINE NITRITE NEGATIVE (NEGATIVE); URINE PROTEIN 3+ (NEGATIVE); URINE RBC 10 /uL (0-23.9); URINE UROBILINOGEN 0.2 mg/dL (0.2-1.0); URINE WBC 17 /uL (0-25.8)
[2021-02-06] MEDS ORDERED: LIDOCAINE PATCH REMOVAL MC SCH (22:00)
== END 2021-02-06 20:00 | disposition home or self-care (01) ==
LOC: JERFT 17:52
DX: M54.5 Low back pain (principal)
CPT/HCPCS: 72100-TC-FY; 81003; 99284-25

== ENCOUNTER 2021-03-17 07:17 | Emergency (ER) | payer OTHER ==
[2021-03-17 07:41] VITALS: BMI 34.2
[2021-03-17] MEDS ORDERED: LACTATED RINGERS SOLUTION 1000 ML INFUS.BAG IV ONE (08:05)
[2021-03-17 09:12] LABS: VENOUS BASE EXCESS -0.1 mmol/L (-2-2); VENOUS O2 SATURATION 55.7 % (70-80); VENOUS PH 7.307 (7.310-7.410)
[2021-03-17 09:13] LABS: BASO % 0.7 % (0-2.0); EOS % 1.8 % (0-4.5); HEMATOCRIT 41.2 % (32.4-45.2); HEMOGLOBIN 13.7 GM/dL (10.7-15.3); LYMPH % 56.2 % (8-40); MCH 30.7 pg (25.7-33.7); MCHC 33.3 g/dl (32.0-36.0); MEAN CELL VOLUME 92.2 fl (80-96); MEAN PLT VOLUME 9.4 fl (7.5-11.1); MONO % 3.5 % (3.8-10.2); NEUT % 37.8 % (42.8-82.8); PLATELET COUNT 267 K/MM3 (134-434); RBC 4.47 M/mm3 (3.60-5.2); RDW 13.5 % (11.6-15.6)
[2021-03-17 09:17] LABS: EPI CELLS 5 /uL (0-25.1); HYALINE CASTS 0 /uL (0-3.1); URINE APPEARANCE CLEAR; URINE BACTERIA 120 /uL (0-1359); URINE BILIRUBIN NEGATIVE (NEGATIVE); URINE COLOR YELLOW; URINE GLUCOSE (UA) 3+ (NEGATIVE); URINE KETONE NEGATIVE (NEGATIVE); URINE LEUK ESTERASE NEGATIVE (NEGATIVE); URINE NITRITE NEGATIVE (NEGATIVE); URINE PROTEIN 2+ (NEGATIVE); URINE RBC 18 /uL (0-23.9); URINE UROBILINOGEN 0.2 mg/dL (0.2-1.0); URINE WBC 11 /uL (0-25.8)
[2021-03-17 09:39] LABS: CHLORIDE 96 mmol/L (98-107); SODIUM 130 mmol/L (136-145)
[2021-03-17 09:41] LABS: CALCIUM 9.5 mg/dL (8.5-10.1)
[2021-03-17 09:42] LABS: ALBUMIN 3.2 g/dl (3.4-5.0); ANION GAP 6 MMOL/L (8-16); BLOOD UREA NITROGEN 42.8 mg/dL (7-18); CO2 27 mmol/L (21-32); MAGNESIUM 2.3 mg/dL (1.8-2.4)
[2021-03-17 09:45] LABS: SGOT/AST 27 U/L (15-37); SGPT/ALT 14 U/L (13-61)
[2021-03-17 09:47] LABS: BILIRUBIN,TOTAL 0.5 mg/dL (0.2-1); TOT PROT 8.2 g/dl (6.4-8.2)
[2021-03-17 09:48] LABS: ALK PHOS 145 U/L (45-117)
[2021-03-17] MEDS ORDERED: INSULIN (NOVOLOG) ASPART 100 UNITS/ML 10ML VIAL SQ ONE ×2 (10:03→13:03)
[2021-03-17] MEDS ORDERED: INSULIN SLIDING SCALE (NOVOLOG) 1 VIAL SQ ONE (10:34)
[2021-03-17] MEDS ORDERED: SODIUM CHLORIDE 0.9% 1000 ML INFUS.BAG IV ONE (11:58)
[2021-03-17 12:02] LABS: GLUCOSE,RANDOM 599 mg/dL (74-106)
[2021-03-17 14:46] LABS: BLOOD UREA NITROGEN 37.4 mg/dL (7-18); CALCIUM 8.8 mg/dL (8.5-10.1)
[2021-03-17 14:49] VITALS: TEMP 97.9
[2021-03-17 14:49] LABS: BILIRUBIN,TOTAL 0.3 mg/dL (0.2-1); CREATININE 1.7 mg/dL (0.55-1.3)
[2021-03-17 14:51] LABS: TOT PROT 7.2 g/dl (6.4-8.2)
[2021-03-17 15:30] VITALS: BP 137/86; PULSE 90
== END 2021-03-17 15:30 | disposition home or self-care (01) ==
LOC: JER 07:17
DX: E11.65 Type 2 diabetes mellitus with hyperglycemia (principal)
CPT/HCPCS: 36415; 80053; 81003; 82010; 82550; 82553; 82803; 83735; 84484; 85025; 93005; 93010; 99284-25

== ENCOUNTER → 2021-03-17 | Day surgery (SDC) | payer OTHER ==
[2021-03-16 17:09] VITALS: BMI 34.0
[2021-03-17 07:29] VITALS: BP 151/98; PULSE 90; TEMP 97.8
[2021-03-17 07:40] LABS: GLUCOSE,RANDOM 565 mg/dL (74-106)
== END | disposition home or self-care (01) ==
LOC: JASU-SURG 04:20
PROVIDERS: ATTEND Orthopaedic Surgery
DX: Z53.8 Procedure and treatment not carried out for other reasons (principal)
CPT/HCPCS: 36415; 82947; 82962

== ENCOUNTER 2021-05-25 10:18 | Inpatient (IN) | payer OTHER ==
[2021-05-25 12:19] LABS: BASO % 0.9 % (0-2.0); EOS % 1.4 % (0-4.5); HEMATOCRIT 39.8 % (32.4-45.2); HEMOGLOBIN 13.2 GM/dL (10.7-15.3); LYMPH % 52.6 % (8-40); MCH 30.2 pg (25.7-33.7); MCHC 33.2 g/dl (32.0-36.0); MEAN CELL VOLUME 90.9 fl (80-96); MEAN PLT VOLUME 8.8 fl (7.5-11.1); NEUT % 41.1 % (42.8-82.8); PLATELET COUNT 326 10^3/uL (134-434); RBC 4.38 M/mm3 (3.60-5.2); RDW 14.7 % (11.6-15.6); WHITE BLOOD COUNT 11.5 K/mm3 (4.0-10.0)
[2021-05-25 12:39] LABS: CALCIUM 8.5 mg/dL (8.5-10.1)
[2021-05-25 12:40] LABS: BLOOD UREA NITROGEN 35.6 mg/dL (7-18)
[2021-05-25 12:43] LABS: CREATININE 1.9 mg/dL (0.55-1.3)
[2021-05-25 13:10] LABS: ERYTHROCYTE SEDIMENTATION RATE 75 mm/hr (0-30)
[2021-05-25] MEDS ORDERED: VANCOMYCIN HCL 1,500 MG in DEXTROSE 5%-WATER - 250 ML IVPB SCH (15:00)
[2021-05-25] MEDS ORDERED: ACETAMINOPHEN 325 MG TABLET (FP) PO PRN (15:02)
[2021-05-25] MEDS ORDERED: PIPERACILLIN/TAZOB 2.25 GM 2.25 GM/50 ML BAG IVPB ONE (15:48)
[2021-05-25] MEDS ORDERED: VANCOMYCIN 1 GRAM (PRE-DOCKED) 1,000 MG/250 ML BAG IVPB ONE (15:49)
[2021-05-25] MEDS: PIPERACILLIN/TAZOB 2.25 GM 2.25 GM in DEXTROSE 5%-WATER - 50 ML IVPB SCH ×2 (15:49→22:23)
[2021-05-25] MEDS ORDERED: VANCOMYCIN 2,000 MG in DEXTROSE 5%-WATER - 500 ML IVPB ONE (16:00)
[2021-05-25 16:15] VITALS: BMI 34.4
[2021-05-25] MEDS ORDERED: POVIDONE-IODINE 10% SOLN 118 ML BOTTLE TP ONE (16:38)
[2021-05-25] MEDS: INSULIN SLIDING SCALE (NOVOLOG) 1 VIAL SQ SCH ×2 (17:40→22:33)
[2021-05-25] MEDS ORDERED: INSULIN (NOVOLOG) ASPART 100 UNITS/ML 10ML VIAL ONE (20:51)
[2021-05-25] MEDS ORDERED: PIPERACILLIN/TAZOBACTAM 2.25 GM VIAL IVPB ONE (21:58)
[2021-05-25] MEDS ORDERED: DEXTROSE 5%-WATER - 50 ML IVPB ONE (21:58)
[2021-05-25] MEDS ORDERED: PATIENT'S OWN MEDICATION (NON-FORMULARY) (Brimonidine Tartrate/Timolol [Combigan 0.2%-0.5% OU SCH (22:00)
[2021-05-25] MEDS: ROSUVASTATIN CA 20 MG TABLET (FP) PO SCH (22:17)
[2021-05-25] MEDS: MELATONIN 5 MG TABLETS PO SCH (22:17)
[2021-05-25] MEDS: HEPARIN NA (PORCINE) 5,000 UNITS/ML 1ML VIAL SQ SCH (22:18)
[2021-05-25] MEDS: CARVEDILOL 3.125 MG TABLET (FP) PO SCH (22:18)
[2021-05-25] MEDS: BRIMONIDINE TARTRATE 0.1% OPHTHALMIC 5 ML BOTTLE OU SCH (22:19)
[2021-05-25] MEDS: TIMOLOL 0.5% OPHTHALMIC SOL 5 ML BOTTLE OU SCH (22:19)
[2021-05-25] MEDS: POLYETHYLENE GLYCOL (HEALTHYLAX) 3350 17 GM PACKET PO SCH (22:22)
[2021-05-25] MEDS: DOXEPIN HCL 50 MG CAPSULE PO SCH (22:23)
[2021-05-25] MEDS: INSULIN (LEVEMIR) 100 UNITS/ML UNITS SQ SCH (22:33)
[2021-05-26] MEDS ORDERED: PIPERACILLIN/TAZOBACTAM 2.25 GM VIAL IVPB ONE ×4 (01:37→21:01)
[2021-05-26] MEDS ORDERED: DEXTROSE 5%-WATER - 50 ML IVPB ONE ×4 (01:38→21:01)
[2021-05-26] MEDS: PIPERACILLIN/TAZOB 2.25 GM 2.25 GM in DEXTROSE 5%-WATER - 50 ML IVPB SCH ×7 (02:09→21:55)
[2021-05-26] MEDS: INSULIN SLIDING SCALE (NOVOLOG) 1 VIAL SQ SCH ×4 (06:03→22:01)
[2021-05-26] MEDS: INSULIN (LEVEMIR) 100 UNITS/ML UNITS SQ SCH ×2 (06:04→22:00)
[2021-05-26] MEDS: HEPARIN NA (PORCINE) 5,000 UNITS/ML 1ML VIAL SQ SCH ×3 (06:05→22:00)
[2021-05-26] MEDS: LEVOTHYROXINE NA 50 MCG TABLET (FP) PO SCH (06:06)
[2021-05-26 08:18] LABS: BASO % 0.6 % (0-2.0); EOS % 2.4 % (0-4.5); HEMATOCRIT 39.5 % (32.4-45.2); HEMOGLOBIN 13.2 GM/dL (10.7-15.3); LYMPH % 56.4 % (8-40); MCH 30.5 pg (25.7-33.7); MCHC 33.4 g/dl (32.0-36.0); MEAN CELL VOLUME 91.4 fl (80-96); MEAN PLT VOLUME 8.4 fl (7.5-11.1); MONO % 4.4 % (3.8-10.2); NEUT % 36.2 % (42.8-82.8); PLATELET COUNT 290 10^3/uL (134-434); RBC 4.33 M/mm3 (3.60-5.2); RDW 14.3 % (11.6-15.6); WHITE BLOOD COUNT 9.7 K/mm3 (4.0-10.0)
[2021-05-26 08:40] LABS: ALBUMIN 2.6 g/dl (3.4-5.0); BLOOD UREA NITROGEN 36.4 mg/dL (7-18); MAGNESIUM 2.2 mg/dL (1.8-2.4)
[2021-05-26 08:43] LABS: BILIRUBIN,TOTAL 0.6 mg/dL (0.2-1); CREATININE 1.9 mg/dL (0.55-1.3); PHOSPHOROUS 4.5 mg/dL (2.5-4.9)
[2021-05-26 08:44] LABS: TOT PROT 6.6 g/dl (6.4-8.2)
[2021-05-26] MEDS: POLYETHYLENE GLYCOL (HEALTHYLAX) 3350 17 GM PACKET PO SCH ×3 (09:51→22:10)
[2021-05-26] MEDS: CARVEDILOL 3.125 MG TABLET (FP) PO SCH ×2 (09:54→22:01)
[2021-05-26] MEDS: CITALOPRAM HYDROBROMIDE 20 MG TABLET PO SCH (09:54)
[2021-05-26] MEDS: SOLIFENACIN SUCCINATE 5 MG TAB PO SCH (09:54)
[2021-05-26] MEDS: BRIMONIDINE TARTRATE 0.1% OPHTHALMIC 5 ML BOTTLE OU SCH ×2 (12:12→21:57)
[2021-05-26] MEDS ORDERED: PT OWN MED DRAWER 7, Y5N ONE (12:33)
[2021-05-26] MEDS: TIMOLOL 0.5% OPHTHALMIC SOL 5 ML BOTTLE OU SCH ×2 (12:36→21:57)
[2021-05-26] MEDS: EMTRICITAB/RILPIVIRI/TENOF ALA (ODEFSEY) TABLET PO SCH (12:41)
[2021-05-26 15:47] LABS: COCAINE, UR NEGATIVE (NEGATIVE)
[2021-05-26 15:48] LABS: METHADONE, UR NEGATIVE (NEGATIVE); OPIATES, URI NEGATIVE (NEGATIVE); PHENCYCLIDINE,URINE NEGATIVE (NEGATIVE); URINE AMPHETAMINES NEGATIVE (NEGATIVE); URINE BARBITURATES NEGATIVE (NEGATIVE); URINE BENZODIAZEPINES NEGATIVE (NEGATIVE)
[2021-05-26] MEDS ORDERED: VANCOMYCIN/WATER BAGS 1,250 MG/250 ML BAG IVPB SCH (16:00)
[2021-05-26] MEDS: MELATONIN 5 MG TABLETS PO SCH (22:00)
[2021-05-26] MEDS: ROSUVASTATIN CA 20 MG TABLET (FP) PO SCH (22:00)
[2021-05-26] MEDS: DOXEPIN HCL 50 MG CAPSULE PO SCH (22:01)
[2021-05-27] MEDS ORDERED: DEXTROSE 5%-WATER - 50 ML IVPB ONE ×4 (01:44→20:31)
[2021-05-27] MEDS ORDERED: PIPERACILLIN/TAZOBACTAM 2.25 GM VIAL IVPB ONE ×4 (01:44→20:30)
[2021-05-27] MEDS: PIPERACILLIN/TAZOB 2.25 GM 2.25 GM in DEXTROSE 5%-WATER - 50 ML IVPB SCH ×4 (02:19→21:06)
[2021-05-27] MEDS: HEPARIN NA (PORCINE) 5,000 UNITS/ML 1ML VIAL SQ SCH ×3 (06:41→21:08)
[2021-05-27] MEDS: INSULIN SLIDING SCALE (NOVOLOG) 1 VIAL SQ SCH ×4 (06:42→21:11)
[2021-05-27] MEDS: INSULIN (LEVEMIR) 100 UNITS/ML UNITS SQ SCH ×2 (06:42→21:09)
[2021-05-27] MEDS: LEVOTHYROXINE NA 50 MCG TABLET (FP) PO SCH (06:43)
[2021-05-27 08:58] LABS: HEMATOCRIT 39.9 % (32.4-45.2); MCHC 32.6 g/dl (32.0-36.0); MEAN PLT VOLUME 8.7 fl (7.5-11.1); PLATELET COUNT 292 10^3/uL (134-434); RBC 4.33 M/mm3 (3.60-5.2); RDW 14.7 % (11.6-15.6); WHITE BLOOD COUNT 10.4 K/mm3 (4.0-10.0)
[2021-05-27 09:33] LABS: ALBUMIN 2.6 g/dl (3.4-5.0); BLOOD UREA NITROGEN 43.3 mg/dL (7-18)
[2021-05-27 09:34] LABS: BILIRUBIN,TOTAL 0.3 mg/dL (0.2-1); TOT PROT 6.4 g/dl (6.4-8.2)
[2021-05-27 09:36] LABS: CREATININE 1.8 mg/dL (0.55-1.3); MAGNESIUM 2.3 mg/dL (1.8-2.4); PHOSPHOROUS 4.2 mg/dL (2.5-4.9)
[2021-05-27] MEDS: POLYETHYLENE GLYCOL (HEALTHYLAX) 3350 17 GM PACKET PO SCH ×2 (10:06→21:07)
[2021-05-27] MEDS: CITALOPRAM HYDROBROMIDE 20 MG TABLET PO SCH (10:08)
[2021-05-27] MEDS: SOLIFENACIN SUCCINATE 5 MG TAB PO SCH (10:08)
[2021-05-27] MEDS: CARVEDILOL 3.125 MG TABLET (FP) PO SCH ×2 (10:09→21:08)
[2021-05-27] MEDS: EMTRICITAB/RILPIVIRI/TENOF ALA (ODEFSEY) TABLET PO SCH (10:09)
[2021-05-27] MEDS: BRIMONIDINE TARTRATE 0.1% OPHTHALMIC 5 ML BOTTLE OU SCH ×2 (10:10→21:07)
[2021-05-27] MEDS: TIMOLOL 0.5% OPHTHALMIC SOL 5 ML BOTTLE OU SCH ×2 (10:10→21:12)
[2021-05-27] MEDS ORDERED: PT OWN MED DRAWER 7, Y5N ONE (20:30)
[2021-05-27] MEDS: MELATONIN 5 MG TABLETS PO SCH (21:08)
[2021-05-27] MEDS: ROSUVASTATIN CA 20 MG TABLET (FP) PO SCH (21:08)
[2021-05-27] MEDS: DOXEPIN HCL 50 MG CAPSULE PO SCH (21:12)
[2021-05-28] MEDS ORDERED: DEXTROSE 5%-WATER - 50 ML IVPB ONE ×4 (02:08→20:38)
[2021-05-28] MEDS ORDERED: PIPERACILLIN/TAZOBACTAM 2.25 GM VIAL IVPB ONE ×4 (02:08→20:38)
[2021-05-28] MEDS: PIPERACILLIN/TAZOB 2.25 GM 2.25 GM in DEXTROSE 5%-WATER - 50 ML IVPB SCH ×4 (02:18→22:02)
[2021-05-28] MEDS: INSULIN (LEVEMIR) 100 UNITS/ML UNITS SQ SCH ×2 (06:13→22:04)
[2021-05-28] MEDS: HEPARIN NA (PORCINE) 5,000 UNITS/ML 1ML VIAL SQ SCH ×3 (06:13→22:03)
[2021-05-28] MEDS: LEVOTHYROXINE NA 50 MCG TABLET (FP) PO SCH (06:13)
[2021-05-28] MEDS: INSULIN SLIDING SCALE (NOVOLOG) 1 VIAL SQ SCH ×4 (06:15→22:06)
[2021-05-28 09:14] LABS: HEMATOCRIT 42.7 % (32.4-45.2); HEMOGLOBIN 13.9 GM/dL (10.7-15.3); MCH 30.1 pg (25.7-33.7); MCHC 32.5 g/dl (32.0-36.0); MEAN CELL VOLUME 92.4 fl (80-96); MEAN PLT VOLUME 8.8 fl (7.5-11.1); PLATELET COUNT 307 10^3/uL (134-434); RBC 4.62 M/mm3 (3.60-5.2); RDW 14.7 % (11.6-15.6); WHITE BLOOD COUNT 9.9 K/mm3 (4.0-10.0)
[2021-05-28] MEDS: EMTRICITAB/RILPIVIRI/TENOF ALA (ODEFSEY) TABLET PO SCH (09:29)
[2021-05-28] MEDS: POLYETHYLENE GLYCOL (HEALTHYLAX) 3350 17 GM PACKET PO SCH ×3 (09:30→22:08)
[2021-05-28] MEDS: CITALOPRAM HYDROBROMIDE 20 MG TABLET PO SCH (09:30)
[2021-05-28] MEDS: SOLIFENACIN SUCCINATE 5 MG TAB PO SCH (09:30)
[2021-05-28] MEDS: CARVEDILOL 3.125 MG TABLET (FP) PO SCH ×2 (09:30→22:03)
[2021-05-28] MEDS: TIMOLOL 0.5% OPHTHALMIC SOL 5 ML BOTTLE OU SCH ×2 (09:35→22:02)
[2021-05-28] MEDS: BRIMONIDINE TARTRATE 0.1% OPHTHALMIC 5 ML BOTTLE OU SCH ×2 (09:35→22:02)
[2021-05-28 09:44] LABS: MAGNESIUM 2.3 mg/dL (1.8-2.4)
[2021-05-28 09:45] LABS: ALBUMIN 2.8 g/dl (3.4-5.0); BLOOD UREA NITROGEN 39.3 mg/dL (7-18); CALCIUM 8.8 mg/dL (8.5-10.1)
[2021-05-28 09:47] LABS: CREATININE 1.8 mg/dL (0.55-1.3)
[2021-05-28 09:48] LABS: PHOSPHOROUS 4.1 mg/dL (2.5-4.9); TOT PROT 6.9 g/dl (6.4-8.2)
[2021-05-28 09:50] LABS: BILIRUBIN,TOTAL 0.3 mg/dL (0.2-1)
[2021-05-28 17:27] LABS: EPI CELLS >36 /uL (0-25.1); HYALINE CASTS 1 /uL (0-3.1); PH,URINE 6.5 (5.0-8.0); URINE APPEARANCE CLEAR; URINE BACTERIA 7 /uL (0-1359); URINE BILIRUBIN NEGATIVE (NEGATIVE); URINE COLOR YELLOW; URINE GLUCOSE (UA) 2+ (NEGATIVE); URINE KETONE NEGATIVE (NEGATIVE); URINE LEUK ESTERASE 1+ (NEGATIVE); URINE NITRITE NEGATIVE (NEGATIVE); URINE PROTEIN 3+ (NEGATIVE); URINE RBC 21 /uL (0-23.9); URINE WBC 131 /uL (0-25.8)
[2021-05-28] MEDS: MELATONIN 5 MG TABLETS PO SCH (22:03)
[2021-05-28] MEDS: ROSUVASTATIN CA 20 MG TABLET (FP) PO SCH (22:03)
[2021-05-28] MEDS ORDERED: PT OWN MED DRAWER 7, Y5N ONE (22:47)
[2021-05-28] MEDS: DOXEPIN HCL 50 MG CAPSULE PO SCH (23:12)
[2021-05-29] MEDS ORDERED: DEXTROSE 5%-WATER - 50 ML IVPB ONE ×4 (03:59→21:20)
[2021-05-29] MEDS ORDERED: PIPERACILLIN/TAZOBACTAM 2.25 GM VIAL IVPB ONE ×4 (03:59→21:20)
[2021-05-29] MEDS: PIPERACILLIN/TAZOB 2.25 GM 2.25 GM in DEXTROSE 5%-WATER - 50 ML IVPB SCH ×4 (04:03→22:00)
[2021-05-29] MEDS: HEPARIN NA (PORCINE) 5,000 UNITS/ML 1ML VIAL SQ SCH ×3 (05:57→22:30)
[2021-05-29] MEDS: INSULIN SLIDING SCALE (NOVOLOG) 1 VIAL SQ SCH ×4 (06:00→22:47)
[2021-05-29] MEDS: INSULIN (LEVEMIR) 100 UNITS/ML UNITS SQ SCH ×2 (06:00→22:46)
[2021-05-29] MEDS: LEVOTHYROXINE NA 50 MCG TABLET (FP) PO SCH (06:00)
[2021-05-29 08:10] LABS: HEMATOCRIT 38.2 % (32.4-45.2); HEMOGLOBIN 12.9 GM/dL (10.7-15.3); MCH 30.7 pg (25.7-33.7); MCHC 33.6 g/dl (32.0-36.0); MEAN CELL VOLUME 91.4 fl (80-96); MEAN PLT VOLUME 8.5 fl (7.5-11.1); PLATELET COUNT 264 10^3/uL (134-434); RBC 4.18 M/mm3 (3.60-5.2); RDW 14.8 % (11.6-15.6); WHITE BLOOD COUNT 9.6 K/mm3 (4.0-10.0)
[2021-05-29 08:33] LABS: CALCIUM 8.7 mg/dL (8.5-10.1); MAGNESIUM 2.3 mg/dL (1.8-2.4)
[2021-05-29 08:36] LABS: CREATININE 1.8 mg/dL (0.55-1.3)
[2021-05-29] MEDS: SOLIFENACIN SUCCINATE 5 MG TAB PO SCH (10:06)
[2021-05-29] MEDS: CITALOPRAM HYDROBROMIDE 20 MG TABLET PO SCH (10:07)
[2021-05-29] MEDS: EMTRICITAB/RILPIVIRI/TENOF ALA (ODEFSEY) TABLET PO SCH (10:08)
[2021-05-29] MEDS: CARVEDILOL 3.125 MG TABLET (FP) PO SCH ×2 (10:08→22:30)
[2021-05-29] MEDS: POLYETHYLENE GLYCOL (HEALTHYLAX) 3350 17 GM PACKET PO SCH ×2 (10:09→22:31)
[2021-05-29] MEDS: BRIMONIDINE TARTRATE 0.1% OPHTHALMIC 5 ML BOTTLE OU SCH ×2 (10:09→22:32)
[2021-05-29] MEDS: TIMOLOL 0.5% OPHTHALMIC SOL 5 ML BOTTLE OU SCH ×2 (10:10→22:32)
[2021-05-29] MEDS: MELATONIN 5 MG TABLETS PO SCH (22:30)
[2021-05-29] MEDS: ROSUVASTATIN CA 20 MG TABLET (FP) PO SCH (22:30)
[2021-05-29] MEDS: DOXEPIN HCL 50 MG CAPSULE PO SCH (22:34)
[2021-05-30] MEDS ORDERED: PIPERACILLIN/TAZOBACTAM 2.25 GM VIAL IVPB ONE ×4 (02:46→20:45)
[2021-05-30] MEDS: PIPERACILLIN/TAZOB 2.25 GM 2.25 GM in DEXTROSE 5%-WATER - 50 ML IVPB SCH ×4 (02:50→21:20)
[2021-05-30] MEDS: INSULIN (LEVEMIR) 100 UNITS/ML UNITS SQ SCH ×2 (06:18→21:29)
[2021-05-30] MEDS: HEPARIN NA (PORCINE) 5,000 UNITS/ML 1ML VIAL SQ SCH ×3 (06:19→21:23)
[2021-05-30] MEDS: INSULIN SLIDING SCALE (NOVOLOG) 1 VIAL SQ SCH ×4 (06:19→21:29)
[2021-05-30] MEDS: LEVOTHYROXINE NA 50 MCG TABLET (FP) PO SCH (06:19)
[2021-05-30] MEDS ORDERED: DEXTROSE 5%-WATER - 50 ML IVPB ONE ×2 (08:52→13:49)
[2021-05-30] MEDS ORDERED: PT OWN MED DRAWER 7, Y5N ONE (08:52)
[2021-05-30] MEDS: EMTRICITAB/RILPIVIRI/TENOF ALA (ODEFSEY) TABLET PO SCH (08:58)
[2021-05-30] MEDS: TIMOLOL 0.5% OPHTHALMIC SOL 5 ML BOTTLE OU SCH ×2 (09:00→21:23)
[2021-05-30] MEDS: BRIMONIDINE TARTRATE 0.1% OPHTHALMIC 5 ML BOTTLE OU SCH ×2 (09:00→21:23)
[2021-05-30] MEDS: CITALOPRAM HYDROBROMIDE 20 MG TABLET PO SCH (09:02)
[2021-05-30] MEDS: SOLIFENACIN SUCCINATE 5 MG TAB PO SCH (09:02)
[2021-05-30] MEDS: CARVEDILOL 3.125 MG TABLET (FP) PO SCH ×2 (09:02→21:22)
[2021-05-30] MEDS: POLYETHYLENE GLYCOL (HEALTHYLAX) 3350 17 GM PACKET PO SCH ×2 (09:03→21:23)
[2021-05-30] MEDS: ROSUVASTATIN CA 20 MG TABLET (FP) PO SCH (21:21)
[2021-05-30] MEDS: MELATONIN 5 MG TABLETS PO SCH (21:21)
[2021-05-30] MEDS: DOXEPIN HCL 50 MG CAPSULE PO SCH (21:30)
[2021-05-31] MEDS ORDERED: PIPERACILLIN/TAZOBACTAM 2.25 GM VIAL IVPB ONE ×2 (02:38→08:31)
[2021-05-31] MEDS ORDERED: DEXTROSE 5%-WATER - 50 ML IVPB ONE ×2 (02:38→08:31)
[2021-05-31] MEDS: PIPERACILLIN/TAZOB 2.25 GM 2.25 GM in DEXTROSE 5%-WATER - 50 ML IVPB SCH ×2 (03:08→08:56)
[2021-05-31] MEDS: HEPARIN NA (PORCINE) 5,000 UNITS/ML 1ML VIAL SQ SCH ×3 (05:20→21:31)
[2021-05-31] MEDS: INSULIN SLIDING SCALE (NOVOLOG) 1 VIAL SQ SCH ×4 (06:49→21:40)
[2021-05-31] MEDS: LEVOTHYROXINE NA 50 MCG TABLET (FP) PO SCH (06:50)
[2021-05-31] MEDS: INSULIN (LEVEMIR) 100 UNITS/ML UNITS SQ SCH ×2 (06:51→21:40)
[2021-05-31] MEDS ORDERED: PT OWN MED DRAWER 7, Y5N ONE ×2 (08:30→12:49)
[2021-05-31] MEDS: EMTRICITAB/RILPIVIRI/TENOF ALA (ODEFSEY) TABLET PO SCH (08:56)
[2021-05-31] MEDS: SOLIFENACIN SUCCINATE 5 MG TAB PO SCH (09:04)
[2021-05-31] MEDS: CITALOPRAM HYDROBROMIDE 20 MG TABLET PO SCH (09:04)
[2021-05-31] MEDS: CARVEDILOL 3.125 MG TABLET (FP) PO SCH ×2 (09:04→21:30)
[2021-05-31] MEDS: POLYETHYLENE GLYCOL (HEALTHYLAX) 3350 17 GM PACKET PO SCH ×2 (09:04→21:30)
[2021-05-31] MEDS: BRIMONIDINE TARTRATE 0.1% OPHTHALMIC 5 ML BOTTLE OU SCH ×2 (09:07→21:36)
[2021-05-31] MEDS: TIMOLOL 0.5% OPHTHALMIC SOL 5 ML BOTTLE OU SCH ×2 (09:08→21:35)
[2021-05-31 10:16] LABS: CALCIUM 9.4 mg/dL (8.5-10.1)
[2021-05-31 10:20] LABS: CREATININE 2.2 mg/dL (0.55-1.3)
[2021-05-31] MEDS ORDERED: SODIUM ZIRCONIUM CYCLOSILICATE (LOKELMA) 5 GM PACKET PO ONE (13:17)
[2021-05-31] MEDS ORDERED: DEXTROSE 5%-WATER 100 ML IVPB ONE (14:59)
[2021-05-31] MEDS: ASPIRIN COATED 81 MG TABLET.EC PO SCH (15:07)
[2021-05-31] MEDS: CEFTRIAXONE 2 GM in DEXTROSE 5%-WATER 100 ML IVPB SCH (15:07)
[2021-05-31] MEDS ORDERED: NYSTATIN POWDER 100,000 UNITS/GM - 15 GM TOPICAL POWDER TP ONE (17:29)
[2021-05-31] MEDS: MELATONIN 5 MG TABLETS PO SCH (21:30)
[2021-05-31] MEDS: ROSUVASTATIN CA 20 MG TABLET (FP) PO SCH (21:30)
[2021-05-31] MEDS ORDERED: DOXEPIN HCL 25 MG CAPSULE PO SCH (22:00)
[2021-06-01] MEDS: HEPARIN NA (PORCINE) 5,000 UNITS/ML 1ML VIAL SQ SCH (05:55)
[2021-06-01] MEDS: LEVOTHYROXINE NA 50 MCG TABLET (FP) PO SCH (06:15)
[2021-06-01] MEDS: INSULIN (LEVEMIR) 100 UNITS/ML UNITS SQ SCH (06:16)
[2021-06-01] MEDS: INSULIN SLIDING SCALE (NOVOLOG) 1 VIAL SQ SCH ×2 (06:16→11:06)
[2021-06-01] MEDS ORDERED: PT OWN MED DRAWER 7, Y5N ONE (09:03)
[2021-06-01] MEDS: CEFTRIAXONE 2 GM in DEXTROSE 5%-WATER 100 ML IVPB SCH (09:11)
[2021-06-01] MEDS: ASPIRIN COATED 81 MG TABLET.EC PO SCH (09:11)
[2021-06-01] MEDS: CARVEDILOL 3.125 MG TABLET (FP) PO SCH (09:11)
[2021-06-01] MEDS: SOLIFENACIN SUCCINATE 5 MG TAB PO SCH (09:11)
[2021-06-01] MEDS: EMTRICITAB/RILPIVIRI/TENOF ALA (ODEFSEY) TABLET PO SCH (09:11)
[2021-06-01] MEDS: CITALOPRAM HYDROBROMIDE 20 MG TABLET PO SCH (09:11)
[2021-06-01] MEDS: BRIMONIDINE TARTRATE 0.1% OPHTHALMIC 5 ML BOTTLE OU SCH (09:12)
[2021-06-01] MEDS: POLYETHYLENE GLYCOL (HEALTHYLAX) 3350 17 GM PACKET PO SCH (09:12)
[2021-06-01] MEDS: TIMOLOL 0.5% OPHTHALMIC SOL 5 ML BOTTLE OU SCH (09:12)
[2021-06-01 14:22] VITALS: BP 130/75; PULSE 74; TEMP 97.5
== END 2021-06-01 14:26 | disposition home or self-care (01) | DRG 300 ==
LOC: JER 10:18 → JERBED 12:09 → J8W 16:39
PROVIDERS: ATTEND Internal Medicine
PROC: 02H633Z Insertion of Infusion Device into Right Atrium, Percutaneous Approach (ICD-10-PCS; principal; 2021-05-31)
PROC: B518ZZA Fluoroscopy of Superior Vena Cava, Guidance (ICD-10-PCS; 2021-05-31)
DX: E11.52 Type 2 diabetes mellitus with diabetic peripheral angiopathy with gangrene (principal); I50.32 Chronic diastolic (congestive) heart failure; I13.2 Hypertensive heart and chronic kidney disease with heart failure and with stage 5 chronic kidney disease, or end stage renal disease; N17.9 Acute kidney failure, unspecified; M86.171 Other acute osteomyelitis, right ankle and foot; E11.69 Type 2 diabetes mellitus with other specified complication; E11.621 Type 2 diabetes mellitus with foot ulcer; E11.22 Type 2 diabetes mellitus with diabetic chronic kidney disease; N18.30 Chronic kidney disease, stage 3 unspecified; E03.9 Hypothyroidism, unspecified; I25.10 Atherosclerotic heart disease of native coronary artery without angina pectoris; E87.5 Hyperkalemia; Z22.1 Carrier of other intestinal infectious diseases; H40.9 Unspecified glaucoma; I73.9 Peripheral vascular disease, unspecified; K59.00 Constipation, unspecified; E11.65 Type 2 diabetes mellitus with hyperglycemia; Z98.61 Coronary angioplasty status; R00.0 Tachycardia, unspecified; E78.5 Hyperlipidemia, unspecified; E66.01 Morbid (severe) obesity due to excess calories; Z68.34 Body mass index [BMI] 34.0-34.9, adult; F41.8 Other specified anxiety disorders
CPT/HCPCS: 36415; 36558; 71045-TC-FY; 73630-TC-RT-FY; 73718-TC-RT; 80048; 80053; 80307; 81003; 82962; 83735; 84100; 85025; 85027; 85651; 86140; 87040; 93005; 93010; 93925-TC; 97116-GP; 97161-GP; 99285-25; C9803; G0480; J1644; U0003; U0005

== ENCOUNTER 2021-06-02 11:41 | Day surgery (SDC) | payer OTHER ==
[2021-06-02 12:11] VITALS: BP 148/77; PULSE 88; TEMP 98.8
[2021-06-02] MEDS ORDERED: DEXTROSE 5%-WATER 100 ML IVPB ONE (12:25)
[2021-06-02] MEDS ORDERED: CEFTRIAXONE 2 GM in DEXTROSE 5%-WATER 100 ML IVPB ONE (13:00)
== END 2021-06-02 13:10 | disposition home or self-care (01) ==
LOC: JINFUSION 11:41 → J7W 11:44 → JINFUSION 13:10
PROVIDERS: ATTEND Internal Medicine
DX: E11.621 Type 2 diabetes mellitus with foot ulcer (principal); M86.171 Other acute osteomyelitis, right ankle and foot; Z21 Asymptomatic human immunodeficiency virus [HIV] infection status
CPT/HCPCS: 96365

== ENCOUNTER 2021-06-03 11:19 | Day surgery (SDC) | payer OTHER ==
[2021-06-03] MEDS ORDERED: CEFTRIAXONE 2 GM in DEXTROSE 5%-WATER 100 ML IVPB ONE (11:45)
[2021-06-03] MEDS ORDERED: DEXTROSE 5%-WATER 100 ML IVPB ONE (11:51)
[2021-06-03 14:03] VITALS: BP 138/90; PULSE 85; TEMP 98.6
== END 2021-06-03 14:08 | disposition home or self-care (01) ==
LOC: J7W 11:19 → JINFUSION 11:19
PROVIDERS: ATTEND Internal Medicine
DX: E11.621 Type 2 diabetes mellitus with foot ulcer (principal); M86.171 Other acute osteomyelitis, right ankle and foot; Z21 Asymptomatic human immunodeficiency virus [HIV] infection status
CPT/HCPCS: 96365; 96367

== ENCOUNTER 2021-06-06 11:20 | Day surgery (SDC) | payer OTHER ==
[~2021-06-06 11:20] MED LIST: CEFTRIAXONE 2 GM in DEXTROSE 5%-WATER 100 ML IVPB ONE
[2021-06-06] MEDS ORDERED: DEXTROSE 5%-WATER 100 ML IVPB ONE (11:33)
[2021-06-06 13:06] VITALS: BP 126/64; PULSE 88; TEMP 98.4
== END 2021-06-06 12:30 | disposition home or self-care (01) ==
LOC: JINFUSION 11:20 → J7W 11:24 → JINFUSION 12:30
PROVIDERS: ATTEND Internal Medicine
DX: Z53.8 Procedure and treatment not carried out for other reasons (principal)
CPT/HCPCS: 96365

== ENCOUNTER 2021-06-10 23:22 | Emergency (ER) | payer OTHER ==
[2021-06-10 23:48] VITALS: BMI 34.0
[2021-06-11 02:02] VITALS: BP 161/88; PULSE 82; TEMP 98
== END 2021-06-11 05:04 | disposition home or self-care (01) ==
LOC: JER 23:22
DX: R21 Rash and other nonspecific skin eruption (principal)
CPT/HCPCS: 99283-25

== ENCOUNTER → 2021-06-10 | Day surgery (SDC) | payer OTHER | END | disposition home or self-care (01) | LOC: JRADIR 13:02 | PROVIDERS: ATTEND Internal Medicine | PROC: 02PY03Z Removal of Infusion Device from Great Vessel, Open Approach (ICD-10-PCS; principal; 2021-06-10) | DX: Z45.2 Encounter for adjustment and management of vascular access device (principal) | CPT/HCPCS: 36589 ==

== ENCOUNTER 2021-08-03 14:40 | Emergency (ER) | payer OTHER ==
[2021-08-03 14:53] VITALS: BP 163/96; PULSE 95; TEMP 97.9; BMI 34.2
[2021-08-03] MEDS ORDERED: CLINDAMYCIN 600MG PREMIX IVPB 600 MG/50 ML BAG IVPB ONE ×2 (16:56→17:26)
== END 2021-08-03 18:25 | disposition home or self-care (01) ==
LOC: JERFT 14:40
DX: B35.4 Tinea corporis (principal); L03.313 Cellulitis of chest wall
CPT/HCPCS: 82962; 99284-25

== ENCOUNTER 2021-08-05 12:17 | Emergency (ER) | payer OTHER ==
[2021-08-05 12:36] VITALS: BP 120/73; PULSE 91; TEMP 98.1; BMI 34.2
== END 2021-08-05 13:45 | disposition home or self-care (01) ==
LOC: JERFT 12:17
DX: Z48.00 Encounter for change or removal of nonsurgical wound dressing (principal)
CPT/HCPCS: 99281-25

== ENCOUNTER 2021-08-26 11:24 | Emergency (ER) | payer OTHER ==
[2021-08-26 12:16] VITALS: BP 182/103; PULSE 106; TEMP 97.9; BMI 35.4
== END 2021-08-26 14:17 | disposition home or self-care (01) ==
LOC: JER 11:24
DX: K59.09 Other constipation (principal)
CPT/HCPCS: 74019-TC-FY; 99283-25

== ENCOUNTER 2021-09-06 13:44 | Emergency (ER) | payer OTHER ==
[2021-09-06 14:05] VITALS: BP 130/89; PULSE 93; TEMP 98.1; BMI 34.5
[2021-09-06 16:50] LABS: ALBUMIN 2.6 g/dl (3.4-5.0); BLOOD UREA NITROGEN 34.8 mg/dL (7-18); CALCIUM 9.3 mg/dL (8.5-10.1)
[2021-09-06 16:53] LABS: EPI CELLS 30 /uL (0-25.1); HYALINE CASTS 1 /uL (0-3.1); URINE APPEARANCE CLEAR; URINE BACTERIA 148 /uL (0-1359); URINE BILIRUBIN NEGATIVE (NEGATIVE); URINE COLOR YELLOW; URINE GLUCOSE (UA) 3+ (NEGATIVE); URINE KETONE NEGATIVE (NEGATIVE); URINE LEUK ESTERASE 1+ (NEGATIVE); URINE NITRITE NEGATIVE (NEGATIVE); URINE PROTEIN 3+ (NEGATIVE); URINE RBC 33 /uL (0-23.9); URINE UROBILINOGEN 0.2 mg/dL (0.2-1.0); URINE WBC 99 /uL (0-25.8)
[2021-09-06 16:54] LABS: CREATININE 2.1 mg/dL (0.55-1.3)
[2021-09-06 16:55] LABS: BILIRUBIN,TOTAL 0.4 mg/dL (0.2-1); TOT PROT 7.7 g/dl (6.4-8.2)
[2021-09-06] MEDS ORDERED: CLINDAMYCIN 600MG PREMIX IVPB 600 MG/50 ML BAG IVPB ONE ×2 (18:34→19:10)
[2021-09-06 18:39] LABS: HEMOGLOBIN 13.6 GM/dL (10.7-15.3); MCH 30.8 pg (25.7-33.7); MEAN CELL VOLUME 90.8 fl (80-96); MEAN PLT VOLUME 8.8 fl (7.5-11.1); PLATELET COUNT 267 10^3/uL (134-434); RBC 4.41 M/mm3 (3.60-5.2); RDW 14.6 % (11.6-15.6); WHITE BLOOD COUNT 11.1 K/mm3 (4.0-10.0)
[2021-09-06 22:55] LABS: PLATELET ESTIMATE NORMAL
== END 2021-09-06 21:29 | disposition left against medical advice (07) ==
LOC: JER 13:44
DX: N61.1 Abscess of the breast and nipple (principal); N39.0 Urinary tract infection, site not specified
CPT/HCPCS: 36415; 80053; 81003; 82272; 83605; 84443; 84484; 85025; 87086; 93005; 93010; 99284-25; C9803; U0003; U0005

== ENCOUNTER 2021-09-23 15:25 | Observation (INO) | payer OTHER ==
[2021-09-23] MEDS ORDERED: FLUCONAZOLE 50 MG TABLET PO ONE (17:39)
[2021-09-23 17:54] LABS: EPI CELLS 29 /uL (0-25.1); HYALINE CASTS 2 /uL (0-3.1); URINE APPEARANCE CLOUDY; URINE BACTERIA 1265 /uL (0-1359); URINE BILIRUBIN NEGATIVE (NEGATIVE); URINE COLOR YELLOW; URINE GLUCOSE (UA) 3+ (NEGATIVE); URINE KETONE NEGATIVE (NEGATIVE); URINE LEUK ESTERASE TRACE (NEGATIVE); URINE NITRITE NEGATIVE (NEGATIVE); URINE PROTEIN 3+ (NEGATIVE); URINE RBC 26 /uL (0-23.9); URINE UROBILINOGEN 0.2 mg/dL (0.2-1.0); URINE WBC 203 /uL (0-25.8)
[2021-09-23] MEDS ORDERED: FLUCONAZOLE 150 MG TABLET PO ONE (18:05)
[2021-09-23] MEDS ORDERED: CIPROFLOXACIN 500 MG TABLET (RESTRICTED TO ID) PO ONE (18:18)
[2021-09-23 18:41] LABS: BASO % 0.4 % (0-2.0); EOS % 1.3 % (0-4.5); HEMATOCRIT 38.3 % (32.4-45.2); LYMPH % 53.8 % (8-40); MCH 30.6 pg (25.7-33.7); MCHC 33.9 g/dl (32.0-36.0); MEAN CELL VOLUME 90.3 fl (80-96); MONO % 3.5 % (3.8-10.2); RBC 4.24 M/mm3 (3.60-5.2); RDW 14.5 % (11.6-15.6); WHITE BLOOD COUNT 17.1 K/mm3 (4.0-10.0)
[2021-09-23 18:59] LABS: CALCIUM 9.1 mg/dL (8.5-10.1); CHLORIDE 95 mmol/L (98-107); SODIUM 130 mmol/L (136-145)
[2021-09-23 19:01] LABS: ALBUMIN 2.6 g/dl (3.4-5.0); ANION GAP 10 MMOL/L (8-16); BLOOD UREA NITROGEN 46.7 mg/dL (7-18); CO2 24 mmol/L (21-32)
[2021-09-23 19:03] LABS: CREATININE 2.5 mg/dL (0.55-1.3); SGOT/AST 24 U/L (15-37); SGPT/ALT 12 U/L (13-61)
[2021-09-23 19:06] LABS: ALK PHOS 154 U/L (45-117); BILIRUBIN,TOTAL 0.3 mg/dL (0.2-1); TOT PROT 7.3 g/dl (6.4-8.2)
[2021-09-23 19:09] LABS: GLUCOSE,RANDOM 530 mg/dL (74-106)
[2021-09-23 20:03] LABS: PLATELET ESTIMATE NORMAL
[2021-09-23 20:04] LABS: MEAN PLT VOLUME 9.9 fl (7.5-11.1); PLATELET COUNT 268 10^3/uL (134-434)
[2021-09-23] MEDS ORDERED: INSULIN REGULAR HUMAN 100 UNITS/ML *VIAL SQ ONE (21:16)
[2021-09-23] MEDS ORDERED: INSULIN (NOVOLOG) ASPART 100 UNITS/ML 10ML VIAL SQ ONE (21:28)
[2021-09-23] MEDS ORDERED: ACETAMINOPHEN 325 MG TABLET (FP) PO PRN (22:10)
[2021-09-23] MEDS ORDERED: POLYETHYLENE GLYCOL (HEALTHYLAX) 3350 17 GM PACKET PO PRN (22:10)
[2021-09-24 02:16] VITALS: BMI 34.2
[2021-09-24] MEDS ORDERED: LORATADINE 10 MG TABLET PO PRN (03:08)
[2021-09-24] MEDS ORDERED: DOCUSATE SODIUM 100 MG CAPSULE (FP) PO PRN (03:08)
[2021-09-24] MEDS ORDERED: AMMONIUM LACTATE 12% LOTION 225 GM BOTTLE TP SCH (03:15)
[2021-09-24] MEDS: HEPARIN NA (PORCINE) 5,000 UNITS/ML 1ML VIAL SQ SCH ×3 (06:15→21:06)
[2021-09-24] MEDS: INSULIN SLIDING SCALE (NOVOLOG) 1 VIAL SQ SCH ×4 (06:15→21:07)
[2021-09-24] MEDS ORDERED: LEVOTHYROXINE NA 50 MCG TABLET (FP) PO SCH (07:45)
[2021-09-24 07:52] LABS: IRON SERUM 69 ug/dL (50-175); TOTAL IRON BINDING CAPACITY 266 ug/dL (250-450)
[2021-09-24 08:20] LABS: RETICULOCYTES 2.57 % (0.5-1.5)
[2021-09-24 08:56] LABS: HEMOGLOBIN 13.5 GM/dL (10.7-15.3); INR 0.96 (0.83-1.09); MCHC 34.7 g/dl (32.0-36.0); MEAN CELL VOLUME 89.4 fl (80-96); MEAN PLT VOLUME 8.6 fl (7.5-11.1); PLATELET COUNT 274 10^3/uL (134-434); PROTHROMBIN TIME (PATIENT) 11.2 SEC (9.7-13.0); RBC 4.36 M/mm3 (3.60-5.2); WHITE BLOOD COUNT 14.3 K/mm3 (4.0-10.0)
[2021-09-24 08:57] LABS: RETICULOCYTES 2.37 % (0.5-1.5)
[2021-09-24 08:59] LABS: ACTIVATED PTT 34.1 SECONDS (25.2-36.5)
[2021-09-24 09:29] LABS: CALCIUM 9.1 mg/dL (8.5-10.1)
[2021-09-24] MEDS ORDERED: FLU VACC QS2021-22(6MOS UP)/PF 60 MCG/0.5 ML SYRINGE IM ONE (09:30)
[2021-09-24 09:36] LABS: CREATININE 2.4 mg/dL (0.55-1.3)
[2021-09-24 09:46] LABS: ANISOCYTOSIS 0; HELMET CELLS 0; HOWELL-JOLLY BODIES 0; MACROCYTOSIS 0; OVALOCYTE 0; PLATELET ESTIMATE NORMAL; ROULEAU 0; SICKELED CELLS 0; TARGET CELLS 0; TEAR DROP CELLS 0; TOXIC GRANULATION 0
[2021-09-24] MEDS ORDERED: LURASIDONE HCL 20 MG TABLET PO SCH (10:00)
[2021-09-24] MEDS ORDERED: VALSARTAN 40 MG TABLET PO SCH (10:00)
[2021-09-24] MEDS ORDERED: PATIENT'S OWN MEDICATION (NON-FORMULARY) (Insulin Glargine,Hum.Rec.Anlog [Basaglar Kwikpen SQ SCH (10:00)
[2021-09-24] MEDS ORDERED: CITALOPRAM HYDROBROMIDE 20 MG TABLET PO SCH (10:00)
[2021-09-24] MEDS ORDERED: FUROSEMIDE 20 MG TABLET (FP) PO SCH (10:00)
[2021-09-24] MEDS ORDERED: SOLIFENACIN SUCCINATE 5 MG TAB PO SCH (10:00)
[2021-09-24] MEDS ORDERED: EMTRICITAB/RILPIVIRI/TENOF ALA (ODEFSEY) TABLET PO SCH (10:00)
[2021-09-24] MEDS ORDERED: PATIENT'S OWN MEDICATION (NON-FORMULARY) (Olopatadine Hcl [Olopatadine Hcl] 2.5 ML Drops) OU SCH (10:00)
[2021-09-24] MEDS ORDERED: PT OWN MED DRAWER 7, Y5N ONE (10:15)
[2021-09-24] MEDS: CLOTRIMAZOLE 1% CREAM TP SCH ×2 (10:26→21:07)
[2021-09-24] MEDS: TRIAMCINOLONE ACET 0.025% CREAM 15 GM TUBE TP SCH ×2 (10:27→21:06)
[2021-09-24] MEDS: MUPIROCIN CA 2% TOPICAL CREAM 15 GM TUBE TP SCH ×2 (10:28→21:06)
[2021-09-24] MEDS: BRIMONIDINE TARTRATE 0.1% OPHTHALMIC 5 ML BOTTLE OU SCH ×2 (10:30→21:06)
[2021-09-24] MEDS: CARVEDILOL 3.125 MG TABLET (FP) PO SCH ×2 (10:31→21:06)
[2021-09-24] MEDS: AMMONIUM LACTATE 12% LOTION 225 GM BOTTLE TP SCH ×2 (10:31→21:07)
[2021-09-24] MEDS: TIMOLOL 0.5% OPHTHALMIC SOL 5 ML BOTTLE OU SCH ×2 (10:32→21:07)
[2021-09-24] MEDS ORDERED: INSULIN (LEVEMIR) 100 UNITS/ML UNITS SQ ONE ×3 (18:48→20:28)
[2021-09-24] MEDS ORDERED: INSULIN SLIDING SCALE (NOVOLOG) 1 VIAL SQ ONE (20:28)
[2021-09-24 21:01] VITALS: BP 128/72; PULSE 90; TEMP 98.7
[2021-09-24] MEDS ORDERED: DOXEPIN HCL 25 MG CAPSULE PO SCH (22:00)
[2021-09-24] MEDS ORDERED: ROSUVASTATIN CA 20 MG TABLET (FP) PO SCH (22:00)
[2021-09-24] MEDS ORDERED: INSULIN (NOVOLOG) ASPART 100 UNITS/ML 10ML VIAL SQ ONE (23:53)
== END 2021-09-24 20:55 | disposition home or self-care (01) ==
LOC: JER 15:25 → INTOOBSV 21:42 → JERBED 21:42 → J6S 09-24 01:21 → J5S 09-24 12:36
PROVIDERS: ADMIT Internal Medicine; ATTEND Internal Medicine
PROC: 3E0234Z Introduction of Serum, Toxoid and Vaccine into Muscle, Percutaneous Approach (ICD-10-PCS; principal; 2021-09-23)
PROC: 3E013VG Introduction of Insulin into Subcutaneous Tissue, Percutaneous Approach (ICD-10-PCS; 2021-09-23)
DX: I13.10 Hypertensive heart and chronic kidney disease without heart failure, with stage 1 through stage 4 chronic kidney disease, or unspecified chronic kidney disease (principal); N17.9 Acute kidney failure, unspecified; B37.3 Candidiasis of vulva and vagina; E11.22 Type 2 diabetes mellitus with diabetic chronic kidney disease; N18.9 Chronic kidney disease, unspecified; B20 Human immunodeficiency virus [HIV] disease; E78.5 Hyperlipidemia, unspecified; Z88.8 Allergy status to other drugs, medicaments and biological substances; Z91.018 Allergy to other foods; E03.9 Hypothyroidism, unspecified
CPT/HCPCS: 36415; 80048; 80053; 81003; 82962; 83540; 83550; 84443; 85025; 85045; 85610; 85730; 87040; 87086; 90686; 93005; 93010; 96372; 99285-25; C9803; G0378; J1644; U0003; U0005

== ENCOUNTER 2021-11-22 15:02 | Emergency (ER) | payer OTHER ==
[2021-11-22 15:15] VITALS: BP 129/73; PULSE 103; TEMP 97.8; BMI 35.1
== END 2021-11-22 17:30 | disposition left against medical advice (07) ==
LOC: JER 15:02
DX: R05.1 Acute cough (principal)
CPT/HCPCS: 99281-25

== ENCOUNTER 2021-11-28 04:21 | Emergency (ER) | payer OTHER ==
[2021-11-28 05:06] VITALS: BMI 35.1
[2021-11-28] MEDS ORDERED: ACETAMINOPHEN 1000 MG/100 ML BAG IVPB ONE (07:27)
[2021-11-28] MEDS ORDERED: LIDOCAINE 5% TOPICAL PATCH TP ONE (07:27)
[2021-11-28] MEDS ORDERED: LIDOCAINE 5% TOPICAL PATCH ONE (08:14)
[2021-11-28] MEDS ORDERED: ACETAMINOPHEN INJECTION 100 ML IVPB ONE (08:14)
[2021-11-28 08:35] LABS: HEMATOCRIT 40.5 % (32.4-45.2); HEMOGLOBIN 13.4 GM/dL (10.7-15.3); MCH 29.8 pg (25.7-33.7); MCHC 33.1 g/dl (32.0-36.0); MEAN PLT VOLUME 8.7 fl (7.5-11.1); PLATELET COUNT 298 10^3/uL (134-434); WHITE BLOOD COUNT 12.5 K/mm3 (4.0-10.0)
[2021-11-28 08:53] LABS: CALCIUM 8.8 mg/dL (8.5-10.1)
[2021-11-28 08:54] LABS: ALBUMIN 2.4 g/dl (3.4-5.0); BLOOD UREA NITROGEN 37.5 mg/dL (7-18); MAGNESIUM 2.3 mg/dL (1.8-2.4)
[2021-11-28 08:56] LABS: CREATININE 1.9 mg/dL (0.55-1.3)
[2021-11-28 08:58] LABS: BILIRUBIN,TOTAL 0.2 mg/dL (0.2-1); TOT PROT 6.6 g/dl (6.4-8.2)
[2021-11-28 12:38] LABS: EPI CELLS 14 /uL (0-25.1); HYALINE CASTS 1 /uL (0-3.1); URINE APPEARANCE CLEAR; URINE BACTERIA 41 /uL (0-1359); URINE BILIRUBIN NEGATIVE (NEGATIVE); URINE COLOR YELLOW; URINE GLUCOSE (UA) 3+ (NEGATIVE); URINE KETONE NEGATIVE (NEGATIVE); URINE LEUK ESTERASE NEGATIVE (NEGATIVE); URINE NITRITE NEGATIVE (NEGATIVE); URINE PROTEIN 3+ (NEGATIVE); URINE RBC 12 /uL (0-23.9); URINE UROBILINOGEN 0.2 mg/dL (0.2-1.0); URINE WBC 29 /uL (0-25.8)
[2021-11-28 13:00] VITALS: BP 141/93; PULSE 105; TEMP 97.9
[2021-11-28] MEDS ORDERED: LIDOCAINE PATCH REMOVAL MC SCH (22:00)
== END 2021-11-28 14:55 | disposition home or self-care (01) ==
LOC: JER 04:21
PROC: 3E033GC Introduction of Other Therapeutic Substance into Peripheral Vein, Percutaneous Approach (ICD-10-PCS; principal; 2021-11-28)
DX: R42 Dizziness and giddiness (principal)
CPT/HCPCS: 36415; 71045-TC-FY; 80053; 81003; 83735; 84484; 85025; 87086; 93005; 93010; 96374; 99285-25; C9803-CS; U0003; U0005

== ENCOUNTER 2021-12-16 16:55 | Emergency (ER) | payer OTHER ==
[2021-12-16 17:07] VITALS: BP 138/86; TEMP 99.1; BMI 35.9
[2021-12-16] MEDS ORDERED: FLUCONAZOLE 150 MG TABLET PO ONE ×2 (19:47→19:51)
== END 2021-12-16 20:00 | disposition home or self-care (01) ==
LOC: FER 16:55
DX: B37.3 Candidiasis of vulva and vagina (principal)
CPT/HCPCS: 99283-25

== ENCOUNTER 2022-02-17 11:20 | Emergency (ER) | payer OTHER ==
[2022-02-17 11:42] VITALS: BP 100/67; PULSE 100; TEMP 97.7; BMI 34.4
== END 2022-02-17 12:05 | disposition home or self-care (01) ==
LOC: JERFT 11:20 → JER 11:20 → JERFT 12:05
DX: L02.412 Cutaneous abscess of left axilla (principal)
CPT/HCPCS: 82962; 99283-25

== ENCOUNTER 2022-04-18 10:39 | Observation (INO) | payer OTHER ==
[2022-04-18 10:51] VITALS: BMI 35.9
[2022-04-18] MEDS ORDERED: ACETAMINOPHEN 1000 MG/100 ML BAG IVPB ONE (12:07)
[2022-04-18] MEDS ORDERED: ACETAMINOPHEN INJECTION 100 ML IVPB ONE (12:11)
[2022-04-18 13:08] LABS: HEMATOCRIT 40.4 % (32.4-45.2); HEMOGLOBIN 13.7 GM/dL (10.7-15.3); MCH 30.4 pg (25.7-33.7); MCHC 33.9 g/dl (32.0-36.0); MEAN CELL VOLUME 89.6 fl (80-96); MEAN PLT VOLUME 8.4 fl (7.5-11.1); PLATELET COUNT 282 10^3/uL (134-434); RBC 4.51 M/mm3 (3.60-5.2); RDW 14.8 % (11.6-15.6); WHITE BLOOD COUNT 12.9 K/mm3 (4.0-10.0)
[2022-04-18 13:29] LABS: CHLORIDE 108 mmol/L (98-107); SODIUM 141 mmol/L (136-145)
[2022-04-18 13:32] LABS: CALCIUM 8.6 mg/dL (8.5-10.1)
[2022-04-18 13:33] LABS: ALBUMIN 2.3 g/dl (3.4-5.0); ANION GAP 8 MMOL/L (8-16); BLOOD UREA NITROGEN 48.8 mg/dL (7-18); CO2 25 mmol/L (21-32); GLUCOSE,RANDOM 54 mg/dL (74-106)
[2022-04-18 13:36] LABS: SGOT/AST 35 U/L (15-37); SGPT/ALT 15 U/L (13-61)
[2022-04-18 13:38] LABS: BILIRUBIN,TOTAL 0.4 mg/dL (0.2-1); TOT PROT 6.6 g/dl (6.4-8.2)
[2022-04-18 13:39] LABS: ALK PHOS 147 U/L (45-117)
[2022-04-18 14:58] LABS: ANISOCYTOSIS 2+; MACROCYTOSIS 2+; TEAR DROP CELLS 1+
[2022-04-18] MEDS ORDERED: ASPIRIN 325 MG TABLET PO ONE (20:36)
[2022-04-18] MEDS ORDERED: ASPIRIN 325 MG TABLET ONE (20:48)
[2022-04-19] MEDS ORDERED: LEVOTHYROXINE NA 50 MCG TABLET (FP) PO SCH (07:00)
[2022-04-19 07:05] LABS: HEMATOCRIT 38.9 % (32.4-45.2); HEMOGLOBIN 12.5 GM/dL (10.7-15.3); MCH 29.3 pg (25.7-33.7); MCHC 32.3 g/dl (32.0-36.0); MEAN CELL VOLUME 90.7 fl (80-96); MEAN PLT VOLUME 8.7 fl (7.5-11.1); PLATELET COUNT 310 10^3/uL (134-434); RBC 4.28 M/mm3 (3.60-5.2); RDW 15.4 % (11.6-15.6); WHITE BLOOD COUNT 11.4 K/mm3 (4.0-10.0)
[2022-04-19 07:23] LABS: CHLORIDE 106 mmol/L (98-107); SODIUM 141 mmol/L (136-145)
[2022-04-19 07:30] LABS: ALBUMIN 2.1 g/dl (3.4-5.0); ANION GAP 8 MMOL/L (8-16); BLOOD UREA NITROGEN 47.6 mg/dL (7-18); CALCIUM 8.3 mg/dL (8.5-10.1); CO2 27 mmol/L (21-32); GLUCOSE,RANDOM 78 mg/dL (74-106); MAGNESIUM 2.2 mg/dL (1.8-2.4)
[2022-04-19 07:33] LABS: BILIRUBIN,TOTAL 0.2 mg/dL (0.2-1); CHOLESTEROL 345 mg/dL (50-200); CREATININE 3.1 mg/dL (0.55-1.3); SGOT/AST 20 U/L (15-37); SGPT/ALT 13 U/L (13-61); TRIGLYCERIDES 286 mg/dL (0-150)
[2022-04-19 07:34] LABS: ALK PHOS 136 U/L (45-117); LDL CHOLESTEROL (ONLY SJRH) 217 mg/dL (5-100)
[2022-04-19 07:44] LABS: HDL CHOLESTEROL 59 mg/dL (40-60)
[2022-04-19] MEDS ORDERED: CARVEDILOL 3.125 MG TABLET (FP) ONE (08:23)
[2022-04-19] MEDS ORDERED: CITALOPRAM HYDROBROMIDE 10 MG TABLET ONE (08:24)
[2022-04-19] MEDS ORDERED: ASPIRIN 81 MG CHEWABLE TABLETS ONE (08:24)
[2022-04-19] MEDS ORDERED: FUROSEMIDE 20 MG TABLET (FP) ONE (08:24)
[2022-04-19] MEDS ORDERED: DOCUSATE SODIUM 100 MG CAPSULE (FP) PO ONE (08:24)
[2022-04-19] MEDS ORDERED: LEVOTHYROXINE NA 50 MCG TABLET (FP) ONE (08:24)
[2022-04-19] MEDS ORDERED: VALSARTAN 80 MG TABLET ONE (08:25)
[2022-04-19 09:53] LABS: ANISOCYTOSIS 0; HELMET CELLS 0; HOWELL-JOLLY BODIES 0; MACROCYTOSIS 0; OVALOCYTE 0; ROULEAU 0; SICKELED CELLS 0; TARGET CELLS 0; TEAR DROP CELLS 0; TOXIC GRANULATION 0
[2022-04-19] MEDS ORDERED: POLYETHYLENE GLYCOL (HEALTHYLAX) 3350 17 GM PACKET PO SCH (10:00)
[2022-04-19] MEDS ORDERED: CARVEDILOL 3.125 MG TABLET (FP) PO SCH (10:00)
[2022-04-19] MEDS ORDERED: VALSARTAN 40 MG TABLET PO SCH (10:00)
[2022-04-19] MEDS ORDERED: PATIENT'S OWN MEDICATION (NON-FORMULARY) (Olopatadine Hcl [Pataday] 2.5 ML Drops) OU SCH (10:00)
[2022-04-19] MEDS ORDERED: TIMOLOL 0.5% OPHTHALMIC SOL 5 ML BOTTLE OU SCH (10:00)
[2022-04-19] MEDS ORDERED: BRIMONIDINE TARTRATE 0.1% OPHTHALMIC 5 ML BOTTLE OU SCH (10:00)
[2022-04-19] MEDS ORDERED: CITALOPRAM HYDROBROMIDE 20 MG TABLET PO SCH (10:00)
[2022-04-19] MEDS ORDERED: DOCUSATE SODIUM 100 MG CAPSULE (FP) PO SCH (10:00)
[2022-04-19] MEDS ORDERED: FUROSEMIDE 20 MG TABLET (FP) PO SCH (10:00)
[2022-04-19] MEDS ORDERED: SOLIFENACIN SUCCINATE 5 MG TAB PO SCH (10:00)
[2022-04-19] MEDS ORDERED: EMTRICITAB/RILPIVIRI/TENOF ALA (ODEFSEY) TABLET PO SCH (10:00)
[2022-04-19] MEDS ORDERED: ASPIRIN 81 MG CHEWABLE TABLETS PO SCH (10:00)
[2022-04-19] MEDS ORDERED: LURASIDONE HCL 20 MG TABLET PO SCH (10:00)
[2022-04-19] MEDS ORDERED: ACETAMINOPHEN INJECTION 100 ML IVPB ONE (10:14)
[2022-04-19] MEDS ORDERED: ACETAMINOPHEN 1000 MG/100 ML BAG IVPB ONE (10:45)
[2022-04-19 11:38] VITALS: PULSE 77
[2022-04-19] MEDS ORDERED: POTASSIUM CHLORIDE TABS 20 MEQ TABLET.ER (FP) PO ONE (12:05)
[2022-04-19] MEDS ORDERED: HEPARIN NA (PORCINE) 5,000 UNITS/ML 1ML VIAL ONE (12:14)
[2022-04-19] MEDS ORDERED: HEPARIN NA (PORCINE) 5,000 UNITS/ML 1ML VIAL SQ SCH (14:00)
[2022-04-19 17:03] VITALS: BP 110/74; TEMP 98.1
[2022-04-19] MEDS ORDERED: ROSUVASTATIN CA 40 MG TABLET PO SCH (22:00)
[2022-04-19] MEDS ORDERED: DOXEPIN HCL 50 MG CAPSULE PO SCH (22:00)
[2022-04-19] MEDS ORDERED: LATANOPROST 0.005% OPHTH SOLN 2.5ML BOTTLE OU SCH (22:00)
[2022-04-19] MEDS ORDERED: ROSUVASTATIN CA 20 MG TABLET PO SCH (22:00)
== END 2022-04-19 17:12 | disposition home or self-care (01) ==
LOC: JER 10:39 → JERBED 17:08 → INTOOBSV 17:08 → UNDOADMOB 17:08 → JERBED 04-19 15:36
PROVIDERS: ADMIT Internal Medicine; ATTEND Internal Medicine
PROC: 3E033NZ Introduction of Analgesics, Hypnotics, Sedatives into Peripheral Vein, Percutaneous Approach (ICD-10-PCS; principal; 2022-04-19)
PROC: 3E023GC Introduction of Other Therapeutic Substance into Muscle, Percutaneous Approach (ICD-10-PCS; 2022-04-19)
DX: I11.0 Hypertensive heart disease with heart failure (principal); I25.10 Atherosclerotic heart disease of native coronary artery without angina pectoris; Z21 Asymptomatic human immunodeficiency virus [HIV] infection status; E66.9 Obesity, unspecified; Z68.35 Body mass index [BMI] 35.0-35.9, adult; L02.91 Cutaneous abscess, unspecified; Z20.822 Contact with and (suspected) exposure to COVID-19; N17.9 Acute kidney failure, unspecified; E03.9 Hypothyroidism, unspecified; R68.83 Chills (without fever); M19.90 Unspecified osteoarthritis, unspecified site; Z95.5 Presence of coronary angioplasty implant and graft; F19.10 Other psychoactive substance abuse, uncomplicated; E11.65 Type 2 diabetes mellitus with hyperglycemia; Z79.4 Long term (current) use of insulin; Z87.891 Personal history of nicotine dependence; Z88.1 Allergy status to other antibiotic agents; Z91.018 Allergy to other foods; Z88.8 Allergy status to other drugs, medicaments and biological substances
CPT/HCPCS: 36415; 71046-TC-FY; 76775-TC; 80053; 80061; 82962; 83735; 84443; 84484; 85025; 93005; 93010; 93306-TC; 96372; 96374; 96375; 99285-25; C9803-CS; G0378; J1644; U0003; U0005

== ENCOUNTER 2022-05-02 09:34 | Emergency (ER) | payer OTHER ==
[2022-05-02 10:01] VITALS: BP 140/78; PULSE 98; TEMP 98.5; BMI 35.1
[2022-05-02 11:13] LABS: EPI CELLS 13 /uL (0-25.1); HYALINE CASTS 1 /uL (0-3.1); PH,URINE 6.5 (5.0-8.0); URINE APPEARANCE CLEAR; URINE BACTERIA 105 /uL (0-1359); URINE BILIRUBIN NEGATIVE (NEGATIVE); URINE COLOR YELLOW; URINE GLUCOSE (UA) 3+ (NEGATIVE); URINE KETONE NEGATIVE (NEGATIVE); URINE LEUK ESTERASE NEGATIVE (NEGATIVE); URINE NITRITE NEGATIVE (NEGATIVE); URINE PROTEIN 4+ (NEGATIVE); URINE RBC 10 /uL (0-23.9); URINE UROBILINOGEN 0.2 mg/dL (0.2-1.0); URINE WBC 9 /uL (0-25.8)
== END 2022-05-02 11:46 | disposition home or self-care (01) ==
LOC: JERFT 09:34
DX: A60.9 Anogenital herpesviral infection, unspecified (principal)
CPT/HCPCS: 36415; 81003; 87070; 87077; 87086; 87186; 87205; 87491; 87591; 99283-25

== ENCOUNTER 2022-05-26 11:30 | Emergency (ER) | payer OTHER ==
[2022-05-26] MEDS ORDERED: SODIUM CHLORIDE 0.9% 500 ML INFUS.BAG IV ONE ×2 (12:13→17:03)
[2022-05-26 12:18] VITALS: BMI 34.2
[2022-05-26 13:08] LABS: VENOUS BASE EXCESS -2.1 mmol/L (-2-2); VENOUS PH 7.342 (7.310-7.410)
[2022-05-26 13:09] LABS: BASO % 0.9 % (0-2.0); EOS % 1.7 % (0-4.5); HEMATOCRIT 39.9 % (32.4-45.2); HEMOGLOBIN 13.3 GM/dL (10.7-15.3); LYMPH % 44.5 % (8-40); MCH 30.4 pg (25.7-33.7); MCHC 33.4 g/dl (32.0-36.0); MEAN CELL VOLUME 90.9 fl (80-96); MEAN PLT VOLUME 9.1 fl (7.5-11.1); MONO % 4.2 % (3.8-10.2); NEUT % 48.7 % (42.8-82.8); PLATELET COUNT 252 10^3/uL (134-434); RBC 4.39 M/mm3 (3.60-5.2); RDW 15.6 % (11.6-15.6); WHITE BLOOD COUNT 10.2 K/mm3 (4.0-10.0)
[2022-05-26 13:31] LABS: EPI CELLS 6 /uL (0-25.1); HYALINE CASTS 0 /uL (0-3.1); URINE APPEARANCE CLEAR; URINE BACTERIA 89 /uL (0-1359); URINE BILIRUBIN NEGATIVE (NEGATIVE); URINE COLOR YELLOW; URINE GLUCOSE (UA) 3+ (NEGATIVE); URINE KETONE NEGATIVE (NEGATIVE); URINE LEUK ESTERASE NEGATIVE (NEGATIVE); URINE NITRITE NEGATIVE (NEGATIVE); URINE PROTEIN 3+ (NEGATIVE); URINE RBC 6 /uL (0-23.9); URINE UROBILINOGEN 0.2 mg/dL (0.2-1.0); URINE WBC 10 /uL (0-25.8)
[2022-05-26 13:34] LABS: CHLORIDE 96 mmol/L (98-107); SODIUM 129 mmol/L (136-145)
[2022-05-26 13:37] LABS: CALCIUM 8.8 mg/dL (8.5-10.1)
[2022-05-26 13:38] LABS: ALBUMIN 2.3 g/dl (3.4-5.0); BLOOD UREA NITROGEN 38.3 mg/dL (7-18); CO2 27 mmol/L (21-32)
[2022-05-26 13:41] LABS: CREATININE 3.4 mg/dL (0.55-1.3); SGOT/AST 61 U/L (15-37)
[2022-05-26 13:42] LABS: TOT PROT 7.2 g/dl (6.4-8.2)
[2022-05-26 13:43] LABS: BILIRUBIN,TOTAL 0.5 mg/dL (0.2-1)
[2022-05-26 13:44] LABS: ALK PHOS 212 U/L (45-117)
[2022-05-26 14:05] LABS: ANION GAP 6 MMOL/L (8-16); GLUCOSE,RANDOM 569 mg/dL (74-106); SGPT/ALT 17 U/L (13-61)
[2022-05-26] MEDS ORDERED: INSULIN REGULAR HUMAN 100 UNITS/ML *VIAL SQ ONE (15:47)
[2022-05-26] MEDS ORDERED: INSULIN (NOVOLOG) ASPART 100 UNITS/ML 10ML VIAL SQ ONE (16:01)
[2022-05-26 17:21] LABS: CHLORIDE 102 mmol/L (98-107); SODIUM 138 mmol/L (136-145)
[2022-05-26 17:23] LABS: CALCIUM 9.2 mg/dL (8.5-10.1)
[2022-05-26 17:24] LABS: ALBUMIN 2.5 g/dl (3.4-5.0); ANION GAP 8 MMOL/L (8-16); CO2 27 mmol/L (21-32)
[2022-05-26 17:27] LABS: CREATININE 3.3 mg/dL (0.55-1.3); SGOT/AST 21 U/L (15-37); SGPT/ALT 14 U/L (13-61)
[2022-05-26 17:29] LABS: BILIRUBIN,TOTAL 0.3 mg/dL (0.2-1)
[2022-05-26 17:30] LABS: ALK PHOS 226 U/L (45-117)
[2022-05-26 17:31] VITALS: BP 143/75; PULSE 82; TEMP 98.2
[2022-05-26 17:35] LABS: GLUCOSE,RANDOM 438 mg/dL (74-106)
== END 2022-05-26 19:47 | disposition home or self-care (01) ==
LOC: JER 11:30
DX: E11.22 Type 2 diabetes mellitus with diabetic chronic kidney disease (principal); N18.4 Chronic kidney disease, stage 4 (severe)
CPT/HCPCS: 36415; 80053; 81003; 82010; 82803; 82962; 85025; 87077; 87086; 93005; 93010; 99284-25

== ENCOUNTER 2022-08-02 07:18 | Inpatient (IN) | payer OTHER ==
[2022-08-02 07:53] VITALS: BMI 31.3
[2022-08-02 09:21] LABS: BASO % 0.8 % (0-2.0); EOS % 2.9 % (0-4.5); HEMATOCRIT 37.6 % (32.4-45.2); HEMOGLOBIN 12.6 GM/dL (10.7-15.3); LYMPH % 48.1 % (8-40); MCH 29.5 pg (25.7-33.7); MCHC 33.5 g/dl (32.0-36.0); MEAN PLT VOLUME 8.4 fl (7.5-11.1); MONO % 3.3 % (3.8-10.2); NEUT % 44.9 % (42.8-82.8); PLATELET COUNT 305 10^3/uL (134-434); RBC 4.27 M/mm3 (3.60-5.2); RDW 13.9 % (11.6-15.6); WHITE BLOOD COUNT 11.2 K/mm3 (4.0-10.0)
[2022-08-02 09:29] LABS: EPI CELLS 23 /uL (0-25.1); HYALINE CASTS 2 /uL (0-3.1); URINE APPEARANCE CLEAR; URINE BACTERIA 577 /uL (0-1359); URINE BILIRUBIN NEGATIVE (NEGATIVE); URINE COLOR YELLOW; URINE GLUCOSE (UA) 2+ (NEGATIVE); URINE KETONE NEGATIVE (NEGATIVE); URINE LEUK ESTERASE 1+ (NEGATIVE); URINE NITRITE NEGATIVE (NEGATIVE); URINE PROTEIN 4+ (NEGATIVE); URINE RBC 17 /uL (0-23.9); URINE UROBILINOGEN 0.2 mg/dL (0.2-1.0); URINE WBC 189 /uL (0-25.8)
[2022-08-02 09:44] LABS: CHLORIDE 106 mmol/L (98-107); SODIUM 138 mmol/L (136-145)
[2022-08-02 09:46] LABS: CALCIUM 8.8 mg/dL (8.5-10.1)
[2022-08-02 09:47] LABS: ALBUMIN 2.4 g/dl (3.4-5.0); ANION GAP 9 MMOL/L (8-16); CO2 23 mmol/L (21-32); GLUCOSE,RANDOM 279 mg/dL (74-106)
[2022-08-02 09:50] LABS: CREATININE 4.6 mg/dL (0.55-1.3); SGOT/AST 17 U/L (15-37); SGPT/ALT 13 U/L (13-61)
[2022-08-02 09:52] LABS: BILIRUBIN,TOTAL 0.3 mg/dL (0.2-1)
[2022-08-02 09:53] LABS: ALK PHOS 153 U/L (45-117)
[2022-08-02] MEDS ORDERED: SULFAMETHOXAZOLE/TRIMETHOPRIM 800MG/160MG D.S. TABLET PO ONE (12:21)
[2022-08-02] MEDS ORDERED: SULFAMETHOXAZOLE/TRIMETHOPRIM 800MG/160MG D.S. TABLET ONE (12:47)
[2022-08-02] MEDS ORDERED: SODIUM CHLORIDE 1,000 ML IV SCH (14:15)
[2022-08-02] MEDS: ROSUVASTATIN CA 10 MG TABLET PO SCH (22:38)
[2022-08-02] MEDS: CARVEDILOL 3.125 MG TABLET (FP) PO SCH (22:38)
[2022-08-02] MEDS: HEPARIN NA (PORCINE) 5,000 UNITS/ML 1ML VIAL SQ SCH (22:38)
[2022-08-02] MEDS: INSULIN SLIDING SCALE (NOVOLOG) 1 VIAL SQ SCH (22:41)
[2022-08-02] MEDS: INSULIN (LEVEMIR) 100 UNITS/ML UNITS SQ SCH (22:42)
[2022-08-03] MEDS ORDERED: ACETAMINOPHEN 1000 MG/100 ML BAG IVPB ONE (03:42)
[2022-08-03] MEDS ORDERED: ACETAMINOPHEN 325 MG TABLET (FP) PO ONE (03:48)
[2022-08-03] MEDS: LEVOTHYROXINE NA 50 MCG TABLET (FP) PO SCH (06:34)
[2022-08-03] MEDS: HEPARIN NA (PORCINE) 5,000 UNITS/ML 1ML VIAL SQ SCH ×3 (06:35→21:42)
[2022-08-03] MEDS: INSULIN SLIDING SCALE (NOVOLOG) 1 VIAL SQ SCH ×5 (06:39→21:46)
[2022-08-03] MEDS ORDERED: ACETAMINOPHEN 1000 MG/100 ML BAG IVPB PRN (08:49)
[2022-08-03] MEDS ORDERED: LIDOCAINE 5% TOPICAL PATCH TP SCH (10:00)
[2022-08-03] MEDS ORDERED: PATIENT'S OWN MEDICATION (NON-FORMULARY) (Dolutegravir/Rilpivirine [Juluca 50-25 Mg Tablet PO SCH (10:00)
[2022-08-03] MEDS: CARVEDILOL 3.125 MG TABLET (FP) PO SCH ×2 (10:05→21:38)
[2022-08-03] MEDS: CITALOPRAM HYDROBROMIDE 20 MG TABLET PO SCH (10:05)
[2022-08-03 10:57] LABS: BASO % 0.5 % (0-2.0); EOS % 2.3 % (0-4.5); HEMATOCRIT 37.7 % (32.4-45.2); HEMOGLOBIN 12.8 GM/dL (10.7-15.3); LYMPH % 48.3 % (8-40); MCH 30.1 pg (25.7-33.7); MCHC 33.9 g/dl (32.0-36.0); MEAN CELL VOLUME 88.9 fl (80-96); MEAN PLT VOLUME 8.6 fl (7.5-11.1); MONO % 3.9 % (3.8-10.2); PLATELET COUNT 325 10^3/uL (134-434); RBC 4.24 M/mm3 (3.60-5.2); RDW 14.1 % (11.6-15.6); WHITE BLOOD COUNT 11.9 K/mm3 (4.0-10.0)
[2022-08-03 11:02] LABS: INR 1.05 (0.83-1.09); PROTHROMBIN TIME (PATIENT) 12.1 SEC (9.7-13.0)
[2022-08-03 11:05] LABS: ACTIVATED PTT 31.5 SECONDS (25.2-36.5)
[2022-08-03 11:20] LABS: ALBUMIN 2.3 g/dl (3.4-5.0); BLOOD UREA NITROGEN 56.6 mg/dL (7-18); CALCIUM 9.1 mg/dL (8.5-10.1)
[2022-08-03 11:21] LABS: MAGNESIUM 2.3 mg/dL (1.8-2.4)
[2022-08-03 11:23] LABS: CREATININE 4.4 mg/dL (0.55-1.3)
[2022-08-03 11:25] LABS: BILIRUBIN,TOTAL 0.2 mg/dL (0.2-1); TOT PROT 6.6 g/dl (6.4-8.2)
[2022-08-03] MEDS: RILPIVIRINE HCL 25 MG TABLET PO SCH (12:15)
[2022-08-03] MEDS: DOLUTEGRAVIR SODIUM 50 MG TABLET (NON-FORMULARY) PO SCH (12:15)
[2022-08-03] MEDS: ROSUVASTATIN CA 10 MG TABLET PO SCH (21:39)
[2022-08-03] MEDS: INSULIN (LEVEMIR) 100 UNITS/ML UNITS SQ SCH (21:44)
[2022-08-03] MEDS: LIDOCAINE PATCH REMOVAL MC SCH (23:00)
[2022-08-04] MEDS ORDERED: MELATONIN 5 MG TABLETS PO PRN (00:11)
[2022-08-04] MEDS ORDERED: ACETAMINOPHEN 325 MG TABLET (FP) PO PRN (00:12)
[2022-08-04] MEDS: LEVOTHYROXINE NA 50 MCG TABLET (FP) PO SCH (06:46)
[2022-08-04] MEDS: HEPARIN NA (PORCINE) 5,000 UNITS/ML 1ML VIAL SQ SCH ×3 (06:47→21:28)
[2022-08-04] MEDS: INSULIN SLIDING SCALE (NOVOLOG) 1 VIAL SQ SCH ×4 (06:48→21:28)
[2022-08-04 07:02] VITALS: RESP 18
[2022-08-04] MEDS ORDERED: LIDOCAINE 5% TOPICAL PATCH TP SCH (07:54)
[2022-08-04] MEDS: TIMOLOL 0.5% OPHTHALMIC SOL 5 ML BOTTLE OU SCH ×2 (09:28→21:27)
[2022-08-04] MEDS: BRIMONIDINE TARTRATE 0.1% OPHTHALMIC 5 ML BOTTLE OU SCH ×2 (09:28→21:26)
[2022-08-04] MEDS: DOLUTEGRAVIR SODIUM 50 MG TABLET (NON-FORMULARY) PO SCH (09:29)
[2022-08-04] MEDS: RILPIVIRINE HCL 25 MG TABLET PO SCH (09:29)
[2022-08-04] MEDS: FUROSEMIDE 40 MG TABLET (FP) PO SCH (09:30)
[2022-08-04] MEDS: CARVEDILOL 3.125 MG TABLET (FP) PO SCH ×2 (09:30→21:26)
[2022-08-04] MEDS: CITALOPRAM HYDROBROMIDE 20 MG TABLET PO SCH (09:30)
[2022-08-04] MEDS: POLYETHYLENE GLYCOL (HEALTHYLAX) 3350 17 GM PACKET PO SCH (09:30)
[2022-08-04] MEDS: VALSARTAN 40 MG TABLET PO SCH (09:30)
[2022-08-04] MEDS: ASPIRIN COATED 81 MG TABLET.EC PO SCH (09:30)
[2022-08-04 12:08] LABS: MCH 29.8 pg (25.7-33.7); MCHC 33.3 g/dl (32.0-36.0); MEAN CELL VOLUME 89.5 fl (80-96); MEAN PLT VOLUME 8.8 fl (7.5-11.1); PLATELET COUNT 321 10^3/uL (134-434); RBC 4.35 M/mm3 (3.60-5.2); RDW 14.1 % (11.6-15.6); WHITE BLOOD COUNT 9.6 K/mm3 (4.0-10.0)
[2022-08-04 12:16] LABS: CALCIUM 8.8 mg/dL (8.5-10.1)
[2022-08-04 12:17] LABS: ALBUMIN 2.3 g/dl (3.4-5.0); MAGNESIUM 2.2 mg/dL (1.8-2.4)
[2022-08-04 12:20] LABS: CREATININE 4.2 mg/dL (0.55-1.3); PHOSPHOROUS 4.1 mg/dL (2.5-4.9)
[2022-08-04 12:21] LABS: BILIRUBIN,TOTAL 0.3 mg/dL (0.2-1); TOT PROT 6.8 g/dl (6.4-8.2)
[2022-08-04] MEDS: ACETAMINOPHEN 1000 MG/100 ML BAG IVPB SCH ×2 (13:26→18:22)
[2022-08-04] MEDS: PATIENT'S OWN MEDICATION (NON-FORMULARY) (Betamethasone/Propylene Glyc [Betamethasone Dp A TP SCH (18:49)
[2022-08-04] MEDS ORDERED: ACETAMINOPHEN 500 MG TABLET (FP) PO PRN (19:21)
[2022-08-04] MEDS: ROSUVASTATIN CA 20 MG TABLET PO SCH (21:26)
[2022-08-04] MEDS: LATANOPROST 0.005% OPHTH SOLN 2.5ML BOTTLE OU SCH (21:27)
[2022-08-04] MEDS: LIDOCAINE PATCH REMOVAL MC SCH (21:29)
[2022-08-04] MEDS: INSULIN (LEVEMIR) 100 UNITS/ML UNITS SQ SCH (21:29)
[2022-08-05] MEDS: ACETAMINOPHEN 1000 MG/100 ML BAG IVPB SCH (01:32)
[2022-08-05] MEDS: LEVOTHYROXINE NA 50 MCG TABLET (FP) PO SCH (06:54)
[2022-08-05] MEDS: HEPARIN NA (PORCINE) 5,000 UNITS/ML 1ML VIAL SQ SCH ×3 (06:54→22:01)
[2022-08-05] MEDS: LIDOCAINE PATCH REMOVAL MC SCH (06:59)
[2022-08-05] MEDS: INSULIN SLIDING SCALE (NOVOLOG) 1 VIAL SQ SCH ×4 (07:12→22:03)
[2022-08-05] MEDS: VALSARTAN 40 MG TABLET PO SCH (10:14)
[2022-08-05] MEDS: CITALOPRAM HYDROBROMIDE 20 MG TABLET PO SCH (10:14)
[2022-08-05] MEDS: FUROSEMIDE 40 MG TABLET (FP) PO SCH (10:14)
[2022-08-05] MEDS: POLYETHYLENE GLYCOL (HEALTHYLAX) 3350 17 GM PACKET PO SCH (10:14)
[2022-08-05] MEDS: BRIMONIDINE TARTRATE 0.1% OPHTHALMIC 5 ML BOTTLE OU SCH ×2 (10:15→22:00)
[2022-08-05] MEDS: CARVEDILOL 3.125 MG TABLET (FP) PO SCH ×2 (10:15→22:01)
[2022-08-05] MEDS: RILPIVIRINE HCL 25 MG TABLET PO SCH (10:17)
[2022-08-05] MEDS: DOLUTEGRAVIR SODIUM 50 MG TABLET (NON-FORMULARY) PO SCH (10:17)
[2022-08-05] MEDS: ASPIRIN COATED 81 MG TABLET.EC PO SCH (10:17)
[2022-08-05] MEDS: TIMOLOL 0.5% OPHTHALMIC SOL 5 ML BOTTLE OU SCH ×2 (10:18→22:00)
[2022-08-05 12:28] LABS: HEMATOCRIT 38.7 % (32.4-45.2); HEMOGLOBIN 12.7 GM/dL (10.7-15.3); MCH 29.4 pg (25.7-33.7); MCHC 32.9 g/dl (32.0-36.0); MEAN CELL VOLUME 89.5 fl (80-96); MEAN PLT VOLUME 9.2 fl (7.5-11.1); PLATELET COUNT 311 10^3/uL (134-434); RBC 4.33 M/mm3 (3.60-5.2); RDW 14.2 % (11.6-15.6); WHITE BLOOD COUNT 10.9 K/mm3 (4.0-10.0)
[2022-08-05 13:05] LABS: ALBUMIN 2.2 g/dl (3.4-5.0); BLOOD UREA NITROGEN 59.9 mg/dL (7-18); CALCIUM 8.8 mg/dL (8.5-10.1); MAGNESIUM 2.2 mg/dL (1.8-2.4)
[2022-08-05 13:07] LABS: PHOSPHOROUS 3.8 mg/dL (2.5-4.9)
[2022-08-05 13:08] LABS: CREATININE 4.2 mg/dL (0.55-1.3)
[2022-08-05 13:09] LABS: BILIRUBIN,TOTAL 0.5 mg/dL (0.2-1); TOT PROT 6.4 g/dl (6.4-8.2)
[2022-08-05] MEDS ORDERED: LIDOCAINE PATCH REMOVAL MC SCH (13:28)
[2022-08-05] MEDS: LATANOPROST 0.005% OPHTH SOLN 2.5ML BOTTLE OU SCH (22:00)
[2022-08-05] MEDS ORDERED: LIDOCAINE 5% TOPICAL PATCH TP SCH (22:00)
[2022-08-05] MEDS: ROSUVASTATIN CA 20 MG TABLET PO SCH (22:02)
[2022-08-05] MEDS: INSULIN (LEVEMIR) 100 UNITS/ML UNITS SQ SCH (22:02)
[2022-08-05] MEDS ORDERED: ACETAMINOPHEN 1000 MG/100 ML BAG IVPB ONE (23:59)
[2022-08-06] MEDS ORDERED: ACETAMINOPHEN 325 MG TABLET (FP) PO ONE (00:36)
[2022-08-06] MEDS: HEPARIN NA (PORCINE) 5,000 UNITS/ML 1ML VIAL SQ SCH ×2 (07:03→14:48)
[2022-08-06] MEDS: INSULIN SLIDING SCALE (NOVOLOG) 1 VIAL SQ SCH ×2 (07:03→11:19)
[2022-08-06] MEDS: LEVOTHYROXINE NA 50 MCG TABLET (FP) PO SCH (07:03)
[2022-08-06 08:06] VITALS: TEMP 98.3
[2022-08-06] MEDS: CARVEDILOL 3.125 MG TABLET (FP) PO SCH (10:13)
[2022-08-06] MEDS: POLYETHYLENE GLYCOL (HEALTHYLAX) 3350 17 GM PACKET PO SCH (10:13)
[2022-08-06] MEDS: FUROSEMIDE 40 MG TABLET (FP) PO SCH (10:14)
[2022-08-06] MEDS: ASPIRIN COATED 81 MG TABLET.EC PO SCH (10:14)
[2022-08-06] MEDS: CITALOPRAM HYDROBROMIDE 20 MG TABLET PO SCH (10:14)
[2022-08-06] MEDS: VALSARTAN 40 MG TABLET PO SCH (10:14)
[2022-08-06] MEDS: DOLUTEGRAVIR SODIUM 50 MG TABLET (NON-FORMULARY) PO SCH (10:15)
[2022-08-06] MEDS: RILPIVIRINE HCL 25 MG TABLET PO SCH (10:15)
[2022-08-06] MEDS: TIMOLOL 0.5% OPHTHALMIC SOL 5 ML BOTTLE OU SCH (10:16)
[2022-08-06] MEDS: BRIMONIDINE TARTRATE 0.1% OPHTHALMIC 5 ML BOTTLE OU SCH (10:17)
[2022-08-06 12:07] VITALS: BP 157/83; PULSE 71
[2022-08-06 12:44] LABS: HEMATOCRIT 39.3 % (32.4-45.2); HEMOGLOBIN 13.2 GM/dL (10.7-15.3); MCH 29.9 pg (25.7-33.7); MCHC 33.5 g/dl (32.0-36.0); MEAN CELL VOLUME 89.1 fl (80-96); MEAN PLT VOLUME 8.9 fl (7.5-11.1); PLATELET COUNT 310 10^3/uL (134-434); RBC 4.41 M/mm3 (3.60-5.2); RDW 13.9 % (11.6-15.6)
[2022-08-06 13:08] LABS: ALBUMIN 2.3 g/dl (3.4-5.0); BLOOD UREA NITROGEN 61.2 mg/dL (7-18); MAGNESIUM 2.2 mg/dL (1.8-2.4)
[2022-08-06 13:11] LABS: BILIRUBIN,TOTAL 0.2 mg/dL (0.2-1); CREATININE 4.1 mg/dL (0.55-1.3); PHOSPHOROUS 3.5 mg/dL (2.5-4.9); TOT PROT 6.8 g/dl (6.4-8.2)
[2022-08-06] MEDS: PATIENT'S OWN MEDICATION (NON-FORMULARY) (Betamethasone/Propylene Glyc [Betamethasone Dp A TP SCH (15:12)
== END 2022-08-06 16:20 | disposition home or self-care (01) | DRG 552 ==
LOC: JER 07:18 → JERBED 13:34 → J5S 22:18
PROVIDERS: ADMIT Internal Medicine; ATTEND Internal Medicine
DX: M47.896 Other spondylosis, lumbar region (principal); I13.0 Hypertensive heart and chronic kidney disease with heart failure and stage 1 through stage 4 chronic kidney disease, or unspecified chronic kidney disease; N17.9 Acute kidney failure, unspecified; R45.851 Suicidal ideations; J98.11 Atelectasis; E78.5 Hyperlipidemia, unspecified; I25.10 Atherosclerotic heart disease of native coronary artery without angina pectoris; I73.9 Peripheral vascular disease, unspecified; E03.9 Hypothyroidism, unspecified; N18.9 Chronic kidney disease, unspecified; I50.9 Heart failure, unspecified; F31.9 Bipolar disorder, unspecified; E11.22 Type 2 diabetes mellitus with diabetic chronic kidney disease; E66.01 Morbid (severe) obesity due to excess calories; M54.50 Low back pain, unspecified; R82.71 Bacteriuria; Z21 Asymptomatic human immunodeficiency virus [HIV] infection status; I25.5 Ischemic cardiomyopathy; H40.9 Unspecified glaucoma; Z68.31 Body mass index [BMI] 31.0-31.9, adult; N28.1 Cyst of kidney, acquired; G47.00 Insomnia, unspecified; G89.29 Other chronic pain
CPT/HCPCS: 36415; 71045-TC-FY; 72100-TC-FY; 73521-TC-FY; 76775-TC; 80053; 80307; 81003; 82436; 82570; 82962; 83036; 83735; 84100; 84133; 84156; 84300; 84439; 84443; 84540; 85025; 85027; 85610; 85730; 87086; 87186; 93005; 93010; 93886; 97116-GP; 97162-GP; 99285-25; C9803-CS; J1644; U0003; U0005

== ENCOUNTER 2022-09-23 04:04 | Day surgery (SDC) | payer OTHER ==
[2022-09-22 10:20] VITALS: BMI 31.4
[2022-09-23] MEDS ORDERED: LIDOCAINE HCL 1%, 10 MG/ML (20ML VIAL) ONE (15:11)
[2022-09-23] MEDS ORDERED: HEPARIN NA (PORCINE) 5,000 UNITS/ML 1ML VIAL ONE ×2 (15:11→15:12)
[2022-09-23] MEDS ORDERED: PAPAVERINE HCL 30 MG/1 ML 10 ML VIAL NR ONE (15:11)
[2022-09-23] MEDS ORDERED: SUCCINYLCHOLINE CHLORIDE 200 MG/10 ML SYRINGE ONE (15:55)
[2022-09-23] MEDS ORDERED: PROPOFOL 20 ML ONE (15:55)
[2022-09-23] MEDS ORDERED: LIDOCAINE HCL/PF 2% SDV 5ML VIAL ONE (15:55)
[2022-09-23] MEDS ORDERED: ceFAZolin SODIUM 1 GM VIAL IVPB ONE (16:13)
[2022-09-23] MEDS ORDERED: LIDOCAINE HCL 1%, 10 MG/ML (20ML VIAL) INF ONE ×2 (16:20)
[2022-09-23] MEDS ORDERED: ONDANSETRON 4 MG/2 ML VIAL IVPUSH PRN (17:50)
[2022-09-23 18:52] VITALS: RESP 20
[2022-09-23 19:01] VITALS: TEMP 97
[2022-09-23 20:03] VITALS: BP 114/60; PULSE 85
== END 2022-09-23 20:15 | disposition home or self-care (01) ==
LOC: JASU-SURG 04:04
PROVIDERS: ATTEND Surgery
PROC: 03180ZD Bypass Left Brachial Artery to Upper Arm Vein, Open Approach (ICD-10-PCS; principal; 2022-09-23 15:30)
DX: I12.0 Hypertensive chronic kidney disease with stage 5 chronic kidney disease or end stage renal disease (principal); E11.22 Type 2 diabetes mellitus with diabetic chronic kidney disease; N18.6 End stage renal disease
CPT/HCPCS: 82962; 94760; J1644

== ENCOUNTER 2022-10-04 09:24 | Observation (INO) | payer OTHER ==
[2022-10-04] MEDS ORDERED: ACETAMINOPHEN 500 MG TABLET (FP) PO ONE (10:32)
[2022-10-04 11:51] LABS: BASO % 0.8 % (0-2.0); EOS % 2.4 % (0-4.5); HEMATOCRIT 31.1 % (32.4-45.2); HEMOGLOBIN 10.4 GM/dL (10.7-15.3); LYMPH % 43.1 % (8-40); MCH 28.9 pg (25.7-33.7); MCHC 33.4 g/dl (32.0-36.0); MEAN CELL VOLUME 86.7 fl (80-96); MEAN PLT VOLUME 7.5 fl (7.5-11.1); NEUT % 49.7 % (42.8-82.8); PLATELET COUNT 291 10^3/uL (134-434); RBC 3.58 M/mm3 (3.60-5.2); RDW 15.3 % (11.6-15.6); WHITE BLOOD COUNT 11.6 K/mm3 (4.0-10.0)
[2022-10-04 12:00] LABS: INR 1.02 (0.83-1.09); PROTHROMBIN TIME (PATIENT) 11.7 SEC (9.7-13.0)
[2022-10-04 12:03] LABS: ACTIVATED PTT 34.2 SECONDS (25.2-36.5)
[2022-10-04 12:22] LABS: CALCIUM 8.4 mg/dL (8.5-10.1)
[2022-10-04 12:23] LABS: ALBUMIN 2.5 g/dl (3.4-5.0); BLOOD UREA NITROGEN 56.3 mg/dL (7-18)
[2022-10-04 12:26] LABS: CREATININE 3.8 mg/dL (0.55-1.3)
[2022-10-04 12:28] LABS: BILIRUBIN,TOTAL 0.3 mg/dL (0.2-1); TOT PROT 6.4 g/dl (6.4-8.2)
[2022-10-04 12:31] LABS: N-TERMINAL BNP 1234.1 pg/ml (5-125)
[2022-10-04] MEDS ORDERED: FUROSEMIDE 40 MG/4 ML INJECTABLE VIAL IVPUSH ONE (13:35)
[2022-10-04] MEDS ORDERED: FUROSEMIDE 40 MG/4 ML INJECTABLE VIAL ONE (13:51)
[2022-10-04] MEDS: INSULIN SLIDING SCALE (NOVOLOG) 1 VIAL SQ SCH ×2 (17:30→22:04)
[2022-10-04] MEDS ORDERED: ACETAMINOPHEN 325 MG TABLET (FP) PO PRN (17:33)
[2022-10-04] MEDS: HEPARIN NA (PORCINE) 5,000 UNITS/ML 1ML VIAL SQ SCH (22:04)
[2022-10-05 01:19] VITALS: BMI 33.1
[2022-10-05] MEDS: HEPARIN NA (PORCINE) 5,000 UNITS/ML 1ML VIAL SQ SCH ×3 (06:13→21:26)
[2022-10-05] MEDS: INSULIN SLIDING SCALE (NOVOLOG) 1 VIAL SQ SCH ×4 (06:14→21:27)
[2022-10-05 08:31] LABS: EOS % 3.1 % (0-4.5); HEMATOCRIT 33.8 % (32.4-45.2); HEMOGLOBIN 10.9 GM/dL (10.7-15.3); LYMPH % 42.3 % (8-40); MCH 27.8 pg (25.7-33.7); MCHC 32.3 g/dl (32.0-36.0); MONO % 4.2 % (3.8-10.2); NEUT % 49.4 % (42.8-82.8); PLATELET COUNT 322 10^3/uL (134-434); RBC 3.93 M/mm3 (3.60-5.2); RDW 15.2 % (11.6-15.6); WHITE BLOOD COUNT 12.2 K/mm3 (4.0-10.0)
[2022-10-05 08:36] LABS: INR 1.05 (0.83-1.09); PROTHROMBIN TIME (PATIENT) 12.1 SEC (9.7-13.0)
[2022-10-05 08:38] LABS: ACTIVATED PTT 33.9 SECONDS (25.2-36.5)
[2022-10-05 09:09] LABS: CALCIUM 8.5 mg/dL (8.5-10.1)
[2022-10-05 09:10] LABS: ALBUMIN 2.5 g/dl (3.4-5.0); BLOOD UREA NITROGEN 49.9 mg/dL (7-18); MAGNESIUM 2.2 mg/dL (1.8-2.4)
[2022-10-05 09:13] LABS: CREATININE 3.8 mg/dL (0.55-1.3); PHOSPHOROUS 4.5 mg/dL (2.5-4.9)
[2022-10-05 09:15] LABS: BILIRUBIN,TOTAL 0.4 mg/dL (0.2-1); TOT PROT 6.3 g/dl (6.4-8.2)
[2022-10-05] MEDS ORDERED: POTASSIUM CHLORIDE TABS 20 MEQ TABLET.ER (FP) PO ONE (11:22)
[2022-10-05] MEDS ORDERED: PATIENT'S OWN MEDICATION (NON-FORMULARY) (Dolutegravir/Rilpivirine [Juluca 50-25 Mg Tablet PO SCH (11:30)
[2022-10-05] MEDS: CARVEDILOL 3.125 MG TABLET (FP) PO SCH ×2 (13:19→21:26)
[2022-10-05] MEDS: LEVOTHYROXINE NA 50 MCG TABLET (FP) PO SCH (13:19)
[2022-10-05] MEDS: VALSARTAN 80 MG TABLET PO SCH (13:19)
[2022-10-05] MEDS: LIDOCAINE 5% TOPICAL PATCH TP SCH (13:25)
[2022-10-05] MEDS: DOLUTEGRAVIR SODIUM 50 MG TABLET (NON-FORMULARY) PO SCH (14:34)
[2022-10-05] MEDS: RILPIVIRINE HCL 25 MG TABLET PO SCH (14:34)
[2022-10-05] MEDS: DOXEPIN HCL 25 MG CAPSULE PO SCH (14:57)
[2022-10-05] MEDS ORDERED: HALOPERIDOL 2 MG TABLET PO SCH (22:00)
[2022-10-05] MEDS ORDERED: LIDOCAINE PATCH REMOVAL MC SCH (22:00)
[2022-10-05] MEDS ORDERED: ROSUVASTATIN CA 20 MG TABLET PO SCH (22:00)
[2022-10-05] MEDS: HALOPERIDOL 1 MG TABLET PO SCH (22:47)
[2022-10-06] MEDS: HEPARIN NA (PORCINE) 5,000 UNITS/ML 1ML VIAL SQ SCH ×2 (06:00→15:00)
[2022-10-06] MEDS: INSULIN SLIDING SCALE (NOVOLOG) 1 VIAL SQ SCH ×2 (06:01→12:32)
[2022-10-06] MEDS: LEVOTHYROXINE NA 50 MCG TABLET (FP) PO SCH (06:34)
[2022-10-06] MEDS ORDERED: CITALOPRAM HYDROBROMIDE 20 MG TABLET PO SCH (07:00)
[2022-10-06 08:08] LABS: HEMATOCRIT 32.7 % (32.4-45.2); HEMOGLOBIN 10.7 GM/dL (10.7-15.3); MCH 28.2 pg (25.7-33.7); MCHC 32.6 g/dl (32.0-36.0); MEAN CELL VOLUME 86.7 fl (80-96); MEAN PLT VOLUME 7.8 fl (7.5-11.1); PLATELET COUNT 313 10^3/uL (134-434); RBC 3.78 M/mm3 (3.60-5.2); RDW 15.3 % (11.6-15.6); WHITE BLOOD COUNT 11.2 K/mm3 (4.0-10.0)
[2022-10-06 08:23] LABS: CALCIUM 8.3 mg/dL (8.5-10.1)
[2022-10-06 08:24] LABS: ALBUMIN 2.3 g/dl (3.4-5.0); BLOOD UREA NITROGEN 49.4 mg/dL (7-18)
[2022-10-06 08:27] LABS: CREATININE 3.9 mg/dL (0.55-1.3)
[2022-10-06 08:29] LABS: BILIRUBIN,TOTAL 0.3 mg/dL (0.2-1)
[2022-10-06] MEDS ORDERED: LIDOCAINE PATCH REMOVAL MC SCH (09:19)
[2022-10-06] MEDS ORDERED: FUROSEMIDE 40 MG/4 ML INJECTABLE VIAL IVPUSH SCH (10:00)
[2022-10-06] MEDS: VALSARTAN 80 MG TABLET PO SCH (10:19)
[2022-10-06] MEDS: HALOPERIDOL 1 MG TABLET PO SCH (10:19)
[2022-10-06] MEDS: CARVEDILOL 3.125 MG TABLET (FP) PO SCH (10:19)
[2022-10-06] MEDS: RILPIVIRINE HCL 25 MG TABLET PO SCH (10:19)
[2022-10-06] MEDS: DOLUTEGRAVIR SODIUM 50 MG TABLET (NON-FORMULARY) PO SCH (10:19)
[2022-10-06] MEDS: DOXEPIN HCL 25 MG CAPSULE PO SCH (10:19)
[2022-10-06] MEDS: LIDOCAINE 5% TOPICAL PATCH TP SCH (10:21)
[2022-10-06 14:40] VITALS: BP 124/67; PULSE 78; RESP 18; TEMP 98.7
[2022-10-07] MEDS ORDERED: FUROSEMIDE 40 MG TABLET (FP) PO SCH (10:00)
== END 2022-10-06 17:13 | disposition home or self-care (01) ==
LOC: JER 09:24 → INTOOBSV 13:35 → UNDOADMOB 13:35 → JERBED 13:35 → J4W 21:26 → JERBED 10-05 13:54 → J4W 10-05 13:54
PROVIDERS: ADMIT Internal Medicine; ATTEND Internal Medicine
PROC: 3E033GC Introduction of Other Therapeutic Substance into Peripheral Vein, Percutaneous Approach (ICD-10-PCS; principal; 2022-10-05)
PROC: 3E013VG Introduction of Insulin into Subcutaneous Tissue, Percutaneous Approach (ICD-10-PCS; 2022-10-05)
DX: I13.0 Hypertensive heart and chronic kidney disease with heart failure and stage 1 through stage 4 chronic kidney disease, or unspecified chronic kidney disease (principal); I50.9 Heart failure, unspecified; N18.9 Chronic kidney disease, unspecified; E11.22 Type 2 diabetes mellitus with diabetic chronic kidney disease; E78.5 Hyperlipidemia, unspecified; F19.10 Other psychoactive substance abuse, uncomplicated; B20 Human immunodeficiency virus [HIV] disease; Z95.5 Presence of coronary angioplasty implant and graft; D72.829 Elevated white blood cell count, unspecified; M19.90 Unspecified osteoarthritis, unspecified site; E66.8 Other obesity; Z68.33 Body mass index [BMI] 33.0-33.9, adult
CPT/HCPCS: 0241U-QW; 36415; 71045-TC-FY; 80053; 82962; 83036; 83735; 83880; 84100; 84443; 84484; 85025; 85027; 85610; 85730; 87040; 93005; 93010; 93308; 93970-TC; 96372; 96374; 96376; 99285-25; G0378; J1644

== ENCOUNTER 2022-10-14 15:24 | Observation (INO) | payer OTHER ==
[2022-10-14 15:50] VITALS: BMI 32.5
[2022-10-14 23:35] LABS: BASO % 0.6 % (0-2.0); EOS % 2.6 % (0-4.5); HEMATOCRIT 31.3 % (32.4-45.2); HEMOGLOBIN 10.1 GM/dL (10.7-15.3); LYMPH % 43.9 % (8-40); MCH 28.1 pg (25.7-33.7); MCHC 32.2 g/dl (32.0-36.0); MEAN CELL VOLUME 87.5 fl (80-96); MEAN PLT VOLUME 8.4 fl (7.5-11.1); MONO % 4.9 % (3.8-10.2); PLATELET COUNT 318 10^3/uL (134-434); RBC 3.57 M/mm3 (3.60-5.2); RDW 15.4 % (11.6-15.6); WHITE BLOOD COUNT 12.6 K/mm3 (4.0-10.0)
[2022-10-15 00:02] LABS: CALCIUM 8.3 mg/dL (8.5-10.1)
[2022-10-15 00:03] LABS: ALBUMIN 2.6 g/dl (3.4-5.0); BLOOD UREA NITROGEN 66.3 mg/dL (7-18)
[2022-10-15 00:06] LABS: CREATININE 5.1 mg/dL (0.55-1.3)
[2022-10-15 00:08] LABS: BILIRUBIN,TOTAL 0.6 mg/dL (0.2-1); TOT PROT 6.4 g/dl (6.4-8.2)
[2022-10-15] MEDS ORDERED: HEPARIN NA (PORCINE) 5,000 UNITS/ML 1ML VIAL ONE ×3 (06:48→23:06)
[2022-10-15] MEDS: HEPARIN NA (PORCINE) 5,000 UNITS/ML 1ML VIAL SQ SCH ×3 (06:55→23:26)
[2022-10-15] MEDS ORDERED: CITALOPRAM HYDROBROMIDE 20 MG TABLET PO SCH (07:00)
[2022-10-15] MEDS ORDERED: CITALOPRAM HYDROBROMIDE 10 MG TABLET PO SCH (07:00)
[2022-10-15] MEDS ORDERED: CITALOPRAM HYDROBROMIDE 10 MG TABLET ONE (07:49)
[2022-10-15] MEDS ORDERED: RILPIVIRINE HCL 25 MG TABLET PO SCH (08:00)
[2022-10-15] MEDS ORDERED: DOLUTEGRAVIR SODIUM 50 MG TABLET (NON-FORMULARY) PO SCH (08:00)
[2022-10-15] MEDS: INSULIN SLIDING SCALE (NOVOLOG) 1 VIAL SQ SCH ×4 (08:13→23:22)
[2022-10-15] MEDS ORDERED: LEVOTHYROXINE NA 50 MCG TABLET (FP) ONE (08:37)
[2022-10-15] MEDS: LEVOTHYROXINE NA 50 MCG TABLET (FP) PO SCH (08:40)
[2022-10-15] MEDS ORDERED: LIDOCAINE 5% TOPICAL PATCH ONE (08:52)
[2022-10-15] MEDS ORDERED: FUROSEMIDE 40 MG/4 ML INJECTABLE VIAL ONE (08:52)
[2022-10-15] MEDS ORDERED: CARVEDILOL 3.125 MG TABLET (FP) ONE ×2 (08:52→23:05)
[2022-10-15] MEDS: CARVEDILOL 3.125 MG TABLET (FP) PO SCH ×2 (09:08→23:26)
[2022-10-15] MEDS: HALOPERIDOL 1 MG TABLET PO SCH ×2 (09:08→23:26)
[2022-10-15] MEDS ORDERED: LIDOCAINE 5% TOPICAL PATCH TP SCH (10:00)
[2022-10-15] MEDS ORDERED: PATIENT'S OWN MEDICATION (NON-FORMULARY) (Dolutegravir/Rilpivirine [Juluca 50-25 Mg Tablet PO SCH (10:00)
[2022-10-15] MEDS ORDERED: FUROSEMIDE 40 MG/4 ML INJECTABLE VIAL IVPUSH SCH (10:00)
[2022-10-15] MEDS ORDERED: LIDOCAINE PATCH REMOVAL MC SCH (22:00)
[2022-10-15] MEDS ORDERED: ROSUVASTATIN CA 20 MG TABLET PO SCH (22:00)
[2022-10-15] MEDS ORDERED: DOXEPIN HCL 25 MG CAPSULE PO SCH (22:00)
[2022-10-16 04:35] VITALS: RESP 18
[2022-10-16] MEDS ORDERED: HEPARIN NA (PORCINE) 5,000 UNITS/ML 1ML VIAL ONE (06:46)
[2022-10-16] MEDS: HEPARIN NA (PORCINE) 5,000 UNITS/ML 1ML VIAL SQ SCH (06:49)
[2022-10-16] MEDS: LEVOTHYROXINE NA 50 MCG TABLET (FP) PO SCH (08:00)
[2022-10-16] MEDS: INSULIN SLIDING SCALE (NOVOLOG) 1 VIAL SQ SCH (08:00)
[2022-10-16 08:47] LABS: HEMATOCRIT 31.2 % (32.4-45.2); HEMOGLOBIN 10.1 GM/dL (10.7-15.3); MCH 28.2 pg (25.7-33.7); MCHC 32.3 g/dl (32.0-36.0); MEAN CELL VOLUME 87.3 fl (80-96); MEAN PLT VOLUME 8.4 fl (7.5-11.1); PLATELET COUNT 333 10^3/uL (134-434); RBC 3.57 M/mm3 (3.60-5.2); RDW 15.4 % (11.6-15.6); WHITE BLOOD COUNT 11.9 K/mm3 (4.0-10.0)
[2022-10-16 08:52] LABS: ALBUMIN 2.4 g/dl (3.4-5.0); BLOOD UREA NITROGEN 61.5 mg/dL (7-18); CALCIUM 8.4 mg/dL (8.5-10.1); MAGNESIUM 2.4 mg/dL (1.8-2.4)
[2022-10-16 08:55] LABS: CREATININE 4.9 mg/dL (0.55-1.3); PHOSPHOROUS 4.3 mg/dL (2.5-4.9)
[2022-10-16 08:57] LABS: BILIRUBIN,TOTAL 0.3 mg/dL (0.2-1); TOT PROT 6.2 g/dl (6.4-8.2)
[2022-10-16 09:25] VITALS: BP 173/97; PULSE 92; TEMP 98.1
== END 2022-10-16 10:37 | disposition home or self-care (01) ==
LOC: JER 15:24 → JERBED 10-15 00:52
PROVIDERS: ADMIT Internal Medicine; ATTEND Internal Medicine
PROC: 3E033GC Introduction of Other Therapeutic Substance into Peripheral Vein, Percutaneous Approach (ICD-10-PCS; principal; 2022-10-15)
PROC: 3E023GC Introduction of Other Therapeutic Substance into Muscle, Percutaneous Approach (ICD-10-PCS; 2022-10-15)
DX: I13.0 Hypertensive heart and chronic kidney disease with heart failure and stage 1 through stage 4 chronic kidney disease, or unspecified chronic kidney disease (principal); E11.22 Type 2 diabetes mellitus with diabetic chronic kidney disease; E11.9 Type 2 diabetes mellitus without complications; B20 Human immunodeficiency virus [HIV] disease; N18.30 Chronic kidney disease, stage 3 unspecified; E03.9 Hypothyroidism, unspecified; R07.89 Other chest pain; F19.10 Other psychoactive substance abuse, uncomplicated; Z88.0 Allergy status to penicillin; Z91.018 Allergy to other foods; Z88.8 Allergy status to other drugs, medicaments and biological substances; Z79.01 Long term (current) use of anticoagulants; N28.9 Disorder of kidney and ureter, unspecified
CPT/HCPCS: 0241U-QW; 36415; 71046-TC-FY; 80053; 82962; 83735; 83880; 84100; 84484; 85025; 85027; 93005; 93010; 96365; 99285-25; G0378; J1644

== ENCOUNTER 2022-11-03 22:55 | Inpatient (IN) | payer OTHER ==
[2022-11-03 23:04] VITALS: BMI 34.0
[2022-11-03] MEDS ORDERED: FUROSEMIDE 40 MG/4 ML INJECTABLE VIAL IVPUSH ONE (23:27)
[2022-11-03] MEDS ORDERED: AZITHROMYCIN IVPB 500 MG in DEXTROSE 5%-WATER - 250 ML IVPB ONE (23:41)
[2022-11-03] MEDS ORDERED: CEFTRIAXONE 1,000 MG in DEXTROSE 5%-WATER - 50 ML IVPB ONE (23:41)
[2022-11-03] MEDS ORDERED: ACETAMINOPHEN 1000 MG/100 ML BAG IVPB ONE (23:46)
[2022-11-03] MEDS ORDERED: FUROSEMIDE 40 MG/4 ML INJECTABLE VIAL ONE (23:52)
[2022-11-03] MEDS ORDERED: CEFTRIAXONE 1 GM/50 ML BAG ONE (23:52)
[2022-11-03] MEDS ORDERED: ACETAMINOPHEN INJECTION 100 ML IVPB ONE (23:52)
[2022-11-03] MEDS ORDERED: AZITHROMYCIN IVPB 500 MG/250 ML BAG IVPB ONE (23:52)
[2022-11-04 00:26] LABS: BASO % 0.4 % (0-2.0); EOS % 1.7 % (0-4.5); HEMATOCRIT 32.2 % (32.4-45.2); HEMOGLOBIN 10.4 GM/dL (10.7-15.3); LYMPH % 19.9 % (8-40); MCHC 32.3 g/dl (32.0-36.0); MEAN CELL VOLUME 86.8 fl (80-96); MONO % 3.1 % (3.8-10.2); NEUT % 74.9 % (42.8-82.8); PLATELET COUNT 386 10^3/uL (134-434); RBC 3.71 M/mm3 (3.60-5.2); RDW 15.3 % (11.6-15.6); WHITE BLOOD COUNT 14.7 K/mm3 (4.0-10.0)
[2022-11-04 00:38] LABS: INR 0.98 (0.83-1.09); PROTHROMBIN TIME (PATIENT) 11.3 SEC (9.7-13.0)
[2022-11-04 00:40] LABS: ACTIVATED PTT 37.7 SECONDS (25.2-36.5)
[2022-11-04] MEDS ORDERED: AZITHROMYCIN IVPB 500 MG/250 ML BAG IVPB ONE (00:43)
[2022-11-04 00:56] LABS: CHLORIDE 97 mmol/L (98-107); SODIUM 133 mmol/L (136-145)
[2022-11-04 00:58] LABS: ALBUMIN 2.9 g/dl (3.4-5.0); ANION GAP 12 MMOL/L (8-16); CALCIUM 8.5 mg/dL (8.5-10.1); CO2 24 mmol/L (21-32); MAGNESIUM 2.7 mg/dL (1.8-2.4)
[2022-11-04 01:01] LABS: CREATININE 5.1 mg/dL (0.55-1.3); SGOT/AST 20 U/L (15-37); SGPT/ALT 17 U/L (13-61)
[2022-11-04 01:03] LABS: BILIRUBIN,TOTAL 0.2 mg/dL (0.2-1); TOT PROT 7.3 g/dl (6.4-8.2)
[2022-11-04 01:04] LABS: ALK PHOS 162 U/L (45-117)
[2022-11-04 01:06] LABS: N-TERMINAL BNP 1629.3 pg/ml (5-125)
[2022-11-04] MEDS ORDERED: DEXAMETHASONE SOD PHOSPHATE 10 MG/1 ML VIAL IVPUSH ONE (01:08)
[2022-11-04] MEDS ORDERED: DEXAMETHASONE SOD PHOSPHATE 10 MG/1 ML VIAL ONE ×2 (01:08→08:37)
[2022-11-04] MEDS ORDERED: ASPIRIN 81 MG CHEWABLE TABLETS PO ONE (01:08)
[2022-11-04] MEDS ORDERED: ASPIRIN 81 MG CHEWABLE TABLETS ONE (01:09)
[2022-11-04 01:32] LABS: GLUCOSE,RANDOM 485 mg/dL (74-106)
[2022-11-04] MEDS ORDERED: INSULIN (NOVOLOG) ASPART 100 UNITS/ML 10ML VIAL SQ ONE (01:33)
[2022-11-04] MEDS ORDERED: INSULIN (LEVEMIR) 100 UNITS/ML UNITS SQ ONE ×2 (03:31→04:27)
[2022-11-04] MEDS ORDERED: HEPARIN NA (PORCINE) 5,000 UNITS/ML 1ML VIAL ONE ×2 (06:06→13:08)
[2022-11-04] MEDS ORDERED: CITALOPRAM HYDROBROMIDE 10 MG TABLET ONE (06:06)
[2022-11-04] MEDS ORDERED: LEVOTHYROXINE NA 50 MCG TABLET (FP) ONE (06:11)
[2022-11-04] MEDS: HEPARIN NA (PORCINE) 5,000 UNITS/ML 1ML VIAL SQ SCH ×3 (06:23→22:59)
[2022-11-04] MEDS: CITALOPRAM HYDROBROMIDE 20 MG TABLET PO SCH (07:00)
[2022-11-04] MEDS: LEVOTHYROXINE NA 50 MCG TABLET (FP) PO SCH (07:01)
[2022-11-04 07:13] LABS: BASO % 0.6 % (0-2.0); HEMATOCRIT 31.3 % (32.4-45.2); HEMOGLOBIN 10.4 GM/dL (10.7-15.3); LYMPH % 16.1 % (8-40); MCH 28.7 pg (25.7-33.7); MCHC 33.3 g/dl (32.0-36.0); MEAN CELL VOLUME 86.1 fl (80-96); MEAN PLT VOLUME 7.9 fl (7.5-11.1); NEUT % 82.3 % (42.8-82.8); PLATELET COUNT 343 10^3/uL (134-434); RBC 3.64 M/mm3 (3.60-5.2); RDW 15.5 % (11.6-15.6); WHITE BLOOD COUNT 10.8 K/mm3 (4.0-10.0)
[2022-11-04 07:38] LABS: ALBUMIN 2.6 g/dl (3.4-5.0); BLOOD UREA NITROGEN 63.3 mg/dL (7-18); CALCIUM 8.5 mg/dL (8.5-10.1); MAGNESIUM 2.7 mg/dL (1.8-2.4)
[2022-11-04] MEDS: INSULIN SLIDING SCALE (NOVOLOG) 1 VIAL SQ SCH ×4 (07:38→23:10)
[2022-11-04 07:40] LABS: CREATININE 5.1 mg/dL (0.55-1.3)
[2022-11-04 07:41] LABS: PHOSPHOROUS 4.4 mg/dL (2.5-4.9)
[2022-11-04 07:42] LABS: BILIRUBIN,TOTAL 0.3 mg/dL (0.2-1)
[2022-11-04] MEDS ORDERED: amLODIPine BESYLATE 10 MG TABLET (FP) ONE (08:37)
[2022-11-04] MEDS ORDERED: VALSARTAN 80 MG TABLET ONE (08:37)
[2022-11-04] MEDS ORDERED: CARVEDILOL 3.125 MG TABLET (FP) ONE (08:37)
[2022-11-04] MEDS ORDERED: LABETALOL HCL 100 MG TABLET (FP) ONE (08:37)
[2022-11-04] MEDS: CARVEDILOL 3.125 MG TABLET (FP) PO SCH ×2 (09:15→22:59)
[2022-11-04] MEDS: amLODIPine BESYLATE 10 MG TABLET (FP) PO SCH (09:15)
[2022-11-04] MEDS: DEXAMETHASONE SOD PHOSPHATE 10 MG/1 ML VIAL IM SCH (09:15)
[2022-11-04] MEDS: HALOPERIDOL 1 MG TABLET PO SCH ×2 (09:47→22:59)
[2022-11-04] MEDS: DOXEPIN HCL 25 MG CAPSULE PO SCH (09:48)
[2022-11-04] MEDS ORDERED: VALSARTAN 80 MG TABLET PO SCH (10:00)
[2022-11-04] MEDS ORDERED: PATIENT'S OWN MEDICATION (NON-FORMULARY) (Dolutegravir/Rilpivirine [Juluca 50-25 Mg Tablet PO SCH (10:00)
[2022-11-04] MEDS ORDERED: LABETALOL HCL 100 MG TABLET (FP) PO SCH (10:00)
[2022-11-04] MEDS ORDERED: DEXAMETHASONE SOD PHOSPHATE 10 MG/1 ML VIAL IM SCH (10:00)
[2022-11-04] MEDS ORDERED: INSULIN (NOVOLOG) ASPART 100 UNITS/ML 10ML VIAL ONE (10:55)
[2022-11-04] MEDS: FUROSEMIDE 40 MG/4 ML INJECTABLE VIAL IVPUSH SCH (16:56)
[2022-11-04] MEDS ORDERED: ROSUVASTATIN CA 20 MG TABLET PO SCH (22:00)
[2022-11-04] MEDS: ROSUVASTATIN CA 10 MG TABLET PO SCH (22:59)
[2022-11-05] MEDS: HEPARIN NA (PORCINE) 5,000 UNITS/ML 1ML VIAL SQ SCH ×3 (06:40→21:49)
[2022-11-05] MEDS: LEVOTHYROXINE NA 50 MCG TABLET (FP) PO SCH (06:41)
[2022-11-05] MEDS: INSULIN SLIDING SCALE (NOVOLOG) 1 VIAL SQ SCH ×4 (06:41→21:49)
[2022-11-05] MEDS: CITALOPRAM HYDROBROMIDE 20 MG TABLET PO SCH ×2 (08:04→09:56)
[2022-11-05] MEDS: FUROSEMIDE 40 MG/4 ML INJECTABLE VIAL IVPUSH SCH (09:55)
[2022-11-05] MEDS: DEXAMETHASONE SOD PHOSPHATE 10 MG/1 ML VIAL IM SCH (09:55)
[2022-11-05] MEDS: amLODIPine BESYLATE 10 MG TABLET (FP) PO SCH (09:56)
[2022-11-05] MEDS: CARVEDILOL 3.125 MG TABLET (FP) PO SCH ×2 (09:56→21:48)
[2022-11-05] MEDS: HALOPERIDOL 1 MG TABLET PO SCH ×2 (09:56→21:48)
[2022-11-05] MEDS: DOLUTEGRAVIR SODIUM 50 MG TABLET (NON-FORMULARY) PO SCH ×2 (09:56→10:13)
[2022-11-05] MEDS: RILPIVIRINE HCL 25 MG TABLET PO SCH ×2 (09:57→10:13)
[2022-11-05] MEDS: DOXEPIN HCL 25 MG CAPSULE PO SCH (11:37)
[2022-11-05] MEDS: ROSUVASTATIN CA 10 MG TABLET PO SCH (21:48)
[2022-11-06] MEDS: HEPARIN NA (PORCINE) 5,000 UNITS/ML 1ML VIAL SQ SCH ×3 (06:08→21:01)
[2022-11-06] MEDS: CITALOPRAM HYDROBROMIDE 20 MG TABLET PO SCH (06:08)
[2022-11-06] MEDS: INSULIN SLIDING SCALE (NOVOLOG) 1 VIAL SQ SCH ×4 (06:08→21:02)
[2022-11-06] MEDS: LEVOTHYROXINE NA 50 MCG TABLET (FP) PO SCH (06:08)
[2022-11-06] MEDS: RILPIVIRINE HCL 25 MG TABLET PO SCH (09:39)
[2022-11-06] MEDS: DOLUTEGRAVIR SODIUM 50 MG TABLET (NON-FORMULARY) PO SCH (09:39)
[2022-11-06] MEDS: DEXAMETHASONE SOD PHOSPHATE 10 MG/1 ML VIAL IM SCH (10:22)
[2022-11-06] MEDS: CARVEDILOL 3.125 MG TABLET (FP) PO SCH ×2 (10:22→21:01)
[2022-11-06] MEDS: amLODIPine BESYLATE 10 MG TABLET (FP) PO SCH (10:22)
[2022-11-06] MEDS: FUROSEMIDE 40 MG/4 ML INJECTABLE VIAL IVPUSH SCH (10:22)
[2022-11-06] MEDS: HALOPERIDOL 1 MG TABLET PO SCH ×2 (10:23→21:00)
[2022-11-06] MEDS: DOXEPIN HCL 25 MG CAPSULE PO SCH (10:24)
[2022-11-06 16:43] LABS: CALCIUM 8.2 mg/dL (8.5-10.1)
[2022-11-06 16:44] LABS: ALBUMIN 2.6 g/dl (3.4-5.0)
[2022-11-06 16:47] LABS: CREATININE 5.3 mg/dL (0.55-1.3)
[2022-11-06 16:48] LABS: BILIRUBIN,TOTAL 0.2 mg/dL (0.2-1); TOT PROT 6.6 g/dl (6.4-8.2)
[2022-11-06] MEDS: ROSUVASTATIN CA 10 MG TABLET PO SCH (21:00)
[2022-11-07] MEDS: HEPARIN NA (PORCINE) 5,000 UNITS/ML 1ML VIAL SQ SCH ×3 (06:01→21:39)
[2022-11-07] MEDS: LEVOTHYROXINE NA 50 MCG TABLET (FP) PO SCH (06:03)
[2022-11-07] MEDS: CITALOPRAM HYDROBROMIDE 20 MG TABLET PO SCH (06:03)
[2022-11-07] MEDS: INSULIN SLIDING SCALE (NOVOLOG) 1 VIAL SQ SCH ×4 (06:07→21:46)
[2022-11-07] MEDS: RILPIVIRINE HCL 25 MG TABLET PO SCH (07:47)
[2022-11-07] MEDS: DOLUTEGRAVIR SODIUM 50 MG TABLET (NON-FORMULARY) PO SCH (07:47)
[2022-11-07 10:09] LABS: BASO % 0.4 % (0-2.0); EOS % 0.8 % (0-4.5); HEMATOCRIT 29.5 % (32.4-45.2); HEMOGLOBIN 9.5 GM/dL (10.7-15.3); LYMPH % 44.1 % (8-40); MCHC 32.2 g/dl (32.0-36.0); MEAN PLT VOLUME 8.6 fl (7.5-11.1); MONO % 5.8 % (3.8-10.2); NEUT % 48.9 % (42.8-82.8); PLATELET COUNT 312 10^3/uL (134-434); RBC 3.39 M/mm3 (3.60-5.2); RDW 15.5 % (11.6-15.6); WHITE BLOOD COUNT 11.7 K/mm3 (4.0-10.0)
[2022-11-07 10:32] LABS: CALCIUM 8.2 mg/dL (8.5-10.1)
[2022-11-07 10:33] LABS: ALBUMIN 2.5 g/dl (3.4-5.0); BLOOD UREA NITROGEN 82.6 mg/dL (7-18)
[2022-11-07 10:36] LABS: CREATININE 5.6 mg/dL (0.55-1.3)
[2022-11-07 10:37] LABS: TOT PROT 6.3 g/dl (6.4-8.2)
[2022-11-07 10:38] LABS: BILIRUBIN,TOTAL 0.3 mg/dL (0.2-1)
[2022-11-07] MEDS: DEXAMETHASONE SOD PHOSPHATE 10 MG/1 ML VIAL IM SCH (10:44)
[2022-11-07] MEDS: FUROSEMIDE 40 MG/4 ML INJECTABLE VIAL IVPUSH SCH (10:44)
[2022-11-07] MEDS: HALOPERIDOL 1 MG TABLET PO SCH ×2 (10:45→21:39)
[2022-11-07] MEDS: DOXEPIN HCL 25 MG CAPSULE PO SCH (10:46)
[2022-11-07] MEDS: amLODIPine BESYLATE 10 MG TABLET (FP) PO SCH (10:46)
[2022-11-07] MEDS: CARVEDILOL 3.125 MG TABLET (FP) PO SCH ×2 (10:46→21:39)
[2022-11-07] MEDS ORDERED: FUROSEMIDE 40 MG/4 ML INJECTABLE VIAL IVPUSH ONE (17:00)
[2022-11-07] MEDS: ROSUVASTATIN CA 10 MG TABLET PO SCH (21:39)
[2022-11-08] MEDS: HEPARIN NA (PORCINE) 5,000 UNITS/ML 1ML VIAL SQ SCH ×3 (06:34→22:03)
[2022-11-08] MEDS: LEVOTHYROXINE NA 50 MCG TABLET (FP) PO SCH (06:35)
[2022-11-08] MEDS: CITALOPRAM HYDROBROMIDE 20 MG TABLET PO SCH (06:35)
[2022-11-08] MEDS: INSULIN SLIDING SCALE (NOVOLOG) 1 VIAL SQ SCH ×4 (06:41→22:03)
[2022-11-08 09:25] LABS: HEMATOCRIT 30.6 % (32.4-45.2); HEMOGLOBIN 9.9 GM/dL (10.7-15.3); MCH 27.9 pg (25.7-33.7); MCHC 32.3 g/dl (32.0-36.0); MEAN CELL VOLUME 86.3 fl (80-96); MEAN PLT VOLUME 8.7 fl (7.5-11.1); PLATELET COUNT 328 10^3/uL (134-434); RBC 3.55 M/mm3 (3.60-5.2); RDW 15.4 % (11.6-15.6); WHITE BLOOD COUNT 12.6 K/mm3 (4.0-10.0)
[2022-11-08 09:52] LABS: CALCIUM 8.5 mg/dL (8.5-10.1)
[2022-11-08 09:53] LABS: ALBUMIN 2.6 g/dl (3.4-5.0); MAGNESIUM 2.2 mg/dL (1.8-2.4)
[2022-11-08 09:54] LABS: BILIRUBIN,TOTAL 0.3 mg/dL (0.2-1); TOT PROT 6.7 g/dl (6.4-8.2)
[2022-11-08 09:56] LABS: CREATININE 5.5 mg/dL (0.55-1.3); PHOSPHOROUS 5.3 mg/dL (2.5-4.9)
[2022-11-08] MEDS: FUROSEMIDE 40 MG/4 ML INJECTABLE VIAL IVPUSH SCH (11:08)
[2022-11-08] MEDS: CARVEDILOL 3.125 MG TABLET (FP) PO SCH ×2 (11:08→22:02)
[2022-11-08] MEDS: amLODIPine BESYLATE 10 MG TABLET (FP) PO SCH (11:09)
[2022-11-08] MEDS: DEXAMETHASONE SOD PHOSPHATE 10 MG/1 ML VIAL IM SCH (11:09)
[2022-11-08] MEDS: RILPIVIRINE HCL 25 MG TABLET PO SCH (11:09)
[2022-11-08] MEDS: DOLUTEGRAVIR SODIUM 50 MG TABLET (NON-FORMULARY) PO SCH (11:10)
[2022-11-08] MEDS: DOXEPIN HCL 25 MG CAPSULE PO SCH (11:10)
[2022-11-08] MEDS: HALOPERIDOL 1 MG TABLET PO SCH ×2 (11:10→22:02)
[2022-11-08] MEDS ORDERED: LACTULOSE 20 GM/30 ML UDC (FOR ORAL USE ONLY) PO ONE (12:14)
[2022-11-08] MEDS: ROSUVASTATIN CA 10 MG TABLET PO SCH (22:02)
[2022-11-08] MEDS: DOCUSATE SODIUM 100 MG CAPSULE (FP) PO SCH (22:02)
[2022-11-08] MEDS ORDERED: INSULIN (LEVEMIR) 100 UNITS/ML UNITS SQ ONE (23:45)
[2022-11-09] MEDS: HEPARIN NA (PORCINE) 5,000 UNITS/ML 1ML VIAL SQ SCH ×3 (06:36→21:44)
[2022-11-09] MEDS: CITALOPRAM HYDROBROMIDE 20 MG TABLET PO SCH (06:37)
[2022-11-09] MEDS: LEVOTHYROXINE NA 50 MCG TABLET (FP) PO SCH (06:37)
[2022-11-09] MEDS: INSULIN SLIDING SCALE (NOVOLOG) 1 VIAL SQ SCH ×4 (06:46→21:44)
[2022-11-09] MEDS ORDERED: LACTULOSE 20 GM/30 ML UDC (FOR ORAL USE ONLY) PO ONE (09:11)
[2022-11-09] MEDS ORDERED: MINERAL OIL ENEMA 133 ML ENEMA RC ONE (09:11)
[2022-11-09 10:14] LABS: HEMATOCRIT 29.7 % (32.4-45.2); HEMOGLOBIN 9.7 GM/dL (10.7-15.3); MCH 27.9 pg (25.7-33.7); MCHC 32.5 g/dl (32.0-36.0); MEAN CELL VOLUME 85.8 fl (80-96); MEAN PLT VOLUME 8.5 fl (7.5-11.1); PLATELET COUNT 307 10^3/uL (134-434); RBC 3.47 M/mm3 (3.60-5.2); RDW 15.7 % (11.6-15.6); WHITE BLOOD COUNT 12.3 K/mm3 (4.0-10.0)
[2022-11-09] MEDS: DEXAMETHASONE SOD PHOSPHATE 10 MG/1 ML VIAL IM SCH (10:35)
[2022-11-09] MEDS: HALOPERIDOL 1 MG TABLET PO SCH ×2 (10:35→21:44)
[2022-11-09] MEDS: DOCUSATE SODIUM 100 MG CAPSULE (FP) PO SCH ×2 (10:35→21:44)
[2022-11-09] MEDS: CARVEDILOL 3.125 MG TABLET (FP) PO SCH ×2 (10:35→21:44)
[2022-11-09] MEDS: DOLUTEGRAVIR SODIUM 50 MG TABLET (NON-FORMULARY) PO SCH (10:35)
[2022-11-09] MEDS: amLODIPine BESYLATE 10 MG TABLET (FP) PO SCH (10:35)
[2022-11-09 10:36] LABS: CALCIUM 8.3 mg/dL (8.5-10.1)
[2022-11-09] MEDS: FUROSEMIDE 40 MG/4 ML INJECTABLE VIAL IVPUSH SCH (10:36)
[2022-11-09 10:37] LABS: BLOOD UREA NITROGEN 88.6 mg/dL (7-18)
[2022-11-09 10:40] LABS: CREATININE 5.2 mg/dL (0.55-1.3); PHOSPHOROUS 4.6 mg/dL (2.5-4.9)
[2022-11-09] MEDS: RILPIVIRINE HCL 25 MG TABLET PO SCH (10:40)
[2022-11-09] MEDS: DOXEPIN HCL 25 MG CAPSULE PO SCH (10:45)
[2022-11-09] MEDS: ROSUVASTATIN CA 10 MG TABLET PO SCH (21:44)
[2022-11-10] MEDS: HEPARIN NA (PORCINE) 5,000 UNITS/ML 1ML VIAL SQ SCH ×3 (06:40→21:50)
[2022-11-10] MEDS: INSULIN SLIDING SCALE (NOVOLOG) 1 VIAL SQ SCH ×4 (06:40→21:50)
[2022-11-10] MEDS: CITALOPRAM HYDROBROMIDE 20 MG TABLET PO SCH (06:40)
[2022-11-10] MEDS: LEVOTHYROXINE NA 50 MCG TABLET (FP) PO SCH (06:40)
[2022-11-10] MEDS: RILPIVIRINE HCL 25 MG TABLET PO SCH (08:30)
[2022-11-10] MEDS: DOLUTEGRAVIR SODIUM 50 MG TABLET (NON-FORMULARY) PO SCH (08:30)
[2022-11-10 09:52] LABS: HEMATOCRIT 31.5 % (32.4-45.2); HEMOGLOBIN 10.4 GM/dL (10.7-15.3); MCH 28.5 pg (25.7-33.7); MEAN CELL VOLUME 86.5 fl (80-96); MEAN PLT VOLUME 8.6 fl (7.5-11.1); PLATELET COUNT 325 10^3/uL (134-434); RBC 3.65 M/mm3 (3.60-5.2); RDW 15.1 % (11.6-15.6); WHITE BLOOD COUNT 15.5 K/mm3 (4.0-10.0)
[2022-11-10] MEDS: DOCUSATE SODIUM 100 MG CAPSULE (FP) PO SCH ×2 (10:15→21:50)
[2022-11-10] MEDS: amLODIPine BESYLATE 10 MG TABLET (FP) PO SCH (10:15)
[2022-11-10] MEDS: CARVEDILOL 3.125 MG TABLET (FP) PO SCH (10:15)
[2022-11-10] MEDS: FUROSEMIDE 40 MG TABLET (FP) PO SCH (10:15)
[2022-11-10] MEDS: DOXEPIN HCL 25 MG CAPSULE PO SCH (10:15)
[2022-11-10] MEDS: HALOPERIDOL 1 MG TABLET PO SCH ×2 (10:15→21:50)
[2022-11-10] MEDS: DEXAMETHASONE SOD PHOSPHATE 10 MG/1 ML VIAL IM SCH (10:16)
[2022-11-10 10:25] LABS: BLOOD UREA NITROGEN 94.5 mg/dL (7-18); CALCIUM 8.9 mg/dL (8.5-10.1)
[2022-11-10 10:28] LABS: CREATININE 5.2 mg/dL (0.55-1.3); PHOSPHOROUS 4.8 mg/dL (2.5-4.9)
[2022-11-10 10:29] LABS: MAGNESIUM 2.1 mg/dL (1.8-2.4)
[2022-11-10] MEDS ORDERED: BISACODYL 5 MG TABLET.DR (FP) PO ONE (10:53)
[2022-11-10] MEDS ORDERED: LACTULOSE 20 GM/30 ML UDC (FOR ORAL USE ONLY) PO ONE (10:56)
[2022-11-10] MEDS ORDERED: GLYCERIN 1 RECTAL SUPPOSITORY, ADULT RC ONE (12:14)
[2022-11-10] MEDS: CARVEDILOL 6.25 MG TABLET (FP) PO SCH (21:50)
[2022-11-10] MEDS: ROSUVASTATIN CA 10 MG TABLET PO SCH (21:50)
[2022-11-11] MEDS: CITALOPRAM HYDROBROMIDE 20 MG TABLET PO SCH (06:36)
[2022-11-11] MEDS: HEPARIN NA (PORCINE) 5,000 UNITS/ML 1ML VIAL SQ SCH ×3 (06:36→22:11)
[2022-11-11] MEDS: LEVOTHYROXINE NA 50 MCG TABLET (FP) PO SCH (06:36)
[2022-11-11] MEDS: INSULIN SLIDING SCALE (NOVOLOG) 1 VIAL SQ SCH ×4 (06:37→22:12)
[2022-11-11] MEDS: INSULIN (LEVEMIR) 100 UNITS/ML UNITS SQ SCH (06:37)
[2022-11-11 09:23] LABS: HEMATOCRIT 33.1 % (32.4-45.2); HEMOGLOBIN 10.5 GM/dL (10.7-15.3); MCH 27.4 pg (25.7-33.7); MCHC 31.8 g/dl (32.0-36.0); MEAN CELL VOLUME 86.4 fl (80-96); MEAN PLT VOLUME 8.7 fl (7.5-11.1); PLATELET COUNT 292 10^3/uL (134-434); RBC 3.83 M/mm3 (3.60-5.2); RDW 15.7 % (11.6-15.6); WHITE BLOOD COUNT 14.1 K/mm3 (4.0-10.0)
[2022-11-11] MEDS: DOLUTEGRAVIR SODIUM 50 MG TABLET (NON-FORMULARY) PO SCH (09:31)
[2022-11-11] MEDS: RILPIVIRINE HCL 25 MG TABLET PO SCH (09:31)
[2022-11-11] MEDS: DEXAMETHASONE SOD PHOSPHATE 10 MG/1 ML VIAL IM SCH (09:31)
[2022-11-11] MEDS: DOCUSATE SODIUM 100 MG CAPSULE (FP) PO SCH ×2 (09:31→22:10)
[2022-11-11] MEDS: amLODIPine BESYLATE 10 MG TABLET (FP) PO SCH (09:31)
[2022-11-11] MEDS: DOXEPIN HCL 25 MG CAPSULE PO SCH (09:32)
[2022-11-11] MEDS: HALOPERIDOL 1 MG TABLET PO SCH ×2 (09:32→22:09)
[2022-11-11] MEDS: CARVEDILOL 6.25 MG TABLET (FP) PO SCH ×2 (09:32→22:09)
[2022-11-11] MEDS: FUROSEMIDE 40 MG TABLET (FP) PO SCH (09:32)
[2022-11-11 09:48] LABS: CALCIUM 8.8 mg/dL (8.5-10.1)
[2022-11-11 09:49] LABS: BLOOD UREA NITROGEN 94.7 mg/dL (7-18); MAGNESIUM 2.2 mg/dL (1.8-2.4)
[2022-11-11 09:52] LABS: PHOSPHOROUS 4.5 mg/dL (2.5-4.9)
[2022-11-11] MEDS: ROSUVASTATIN CA 10 MG TABLET PO SCH (22:09)
[2022-11-11] MEDS: BRIMONIDINE TARTRATE 0.1% OPHTHALMIC 5 ML BOTTLE OU SCH (22:11)
[2022-11-12] MEDS: CITALOPRAM HYDROBROMIDE 20 MG TABLET PO SCH (06:40)
[2022-11-12] MEDS: HEPARIN NA (PORCINE) 5,000 UNITS/ML 1ML VIAL SQ SCH ×3 (06:40→21:18)
[2022-11-12] MEDS: LEVOTHYROXINE NA 50 MCG TABLET (FP) PO SCH (06:41)
[2022-11-12] MEDS: INSULIN (LEVEMIR) 100 UNITS/ML UNITS SQ SCH (06:57)
[2022-11-12] MEDS: INSULIN SLIDING SCALE (NOVOLOG) 1 VIAL SQ SCH ×4 (06:58→21:28)
[2022-11-12] MEDS: DOLUTEGRAVIR SODIUM 50 MG TABLET (NON-FORMULARY) PO SCH (08:07)
[2022-11-12] MEDS: RILPIVIRINE HCL 25 MG TABLET PO SCH (08:07)
[2022-11-12] MEDS: HALOPERIDOL 1 MG TABLET PO SCH ×2 (10:02→21:19)
[2022-11-12] MEDS: FUROSEMIDE 40 MG TABLET (FP) PO SCH (10:02)
[2022-11-12] MEDS: DOCUSATE SODIUM 100 MG CAPSULE (FP) PO SCH ×2 (10:02→21:17)
[2022-11-12] MEDS: amLODIPine BESYLATE 10 MG TABLET (FP) PO SCH (10:02)
[2022-11-12] MEDS: CARVEDILOL 6.25 MG TABLET (FP) PO SCH ×2 (10:03→21:17)
[2022-11-12] MEDS: DOXEPIN HCL 25 MG CAPSULE PO SCH (10:03)
[2022-11-12] MEDS: DEXAMETHASONE SOD PHOSPHATE 10 MG/1 ML VIAL IM SCH (10:03)
[2022-11-12] MEDS: LATANOPROST 0.005% OPHTH SOLN 2.5ML BOTTLE OU SCH (10:28)
[2022-11-12] MEDS: BRIMONIDINE TARTRATE 0.1% OPHTHALMIC 5 ML BOTTLE OU SCH ×2 (10:28→21:19)
[2022-11-12] MEDS: LACTULOSE 20 GM/30 ML UDC (FOR ORAL USE ONLY) PO ONE ×2 (13:52→14:21)
[2022-11-12] MEDS: ROSUVASTATIN CA 10 MG TABLET PO SCH (21:17)
[2022-11-12] MEDS: SENNOSIDES 8.6MG TABLET (FP) PO SCH (21:17)
[2022-11-13] MEDS: HEPARIN NA (PORCINE) 5,000 UNITS/ML 1ML VIAL SQ SCH ×3 (06:14→21:49)
[2022-11-13] MEDS: LEVOTHYROXINE NA 50 MCG TABLET (FP) PO SCH (06:14)
[2022-11-13] MEDS: CITALOPRAM HYDROBROMIDE 20 MG TABLET PO SCH (06:15)
[2022-11-13] MEDS: INSULIN SLIDING SCALE (NOVOLOG) 1 VIAL SQ SCH ×4 (06:19→22:10)
[2022-11-13] MEDS: INSULIN (LEVEMIR) 100 UNITS/ML UNITS SQ SCH (06:20)
[2022-11-13 07:55] LABS: BASO % 1.5 % (0-2.0); EOS % 1.1 % (0-4.5); HEMATOCRIT 33.2 % (32.4-45.2); HEMOGLOBIN 10.6 GM/dL (10.7-15.3); MCH 27.5 pg (25.7-33.7); MCHC 31.9 g/dl (32.0-36.0); MEAN CELL VOLUME 86.3 fl (80-96); MEAN PLT VOLUME 8.5 fl (7.5-11.1); NEUT % 50.4 % (42.8-82.8); PLATELET COUNT 292 10^3/uL (134-434); RBC 3.84 M/mm3 (3.60-5.2); RDW 15.6 % (11.6-15.6); WHITE BLOOD COUNT 15.2 K/mm3 (4.0-10.0)
[2022-11-13 08:21] LABS: ALBUMIN 2.6 g/dl (3.4-5.0)
[2022-11-13 08:22] LABS: CALCIUM 8.5 mg/dL (8.5-10.1)
[2022-11-13 08:23] LABS: BLOOD UREA NITROGEN 91.4 mg/dL (7-18)
[2022-11-13 08:26] LABS: PHOSPHOROUS 4.5 mg/dL (2.5-4.9)
[2022-11-13 08:28] LABS: BILIRUBIN,TOTAL 0.4 mg/dL (0.2-1); TOT PROT 6.2 g/dl (6.4-8.2)
[2022-11-13] MEDS: DOLUTEGRAVIR SODIUM 50 MG TABLET (NON-FORMULARY) PO SCH (08:49)
[2022-11-13] MEDS: RILPIVIRINE HCL 25 MG TABLET PO SCH (08:49)
[2022-11-13] MEDS: DOCUSATE SODIUM 100 MG CAPSULE (FP) PO SCH ×2 (09:00→21:48)
[2022-11-13] MEDS: FUROSEMIDE 40 MG TABLET (FP) PO SCH (09:00)
[2022-11-13] MEDS: SENNOSIDES 8.6MG TABLET (FP) PO SCH ×2 (09:00→21:48)
[2022-11-13] MEDS: amLODIPine BESYLATE 10 MG TABLET (FP) PO SCH (09:00)
[2022-11-13] MEDS: HALOPERIDOL 1 MG TABLET PO SCH ×2 (09:00→21:49)
[2022-11-13] MEDS: CARVEDILOL 6.25 MG TABLET (FP) PO SCH ×2 (09:00→21:48)
[2022-11-13] MEDS: LATANOPROST 0.005% OPHTH SOLN 2.5ML BOTTLE OU SCH (09:01)
[2022-11-13] MEDS: DOXEPIN HCL 25 MG CAPSULE PO SCH (09:01)
[2022-11-13] MEDS: BRIMONIDINE TARTRATE 0.1% OPHTHALMIC 5 ML BOTTLE OU SCH ×2 (09:01→21:48)
[2022-11-13] MEDS: ROSUVASTATIN CA 10 MG TABLET PO SCH (21:48)
[2022-11-14] MEDS: LEVOTHYROXINE NA 50 MCG TABLET (FP) PO SCH (06:26)
[2022-11-14] MEDS: CITALOPRAM HYDROBROMIDE 20 MG TABLET PO SCH (06:26)
[2022-11-14] MEDS: HEPARIN NA (PORCINE) 5,000 UNITS/ML 1ML VIAL SQ SCH ×3 (06:28→21:36)
[2022-11-14] MEDS: INSULIN (LEVEMIR) 100 UNITS/ML UNITS SQ SCH (06:35)
[2022-11-14] MEDS: INSULIN SLIDING SCALE (NOVOLOG) 1 VIAL SQ SCH ×4 (06:35→21:52)
[2022-11-14] MEDS: amLODIPine BESYLATE 10 MG TABLET (FP) PO SCH (09:29)
[2022-11-14] MEDS: DOXEPIN HCL 25 MG CAPSULE PO SCH (09:29)
[2022-11-14] MEDS: DOCUSATE SODIUM 100 MG CAPSULE (FP) PO SCH ×3 (09:29→21:37)
[2022-11-14] MEDS: FUROSEMIDE 40 MG TABLET (FP) PO SCH (09:29)
[2022-11-14] MEDS: CARVEDILOL 6.25 MG TABLET (FP) PO SCH ×2 (09:29→21:37)
[2022-11-14] MEDS: HALOPERIDOL 1 MG TABLET PO SCH ×2 (09:29→21:37)
[2022-11-14] MEDS: SENNOSIDES 8.6MG TABLET (FP) PO SCH ×2 (09:29→21:36)
[2022-11-14] MEDS: RILPIVIRINE HCL 25 MG TABLET PO SCH (09:30)
[2022-11-14] MEDS: DOLUTEGRAVIR SODIUM 50 MG TABLET (NON-FORMULARY) PO SCH (09:30)
[2022-11-14] MEDS: LATANOPROST 0.005% OPHTH SOLN 2.5ML BOTTLE OU SCH (09:30)
[2022-11-14] MEDS: BRIMONIDINE TARTRATE 0.1% OPHTHALMIC 5 ML BOTTLE OU SCH ×2 (09:30→21:37)
[2022-11-14] MEDS ORDERED: LACTULOSE 20 GM/30 ML UDC (FOR ORAL USE ONLY) PO ONE (11:54)
[2022-11-14] MEDS: ROSUVASTATIN CA 10 MG TABLET PO SCH (21:36)
[2022-11-15] MEDS: LEVOTHYROXINE NA 50 MCG TABLET (FP) PO SCH (06:26)
[2022-11-15] MEDS: DOCUSATE SODIUM 100 MG CAPSULE (FP) PO SCH ×3 (06:26→21:50)
[2022-11-15] MEDS: CITALOPRAM HYDROBROMIDE 20 MG TABLET PO SCH (06:26)
[2022-11-15] MEDS: HEPARIN NA (PORCINE) 5,000 UNITS/ML 1ML VIAL SQ SCH ×3 (06:27→21:50)
[2022-11-15] MEDS: INSULIN SLIDING SCALE (NOVOLOG) 1 VIAL SQ SCH ×4 (07:12→21:51)
[2022-11-15] MEDS: INSULIN (LEVEMIR) 100 UNITS/ML UNITS SQ SCH (07:12)
[2022-11-15 07:53] LABS: HEMATOCRIT 33.6 % (32.4-45.2); HEMOGLOBIN 10.6 GM/dL (10.7-15.3); MCH 27.6 pg (25.7-33.7); MCHC 31.7 g/dl (32.0-36.0); PLATELET COUNT 272 10^3/uL (134-434); RBC 3.86 M/mm3 (3.60-5.2); RDW 15.9 % (11.6-15.6); WHITE BLOOD COUNT 13.5 K/mm3 (4.0-10.0)
[2022-11-15 08:32] LABS: BLOOD UREA NITROGEN 83.2 mg/dL (7-18)
[2022-11-15 08:33] LABS: CREATININE 4.9 mg/dL (0.55-1.3); PHOSPHOROUS 4.4 mg/dL (2.5-4.9)
[2022-11-15 08:36] LABS: CALCIUM 8.4 mg/dL (8.5-10.1)
[2022-11-15 08:37] LABS: MAGNESIUM 1.6 mg/dL (1.8-2.4)
[2022-11-15] MEDS: DOLUTEGRAVIR SODIUM 50 MG TABLET (NON-FORMULARY) PO SCH (09:22)
[2022-11-15] MEDS: RILPIVIRINE HCL 25 MG TABLET PO SCH (09:22)
[2022-11-15] MEDS: SENNOSIDES 8.6MG TABLET (FP) PO SCH ×2 (09:27→21:58)
[2022-11-15] MEDS: HALOPERIDOL 1 MG TABLET PO SCH ×2 (09:27→21:50)
[2022-11-15] MEDS: FUROSEMIDE 40 MG TABLET (FP) PO SCH (09:27)
[2022-11-15] MEDS: CARVEDILOL 6.25 MG TABLET (FP) PO SCH ×2 (09:27→21:50)
[2022-11-15] MEDS: amLODIPine BESYLATE 10 MG TABLET (FP) PO SCH (09:27)
[2022-11-15] MEDS: DOXEPIN HCL 25 MG CAPSULE PO SCH (09:28)
[2022-11-15] MEDS: BRIMONIDINE TARTRATE 0.1% OPHTHALMIC 5 ML BOTTLE OU SCH ×2 (09:28→21:50)
[2022-11-15] MEDS: LATANOPROST 0.005% OPHTH SOLN 2.5ML BOTTLE OU SCH (09:28)
[2022-11-15] MEDS ORDERED: MAGNESIUM SULF 50% (8.12 MEQ/2 ML-1 GM VIAL) IVPB ONE (09:45)
[2022-11-15] MEDS ORDERED: MAGNESIUM OXIDE 400 MG TABLET (FP) PO ONE (12:24)
[2022-11-15] MEDS: ROSUVASTATIN CA 10 MG TABLET PO SCH (21:50)
[2022-11-16] MEDS: HEPARIN NA (PORCINE) 5,000 UNITS/ML 1ML VIAL SQ SCH (05:59)
[2022-11-16] MEDS: DOCUSATE SODIUM 100 MG CAPSULE (FP) PO SCH (05:59)
[2022-11-16] MEDS: LEVOTHYROXINE NA 50 MCG TABLET (FP) PO SCH (06:00)
[2022-11-16] MEDS: CITALOPRAM HYDROBROMIDE 20 MG TABLET PO SCH (06:00)
[2022-11-16] MEDS: INSULIN (LEVEMIR) 100 UNITS/ML UNITS SQ SCH (06:06)
[2022-11-16] MEDS: INSULIN SLIDING SCALE (NOVOLOG) 1 VIAL SQ SCH (06:06)
[2022-11-16] MEDS: DOLUTEGRAVIR SODIUM 50 MG TABLET (NON-FORMULARY) PO SCH (08:45)
[2022-11-16] MEDS: RILPIVIRINE HCL 25 MG TABLET PO SCH (08:45)
[2022-11-16 08:48] VITALS: BP 146/72; PULSE 85; RESP 18; TEMP 98.3
[2022-11-16] MEDS: SENNOSIDES 8.6MG TABLET (FP) PO SCH (09:21)
[2022-11-16] MEDS: HALOPERIDOL 1 MG TABLET PO SCH (09:21)
[2022-11-16] MEDS: amLODIPine BESYLATE 10 MG TABLET (FP) PO SCH (09:21)
[2022-11-16] MEDS: FUROSEMIDE 40 MG TABLET (FP) PO SCH (09:22)
[2022-11-16] MEDS: CARVEDILOL 6.25 MG TABLET (FP) PO SCH (09:22)
[2022-11-16] MEDS: BRIMONIDINE TARTRATE 0.1% OPHTHALMIC 5 ML BOTTLE OU SCH (09:22)
[2022-11-16] MEDS: LATANOPROST 0.005% OPHTH SOLN 2.5ML BOTTLE OU SCH (09:22)
[2022-11-16] MEDS: DOXEPIN HCL 25 MG CAPSULE PO SCH (09:22)
[2022-11-16] MEDS ORDERED: MAGNESIUM OXIDE 400 MG TABLET (FP) PO ONE (11:00)
== END 2022-11-16 10:15 | DRG 974 ==
LOC: JER 22:55 → INTOOBSV 11-04 01:09 → UNDOADMOB 11-04 01:09 → JERBED 11-04 01:09 → J4S 11-04 15:07 → OBSVTOIN 11-07 14:11
PROVIDERS: ADMIT Internal Medicine; ATTEND Internal Medicine
DX: U07.1 COVID-19 (principal); I50.23 Acute on chronic systolic (congestive) heart failure; B20 Human immunodeficiency virus [HIV] disease; J12.82 Pneumonia due to coronavirus disease 2019; J96.01 Acute respiratory failure with hypoxia; N18.5 Chronic kidney disease, stage 5; I13.2 Hypertensive heart and chronic kidney disease with heart failure and with stage 5 chronic kidney disease, or end stage renal disease; E87.1 Hypo-osmolality and hyponatremia; N17.9 Acute kidney failure, unspecified; E03.9 Hypothyroidism, unspecified; E66.9 Obesity, unspecified; Z68.34 Body mass index [BMI] 34.0-34.9, adult; K59.00 Constipation, unspecified; I25.119 Atherosclerotic heart disease of native coronary artery with unspecified angina pectoris; Z95.5 Presence of coronary angioplasty implant and graft
CPT/HCPCS: 0241U-QW; 36415; 71045-TC-FY; 76604; 76937; 80048; 80053; 82550; 82553; 82728; 82962; 82977; 83615; 83735; 83880; 84100; 84484; 85025; 85027; 85379; 85610; 85730; 86140; 86803; 87040; 87340; 87517; 93005; 93010; 93306-TC; 93308; 93970-TC; 94761; 97116-GP; 97161-GP; 99285-25; C9803-CS; G0378; J1100; J1644; U0003; U0005

== ENCOUNTER 2023-01-08 08:02 | Emergency (ER) | payer OTHER ==
[2023-01-08 08:25] VITALS: TEMP 97.7; BMI 32.2
[2023-01-08] MEDS ORDERED: morphine CARPU-JECT 4 MG/1 ML DISP.SYRIN IVPUSH ONE (08:43)
[2023-01-08] MEDS ORDERED: morphine SULFATE 4 MG/ML VIAL ONE (09:08)
[2023-01-08 09:18] LABS: BASO % 1.2 % (0-2.0); EOS % 2.3 % (0-4.5); HEMATOCRIT 35.1 % (32.4-45.2); HEMOGLOBIN 11.7 GM/dL (10.7-15.3); LYMPH % 41.6 % (8-40); MCH 28.2 pg (25.7-33.7); MCHC 33.4 g/dl (32.0-36.0); MEAN CELL VOLUME 84.3 fl (80-96); NEUT % 50.9 % (42.8-82.8); PLATELET COUNT 363 10^3/uL (134-434); RBC 4.16 M/mm3 (3.60-5.2); RDW 16.2 % (11.6-15.6); WHITE BLOOD COUNT 11.4 K/mm3 (4.0-10.0)
[2023-01-08 09:37] LABS: CALCIUM 8.7 mg/dL (8.5-10.1)
[2023-01-08 09:38] LABS: ALBUMIN 2.2 g/dl (3.4-5.0); BLOOD UREA NITROGEN 46.2 mg/dL (7-18)
[2023-01-08 09:43] LABS: BILIRUBIN,TOTAL 0.4 mg/dL (0.2-1); TOT PROT 6.3 g/dl (6.4-8.2)
[2023-01-08 09:53] LABS: EPI CELLS 23 /uL (0-25.1); HYALINE CASTS 0 /uL (0-3.1); URINE APPEARANCE CLEAR; URINE BACTERIA 3 /uL (0-1359); URINE BILIRUBIN NEGATIVE (NEGATIVE); URINE COLOR YELLOW; URINE GLUCOSE (UA) 3+ (NEGATIVE); URINE KETONE TRACE (NEGATIVE); URINE LEUK ESTERASE NEGATIVE (NEGATIVE); URINE NITRITE NEGATIVE (NEGATIVE); URINE PROTEIN 4+ (NEGATIVE); URINE RBC 30 /uL (0-23.9); URINE UROBILINOGEN 0.2 mg/dL (0.2-1.0); URINE WBC 3 /uL (0-25.8)
[2023-01-08] MEDS ORDERED: ACETAMINOPHEN 1000 MG/100 ML BAG IVPB ONE (11:25)
[2023-01-08] MEDS ORDERED: ACETAMINOPHEN INJECTION 100 ML IVPB ONE (11:36)
[2023-01-08 14:58] VITALS: RESP 20
[2023-01-08] MEDS ORDERED: MAGNESIUM CITRATE 300 ML BOTTLE PO ONE (15:06)
[2023-01-08] MEDS ORDERED: POLYETHYLENE GLYCOL (HEALTHYLAX) 3350 17 GM PACKET PO ONE (15:30)
[2023-01-08] MEDS ORDERED: POLYETHYLENE GLYCOL (HEALTHYLAX) 3350 17 GM PACKET ONE (15:33)
[2023-01-08 19:15] VITALS: BP 165/88; PULSE 90
== END 2023-01-08 20:30 | disposition short-term general hospital (02) ==
LOC: JER 08:02
PROC: 3E033GC Introduction of Other Therapeutic Substance into Peripheral Vein, Percutaneous Approach (ICD-10-PCS; principal; 2023-01-08)
DX: S22.089A Unspecified fracture of T11-T12 vertebra, initial encounter for closed fracture (principal); R33.9 Retention of urine, unspecified; K59.00 Constipation, unspecified; Y99.9 Unspecified external cause status
CPT/HCPCS: 0241U-QW; 36415; 74176-TC; 80053; 81003; 85025; 87086; 99285-25

== ENCOUNTER 2023-07-19 04:25 | Day surgery (SDC) | payer OTHER ==
[2023-07-17 15:59] VITALS: BMI 34.0
[2023-07-19] MEDS ORDERED: LIDOCAINE HCL 1%, 10 MG/ML (20ML VIAL) ONE ×2 (07:18→09:50)
[2023-07-19] MEDS ORDERED: HEPARIN NA (PORCINE) 5,000 UNITS/ML 1ML VIAL ONE ×3 (07:18→09:50)
[2023-07-19] MEDS ORDERED: PAPAVERINE HCL 30 MG/1 ML 10 ML VIAL NR ONE ×2 (07:19→09:50)
[2023-07-19] MEDS ORDERED: POVIDONE-IODINE OINTMENT 10% - 28.4 GM TUBE ONE ×2 (09:50→12:00)
[2023-07-19] MEDS ORDERED: oxyCODONE HCL 5 MG TABLET PO PRN (09:51)
[2023-07-19] MEDS ORDERED: ONDANSETRON 4 MG/2 ML VIAL IVPUSH PRN (09:51)
[2023-07-19] MEDS ORDERED: SODIUM CHLORIDE 1,000 ML IV SCH (10:00)
[2023-07-19] MEDS ORDERED: MIDAZOLAM HCL 2 MG/2 ML SINGLE DOSE VIAL ONE (10:35)
[2023-07-19 10:37] LABS: POTASSIUM 2.8 mmol/L (3.5-5.1)
[2023-07-19] MEDS ORDERED: LIDOCAINE HCL/PF 2% SDV 5ML VIAL ONE (10:37)
[2023-07-19] MEDS ORDERED: PROPOFOL 20 ML ONE (10:37)
[2023-07-19] MEDS ORDERED: CLINDAMYCIN PHOSPHATE 600 MG/4 ML VIAL ONE (10:44)
[2023-07-19] MEDS ORDERED: CLINDAMYCIN 600 MG PREMIX BAG IVPB ONE (10:45)
[2023-07-19] MEDS ORDERED: ONDANSETRON 4 MG/2 ML VIAL ONE (11:11)
[2023-07-19 16:46] VITALS: BP 116/60; PULSE 73; RESP 18; TEMP 98.5
== END 2023-07-19 14:50 ==
LOC: JASU-SURG 04:25
PROVIDERS: ATTEND Surgery
PROC: 03180ZD Bypass Left Brachial Artery to Upper Arm Vein, Open Approach (ICD-10-PCS; principal; 2023-07-19 10:00)
DX: I12.0 Hypertensive chronic kidney disease with stage 5 chronic kidney disease or end stage renal disease (principal); E11.22 Type 2 diabetes mellitus with diabetic chronic kidney disease; N18.6 End stage renal disease; Z99.2 Dependence on renal dialysis
CPT/HCPCS: 36415; 82962; 84132; 94760; J1644